=== PATIENT | male | born 1955 | race Caucasian/White ===

== ENCOUNTER 2017-04-03 16:30 | Inpatient (IN) ==
[2017-04-03] MEDS ORDERED: Naloxone 0.4 MG/ML INJ IVP PRN (18:53)
[2017-04-03] MEDS ORDERED: *HR* Dextrose 50 % in Water (Syg) 50 ML SYRINGE IVP PRN (19:00)
[2017-04-03] MEDS ORDERED: D5% in Water 1,000 ML IVC PRN (19:00)
[2017-04-03] MEDS ORDERED: Dextrose Gel 15 GM PO PRN ×2 (19:00)
[2017-04-03] MEDS ORDERED: Albuterol 2.5 MG/3 ML NEBULIZER IH PRN (19:45)
[2017-04-03] MEDS ORDERED: Aspirin 325 MG TABLET PO ONE (19:52)
[2017-04-03] MEDS: Nicotine 21 MG PATCH.TD24 TD SCH (19:57)
[2017-04-03] MEDS ORDERED: methylPREDNISolone 125 MG/2 ML VIAL IVP ONE (20:00)
--- NOTE | 2017-04-03 20:09 | Internal Med History&Physical ---
<Becky Azul R - Last Filed: 04/03/17 23:26> Date of Encounter: 04/03/17 Assessment and Plan (1) Acute respiratory acidosis Current visit: Yes Status: Acute Acute hypercapneic respiratory failure / Respiratory acidosis: Treat with BiPAP therapy and bronchodilators. Monitor ABGs (2) Hyperkalemia Current visit: Yes Status: Acute Treat with kayexalate Internal Medicine - H&P: HPI History of present illness: Mr. Thompson is a 61 year old male Internal Medicine - H&P: Meds Aspirin 81 mg PO DAILY 03/15/16 [History] Cholecalciferol (Vitamin D3) [Vitamin D3] 1,000 unit PO BID 03/15/16 [History] Insulin NPH/REG 70/30 (HUMAN) [Humulin 70/30 Vial] 10 unit SQ QPM 03/15/16 [ History] Insulin NPH/REG 70/30 (HUMAN) [Humulin 70/30 Vial] 12 unit SQ QAM 03/15/16 [ History] Magnesium 400 mg PO BID 03/15/16 [History] Albuterol Sulfate [Ventolin Hfa] 18 gm IH Q4H PRN #2 hfa.aer.ad 03/17/16 [Rx] Budesonide/Formoterol 80/4.5 [Symbicort 80/4.5] 2 puff IH BIDR #2 inhaler 03/17 [Rx] Baclofen 20 mg PO QID 04/03/17 [History] Cyanocobalamin (Vitamin B-12) [Vitamin B12] 1,000 mcg PO BID 04/03/17 [History] Lisinopril [Zestril] 20 mg PO BID 04/03/17 [History] Loratadine [Allergy Relief] 10 mg PO DAILY 04/03/17 [History] Omeprazole 20 mg PO DAILY 04/03/17 [History] Tiotropium [Spiriva] 18 mcg IH DAILY 04/03/17 [History] Tramadol HCl [Ultram] 50 mg PO QID PRN 04/03/17 [History] levETIRAcetam [Keppra] 250 mg PO BID 04/03/17 [History] Allergies No Known Allergies Allergy (Verified 03/15/16 17:09) All Systems PM: A 10-system review of systems was performed and is negative for pertinent findings except as documented above in the HPI. - Constitutional Vitals: Temp Pulse Resp BP Pulse Ox 99.0 F 95 31 132/67 95 04/03/17 19:01 04/03/17 20:00 04/03/17 19:01 04/03/17 19:01 04/03/17 19:01 Internal Med - H&P Results - Labs Labs: Cardiac Enzymes 04/03/17 Range/Units 21:43 Troponin I 0.04 H* (0-0.03) ng/mL Urine 04/03/17 Range/Units 21:04 Urine Color Dark Yellow (Yellow) Urine Clarity Clear (Clear) Urine pH 5.5 (5.0-8.0) pH Units Ur Specific [place] 1.029 H (1.010-1.025) Urine Protein 100 H (Neg-Trace) mg/dL Urine Glucose (UA) 100 H (Normal) mg/dL - ABG Interpretation ABG results: 04/03/17 22:25 ABG pH 7.31 L ABG pCO2 88 H* ABG pO2 92 ABG HCO3 44.3 H ABG Total CO2 47.0 H ABG O2 Saturation 96 ABG Base Excess 13.2 H - Attending Attestation I performed history and physical examination of the patient and discussed management with the DATA STORAGE SPECIALIST / ANP. I reviewed the DATA STORAGE SPECIALIST / ANPs note and agree with documented findings and plan of care. 61 Y/M with h/o HTN, hyperlipidemia, type 2 diabetes, COPD, cirrhosis, seizure disorder - presented to [facility] ER with complaints of shortness of breath and slurred speech. ABG which revealed hypercapnea with PCO2 of 88, and pH of 7.24. Troponin was 0.05, BNP was elevated to 1246. He was started on BiPAP therapy and admitted to the hospitalist service. O/E: Not in acute. Bilateral basal crackles heard. Cardiac: Regular rate and rhythm. Trace bilateral leg edema. EKG personally reviewed by me shows sinus rhythm, T-wave inversions in leads 2, 3, aVF, V1 to V6. Chest x-ray personally reviewed by me - suspect vascular congestion. Labs reviewed. A/P: Acute hypercapneic respiratory failure / Respiratory acidosis: Treat with BiPAP therapy and bronchodilators Acute exacerbation of COPD: Treat with bronchodilators , Solu-Medrol, Azithromycin Possible CHF exacerbation / Elevated BNP: Treat with dose of IV Lasix. Echocardiogram. Monitor renal functions and BNP. Acute kidney injury: Monitor renal function Hyperkalemia: Treat with kayexalate DM: sliding scale insulin Slurred speech: MRI, carotid doppler, echo. Consider Neurology consult <Kalyani Malone - Last Filed: 04/04/17 00:39> Date of Encounter: 04/03/17 Time of Encounter: 20:02 Assessment and Plan (1) Slurred speech Current visit: Yes Status: Acute Patient with slurred speech starting yesterday and continued to today. Head CT was negative for acute intracranial abnormality. Tongue is midline, smile symmetrical, strength equal bilaterally. Possibly due to CO2 narcosis, but will work up for CVA. 325mg of aspirin given. Speech consulted for swallow evaluation MRI head/brain echocardiogram carotid dopplers lipid panel with morning labs (2) Acute exacerbation of chronic obstructive airways disease Current visit: No Status: Acute Patient reporting cough, increasing shortness of breath. Also reporting fever, chills, sweats. ABG reveals respiratory acidosis with pH 7.24 and hypercapnea with PCO2 of 88. Patient started on bipap. Continue bipap and titrate to maintain O2 saturation > 90% Repeat ABG now that he's been on bipap for several hours duoneb treatments QID albuterol nebulizer Q2 PRN solu-medrol 40mg IVP BID mucinex BID azithromycin IVPB daily sputum cultures (3) 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, type II Current visit: No Status: Acute check A1c Check blood sugars Q6h while NPO and ACHS when eating Levemir 8u HS tonight as patient is NPO until he completes swallow study Sliding scale correction dose hypoglycemic protocol. 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 Bipap continuously. Recheck ABG. (5) Renal insufficiency Current visit: No Status: Acute BUN 27 and Cr 1.59. Patient reports poor appetite and poor oral intake over the last several days. Patient also reports decreased urine output and difficulty urinating. Will check UA and urine culture. Patient given 1L bolus at [place] ER. Hold lisinopril. Avoid NSAIDs Recheck chemistry in the morning. (6) Congestive heart failure Current visit: Yes Status: Suspected Suspected CHF with shortness of breath, elevated BNP, trace BLE edema. Patient with no known history of CHF. Will give 20mg of lasix IVP, measure I/Os and daily weights. echocardiogram ordered. Qualifiers: Congestive heart failure type: unspecified congestive heart failure type Congestive heart failure chronicity: acute Qualified Code(s): I50.9 - Heart failure, unspecified (7) Tobacco abuse Current visit: No Status: Acute Patient continues to smoke despite significant COPD. Discussed smoking cessation and offered encouragement. nicotine patch ordered. Smoking cessation education. (8) DVT prophylaxis Current visit: Yes Status: Acute anti-embolic stockings heparin 5000u SQ TID Internal Medicine - H&P: HPI Chief complaint: shortness of breath Admitted From: Emergency Dept Plans for Post Hospital Care: Home History of present illness: Mr. Thompson is a 61 year old male with HTN, hyperlipidemia, type 2 diabetes, COPD , cirrhosis, seizure disorder, who presented to [place] ER with complaints of shortness of breath and slurred speech. The patient reports that he has had worsening shortness of breath over the last several days, and he reports not feeling well with headache, lightheadedness, decreased appetite, palpitations, chills and sweats. Patient's reports his temperature was 102 last evening. He reports a cough, and feels he needs to cough something up, but is unable to get anything out. Yesteraday, he developed slurred speech and this has continued. He denies any numbness or tingling, focal weakness. Evaluation in the [place] ED included an ABG which revealed hypercapnea with PCO2 of 88 , and pH of 7.24. Troponin was mildly elevated at 0.05, BNP was elevated to 1246, but with no baseline for comparison. He had CELINA with BUN and Cr of 27 and 1.59, respectively, creatinine up from recent baseline of 0.8. CT of the head showed no acute abnormality. CXR showed no acute abnormality. On exam, patient was alert and oriented, but difficult to understand with slurred speech. Heart had regular rate and rhythm. Lungs had expiratory rhonchi, prolonged expiratory phase and diminished sounds in the based. Equal strength bilaterally, with symmetric smile and tongue protrusion. Prolonged capillary refill in bilateral toes, bilateral feet cold and pulses +1 bilaterally. Past Med Surg Social Fam HX - Past Medical History Medical history: COPD, coronary artery disease, diabetes, hepatitis, hyperlipidemia, hypertension, liver disease Psychiatric history: anxiety, depression - Past Surgical History Surgical History: cholecystectomy, orthopedic, other (ankle), other - Social History Smoking Status: Current every day smoker (1PPD) Smokeless Tobacco Status: No Alcohol use: none Drug use: none, other - Family History Mother Living Status: Still Living Hx Family Endocrine Disorder: Yes (DM) Father Living Status: Still Living Hx Family Cardiac Disorders: Yes (DE, CABG) Hx Family Endocrine Disorder: Yes (DM) All Systems PM: A 10-system review of systems was performed and is negative for pertinent findings except as documented above in the HPI. - Constitutional Constitutional: anorexia, chills, malaise, night sweats, no fever(s) - EENT Eyes: no change in vision, no discharge, no pain, no photophobia Ears: no ear discharge, no ear pain, no tinnitus Nose, mouth and throat: sore throat, no dysphagia, no nasal discharge, no neck pain - Cardiovascular Cardiovascular ROS IM: dyspnea, lightheadedness, palpitations, no chest pain, no diaphoresis, no syncope - Respiratory Respiratory: cough, dyspnea, wheezing, chest congestion, no excessive phlegm production - Gastrointestinal Gastrointestinal: no abdominal pain, no diarrhea, no hematemesis, no hematochezia, no melena, no nausea, no vomiting - Musculoskeletal Musculoskeletal ROS IM: no numbness, no tingling - Integumentary Integumentary IM: no rash, no unusual bruising - Neurological Neurological ROS: abnormal speech, no confusion, no convulsions, no focal weakness, no numbness, no tingling, no tremor(s) - Hematologic/Lymphatic Hematologic/Lymphatic: no easy bruising - Constitutional Vitals: Temp Pulse Resp BP Pulse Ox 99.0 F 93 31 132/67 95 04/03/17 19:01 04/03/17 19:01 04/03/17 19:01 04/03/17 19:01 04/03/17 19:01 General appearance: Present: A&O X 3, pleasant, obese - Head Head exam: Present: atraumatic, normocephalic - Eye Eye exam: Present: PERRL, conjuntiva pink, sclera anicteric Pupils: Present: PERRL - Neck Neck exam general surgery: Present: supple, trachea midline. Absent: lymphadenopathy - Respiratory Respiratory exam: Present: decreased breath sounds, prolonged expiratory phase, rhonchi. Absent: accessory muscle use, rales, wheezes Additional comments: expiratory rhonchi, diminished bases. - Cardiovascular Cardiovascular exam: Present: RRR, +S1, +S2. Absent: diastolic murmur, gallop, rubs, systolic murmur - GI/Abdominal GI/Abdominal exam: Present: normal bowel sounds, soft, no peritoneal signs. Absent: distended, tenderness - Extremities Exam Extremities exam: Present: pedal edema (trace), radial pulses palpable and symetrical. Absent: calf tenderness, cyanotic, normal capillary refill ( prolonged) - Neurological Exam Neurological exam: Present: oriented X3. Absent: pronater drift, facial droop, speech deficit - Expanded Neurological Exam Speech: Present: slurred Cranial Nerves: EOM's intact PM: Normal, tongue deviation PM: Normal Neuro motor strength exam: LUE: 4, RUE: 4, LLE: 4, RLE: 4 - Skin Skin exam: Present: dry, intact Internal Med - H&P Results - Labs Labs: Labs from [place] ED: WBC 8.8 Hgb 14.4 Hct 46.1 Plt 222 Na 134 K 5.1 CL 90 CO2 35 BUN 27 Cr 1.59 Glu 292 Trop 0.05 BNP 1246 ABG pH .24 PCO2 88 PO2 79 HCO3 37.4 CO2 40.1 O2 sat 92%
[2017-04-03] MEDS: Azithromycin 500 MG in D5% in Water 250 ML IVPB SCH (20:48)
[2017-04-03] MEDS: Insulin LISPRO 300 UNITS/3 ML VIAL SQ SCH (20:49)
[2017-04-03] MEDS: Insulin DETEMIR 100 UNIT/ML X5UNITS SQ SCH (20:49)
[2017-04-03] MEDS: Magnesium Oxide 400 MG TABLET PO SCH (20:49)
[2017-04-03] MEDS: levETIRAcetam 250 MG TABLET PO SCH (20:49)
[2017-04-03] MEDS ORDERED: Insulin DETEMIR 100 UNIT/ML X5UNITS SQ SCH (21:00)
[2017-04-03 21:13] LABS: Bilirubin,Urine Small (Negative); Blood,Urine Negative (Negative); Color,Urine Dark Yellow (Yellow); Glucose,Urine (UA) 100 mg/dL (Normal); Ketones,Urine Negative (Negative); Leukocyte Esterase,Urine Negative (Negative); Nitrite,Urine Negative (Negative); PH,Urine 5.5 pH Units (5.0-8.0); Protein,Urine 100 mg/dL (Neg-Trace); Specific Gravity,Urine 1.029 (1.010-1.025); Urobilinogen,Urine Normal (Normal)
[2017-04-03 21:16] LABS: Clarity,Urine Clear (Clear); Squamous Epithelial Cell,Urine Many per lpf (None-Few)
[2017-04-03 21:28] LABS: Bacteria,Urine Few per hpf (None-Few); Hyaline Casts,Urine Few per lpf (None-Few)
[2017-04-03 22:33] LABS: ABG Base Excess 13.2 mEq/L (-2.0 to 3.0); ABG HCO3 44.3 mEQ/L (21-27); ABG Oxygen Saturation 96 % (95-98); ABG PH 7.31 pH Units (7.32-7.45); ABG PO2 92 mmHg (85-104)
[2017-04-03 22:34] LABS: Blood Gas FiO2 50 %
[2017-04-03 22:35] LABS: ABG PCO2 88 mmHg (35-45)
[2017-04-03] MEDS ORDERED: Furosemide 20 MG/2 ML VIAL IVP ONE (22:47)
[2017-04-03] MEDS: Budesonide/Formoterol 160/4.5 MDI IH SCH (23:06)
[2017-04-03] MEDS: Ipratropium/Albuterol Neb 3 ML IH SCH (23:06)
[2017-04-03 23:32] LABS: Hemoglobin A1C 9.5 %
[2017-04-03] MEDS: *HR* Heparin 5,000 UNIT/ML VIAL SQ SCH (23:48)
[2017-04-04 01:18] LABS: ABG HCO3 47.5 mEQ/L (21-27); ABG Oxygen Saturation 90 % (95-98); ABG PH 7.33 pH Units (7.32-7.45); ABG PO2 64 mmHg (85-104); ABG TCO2 50.3 mEq/L (20-26)
[2017-04-04 01:20] LABS: ABG PCO2 90 mmHg (35-45); Blood Gas FiO2 50 %
[2017-04-04] MEDS: Ipratropium/Albuterol Neb 3 ML IH SCH ×4 (04:00→23:42)
[2017-04-04 05:29] LABS: BUN/Creatinine Ratio 21 (6-26); Blood Urea Nitrogen 29 mg/dL (8-26); Calcium 8.4 mg/dL (8.6-10.8); Carbon Dioxide 39 mEq/L (19-29); Chloride 91 mEq/L (98-109); Chol/HDL Ratio 3.4 (0-4.9); Cholesterol 98 mg/dL (< 200); Glucose 244 mg/dL (70-99); HDL Cholesterol 29 mg/dL (40-59); LDL Cholesterol,Calculated 53 mg/dL (0-99); Osmolality,Calculated 298 (280-300); Potassium 4.9 mEq/L (3.5-4.5); Sodium 137 mEq/L (136-145); Triglycerides 80 mg/dL (< 150); eGFR For African Americans > 60 (> 60); eGFR For Non-African Americans 52 (> 60)
[2017-04-04 05:30] LABS: Basophils % 0.1 %; Hematocrit 42.6 % (37.5-50.1); Immature Granulocytes % 0.4 % (0-4); Lymphocytes # 0.9 K/mcL (0.6-4.6); Lymphocytes % 11.6 %; Mean Corpuscular HGB Conc 30.5 g/dL (31.6-35.5); Mean Corpuscular Hemoglobin 28.3 pg (28.0-33.3); Mean Corpuscular Volume 92.6 fL (83.0-100.0); Mean Platelet Volume 10.8 fL (9.4-12.4); Monocytes # 0.2 K/mcL (0.0-1.3); Monocytes % 2.4 %; Neutrophils # 6.3 K/mcL (1.6-8.9); Platelet Count 183 K/mcL (140-400); Segmented Neutrophils % 85.5 %
[2017-04-04] MEDS: MethylPREDNISolone 40 MG/ML VIAL IVP SCH ×2 (05:32→18:58)
[2017-04-04] MEDS ORDERED: methylPREDNISolone 125 MG/2 ML VIAL IVP SCH (06:00)
[2017-04-04 06:21] LABS: ABG Base Excess 17.9 mEq/L (-2.0 to 3.0); ABG Oxygen Saturation 91 % (95-98); ABG PH 7.37 pH Units (7.32-7.45); ABG PO2 62 mmHg (85-104); ABG TCO2 50.5 mEq/L (20-26)
[2017-04-04 06:22] LABS: Blood Gas FiO2 40 %
[2017-04-04 06:23] LABS: ABG PCO2 83 mmHg (35-45)
[2017-04-04] MEDS: Magnesium Oxide 400 MG TABLET PO SCH ×2 (08:27→20:50)
[2017-04-04] MEDS: Nicotine 21 MG PATCH.TD24 TD SCH (08:27)
[2017-04-04] MEDS: levETIRAcetam 250 MG TABLET PO SCH ×2 (08:27→20:50)
[2017-04-04] MEDS: Aspirin 81 MG TAB.CHEW PO SCH (08:27)
[2017-04-04] MEDS: *HR* Heparin 5,000 UNIT/ML VIAL SQ SCH ×2 (08:27→15:58)
[2017-04-04] MEDS: traMADol 50 MG TABLET PO PRN ×2 (08:37→14:34)
[2017-04-04] MEDS ORDERED: Tiotropium 18 MCG inhalation IH SCH (09:00)
[2017-04-04] MEDS: Budesonide/Formoterol 160/4.5 MDI IH SCH (10:45)
[2017-04-04] MEDS: Insulin LISPRO 300 UNITS/3 ML VIAL SQ SCH ×4 (11:20→21:19)
--- NOTE | 2017-04-04 12:59 | ECHO - Doppler Report ---
Echo with Saline Contrast Name: Bhavesh Thompson Date of Study: 04/04/2017 Date: 1955 Ht: 71.0 in Medical Record#: [id number] Age: 61 Wt: 241.0 lb Gender: Male BSA: 2.28 Order #: [id number] Location: [facility] Room #: 2N08 Reading Physician: Celeste Wu DO Manager Control: Cricket Rdz Ordering Physician: Kalyani Malone CNP Primary Physician: [facility] Indications: Slurred speech Impressions: Technically challenging with off-axis images. LVEF 60%. Normal left ventricular size and systolic function. There is evidence of mild diastolic dysfunction of the left ventricle. Normal right ventricular size and function. No significant valvular dysfunction. No pulmonary hypertension. Left Ventricular Wall Motion: Rest Echo Findings All wall segments showed normal motion. Findings: Study Quality * Technically challenging exam with suboptimal windows. Images taken off-axis. ECG Findings * Normal sinus rhythm. Left Ventricle * LVEF 60%. * Normal LV chamber size, wall thickness and function. * Mild left ventricular diastolic dysfunction. Aortic Valve * No aortic regurgitation. * No aortic stenosis. * Trileaflet aortic valve. * Normal aortic valve structure. Mitral Valve * No mitral regurgitation. * No mitral stenosis. * Normal appearing structure. Tricuspid Valve * Trace tricuspid regurgitation. * Normal tricuspid valve structure. Pulmonic Valve * Pulmonic valve is not well visualized. * No pulmonic stenosis. * No pulmonic regurgitation. Pulmonary Artery * Pulmonary artery not well visualized. Interatrial Septum * No evidence of PFO by color Doppler. * No evidence of PFO with agitated saline contrast. Pericardium * There is no pericardial effusion present. Left Atrium * Normal left atrial size. Right Atrium * Right atrium is not well visualized. Right Ventricle * Normal right ventricular structure and function. Aorta * Not well visualized. IVC * The IVC is not well evaluated. History Hypertension Congestive Heart Failure Congential Heart Disease Contrast: Definity 1.3 ml in 8.7 ml of saline 20 ml. Measurements: BP: 106/ 89 2D Normal Values RVIDd: 3.60 cm <2.7 cm IVSd: .90 cm 0.6 - 1.0 cm LVIDd: 4.10 cm 3.7 - 5.6 cm LVPWd: .90 cm 0.6 - 1.1 cm LVIDs: 2.85 cm 1.5 - 3.6 cm AO: 2.00 cm < 4.0 cm LA: 3.90 cm 2.0 - 4.0cm %FS: 31.70 cm >25 % LA volume: 18 Mitral Valve Peak E:.74 m/sec Peak A:.64 m/sec E/A Ratio:1.2 Peak E' Lat Derek:7.02 cm/s Peak E' Med Derek:7.6 cm/s E/E' Lat Ratio:10.5 E/E' Med Ratio:9.7 Tricuspid Valve TV Regurg Peak Grad: 29.00mmHg TV Regurg Peak Derek: 2.70m/sec Updated by Celeste Wu on 04/04/2017 12:51:25 PM electronically signed on 04/04/2017 12:53:07 PM with status of Final Wall Motion Jerez: 1=Normal, 2=Hypokinesis, 3=Akinesis, 4=Dyskinesis, 5=Aneurysmal, 6=Hyperkinetic, X=Not Visualized (Blank)=Missing
[2017-04-04] MEDS: Pantoprazole 40 MG VIAL IVP SCH (15:59)
--- NOTE | 2017-04-04 19:03 | Internal Med Progress Note ---
Date of Encounter: 04/04/17 Time of Encounter: 11:15 - Assessment and plan (1) Acute respiratory failure with hypercapnia Current Visit: No Status: Acute Assessment and plan: Secondary to acute COPD exacerbation. Chest x-ray reviewed by me shows no acute abnormality. echocardiogram showed LVEF 60%, midl diastolic dysfunction. slowly improving. BIPAP at bedtime and prn. nebs. oxygen, IV solumedrol, azithromycin. (2) Acute exacerbation of chronic obstructive airways disease Current Visit: No Status: Acute (3) Renal insufficiency Current Visit: No Status: Acute Assessment and plan: unclear baseline. continue to monitor. (4) 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, type II Current Visit: No Status: Acute Assessment and plan: levemir. ISS. ADA. 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 ct head negative for acute intra-cranial process. improved per patient and . MRI brain ordered. - Subjective Interval history: patient reports his breathing is better compared to admission. - Constitutional Vitals: Temp Pulse Resp BP Pulse Ox 98.2 F 94 18 131/81 100 04/04/17 15:50 04/04/17 15:50 04/04/17 15:54 04/04/17 15:50 04/04/17 15:54 General appearance: Present: cooperative, A&O X 3, pleasant, obese, answers questions appropriately - Neck Neck exam general surgery: Present: supple, trachea midline. Absent: lymphadenopathy - Respiratory Respiratory exam: Present: decreased breath sounds, wheezes - Cardiovascular Cardiovascular exam: Present: RRR - GI/Abdominal GI/Abdominal exam: Present: normal bowel sounds, soft. Absent: distended, tenderness - Extremities Exam Extremities exam: Present: pedal edema - Neurological Exam Neurological exam: Present: alert, oriented X3, no focal deficits, strengths equal and symetr throughout. Absent: facial droop, speech deficit - Skin Skin exam: Absent: rash Internal Medicine: Result - Labs CBC & Chem 7: 04/04/17 05:06 05/22/17 05:06 Labs: Short CBC 04/04/17 Range/Units 05:06 WBC 7.4 (4.3-11.1) K/mcL Hgb 13.0 (12.9-16.9) g/dL Hct 42.6 (37.5-50.1) % Plt Count 183 (140-400) K/mcL Neutrophils # 6.3 (1.6-8.9) K/mcL BMP 04/04/17 05:06 Sodium 137 Potassium 4.9 H Chloride 91 L Carbon Dioxide 39 H BUN 29 H Creatinine 1.38 H Glucose 244 H Calcium 8.4 L Cardiac Enzymes 04/03/17 Range/Units 21:43 Troponin I 0.04 H* (0-0.03) ng/mL Urine 04/03/17 Range/Units 21:04 Urine Color Dark Yellow (Yellow) Urine Clarity Clear (Clear) Urine pH 5.5 (5.0-8.0) pH Units Ur Specific [place] 1.029 H (1.010-1.025) Urine Protein 100 H (Neg-Trace) mg/dL Urine Glucose (UA) 100 H (Normal) mg/dL - ABG Interpretation ABG results: ABG ABG pH 7.37 pH Units (7.32-7.45) 04/04/17 06:07 ABG pCO2 83 mmHg (35-45) H* 04/04/17 06:07 ABG pO2 62 mmHg (85-104) L 04/04/17 06:07 ABG O2 Saturation 91 % (95-98) L 04/04/17 06:07 - Impressions Impressions Brain MRI 04/03/17 19:56 IMPRESSION: 1. No acute intracranial abnormality. 2. 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 D/ / Romaine Larsen MD / Romaine Larsen MD Interpreting Provider: Romaine Larsen MD - VTE Documentation of Mechanical Device: Graduated compression elastic hosiery Consult Discharge Plan - Plan [facility]errals: [facility] [Primary Care Provider] -
[2017-04-04] MEDS: Azithromycin 500 MG in D5% in Water 250 ML IVPB SCH (20:51)
[2017-04-04] MEDS: Insulin DETEMIR 100 UNIT/ML X5UNITS SQ SCH (20:51)
[2017-04-05] MEDS: *HR* Heparin 5,000 UNIT/ML VIAL SQ SCH ×3 (01:25→16:42)
[2017-04-05] MEDS: Ipratropium/Albuterol Neb 3 ML IH SCH ×4 (04:25→22:26)
[2017-04-05] MEDS: MethylPREDNISolone 40 MG/ML VIAL IVP SCH (06:20)
[2017-04-05 07:01] LABS: BUN/Creatinine Ratio 27 (6-26); Blood Urea Nitrogen 33 mg/dL (8-26); Calcium 8.2 mg/dL (8.6-10.8); Carbon Dioxide 39 mEq/L (19-29); Chloride 90 mEq/L (98-109); Glucose 242 mg/dL (70-99); Magnesium 1.8 mg/dL (1.6-2.6); Osmolality,Calculated 293 (280-300); Phosphorous 2.6 mg/dL (2.3-4.7); Potassium 4.2 mEq/L (3.5-4.5); Sodium 134 mEq/L (136-145); eGFR For African Americans > 60 (> 60); eGFR For Non-African Americans > 60 (> 60)
[2017-04-05 07:06] LABS: Basophils % 0.2 %; Hematocrit 40.7 % (37.5-50.1); Hemoglobin 12.2 g/dL (12.9-16.9); Immature Granulocytes % 0.4 % (0-4); Lymphocytes # 1.3 K/mcL (0.6-4.6); Lymphocytes % 15.7 %; Mean Corpuscular Hemoglobin 27.4 pg (28.0-33.3); Mean Corpuscular Volume 91.5 fL (83.0-100.0); Mean Platelet Volume 10.5 fL (9.4-12.4); Monocytes # 0.6 K/mcL (0.0-1.3); Monocytes % 7.3 %; Neutrophils # 6.2 K/mcL (1.6-8.9); Platelet Count 182 K/mcL (140-400); Red Blood Count 4.45 M/mcL (4.19-5.50); Red Cell Distribution Width 13.7 % (11.5-14.5); Segmented Neutrophils % 76.4 %
[2017-04-05 08:06] LABS: ABG Base Excess 16.2 mEq/L (-2.0 to 3.0); ABG HCO3 44.4 mEQ/L (21-27); ABG Oxygen Saturation 95 % (95-98); ABG PH 7.41 pH Units (7.32-7.45); ABG PO2 77 mmHg (85-104); ABG TCO2 46.5 mEq/L (20-26)
[2017-04-05 08:08] LABS: Blood Gas FiO2 40 %
[2017-04-05 08:10] LABS: ABG PCO2 70 mmHg (35-45)
[2017-04-05] MEDS: Magnesium Oxide 400 MG TABLET PO SCH ×2 (08:47→21:01)
[2017-04-05] MEDS: traMADol 50 MG TABLET PO PRN ×2 (08:47→16:42)
[2017-04-05] MEDS: Insulin LISPRO 300 UNITS/3 ML VIAL SQ SCH ×3 (08:47→16:42)
[2017-04-05] MEDS: levETIRAcetam 250 MG TABLET PO SCH ×2 (08:47→21:01)
[2017-04-05] MEDS: Pantoprazole 40 MG VIAL IVP SCH (08:47)
[2017-04-05] MEDS: Aspirin 81 MG TAB.CHEW PO SCH (08:47)
[2017-04-05] MEDS: Nicotine 21 MG PATCH.TD24 TD SCH (08:48)
--- NOTE | 2017-04-05 13:21 | Carotid Imaging Report ---
Carotid Duplex Patient Name:Bhavesh Thompson Order Number:[id number] Procedure Date:04/04/2017 Date:1955ge:61 yrs Gender:Male Rt.BP:106 / 89 mmHgHeart Rate: Location:[facility] Room #: 2N08 Avionics Manager:Cricket Li Referring MD:Kalyani Malone CNP windows application packager:[facility] Josefina MD:Sumit Tripathi MD Primary Indications:Slurred speech Risk Factors Yes/No Smoking Current Yes Diabetes Yes Impressions: Findings: Left distal ICA has a severe, 60-79% stenosis. Recommendations: Risk Factor Modification, Medical Therapy, and Follow up exam 12 months. Findings Carotid Duplex: Right: The right proximal common carotid artery has a PSV of 77 cm/s and a EDV of 12 cm/s. The right mid common carotid artery has a PSV of 63 cm/s and a EDV of 13 cm/s. The right distal common carotid artery has a PSV of 51 cm/s and a EDV of 13 cm/s. There is nonstenotic plaque in the right bifurcation with a PSV of 38 cm/s and a EDV of 7 cm/s. There is smooth heterogeneous plaque. The right proximal internal carotid artery has a PSV of 59 cm/s and a EDV of 19 cm/s. The right mid internal carotid artery has a PSV of 84 cm/s and a EDV of 26 cm/s. The right distal internal carotid artery has a PSV of 101 cm/s and a EDV of 39 cm/s. The right eca has a PSV of 55 cm/s and a EDV of 8 cm/s. Left: The left proximal common carotid artery has a PSV of 78 cm/s and a EDV of 13 cm/s. The left mid common carotid artery has a PSV of 64 cm/s and a EDV of 10 cm/s. The left distal common carotid artery has a PSV of 60 cm/s and a EDV of 14 cm/s. There is nonstenotic plaque in the left bifurcation with a PSV of 52 cm/s and a EDV of 18 cm/s. There is smooth heterogeneous plaque. There is nonstenotic plaque in the left proximal internal carotid artery with a PSV of 60 cm/s and a EDV of 17 cm/s. There is irregular homogeneous plaque. The left mid internal carotid artery has a PSV of 104 cm/s and a EDV of 41 cm/s. There is 60-79% stenosis in the left distal internal carotid artery with a PSV of 157 cm/s and a EDV of 65 cm/s. There is nonstenotic plaque in the left eca with a PSV of 100 cm/s and a EDV of 10 cm/s. There is smooth homogeneous plaque. The left vertebral artery has a PSV of 71 cm/s and a EDV of 23 cm/s. Prior Study: No prior study available for comparison. Carotid Results Right PSV EDV Assessment Proximal CCA 77 12 Mid CCA 63 13 Distal CCA 51 13 Bifurcation 38 7 Non Stenotic Plaque Proximal ICA 59 19 Mid ICA 84 26 Distal ICA 101 39 ECA 55 8 Left PSV EDV Assessment Proximal CCA 78 13 Mid CCA 64 10 Distal CCA 60 14 Bifurcation 52 18 Non Stenotic Plaque Proximal ICA 60 17 Non Stenotic Plaque Mid ICA 104 41 Distal ICA 157 65 60-79% stenosis ECA 100 10 Non Stenotic Plaque Vertebral Artery 71 23 Ratio's Right ICA/CCA Ratio: 1.60 ICA/CCA Values: 101/63 Left ICA/CCA Ratio: 2.45 ICA/CCA Values: 157/64 Updated by Sumit Tripathi MD on 04/05/2017 1:14:35 PM electronically signed on 04/05/2017 1:15:04 PM with status of Final
--- NOTE | 2017-04-05 15:34 | Internal Med Progress Note ---
Date of Encounter: 04/05/17 Time of Encounter: 10:15 - Assessment and plan (1) Acute respiratory failure with hypercapnia Current Visit: Yes Status: Acute Assessment and plan: Slightly improved. ABG shows compensated respiratory acidosis with PCO2 of 70. We will evaluate for home BiPAP use tonight. Continue bronchodilator therapy. (2) Acute exacerbation of chronic obstructive airways disease Current Visit: Yes Status: Acute Assessment and plan: Continue bronchodilators and O2 supplementation. We will change steroids to oral. (3) 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, type II Current Visit: Yes Status: Acute Assessment and plan: Blood sugars are uncontrolled. We will increase insulin regimen. Continue to monitor blood sugars closely. Qualifiers: 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 complication status: with circulatory complication 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 complication detail: with other circulatory complications 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 manager terminal insulin use: with manager terminal use Qualified Code(s) : E11.59 - Type 2 diabetes mellitus with other circulatory complications; Z79.4 - shelter (current) use of insulin (4) Renal insufficiency Current Visit: Yes Status: Acute Assessment and plan: Improving renal function. Creatinine is 1.22 today. (5) Slurred speech Current Visit: Yes Status: Resolved Assessment and plan: Improved at this time. MRI of the brain does not show any acute infarcts. (6) Tobacco abuse Current Visit: Yes Status: Chronic Assessment and plan: Offered nicotine patch and patient is using that with good results. Wishes to continue to use it after discharge. Will prescribe at the time of discharge. - Subjective Interval history: Patient is somnolent but awakes and answers questions. Denies any new complaints at this time. Feels that his breathing is improving. Has been off BiPAP since this morning. Denies any chest pain. No palpitations. No fever overnight. - Constitutional Vitals: Temp Pulse Resp BP Pulse Ox 97.7 F 82 20 121/72 95 04/05/17 11:31 04/05/17 12:43 04/05/17 11:31 04/05/17 11:31 04/05/17 12:43 General appearance: Present: cooperative, A&O X 3, pleasant, obese, answers questions appropriately - Neck Neck exam general surgery: Present: supple, trachea midline. Absent: lymphadenopathy - Respiratory Respiratory exam: Present: prolonged expiratory phase, wheezes. Absent: accessory muscle use, rales, rhonchi Additional comments: Decreased air entry bilaterally - Cardiovascular Cardiovascular exam: Present: RRR, +S1, +S2. Absent: diastolic murmur, gallop, rubs, systolic murmur - GI/Abdominal GI/Abdominal exam: Present: normal bowel sounds, soft, no peritoneal signs. Absent: distended, tenderness - Extremities Exam Extremities exam: Present: warm, radial pulses palpable and symetrical. Absent : calf tenderness, cyanotic, pedal edema - Neurological Exam Neurological exam: Present: no focal deficits. Absent: facial droop, speech deficit Additional comments: Somnolent but easily awakes - Skin Skin exam: Present: dry, intact Internal Medicine: Result - Labs CBC & Chem 7: 04/05/17 06:19 04/05/17 06:19 Labs: Short CBC 04/05/17 Range/Units 06:19 WBC 8.1 (4.3-11.1) K/mcL Hgb 12.2 L (12.9-16.9) g/dL Hct 40.7 (37.5-50.1) % Plt Count 182 (140-400) K/mcL Neutrophils # 6.2 (1.6-8.9) K/mcL BMP 04/05/17 06:19 Sodium 134 L Potassium 4.2 Chloride 90 L Carbon Dioxide 39 H BUN 33 H Creatinine 1.22 Glucose 242 H Calcium 8.2 L - ABG Interpretation ABG results: ABG ABG pH 7.41 pH Units (7.32-7.45) 04/05/17 07:58 ABG pCO2 70 mmHg (35-45) H* 04/05/17 07:58 ABG pO2 77 mmHg (85-104) L 04/05/17 07:58 ABG O2 Saturation 95 % (95-98) 04/05/17 07:58 - Impressions Impressions Brain MRI 04/03/17 19:56 IMPRESSION: 1. No acute intracranial abnormality. 2. 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 D/ / Romaine Larsen MD / Romaine Larsen MD Interpreting Provider: Romaine Larsen MD - VTE Documentation of Mechanical Device: Graduated compression elastic hosiery Consult Discharge Plan - Plan Referrals: PR,PCP [Primary Care Provider] - 04/14/17 9:15 am - Attending Attestation This document has been at least partially created by [employer] recognition technology by Dr. Oconnor. Errors in grammar, wording or other phrases may exist. If errors are found after the documentation is signed, they will be addressed individually in the addendum section of this document when appropriate.
[2017-04-05] MEDS ORDERED: Insulin LISPRO 300 UNITS/3 ML VIAL SQ SCH (21:00)
[2017-04-05] MEDS: Insulin DETEMIR 100 UNIT/ML X5UNITS SQ SCH (21:01)
[2017-04-05] MEDS: Azithromycin 500 MG in D5% in Water 250 ML IVPB SCH (21:02)
[2017-04-06] MEDS: *HR* Heparin 5,000 UNIT/ML VIAL SQ SCH ×2 (00:28→09:58)
[2017-04-06] MEDS: traMADol 50 MG TABLET PO PRN ×3 (00:33→18:47)
[2017-04-06] MEDS: Ipratropium/Albuterol Neb 3 ML IH SCH ×3 (04:24→16:12)
[2017-04-06] MEDS ORDERED: predniSONE 20 MG TABLET PO SCH (09:00)
[2017-04-06] MEDS: Insulin LISPRO 300 UNITS/3 ML VIAL SQ SCH ×2 (09:34→13:02)
[2017-04-06] MEDS: Pantoprazole 40 MG VIAL IVP SCH (09:58)
[2017-04-06] MEDS: Nicotine 21 MG PATCH.TD24 TD SCH (09:59)
[2017-04-06] MEDS: levETIRAcetam 250 MG TABLET PO SCH (09:59)
[2017-04-06] MEDS: Aspirin 81 MG TAB.CHEW PO SCH (09:59)
[2017-04-06] MEDS: Insulin DETEMIR 100 UNIT/ML X5UNITS SQ SCH (10:00)
[2017-04-06] MEDS: Magnesium Oxide 400 MG TABLET PO SCH (11:34)
--- NOTE | 2017-04-06 14:52 | Discharge Summary ---
Date of Encounter: 04/06/17 Time of Encounter: 14:47 - Discharge Diagnosis (1) Acute respiratory failure with hypercapnia Priority: Primary Status: Acute (2) Acute exacerbation of chronic obstructive airways disease Priority: Secondary Status: Acute (3) 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, type II Priority: Secondary Status: Acute Qualifiers: 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 complication status: with circulatory complication 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 complication detail: with other circulatory complications 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 technician terminal and repeater insulin use: with technician terminal and repeater use Qualified Code(s) : E11.59 - Type 2 diabetes mellitus with other circulatory complications; Z79.4 - care home (current) use of insulin (4) Renal insufficiency Priority: Secondary Status: Acute (5) Slurred speech Priority: Secondary Status: Resolved (6) Tobacco abuse Priority: Secondary Status: Chronic - Discharge Medications Prescriptions: Azithromycin [Zithromax] 500 mg PO DAILY #4 tablet Lisinopril [Zestril] 40 mg PO DAILY #30 tablet predniSONE [PredniSONE] 10 mg PO DAILY 9 Days Home Medications: Aspirin 81 mg PO DAILY 03/15/16 [History] Cholecalciferol (Vitamin D3) [Vitamin D3] 1,000 unit PO BID 03/15/16 [History] Insulin NPH/REG 70/30 (HUMAN) [Humulin 70/30 Vial] 10 unit SQ QPM 03/15/16 [ History] Insulin NPH/REG 70/30 (HUMAN) [Humulin 70/30 Vial] 12 unit SQ QAM 03/15/16 [ History] Magnesium 400 mg PO BID 03/15/16 [History] Budesonide/Formoterol 80/4.5 [Symbicort 80/4.5] 2 puff IH BIDR #2 inhaler 03/17 [Rx] Cyanocobalamin (Vitamin B-12) [Vitamin B12] 1,000 mcg PO BID 04/03/17 [History] Loratadine [Allergy Relief] 10 mg PO DAILY 04/03/17 [History] Omeprazole 20 mg PO DAILY 04/03/17 [History] Tiotropium [Spiriva] 18 mcg IH DAILY 04/03/17 [History] Tramadol HCl [Ultram] 50 mg PO Q6H PRN 04/03/17 [History] levETIRAcetam [Keppra] 250 mg PO BID 04/03/17 [History] Albuterol Sulfate [Ventolin Hfa] 1 puff IH Q4H PRN 04/04/17 [History] Aripiprazole [Abilify] 7.5 mg PO QAM 04/04/17 [History] Bisacodyl [Dulcolax] 5 mg PO DAILY PRN 04/04/17 [History] Lactulose 10 gm PO DAILY PRN 04/04/17 [History] Multivitamin-Min/Iron/FA/Vit K [Multi-Day Plus Minerals Tablet] 1 each PO DAILY 04/04/17 [History] Nicotine Polacrilex [Nicotine Lozenge] 2 mg BC AD 04/04/17 [History] Sennosides/Docusate Sodium [Senna Plus] 1 each PO BID 04/04/17 [History] Simvastatin [Zocor] 20 mg PO HS 04/04/17 [History] Azithromycin [Zithromax] 500 mg PO DAILY #4 tablet 04/06/17 [Rx] Lisinopril [Zestril] 40 mg PO DAILY #30 tablet 04/06/17 [Rx] predniSONE [PredniSONE] 10 mg PO DAILY 9 Days 04/06/17 [Rx] Allergies/Adverse Reactions: Allergies No Known Allergies Allergy (Verified 03/15/16 17:09) Procedures/tests Complete & Pending: Procedures Performed prior 72 hours Category Date Time Status MR head/brain wo con [MR] Routine MRI 04/03/17 19:56 Completed EV carotid duplex imaging BI Routine Y 04/04/17 20:40 Completed EV echocardiogram Routine Y 04/04/17 20:40 Completed Date of admission: 04/03/17 17:33 [facility] care physician[facility] Consults: 04/03/17 18:20 Consult to Director Of Capital Giving [CONS] Routine Reason for SW Consult: [facility] oxygen [facility] 04/03/17 19:43 Consult to Speech Therapy [CONS] Routine Comment: Evaluate, develop and implement POC Reason for Consult: slurred speech, assess swallow Call Completed: No 04/06/17 12:50 Consult to Occupational Therapy [CONS] Routine Comment: Evaluate, develop and implement POC Reason for Consult: Evaluate for home needs; Gen weakness Consult to Physical Therapy [CONS] Routine Comment: Evaluate, develop and implement POC Reason for Consult: Evaluate for home needs; Gen weakness Discharging clinician: Kate Oconnor Anticipated date of discharge: 04/06/17 - Patient Status Disposition: Home Health Service Condition: Good Functional capacity at discharge: uses cane/walker Overall status at discharge: patient is progressing back to baseline - Discharge Instructions Instructions: Chronic Obstructive Pulmonary Disease (DC), Acute Respiratory Distress Syndrome (DC) Follow Up With: DINORAH,PCP [Primary Care Provider] - 04/14/17 9:15 am - Diet and Activity Activity: as per physical therapy Diet: diabetic diet, low fat, low cholesterol, low salt diet Hospital course: Mr. Thompson is a 61 year old male sent with history of COPD, chronic respiratory failure with hypoxia and hypercapnia was admitted here with acute COPD exacerbation and acute on chronic respiratory failure. He was treated for this with bronchodilators, O2 supplementation and IV steroids along with IV antibiotics. He did require supplemental oxygen via noninvasive positive pressure ventilation with BiPAP to ameliorate his symptoms. He has slowly been transitioned off BiPAP but has still been requiring it intermittently. He was evaluated overnight for BiPAP use and has qualified for home BiPAP use. This is currently being arranged. Patient was also evaluated by physical therapy and recommended home health. Currently the patient feels much better and is able to ambulate with the help of therapist and walker. He is stable to be discharged home on antibiotic and steroid taper. On presentation he also had acute kidney injury. He does take this lisinopril and hydrochlorothiazide combination pill. I am stopping the hydrochlorothiazide and continuing lisinopril. For his diabetes, the patient received subcutaneous Levemir and sliding scale insulin. He can resume his usual insulin regimen after discharge. - Time Spent with Patient Total time spent providing and/or coordinating discharge services: Greater than 30 minutes (40 min) - Constitutional Vitals: Temp Pulse Resp BP Pulse Ox 97.7 F 82 20 130/73 95 04/06/17 13:57 04/06/17 13:57 04/06/17 13:57 04/06/17 13:57 04/06/17 13:57 General appearance: Present: cooperative, A&O X 3, pleasant, obese, answers questions appropriately - Respiratory Respiratory exam: Present: prolonged expiratory phase, wheezes. Absent: accessory muscle use, rales, rhonchi - Cardiovascular Cardiovascular exam: Present: RRR, +S1, +S2. Absent: diastolic murmur, gallop, rubs, systolic murmur - GI/Abdominal GI/Abdominal exam: Present: normal bowel sounds, soft, no peritoneal signs. Absent: distended, tenderness - Neurological Exam Neurological exam: Present: alert, CN II-XII intact, oriented X3, no focal deficits. Absent: facial droop, speech deficit - Skin Skin exam: Present: dry, intact - VTE Documentation of Mechanical Device: Graduated compression elastic hosiery - Attending Attestation This document has been at least partially created by [employer] recognition technology by Dr. Oconnor. Errors in grammar, wording or other phrases may exist. If errors are found after the documentation is signed, they will be addressed individually in the addendum section of this document when appropriate.
--- NOTE | 2017-04-06 14:57 | Physician Discharge Referral ---
Home Health/Hosp Referral Info Transfer to: Home Health Provider in Charge Post Discharge: PCP - Diagnosis (1) Acute respiratory failure with hypercapnia Priority: Primary Status: Acute (2) Acute exacerbation of chronic obstructive airways disease Priority: Secondary Status: Acute (3) 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, type II Priority: Secondary Status: Acute (4) Renal insufficiency Priority: Secondary Status: Acute (5) Slurred speech Priority: Secondary Status: Resolved (6) Tobacco abuse Priority: Secondary Status: Chronic - Respiratory Orders Oxygen / L per min (3-4l/min) Smoking Cessation: Smoking cessation has been advised. For more information, call the [place] Tobacco Quit Line at 1-754-OLSI-NOW. - Diet/Nutrition Diet/Nutrition Orders: Cardiac, No Concentrated Sweets (and diabetic) - Activity Activity Orders: Walker - Services Needed Following services are medically necessary services: Physical Therapy, Occupational Therapy - Transfer Medications Prescriptions: Azithromycin [Zithromax] 500 mg PO DAILY #4 tablet Lisinopril [Zestril] 40 mg PO DAILY #30 tablet predniSONE [PredniSONE] 10 mg PO DAILY 9 Days Home Medications: Aspirin 81 mg PO DAILY 03/15/16 [History] Cholecalciferol (Vitamin D3) [Vitamin D3] 1,000 unit PO BID 03/15/16 [History] Insulin NPH/REG 70/30 (HUMAN) [Humulin 70/30 Vial] 10 unit SQ QPM 03/15/16 [ History] Insulin NPH/REG 70/30 (HUMAN) [Humulin 70/30 Vial] 12 unit SQ QAM 03/15/16 [ History] Magnesium 400 mg PO BID 03/15/16 [History] Budesonide/Formoterol 80/4.5 [Symbicort 80/4.5] 2 puff IH BIDR #2 inhaler 03/17 [Rx] Cyanocobalamin (Vitamin B-12) [Vitamin B12] 1,000 mcg PO BID 04/03/17 [History] Loratadine [Allergy Relief] 10 mg PO DAILY 04/03/17 [History] Omeprazole 20 mg PO DAILY 04/03/17 [History] Tiotropium [Spiriva] 18 mcg IH DAILY 04/03/17 [History] Tramadol HCl [Ultram] 50 mg PO Q6H PRN 04/03/17 [History] levETIRAcetam [Keppra] 250 mg PO BID 04/03/17 [History] Albuterol Sulfate [Ventolin Hfa] 1 puff IH Q4H PRN 04/04/17 [History] Aripiprazole [Abilify] 7.5 mg PO QAM 04/04/17 [History] Bisacodyl [Dulcolax] 5 mg PO DAILY PRN 04/04/17 [History] Lactulose 10 gm PO DAILY PRN 04/04/17 [History] Multivitamin-Min/Iron/FA/Vit K [Multi-Day Plus Minerals Tablet] 1 each PO DAILY 04/04/17 [History] Nicotine Polacrilex [Nicotine Lozenge] 2 mg BC AD 04/04/17 [History] Sennosides/Docusate Sodium [Senna Plus] 1 each PO BID 04/04/17 [History] Simvastatin [Zocor] 20 mg PO HS 04/04/17 [History] Azithromycin [Zithromax] 500 mg PO DAILY #4 tablet 04/06/17 [Rx] Lisinopril [Zestril] 40 mg PO DAILY #30 tablet 04/06/17 [Rx] predniSONE [PredniSONE] 10 mg PO DAILY 9 Days 04/06/17 [Rx] Allergies/Adverse Reactions: Allergies No Known Allergies Allergy (Verified 03/15/16 17:09) Certification: Further, I certify that my clinical findings support that this patient is homebound (i.e. absences from home require considerable and taxing effort and are for medical reasons or advent services or infrequently or short duration when for other reasons) because: Homebound Reason: Patient requires assistance of a person or device to safely leave home Attestation: My signature below is to certify that this patient is under my care and that I, or nurse practitioner, or a physician's perinatal breastfeeding assistant working with me, has a face-to -face encounter with this patient.
[2017-04-06 15:55] VITALS: BP 123/52
== END 2017-04-06 18:49 | disposition home health service (06) | DRG 189 ==
LOC: 2NNU 17:33 → SUATTDRO 17:33
PROVIDERS: ADMIT Nurse Practitioner Family; ATTEND Internal Medicine

== ENCOUNTER 2017-08-21 20:17 | Inpatient (IN) ==
[2017-08-21] MEDS ORDERED: Insulin DETEMIR 100 UNIT/ML X5UNITS SQ SCH (21:00)
[2017-08-21] MEDS ORDERED: Ondansetron 4 MG/2 ML VIAL IVP PRN (21:46)
[2017-08-21] MEDS ORDERED: Acetaminophen 650 MG RECTAL SUPP RC PRN (21:46)
[2017-08-21] MEDS ORDERED: Naloxone 0.4 MG/ML INJ IVP PRN (21:46)
--- NOTE | 2017-08-21 21:46 | Internal Med History&Physical ---
Addendum entered and electronically signed by Alex Cabrera DO 08/22/17 00:18: Correct Date of Encounter: 08/21/17 Original Note: <Alex Cabrera - Last Filed: 08/22/17 00:14> Date of Encounter: 08/22/17 Time of Encounter: 21:46 Assessment and Plan (1) Septic shock Current visit: Yes Status: Acute 3 SIRS criteria WBC 16.4, HR 100, RR 24 Lactic acid 2.5, repeat lactic acid 1.5 Pt had decreased level of consciousness and was intubated and sedated prior to transfer. Upon arrival, he was hypotensive 66/40 despite 2L sepsis bolus, and right femoral CVC was placed under ultrasound guidance. Continue antibiotics, IVF, Levophed, and Versed. (2) NSTEMI (non-ST elevated myocardial infarction) Current visit: Yes Status: Acute Repeat EKG revealed worsening ST depressions in leads V3, V4, and V5 with T wave inversion Troponin decreased from 4.69 to 3.93. Trend serial troponin Call was placed to cardiology and patient was started on Heparin drip. (3) Acute renal failure Current visit: No Status: Acute Cr 13.13 --> 11.82 Baseline Cr 0.84 Continue IVF Nephrology consulted Qualifiers: Acute renal failure type: unspecified Qualified Code(s): N17.9 - Acute kidney failure, unspecified (4) Acute respiratory acidosis Current visit: No Status: Acute Repeat ABG slightly improved. Rate increased to 16, repeat ABG in AM (5) Acute exacerbation of chronic obstructive airways disease Current visit: No Status: Acute Patient given Rocephin in ED Start Hydrocortisone, Duonebs, continue Rocephin, Azithromycin, and Zyvox ( avoid nephrotoxins) CXR reveals increased dependent right basilar opacification and effusion. Satisfactory position of endotracheal tube. Pulmonology consulted for vent management (6) Hyperkalemia Current visit: No Status: Acute K 6.1 --> 5.9 Insulin and albuterol given Continue IVF (7) 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, type II Current visit: Yes Status: Acute HGB a1c pending Continue insulin Qualifiers: 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 complication status: with circulatory complication 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 complication detail: with other circulatory complications 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 penitentiary insulin use: with penitentiary use Qualified Code(s) : E11.59 - Type 2 diabetes mellitus with other circulatory complications; Z79.4 - joint terminal attack controller (current) use of insulin; Z79.4 - detention (current) use of insulin ; Z79.4 - joint terminal attack controller (current) use of insulin; Z79.4 - detention (current) use of insulin (8) Congestive heart failure Current visit: No Status: Chronic Echo 04/04/17 revealed EF 60% Will decrease IVF once BP improved. Watch for signs of fluid overload Continue to monitor Qualifiers: Congestive heart failure type: diastolic Congestive heart failure chronicity: chronic Qualified Code(s): I50.32 - Chronic diastolic (congestive ) heart failure (9) Seizure disorder Current visit: Yes Status: Acute Continue home Keppra (10) Hepatitis C Current visit: Yes Status: Acute Elevated LFTs Previous Hep C treatment Continue to monitor Qualifiers: Viral hepatitis chronicity: chronic Hepatic coma status: with hepatic coma Qualified Code(s): B18.2 - Chronic viral hepatitis C (11) Obesity (BMI 30-39.9) Current visit: Yes Status: Acute Discuss diet modification and exercise (12) Tobacco abuse Current visit: No Status: Chronic Discuss tobacco cessation (13) DVT prophylaxis Current visit: No Status: Acute Heparin drip Internal Medicine - H&P: HPI Chief complaint: AMS Admitted From: Emergency Dept ([place] [facility]) History of present illness: Mr. Thompson is a 61 year old male with a PMH of COPD, CHF, and tobacco dependence that presented to the ICU intubated from the [place] [facility] due to AMS and SOB. HPI was obtained from the medical record. reported similar episodes in the past due to CO2 retention. Patient has been non-compliant with CPAP or nebulizers at home for several weeks. Patient was initially put on BiPap , ABG revealed respiratory alkalosis with pCO2 108, Lactic acid 2.5, Troponin 4.69, potassium was 6.1, and creatinine 13.13. Pt had decreased level of consciousness and was intubated and sedated prior to transfer. Upon arrival, EMS reported patient was given Versed in route for agitation, he was hypotensive 66/40 despite 2L sepsis bolus, and right femoral CVC was placed underultrasound guidance. Repeat EKG revealed worsening ST depressions in leads V3, V4, and V5 with T wave inversion. Call was placed to cardiology and patient was started on Heparin drip. Past Med Surg Social Fam HX - Past Medical History Medical history: cirrhosis, CHF, COPD, coronary artery disease, diabetes, hepatitis (C), hyperlipidemia, hypertension, liver disease Psychiatric history: anxiety, depression - Past Surgical History Surgical History: cholecystectomy, orthopedic, other (ankle), other - Social History Smoking Status: Current every day smoker (1PPD) Smokeless Tobacco Status: No Alcohol use: none Drug use: none, other - Family History Mother Living Status: Still Living Hx Family Endocrine Disorder: Yes (DM) Father Living Status: Still Living Hx Family Cardiac Disorders: Yes (DE, CABG) Hx Family Endocrine Disorder: Yes (DM) Internal Medicine - H&P: Meds Aspirin 81 mg PO DAILY 03/15/16 [History] Cholecalciferol (Vitamin D3) [Vitamin D3] 1,000 unit PO BID 03/15/16 [History] Insulin NPH/REG 70/30 (HUMAN) [Humulin 70/30 Vial] 10 unit SQ QPM 03/15/16 [ History] Insulin NPH/REG 70/30 (HUMAN) [Humulin 70/30 Vial] 12 unit SQ QAM 03/15/16 [ History] Magnesium 400 mg PO BID 03/15/16 [History] Budesonide/Formoterol 80/4.5 [Symbicort 80/4.5] 2 puff IH BIDR #2 inhaler 03/17 [Rx] Cyanocobalamin (Vitamin B-12) [Vitamin B12] 1,000 mcg PO BID 04/03/17 [History] Loratadine [Allergy Relief] 10 mg PO DAILY 04/03/17 [History] Omeprazole 20 mg PO DAILY 04/03/17 [History] Tiotropium [Spiriva] 18 mcg IH DAILY 04/03/17 [History] levETIRAcetam [Keppra] 250 mg PO BID 04/03/17 [History] Albuterol Sulfate [Ventolin Hfa] 1 puff IH Q4H PRN 04/04/17 [History] Aripiprazole [Abilify] 7.5 mg PO QAM 04/04/17 [History] Bisacodyl [Dulcolax] 5 mg PO DAILY PRN 04/04/17 [History] Lactulose 10 gm PO DAILY PRN 04/04/17 [History] Multivitamin-Min/Iron/FA/Vit K [Multi-Day Plus Minerals Tablet] 1 each PO DAILY 04/04/17 [History] Sennosides/Docusate Sodium [Senna Plus] 1 each PO BID 04/04/17 [History] Simvastatin [Zocor] 20 mg PO HS 04/04/17 [History] Lisinopril [Zestril] 40 mg PO DAILY #30 tablet 04/06/17 [Rx] 3 Allergy/AdvReac Type Severity Reaction Status Date / Time No Known Allergies Allergy Verified 03/15/16 17:09 ROS unobtainable: due to endotracheal tube All Systems PM: A 10-system review of systems was performed and is negative for pertinent findings except as documented above in the HPI. - Constitutional General appearance: Present: mild distress, obese Exam: Intubated, sedated, responds to noxious stimuli - Head Head exam: Present: atraumatic, normal inspection, normocephalic - Eye Eye exam: Present: PERRL, conjuntiva pink - ENT ENT exam: Present: mucous membranes dry, normal oropharynx (intubated) - Neck Neck exam general surgery: Present: normal inspection, supple. Absent: tenderness - Respiratory Respiratory exam: Present: decreased breath sounds (bibasilar). Absent: wheezes Additional comments: intubated - Cardiovascular Cardiovascular exam: Present: RRR, +S1, +S2 - GI/Abdominal GI/Abdominal exam: Present: normal bowel sounds, soft. Absent: guarding - Additional comments: kc - Extremities Exam Extremities exam: Present: normal capillary refill, warm. Absent: pedal edema Additional comments: restrained, Left femoral CVC in place - Neurological Exam Additional comments: sedated, pupils PERRL, responds to noxious stimuli - Skin Skin exam: Present: dry, normal color Internal Med - H&P Results - Labs CBC & Chem 7: 08/21/17 23:15 08/21/17 22:15 Labs: Laboratory Last Values WBC 10.4 K/mcL (4.3-11.1) 08/21/17 23:15 RBC 3.33 M/mcL (4.19-5.50) L 08/21/17 23:15 Hgb 9.9 g/dL (12.9-16.9) L D 08/21/17 23:15 Hct 34.0 % (37.5-50.1) L 08/21/17 23:15 MCV 102.1 fL (83.0-100.0) H 08/21/17 23:15 MCH 29.7 pg (28.0-33.3) 08/21/17 23:15 MCHC 29.1 g/dL (31.6-35.5) L 08/21/17 23:15 RDW 16.0 % (11.5-14.5) H 08/21/17 23:15 Plt Count 121 K/mcL (140-400) L D 08/21/17 23:15 MPV 11.7 fL (9.4-12.4) 08/21/17 23:15 Nucleated RBCs/100 WBC 1.0 /100 WBC (0) H 08/21/17 23:15 ABG pH 7.20 pH Units (7.32-7.45) L* 08/21/17 23:40 ABG pCO2 71 mmHg (35-45) H* D 08/21/17 23:40 ABG pO2 95 mmHg (85-104) 08/21/17 23:40 ABG HCO3 27 mEq/L (21-27) 08/21/17 23:40 ABG Total CO2 30 mEq/L (20-26) H 08/21/17 23:40 ABG O2 Saturation 95 % (95-98) 08/21/17 23:40 ABG Base Excess -2 mEq/L (-2 to 3) 08/21/17 23:40 Blood Gas Modality VC 08/21/17 23:40 Inspired O2 70.0 (1-15=lpm [id number]=%) 08/21/17 23:40 PEEP 5 cm H2O 08/21/17 23:40 Sodium 141 mEq/L (136-145) 08/21/17 22:15 Potassium 5.9 mEq/L (3.5-4.5) H 08/21/17 22:15 Chloride 97 mEq/L (98-109) L 08/21/17 22:15 Carbon Dioxide 26 mEq/L (19-29) 08/21/17 22:15 BUN 119 mg/dL (8-26) H 08/21/17 22:15 Creatinine 11.82 mg/dL (0.72-1.25) H 08/21/17 22:15 Est GFR ( Amer) 5 (> 60) L 08/21/17 22:15 Est GFR (Non-Af Amer) 4 (> 60) L 08/21/17 22:15 BUN/Creatinine Ratio 10 (6-26) 08/21/17 22:15 Glucose 236 mg/dL (70-99) H 08/21/17 22:15 POC Glucose 211 (58-89) H 08/21/17 21:36 Calculated Osmolality 338 (280-300) H 08/21/17 22:15 Lactic Acid 1.5 mmol/L (0.5-2.2) 08/21/17 22:15 Calcium 6.8 mg/dL (8.6-10.8) L 08/21/17 22:15 Phosphorus 10.7 mg/dL (2.3-4.7) H 08/21/17 22:15 Magnesium 2.8 mg/dL (1.6-2.6) H 08/21/17 22:15 Total Bilirubin 0.8 mg/dL (0.2-1.2) 08/21/17 22:15 AST 346 Units/L (5-34) H 08/21/17 22:15 ALT 402 Units/L (0-55) H 08/21/17 22:15 Alkaline Phosphatase 60 Units/L (38-126) 08/21/17 22:15 Troponin I 3.93 ng/mL (0-0.03) H* 08/21/17 22:15 Serum Total Protein 5.9 g/dL (6.0-8.3) L D 08/21/17 22:15 Albumin 2.7 g/dL (3.5-5.0) L D 08/21/17 22:15 Globulin 3.2 g/dL (2.4-3.5) 08/21/17 22:15 Albumin/Globulin Ratio 0.8 (1.1-2.2) L 08/21/17 22:15 Person Notif of Alonso Gilmore RT 08/21/17 23:40 - ABG Interpretation Interpretation: ABG interpreted by me Interpretation: respiratory acidosis Additional comments: 08/21/17 23:40 ABG pH 7.20 L* ABG pCO2 71 H* D ABG pO2 95 ABG HCO3 27 ABG Total CO2 30 H ABG O2 Saturation 95 ABG Base Excess -2 - EKG Data -: EKG Interpreted by Myself EKG shows normal: sinus rhythm (Rate 71, new ST depression V3, V4, V5 consisitent with anterior lateral ischemia, Right axis deviation) - EKG Data Prior EKG available for review: yes When compared to previous EKG: there are significant changes - Impressions Impressions Chest X-Ray 08/21/17 23:35 IMPRESSION: Increased dependent right basilar opacification and effusion. Satisfactory position of endotracheal tube. Nasogastric tube proximal port at or above the level of the GE junction. The tube should be advanced several cm. D/ / Alex Grimm MD / Alex Grimm MD Interpreting Provider: Alex Grimm MD <Luis Kline - Last Filed: 08/22/17 01:11> Date of Encounter: 08/21/17 Time of Encounter: 22:30 ROS unobtainable: due to endotracheal tube - Constitutional Vitals: Temp Pulse Resp BP Pulse Ox 97.8 F 72 14 75/42 95 08/21/17 22:00 08/21/17 22:07 08/21/17 23:26 08/21/17 22:07 08/21/17 23:26 Exam: Patient is intubated and sedated; responds to painful and loud verbal stimuli - Head Head exam: Present: atraumatic, normal inspection - Expanded Head Exam Head exam expanded: Absent: abrasion, contusion, general tenderness - Eye Eye exam: Present: PERRL. Absent: scleral icterus - ENT ENT exam: Present: mucous membranes dry Additional comments: ETT/OG in place - Neck Neck exam general surgery: Present: full ROM, normal inspection, supple, trachea midline. Absent: tenderness - Respiratory Respiratory exam: Present: decreased breath sounds (right base), rhonchi. Absent: chest wall tenderness, prolonged expiratory phase, rales, wheezes - Cardiovascular Cardiovascular exam: Present: distant heart sounds, RRR, +S1, +S2. Absent: diastolic murmur, JVD, systolic murmur - GI/Abdominal GI/Abdominal exam: Present: normal bowel sounds, soft. Absent: hepatomegaly, splenomegaly, tenderness - Additional comments: Kc in place - Extremities Exam Extremities exam: Present: warm. Absent: calf tenderness, joint swelling, pedal edema - Neurological Exam Additional comments: sedated; responds appropriately to painful stimuli - Psychiatric Additional comments: sedated; unable to assess - Skin Skin exam: Present: dry, normal color, warm Internal Med - H&P Results - Labs CBC & Chem 7: 08/21/17 23:15 08/21/17 22:15 Labs: Short CBC 08/21/17 Range/Units 23:15 WBC 10.4 (4.3-11.1) K/mcL Hgb 9.9 L D (12.9-16.9) g/dL Hct 34.0 L (37.5-50.1) % Plt Count 121 L D (140-400) K/mcL Neutrophils # 9.7 H (1.6-8.9) K/mcL BMP 08/21/17 22:15 Sodium 141 Potassium 5.9 H Chloride 97 L Carbon Dioxide 26 BUN 119 H Creatinine 11.82 H Glucose 236 H Calcium 6.8 L Cardiac Enzymes 08/21/17 Range/Units 22:15 Troponin I 3.93 H* (0-0.03) ng/mL Liver Function 08/21/17 Range/Units 22:15 Total Bilirubin 0.8 (0.2-1.2) mg/dL AST 346 H (5-34) Units/L ALT 402 H (0-55) Units/L Alkaline Phosphatase 60 (38-126) Units/L Albumin 2.7 L D (3.5-5.0) g/dL - ABG Interpretation Interpretation: ABG interpreted by me ABG results: 08/21/17 23:40 ABG pH 7.20 L* ABG pCO2 71 H* D ABG pO2 95 ABG HCO3 27 ABG Total CO2 30 H ABG O2 Saturation 95 ABG Base Excess -2 Interpretation: respiratory acidosis - EKG Data -: EKG Interpreted by Myself - EKG Data Prior EKG available for review: yes When compared to previous EKG: there are significant changes EKG comments: 08/22/17 00:42 Anterolateral ischemia - Impressions ITS Impressions Chest X-Ray 08/21/17 23:35 IMPRESSION: Increased dependent right basilar opacification and effusion. Satisfactory position of endotracheal tube. Nasogastric tube proximal port at or above the level of the GE junction. The tube should be advanced several cm. D/ / Alex Grimm MD / Alex Grimm MD Interpreting Provider: Alex Grimm MD - Diagnostic Studies Chest x-ray Status: image reviewed by me (right basilar process/infiltrate; ETT in position) - Attending Attestation I discussed the patient [place], PMH, ER records, and exam findings with Dr. Cabrera. I then saw and assessed patient independently as well. I also personally spoke with [place] [facility] physician (Dr. Bell) about his care and gave some recommendations prior to transfer to our ICU. Patient is intubated and sedated and unable to provide history. I reviewed all his labs, imaging studies, EKG's, and old records, as well as ER records from [place]. Patient appears to be in septic shock, acute hypercapneic respiratory failure, and has evidence of multi-organ system failure. We are treating him as such and, currently, his vitals have stabilized. Given his acute renal failure, we will avoid Vancomycin and prescribe Zyvox in addition to his other antibiotics. I suspect his source of sepsis is RLL/RML pneumonia. His EKG shows evidence of anterolateral ischemia. I contacted Dr. Jed Landry and reviewed the EKG with him as well. I reviewed his most recent ABG here in our ICU and made some vent changes to address his respiratory acidosis. I did not see a urine drug screen at [place], so I ordered one as I'm concerned he might have overdosed on some prescription or street drugs. Regarding his ARF, I suspect he is intravascularly dry and in need of IVF. His creatinine and potassium have started to improve with IVF hydration. We will consult pulmonology, nephrology, and cardiology to assist in his ICU management. Pt. remains critical and has evidence of multi-organ dysfunction ( as noted above). As such, he carries a high morbidity and mortality risk. A total of 75 minutes critical care time (not including procedure time) spent caring for patient, including my personal review of his records, labs, images, discussions with [place] [facility], Dr. Cabrera, and my own personal exam and decision making process.
[2017-08-21] MEDS ORDERED: Lacri-Lube 3.5 GM TUBE BOTH EYES PRN (21:53)
[2017-08-21] MEDS ORDERED: 0.9 % Sodium Chloride 1,000 ML IVC SCH (22:00)
[2017-08-21] MEDS ORDERED: 0.9 % Sodium Chloride 500 ML IVC ONE (22:49)
[2017-08-21] MEDS: Norepinephrine 4 MG in D5% in Water 250 ML IVC SCH (22:50)
[2017-08-21] MEDS ORDERED: Aspirin 325 MG TABLET PO ONE (22:59)
[2017-08-21 23:06] LABS: Albumin 2.7 g/dL (3.5-5.0); Albumin/Globulin Ratio 0.8 (1.1-2.2); Bilirubin,Total 0.8 mg/dL (0.2-1.2); Calcium 6.8 mg/dL (8.6-10.8); Globulin 3.2 g/dL (2.4-3.5); Magnesium 2.8 mg/dL (1.6-2.6); Phosphorous 10.7 mg/dL (2.3-4.7); Potassium 5.9 mEq/L (3.5-4.5); Total Protein 5.9 g/dL (6.0-8.3)
[2017-08-21] MEDS ORDERED: *HR* Heparin 5,000 UNIT/ML VIAL IVP PRN (23:16)
[2017-08-21] MEDS ORDERED: *HR* Heparin 5,000 UNIT/ML VIAL IVP ONE (23:16)
[2017-08-21] MEDS ORDERED: Dextrose Gel 15 GM PO PRN ×2 (23:31)
[2017-08-21] MEDS ORDERED: D5% in Water 1,000 ML IVC PRN (23:31)
[2017-08-21] MEDS ORDERED: Hydrocortisone Sodium Succ 100 MG/2 ML VIAL IVP ONE (23:36)
[2017-08-21 23:45] LABS: ABG Base Excess -2 mEq/L (-2 to 3); ABG HCO3 27 mEq/L (21-27); ABG Oxygen Saturation 95 % (95-98); ABG PCO2 71 mmHg (35-45); ABG PO2 95 mmHg (85-104); ABG TCO2 30 mEq/L (20-26); Blood Gas Modality VC; Blood Gas PEEP 5 cm H2O
[2017-08-21 23:51] LABS: Basophils % 0.1 %
[2017-08-21 23:53] LABS: Hemoglobin 9.9 g/dL (12.9-16.9); Immature Granulocytes % 0.2 % (0-4); Lymphocytes # 0.4 K/mcL (0.6-4.6); Lymphocytes % 3.9 %; Mean Corpuscular HGB Conc 29.1 g/dL (31.6-35.5); Mean Corpuscular Hemoglobin 29.7 pg (28.0-33.3); Mean Corpuscular Volume 102.1 fL (83.0-100.0); Mean Platelet Volume 11.7 fL (9.4-12.4); Monocytes # 0.3 K/mcL (0.0-1.3); Monocytes % 2.6 %; Neutrophils # 9.7 K/mcL (1.6-8.9); Platelet Count 121 K/mcL (140-400); Red Blood Count 3.33 M/mcL (4.19-5.50); Segmented Neutrophils % 93.2 %
[2017-08-21] MEDS: 0.9 % Sodium Chloride 1,000 ML IVC SCH (23:54)
[2017-08-21] MEDS: levETIRAcetam 250 MG TABLET PO SCH (23:59)
[2017-08-22] MEDS: Lacri-Lube 3.5 GM TUBE BOTH EYES SCH ×6 (00:11→20:01)
[2017-08-22] MEDS: Azithromycin 500 MG in D5% in Water 250 ML IVPB SCH (00:13)
[2017-08-22 00:17] LABS: Anisocytosis 1+ (Not Present); Hypochromasia Present (Not Present); Macrocytosis Present (Not Present); Platelet Estimate Decreased (Normal)
[2017-08-22 00:18] LABS: Polychromasia 1+ (Not Present)
[2017-08-22] MEDS: Ipratropium/Albuterol Neb 3 ML IH SCH ×7 (00:31→23:49)
[2017-08-22] MEDS: Insulin LISPRO 300 UNITS/3 ML VIAL SQ SCH ×3 (00:34→11:03)
[2017-08-22] MEDS: Heparin 25,000 UNIT/500 ML D5W 25,000 UNIT/500 ML MLS IVC SCH ×2 (01:15→21:58)
--- NOTE | 2017-08-22 01:17 | Procedure Note ---
<Alex Cabrera - Last Filed: 08/22/17 01:19> Date of procedure: 08/21/17 Pre-op diagnosis: Septic shock Post-op diagnosis: same Procedure: A time-out was completed verifying correct patient, procedure, site, positioning , and special equipment if applicable. The patient was placed in a dependent position appropriate for central line placement based on the vein to be cannulated. The patients left groin was prepped and draped in sterile fashion. 1 % Lidocaine was used to anesthetize the surrounding skin area. A triple lumen 7- [place] Cordis catheter was introduced into the the common femoral vein using the Seldinger technique and under ultrasound guidance. The catheter was threaded smoothly over the guide wire and appropriate blood return was obtained. Each lumen of the catheter was evacuated of air and flushed with sterile saline. The catheter was then sutured in place to the skin and a sterile dressing applied. Perfusion to the extremity distal to the point of catheter insertion was checked and found to be adequate. Attending/ Dr. Kline was present for the entire procedure. Estimated Blood Loss: 2cc The patient tolerated the procedure well and there were no complications. Anesthesia: local Surgeon: Alex Cabrera Winding Machine Operator: Luis Kline Estimated blood loss (cc): 2 IV fluids (cc): 500 Pathology: none sent Condition: critical Disposition: ICU <Luis Kline - Last Filed: 08/22/17 01:50> Procedure: I was present, witnessed, and supervised procedure in detail as performed by Dr. Cabrera. CVC was necessary for aggressive IVF hydration and pressors in the setting of septic shock.
[2017-08-22 02:54] LABS: Amphetamine Screen,Urine Negative ng/mL (Cutoff=1000); Barbiturate Screen,Urine Negative ng/mL (Cutoff=200); Benzodiazepines Screen,Urine Positive ng/mL (Cutoff=200); Cannabinoid Screen,Urine Negative ng/mL (Cutoff = 50); Cocaine Screen,Urine Negative ng/mL (Cutoff= 300); Opiate Screen,Urine Positive ng/mL (Cutoff=300); Phencyclidine Screen,Urine Negative ng/mL (Cutoff=25)
[2017-08-22 03:09] LABS: 2009 H1N1 PCR NOT DETECTED (Not Detect); Influenza A PCR Negative (Negative); Influenza B PCR Negative (Negative)
[2017-08-22 03:27] LABS: ABG Base Excess -2 mEq/L (-2 to 3); ABG HCO3 27 mEq/L (21-27); ABG Oxygen Saturation 93 % (95-98); ABG PCO2 69 mmHg (35-45); ABG PO2 82 mmHg (85-104); ABG TCO2 29 mEq/L (20-26); Blood Gas Modality VC
[2017-08-22 05:08] LABS: Basophils % 0.1 %; Hematocrit 38.2 % (37.5-50.1); Hemoglobin 11.2 g/dL (12.9-16.9); Immature Granulocytes % 0.4 % (0-4); Lymphocytes # 0.6 K/mcL (0.6-4.6); Lymphocytes % 3.6 %; Mean Corpuscular HGB Conc 29.3 g/dL (31.6-35.5); Mean Corpuscular Hemoglobin 28.9 pg (28.0-33.3); Mean Corpuscular Volume 98.7 fL (83.0-100.0); Mean Platelet Volume 11.5 fL (9.4-12.4); Monocytes # 0.4 K/mcL (0.0-1.3); Monocytes % 2.6 %; Neutrophils # 15.3 K/mcL (1.6-8.9); Nucleated Red Blood Cells 0.9 /100 WBC (0); Platelet Count 213 K/mcL (140-400); Red Blood Count 3.87 M/mcL (4.19-5.50); Red Cell Distribution Width 16.5 % (11.5-14.5); Segmented Neutrophils % 93.3 %
[2017-08-22 05:20] LABS: Hemoglobin A1C 6.5 %
[2017-08-22 05:23] LABS: Albumin 2.7 g/dL (3.5-5.0); Albumin/Globulin Ratio 0.8 (1.1-2.2); Bilirubin,Total 0.9 mg/dL (0.2-1.2); Calcium 6.8 mg/dL (8.6-10.8); Globulin 3.5 g/dL (2.4-3.5); Potassium 5.5 mEq/L (3.5-4.5); Total Protein 6.2 g/dL (6.0-8.3)
[2017-08-22] MEDS ORDERED: Famotidine 20 MG/2 ML VIAL IVP SCH (06:00)
[2017-08-22] MEDS: Norepinephrine 4 MG in D5% in Water 250 ML IVC SCH ×3 (06:13→20:00)
[2017-08-22] MEDS: 0.9 % Sodium Chloride 1,000 ML IVC SCH ×3 (06:15→16:36)
[2017-08-22 07:26] LABS: ABG Base Excess 0 mEq/L (-2 to 3); ABG HCO3 27 mEq/L (21-27); ABG Oxygen Saturation 92 % (95-98); ABG PCO2 51 mmHg (35-45); ABG PH 7.33 pH Units (7.32-7.45); ABG PO2 71 mmHg (85-104); ABG TCO2 28 mEq/L (20-26); Blood Gas Modality ASSIST CONTROL; Blood Gas PEEP 55 cm H2O; Blood Gas Respiration Rate 16; Blood Gas VT 600 cc
[2017-08-22] MEDS: Chlorhexidine Rinse 15 ML MOUTHWASH MM SCH ×2 (07:44→20:19)
[2017-08-22] MEDS: MethylPREDNISolone 40 MG/ML VIAL IVP SCH ×2 (07:44→15:32)
[2017-08-22] MEDS ORDERED: 0.9 % Sodium Chloride 1,000 ML IVC ONE ×2 (07:48→11:31)
[2017-08-22] MEDS: levETIRAcetam 250 MG TABLET PO SCH ×2 (08:32→20:19)
[2017-08-22] MEDS: Aspirin 81 MG TAB.CHEW PO SCH (08:32)
[2017-08-22] MEDS: FentaNYL (PF) 1,000 MCG in 0.9 % Sodium Chloride 80 ML IVC SCH ×3 (08:33→21:49)
[2017-08-22 08:44] LABS: Bilirubin,Urine Negative (Negative); Blood,Urine Moderate (Negative); Clarity,Urine Cloudy (Clear); Color,Urine Yellow (Yellow); Glucose,Urine (UA) Normal (Normal); Ketones,Urine Negative (Negative); Leukocyte Esterase,Urine Negative (Negative); Nitrite,Urine Negative (Negative); PH,Urine 5.5 pH Units (5.0-8.0); Protein,Urine 30 mg/dL (Neg-Trace); Urobilinogen,Urine Normal (Normal)
[2017-08-22 08:46] LABS: Squamous Epithelial Cell,Urine Many per lpf (None-Few)
--- NOTE | 2017-08-22 08:54 | Nephrology Consult Note ---
Date of Encounter: 08/22/17 Time of Encounter: 08:52 Assessment and Plan (1) Acute kidney failure, unspecified Current Visit: Yes Status: Acute Patient presents with a clinical picture of acute kidney injury in the setting of acute hypercapnic respiratory failure, hypotension, sepsis. His serum creatinine is slightly improved compared to admission. Urine output appears to be increasing. He also has clinical picture of a end STEMI. At this point since the patient is exhibiting some mild improvement I would not proceed with any type of dialytic intervention. He should continue to receive support for his blood pressure in the form of IV fluids and vasopressors as needed. Nephrotoxins should be avoided. If his renal function fails to continue to improve he will require dialytic intervention. We will observe him over the next 24 hours. Qualifiers: Acute renal failure type: unspecified Qualified Code(s): N17.9 - Acute kidney failure, unspecified (2) Acute hypercapnic respiratory failure Current Visit: Yes Status: Acute (3) NSTEMI (non-ST elevated myocardial infarction) Current Visit: Yes Status: Acute History of Present Illness - History of Present Illness This is a 61-year-old male who presented to [facility] with complaints of shortness of breath and mental status changes. Patient was found to have hypercapnic respiratory failure. He was [facility]ubated at [facility] Currently he is in the intensive care unit, he sedated on the ventilator. History is obtained from the medical record. Patient presented with acute kidney injury with a creatinine of 11.8. He presented with hypotension with a blood pressure in the 60s systolic. He has been diagnosed with sepsis. Apparently the patient has a history of hypercapnic respiratory failure. Medical record indicates he has a history of COPD seizure disorder type 2 diabetes hepatitis C and congestive heart failure. Medical record indicates he supposed to be on BiPAP but he is not compliant with that at home. Currently she is on levo fed at 10 mics per minute. His creatinine is improved down to 10.10. Urine output is starting to improve. His received several liters of IV fluids for stabilization of his blood pressure. He remains on maintenance IV fluids as well. He has been placed on empiric antibiotics. Baseline creatinine in March ranged from 1.22-1.59. Previous to that serum creatinine was less than 1. Past Med Surg Social Fam HX - Past Medical History Medical history: cirrhosis, CHF, COPD, coronary artery disease, diabetes, hepatitis (C), hyperlipidemia, hypertension, liver disease Psychiatric history: anxiety, depression - Past Surgical History Surgical History: cholecystectomy, orthopedic, other (ankle), other - Social History Smoking Status: Current every day smoker (1PPD) Smokeless Tobacco Status: No Alcohol use: none Drug use: none, other - Family History Mother History Unknown: Yes Living Status: Still Living Hx Family Endocrine Disorder: Yes (DM) Father Living Status: Still Living Hx Family Cardiac Disorders: Yes ([place], CABG) Hx Family Endocrine Disorder: Yes (DM) Medications and Allergies Aspirin 81 mg PO DAILY 03/15/16 [History] Cholecalciferol (Vitamin D3) [Vitamin D3] 1,000 unit PO BID 03/15/16 [History] Insulin NPH/REG 70/30 (HUMAN) [Humulin 70/30 Vial] 10 unit SQ QPM 03/15/16 [ History] Insulin NPH/REG 70/30 (HUMAN) [Humulin 70/30 Vial] 12 unit SQ QAM 03/15/16 [ History] Magnesium 400 mg PO BID 03/15/16 [History] Budesonide/Formoterol 80/4.5 [Symbicort 80/4.5] 2 puff IH BIDR #2 inhaler 03/17 [Rx] Cyanocobalamin (Vitamin B-12) [Vitamin B12] 1,000 mcg PO BID 04/03/17 [History] Loratadine [Allergy Relief] 10 mg PO DAILY 04/03/17 [History] Omeprazole 20 mg PO DAILY 04/03/17 [History] Tiotropium [Spiriva] 18 mcg IH DAILY 04/03/17 [History] levETIRAcetam [Keppra] 250 mg PO BID 04/03/17 [History] Albuterol Sulfate [Ventolin Hfa] 1 puff IH Q4H PRN 04/04/17 [History] Aripiprazole [Abilify] 7.5 mg PO QAM 04/04/17 [History] Bisacodyl [Dulcolax] 5 mg PO DAILY PRN 04/04/17 [History] Lactulose 10 gm PO DAILY PRN 04/04/17 [History] Multivitamin-Min/Iron/FA/Vit K [Multi-Day Plus Minerals Tablet] 1 each PO DAILY 04/04/17 [History] Sennosides/Docusate Sodium [Senna Plus] 1 each PO BID 04/04/17 [History] Simvastatin [Zocor] 20 mg PO HS 04/04/17 [History] Lisinopril [Zestril] 40 mg PO DAILY #30 tablet 04/06/17 [Rx] 3 Allergy/AdvReac Type Severity Reaction Status Date / Time No Known Allergies Allergy Verified 03/15/16 17:09 Review of Systems ROS unobtainable: due to endotracheal tube Exam - Vital Signs Vital signs: Initial Vital Signs Temp Pulse Resp BP Pulse Ox 97.3 F L 62 14 84/45 100 08/21/17 21:30 08/21/17 21:30 08/21/17 21:30 08/21/17 21:30 08/21/17 21:30 Vital Signs - Last 8 Hours Temp Pulse Resp BP Pulse Ox 08/22/17 08:00 81 16 110/60 92 08/22/17 07:31 16 110/57 94 08/22/17 07:23 97.6 F 08/22/17 06:00 77 16 105/57 94 08/22/17 05:19 16 92 08/22/17 05:00 75 16 95/48 92 08/22/17 04:05 16 93 08/22/17 04:00 97.6 F 77 16 88/51 93 08/22/17 03:20 16 94 08/22/17 03:16 16 94 08/22/17 03:00 79 16 98/56 94 08/22/17 02:00 89 16 101/58 95 08/22/17 01:00 78 16 85/51 91 08/22/17 00:56 14 91 Intake and Output 08/21/17 08/22/17 08/22/17 23:59 07:59 15:59 Intake Total 1003 / 1003 1601 / 1601 1480 / 1480 Output Total 300 / 300 750 / 750 Balance 703 / 703 851 / 851 1480 / 1480 Intake: IV Fluids 1003 / 1003 1601 / 1601 1480 / 1480 0.9 % Sodium Chloride 1,000 ML 1000 / 1000 1000 / 1000 @ 3750 mls/hr IVC .Q16M ONE Rx# :[id number] 0.9 % Sodium Chloride 500 ML @ 1000 / 1000 1875 mls/hr IVC .Q16M ONE Rx#: [id number] Heparin 25,000 UNIT/500 ML D5W 180 / 180 25,000 unit In 500 ml @ 9.25 UNIT/KG/HR 20.017 mls/hr IVC . Q24H MESSI Rx#:[id number] Versed 50 MG In 0.9 % Sodium 100 / 100 Chloride 90 ML @ 2 MG/HR 4 mls/ hr IVC CONT MESSI Rx#:[id number] Levophed 4 MG In Dextrose 5% 3 / 3 251 / 251 250 ML @ 8 MCG/MIN 30.48 mls/hr IVC CONT MESSI Rx#:[id number] Zithromax 500 mg In Dextrose 5% 250 / 250 250 ML @ 252 mls/hr IVPB Q24H MESSI Rx#:[id number] Zyvox Premix 600mg/300mL 600 mg 300 / 300 In 300 ml @ 150 mls/hr IVPB Q12HR MESSI Rx#:[id number] Output: Catheter 300 / 300 750 / 750 Other: Weight 108.2 kg Blood Glucose* 211 275 - General Appearance Exam: Patient is sedated on the ventilator. Blood pressure is around 100 systolic while receiving levo fed at 10 mics per minute. Lungs coarse breath sounds. Heart regular rate and rhythm. Abdomen is protuberant. Bowel sounds are present. No masses or organomegaly guarding nor rigidity. There is some mild lower extremity swelling. Queen catheter is in place. Results - Lab Results 08/22/17 05:00 08/22/17 05:00 Most recent lab results ABG pH 7.33 pH Units (7.32-7.45) D 08/22/17 07:22 ABG pCO2 51 mmHg (35-45) H 08/22/17 07:22 ABG pO2 71 mmHg (85-104) L 08/22/17 07:22 ABG HCO3 27 mEq/L (21-27) 08/22/17 07:22 ABG O2 Saturation 92 % (95-98) L 08/22/17 07:22 Calcium 6.8 mg/dL (8.6-10.8) L 08/22/17 05:00 Phosphorus 10.7 mg/dL (2.3-4.7) H 08/21/17 22:15 Magnesium 2.8 mg/dL (1.6-2.6) H 08/21/17 22:15 Consult Discharge Plan - Plan [facility]Primary Care Provider[facility] -
[2017-08-22 08:57] LABS: Bacteria,Urine Few per hpf (None-Few); Hyaline Casts,Urine Few per lpf (None-Few)
[2017-08-22] MEDS: *HR* Heparin 5,000 UNIT/ML VIAL IVP PRN ×2 (08:58→21:56)
[2017-08-22] MEDS ORDERED: Calcium Gluconate 1,000 MG in D5% in Water 100 ML IVPB ONE (09:38)
--- NOTE | 2017-08-22 09:56 | Cardiology Consult Note ---
<Randy Chirinos - Last Filed: 08/22/17 10:55> Date of Encounter: 08/22/17 Time of Encounter: 09:00 Assessment and Plan (1) NSTEMI (non-ST elevated myocardial infarction) Current Visit: Yes Status: Acute Patient is a 61 yo male with PMHx of non-compliant COPD, type 2 diabetes, tobacco use, CHF, hepatitis C who presents altered, dypsneic, and in septic shock. He is currently intubated and continues to be altered. EKG was independently read and demonstrates ST depressions on Leads V3, V4, V5 when compared to Mar, 2017. Troponins are elevated and downtrending 2.46<3.93. Unaware of Stress test in the past. Last echocardiogram on March 2017 demonstrated EF = 60% with normal wall motion. Nephrology is following and recommends for nephrotoxins to be avoided due to CELINA. Patient continues to require pressor support due to septic shock. Cardiac rehab not appropriate at this time. We recommend limited echo to assess heart function and physiology. DEEDEE score 3 + (male, uncontrolled type 2 diabetes, history of smoking). [facility] when patient is more hemodynamically stable and will continue to follow-up on nephrology recommendations. (2) Septic shock Current Visit: Yes Status: Acute The patient presented with clinical picture of septic shock with leukocytosis, tachycardia, tachypnea, and hypotensive. He was intubated and right femoral CVC placed for vasopressor support. The patient continues to be altered. Vital signs today are stable on mechanical ventilation and levophed. White blood cell count continues to be elevated. Continue antibiotics, IVF. Wean off vasopressor and sedation as appropriate. (3) Acute kidney failure, unspecified Current Visit: Yes Status: Acute Patient has clinical picture of acute kidney injury in the setting of septic shock, respiratory failure, and NSTEMI. Serum creatinine and urine output are improving. Nephrology is on board and recommends avoidance of nephrotoxins, and continuation of IVF and vasopressors as needed. Continue to monitor kidney function and HD if needed. Qualifiers: Acute renal failure type: unspecified Qualified Code(s): N17.9 - Acute kidney failure, unspecified (4) Acute hypercapnic respiratory failure Current Visit: Yes Status: Acute The patient was intubated and on mechanical ventilation; pulmonology team is on board and managing vent settings. Respiratory acidosis is improving. Continue steroids, Duonebs, Rocephin, Azithromycin, and Zyvox. Avoid nephrotoxins due to CELINA. CXR reveals increased dependent right basilar opacification and effusion. Satisfactory position of endotracheal tube. Manage per pulmonology team. (5) 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, type II Current Visit: No Status: Acute HbA1c = 6.5. Hyperglycemia in the setting of history of uncontrolled diabetes mellitus type II and currently treated with steroids. SSI for hyperglycemic control during inpatient admission. Continue to monitor with POC glucose and a.m. labs. 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 Continue to monitor with a.m. labs. (7) Hepatitis C Current Visit: No Status: Acute Patient has history of hepatitis C. LFTs are elevated. Avoid hepatotoxins if possible. Continue to monitor with a.m. labs. Qualifiers: Viral hepatitis chronicity: chronic Hepatic coma status: with hepatic coma Qualified Code(s): B18.2 - Chronic viral hepatitis C (8) DVT prophylaxis Current Visit: Yes Status: Acute Continue Heparin for DVT prophylaxis. Discussion w patient/family: The assessment and plan as outlined above was discussed with the patient and/or family members who expressed understanding and agreement. All questions were answered. Thank you for involving us in the care of your patient. Please call with any questions. History of Present Illness Consult date: 08/22/17 Consult reason: Elevated Troponins with ST depressions Chief complaint: altered mental status and shortness of breath History of present illness: Mr. Thompson is a 61 year old male with PMHx of COPD non-compliant CPAP use, CHF, tobacco use, Diabetes, Hepatitis C presented to ICU intubated from [place] ED secondary to AMS and shortness of breath. Patient continues to be altered and HPI is obtained through medical records. Per H&P, stated that patient has had similar episodes due to non-compliance with CPAP at home. He was initially on BiPap at [place] but ABG revealed worsening respiratory acidosis with pCO2 108, lactic acid 2.5, Troponin 4.69, potassium was 6.1, and creatinine 13.13, and patient was intubated. Upon arrival to EMS at [place], the patient received Versed for agitation, he was hypotensive despite 2L bolus. A right femoral CVC was placed and levophed was administered. Repeat EKG demonstrated worsening ST depressions in leads V3, V4, and V5 with T wave inversions when compared to EKG from Mar, 2017, when he presented for shortness of breath. An echo was performed at that visit with EF 60% and normal wall function. Pulmonology and Nephrology are also consulted. Past Med Surg Social Fam HX - Past Medical History Medical history: cirrhosis, CHF, COPD, coronary artery disease, diabetes, hepatitis (C), hyperlipidemia, hypertension, liver disease Psychiatric history: anxiety, depression - Past Surgical History Surgical History: cholecystectomy, orthopedic, other (ankle), other - Social History Smoking Status: Current every day smoker (1PPD) Smokeless Tobacco Status: No Alcohol use: none Drug use: none, other - Family History Mother History Unknown: Yes Living Status: Still Living Hx Family Endocrine Disorder: Yes (DM) Father Living Status: Still Living Hx Family Cardiac Disorders: Yes ([place], CABG) Hx Family Endocrine Disorder: Yes (DM) Medications and Allergies Aspirin 81 mg PO DAILY 03/15/16 [History] Cholecalciferol (Vitamin D3) [Vitamin D3] 1,000 unit PO BID 03/15/16 [History] Insulin NPH/REG 70/30 (HUMAN) [Humulin 70/30 Vial] 10 unit SQ QPM 03/15/16 [ History] Insulin NPH/REG 70/30 (HUMAN) [Humulin 70/30 Vial] 12 unit SQ QAM 03/15/16 [ History] Magnesium 400 mg PO BID 03/15/16 [History] Budesonide/Formoterol 80/4.5 [Symbicort 80/4.5] 2 puff IH BIDR #2 inhaler 03/17 [Rx] Cyanocobalamin (Vitamin B-12) [Vitamin B12] 1,000 mcg PO BID 04/03/17 [History] Loratadine [Allergy Relief] 10 mg PO DAILY 04/03/17 [History] Omeprazole 20 mg PO DAILY 04/03/17 [History] Tiotropium [Spiriva] 18 mcg IH DAILY 04/03/17 [History] levETIRAcetam [Keppra] 250 mg PO BID 04/03/17 [History] Albuterol Sulfate [Ventolin Hfa] 1 puff IH Q4H PRN 04/04/17 [History] Aripiprazole [Abilify] 7.5 mg PO QAM 04/04/17 [History] Bisacodyl [Dulcolax] 5 mg PO DAILY PRN 04/04/17 [History] Lactulose 10 gm PO DAILY PRN 04/04/17 [History] Multivitamin-Min/Iron/FA/Vit K [Multi-Day Plus Minerals Tablet] 1 each PO DAILY 04/04/17 [History] Sennosides/Docusate Sodium [Senna Plus] 1 each PO BID 04/04/17 [History] Simvastatin [Zocor] 20 mg PO HS 04/04/17 [History] Lisinopril [Zestril] 40 mg PO DAILY #30 tablet 04/06/17 [Rx] 3 Allergy/AdvReac Type Severity Reaction Status Date / Time No Known Allergies Allergy Verified 03/15/16 17:09 ROS unobtainable: due to endotracheal tube All Systems Review: A 10-system review of systems was performed and is negative for pertinent findings except as documented above in the HPI. Physical Examination Vital Signs, Last 4 Hours Temp Pulse Resp BP Pulse Ox 08/22/17 09:34 16 108/61 92 08/22/17 08:00 81 16 110/60 92 08/22/17 07:31 16 110/57 94 08/22/17 07:23 97.6 F 08/22/17 06:00 77 16 105/57 94 General: Other (On mechanical ventilation ) HEENT: Atraumatic, Normocephaly, Other (endotracheal intubation noted) Neck: No JVD, Normal carotid pulses Cardiac: Reg Rate and Rhythm, Normal S1 and S2, No Murmur Lungs: No Wheeze, Rales, Rhonchi, Other (oh mechanical ventilation ) Abdomen: Soft, Other (Obese. bowel sounds present) Skin: No rashes noted on visualized skin Musculoskeletal: No Chest Wall Tenderness Extremities: No Clubbing, No Cyanosis, No Edema, Normal Pulses, Other (Right femoral CVC noted. Site is clean and without discharge or erythema. ) Other: Urine kc present and draining clear yellow urine. Results 08/22/17 05:00 08/22/17 05:00 Lab Results 08/21/17 08/21/17 08/21/17 22:15 22:15 23:15 WBC 10.4 Hgb 9.9 L D Hct 34.0 L Plt Count 121 L D APTT Sodium 141 Potassium 5.9 H Chloride 97 L Carbon Dioxide 26 BUN 119 H Creatinine 11.82 H Glucose 236 H Calcium 6.8 L Magnesium 2.8 H Total Bilirubin 0.8 AST 346 H ALT 402 H Alkaline Phosphatase 60 Troponin I 3.93 H* 08/21/17 08/22/17 08/22/17 23:45 05:00 05:00 WBC 16.4 H D Hgb 11.2 L Hct 38.2 Plt Count 213 D APTT 26.8 Sodium Potassium Chloride Carbon Dioxide BUN Creatinine Glucose Calcium Magnesium Total Bilirubin AST ALT Alkaline Phosphatase Troponin I 2.46 H* 08/22/17 08/22/17 05:00 07:35 WBC Hgb Hct Plt Count APTT 46.9 H D Sodium 136 Potassium 5.5 H Chloride 95 L Carbon Dioxide 24 BUN 121 H Creatinine 10.10 H Glucose 342 H Calcium 6.8 L Magnesium Total Bilirubin 0.9 AST 295 H ALT 393 H Alkaline Phosphatase 64 Troponin I Consult Discharge Plan - Plan [facility]errals: [facility] [Primary Care Provider[facility] - <Celeste Wu - Last Filed: 08/22/17 12:59> Date of Encounter: 08/22/17 - Attending Attestation I examined this patient and my medical decision-making was reviewed with the Resident Physician. I agree with the documented findings, disposition and treatment plan as described. PE: Intubated, sedated on mechanical ventilation ETT in place, atraumatic JVP not well appreciated Regular rate and rhythm, normal S1/S2, no murmur rub or gallop No apparent wheeze rhonchi or rales Abdomen is soft, soft bowel sounds are present Pedal edema is present IMPRESSION: 1. NSTEMI: Patient presented with elevated troponin, peak 4.69 in setting of profound acute renal failure and hypercapnic respiratory distress now intubated. He has also demonstrated ECG changes suggesting ischemia. Reviewed Nephrology notes - recommend avoiding nephrotoxins in hope that renal function improves. Patient with CV risk factors: DM, smoking, HTN, HPL, male gender. Recommend considering cardiac catheterization prior to discharge pending Nephrology input and renal function. Check echo for evaluation of structure and function. Agree with heparin gtt, asa. Holding statin due to elevated LFTs. 2. Hypercapnic respiratory failure: Patient is non compliant with CPAP and appears to be a CO2 retainer - was hospitalized in the Spring for similar issues. Recommend checking echo for evaluation of right sided heart function. Findings and recommendations were discussed in detail with the patient's who was at the bedside. Assessment and Plan Discussion w patient/family: The assessment and plan as outlined above was discussed with the patient and/or family members who expressed understanding and agreement. All questions were answered. Thank you for involving us in the care of your patient. Please call with any questions. History of Present Illness History of present illness: Mr. Thompson is a 61 year old male All Systems Review: A 10-system review of systems was performed and is negative for pertinent findings except as documented above in the HPI. Physical Examination Vital Signs, Last 4 Hours Temp Pulse Resp BP Pulse Ox 08/22/17 11:44 20 114/53 95 08/22/17 11:15 98.0 F 08/22/17 10:00 81 16 108/61 92 08/22/17 09:34 16 108/61 92 08/22/17 09:00 81 16 106/59 92 Results 08/22/17 05:00 08/22/17 05:00 Lab Results 08/21/17 08/21/17 08/21/17 22:15 22:15 23:15 WBC 10.4 Hgb 9.9 L D Hct 34.0 L Plt Count 121 L D APTT Sodium 141 Potassium 5.9 H Chloride 97 L Carbon Dioxide 26 BUN 119 H Creatinine 11.82 H Glucose 236 H Calcium 6.8 L Magnesium 2.8 H Total Bilirubin 0.8 AST 346 H ALT 402 H Alkaline Phosphatase 60 Troponin I 3.93 H* 08/21/17 08/22/17 08/22/17 23:45 05:00 05:00 WBC 16.4 H D Hgb 11.2 L Hct 38.2 Plt Count 213 D APTT 26.8 Sodium Potassium Chloride Carbon Dioxide BUN Creatinine Glucose Calcium Magnesium Total Bilirubin AST ALT Alkaline Phosphatase Troponin I 2.46 H* 08/22/17 08/22/17 05:00 07:35 WBC Hgb Hct Plt Count APTT 46.9 H D Sodium 136 Potassium 5.5 H Chloride 95 L Carbon Dioxide 24 BUN 121 H Creatinine 10.10 H Glucose 342 H Calcium 6.8 L Magnesium Total Bilirubin 0.9 AST 295 H ALT 393 H Alkaline Phosphatase 64 Troponin I
--- NOTE | 2017-08-22 10:51 | Pulmonology Consult Note ---
<Edilberto Higuera - Last Filed: 08/22/17 17:28> Date of Encounter: 08/22/17 Time of Encounter: 10:46 Assessment and Plan (1) Septic shock Current Visit: Yes Status: Acute At [place] 3 SIRS criteria WBC 16.4, HR 100, RR 24. Lactic acid 2.5. Source most likely from PNA. - DUMONT Cultures were taken at [facility] - pending - UA w/ Cx ordered - D/C linezolid - Ct Abx: Day 1 azithromycin and Day 1 Ceftriaxone - SOFA 95% mortality, currently full code - MAP goal >65, continue levophed - sedation: Versed and fentanyl for sedation, [place] score 3, patient became agitated and restarted on propofol - continue maintenance IVF (2) Sepsis with multi-organ dysfunction Current Visit: Yes Status: Acute Involvement includes Heart, lung, kidney and hypotension. Septic shock source most likely PNA. (3) NSTEMI (non-ST elevated myocardial infarction) Current Visit: Yes Status: Acute Trop 5.9, 6.2. EKG St depression V2-V5. Risks include age, diabetes, sex, smoker, HLD, HTN, smoking, HLD. - trop this AM - cardiology following - continue ASA 81, heparin drip (4) Acute renal failure Current Visit: No Status: Acute Cr currently 10.10. 2 L of IVF given at [place] - continue IVF - closely follow I/O - nephrology consulted Qualifiers: Acute renal failure type: unspecified Qualified Code(s): N17.9 - Acute kidney failure, unspecified (5) Acute hypercapnic respiratory failure Current Visit: Yes Status: Acute Most likely due to Opiates and acute exacerbation of COPD with obesity contributing. On admission pH 7.20 pcO2 71 pO2 95 HCO3 27 BE -2 - AC 16 Fi02 PEEP 5 TV 600. ABG came back pH7.33 pCO2 51 - Continue duoneb + methylprednisolone (6) Acute exacerbation of chronic obstructive airways disease Current Visit: No Status: Acute Patient in the last few weeks that his COPD treatments at home were no longer working for him. And last week, he stopped using his home oxygen. home O2 4L. - continue PPX abx - continue methylprednisolone - O2 goal 88-92% (7) Hyperkalemia Current Visit: Yes Status: Acute on admission K 5.9. - with IVF K 5.5 today. Will continue IVF, and closely follow (8) Seizure disorder Current Visit: Yes Status: Acute currently stable. - continue Keppra (9) Acute respiratory failure Current Visit: No Status: Acute ARF type 2 hypoxemia hypercarbic. complicated with infiltrates and effusion on R lung base seen on CXR - ABG pH 7.33 pCO2 51 pO2 71 HCO3 27 satO2 92. - currently mechanically ventilated Qualifiers: Respiratory failure complication: hypercapnia Qualified Code(s): J96.02 - Acute respiratory failure with hypercapnia (10) 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, type II Current Visit: No Status: Acute BG 342 today. 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 denies patient is a current IVDU Qualifiers: Viral hepatitis chronicity: chronic Hepatic coma status: with hepatic coma Qualified Code(s): B18.2 - Chronic viral hepatitis C (12) Obesity (BMI 30-39.9) Current Visit: Yes Status: Acute BMI 32.4. (13) DVT prophylaxis Current Visit: Yes Status: Acute drip hep (14) Goals of care, counseling/discussion Current Visit: Yes Status: Acute Discussed with , patient's goals for therapy. She states he never had anything written down, but he wished to have everything done to keep him alive. She defaults as health proxy. Sheri Thompson [phone] - History of Present Illness Consult date: 08/22/17 Requesting physician: Luis Kline Reason for consult: other (Multiorgan dysfunction syndrome/septic shock) Chief complaint: SOB History of present illness: Mr Thompson is a 60 year old Male on day 1 of admissions 2/2 Multiorgan dysfunction syndrome/Septic shcok most likely source PNA w/ organs involvement of Heart, Lung, kidneys and hypotension. PMHx includes COPD, CHF, Cirrhosis, CAD, T2DM, hep C- treated, HLD, HTN. Patient was seen sedated, on chart review patient was transferred from [facility] ED where he was intubated 2/2 AMS and SOB. Patient has not been compliant with CPAP or nebs for the last few weeks. During transfer patient was agitated and given Versed. Patient is currently full code, and patient was apparently accompanied with . Past Med Surg Social Fam HX - Past Medical History Medical history: cirrhosis, CHF, COPD, coronary artery disease, diabetes, hepatitis (C), hyperlipidemia, hypertension, liver disease Psychiatric history: anxiety, depression - Past Surgical History Surgical History: cholecystectomy, orthopedic, other (ankle), other - Social History Smoking Status: Current every day smoker (1PPD) Smokeless Tobacco Status: No Alcohol use: none Drug use: none, other - Family History Mother History Unknown: Yes Living Status: Still Living Hx Family Endocrine Disorder: Yes (DM) Father Living Status: Still Living Hx Family Cardiac Disorders: Yes (NE, CABG) Hx Family Endocrine Disorder: Yes (DM) Medications and Allergies Aspirin 81 mg PO DAILY 03/15/16 [History] Cholecalciferol (Vitamin D3) [Vitamin D3] 1,000 unit PO BID 03/15/16 [History] Insulin NPH/REG 70/30 (HUMAN) [Humulin 70/30 Vial] 10 unit SQ QPM 03/15/16 [ History] Insulin NPH/REG 70/30 (HUMAN) [Humulin 70/30 Vial] 12 unit SQ QAM 03/15/16 [ History] Magnesium 400 mg PO BID 03/15/16 [History] Budesonide/Formoterol 80/4.5 [Symbicort 80/4.5] 2 puff IH BIDR #2 inhaler 03/17 [Rx] Cyanocobalamin (Vitamin B-12) [Vitamin B12] 1,000 mcg PO BID 04/03/17 [History] Loratadine [Allergy Relief] 10 mg PO DAILY 04/03/17 [History] Omeprazole 20 mg PO DAILY 04/03/17 [History] Tiotropium [Spiriva] 18 mcg IH DAILY 04/03/17 [History] levETIRAcetam [Keppra] 250 mg PO BID 04/03/17 [History] Albuterol Sulfate [Ventolin Hfa] 1 puff IH Q4H PRN 04/04/17 [History] Aripiprazole [Abilify] 7.5 mg PO QAM 04/04/17 [History] Bisacodyl [Dulcolax] 5 mg PO DAILY PRN 04/04/17 [History] Lactulose 10 gm PO DAILY PRN 04/04/17 [History] Multivitamin-Min/Iron/FA/Vit K [Multi-Day Plus Minerals Tablet] 1 each PO DAILY 04/04/17 [History] Simvastatin [Zocor] 20 mg PO HS 04/04/17 [History] Oxycodone HCl/Acetaminophen [Percocet 5-325 mg Tablet] 1 tab PO Q8H PRN [History] 3 Allergy/AdvReac Type Severity Reaction Status Date / Time No Known Allergies Allergy Verified 03/15/16 17:09 ROS unobtainable: due to endotracheal tube All Systems: A 10-system review of systems was performed and is negative for pertinent findings except as documented above in the HPI. Physical Examination Vital Signs: Vital Signs, Last 4 Hours Temp Pulse Resp BP Pulse Ox 08/22/17 09:34 16 108/61 92 08/22/17 09:00 81 16 112/63 92 08/22/17 08:00 81 16 110/60 92 08/22/17 07:31 16 110/57 94 08/22/17 07:23 97.6 F General appearance: asleep Effort: other (on mechanical ventilation) Auscultation: bilateral: wheezes (light expiratory wheezes) Percussion: bilateral: dull Cardiovascular: regular rate and rhythm (no extra heart sounds heard) Gastrointestinal: hypoactive bowel sounds (distended) Extremities: edema (bilateraly LE +2/4) pupils equal and round, unable to assess due to mental status Ventilator Settings Ventilator Settings: Ventilator Settings, Last 8 Hours Ventilator Mode VC+ Ventilator Mode VC+ Ventilator Mode VC+ Ventilator Mode VC+ Ventilator Mode VC+ Ventilator Mode VC+ Ventilator Mode VC+ Ventilator Mode VC+ Ventilator Mode VC+ Ventilator Mode VC+ Ventilator Mode VC+ Ventilator Mode VC+ Ventilator Mode VC+ Ventilator Tidal Volume 600 Setting Ventilator Tidal Volume 600 Setting Ventilator Tidal Volume 600 Setting Ventilator Tidal Volume 600 Setting Ventilator Tidal Volume 600 Setting Ventilator Tidal Volume 600 Setting Ventilator Tidal Volume 500 Setting Ventilator Tidal Volume 600 Setting Ventilator Tidal Volume 500 Setting Ventilator Tidal Volume 600 Setting Ventilator Tidal Volume 500 Setting Ventilator Tidal Volume 500 Setting Ventilator Tidal Volume 500 Setting Ventilator Respiratory Rate 16 Setting Ventilator Respiratory Rate 16 Setting Ventilator Respiratory Rate 16 Setting Ventilator Respiratory Rate 16 Setting Ventilator Respiratory Rate 16 Setting Ventilator Respiratory Rate 16 Setting Ventilator Respiratory Rate 16 Setting Ventilator Respiratory Rate 16 Setting Ventilator Respiratory Rate 16 Setting Ventilator Respiratory Rate 16 Setting Ventilator Respiratory Rate 16 Setting Ventilator Respiratory Rate 16 Setting Ventilator Respiratory Rate 16 Setting Actual Respiratory Rate 16 Actual Respiratory Rate 16 Actual Respiratory Rate 16 Actual Respiratory Rate 16 Actual Respiratory Rate 16 Actual Respiratory Rate 16 Actual Respiratory Rate 16 Actual Respiratory Rate 16 Actual Respiratory Rate 16 Actual Respiratory Rate 16 Actual Respiratory Rate 16 Positive End Expiratory 5 Pressure Positive End Expiratory 5 Pressure Positive End Expiratory 5 Pressure Positive End Expiratory 5 Pressure Positive End Expiratory 5 Pressure Positive End Expiratory 5 Pressure Positive End Expiratory 5 Pressure Positive End Expiratory 5 Pressure Positive End Expiratory 5 Pressure Positive End Expiratory 5 Pressure Positive End Expiratory 5 Pressure Positive End Expiratory 5 Pressure Positive End Expiratory 5 Pressure Peak Inspiratory Airway 31 Pressure Peak Inspiratory Airway 31 Pressure Peak Inspiratory Airway 32 Pressure Peak Inspiratory Airway 31 Pressure Peak Inspiratory Airway 31 Pressure Peak Inspiratory Airway 30 Pressure Peak Inspiratory Airway 30 Pressure Peak Inspiratory Airway 31 Pressure Peak Inspiratory Airway 30 Pressure Peak Inspiratory Airway 25 Pressure Peak Inspiratory Airway 21 Pressure Results - Laboratory Findings CBC and BMP: 08/22/17 05:00 08/22/17 05:00 ABG ABG pH 7.33 pH Units (7.32-7.45) D 08/22/17 07:22 ABG pCO2 51 mmHg (35-45) H 08/22/17 07:22 ABG pO2 71 mmHg (85-104) L 08/22/17 07:22 ABG O2 Saturation 92 % (95-98) L 08/22/17 07:22 Abnormal lab findings: Abnormal lab results WBC 16.4 K/mcL (4.3-11.1) H D 08/22/17 05:00 RBC 3.87 M/mcL (4.19-5.50) L 08/22/17 05:00 Hgb 11.2 g/dL (12.9-16.9) L 08/22/17 05:00 MCHC 29.3 g/dL (31.6-35.5) L 08/22/17 05:00 RDW 16.5 % (11.5-14.5) H 08/22/17 05:00 Neutrophils # 15.3 K/mcL (1.6-8.9) H 08/22/17 05:00 Nucleated RBCs/100 WBC 0.9 /100 WBC (0) H 08/22/17 05:00 Platelet Estimate Decreased (Normal) L 08/21/17 23:15 Polychromasia 1+ (Not Present) A 08/21/17 23:15 Hypochromasia Present (Not Present) A 08/21/17 23:15 Anisocytosis 1+ (Not Present) A 08/21/17 23:15 Macrocytosis Present (Not Present) A 08/21/17 23:15 APTT 46.9 Seconds (26.0-36.0) H D 08/22/17 07:35 ABG pCO2 51 mmHg (35-45) H 08/22/17 07:22 ABG pO2 71 mmHg (85-104) L 08/22/17 07:22 ABG Total CO2 28 mEq/L (20-26) H 08/22/17 07:22 ABG O2 Saturation 92 % (95-98) L 08/22/17 07:22 Potassium 5.5 mEq/L (3.5-4.5) H 08/22/17 05:00 Chloride 95 mEq/L (98-109) L 08/22/17 05:00 BUN 121 mg/dL (8-26) H 08/22/17 05:00 Creatinine 10.10 mg/dL (0.72-1.25) H 08/22/17 05:00 Est GFR ( Amer) 6 (> 60) L 08/22/17 05:00 Est GFR (Non-Af Amer) 5 (> 60) L 08/22/17 05:00 Glucose 342 mg/dL (70-99) H 08/22/17 05:00 POC Glucose 275 (58-89) H 08/22/17 05:28 Hemoglobin A1c 6.5 % (-5.6) H 08/22/17 05:00 Calculated Osmolality 334 (280-300) H 08/22/17 05:00 Calcium 6.8 mg/dL (8.6-10.8) L 08/22/17 05:00 Phosphorus 10.7 mg/dL (2.3-4.7) H 08/21/17 22:15 Magnesium 2.8 mg/dL (1.6-2.6) H 08/21/17 22:15 AST 295 Units/L (5-34) H 08/22/17 05:00 ALT 393 Units/L (0-55) H 08/22/17 05:00 Troponin I 2.46 ng/mL (0-0.03) H* 08/22/17 05:00 Albumin 2.7 g/dL (3.5-5.0) L 08/22/17 05:00 Albumin/Globulin Ratio 0.8 (1.1-2.2) L 08/22/17 05:00 Urine Clarity Cloudy (Clear) A 08/22/17 08:30 Urine Protein 30 mg/dL (Neg-Trace) H 08/22/17 08:30 Urine Blood Moderate (Negative) H 08/22/17 08:30 Urine Microscopic WBC 5-15 per hpf (0-3) H 08/22/17 08:30 Ur Squamous Epith Cells Many per lpf (None-Few) H 08/22/17 08:30 Urine Opiates Screen Positive ng/mL (Llikey=722) H 08/22/17 02:15 U Benzodiazepines Scrn Positive ng/mL (Byqqlr=728) H 08/22/17 02:15 - Clinical Findings Intake & Output: Intake & Output 08/21/17 08/22/17 08/22/17 23:59 07:59 15:59 Intake Total 1003 / 1003 1601 / 1601 1480 / 1480 Output Total 300 / 300 750 / 750 Balance 703 / 703 851 / 851 1480 / 1480 Weight 108.2 kg Consult Discharge Plan - Plan [facility]: [facility] Care Provider[facility] - <Vibha Fulton - Last Filed: 08/22/17 22:16> Date of Encounter: 08/22/17 All Systems: A 10-system review of systems was performed and is negative for pertinent findings except as documented above in the HPI. Physical Examination Vital Signs: Vital Signs, Last 4 Hours Temp Pulse Resp BP Pulse Ox 08/22/17 16:32 16 99/47 95 08/22/17 16:00 95 16 90/44 93 08/22/17 15:55 98.1 F 08/22/17 15:07 16 94 08/22/17 15:00 89 16 96/49 94 08/22/17 14:00 92 16 105/54 94 08/22/17 13:02 16 96/49 94 Ventilator Settings Ventilator Settings: Ventilator Settings, Last 8 Hours Ventilator Mode VC+ Ventilator Mode VC+ Ventilator Mode VC+ Ventilator Mode VC+ Ventilator Mode VC+ Ventilator Mode VC+ Ventilator Mode VC+ Ventilator Mode VC+ Ventilator Mode VC+ Ventilator Mode VC+ Ventilator Tidal Volume 600 Setting Ventilator Tidal Volume 600 Setting Ventilator Tidal Volume 600 Setting Ventilator Tidal Volume 600 Setting Ventilator Tidal Volume 600 Setting Ventilator Tidal Volume 600 Setting Ventilator Tidal Volume 600 Setting Ventilator Tidal Volume 600 Setting Ventilator Tidal Volume 600 Setting Ventilator Tidal Volume 600 Setting Ventilator Respiratory Rate 16 Setting Ventilator Respiratory Rate 16 Setting Ventilator Respiratory Rate 16 Setting Ventilator Respiratory Rate 16 Setting Ventilator Respiratory Rate 16 Setting Ventilator Respiratory Rate 16 Setting Ventilator Respiratory Rate 16 Setting Ventilator Respiratory Rate 16 Setting Ventilator Respiratory Rate 16 Setting Ventilator Respiratory Rate 16 Setting Actual Respiratory Rate 16 Actual Respiratory Rate 16 Actual Respiratory Rate 16 Actual Respiratory Rate 16 Actual Respiratory Rate 16 Actual Respiratory Rate 16 Actual Respiratory Rate 19 Actual Respiratory Rate 19 Actual Respiratory Rate 19 Actual Respiratory Rate 16 Positive End Expiratory 5 Pressure Positive End Expiratory 5 Pressure Positive End Expiratory 5 Pressure Positive End Expiratory 5 Pressure Positive End Expiratory 5 Pressure Positive End Expiratory 5 Pressure Positive End Expiratory 5 Pressure Positive End Expiratory 5 Pressure Positive End Expiratory 5 Pressure Positive End Expiratory 5 Pressure Peak Inspiratory Airway 27 Pressure Peak Inspiratory Airway 27 Pressure Peak Inspiratory Airway 31 Pressure Peak Inspiratory Airway 29 Pressure Peak Inspiratory Airway 27 Pressure Peak Inspiratory Airway 29 Pressure Peak Inspiratory Airway 25 Pressure Peak Inspiratory Airway 25 Pressure Peak Inspiratory Airway 27 Pressure Peak Inspiratory Airway 31 Pressure Results - Laboratory Findings CBC and BMP: 08/22/17 05:00 08/22/17 05:00 ABG ABG pH 7.33 pH Units (7.32-7.45) D 08/22/17 07:22 ABG pCO2 51 mmHg (35-45) H 08/22/17 07:22 ABG pO2 71 mmHg (85-104) L 08/22/17 07:22 ABG O2 Saturation 92 % (95-98) L 08/22/17 07:22 Abnormal lab findings: Abnormal lab results WBC 16.4 K/mcL (4.3-11.1) H D 08/22/17 05:00 RBC 3.87 M/mcL (4.19-5.50) L 08/22/17 05:00 Hgb 11.2 g/dL (12.9-16.9) L 08/22/17 05:00 MCHC 29.3 g/dL (31.6-35.5) L 08/22/17 05:00 RDW 16.5 % (11.5-14.5) H 08/22/17 05:00 Neutrophils # 15.3 K/mcL (1.6-8.9) H 08/22/17 05:00 Nucleated RBCs/100 WBC 0.9 /100 WBC (0) H 08/22/17 05:00 Platelet Estimate Decreased (Normal) L 08/21/17 23:15 Polychromasia 1+ (Not Present) A 08/21/17 23:15 Hypochromasia Present (Not Present) A 08/21/17 23:15 Anisocytosis 1+ (Not Present) A 08/21/17 23:15 Macrocytosis Present (Not Present) A 08/21/17 23:15 APTT 62.8 Seconds (26.0-36.0) H 08/22/17 15:10 ABG pCO2 51 mmHg (35-45) H 08/22/17 07:22 ABG pO2 71 mmHg (85-104) L 08/22/17 07:22 ABG Total CO2 28 mEq/L (20-26) H 08/22/17 07:22 ABG O2 Saturation 92 % (95-98) L 08/22/17 07:22 Potassium 5.5 mEq/L (3.5-4.5) H 08/22/17 05:00 Chloride 95 mEq/L (98-109) L 08/22/17 05:00 BUN 121 mg/dL (8-26) H 08/22/17 05:00 Creatinine 10.10 mg/dL (0.72-1.25) H 08/22/17 05:00 Est GFR ( Amer) 6 (> 60) L 08/22/17 05:00 Est GFR (Non-Af Amer) 5 (> 60) L 08/22/17 05:00 Glucose 342 mg/dL (70-99) H 08/22/17 05:00 POC Glucose 240 (58-89) H 08/22/17 16:02 Hemoglobin A1c 6.5 % (-5.6) H 08/22/17 05:00 Calculated Osmolality 334 (280-300) H 08/22/17 05:00 Calcium 6.8 mg/dL (8.6-10.8) L 08/22/17 05:00 Phosphorus 10.7 mg/dL (2.3-4.7) H 08/21/17 22:15 Magnesium 2.8 mg/dL (1.6-2.6) H 08/21/17 22:15 AST 295 Units/L (5-34) H 08/22/17 05:00 ALT 393 Units/L (0-55) H 08/22/17 05:00 Troponin I 2.46 ng/mL (0-0.03) H* 08/22/17 05:00 Albumin 2.7 g/dL (3.5-5.0) L 08/22/17 05:00 Albumin/Globulin Ratio 0.8 (1.1-2.2) L 08/22/17 05:00 Urine Clarity Cloudy (Clear) A 08/22/17 08:30 Urine Protein 30 mg/dL (Neg-Trace) H 08/22/17 08:30 Urine Blood Moderate (Negative) H 08/22/17 08:30 Urine Microscopic WBC 5-15 per hpf (0-3) H 08/22/17 08:30 Ur Squamous Epith Cells Many per lpf (None-Few) H 08/22/17 08:30 Urine Opiates Screen Positive ng/mL (Njmpys=093) H 08/22/17 02:15 U Benzodiazepines Scrn Positive ng/mL (Dnawcb=964) H 08/22/17 02:15 - Microbiology Findings Microbiology Findings: Microbiology, Last 48 Hours 08/22/17 03:23 Sputum Culture - Preliminary Sputum - Clinical Findings Intake & Output: Intake & Output 08/22/17 08/22/17 08/22/17 07:59 15:59 23:59 Intake Total 1601 / 1601 3083 / 3083 132.6 / 132.6 Output Total 750 / 750 1300 / 1300 Balance 851 / 851 1783 / 1783 132.6 / 132.6 - Attending Attestation I examined this patient and my medical decision-making was reviewed with the Resident Physician. I agree with the documented findings, disposition and treatment plan as described except to the extent set forth below. Patient seen and examined. Labs, radiology, chart personally reviewed. 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 Pulmonary: Acceptable oxygenation and ventilation. Patient is not stable for spontaneous breathing trial. Then changes in the ventilator setting. Bronchodilators. Cardiovascular: patient was resuscitated more aggressively and hoping his vasopressors requirement will be less. Cardiology has been consulted for possible non-ST elevation NE. GI: Nutrition per dietary and GI prophylaxis per routine Heme: DVT prophylaxis per routine ID: Continue antibiotics and plan to de-escalation Renal; urine out put and renal funtion reviewed. Nephrology also has been consulted. Endorcine: blood glucose is monitored. Patient will need insulin drip. Lines: all lines checked and no evidence of infections Skin: skin care to prevent pressure ulcers per nursing routine care I spent 40 min of Critical Care time with this patient. It involved decision making of high complexity to assess, manipulate, and support vital organ system failure and/or to prevent further life threatening deterioration of the patient' s condition. The time involved in the performance of separately reportable procedures was not counted toward critical care time.
--- NOTE | 2017-08-22 13:19 | Electrocardiograph Report ---
[place] [id number] Test Date: 2017-08-21 Pat Name: Bhavesh Thompson Department: 109 Room: 04 Gender: M Resort Manager: SAQIB : [id number] Requested By: Alex Cabrera Order Number: [id number] Reading MD: Zoraida Cox Measurements Intervals [place] Rate: 71 P: 68 AL: 154 QRS: 96 QRSD: 100 T: 40 QT: 404 QTc: 427 Interpretive Statements SINUS RHYTHM BORDERLINE RIGHT AXIS DEVIATIO ST DEVIATION AND MODERATE T-WAVE ABNORMALITY, CONSIDER ANTEROLATERAL ISCHEMIA Electronically Signed On 08-22-2017 13:18:19 EDT by Zoraida Cox
[2017-08-22] MEDS: Insulin Human Regular 100 UNIT in 0.9 % Sodium Chloride 100 ML IVC SCH ×2 (13:34→22:00)
[2017-08-22] MEDS ORDERED: Insulin LISPRO 300 UNITS/3 ML VIAL SQ SCH (21:00)
[2017-08-23] MEDS: MethylPREDNISolone 40 MG/ML VIAL IVP SCH ×3 (00:21→15:22)
[2017-08-23] MEDS: Azithromycin 500 MG in D5% in Water 250 ML IVPB SCH (00:23)
[2017-08-23] MEDS: Lacri-Lube 3.5 GM TUBE BOTH EYES SCH ×6 (00:26→21:22)
[2017-08-23] MEDS: Norepinephrine 4 MG in D5% in Water 250 ML IVC SCH (02:40)
[2017-08-23] MEDS: Ipratropium/Albuterol Neb 3 ML IH SCH ×6 (03:44→23:31)
[2017-08-23 03:47] LABS: ABG Base Excess 5 mEq/L (-2 to 3); ABG HCO3 31 mEq/L (21-27); ABG Oxygen Saturation 93 % (95-98); ABG PCO2 56 mmHg (35-45); ABG PH 7.36 pH Units (7.32-7.45); ABG PO2 72 mmHg (85-104); ABG TCO2 33 mEq/L (20-26); Blood Gas Modality ASSIST CONTROL; Blood Gas PEEP 5 cm H2O; Blood Gas Respiration Rate 16; Blood Gas VT 600 cc
[2017-08-23 04:12] LABS: Hematocrit 35.3 % (37.5-50.1); Hemoglobin 10.7 g/dL (12.9-16.9); Mean Corpuscular HGB Conc 30.3 g/dL (31.6-35.5); Mean Corpuscular Hemoglobin 29.6 pg (28.0-33.3); Mean Corpuscular Volume 97.8 fL (83.0-100.0); Mean Platelet Volume 10.8 fL (9.4-12.4); Platelet Count 128 K/mcL (140-400); Red Blood Count 3.61 M/mcL (4.19-5.50); Red Cell Distribution Width 16.7 % (11.5-14.5)
[2017-08-23 04:23] LABS: Calcium 7.2 mg/dL (8.6-10.8); Potassium 3.7 mEq/L (3.5-4.5)
[2017-08-23] MEDS: *HR* Heparin 5,000 UNIT/ML VIAL IVP PRN (04:41)
[2017-08-23] MEDS: FentaNYL (PF) 1,000 MCG in 0.9 % Sodium Chloride 80 ML IVC SCH (04:53)
[2017-08-23] MEDS ORDERED: Famotidine 20 MG/2 ML VIAL IVP SCH (06:00)
[2017-08-23] MEDS: Aspirin 81 MG TAB.CHEW PO SCH (07:37)
[2017-08-23] MEDS: Chlorhexidine Rinse 15 ML MOUTHWASH MM SCH ×2 (07:38→21:22)
[2017-08-23] MEDS: levETIRAcetam 250 MG TABLET PO SCH ×2 (07:39→21:22)
--- NOTE | 2017-08-23 07:44 | Nephrology Progress Note ---
Date of Encounter: 08/23/17 Time of Encounter: 07:43 - Assessment and Plan (1) Acute kidney failure, unspecified Current Visit: Yes Status: Acute Patient has acute kidney injury in the setting of hypercapnic respiratory failure, sepsis and hypotension, and an STEMI. His blood pressure is improved. He is now on only low-dose levo fed. He has been placed on empiric antibiotics. Renal function is improving. Urine output is satisfactory. There is no indication for acute dialytic intervention. We will continue to follow. Qualifiers: Acute renal failure type: unspecified Qualified Code(s): N17.9 - Acute kidney failure, unspecified (2) Acute hypercapnic respiratory failure Current Visit: Yes Status: Acute (3) NSTEMI (non-ST elevated myocardial infarction) Current Visit: Yes Status: Acute Subjective Interval history: The patient remains intubated but appears to be more alert. From a renal perspective his creatinine is improved significantly. Urine output is excellent. He remains on low dose levo fed for some blood pressure support. Objective - Vital Signs Vital signs: Vital Signs Temp Pulse Resp BP Pulse Ox 08/23/17 07:10 92 16 114/58 94 08/23/17 06:00 87 16 90/48 95 08/23/17 05:47 16 105/56 94 08/23/17 05:00 90 16 103/51 94 08/23/17 04:00 98.0 F 92 16 95/52 94 08/23/17 03:45 16 114/59 94 08/23/17 03:00 91 16 109/56 94 08/23/17 02:28 16 121/55 94 08/23/17 02:00 92 16 121/55 96 08/23/17 01:00 93 16 125/61 94 08/23/17 00:26 98.1 F 08/23/17 00:00 89 16 139/62 94 08/22/17 23:50 16 117/56 95 08/22/17 23:00 96 16 109/47 94 08/22/17 22:02 16 124/60 93 08/22/17 22:00 103 16 106/86 94 08/22/17 21:00 90 16 123/62 93 08/22/17 20:21 98 F 08/22/17 20:00 98.0 F 89 16 100/51 91 08/22/17 19:39 16 103/54 94 08/22/17 19:00 93 16 115/61 91 08/22/17 18:00 90 16 112/58 94 08/22/17 17:00 93 16 88/42 93 08/22/17 16:32 16 99/47 95 08/22/17 16:00 95 16 90/44 93 08/22/17 15:55 98.1 F 08/22/17 15:07 16 94 08/22/17 15:00 89 16 96/49 94 08/22/17 14:00 92 16 105/54 94 08/22/17 13:02 16 96/49 94 08/22/17 13:00 92 16 105/54 94 08/22/17 12:00 90 16 90/46 93 08/22/17 11:44 20 114/53 95 08/22/17 11:15 98.0 F 08/22/17 10:00 81 16 108/61 92 08/22/17 09:34 16 108/61 92 08/22/17 09:00 81 16 106/59 92 08/22/17 08:00 81 16 110/60 92 Intake and Output 08/22/17 08/22/17 08/23/17 15:59 23:59 07:59 Intake Total 3083 / 3083 949.0 / 949.0 1057 / 1057 Output Total 1300 / 1300 550 / 550 1350 / 1350 Balance 1783 / 1783 399.0 / 399.0 -293 / -293 Intake: IV Fluids 3083 / 3083 896.0 / 896.0 925 / 925 0.9 % Sodium Chloride 1,000 ML 1999 / 1999 @ 150 mls/hr IVC .Q6H40M [facility] Rx #:[id number] FentaNYL (PF) 1,000 MCG In 0.9 100 / 100 100 / 100 100 / 100 % Sodium Chloride 80 ML @ 50 MCG/HR 5 mls/hr IVC CONT [facility] Rx #:[id number] Heparin 25,000 UNIT/500 ML D5W 180 / 180 320 / 320 128 / 128 25,000 unit In 500 ml @ 9.25 UNIT/KG/HR 20.017 mls/hr IVC . Q24H [facility] Rx#:[id number] HumuLIN R 100 UNIT In 0.9 % 9 / 9 92.0 / 92.0 63 / 63 Sodium Chloride 100 ML @ 10 UNIT/HR 10.1 mls/hr IVC CONT [facility] Rx#:[id number] Versed 50 MG In 0.9 % Sodium 40 / 40 30 / 30 30 / 30 Chloride 90 ML @ 2 MG/HR 4 mls/ hr IVC CONT [facility] Rx#:[id number] Levophed 4 MG In Dextrose 5% 254 / 254 254 / 254 254 / 254 250 ML @ 8 MCG/MIN 30.48 mls/hr IVC CONT [facility] Rx#:[id number] Diprivan 1,000 mg In 100 ml @ 5 100 / 100 100 / 100 100 / 100 MCG/KG/MIN 3.246 mls/hr IVC . Q24H [facility] Rx#:[id number] Zithromax 500 mg In Dextrose 5% 250 / 250 250 ML @ 252 mls/hr IVPB Q24H [facility] Rx#:[id number] Zyvox Premix 600mg/300mL 600 mg 300 / 300 In 300 ml @ 150 mls/hr IVPB Q12HR [facility] Rx#:[id number] Rocephin 1,000 MG In Dextrose 5 100 / 100 % (Minibag+) 100 ML 100 ML @ 200 mls/hr IVPB DAILY [facility] Rx#: [id number] Oral 0 / 0 Tube Feeding 53 / 53 132 / 132 Output: Catheter 1300 / 1300 550 / 550 1350 / 1350 Other: Weight 114.7 kg Blood Glucose* 329 142 150 Patient Weight 08/23/17 23:59 Weight 114.7 kg - General Appearance Exam: Patient remains intubated but appears to be more alert. Lungs essentially clear to auscultation. Heart regular rhythm. Abdomen is benign. There is no lower extremity swelling. Queen catheter is in place. - Lab 08/23/17 04:00 08/23/17 04:00 Most recent lab results ABG pH 7.36 pH Units (7.32-7.45) 08/23/17 03:44 ABG pCO2 56 mmHg (35-45) H 08/23/17 03:44 ABG pO2 72 mmHg (85-104) L 08/23/17 03:44 ABG HCO3 31 mEq/L (21-27) H 08/23/17 03:44 ABG O2 Saturation 93 % (95-98) L 08/23/17 03:44 Calcium 7.2 mg/dL (8.6-10.8) L 08/23/17 04:00 Phosphorus 10.7 mg/dL (2.3-4.7) H 08/21/17 22:15 Magnesium 2.8 mg/dL (1.6-2.6) H 08/21/17 22:15 - VTE Reasons for not Prescribing Prophylaxis: Not indicated-Anticoagulated or INR therapeutic Consult Discharge Plan - Plan [facility]errals: [facility] [Primary Care Provider[facility] -
[2017-08-23] MEDS ORDERED: 0.9 % Sodium Chloride 1,000 ML IVC ONE (08:18)
--- NOTE | 2017-08-23 09:02 | Cardiology Progress Note ---
<Randy Chirinos - Last Filed: 08/23/17 15:17> Date of Encounter: 08/23/17 Time of Encounter: 08:30 Assessment and Plan (1) NSTEMI (non-ST elevated myocardial infarction) Current Visit: Yes Status: Acute Patient is a 61 yo male with PMHx of non-compliant COPD, type 2 diabetes, tobacco use, CHF, hepatitis C who presents altered, dypsneic, and in septic shock. EKG was independently read and demonstrates ST depressions on Leads V3, V4, V5 when compared to Mar, 2017. Troponins are elevated and downtrending 1.38<2.46<3.93<4.69. Limited Echo demonstrates EF 60-65% with dilated and hypokinetic right ventricle, atypical septal wall motion. Patient has multiple risk factors for CAD(male, uncontrolled type 2 diabetes, history of smoking, HTN, hyperlipedemia). Patient's kidney function is improved and we recommend LHC when patient can tolerate contrast dye. We will follow nephrology recommendations closely. (2) Septic shock Current Visit: Yes Status: Acute The patient presented with clinical picture of septic shock with leukocytosis, tachycardia, tachypnea, and hypotensive. His blood pressure is more stable on minimal pressor support; critical care team currently trying to wean him off. Sedation was discontinued. Patient is responsive this a.m., did well on CPAP trial and was extubated. White blood cell count is improved. Continue antibiotics, IVF. Pressor support as needed. (3) Acute kidney failure, unspecified Current Visit: Yes Status: Acute Patient has clinical picture of acute kidney injury in the setting of septic shock, respiratory failure, and NSTEMI. Kidney function has markedly improved. Nephrology is on board and recommends avoidance of nephrotoxins. Continue to monitor kidney function and HD if needed. We will follow nephrology recommendations closely with plan for C. Qualifiers: Acute renal failure type: unspecified Qualified Code(s): N17.9 - Acute kidney failure, unspecified (4) Acute hypercapnic respiratory failure Current Visit: Yes Status: Acute The patient tolerated CPAP trial and was extubated this morning. Vital signs are stable. Continue steroids, Duonebs, Rocephin, Azithromycin, and Zyvox. CXR reveals increased dependent right basilar opacification and effusion. Satisfactory position of endotracheal tube. Manage per ICU. (5) 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, type II Current Visit: No Status: Acute HbA1c = 6.5. Hyperglycemia in the setting of history of uncontrolled diabetes mellitus type II. SSI for hyperglycemic control during inpatient admission. Continue to monitor with POC glucose and a.m. labs. 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 Continue to monitor with a.m. labs. (7) Hepatitis C Current Visit: No Status: Acute Patient has history of hepatitis C. LFTs are elevated. Avoid hepatotoxins if possible. Continue to monitor with a.m. labs. Qualifiers: Viral hepatitis chronicity: chronic Hepatic coma status: with hepatic coma Qualified Code(s): B18.2 - Chronic viral hepatitis C (8) DVT prophylaxis Current Visit: Yes Status: Acute Continue Heparin for DVT prophylaxis. Discussion w patient/family: The assessment and plan as outlined above was discussed with the patient and/or family members who expressed understanding and agreement. All questions were answered. Thank you for involving us in the care of your patient. Please call with any questions. Subjective Principal diagnosis: NSTEMI Interval history: Per nurse, the patient was able to follow verbal commands this a.m. and is more responsive. The patient has been agitated throughout the night and trying to pull out his lines. He tolerated CPAP trial well and is currently being extubated. Unable to obtain subjective due to patient not responsive to my questions or commands. No other acute events. Objective Vital Signs, Last 4 Hours Temp Pulse Resp BP Pulse Ox 08/23/17 07:51 97.7 F 08/23/17 07:30 16 96/72 94 08/23/17 07:10 92 16 114/58 94 08/23/17 06:00 87 16 90/48 95 08/23/17 05:47 16 105/56 94 General: Other (Patient is being extubated ) HEENT: Atraumatic, Normocephaly Neck: No JVD, Normal carotid pulses Cardiac: Reg Rate and Rhythm, Normal S1 and S2, No Murmur Lungs: Normal Breath Sounds, No Wheeze, Rales, Rhonchi Neuro: Other (Patient is unable to follow verbal commands. Responsive to sternal rub. ) Abdomen: Soft, Non-Tender Skin: No rashes noted on visualized skin Musculoskeletal: No Chest Wall Tenderness Extremities: No Clubbing, No Cyanosis, No Edema, Normal Pulses Results 08/23/17 04:00 08/23/17 04:00 Lab Results 08/22/17 08/22/17 08/22/17 15:10 17:00 21:25 WBC Hgb Hct Plt Count APTT 62.8 H 42.3 H Sodium Potassium Chloride Carbon Dioxide BUN Creatinine Glucose Calcium Troponin I 1.38 H* 08/23/17 08/23/17 08/23/17 04:00 04:00 04:00 WBC 11.2 H Hgb 10.7 L Hct 35.3 L Plt Count 128 L APTT 57.3 H Sodium 142 Potassium 3.7 D Chloride 104 Carbon Dioxide 27 BUN 94 H Creatinine 3.34 H D Glucose 148 H Calcium 7.2 L Troponin I - VTE Reasons for not Prescribing Prophylaxis: Not indicated-Anticoagulated or INR therapeutic Consult Discharge Plan - Plan [facility]errals: [facility] [Primary Care Provider] - <Celeste Wu - Last Filed: 08/23/17 16:20> Date of Encounter: 08/23/17 Assessment and Plan Discussion w patient/family: I examined this patient and my medical decision-making was reviewed with the Resident Physician. I agree with the documented findings, disposition and treatment plan. Mr. Thompson was extubated overnight and is very agitated today with altered mental status. Per report, this is how he also presented. Etiology is uncertain - will defer to primary team. At this time, we would recommend holding off on LHC until patient would be able to cooperate and consent for the procedure. For now, recommend continuing medical management. Statin on hold secondary to elevated LFTs. Also noted on echo is a dilated and hypokinetic RV. Will need to discuss compliance with CPAP as outpatient. Objective Vital Signs, Last 4 Hours Temp Pulse Resp BP Pulse Ox 08/23/17 15:42 98.9 F 08/23/17 14:00 82 20 101/55 91 10/10/17 13:00 87 16 111/56 93 Results 08/23/17 04:00 08/23/17 04:00 Lab Results 08/22/17 08/22/17 08/23/17 17:00 21:25 04:00 WBC 11.2 H Hgb 10.7 L Hct 35.3 L Plt Count 128 L APTT 42.3 H Sodium Potassium Chloride Carbon Dioxide BUN Creatinine Glucose Calcium Troponin I 1.38 H* 08/23/17 08/23/17 08/23/17 04:00 04:00 10:55 WBC Hgb Hct Plt Count APTT 57.3 H 85.8 H Sodium 142 Potassium 3.7 D Chloride 104 Carbon Dioxide 27 BUN 94 H Creatinine 3.34 H D Glucose 148 H Calcium 7.2 L Troponin I
--- NOTE | 2017-08-23 09:06 | Pulmonology Progress Note ---
<Edilberto Higuera - Last Filed: 08/23/17 11:09> Date of Encounter: 08/23/17 Time of Encounter: 09:04 Assessment and Plan (1) Septic shock Current Visit: Yes Status: Acute Source most likely from PNA. CXR showed RLL infiltartes/effusion. HR has been well controlled, and MAP >65. - MAP 80 today, goal >65. will stop levophed today - abx: day 2 of azithromycin + ceftriaxone - tolerated 1.5 hours on CPAP with rapid shallow index of 7.6, and PS 8, then extubated and started on NC O2 (2) Sepsis with multi-organ dysfunction Current Visit: Yes Status: Acute Involvement includes Heart, lung, kidney and hypotension. Septic shock source most likely PNA. - ct. abx (3) NSTEMI (non-ST elevated myocardial infarction) Current Visit: Yes Status: Acute EKG depression V2-V5 anterolateral NSTEMI. Trops 3.93, 2.46, and 1.38. - echo: HFpEF 60-65% - continue ASA81, heparin drip - cardiology following. waiting for nephro clearance prior to cath'ing (4) Acute renal failure Current Visit: No Status: Inactive Cr currently 3.34, on admission >13. baseline Cr 082-1.22. Patient is cumulative +3L here and +2 L from [place]. - continue IVF - nephro following. Cardiology will cath once, receives renal clearance from nephro. Qualifiers: Acute renal failure type: unspecified Qualified Code(s): N17.9 - Acute kidney failure, unspecified (5) Acute hypercapnic respiratory failure Current Visit: Yes Status: Acute ABG 7.36 pCO2 56 pO2 72 HCO3 31. - extubated today. remains on NC O2 (6) Acute exacerbation of chronic obstructive airways disease Current Visit: No Status: Acute Patient in the last few weeks stopped his COPD treatments at home as they were no longer working for him. And last week, he stopped using his home oxygen. home O2 4L. - continue PPX abx - consider d/c methylprednisolone, and switching to 5 day prednisone if patient is able to tolerate - O2 goal 88-92% (7) Hyperkalemia Current Visit: Yes Status: Acute Cr 3.7 - hyperK resolved (8) Seizure disorder Current Visit: Yes Status: Acute currently stable on Keppra (9) Acute respiratory failure Current Visit: No Status: Inactive Patient currently stable and now extubated - continue breathing treatments, abx Qualifiers: Respiratory failure complication: hypercapnia Qualified Code(s): J96.02 - Acute respiratory failure with hypercapnia (10) 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, type II Current Visit: No Status: Acute elevated blood sugars yesterday was started on insulin drip. - if able to tolerate swallowing and diet is advanced. will change to SSI Qualifiers: 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 complication status: with circulatory complication 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 complication detail: with other circulatory complications 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 correction insulin use: with predatory animal exterminator use Qualified Code(s) : E11.59 - Type 2 diabetes mellitus with other circulatory complications; Z79.4 - exterminator termite (current) use of insulin; Z79.4 - exterminator termite (current) use of insulin ; Z79.4 - exterminator termite (current) use of insulin; Z79.4 - group home (current) use of insulin (11) Hepatitis C Current Visit: No Status: Acute according to , treated over 2 years ago without complication. denies patient is a current IVDU Qualifiers: Viral hepatitis chronicity: chronic Hepatic coma status: with hepatic coma Qualified Code(s): B18.2 - Chronic viral hepatitis C (12) Obesity (BMI 30-39.9) Current Visit: Yes Status: Acute BMI 32.4. (13) DVT prophylaxis Current Visit: Yes Status: Acute drip hep (14) Goals of care, counseling/discussion Current Visit: Yes Status: Acute Discussed with , patient's goals for therapy. She states he never had anything written down, but he wished to have everything done to keep him alive. She defaults as health proxy. Sheri Thompson [phone] (15) Elevated liver enzymes Current Visit: Yes Status: Acute AST and ALT in 300-400 range. Patient has a history of liver cirrhosis and hep C which was treated a couple years back according to patient. Patient's denies IVDU. - Ammona levels ordered - Lactulatose starting dose ordered. Subjective Principal diagnosis: septic shock Interval history: Mr Thompson is a 61 yo male day 2 of admission due to septic shock,NSTEMI, and CELINA. No events overnight. patient has been agitated and pulling at his ET. post- extubation patient was cooperative and following verbal commands. Objective PUL Vital signs: Last Vital Signs Temp 97.7 F 08/23/17 07:51 Pulse 92 08/23/17 07:10 Resp 16 08/23/17 07:30 BP 96/72 08/23/17 07:30 Pulse Ox 94 08/23/17 07:30 General appearance: no acute distress (post-extubation patient has been cooperative and responding appropriately to verbal commands) Eyes: nonicteric Neck: no JVD Effort: other Auscultation: right: wheezes (remains to have right sided wheezes that has decreased significantly since yesterday) Cardiovascular: regular rate and rhythm Gastrointestinal: hypoactive bowel sounds, soft Integumentary: normal, other (patient is non-jaundice appearing) Extremities: pulses normal (pulses equal and regular bilaterally radial, posterior tibial, and dorsalis pedis), edema (bilateral pitting edema Lower extremities 2/4), other (capillary refills bilateral index finger 1-2 seconds) pupils equal and round (unable to further evaluate neurological functions due to recent extubations.) mood appropriate Ventilator Settings Ventilator Settings: Ventilator Settings, Last 8 Hours Ventilator Mode CPAP Ventilator Mode VC+ Ventilator Mode VC+ Ventilator Mode VC+ Ventilator Mode VC+ Ventilator Mode VC+ Ventilator Mode VC+ Ventilator Mode VC+ Ventilator Mode VC+ Ventilator Mode VC+ Ventilator Tidal Volume 600 Setting Ventilator Tidal Volume 600 Setting Ventilator Tidal Volume 600 Setting Ventilator Tidal Volume 600 Setting Ventilator Tidal Volume 600 Setting Ventilator Tidal Volume 600 Setting Ventilator Tidal Volume 600 Setting Ventilator Tidal Volume 600 Setting Ventilator Tidal Volume 600 Setting Ventilator Respiratory Rate 16 Setting Ventilator Respiratory Rate 16 Setting Ventilator Respiratory Rate 16 Setting Ventilator Respiratory Rate 16 Setting Ventilator Respiratory Rate 16 Setting Ventilator Respiratory Rate 16 Setting Ventilator Respiratory Rate 16 Setting Ventilator Respiratory Rate 16 Setting Ventilator Respiratory Rate 16 Setting Actual Respiratory Rate 11 Actual Respiratory Rate 16 Actual Respiratory Rate 16 Actual Respiratory Rate 16 Actual Respiratory Rate 16 Actual Respiratory Rate 16 Actual Respiratory Rate 16 Actual Respiratory Rate 16 Actual Respiratory Rate 16 Positive End Expiratory 5 Pressure Positive End Expiratory 5 Pressure Positive End Expiratory 5 Pressure Positive End Expiratory 5 Pressure Positive End Expiratory 5 Pressure Positive End Expiratory 5 Pressure Positive End Expiratory 5 Pressure Positive End Expiratory 5 Pressure Positive End Expiratory 5 Pressure Positive End Expiratory 5 Pressure Peak Inspiratory Airway 15 Pressure Peak Inspiratory Airway 25 Pressure Peak Inspiratory Airway 27 Pressure Peak Inspiratory Airway 25 Pressure Peak Inspiratory Airway 26 Pressure Peak Inspiratory Airway 29 Pressure Peak Inspiratory Airway 28 Pressure Peak Inspiratory Airway 28 Pressure Peak Inspiratory Airway 28 Pressure Results - Laboratory Findings CBC and BMP: 08/23/17 04:00 08/23/17 04:00 ABG ABG pH 7.36 pH Units (7.32-7.45) 08/23/17 03:44 ABG pCO2 56 mmHg (35-45) H 08/23/17 03:44 ABG pO2 72 mmHg (85-104) L 08/23/17 03:44 ABG O2 Saturation 93 % (95-98) L 08/23/17 03:44 Abnormal lab findings: Abnormal lab results WBC 11.2 K/mcL (4.3-11.1) H 08/23/17 04:00 RBC 3.61 M/mcL (4.19-5.50) L 08/23/17 04:00 Hgb 10.7 g/dL (12.9-16.9) L 08/23/17 04:00 Hct 35.3 % (37.5-50.1) L 08/23/17 04:00 MCHC 30.3 g/dL (31.6-35.5) L 08/23/17 04:00 RDW 16.7 % (11.5-14.5) H 08/23/17 04:00 Plt Count 128 K/mcL (140-400) L 08/23/17 04:00 Neutrophils # 15.3 K/mcL (1.6-8.9) H 08/22/17 05:00 Nucleated RBCs/100 WBC 0.9 /100 WBC (0) H 08/22/17 05:00 Platelet Estimate Decreased (Normal) L 08/21/17 23:15 Polychromasia 1+ (Not Present) A 08/21/17 23:15 Hypochromasia Present (Not Present) A 08/21/17 23:15 Anisocytosis 1+ (Not Present) A 08/21/17 23:15 Macrocytosis Present (Not Present) A 08/21/17 23:15 APTT 57.3 Seconds (26.0-36.0) H 08/23/17 04:00 ABG pCO2 56 mmHg (35-45) H 08/23/17 03:44 ABG pO2 72 mmHg (85-104) L 08/23/17 03:44 ABG HCO3 31 mEq/L (21-27) H 08/23/17 03:44 ABG Total CO2 33 mEq/L (20-26) H 08/23/17 03:44 ABG O2 Saturation 93 % (95-98) L 08/23/17 03:44 ABG Base Excess 5 mEq/L (-2 to 3) H 08/23/17 03:44 BUN 94 mg/dL (8-26) H 08/23/17 04:00 Creatinine 3.34 mg/dL (0.72-1.25) H D 08/23/17 04:00 Est GFR ( Amer) 23 (> 60) L 08/23/17 04:00 Est GFR (Non-Af Amer) 19 (> 60) L 08/23/17 04:00 BUN/Creatinine Ratio 28 (6-26) H 08/23/17 04:00 Glucose 148 mg/dL (70-99) H 08/23/17 04:00 POC Glucose 163 (58-89) H 08/23/17 08:05 Hemoglobin A1c 6.5 % (-5.6) H 08/22/17 05:00 Calculated Osmolality 326 (280-300) H 08/23/17 04:00 Calcium 7.2 mg/dL (8.6-10.8) L 08/23/17 04:00 Phosphorus 10.7 mg/dL (2.3-4.7) H 08/21/17 22:15 Magnesium 2.8 mg/dL (1.6-2.6) H 08/21/17 22:15 AST 295 Units/L (5-34) H 08/22/17 05:00 ALT 393 Units/L (0-55) H 08/22/17 05:00 Troponin I 1.38 ng/mL (0-0.03) H* 08/22/17 17:00 Albumin 2.7 g/dL (3.5-5.0) L 08/22/17 05:00 Albumin/Globulin Ratio 0.8 (1.1-2.2) L 08/22/17 05:00 Urine Clarity Cloudy (Clear) A 08/22/17 08:30 Urine Protein 30 mg/dL (Neg-Trace) H 08/22/17 08:30 Urine Blood Moderate (Negative) H 08/22/17 08:30 Urine Microscopic WBC 5-15 per hpf (0-3) H 08/22/17 08:30 Ur Squamous Epith Cells Many per lpf (None-Few) H 08/22/17 08:30 Urine Opiates Screen Positive ng/mL (Baqvzw=920) H 08/22/17 02:15 U Benzodiazepines Scrn Positive ng/mL (Ltsduj=612) H 08/22/17 02:15 - Microbiology Findings Microbiology Findings: Microbiology, Last 48 Hours 08/22/17 03:23 Sputum Culture - Preliminary Sputum - Clinical Findings Intake & Output: Intake & Output 08/22/17 08/23/17 08/23/17 23:59 07:59 15:59 Intake Total 949.0 / 949.0 1057 / 1057 Output Total 550 / 550 1925 / 1925 Balance 399.0 / 399.0 -868 / -868 Weight 114.7 kg - VTE Reasons for not Prescribing Prophylaxis: Not indicated-Anticoagulated or INR therapeutic Consult Discharge Plan - Plan [facility]errals: [facility] [Primary Care Provider[facility] - <Vibha Fulton - Last Filed: 08/23/17 14:05> Date of Encounter: 08/23/17 Objective PUL Vital signs: Last Vital Signs Temp 99.2 F 08/23/17 11:37 Pulse 87 08/23/17 13:00 Resp 16 08/23/17 13:00 BP 111/56 08/23/17 13:00 Pulse Ox 93 08/23/17 13:00 Ventilator Settings Ventilator Settings: Ventilator Settings, Last 8 Hours Ventilator Mode CPAP Ventilator Mode CPAP Actual Respiratory Rate 11 Actual Respiratory Rate 11 Positive End Expiratory 5 Pressure Positive End Expiratory 5 Pressure Peak Inspiratory Airway 15 Pressure Peak Inspiratory Airway 15 Pressure Results - Laboratory Findings CBC and BMP: 08/23/17 04:00 08/23/17 04:00 ABG ABG pH 7.36 pH Units (7.32-7.45) 08/23/17 03:44 ABG pCO2 56 mmHg (35-45) H 08/23/17 03:44 ABG pO2 72 mmHg (85-104) L 08/23/17 03:44 ABG O2 Saturation 93 % (95-98) L 08/23/17 03:44 Abnormal lab findings: Abnormal lab results WBC 11.2 K/mcL (4.3-11.1) H 08/23/17 04:00 RBC 3.61 M/mcL (4.19-5.50) L 08/23/17 04:00 Hgb 10.7 g/dL (12.9-16.9) L 08/23/17 04:00 Hct 35.3 % (37.5-50.1) L 08/23/17 04:00 MCHC 30.3 g/dL (31.6-35.5) L 08/23/17 04:00 RDW 16.7 % (11.5-14.5) H 08/23/17 04:00 Plt Count 128 K/mcL (140-400) L 08/23/17 04:00 Neutrophils # 15.3 K/mcL (1.6-8.9) H 08/22/17 05:00 Nucleated RBCs/100 WBC 0.9 /100 WBC (0) H 08/22/17 05:00 Platelet Estimate Decreased (Normal) L 08/21/17 23:15 Polychromasia 1+ (Not Present) A 08/21/17 23:15 Hypochromasia Present (Not Present) A 08/21/17 23:15 Anisocytosis 1+ (Not Present) A 08/21/17 23:15 Macrocytosis Present (Not Present) A 08/21/17 23:15 APTT 85.8 Seconds (26.0-36.0) H 08/23/17 10:55 ABG pCO2 56 mmHg (35-45) H 08/23/17 03:44 ABG pO2 72 mmHg (85-104) L 08/23/17 03:44 ABG HCO3 31 mEq/L (21-27) H 08/23/17 03:44 ABG Total CO2 33 mEq/L (20-26) H 08/23/17 03:44 ABG O2 Saturation 93 % (95-98) L 08/23/17 03:44 ABG Base Excess 5 mEq/L (-2 to 3) H 08/23/17 03:44 BUN 94 mg/dL (8-26) H 08/23/17 04:00 Creatinine 3.34 mg/dL (0.72-1.25) H D 08/23/17 04:00 Est GFR ( Amer) 23 (> 60) L 08/23/17 04:00 Est GFR (Non-Af Amer) 19 (> 60) L 08/23/17 04:00 BUN/Creatinine Ratio 28 (6-26) H 08/23/17 04:00 Glucose 148 mg/dL (70-99) H 08/23/17 04:00 POC Glucose 133 (58-89) H 08/23/17 11:29 Hemoglobin A1c 6.5 % (-5.6) H 08/22/17 05:00 Calculated Osmolality 326 (280-300) H 08/23/17 04:00 Calcium 7.2 mg/dL (8.6-10.8) L 08/23/17 04:00 Phosphorus 10.7 mg/dL (2.3-4.7) H 08/21/17 22:15 Magnesium 2.8 mg/dL (1.6-2.6) H 08/21/17 22:15 AST 295 Units/L (5-34) H 08/22/17 05:00 ALT 393 Units/L (0-55) H 08/22/17 05:00 Troponin I 1.38 ng/mL (0-0.03) H* 08/22/17 17:00 Albumin 2.7 g/dL (3.5-5.0) L 08/22/17 05:00 Albumin/Globulin Ratio 0.8 (1.1-2.2) L 08/22/17 05:00 Urine Clarity Cloudy (Clear) A 08/22/17 08:30 Urine Protein 30 mg/dL (Neg-Trace) H 08/22/17 08:30 Urine Blood Moderate (Negative) H 08/22/17 08:30 Urine Microscopic WBC 5-15 per hpf (0-3) H 08/22/17 08:30 Ur Squamous Epith Cells Many per lpf (None-Few) H 08/22/17 08:30 Urine Opiates Screen Positive ng/mL (Kntehc=802) H 08/22/17 02:15 U Benzodiazepines Scrn Positive ng/mL (Bzlipw=901) H 08/22/17 02:15 - Microbiology Findings Microbiology Findings: Microbiology, Last 48 Hours 08/22/17 03:23 Sputum Culture - Preliminary Sputum Gram Negative Gurmeet - Clinical Findings Intake & Output: Intake & Output 08/22/17 08/23/17 08/23/17 23:59 07:59 15:59 Intake Total 1949.0 / 1949.0 1063 / 1063 111 / 111 Output Total 550 / 550 1925 / 192 400 / 400 Balance 1399.0 / 1399.0 -862 / -862 -289 / -289 Weight 114.7 kg - Attending Attestation I examined this patient and my medical decision-making was reviewed with the Resident Physician. I agree with the documented findings, disposition and treatment plan as described except to the extent set forth below. Patient seen and examined. Labs, radiology, chart personally reviewed. Agree with resident's history and physical, assessment, plan with following comments: NURSE CARE MANAGER: Patient follows commands, however still have agitation but more relaxed on Precedex. Pulmonary: Acceptable oxygenation and ventilation. Patient had spontaneous breathing trial and subsequently was extubated. Continue bronchodilators Cardiovascular: Patient on vasopressors which subsequently weaned off successfully after weaning cough sedation and then extubated. Due to the agitation and sepsis he is at risk his airway could be compromised and for that reason he needs to stay in ICU for close monitoring. GI: Nutrition per dietary and GI prophylaxis per routine Heme: DVT prophylaxis per routine ID: Continue antibiotics and plan to de-escalation Renal; urine out put and renal funtion reviewed Endorcine: blood glucose is monitored. Insulin drip. Lines: all lines checked and no evidence of infections Skin: skin care to prevent pressure ulcers per nursing routine care I spent 32 min of Critical Care time with this patient. It involved decision making of high complexity to assess, manipulate, and support vital organ system failure and/or to prevent further life threatening deterioration of the patient' s condition. The time involved in the performance of separately reportable procedures was not counted toward critical care time.
[2017-08-23] MEDS ORDERED: ARIPiprazole 5 MG TABLET PO SCH (10:45)
[2017-08-23] MEDS ORDERED: Haloperidol Lactate 5 MG/ML VIAL IVP ONE ×2 (11:20→15:54)
[2017-08-23] MEDS ORDERED: Dexmedetomidine HCl 400 MCG/100 ML MLS IVC ONE (11:39)
[2017-08-23] MEDS: Dexmedetomidine HCl 400 MCG/100 ML MLS IVC SCH ×2 (11:50→14:31)
[2017-08-23] MEDS: Insulin LISPRO 300 UNITS/3 ML VIAL SQ SCH ×2 (11:52→16:02)
[2017-08-23] MEDS: Insulin DETEMIR 100 UNIT/ML X5UNITS SQ SCH ×2 (11:52→21:25)
[2017-08-23] MEDS ORDERED: Haloperidol Lactate 5 MG/ML VIAL ONE (15:51)
[2017-08-23] MEDS: Heparin 25,000 UNIT/500 ML D5W 25,000 UNIT/500 ML MLS IVC SCH (16:45)
--- NOTE | 2017-08-23 16:59 | Procedure Note ---
<Sherman Walton - Last Filed: 08/23/17 16:56> Date of procedure: 08/23/17 Pre-op diagnosis: respiratory failure Post-op diagnosis: same Procedure: A time-out was completed verifying correct patient, procedure, site, positioning , and special equipment if applicable. The patient was placed in a flat position. Sedation was obtained using 10cc Propofol. Ventilation was difficult with the ambu bag. The CMAC was used and inserted into the oropharynx at which time there was a Grade 1 view of the vocal cords. A 7.5-[place] endotracheal tube was inserted and visualized going through the vocal cords. The stylette was removed. Colorimetric change was visualized on the CO2 meter. Breath sounds were heard in both lung villasenor equally. The endotracheal tube was placed at 23 cm, measured at the teeth. Attending, Dr. Fulton, was present for the entire procedure. A chest x-ray was ordered to assess for pneumothorax and verify endotracheal tube placement. Surgeon: Vibha Fulton Estimated blood loss (cc): 0 IV fluids (cc): 0 Urine output (cc): 0 Pathology: none sent Condition: critical Disposition: ICU <Vibha Fulton - Last Filed: 08/23/17 17:16> Procedure: His condition was deteriorating with hypoxia and agitation and decision was made to reintubate the patient. Please see above
[2017-08-23] MEDS ORDERED: Lactulose Oral Soln 20 GM/30 ML UDC PO SCH (21:00)
[2017-08-23] MEDS ORDERED: Insulin LISPRO 300 UNITS/3 ML VIAL SQ SCH (21:00)
[2017-08-24] MEDS: FentaNYL (PF) 3,000 MCG in 0.9 % Sodium Chloride 240 ML IVC SCH ×2 (01:06→18:12)
[2017-08-24] MEDS: Lacri-Lube 3.5 GM TUBE BOTH EYES SCH ×5 (01:26→20:40)
[2017-08-24] MEDS: Norepinephrine 4 MG in D5% in Water 250 ML IVC SCH (01:28)
[2017-08-24] MEDS: Azithromycin 500 MG in D5% in Water 250 ML IVPB SCH (01:31)
[2017-08-24] MEDS: MethylPREDNISolone 40 MG/ML VIAL IVP SCH ×3 (01:31→18:11)
[2017-08-24 02:30] LABS: Mean Corpuscular Volume 99.4 fL (83.0-100.0)
[2017-08-24 02:32] LABS: Hematocrit 33.3 % (37.5-50.1); Immature Platelets 5.3 % (1.1-6.1); Mean Corpuscular Hemoglobin 29.9 pg (28.0-33.3); Mean Platelet Volume 10.9 fL (9.4-12.4); Red Blood Count 3.35 M/mcL (4.19-5.50); Red Cell Distribution Width 16.3 % (11.5-14.5)
[2017-08-24 02:42] LABS: Calcium 7.7 mg/dL (8.6-10.8); Potassium 4.5 mEq/L (3.5-4.5)
[2017-08-24] MEDS: Ipratropium/Albuterol Neb 3 ML IH SCH ×6 (03:28→23:13)
[2017-08-24] MEDS ORDERED: Lacri-Lube 3.5 GM TUBE BOTH EYES PRN (08:25)
[2017-08-24] MEDS: Pantoprazole 40 MG VIAL IVP SCH (08:37)
[2017-08-24] MEDS: levETIRAcetam 250 MG TABLET PO SCH ×2 (08:37→20:36)
[2017-08-24] MEDS: Aspirin 81 MG TAB.CHEW PO SCH (08:37)
[2017-08-24] MEDS: Chlorhexidine Rinse 15 ML MOUTHWASH MM SCH ×2 (08:37→20:34)
[2017-08-24] MEDS: Insulin DETEMIR 100 UNIT/ML X5UNITS SQ SCH ×2 (08:39→20:38)
--- NOTE | 2017-08-24 09:22 | Pulmonology Progress Note ---
<Edilberto Higuera - Last Filed: 08/24/17 09:33> Date of Encounter: 08/24/17 Time of Encounter: 09:21 Assessment and Plan (1) Septic shock Current Visit: Yes Status: Acute Source most likely from PNA. CXR showed RLL infiltartes/effusion. HR has been well controlled, and MAP >65. - reintubated last night - MAP 71 today, goal >65. on 3 levophed - abx: day 3 of azithromycin + ceftriaxone - patient given olanzepine and haldol PRN to reduce agitation (2) NSTEMI (non-ST elevated myocardial infarction) Current Visit: Yes Status: Acute EKG depression V2-V5 anterolateral NSTEMI. Trops 3.93, 2.46, and 1.38. - echo: HFpEF 60-65% - continue ASA81 - per recommendation of cardio, D/C heparin - cardiology following. waiting for nephro clearance prior to cath'ing and patient to stablize (3) Sepsis with multi-organ dysfunction Current Visit: Yes Status: Acute Involvement includes Heart, lung, kidney and hypotension. Septic shock source most likely PNA. - ct. abx - Cr 1.76 today - nephro following for cath clearance (4) Acute hypercapnic respiratory failure Current Visit: Yes Status: Acute ABG - pending - reintubated (5) Acute exacerbation of chronic obstructive airways disease Current Visit: No Status: Acute Patient in the last few weeks stopped his COPD treatments at home as they were no longer working for him. And last week, he stopped using his home oxygen. home O2 4L. - continue PPX abx - due to reintubatino patient restarted on methylprednisolone - O2 goal 88-92% (6) Hyperkalemia Current Visit: Yes Status: Acute hyperK resolved (7) Seizure disorder Current Visit: Yes Status: Acute currently stable on Keppra (8) 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, type II Current Visit: No Status: Acute elevated blood sugars yesterday was started on insulin drip. - restarted on medium SSI due to reintubation (9) Hepatitis C Current Visit: No Status: Acute according to , treated over 2 years ago without complication. denies patient is a current IVDU (10) Obesity (BMI 30-39.9) Current Visit: Yes Status: Acute BMI 32.4. (11) DVT prophylaxis Current Visit: Yes Status: Acute D/C'ed heparin - started on intermittent pneumatic compression (12) Goals of care, counseling/discussion Current Visit: Yes Status: Acute Discussed with , patient's goals for therapy. She states he never had anything written down, but he wished to have everything done to keep him alive. She defaults as health proxy. Sheri Thompson [phone] (13) Elevated liver enzymes Current Visit: Yes Status: Acute AST and ALT in 300-400 range. Patient has a history of liver cirrhosis and hep C which was treated a couple years back according to patient. Patient's denies IVDU. - Ammona levels ordered - Lactulatose starting dose ordered. Subjective Principal diagnosis: NSTEMI Interval history: Mr Thompson is a 61 yo male day 2 of admission due to septic shock, NSTEMI, and CELINA. Last night patient was agitated and given haldol but quickly became agitated again. Patient was reintubated. Objective PUL Vital signs: Last Vital Signs Temp 97.5 F L 08/24/17 08:00 Pulse 76 08/24/17 08:00 Resp 16 08/24/17 08:27 BP 127/62 08/24/17 08:27 Pulse Ox 94 08/24/17 08:27 General appearance: asleep Eyes: nonicteric Effort: other (mechanical ventilation) Auscultation: bilateral: clear Cardiovascular: regular rate and rhythm Gastrointestinal: hypoactive bowel sounds, other (distended but reduced from yesterday) Integumentary: normal Extremities: no cyanosis, pulses normal, other (patients has bruising on wrists around restraints) Musculoskeletal: no deformities unable to assess due to mental status Ventilator Settings Ventilator Settings: Ventilator Settings, Last 8 Hours Ventilator Mode VC+ Ventilator Mode VC+ Ventilator Mode VC+ Ventilator Mode VC+ Ventilator Mode VC+ Ventilator Mode VC+ Ventilator Mode VC+ Ventilator Mode VC+ Ventilator Mode VC+ Ventilator Tidal Volume 600 Setting Ventilator Tidal Volume 600 Setting Ventilator Tidal Volume 600 Setting Ventilator Tidal Volume 600 Setting Ventilator Tidal Volume 600 Setting Ventilator Tidal Volume 600 Setting Ventilator Tidal Volume 600 Setting Ventilator Tidal Volume 600 Setting Ventilator Tidal Volume 600 Setting Ventilator Respiratory Rate 16 Setting Ventilator Respiratory Rate 16 Setting Ventilator Respiratory Rate 16 Setting Ventilator Respiratory Rate 16 Setting Ventilator Respiratory Rate 16 Setting Ventilator Respiratory Rate 16 Setting Ventilator Respiratory Rate 16 Setting Ventilator Respiratory Rate 16 Setting Ventilator Respiratory Rate 16 Setting Actual Respiratory Rate 16 Actual Respiratory Rate 16 Actual Respiratory Rate 16 Actual Respiratory Rate 20 Actual Respiratory Rate 16 Actual Respiratory Rate 16 Actual Respiratory Rate 16 Actual Respiratory Rate 16 Actual Respiratory Rate 16 Positive End Expiratory 5 Pressure Positive End Expiratory 5 Pressure Positive End Expiratory 5 Pressure Positive End Expiratory 5 Pressure Positive End Expiratory 5 Pressure Positive End Expiratory 5 Pressure Positive End Expiratory 5 Pressure Positive End Expiratory 5 Pressure Positive End Expiratory 5 Pressure Peak Inspiratory Airway 31 Pressure Peak Inspiratory Airway 29 Pressure Peak Inspiratory Airway 27 Pressure Peak Inspiratory Airway 30 Pressure Peak Inspiratory Airway 30 Pressure Peak Inspiratory Airway 29 Pressure Peak Inspiratory Airway 29 Pressure Peak Inspiratory Airway 25 Pressure Peak Inspiratory Airway 28 Pressure Results - Laboratory Findings CBC and BMP: 08/24/17 02:21 08/24/17 02:21 ABG ABG pH 7.36 pH Units (7.32-7.45) 08/23/17 03:44 ABG pCO2 56 mmHg (35-45) H 08/23/17 03:44 ABG pO2 72 mmHg (85-104) L 08/23/17 03:44 ABG O2 Saturation 93 % (95-98) L 08/23/17 03:44 Abnormal lab findings: Abnormal lab results RBC 3.35 M/mcL (4.19-5.50) L 08/24/17 02:21 Hgb 10.0 g/dL (12.9-16.9) L 08/24/17 02:21 Hct 33.3 % (37.5-50.1) L 08/24/17 02:21 MCHC 30.0 g/dL (31.6-35.5) L 08/24/17 02:21 RDW 16.3 % (11.5-14.5) H 08/24/17 02:21 Plt Count 107 K/mcL (140-400) L 08/24/17 02:21 Neutrophils # 15.3 K/mcL (1.6-8.9) H 08/22/17 05:00 Nucleated RBCs/100 WBC 0.9 /100 WBC (0) H 08/22/17 05:00 Platelet Estimate Decreased (Normal) L 08/21/17 23:15 Polychromasia 1+ (Not Present) A 08/21/17 23:15 Hypochromasia Present (Not Present) A 08/21/17 23:15 Anisocytosis 1+ (Not Present) A 08/21/17 23:15 Macrocytosis Present (Not Present) A 08/21/17 23:15 APTT 105.1 Seconds (26.0-36.0) H 08/24/17 02:21 ABG pCO2 56 mmHg (35-45) H 08/23/17 03:44 ABG pO2 72 mmHg (85-104) L 08/23/17 03:44 ABG HCO3 31 mEq/L (21-27) H 08/23/17 03:44 ABG Total CO2 33 mEq/L (20-26) H 08/23/17 03:44 ABG O2 Saturation 93 % (95-98) L 08/23/17 03:44 ABG Base Excess 5 mEq/L (-2 to 3) H 08/23/17 03:44 Carbon Dioxide 30 mEq/L (19-29) H 08/24/17 02:21 BUN 85 mg/dL (8-26) H 08/24/17 02:21 Creatinine 1.76 mg/dL (0.72-1.25) H 08/24/17 02:21 Est GFR ( Amer) 48 (> 60) L 08/24/17 02:21 Est GFR (Non-Af Amer) 39 (> 60) L 08/24/17 02:21 BUN/Creatinine Ratio 48 (6-26) H 08/24/17 02:21 Glucose 288 mg/dL (70-99) H 08/24/17 02:21 POC Glucose 283 (58-89) H 08/24/17 07:24 Hemoglobin A1c 6.5 % (-5.6) H 08/22/17 05:00 Calculated Osmolality 332 (280-300) H 08/24/17 02:21 Calcium 7.7 mg/dL (8.6-10.8) L 08/24/17 02:21 Phosphorus 10.7 mg/dL (2.3-4.7) H 08/21/17 22:15 Magnesium 2.8 mg/dL (1.6-2.6) H 08/21/17 22:15 AST 295 Units/L (5-34) H 08/22/17 05:00 ALT 393 Units/L (0-55) H 08/22/17 05:00 Troponin I 1.38 ng/mL (0-0.03) H* 08/22/17 17:00 Albumin 2.7 g/dL (3.5-5.0) L 08/22/17 05:00 Albumin/Globulin Ratio 0.8 (1.1-2.2) L 08/22/17 05:00 Urine Clarity Cloudy (Clear) A 08/22/17 08:30 Urine Protein 30 mg/dL (Neg-Trace) H 08/22/17 08:30 Urine Blood Moderate (Negative) H 08/22/17 08:30 Urine Microscopic WBC 5-15 per hpf (0-3) H 08/22/17 08:30 Ur Squamous Epith Cells Many per lpf (None-Few) H 08/22/17 08:30 Urine Opiates Screen Positive ng/mL (Vuzvhx=185) H 08/22/17 02:15 U Benzodiazepines Scrn Positive ng/mL (Xowupf=022) H 08/22/17 02:15 - Microbiology Findings Microbiology Findings: Microbiology, Last 48 Hours 08/22/17 03:23 Sputum Culture - Final Sputum Stenotrophomonas maltophilia - Clinical Findings Intake & Output: Intake & Output 08/23/17 08/24/17 08/24/17 23:59 07:59 15:59 Intake Total 557 / 557 1031 / 1031 Output Total 500 / 500 1050 / 1050 Balance 57 / 57 -19 / -19 Weight 116 kg - VTE Reasons for not Prescribing Prophylaxis: Not indicated-Anticoagulated or INR therapeutic Consult Discharge Plan - Plan [facility]errals: [facility]Primary Care Provider[facility] - <Vibha Fulton - Last Filed: 08/24/17 13:33> Date of Encounter: 08/24/17 Objective PUL Vital signs: Last Vital Signs Temp 97.6 F 08/24/17 12:10 Pulse 114 08/24/17 11:45 Resp 17 08/24/17 11:14 BP 107/71 08/24/17 11:14 Pulse Ox 94 08/24/17 11:14 Ventilator Settings Ventilator Settings: Ventilator Settings, Last 8 Hours Ventilator Mode VC+ Ventilator Mode VC+ Ventilator Mode VC+ Ventilator Mode VC+ Ventilator Mode VC+ Ventilator Mode VC+ Ventilator Mode VC+ Ventilator Tidal Volume 600 Setting Ventilator Tidal Volume 600 Setting Ventilator Tidal Volume 600 Setting Ventilator Tidal Volume 600 Setting Ventilator Tidal Volume 600 Setting Ventilator Tidal Volume 600 Setting Ventilator Tidal Volume 600 Setting Ventilator Respiratory Rate 16 Setting Ventilator Respiratory Rate 16 Setting Ventilator Respiratory Rate 16 Setting Ventilator Respiratory Rate 16 Setting Ventilator Respiratory Rate 16 Setting Ventilator Respiratory Rate 16 Setting Ventilator Respiratory Rate 16 Setting Actual Respiratory Rate 17 Actual Respiratory Rate 16 Actual Respiratory Rate 16 Actual Respiratory Rate 16 Actual Respiratory Rate 16 Actual Respiratory Rate 20 Positive End Expiratory 5 Pressure Positive End Expiratory 5 Pressure Positive End Expiratory 5 Pressure Positive End Expiratory 5 Pressure Positive End Expiratory 5 Pressure Positive End Expiratory 5 Pressure Positive End Expiratory 5 Pressure Peak Inspiratory Airway 27 Pressure Peak Inspiratory Airway 28 Pressure Peak Inspiratory Airway 31 Pressure Peak Inspiratory Airway 29 Pressure Peak Inspiratory Airway 27 Pressure Peak Inspiratory Airway 30 Pressure Results - Laboratory Findings CBC and BMP: 08/24/17 02:21 08/24/17 02:21 ABG ABG pH 7.37 pH Units (7.32-7.45) 08/24/17 10:03 ABG pCO2 53 mmHg (35-45) H 08/24/17 10:03 ABG pO2 69 mmHg (85-104) L 08/24/17 10:03 ABG O2 Saturation 93 % (95-98) L 08/24/17 10:03 Abnormal lab findings: Abnormal lab results RBC 3.35 M/mcL (4.19-5.50) L 08/24/17 02:21 Hgb 10.0 g/dL (12.9-16.9) L 08/24/17 02:21 Hct 33.3 % (37.5-50.1) L 08/24/17 02:21 MCHC 30.0 g/dL (31.6-35.5) L 08/24/17 02:21 RDW 16.3 % (11.5-14.5) H 08/24/17 02:21 Plt Count 107 K/mcL (140-400) L 08/24/17 02:21 Neutrophils # 15.3 K/mcL (1.6-8.9) H 08/22/17 05:00 Nucleated RBCs/100 WBC 0.9 /100 WBC (0) H 08/22/17 05:00 Platelet Estimate Decreased (Normal) L 08/21/17 23:15 Polychromasia 1+ (Not Present) A 08/21/17 23:15 Hypochromasia Present (Not Present) A 08/21/17 23:15 Anisocytosis 1+ (Not Present) A 08/21/17 23:15 Macrocytosis Present (Not Present) A 08/21/17 23:15 APTT 105.1 Seconds (26.0-36.0) H 08/24/17 02:21 ABG pCO2 53 mmHg (35-45) H 08/24/17 10:03 ABG pO2 69 mmHg (85-104) L 08/24/17 10:03 ABG HCO3 31 mEq/L (21-27) H 08/24/17 10:03 ABG Total CO2 32 mEq/L (20-26) H 08/24/17 10:03 ABG O2 Saturation 93 % (95-98) L 08/24/17 10:03 ABG Base Excess 5 mEq/L (-2 to 3) H 08/24/17 10:03 Carbon Dioxide 30 mEq/L (19-29) H 08/24/17 02:21 BUN 85 mg/dL (8-26) H 08/24/17 02:21 Creatinine 1.76 mg/dL (0.72-1.25) H 08/24/17 02:21 Est GFR ( Amer) 48 (> 60) L 08/24/17 02:21 Est GFR (Non-Af Amer) 39 (> 60) L 08/24/17 02:21 BUN/Creatinine Ratio 48 (6-26) H 08/24/17 02:21 Glucose 288 mg/dL (70-99) H 08/24/17 02:21 POC Glucose 254 (58-89) H 08/24/17 11:10 Hemoglobin A1c 6.5 % (-5.6) H 08/22/17 05:00 Calculated Osmolality 332 (280-300) H 08/24/17 02:21 Calcium 7.7 mg/dL (8.6-10.8) L 08/24/17 02:21 Phosphorus 10.7 mg/dL (2.3-4.7) H 08/21/17 22:15 Magnesium 2.8 mg/dL (1.6-2.6) H 08/21/17 22:15 AST 295 Units/L (5-34) H 08/22/17 05:00 ALT 393 Units/L (0-55) H 08/22/17 05:00 Troponin I 1.38 ng/mL (0-0.03) H* 08/22/17 17:00 Albumin 2.7 g/dL (3.5-5.0) L 08/22/17 05:00 Albumin/Globulin Ratio 0.8 (1.1-2.2) L 08/22/17 05:00 Urine Clarity Cloudy (Clear) A 08/22/17 08:30 Urine Protein 30 mg/dL (Neg-Trace) H 08/22/17 08:30 Urine Blood Moderate (Negative) H 08/22/17 08:30 Urine Microscopic WBC 5-15 per hpf (0-3) H 08/22/17 08:30 Ur Squamous Epith Cells Many per lpf (None-Few) H 08/22/17 08:30 Urine Opiates Screen Positive ng/mL (Dawtma=072) H 08/22/17 02:15 U Benzodiazepines Scrn Positive ng/mL (Ggzaxh=340) H 08/22/17 02:15 - Microbiology Findings Microbiology Findings: Microbiology, Last 48 Hours 08/22/17 03:23 Sputum Culture - Final Sputum Stenotrophomonas maltophilia - Clinical Findings Intake & Output: Intake & Output 08/23/17 08/24/17 08/24/17 23:59 07:59 15:59 Intake Total 557 / 557 1281 / 1281 300 / 300 Output Total 500 / 500 1050 / 1050 450 / 450 Balance 57 / 57 231 / 231 -150 / -150 Weight 116 kg - Attending Attestation I examined this patient and my medical decision-making was reviewed with the Resident Physician. I agree with the documented findings, disposition and treatment plan as described except to the extent set forth below. Patient seen and examined. Labs, radiology, chart personally reviewed. 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 We will add antipsychotic medication via OG every which hopefully to help. Will consider also CT head if no improvement. Pulmonary: Acceptable oxygenation and ventilation. There is no plan for extubation. I will wean off FiO2 on the ventilator to keep SPO2 around 90%. Cardiovascular: Overall no significant changes and discussed with manager language and we both agreed when he is more stable then to consider cardiac catheterization. GI: Nutrition per dietary and GI prophylaxis per routine Heme: DVT prophylaxis per routine ID: Continue antibiotics and plan to de-escalation Renal; urine out put and renal funtion reviewed Endorcine: blood glucose is monitored Lines: all lines checked and no evidence of infections Skin: skin care to prevent pressure ulcers per nursing routine care Overall has been very difficult to manage mainly due to his agitation and that can complicate with prolonged mechanical invasive ventilation. I spent 32 min of Critical Care time with this patient. It involved decision making of high complexity to assess, manipulate, and support vital organ system failure and/or to prevent further life threatening deterioration of the patient' s condition. The time involved in the performance of separately reportable procedures was not counted toward critical care time.
--- NOTE | 2017-08-24 09:39 | Cardiology Progress Note ---
<Randy Chirinos - Last Filed: 08/24/17 11:33> Date of Encounter: 08/24/17 Time of Encounter: 08:50 Assessment and Plan (1) NSTEMI (non-ST elevated myocardial infarction) Current Visit: Yes Status: Acute Patient is a 61 yo male with PMHx of non-compliant COPD, type 2 diabetes, tobacco use, CHF, hepatitis C who presents altered, dypsneic, and in septic shock. EKG was independently read and demonstrates ST depressions on Leads V3, V4, V5 when compared to Mar, 2017. Troponins are downtrending 1.38< 2.46<3.93<4.69. Limited Echo demonstrates EF 60-65% with dilated and hypokinetic right ventricle, atypical septal wall motion. Patient has multiple risk factors for CAD(male, uncontrolled type 2 diabetes, history of smoking, HTN , hyperlipedemia). The patient was re-intubated last night due to agitation and is well sedated this morning. We recommend [facility] when patient is more alert and can provide consent. He has been non-compliant with home mediations and we would like to make sure that he will be compliant with anticoagulation at home. We will continue to follow-up on mental status improvement to obtain consent for catheterization. (2) Septic shock Current Visit: Yes Status: Acute The patient presented with clinical picture of septic shock with leukocytosis, tachycardia, tachypnea, and hypotensive. He was agitation post-extubation yesterday and had to be re-intubated. His vitals are stable on vasopressors and sedation. White blood cell count continues to improve. Wean vasopressors and sedation as appropriate. Continue antibiotics, IVF. Pressor support as needed. Manage per ICU. (3) Acute kidney failure, unspecified Current Visit: Yes Status: Acute Patient has clinical picture of acute kidney injury in the setting of septic shock, respiratory failure, and NSTEMI. Kidney function has markedly improved. Continue to monitor kidney function and HD as needed. We will follow nephrology recommendations closely with plan for [facility]. Qualifiers: Acute renal failure type: unspecified Qualified Code(s): N17.9 - Acute kidney failure, unspecified (4) Acute hypercapnic respiratory failure Current Visit: Yes Status: Acute The patient had to be re-intubated due to agitation. Vital signs are currently stable on vasopressors. Continue steroids, Duonebs, Rocephin, Azithromycin, and Zyvox. CXR reveals increased dependent right basilar opacification and effusion. Satisfactory position of endotracheal tube. Manage per ICU. (5) 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, type II Current Visit: No Status: Acute HbA1c = 6.5. Hyperglycemia in the setting of history of uncontrolled diabetes mellitus type II. SSI for hyperglycemic control during inpatient admission. Continue to monitor with POC glucose and a.m. labs. 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 Continue to monitor with a.m. labs. (7) Hepatitis C Current Visit: No Status: Acute Patient has history of hepatitis C. LFTs are elevated. Avoid hepatotoxins if possible. Continue to monitor with a.m. labs. Qualifiers: Viral hepatitis chronicity: chronic Hepatic coma status: with hepatic coma Qualified Code(s): B18.2 - Chronic viral hepatitis C (8) DVT prophylaxis Current Visit: Yes Status: Acute Heparin is discontinued and patient is started on intermittent pneumatic compression. Discussion w patient/family: The assessment and plan as outlined above was discussed with the patient and/or family members who expressed understanding and agreement. All questions were answered. Thank you for involving us in the care of your patient. Please call with any questions. Subjective Principal diagnosis: NSTEMI Interval history: The patient has been agitated since extubation. High dose of sedation was needed for his agitation and he was eventually reintubated. He is currently well sedated and I was unable to obtain subjective findings. Per nurse, no further acute events at night. Objective Vital Signs, Last 4 Hours Temp Pulse Resp BP Pulse Ox 08/24/17 08:27 16 127/62 94 08/24/17 08:00 97.5 F L 76 16 127/62 94 08/24/17 07:58 97.5 F L 08/24/17 07:40 89 08/24/17 07:00 89 16 109/52 94 08/24/17 06:44 16 112/57 95 08/24/17 06:00 97.6 F 100 20 121/76 95 General: Other (currently intubated ) HEENT: Atraumatic, Normocephaly, Mucus Membranes Moist Neck: No JVD, Normal carotid pulses Cardiac: Reg Rate and Rhythm, Normal S1 and S2, No Murmur Lungs: Normal Breath Sounds, No Wheeze, Rales, Rhonchi Neuro: Other (unable to obtain because patient is intubated and sedated) Abdomen: Soft Skin: No rashes noted on visualized skin Musculoskeletal: No Chest Wall Tenderness Extremities: No Clubbing, No Cyanosis, Normal Pulses, Other (bilateral lower extremity edema 2+ ) Results 08/24/17 02:21 08/24/17 02:21 Lab Results 08/23/17 08/23/17 08/24/17 10:55 17:15 02:21 WBC 7.5 Hgb 10.0 L Hct 33.3 L Plt Count 107 L APTT 85.8 H 79.1 H Sodium Potassium Chloride Carbon Dioxide BUN Creatinine Glucose Calcium 08/24/17 08/24/17 02:21 02:21 WBC Hgb Hct Plt Count APTT 105.1 H Sodium 143 Potassium 4.5 Chloride 105 Carbon Dioxide 30 H BUN 85 H Creatinine 1.76 H Glucose 288 H Calcium 7.7 L - VTE Reasons for not Prescribing Prophylaxis: Not indicated-Anticoagulated or INR therapeutic Consult Discharge Plan - Plan [facility]errals: [facility] [Primary Care Provider] - <Celeste Wu - Last Filed: 08/24/17 17:53> Date of Encounter: 08/24/17 Assessment and Plan Discussion w patient/family: I examined this patient and my medical decision-making was reviewed with the Resident Physician. I agree with the documented findings, disposition and treatment plan. Mr. Thompson was re-intubated overnight due to agitation. Despite sedation, he continues to be agitated. Vital signs reviewed. Agree with exam findings documented. Impression: 1. NSTEMI: Would recommend considering LHC before discharge. However, since there is concern about compliance, recommend waiting until the patient is stable and able to converse and consent for the procedure. He would need to comply with DAPT for a certain uninterrupted duration after PCI if done. Presently, he is agitated and would not be able to cooperate with cath. Heparin gtt has been stopped at this time. Continue aspirin. Unable to give statin due to elevated LFTs. We will sign off at this time. Please re-consult when patient is stabilized. Recommendations were discussed with ICU Apartment Rental Agent. Objective Vital Signs, Last 4 Hours Temp Pulse Resp BP Pulse Ox 08/24/17 16:40 16 102/50 96 08/24/17 16:01 67 08/24/17 16:00 112 21 133/68 98 08/24/17 15:43 67 08/24/17 15:17 17 103/54 100 08/24/17 15:00 97.7 F 67 19 103/54 100 08/24/17 14:09 106 16 108/92 98 08/24/17 14:00 93 16 108/92 98 Results 08/24/17 02:21 08/24/17 02:21 Lab Results 08/23/17 08/24/17 08/24/17 17:15 02:21 02:21 WBC 7.5 Hgb 10.0 L Hct 33.3 L Plt Count 107 L APTT 79.1 H Sodium 143 Potassium 4.5 Chloride 105 Carbon Dioxide 30 H BUN 85 H Creatinine 1.76 H Glucose 288 H Calcium 7.7 L 08/24/17 02:21 WBC Hgb Hct Plt Count APTT 105.1 H Sodium Potassium Chloride Carbon Dioxide BUN Creatinine Glucose Calcium
[2017-08-24 10:08] LABS: ABG Base Excess 5 mEq/L (-2 to 3); ABG HCO3 31 mEq/L (21-27); ABG Oxygen Saturation 93 % (95-98); ABG PCO2 53 mmHg (35-45); ABG PH 7.37 pH Units (7.32-7.45); ABG PO2 69 mmHg (85-104); ABG TCO2 32 mEq/L (20-26); Blood Gas Modality ASSIST CONTROL; Blood Gas PEEP 5 cm H2O; Blood Gas Respiration Rate 16; Blood Gas VT 600 cc
[2017-08-24] MEDS: OLANZapine 5 MG TAB.RAPDIS PO SCH (10:26)
[2017-08-24] MEDS: Insulin LISPRO 300 UNITS/3 ML VIAL SQ SCH ×3 (11:33→20:40)
[2017-08-24] MEDS: Sulfamethoxazole/Trimeth Oral Soln 400-80mg/10 ML UDC PO SCH ×2 (15:50→20:34)
[2017-08-24] MEDS: *HR* Heparin 5,000 UNIT/ML VIAL SQ SCH (18:11)
[2017-08-24] MEDS: Dexmedetomidine HCl 400 MCG/100 ML MLS IVC SCH (23:50)
[2017-08-25] MEDS: Insulin LISPRO 300 UNITS/3 ML VIAL SQ SCH ×7 (00:02→23:05)
[2017-08-25] MEDS: Lacri-Lube 3.5 GM TUBE BOTH EYES SCH ×7 (00:02→21:01)
[2017-08-25] MEDS: Ipratropium/Albuterol Neb 3 ML IH SCH ×6 (03:22→23:00)
[2017-08-25 04:03] LABS: Hematocrit 34.6 % (37.5-50.1); Hemoglobin 10.3 g/dL (12.9-16.9); Mean Corpuscular HGB Conc 29.8 g/dL (31.6-35.5); Mean Corpuscular Hemoglobin 29.3 pg (28.0-33.3); Mean Corpuscular Volume 98.3 fL (83.0-100.0); Mean Platelet Volume 10.7 fL (9.4-12.4); Platelet Count 101 K/mcL (140-400); Red Blood Count 3.52 M/mcL (4.19-5.50); Red Cell Distribution Width 16.1 % (11.5-14.5)
[2017-08-25 04:24] LABS: Blood Urea Nitrogen 69 mg/dL (8-26); Carbon Dioxide 31 mEq/L (19-29); Chloride 107 mEq/L (98-109); Potassium 4.8 mEq/L (3.5-4.5); Sodium 144 mEq/L (136-145)
[2017-08-25 04:25] LABS: BUN/Creatinine Ratio 53 (6-26); Calcium 8.8 mg/dL (8.6-10.8); Glucose 268 mg/dL (70-99); Osmolality,Calculated 328 (280-300); eGFR For African Americans > 60 (> 60); eGFR For Non-African Americans 56 (> 60)
[2017-08-25] MEDS: *HR* Heparin 5,000 UNIT/ML VIAL SQ SCH ×2 (04:42→18:17)
[2017-08-25] MEDS: MethylPREDNISolone 40 MG/ML VIAL IVP SCH ×2 (04:42→18:17)
[2017-08-25 05:29] LABS: ABG Base Excess 8 mEq/L (-2 to 3); ABG HCO3 36 mEq/L (21-27); ABG Oxygen Saturation 97 % (95-98); ABG PCO2 62 mmHg (35-45); ABG PH 7.37 pH Units (7.32-7.45); ABG PO2 93 mmHg (85-104); ABG TCO2 38 mEq/L (20-26); Blood Gas Modality VC
[2017-08-25] MEDS: Dexmedetomidine HCl 400 MCG/100 ML MLS IVC SCH ×5 (06:00→21:44)
--- NOTE | 2017-08-25 08:51 | Pulmonology Progress Note ---
<Edilberto Higuera - Last Filed: 08/25/17 16:48> Date of Encounter: 08/25/17 Time of Encounter: 08:49 Assessment and Plan (1) Septic shock Current Visit: Yes Status: Acute Source most likely from PNA. CXR showed RLL infiltartes/effusion. HR has been well controlled, and MAP >65. - extubated today, currently calm. - MAP 71 today, goal >65. on 3 levophed - abx: day 4 of azithromycin + ceftriaxone - patient given clonazepam, olanzepine and haldol PRN to reduce agitation (2) NSTEMI (non-ST elevated myocardial infarction) Current Visit: Yes Status: Acute EKG depression V2-V5 anterolateral NSTEMI. Trops 3.93, 2.46, and 1.38.echo: HFpEF 60-65% - continue ASA81 - cardiology following. waiting for nephro clearance prior to cath'ing and patient to stablize - patient's believes patient would be willing to be compliant with anti- coagulation for the rest of his life. Will further discuss once patient has returned to mental baseline (3) Sepsis with multi-organ dysfunction Current Visit: Yes Status: Acute Involvement includes Heart, lung, kidney and hypotension. Septic shock source most likely PNA. - ct. abx - nephro following for cath clearance (4) Acute hypercapnic respiratory failure Current Visit: Yes Status: Acute ABG - pending - extubated today, will further evaluate. previous attempt to extubate patient became very agitated (5) Acute exacerbation of chronic obstructive airways disease Current Visit: No Status: Acute Patient in the last few weeks stopped his COPD treatments at home as they were no longer working for him. And last week, he stopped using his home oxygen. home O2 4L. - continue PPX abx - O2 goal 88-92% (6) Hyperkalemia Current Visit: Yes Status: Acute hyperK resolved (7) Seizure disorder Current Visit: Yes Status: Acute currently stable on Keppra (8) 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, type II Current Visit: No Status: Acute - continue medium SSI, consider lowering based on BG Qualifiers: 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 complication status: with circulatory complication 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 complication detail: with other circulatory complications 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 chcf insulin use: with emt intermediate use Qualified Code(s) : E11.59 - Type 2 diabetes mellitus with other circulatory complications; Z79.4 - jail (current) use of insulin; Z79.4 - jail (current) use of insulin ; Z79.4 - emt intermediate (current) use of insulin; Z79.4 - jail (current) use of insulin (9) Hepatitis C Current Visit: No Status: Acute according to , treated over 2 years ago without complication. denies patient is a current IVDU Qualifiers: Viral hepatitis chronicity: chronic Hepatic coma status: with hepatic coma Qualified Code(s): B18.2 - Chronic viral hepatitis C (10) Obesity (BMI 30-39.9) Current Visit: Yes Status: Acute BMI 32.4. (11) DVT prophylaxis Current Visit: Yes Status: Acute D/C'ed heparin - started on intermittent pneumatic compression (12) Goals of care, counseling/discussion Current Visit: Yes Status: Acute Discussed with , patient's goals for therapy. She states he never had anything written down, but he wished to have everything done to keep him alive. She defaults as health proxy. Sheri Thompson [phone] (13) Elevated liver enzymes Current Visit: Yes Status: Acute AST and ALT in 300-400 range. Patient has a history of liver cirrhosis and hep C which was treated a couple years back according to patient. Patient's denies IVDU. - Ammona levels normal Subjective Principal diagnosis: NSTEMI Interval history: Mr Thompson is a 61 yo male day 4 of admission due to septic shock, NSTEMI, and CELINA. Patient was extubated this morning at 8:15 and is cooperative and verbally communicating. Objective PUL Vital signs: Last Vital Signs Temp 97.9 F 08/25/17 07:36 Pulse 113 08/25/17 08:00 Resp 16 08/25/17 08:00 BP 96/80 08/25/17 08:00 Pulse Ox 98 08/25/17 08:00 General appearance: no acute distress (slightly confused, but is appropriate to the situation) Eyes: nonicteric Effort: normal Auscultation: bilateral: wheezes (bilateral expiratory wheezes) Cardiovascular: regular rate and rhythm Gastrointestinal: hypoactive bowel sounds, non-tender, non-distended Extremities: pink and warm, pulses normal, edema (+2/4 LE bilaterally. improvement from yesterday) Musculoskeletal: no deformities normal mental status, pupils equal and round mood appropriate, affect normal Ventilator Settings Ventilator Settings: Ventilator Settings, Last 8 Hours Ventilator Mode CPAP Ventilator Mode VC+ Ventilator Mode VC+ Ventilator Mode CPAP Ventilator Mode VC+ Ventilator Mode VC+ Ventilator Mode VC+ Ventilator Mode VC+ Ventilator Mode VC+ Ventilator Mode VC+ Ventilator Mode VC+ Ventilator Tidal Volume 600 Setting Ventilator Tidal Volume 600 Setting Ventilator Tidal Volume 600 Setting Ventilator Tidal Volume 600 Setting Ventilator Tidal Volume 600 Setting Ventilator Tidal Volume 600 Setting Ventilator Tidal Volume 600 Setting Ventilator Tidal Volume 600 Setting Ventilator Tidal Volume 600 Setting Ventilator Tidal Volume 600 Setting Ventilator Tidal Volume 600 Setting Ventilator Respiratory Rate 16 Setting Ventilator Respiratory Rate 16 Setting Ventilator Respiratory Rate 16 Setting Ventilator Respiratory Rate 16 Setting Ventilator Respiratory Rate 16 Setting Ventilator Respiratory Rate 16 Setting Ventilator Respiratory Rate 16 Setting Ventilator Respiratory Rate 16 Setting Ventilator Respiratory Rate 16 Setting Ventilator Respiratory Rate 16 Setting Actual Respiratory Rate 13 Actual Respiratory Rate 21 Actual Respiratory Rate 16 Actual Respiratory Rate 12 Actual Respiratory Rate 18 Actual Respiratory Rate 18 Actual Respiratory Rate 16 Actual Respiratory Rate 16 Actual Respiratory Rate 16 Actual Respiratory Rate 16 Actual Respiratory Rate 16 Positive End Expiratory 5 Pressure Positive End Expiratory 5 Pressure Positive End Expiratory 5 Pressure Positive End Expiratory 5 Pressure Positive End Expiratory 5 Pressure Positive End Expiratory 5 Pressure Positive End Expiratory 5 Pressure Positive End Expiratory 5 Pressure Positive End Expiratory 5 Pressure Positive End Expiratory 5 Pressure Positive End Expiratory 5 Pressure Positive End Expiratory 5 Pressure Peak Inspiratory Airway 15 Pressure Peak Inspiratory Airway 43 Pressure Peak Inspiratory Airway 18 Pressure Peak Inspiratory Airway 18 Pressure Peak Inspiratory Airway 37 Pressure Peak Inspiratory Airway 35 Pressure Peak Inspiratory Airway 28 Pressure Peak Inspiratory Airway 30 Pressure Peak Inspiratory Airway 29 Pressure Peak Inspiratory Airway 28 Pressure Peak Inspiratory Airway 28 Pressure Results - Laboratory Findings CBC and BMP: 08/25/17 03:58 08/25/17 03:58 ABG ABG pH 7.37 pH Units (7.32-7.45) 08/25/17 05:24 ABG pCO2 62 mmHg (35-45) H 08/25/17 05:24 ABG pO2 93 mmHg (85-104) 08/25/17 05:24 ABG O2 Saturation 97 % (95-98) 08/25/17 05:24 Abnormal lab findings: Abnormal lab results RBC 3.52 M/mcL (4.19-5.50) L 08/25/17 03:58 Hgb 10.3 g/dL (12.9-16.9) L 08/25/17 03:58 Hct 34.6 % (37.5-50.1) L 08/25/17 03:58 MCHC 29.8 g/dL (31.6-35.5) L 08/25/17 03:58 RDW 16.1 % (11.5-14.5) H 08/25/17 03:58 Plt Count 101 K/mcL (140-400) L 08/25/17 03:58 Neutrophils # 15.3 K/mcL (1.6-8.9) H 08/22/17 05:00 Nucleated RBCs/100 WBC 0.9 /100 WBC (0) H 08/22/17 05:00 Platelet Estimate Decreased (Normal) L 08/21/17 23:15 Polychromasia 1+ (Not Present) A 08/21/17 23:15 Hypochromasia Present (Not Present) A 08/21/17 23:15 Anisocytosis 1+ (Not Present) A 08/21/17 23:15 Macrocytosis Present (Not Present) A 08/21/17 23:15 APTT 105.1 Seconds (26.0-36.0) H 08/24/17 02:21 ABG pCO2 62 mmHg (35-45) H 08/25/17 05:24 ABG HCO3 36 mEq/L (21-27) H 08/25/17 05:24 ABG Total CO2 38 mEq/L (20-26) H 08/25/17 05:24 ABG Base Excess 8 mEq/L (-2 to 3) H 08/25/17 05:24 Potassium 4.8 mEq/L (3.5-4.5) H 08/25/17 03:58 Carbon Dioxide 31 mEq/L (19-29) H 08/25/17 03:58 BUN 69 mg/dL (8-26) H 08/25/17 03:58 Creatinine 1.30 mg/dL (0.72-1.25) H 08/25/17 03:58 Est GFR (Non-Af Amer) 56 (> 60) L 08/25/17 03:58 BUN/Creatinine Ratio 53 (6-26) H 08/25/17 03:58 Glucose 268 mg/dL (70-99) H 08/25/17 03:58 POC Glucose 185 (58-89) H 08/25/17 07:18 Hemoglobin A1c 6.5 % (-5.6) H 08/22/17 05:00 Calculated Osmolality 328 (280-300) H 08/25/17 03:58 Phosphorus 10.7 mg/dL (2.3-4.7) H 08/21/17 22:15 Magnesium 2.8 mg/dL (1.6-2.6) H 08/21/17 22:15 AST 295 Units/L (5-34) H 08/22/17 05:00 ALT 393 Units/L (0-55) H 08/22/17 05:00 Troponin I 1.38 ng/mL (0-0.03) H* 08/22/17 17:00 Albumin 2.7 g/dL (3.5-5.0) L 08/22/17 05:00 Albumin/Globulin Ratio 0.8 (1.1-2.2) L 08/22/17 05:00 Urine Clarity Cloudy (Clear) A 08/22/17 08:30 Urine Protein 30 mg/dL (Neg-Trace) H 08/22/17 08:30 Urine Blood Moderate (Negative) H 08/22/17 08:30 Urine Microscopic WBC 5-15 per hpf (0-3) H 08/22/17 08:30 Ur Squamous Epith Cells Many per lpf (None-Few) H 08/22/17 08:30 Urine Opiates Screen Positive ng/mL (Zvmoga=136) H 08/22/17 02:15 U Benzodiazepines Scrn Positive ng/mL (Xgwrgw=774) H 08/22/17 02:15 - Microbiology Findings Microbiology Findings: Microbiology, Last 48 Hours 08/22/17 03:23 Sputum Culture - Final Sputum Stenotrophomonas maltophilia - Clinical Findings Intake & Output: Intake & Output 08/24/17 08/25/17 08/25/17 23:59 07:59 15:59 Intake Total 765 / 765 813 / 813 Output Total 300 / 300 1000 / 1000 Balance 465 / 465 -187 / -187 Weight 114.4 kg - VTE Reasons for not Prescribing Prophylaxis: Not indicated-Anticoagulated or INR therapeutic Consult Discharge Plan - Plan [facility]errals: [facility] [Primary Care Provider[facility] - <Vibha Fulton - Last Filed: 08/25/17 20:57> Date of Encounter: 08/25/17 Objective PUL Vital signs: Last Vital Signs Temp 98.7 F 08/25/17 19:00 Pulse 87 08/25/17 20:27 Resp 20 08/25/17 20:27 BP 130/62 08/25/17 20:27 Pulse Ox 97 08/25/17 20:27 Results - Laboratory Findings CBC and BMP: 08/25/17 03:58 08/25/17 03:58 ABG ABG pH 7.37 pH Units (7.32-7.45) 08/25/17 05:24 ABG pCO2 62 mmHg (35-45) H 08/25/17 05:24 ABG pO2 93 mmHg (85-104) 08/25/17 05:24 ABG O2 Saturation 97 % (95-98) 08/25/17 05:24 Abnormal lab findings: Abnormal lab results RBC 3.52 M/mcL (4.19-5.50) L 08/25/17 03:58 Hgb 10.3 g/dL (12.9-16.9) L 08/25/17 03:58 Hct 34.6 % (37.5-50.1) L 08/25/17 03:58 MCHC 29.8 g/dL (31.6-35.5) L 08/25/17 03:58 RDW 16.1 % (11.5-14.5) H 08/25/17 03:58 Plt Count 101 K/mcL (140-400) L 08/25/17 03:58 Neutrophils # 15.3 K/mcL (1.6-8.9) H 08/22/17 05:00 Nucleated RBCs/100 WBC 0.9 /100 WBC (0) H 08/22/17 05:00 Platelet Estimate Decreased (Normal) L 08/21/17 23:15 Polychromasia 1+ (Not Present) A 08/21/17 23:15 Hypochromasia Present (Not Present) A 08/21/17 23:15 Anisocytosis 1+ (Not Present) A 08/21/17 23:15 Macrocytosis Present (Not Present) A 08/21/17 23:15 APTT 105.1 Seconds (26.0-36.0) H 08/24/17 02:21 ABG pCO2 62 mmHg (35-45) H 08/25/17 05:24 ABG HCO3 36 mEq/L (21-27) H 08/25/17 05:24 ABG Total CO2 38 mEq/L (20-26) H 08/25/17 05:24 ABG Base Excess 8 mEq/L (-2 to 3) H 08/25/17 05:24 Potassium 4.8 mEq/L (3.5-4.5) H 08/25/17 03:58 Carbon Dioxide 31 mEq/L (19-29) H 08/25/17 03:58 BUN 69 mg/dL (8-26) H 08/25/17 03:58 Creatinine 1.30 mg/dL (0.72-1.25) H 08/25/17 03:58 Est GFR (Non-Af Amer) 56 (> 60) L 08/25/17 03:58 BUN/Creatinine Ratio 53 (6-26) H 08/25/17 03:58 Glucose 268 mg/dL (70-99) H 08/25/17 03:58 Hemoglobin A1c 6.5 % (-5.6) H 08/22/17 05:00 Calculated Osmolality 328 (280-300) H 08/25/17 03:58 Phosphorus 10.7 mg/dL (2.3-4.7) H 08/21/17 22:15 Magnesium 2.8 mg/dL (1.6-2.6) H 08/21/17 22:15 AST 295 Units/L (5-34) H 08/22/17 05:00 ALT 393 Units/L (0-55) H 08/22/17 05:00 Troponin I 1.38 ng/mL (0-0.03) H* 08/22/17 17:00 Albumin 2.7 g/dL (3.5-5.0) L 08/22/17 05:00 Albumin/Globulin Ratio 0.8 (1.1-2.2) L 08/22/17 05:00 Urine Clarity Cloudy (Clear) A 08/22/17 08:30 Urine Protein 30 mg/dL (Neg-Trace) H 08/22/17 08:30 Urine Blood Moderate (Negative) H 08/22/17 08:30 Urine Microscopic WBC 5-15 per hpf (0-3) H 08/22/17 08:30 Ur Squamous Epith Cells Many per lpf (None-Few) H 08/22/17 08:30 Urine Opiates Screen Positive ng/mL (Gbyqfw=711) H 08/22/17 02:15 U Benzodiazepines Scrn Positive ng/mL (Qcbzgv=050) H 08/22/17 02:15 - Microbiology Findings Microbiology Findings: Microbiology, Last 48 Hours 08/22/17 03:23 Sputum Culture - Final Sputum Stenotrophomonas maltophilia - Clinical Findings Intake & Output: Intake & Output 08/25/17 08/25/17 08/25/17 07:59 15:59 23:59 Intake Total 813 / 813 325 / 325 102.5 / 102.5 Output Total 1000 / 1000 850 / 850 350 / 350 Balance -187 / -187 -525 / -525 -247.5 / -247.5 Weight 114.4 kg - Attending Attestation I examined this patient and my medical decision-making was reviewed with the Resident Physician. I agree with the documented findings, disposition and treatment plan as described except to the extent set forth below. Patient seen and examined. Labs, radiology, chart personally reviewed. 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 After extubation patient was very agitated sometimes and continue sedation and remained very high risk for reintubation. We'll attempt noninvasive intubation as patient is cooperative. Cardiovascular: stable GI: Nutrition per dietary and GI prophylaxis per routine Heme: DVT prophylaxis per routine ID: Continue antibiotics and plan to de-escalation Renal; urine out put and renal funtion reviewed Endorcine: blood glucose is monitored Lines: all lines checked and no evidence of infections Skin: skin care to prevent pressure ulcers per nursing routine care patient needs to stay in the ICUbecause of his mental status and risk of acute respiratory failure and may need reintubation. I spent 35 min of Critical Care time with this patient. It involved decision making of high complexity to assess, manipulate, and support vital organ system failure and/or to prevent further life threatening deterioration of the patient' s condition. The time involved in the performance of separately reportable procedures was not counted toward critical care time.
[2017-08-25] MEDS: Pantoprazole 40 MG VIAL IVP SCH (08:54)
[2017-08-25] MEDS: Insulin DETEMIR 100 UNIT/ML X5UNITS SQ SCH (08:57)
--- NOTE | 2017-08-25 09:15 | Nephrology Progress Note ---
Date of Encounter: 08/25/17 Time of Encounter: 08:55 - Assessment and Plan (1) Acute kidney failure, unspecified Current Visit: Yes Status: Acute CELINA, hypercapneic respiratory failure. Renal fct continues to improve, creat 1.30. Documented urine output 2225 cc/24hrs. Will continue to monitor. Qualifiers: Acute renal failure type: unspecified Qualified Code(s): N17.9 - Acute kidney failure, unspecified Subjective Principal diagnosis: NSTEMI Interval history: Extubated within last hour, use of accessory muscles. Non-sensical verbal. Reaching at things mid air. Question if hallucinations. Objective - Vital Signs Vital signs: Vital Signs Temp Pulse Resp BP Pulse Ox 08/25/17 08:00 113 16 96/80 98 08/25/17 07:45 21 115/73 92 08/25/17 07:36 97.9 F 08/25/17 07:35 97.9 F 08/25/17 07:25 57 08/25/17 07:00 57 21 99/44 96 08/25/17 06:00 121 22 191/64 96 08/25/17 05:46 12 114/94 97 08/25/17 05:00 106 18 135/68 96 08/25/17 04:55 97.8 F 08/25/17 04:00 108 16 139/92 92 08/25/17 03:40 98 16 128/65 93 08/25/17 03:22 16 106/52 98 08/25/17 02:00 74 16 117/58 98 08/25/17 01:45 16 112/58 97 08/25/17 01:00 83 16 114/57 98 08/25/17 00:22 97.7 F 08/25/17 00:00 79 16 119/59 98 08/24/17 23:50 77 16 112/57 97 08/24/17 23:13 16 109/53 97 08/24/17 22:04 75 16 166/61 97 08/24/17 21:47 16 103/53 97 08/24/17 21:00 78 16 116/54 98 08/24/17 20:57 98.0 F 08/24/17 20:20 88 16 103/56 98 08/24/17 19:36 16 98/48 99 08/24/17 19:00 117 22 116/80 93 08/24/17 18:00 105 20 115/65 99 08/24/17 17:00 72 20 99/45 95 08/24/17 16:40 16 102/50 96 08/24/17 16:01 67 08/24/17 16:00 112 21 133/68 98 08/24/17 15:43 67 08/24/17 15:17 17 103/54 100 08/24/17 15:00 97.7 F 67 19 103/54 100 08/24/17 14:09 106 16 108/92 98 08/24/17 14:00 93 16 108/92 98 08/24/17 13:00 106 19 123/69 96 08/24/17 12:10 97.6 F 08/24/17 12:00 97.6 F 08/24/17 11:45 114 08/24/17 11:14 17 107/71 94 08/24/17 11:00 114 22 107/71 94 08/24/17 10:00 98 18 141/80 94 08/24/17 09:15 16 134/62 93 Intake and Output 08/24/17 08/25/17 08/25/17 23:59 07:59 15:59 Intake Total 765 / 765 813 / 813 Output Total 300 / 300 1000 / 1000 Balance 465 / 465 -187 / -187 Intake: IV Fluids 640 / 640 600 / 600 PRECEDEX Premix 400 mcg In 100 0 / 0 ml @ 0.2 MCG/KG/HR 5.735 mls/hr IVC .[id number] MESSI Rx#: [id number] FentaNYL (PF) 3,000 MCG In 0.9 240 / 240 200 / 200 % Sodium Chloride 240 ML @ 50 MCG/HR 5 mls/hr IVC CONT MESSI Rx #:[id number] Versed 50 MG In 0.9 % Sodium 200 / 200 200 / 200 Chloride 90 ML @ 2 MG/HR 4 mls/ hr IVC CONT MESSI Rx#:[id number] Diprivan 1,000 mg In 100 ml @ 5 200 / 200 200 / 200 MCG/KG/MIN 3.246 mls/hr IVC . Q24H MESSI Rx#:[id number] Tube Feeding 125 / 125 213 / 213 Free Water Intake Amount 0 / 0 0 / 0 Output: Catheter 300 / 300 1000 / 1000 Other: Weight 114.4 kg Blood Glucose* 216 185 Patient Weight 08/25/17 23:59 Weight 114.4 kg - General Appearance General appearance: Present: well-developed, well-nourished, appears started age EENT: Present: mucous membranes moist Neck: Present: no JVD Respiratory: Present: rhonchi Cardiology: Present: edema, regular rate, regular rhythm Additional Comments: mild pitting LE Gastrointestinal: Present: normoactive bowel sounds, no guarding Integumentary: Present: warm and dry - Lab 08/25/17 03:58 08/25/17 03:58 Most recent lab results ABG pH 7.37 pH Units (7.32-7.45) 08/25/17 05:24 ABG pCO2 62 mmHg (35-45) H 08/25/17 05:24 ABG pO2 93 mmHg (85-104) 08/25/17 05:24 ABG HCO3 36 mEq/L (21-27) H 08/25/17 05:24 ABG O2 Saturation 97 % (95-98) 08/25/17 05:24 Calcium 8.8 mg/dL (8.6-10.8) 08/25/17 03:58 Phosphorus 10.7 mg/dL (2.3-4.7) H 08/21/17 22:15 Magnesium 2.8 mg/dL (1.6-2.6) H 08/21/17 22:15 - VTE Reasons for not Prescribing Prophylaxis: Not indicated-Anticoagulated or INR therapeutic Consult Discharge Plan - Plan [facility]errals: [facility] [Primary Care Provider] -
[2017-08-25] MEDS: *HR* LORazepam 2 MG/ML VIAL IVP PRN (09:27)
[2017-08-25] MEDS: Haloperidol Lactate 5 MG/ML VIAL IVP PRN ×2 (09:59→21:06)
[2017-08-25] MEDS: Aspirin 81 MG TAB.CHEW PO SCH (10:49)
[2017-08-25] MEDS: Sulfamethoxazole/Trimeth Oral Soln 400-80mg/10 ML UDC PO SCH ×3 (10:49→19:15)
[2017-08-25] MEDS: levETIRAcetam 250 MG TABLET PO SCH (10:49)
[2017-08-25] MEDS: Chlorhexidine Rinse 15 ML MOUTHWASH MM SCH ×2 (10:49→19:15)
[2017-08-25] MEDS ORDERED: Haloperidol Lactate 5 MG/ML VIAL IVP ONE ×2 (11:11→12:51)
[2017-08-25] MEDS ORDERED: *HR* LORazepam 2 MG/ML VIAL IVP ONE ×2 (11:13→12:54)
[2017-08-25] MEDS: OLANZapine 5 MG TAB.RAPDIS PO SCH (11:16)
[2017-08-25] MEDS ORDERED: OLANZapine 10 MG VIAL IVP SCH ×2 (13:15→20:00)
[2017-08-25] MEDS: *HR* Dextrose 50 % in Water (Syg) 50 ML SYRINGE IVP PRN ×4 (15:00→20:27)
[2017-08-25] MEDS: FentaNYL (PF) 3,000 MCG in 0.9 % Sodium Chloride 240 ML IVC SCH (19:15)
[2017-08-25] MEDS ORDERED: Water for inj. (sterile) 10 ML IV ONE (19:37)
[2017-08-25] MEDS ORDERED: OLANZapine 10 MG VIAL IM SCH (20:00)
--- NOTE | 2017-08-25 20:01 | Electrocardiograph Report ---
[address] [place], [place] [address] Test Date: 2017-08-24 Pat Name: Bhavesh Thompson Department: 109 Room: 04 Gender: M Knuckler: : 1955 Requested By: Edilberto Higuera Order Number: [id number] Reading MD: Jed Landry MD Measurements Intervals [place] Rate: 78 P: 47 [place]: 150 QRS: 45 QRSD: 105 T: -13 QT: 392 QTc: 425 Interpretive Statements SINUS RHYTHM LOW QRS VOLTAGE IN EXTREMITY LEADS ANTERIOR ISCHEMIA Electronically Signed On 08-25-2017 20:00:09 EDT by Jde Landry MD
[2017-08-25] MEDS: levETIRAcetam 250 MG in 0.9 % Sodium Chloride 100 ML IVPB SCH (20:02)
[2017-08-26] MEDS: Lacri-Lube 3.5 GM TUBE BOTH EYES SCH (00:26)
[2017-08-26] MEDS: Dexmedetomidine HCl 400 MCG/100 ML MLS IVC SCH ×4 (00:51→17:03)
[2017-08-26 03:12] LABS: Hemoglobin 10.2 g/dL (12.9-16.9); Mean Corpuscular HGB Conc 29.1 g/dL (31.6-35.5); Mean Corpuscular Hemoglobin 29.5 pg (28.0-33.3); Mean Corpuscular Volume 101.2 fL (83.0-100.0); Mean Platelet Volume 10.5 fL (9.4-12.4); Red Blood Count 3.46 M/mcL (4.19-5.50); Red Cell Distribution Width 15.5 % (11.5-14.5)
[2017-08-26 03:13] LABS: Platelet Count 91 K/mcL (140-400)
[2017-08-26] MEDS: Insulin LISPRO 300 UNITS/3 ML VIAL SQ SCH ×6 (03:24→20:13)
[2017-08-26 03:26] LABS: BUN/Creatinine Ratio 46 (6-26); Blood Urea Nitrogen 55 mg/dL (8-26); Calcium 9.2 mg/dL (8.6-10.8); Carbon Dioxide 34 mEq/L (19-29); Chloride 111 mEq/L (98-109); Glucose 157 mg/dL (70-99); Osmolality,Calculated 326 (280-300); Potassium 5.7 mEq/L (3.5-4.5); Sodium 149 mEq/L (136-145); eGFR For African Americans > 60 (> 60); eGFR For Non-African Americans > 60 (> 60)
[2017-08-26] MEDS: Ipratropium/Albuterol Neb 3 ML IH SCH ×6 (03:31→23:04)
[2017-08-26] MEDS: *HR* Heparin 5,000 UNIT/ML VIAL SQ SCH ×2 (05:05→18:14)
[2017-08-26] MEDS: MethylPREDNISolone 40 MG/ML VIAL IVP SCH (05:05)
[2017-08-26] MEDS: Haloperidol Lactate 5 MG/ML VIAL IVP PRN ×3 (05:45→22:14)
--- NOTE | 2017-08-26 08:23 | Pulmonology Progress Note ---
<Edilberto Higuera - Last Filed: 08/26/17 08:41> Date of Encounter: 08/26/17 Time of Encounter: 08:21 Assessment and Plan (1) Septic shock Current Visit: Yes Status: Acute Source most likely from PNA. CXR showed RLL infiltartes/effusion. HR has been well controlled, and MAP >65. - extubated today. agitated all day yesterday, remains calm but restless - MAP goal >65. - abx: day 5 of ceftriaxone + day 3 of bactrim - patient given clonazepam, olanzepine and haldol PRN to reduce agitation (2) NSTEMI (non-ST elevated myocardial infarction) Current Visit: Yes Status: Acute EKG depression V2-V5 anterolateral NSTEMI. Trops 3.93, 2.46, and 1.38.echo: HFpEF 60-65% - continue ASA81 - cardiology following. waiting for nephro clearance prior to cath'ing and patient to stablize - patient's believes patient would be willing to be compliant with anti- coagulation post treatment and anti-platelet for the rest of his life. Will further discuss once patient has returned to mental baseline (3) Acute kidney failure, unspecified Current Visit: Yes Status: Acute On admission Cr 13.13. Today Cr 1.20 - Nephrology following - Cardio considering cath on renal clearance Qualifiers: Acute renal failure type: unspecified Qualified Code(s): N17.9 - Acute kidney failure, unspecified (4) Sepsis with multi-organ dysfunction Current Visit: Yes Status: Acute Involvement includes Heart, lung, kidney and hypotension. Septic shock source most likely PNA. - ct. abx - nephro following for cath clearance (5) Acute hypercapnic respiratory failure Current Visit: Yes Status: Acute ABG - last 7.37 62 93 36 38 97 8. currently resolved - will continue to assess for agitation (6) Acute exacerbation of chronic obstructive airways disease Current Visit: No Status: Acute Patient in the last few weeks stopped his COPD treatments at home as they were no longer working for him. And last week, he stopped using his home oxygen. home O2 4L. 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 denies patient is a current IVDU Qualifiers: Viral hepatitis chronicity: chronic Hepatic coma status: with hepatic coma Qualified Code(s): B18.2 - Chronic viral hepatitis C (10) Obesity (BMI 30-39.9) Current Visit: Yes Status: Acute BMI 32.4. (11) DVT prophylaxis Current Visit: Yes Status: Acute D/C'ed heparin - started on intermittent pneumatic compression (12) Goals of care, counseling/discussion Current Visit: Yes Status: Acute Discussed with , patient's goals for therapy. She states he never had anything written down, but he wished to have everything done to keep him alive. She defaults as health proxy. Sheri Thompson [phone] (13) Elevated liver enzymes Current Visit: Yes Status: Acute AST and ALT in 300-400 range. Patient has a history of liver cirrhosis and hep C which was treated a couple years back according to patient. Patient's denies IVDU. Ammonia levels normal (14) Hyperkalemia Current Visit: Yes Status: Acute hyperK resolved Subjective Principal diagnosis: NSTEMI Interval history: Mr Thompson is a 61 yo male day 5 of admission due to septic shock, NSTEMI, and CELINA. Patient was agitated all day yesterday, but overnight patient remained calm. No events overnight, but remains restless. Objective PUL Vital signs: Last Vital Signs Temp 98.4 F 08/26/17 07:28 Pulse 59 08/26/17 06:00 Resp 27 08/26/17 08:02 BP 140/73 08/26/17 08:02 Pulse Ox 94 08/26/17 08:02 General appearance: no acute distress (currently non-agitated, but remains confused and disoriented) Eyes: nonicteric Effort: mildly labored Auscultation: bilateral: wheezes (bilateral expiratory wheezes) Cardiovascular: regular rate and rhythm Gastrointestinal: hypoactive bowel sounds, soft, non-distended Integumentary: normal Extremities: no cyanosis, no edema (no edema today) other (restless) Results - Laboratory Findings CBC and BMP: 08/26/17 03:00 08/26/17 03:00 ABG ABG pH 7.37 pH Units (7.32-7.45) 08/25/17 05:24 ABG pCO2 62 mmHg (35-45) H 08/25/17 05:24 ABG pO2 93 mmHg (85-104) 08/25/17 05:24 ABG O2 Saturation 97 % (95-98) 08/25/17 05:24 Abnormal lab findings: Abnormal lab results RBC 3.46 M/mcL (4.19-5.50) L 08/26/17 03:00 Hgb 10.2 g/dL (12.9-16.9) L 08/26/17 03:00 Hct 35.0 % (37.5-50.1) L 08/26/17 03:00 MCV 101.2 fL (83.0-100.0) H 08/26/17 03:00 MCHC 29.1 g/dL (31.6-35.5) L 08/26/17 03:00 RDW 15.5 % (11.5-14.5) H 08/26/17 03:00 Plt Count 91 K/mcL (140-400) L 08/26/17 03:00 Neutrophils # 15.3 K/mcL (1.6-8.9) H 08/22/17 05:00 Nucleated RBCs/100 WBC 0.9 /100 WBC (0) H 08/22/17 05:00 Platelet Estimate Decreased (Normal) L 08/21/17 23:15 Polychromasia 1+ (Not Present) A 08/21/17 23:15 Hypochromasia Present (Not Present) A 08/21/17 23:15 Anisocytosis 1+ (Not Present) A 08/21/17 23:15 Macrocytosis Present (Not Present) A 08/21/17 23:15 APTT 105.1 Seconds (26.0-36.0) H 08/24/17 02:21 ABG pCO2 62 mmHg (35-45) H 08/25/17 05:24 ABG HCO3 36 mEq/L (21-27) H 08/25/17 05:24 ABG Total CO2 38 mEq/L (20-26) H 08/25/17 05:24 ABG Base Excess 8 mEq/L (-2 to 3) H 08/25/17 05:24 Sodium 149 mEq/L (136-145) H 08/26/17 03:00 Potassium 5.7 mEq/L (3.5-4.5) H 08/26/17 03:00 Chloride 111 mEq/L (98-109) H 08/26/17 03:00 Carbon Dioxide 34 mEq/L (19-29) H 08/26/17 03:00 BUN 55 mg/dL (8-26) H 08/26/17 03:00 BUN/Creatinine Ratio 46 (6-26) H 08/26/17 03:00 Glucose 157 mg/dL (70-99) H 08/26/17 03:00 POC Glucose 156 (58-89) H 08/26/17 07:32 Hemoglobin A1c 6.5 % (-5.6) H 08/22/17 05:00 Calculated Osmolality 326 (280-300) H 08/26/17 03:00 Phosphorus 10.7 mg/dL (2.3-4.7) H 08/21/17 22:15 Magnesium 2.8 mg/dL (1.6-2.6) H 08/21/17 22:15 AST 295 Units/L (5-34) H 08/22/17 05:00 ALT 393 Units/L (0-55) H 08/22/17 05:00 Troponin I 1.38 ng/mL (0-0.03) H* 08/22/17 17:00 Albumin 2.7 g/dL (3.5-5.0) L 08/22/17 05:00 Albumin/Globulin Ratio 0.8 (1.1-2.2) L 08/22/17 05:00 Urine Clarity Cloudy (Clear) A 08/22/17 08:30 Urine Protein 30 mg/dL (Neg-Trace) H 08/22/17 08:30 Urine Blood Moderate (Negative) H 08/22/17 08:30 Urine Microscopic WBC 5-15 per hpf (0-3) H 08/22/17 08:30 Ur Squamous Epith Cells Many per lpf (None-Few) H 08/22/17 08:30 Urine Opiates Screen Positive ng/mL (Yfzlbm=974) H 08/22/17 02:15 U Benzodiazepines Scrn Positive ng/mL (Muskfm=690) H 08/22/17 02:15 - Microbiology Findings Microbiology Findings: Microbiology, Last 48 Hours 08/22/17 03:23 Sputum Culture - Final Sputum Stenotrophomonas maltophilia - Clinical Findings Intake & Output: Intake & Output 08/25/17 08/26/17 08/26/17 23:59 07:59 15:59 Intake Total 267.5 / 267.5 185 / 185 Output Total 750 / 750 800 / 800 Balance -482.5 / -482.5 -615 / -615 - VTE Reasons for not Prescribing Prophylaxis: Not indicated-Anticoagulated or INR therapeutic Consult Discharge Plan - Plan [facility]errals: [facility]Primary Care Provider[facility] - <Vibha Fulton - Last Filed: 08/26/17 09:40> Date of Encounter: 08/26/17 Objective PUL Vital signs: Last Vital Signs Temp 98.4 F 08/26/17 07:28 Pulse 59 08/26/17 06:00 Resp 27 08/26/17 08:02 BP 140/73 08/26/17 08:02 Pulse Ox 94 08/26/17 08:02 Results - Laboratory Findings CBC and BMP: 08/26/17 03:00 08/26/17 03:00 ABG ABG pH 7.37 pH Units (7.32-7.45) 08/25/17 05:24 ABG pCO2 62 mmHg (35-45) H 08/25/17 05:24 ABG pO2 93 mmHg (85-104) 08/25/17 05:24 ABG O2 Saturation 97 % (95-98) 08/25/17 05:24 Abnormal lab findings: Abnormal lab results RBC 3.46 M/mcL (4.19-5.50) L 08/26/17 03:00 Hgb 10.2 g/dL (12.9-16.9) L 08/26/17 03:00 Hct 35.0 % (37.5-50.1) L 08/26/17 03:00 MCV 101.2 fL (83.0-100.0) H 08/26/17 03:00 MCHC 29.1 g/dL (31.6-35.5) L 08/26/17 03:00 RDW 15.5 % (11.5-14.5) H 08/26/17 03:00 Plt Count 91 K/mcL (140-400) L 08/26/17 03:00 Neutrophils # 15.3 K/mcL (1.6-8.9) H 08/22/17 05:00 Nucleated RBCs/100 WBC 0.9 /100 WBC (0) H 08/22/17 05:00 Platelet Estimate Decreased (Normal) L 08/21/17 23:15 Polychromasia 1+ (Not Present) A 08/21/17 23:15 Hypochromasia Present (Not Present) A 08/21/17 23:15 Anisocytosis 1+ (Not Present) A 08/21/17 23:15 Macrocytosis Present (Not Present) A 08/21/17 23:15 APTT 105.1 Seconds (26.0-36.0) H 08/24/17 02:21 ABG pCO2 62 mmHg (35-45) H 08/25/17 05:24 ABG HCO3 36 mEq/L (21-27) H 08/25/17 05:24 ABG Total CO2 38 mEq/L (20-26) H 08/25/17 05:24 ABG Base Excess 8 mEq/L (-2 to 3) H 08/25/17 05:24 Sodium 149 mEq/L (136-145) H 08/26/17 03:00 Potassium 5.7 mEq/L (3.5-4.5) H 08/26/17 03:00 Chloride 111 mEq/L (98-109) H 08/26/17 03:00 Carbon Dioxide 34 mEq/L (19-29) H 08/26/17 03:00 BUN 55 mg/dL (8-26) H 08/26/17 03:00 BUN/Creatinine Ratio 46 (6-26) H 08/26/17 03:00 Glucose 157 mg/dL (70-99) H 08/26/17 03:00 POC Glucose 156 (58-89) H 08/26/17 07:32 Hemoglobin A1c 6.5 % (-5.6) H 08/22/17 05:00 Calculated Osmolality 326 (280-300) H 08/26/17 03:00 Phosphorus 10.7 mg/dL (2.3-4.7) H 08/21/17 22:15 Magnesium 2.8 mg/dL (1.6-2.6) H 08/21/17 22:15 AST 295 Units/L (5-34) H 08/22/17 05:00 ALT 393 Units/L (0-55) H 08/22/17 05:00 Troponin I 1.38 ng/mL (0-0.03) H* 08/22/17 17:00 Albumin 2.7 g/dL (3.5-5.0) L 08/22/17 05:00 Albumin/Globulin Ratio 0.8 (1.1-2.2) L 08/22/17 05:00 Urine Clarity Cloudy (Clear) A 08/22/17 08:30 Urine Protein 30 mg/dL (Neg-Trace) H 08/22/17 08:30 Urine Blood Moderate (Negative) H 08/22/17 08:30 Urine Microscopic WBC 5-15 per hpf (0-3) H 08/22/17 08:30 Ur Squamous Epith Cells Many per lpf (None-Few) H 08/22/17 08:30 Urine Opiates Screen Positive ng/mL (Srbbuq=795) H 08/22/17 02:15 U Benzodiazepines Scrn Positive ng/mL (Aghbvt=502) H 08/22/17 02:15 - Microbiology Findings Microbiology Findings: Microbiology, Last 48 Hours 08/22/17 03:23 Sputum Culture - Final Sputum Stenotrophomonas maltophilia - Clinical Findings Intake & Output: Intake & Output 08/25/17 08/26/17 08/26/17 23:59 07:59 15:59 Intake Total 267.5 / 267.5 185 / 185 100 / 100 Output Total 750 / 750 800 / 800 Balance -482.5 / -482.5 -615 / -615 100 / 100 - Attending Attestation I examined this patient and my medical decision-making was reviewed with the Resident Physician. I agree with the documented findings, disposition and treatment plan as described except to the extent set forth below. Patient seen and examined. Labs, radiology, chart personally reviewed. 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 Pulmonary: Acceptable oxygenation and ventilation area patient is protecting his airway and noninvasive ventilation. Cardiovascular: stable GI: Nutrition per dietary and GI prophylaxis per routine. This would be a difficult issue because patient's agitation and also requiring noninvasive ventilation. Heme: DVT prophylaxis per routine ID: Continue antibiotics and plan to de-escalation Renal; urine out put and renal funtion reviewed Endorcine: blood glucose is monitored Lines: all lines checked and no evidence of infections Skin: skin care to prevent pressure ulcers per nursing routine care Patient still needs to remain in ICU mainly because of risk of deterioration of his respiratory status.
[2017-08-26] MEDS ORDERED: Insulin DETEMIR 100 UNIT/ML X5UNITS SQ SCH (09:00)
[2017-08-26] MEDS ORDERED: OLANZapine 10 MG VIAL IVP SCH ×2 (09:00→20:00)
[2017-08-26] MEDS: Aspirin 81 MG TAB.CHEW PO SCH (09:02)
[2017-08-26] MEDS: *HR* LORazepam 2 MG/ML VIAL IVP PRN (09:02)
[2017-08-26] MEDS: Pantoprazole 40 MG VIAL IVP SCH (09:02)
[2017-08-26] MEDS: Nicotine 14 MG PATCH.TD24 TD SCH (09:03)
[2017-08-26] MEDS: Insulin DETEMIR 100 UNIT/ML X5UNITS SQ SCH ×2 (09:17→20:13)
[2017-08-26] MEDS: levETIRAcetam 250 MG in 0.9 % Sodium Chloride 100 ML IVPB SCH ×2 (09:30→19:56)
[2017-08-26] MEDS: TRIMETH IVPB SCH ×2 (09:31→16:02)
[2017-08-26] MEDS: D5 IVPB SCH ×2 (09:31→16:02)
[2017-08-26] MEDS: WATER IVPB SCH ×2 (09:31→16:02)
[2017-08-26] MEDS: SULFAMETHOXAZOLE IVPB SCH ×2 (09:31→16:02)
--- NOTE | 2017-08-26 09:40 | Nephrology Progress Note ---
Date of Encounter: 08/26/17 Time of Encounter: 08:55 - Assessment and Plan (1) Acute kidney failure, unspecified Current Visit: Yes Status: Acute CELINA, hypercapneic respiratory failure. Renal fct continues to improve, creat 1.20, GFR > 60. Documented urine output 2600 cc/24hrs. Will sign off, call again if needed. Qualifiers: Acute renal failure type: unspecified Qualified Code(s): N17.9 - Acute kidney failure, unspecified Subjective Principal diagnosis: NSTEMI Interval history: Alert, on Bipap. Objective - Vital Signs Vital signs: Vital Signs Temp Pulse Resp BP Pulse Ox 08/26/17 08:02 27 140/73 94 08/26/17 07:28 98.4 F 08/26/17 06:00 59 22 129/70 93 08/26/17 05:06 71 18 129/70 93 08/26/17 04:47 9 08/26/17 04:01 61 22 122/60 96 08/26/17 03:32 22 93 08/26/17 03:02 98.6 F 56 19 122/66 93 08/26/17 02:05 57 17 134/59 95 08/26/17 01:00 59 18 129/52 96 08/26/17 00:00 98.6 F 71 16 140/90 96 08/25/17 23:01 19 98 08/25/17 23:00 56 18 141/63 98 08/25/17 22:00 81 21 147/70 98 08/25/17 21:00 87 20 130/62 97 08/25/17 20:01 60 16 149/72 97 08/25/17 19:48 15 94 08/25/17 19:00 98.7 F 97 28 113/82 94 08/25/17 18:00 79 17 156/53 95 08/25/17 17:14 20 125/69 99 08/25/17 17:00 87 15 117/77 96 08/25/17 16:00 79 18 125/69 94 08/25/17 15:55 87 08/25/17 15:04 98.5 F 08/25/17 14:00 89 20 143/93 94 08/25/17 13:00 73 18 134/71 95 08/25/17 12:00 101 20 154/103 94 08/25/17 11:02 123 08/25/17 10:00 123 22 147/91 94 Intake and Output 08/25/17 08/26/17 08/26/17 23:59 07:59 15:59 Intake Total 267.5 / 267.5 185 / 185 100 / 100 Output Total 750 / 750 800 / 800 Balance -482.5 / -482.5 -615 / -615 100 / 100 Intake: IV Fluids 267.5 / 267.5 185 / 185 100 / 100 PRECEDEX Premix 400 mcg In 100 165 / 165 185 / 185 100 / 100 ml @ 0.2 MCG/KG/HR 5.735 mls/hr IVC .[id number] MESSI Rx#: [id number] FentaNYL (PF) 3,000 MCG In 0.9 0 / 0 % Sodium Chloride 240 ML @ 50 MCG/HR 5 mls/hr IVC CONT MESSI Rx #:[id number] Versed 50 MG In 0.9 % Sodium 0 / 0 Chloride 90 ML @ 2 MG/HR 4 mls/ hr IVC CONT MESSI Rx#:[id number] Keppra 250 MG In 0.9 % Sodium 102.5 / 102.5 Chloride 100 ML @ 400 mls/hr IVPB BID MESSI Rx#:[id number] Output: Catheter 750 / 750 800 / 800 Other: Blood Glucose* 59 156 - General Appearance General appearance: Present: well-developed, well-nourished, appears started age EENT: Present: mucous membranes moist Neck: Present: no JVD Respiratory: Present: clear Cardiology: Present: no edema, regular rate, regular rhythm Gastrointestinal: Present: normoactive bowel sounds, no tenderness Integumentary: Present: warm and dry Psychiatric: Present: cooperative - Lab 08/26/17 03:00 08/26/17 03:00 Most recent lab results ABG pH 7.37 pH Units (7.32-7.45) 08/25/17 05:24 ABG pCO2 62 mmHg (35-45) H 08/25/17 05:24 ABG pO2 93 mmHg (85-104) 08/25/17 05:24 ABG HCO3 36 mEq/L (21-27) H 08/25/17 05:24 ABG O2 Saturation 97 % (95-98) 08/25/17 05:24 Calcium 9.2 mg/dL (8.6-10.8) 08/26/17 03:00 Phosphorus 10.7 mg/dL (2.3-4.7) H 08/21/17 22:15 Magnesium 2.8 mg/dL (1.6-2.6) H 08/21/17 22:15 - VTE Reasons for not Prescribing Prophylaxis: Not indicated-Anticoagulated or INR therapeutic Consult Discharge Plan - Plan [facility]errals: [facility] [Primary Care Provider] -
[2017-08-26] MEDS ORDERED: Furosemide 20 MG/2 ML VIAL IVP ONE (10:39)
--- NOTE | 2017-08-26 15:29 | Electrocardiograph Report ---
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
[2017-08-26 19:28] LABS: BUN/Creatinine Ratio 40 (6-26); Blood Urea Nitrogen 45 mg/dL (8-26); Calcium 9.3 mg/dL (8.6-10.8); Carbon Dioxide 31 mEq/L (19-29); Chloride 109 mEq/L (98-109); Glucose 136 mg/dL (70-99); Osmolality,Calculated 322 (280-300); Sodium 149 mEq/L (136-145); eGFR For African Americans > 60 (> 60); eGFR For Non-African Americans > 60 (> 60)
[2017-08-26] MEDS ORDERED: Insulin Human Regular 10 UNIT in 0.9 % Sodium Chloride 10 ML IV ONE (20:44)
[2017-08-26] MEDS ORDERED: *HR* Dextrose 50 % in Water (Syg) 50 ML SYRINGE IVP ONE (20:44)
[2017-08-26] MEDS ORDERED: Bisacodyl 10 MG RECTAL SUPPOSITORY RC SCH (21:00)
[2017-08-27] MEDS: Dexmedetomidine HCl 400 MCG/100 ML MLS IVC SCH ×2 (00:33→04:47)
[2017-08-27] MEDS: Insulin LISPRO 300 UNITS/3 ML VIAL SQ SCH ×6 (00:36→20:52)
[2017-08-27 00:51] LABS: BUN/Creatinine Ratio 36 (6-26); Blood Urea Nitrogen 41 mg/dL (8-26); Calcium 9.6 mg/dL (8.6-10.8); Carbon Dioxide 33 mEq/L (19-29); Chloride 109 mEq/L (98-109); Glucose 112 mg/dL (70-99); Osmolality,Calculated 323 (280-300); Sodium 151 mEq/L (136-145); eGFR For African Americans > 60 (> 60); eGFR For Non-African Americans > 60 (> 60)
[2017-08-27 00:52] LABS: Potassium 4.9 mEq/L (3.5-4.5)
[2017-08-27] MEDS: WATER IVPB SCH ×3 (01:43→18:06)
[2017-08-27] MEDS: SULFAMETHOXAZOLE IVPB SCH ×3 (01:43→18:06)
[2017-08-27] MEDS: D5 IVPB SCH ×3 (01:43→18:06)
[2017-08-27] MEDS: TRIMETH IVPB SCH ×3 (01:43→18:06)
[2017-08-27] MEDS: Ipratropium/Albuterol Neb 3 ML IH SCH ×5 (03:56→19:53)
[2017-08-27] MEDS: *HR* Heparin 5,000 UNIT/ML VIAL SQ SCH ×2 (05:04→18:06)
[2017-08-27 05:44] LABS: Red Cell Distribution Width 14.9 % (11.5-14.5)
[2017-08-27 05:46] LABS: Hematocrit 34.5 % (37.5-50.1); Immature Platelets 5.3 % (1.1-6.1); Mean Corpuscular Hemoglobin 28.6 pg (28.0-33.3); Mean Corpuscular Volume 98.6 fL (83.0-100.0); Mean Platelet Volume 11.3 fL (9.4-12.4); Red Blood Count 3.5 M/mcL (4.19-5.50)
[2017-08-27 06:25] LABS: BUN/Creatinine Ratio 30 (6-26); Blood Urea Nitrogen 36 mg/dL (8-26); Calcium 9.3 mg/dL (8.6-10.8); Carbon Dioxide 35 mEq/L (19-29); Chloride 110 mEq/L (98-109); Glucose 154 mg/dL (70-99); Osmolality,Calculated 323 (280-300); Potassium 4.7 mEq/L (3.5-4.5); Sodium 151 mEq/L (136-145); eGFR For African Americans > 60 (> 60); eGFR For Non-African Americans > 60 (> 60)
[2017-08-27] MEDS: Nicotine 14 MG PATCH.TD24 TD SCH (08:26)
[2017-08-27] MEDS: Aspirin 81 MG TAB.CHEW PO SCH (08:27)
[2017-08-27] MEDS: Pantoprazole 40 MG VIAL IVP SCH (08:27)
[2017-08-27] MEDS ORDERED: MethylPREDNISolone 40 MG/ML VIAL IVP SCH (09:00)
--- NOTE | 2017-08-27 09:32 | Pulmonology Progress Note ---
<Edilberto Higuera - Last Filed: 08/27/17 09:30> Date of Encounter: 08/27/17 Time of Encounter: 09:30 Assessment and Plan (1) Septic shock Current Visit: Yes Status: Acute Source most likely from PNA. CXR showed RLL infiltartes/effusion. HR has been well controlled, and MAP >65. - remains slightly confused and resltess - MAP goal >65. - abx: day 4 of bactrim - patient given clonazepam, olanzepine and haldol PRN to reduce agitation - patient to be transferred to med floor today (2) NSTEMI (non-ST elevated myocardial infarction) Current Visit: Yes Status: Acute EKG depression V2-V5 anterolateral NSTEMI. Trops 3.93, 2.46, and 1.38.echo: HFpEF 60-65% - continue ASA81 - cardiology reconsult once patient is stablize enough. waiting for nephro clearance prior to cath'ing - patient's believes patient would be willing to be compliant with anti- coagulation post treatment and anti-platelet for the rest of his life. Will further discuss once patient has returned to mental baseline (3) Acute kidney failure, unspecified Current Visit: Yes Status: Acute Resolved - Nephrology following - Cardio considering cath on renal clearance Qualifiers: Acute renal failure type: unspecified Qualified Code(s): N17.9 - Acute kidney failure, unspecified (4) Sepsis with multi-organ dysfunction Current Visit: Yes Status: Acute Involvement includes Heart, lung, kidney and hypotension. Septic shock source most likely PNA. - ct. abx course - currently resolved (5) Acute hypercapnic respiratory failure Current Visit: Yes Status: Acute ABG - last 7.37 62 93 36 38 97 8. currently resolved - will continue to assess for agitation (6) Acute exacerbation of chronic obstructive airways disease Current Visit: No Status: Acute Patient in the last few weeks stopped his COPD treatments at home as they were no longer working for him. And last week, he stopped using his home oxygen. home O2 4L. - continue PPX abx - O2 goal 88-92% (7) Seizure disorder Current Visit: Yes Status: Acute currently stable on Keppra (8) 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, type II Current Visit: No Status: Acute - continue medium SSI, consider lowering based on BG Qualifiers: 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 complication status: with circulatory complication 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 complication detail: with other circulatory complications 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 technician insulin use: with snf use Qualified Code(s) : E11.59 - Type 2 diabetes mellitus with other circulatory complications; Z79.4 - extermination supervisor (current) use of insulin; Z79.4 - extermination supervisor (current) use of insulin ; Z79.4 - extermination supervisor (current) use of insulin; Z79.4 - extermination supervisor (current) use of insulin (9) Hepatitis C Current Visit: No Status: Acute according to , treated over 2 years ago without complication. denies patient is a current IVDU Qualifiers: Viral hepatitis chronicity: chronic Hepatic coma status: with hepatic coma Qualified Code(s): B18.2 - Chronic viral hepatitis C (10) Obesity (BMI 30-39.9) Current Visit: Yes Status: Acute BMI 32.4. (11) DVT prophylaxis Current Visit: Yes Status: Acute D/C'ed heparin - started on intermittent pneumatic compression (12) Goals of care, counseling/discussion Current Visit: Yes Status: Acute Discussed with , patient's goals for therapy. She states he never had anything written down, but he wished to have everything done to keep him alive. She defaults as health proxy. Sheri Thompson [phone] (13) Elevated liver enzymes Current Visit: Yes Status: Acute AST and ALT in 300-400 range. Patient has a history of liver cirrhosis and hep C which was treated a couple years back according to patient. Patient's denies IVDU. Ammonia levels normal (14) Hyperkalemia Current Visit: Yes Status: Acute hyperK resolved Subjective Principal diagnosis: NSTEMI Interval history: Mr Thompson is a 61 yo male day 6 of admission due to septic shock, NSTEMI, and CELINA. No events overnight. Night nurse reports patient was slightly agitated all night. Today he's appropriately verbally communicating, although difficult to interpret what hes actually saying. Objective PUL Vital signs: Last Vital Signs Temp 98.6 F 08/27/17 08:00 Pulse 79 08/27/17 08:00 Resp 24 08/27/17 08:00 BP 153/67 08/27/17 08:00 Pulse Ox 95 08/27/17 08:00 General appearance: no acute distress, alert, other (remains confused, but is verbally responding more appropriate compared to yesterday.) Eyes: nonicteric Effort: normal Auscultation: bilateral: wheezes (diffuse expiratory wheezing, no change) Cardiovascular: regular rate and rhythm Gastrointestinal: hypoactive bowel sounds Extremities: no cyanosis, no edema, edema (Bilateral LE 0/4 edema) other (remains confused and slightly resltess. A+O x2) Results - Laboratory Findings CBC and BMP: 08/27/17 05:06 08/27/17 05:06 ABG ABG pH 7.37 pH Units (7.32-7.45) 08/25/17 05:24 ABG pCO2 62 mmHg (35-45) H 08/25/17 05:24 ABG pO2 93 mmHg (85-104) 08/25/17 05:24 ABG O2 Saturation 97 % (95-98) 08/25/17 05:24 Abnormal lab findings: Abnormal lab results RBC 3.50 M/mcL (4.19-5.50) L 08/27/17 05:06 Hgb 10.0 g/dL (12.9-16.9) L 08/27/17 05:06 Hct 34.5 % (37.5-50.1) L 08/27/17 05:06 MCHC 29.0 g/dL (31.6-35.5) L 08/27/17 05:06 RDW 14.9 % (11.5-14.5) H 08/27/17 05:06 Plt Count 86 K/mcL (140-400) L 08/27/17 05:06 Neutrophils # 15.3 K/mcL (1.6-8.9) H 08/22/17 05:00 Nucleated RBCs/100 WBC 0.9 /100 WBC (0) H 08/22/17 05:00 Platelet Estimate Decreased (Normal) L 08/21/17 23:15 Polychromasia 1+ (Not Present) A 08/21/17 23:15 Hypochromasia Present (Not Present) A 08/21/17 23:15 Anisocytosis 1+ (Not Present) A 08/21/17 23:15 Macrocytosis Present (Not Present) A 08/21/17 23:15 APTT 105.1 Seconds (26.0-36.0) H 08/24/17 02:21 ABG pCO2 62 mmHg (35-45) H 08/25/17 05:24 ABG HCO3 36 mEq/L (21-27) H 08/25/17 05:24 ABG Total CO2 38 mEq/L (20-26) H 08/25/17 05:24 ABG Base Excess 8 mEq/L (-2 to 3) H 08/25/17 05:24 Sodium 151 mEq/L (136-145) H 08/27/17 05:06 Potassium 4.7 mEq/L (3.5-4.5) H 08/27/17 05:06 Chloride 110 mEq/L (98-109) H 08/27/17 05:06 Carbon Dioxide 35 mEq/L (19-29) H 08/27/17 05:06 BUN 36 mg/dL (8-26) H 08/27/17 05:06 BUN/Creatinine Ratio 30 (6-26) H 08/27/17 05:06 Glucose 154 mg/dL (70-99) H 08/27/17 05:06 POC Glucose 130 (58-89) H 08/27/17 07:10 Hemoglobin A1c 6.5 % (-5.6) H 08/22/17 05:00 Calculated Osmolality 323 (280-300) H 08/27/17 05:06 Phosphorus 10.7 mg/dL (2.3-4.7) H 08/21/17 22:15 Magnesium 2.8 mg/dL (1.6-2.6) H 08/21/17 22:15 AST 295 Units/L (5-34) H 08/22/17 05:00 ALT 393 Units/L (0-55) H 08/22/17 05:00 Troponin I 1.38 ng/mL (0-0.03) H* 08/22/17 17:00 Albumin 2.7 g/dL (3.5-5.0) L 08/22/17 05:00 Albumin/Globulin Ratio 0.8 (1.1-2.2) L 08/22/17 05:00 Urine Clarity Cloudy (Clear) A 08/22/17 08:30 Urine Protein 30 mg/dL (Neg-Trace) H 08/22/17 08:30 Urine Blood Moderate (Negative) H 08/22/17 08:30 Urine Microscopic WBC 5-15 per hpf (0-3) H 08/22/17 08:30 Ur Squamous Epith Cells Many per lpf (None-Few) H 08/22/17 08:30 Urine Opiates Screen Positive ng/mL (Ewvqaj=862) H 08/22/17 02:15 U Benzodiazepines Scrn Positive ng/mL (Uojntk=530) H 08/22/17 02:15 - Clinical Findings Intake & Output: Intake & Output 08/26/17 08/27/17 08/27/17 23:59 07:59 15:59 Intake Total 381.6 / 381.6 330.9 / 330.9 Output Total 1750 / 1750 1050 / 1050 Balance -1368.4 / -1368.4 -719.1 / -719.1 Weight 109.61 kg - VTE Reasons for not Prescribing Prophylaxis: Not indicated-Anticoagulated or INR therapeutic Consult Discharge Plan - Plan [facility]errals: [facility] Care Provider[facility] - <Vibha Fulton - Last Filed: 08/27/17 09:59> Date of Encounter: 08/27/17 Objective PUL Vital signs: Last Vital Signs Temp 98.6 F 08/27/17 08:00 Pulse 79 08/27/17 08:00 Resp 24 08/27/17 08:00 BP 153/67 08/27/17 08:00 Pulse Ox 95 08/27/17 08:00 Results - Laboratory Findings CBC and BMP: 08/27/17 05:06 08/27/17 05:06 ABG ABG pH 7.37 pH Units (7.32-7.45) 08/25/17 05:24 ABG pCO2 62 mmHg (35-45) H 08/25/17 05:24 ABG pO2 93 mmHg (85-104) 08/25/17 05:24 ABG O2 Saturation 97 % (95-98) 08/25/17 05:24 Abnormal lab findings: Abnormal lab results RBC 3.50 M/mcL (4.19-5.50) L 08/27/17 05:06 Hgb 10.0 g/dL (12.9-16.9) L 08/27/17 05:06 Hct 34.5 % (37.5-50.1) L 08/27/17 05:06 MCHC 29.0 g/dL (31.6-35.5) L 08/27/17 05:06 RDW 14.9 % (11.5-14.5) H 08/27/17 05:06 Plt Count 86 K/mcL (140-400) L 08/27/17 05:06 Neutrophils # 15.3 K/mcL (1.6-8.9) H 08/22/17 05:00 Nucleated RBCs/100 WBC 0.9 /100 WBC (0) H 08/22/17 05:00 Platelet Estimate Decreased (Normal) L 08/21/17 23:15 Polychromasia 1+ (Not Present) A 08/21/17 23:15 Hypochromasia Present (Not Present) A 08/21/17 23:15 Anisocytosis 1+ (Not Present) A 08/21/17 23:15 Macrocytosis Present (Not Present) A 08/21/17 23:15 APTT 105.1 Seconds (26.0-36.0) H 08/24/17 02:21 ABG pCO2 62 mmHg (35-45) H 08/25/17 05:24 ABG HCO3 36 mEq/L (21-27) H 08/25/17 05:24 ABG Total CO2 38 mEq/L (20-26) H 08/25/17 05:24 ABG Base Excess 8 mEq/L (-2 to 3) H 08/25/17 05:24 Sodium 151 mEq/L (136-145) H 08/27/17 05:06 Potassium 4.7 mEq/L (3.5-4.5) H 08/27/17 05:06 Chloride 110 mEq/L (98-109) H 08/27/17 05:06 Carbon Dioxide 35 mEq/L (19-29) H 08/27/17 05:06 BUN 36 mg/dL (8-26) H 08/27/17 05:06 BUN/Creatinine Ratio 30 (6-26) H 08/27/17 05:06 Glucose 154 mg/dL (70-99) H 08/27/17 05:06 POC Glucose 130 (58-89) H 08/27/17 07:10 Hemoglobin A1c 6.5 % (-5.6) H 08/22/17 05:00 Calculated Osmolality 323 (280-300) H 08/27/17 05:06 Phosphorus 10.7 mg/dL (2.3-4.7) H 08/21/17 22:15 Magnesium 2.8 mg/dL (1.6-2.6) H 08/21/17 22:15 AST 295 Units/L (5-34) H 08/22/17 05:00 ALT 393 Units/L (0-55) H 08/22/17 05:00 Troponin I 1.38 ng/mL (0-0.03) H* 08/22/17 17:00 Albumin 2.7 g/dL (3.5-5.0) L 08/22/17 05:00 Albumin/Globulin Ratio 0.8 (1.1-2.2) L 08/22/17 05:00 Urine Clarity Cloudy (Clear) A 08/22/17 08:30 Urine Protein 30 mg/dL (Neg-Trace) H 08/22/17 08:30 Urine Blood Moderate (Negative) H 08/22/17 08:30 Urine Microscopic WBC 5-15 per hpf (0-3) H 08/22/17 08:30 Ur Squamous Epith Cells Many per lpf (None-Few) H 08/22/17 08:30 Urine Opiates Screen Positive ng/mL (Legctm=854) H 08/22/17 02:15 U Benzodiazepines Scrn Positive ng/mL (Ahlxkd=280) H 08/22/17 02:15 - Clinical Findings Intake & Output: Intake & Output 08/26/17 08/27/17 08/27/17 23:59 07:59 15:59 Intake Total 381.6 / 381.6 330.9 / 330.9 Output Total 1750 / 1750 1050 / 1050 Balance -1368.4 / -1368.4 -719.1 / -719.1 Weight 109.61 kg - Attending Attestation I examined this patient and my medical decision-making was reviewed with the Resident Physician. I agree with the documented findings, disposition and treatment plan as described except to the extent set forth below. Patient seen and examined. Labs, radiology, chart personally reviewed. Agree with resident's history and physical, assessment, plan with following comments: SENIOR CONTROLLER: Patient follows commands, however he remained agitated. CAT scan will not be reliable close of the movement. Continue psych medication. Patient clinically has improved except for mental status and he does not have evidence suggesting meningitis or encephalitis. I am hoping with time and medication can help his mental status. Another factor delirium and transferring him to the floor with physical therapy hopefully will help. Pulmonary: Acceptable oxygenation and ventilation Cardiovascular: stable GI: Nutrition per dietary and GI prophylaxis per routine Heme: DVT prophylaxis per routine ID: Continue antibiotics and plan to de-escalation Renal; urine out put and renal funtion reviewed Endorcine: blood glucose is monitored Lines: all lines checked and no evidence of infections Skin: skin care to prevent pressure ulcers per nursing routine care Patient can be transferred to [facility]
[2017-08-27] MEDS: Insulin DETEMIR 100 UNIT/ML X5UNITS SQ SCH ×2 (10:26→20:53)
[2017-08-27] MEDS: levETIRAcetam 250 MG in 0.9 % Sodium Chloride 100 ML IVPB SCH ×2 (10:26→20:53)
[2017-08-27] MEDS ORDERED: *HR* Dextrose 50 % in Water (Syg) 50 ML SYRINGE IVP PRN ×2 (14:09→15:13)
[2017-08-27] MEDS ORDERED: *HR* LORazepam 2 MG/ML VIAL IVP PRN ×2 (14:09→15:13)
[2017-08-27] MEDS ORDERED: Naloxone 0.4 MG/ML INJ IVP PRN ×2 (14:09→15:13)
[2017-08-27] MEDS ORDERED: Acetaminophen 650 MG RECTAL SUPP RC PRN ×2 (14:09→15:13)
[2017-08-27] MEDS ORDERED: Dextrose Gel 15 GM PO PRN ×4 (14:09→15:13)
[2017-08-27] MEDS ORDERED: Ondansetron 4 MG/2 ML VIAL IVP PRN ×2 (14:09→15:13)
[2017-08-27] MEDS ORDERED: D5% in Water 1,000 ML IVC PRN ×2 (14:09→15:13)
[2017-08-27] MEDS ORDERED: Haloperidol Lactate 5 MG/ML VIAL IVP PRN ×2 (14:09→15:13)
[2017-08-27] MEDS ORDERED: Acetaminophen 325 MG TABLET PO PRN (14:59)
[2017-08-27] MEDS: Acetaminophen 325 MG TABLET PO PRN (15:45)
[2017-08-27] MEDS ORDERED: Insulin LISPRO 300 UNITS/3 ML VIAL SQ SCH (16:00)
[2017-08-27] MEDS ORDERED: Ipratropium/Albuterol Neb 3 ML IH SCH (16:00)
[2017-08-27] MEDS ORDERED: D5 IVPB SCH (17:00)
[2017-08-27] MEDS ORDERED: WATER IVPB SCH (17:00)
[2017-08-27] MEDS ORDERED: SULFAMETHOXAZOLE IVPB SCH (17:00)
[2017-08-27] MEDS ORDERED: TRIMETH IVPB SCH (17:00)
[2017-08-27] MEDS ORDERED: *HR* Heparin 5,000 UNIT/ML VIAL SQ SCH (18:00)
[2017-08-27] MEDS: *HR* Metoprolol 5 MG/5 ML VIAL IVP PRN (18:49)
[2017-08-27] MEDS ORDERED: OLANZapine 10 MG VIAL IVP SCH (20:00)
[2017-08-27] MEDS: OLANZapine 10 MG VIAL IVP SCH (20:52)
[2017-08-27] MEDS ORDERED: Bisacodyl 10 MG RECTAL SUPPOSITORY RC SCH (21:00)
[2017-08-27] MEDS ORDERED: levETIRAcetam 250 MG in 0.9 % Sodium Chloride 100 ML IVPB SCH (21:00)
[2017-08-27] MEDS ORDERED: Insulin DETEMIR 100 UNIT/ML X5UNITS SQ SCH (21:00)
[2017-08-27] MEDS: Bisacodyl 10 MG RECTAL SUPPOSITORY RC SCH (21:03)
[2017-08-28] MEDS: Ipratropium/Albuterol Neb 3 ML IH SCH ×7 (00:02→23:20)
[2017-08-28] MEDS: WATER IVPB SCH ×3 (01:04→17:48)
[2017-08-28] MEDS: SULFAMETHOXAZOLE IVPB SCH ×3 (01:04→17:48)
[2017-08-28] MEDS: TRIMETH IVPB SCH ×3 (01:04→17:48)
[2017-08-28] MEDS: D5 IVPB SCH ×3 (01:04→17:48)
[2017-08-28] MEDS: Insulin LISPRO 300 UNITS/3 ML VIAL SQ SCH ×6 (01:05→20:19)
[2017-08-28] MEDS: *HR* Metoprolol 5 MG/5 ML VIAL IVP PRN ×2 (01:22→22:18)
[2017-08-28 05:31] LABS: Red Cell Distribution Width 14.6 % (11.5-14.5)
[2017-08-28 05:32] LABS: Immature Platelets 5.1 % (1.1-6.1); Mean Corpuscular HGB Conc 29.7 g/dL (31.6-35.5); Mean Corpuscular Hemoglobin 29.2 pg (28.0-33.3); Mean Corpuscular Volume 98.1 fL (83.0-100.0); Mean Platelet Volume 11.7 fL (9.4-12.4); Red Blood Count 3.77 M/mcL (4.19-5.50)
[2017-08-28 05:42] LABS: BUN/Creatinine Ratio 22 (6-26); Blood Urea Nitrogen 26 mg/dL (8-26); Calcium 8.9 mg/dL (8.6-10.8); Carbon Dioxide 28 mEq/L (19-29); Chloride 108 mEq/L (98-109); Glucose 166 mg/dL (70-99); Osmolality,Calculated 307 (280-300); Potassium 4.5 mEq/L (3.5-4.5); Sodium 144 mEq/L (136-145); eGFR For African Americans > 60 (> 60); eGFR For Non-African Americans > 60 (> 60)
[2017-08-28] MEDS: *HR* Heparin 5,000 UNIT/ML VIAL SQ SCH ×2 (06:06→17:48)
[2017-08-28] MEDS: Aspirin 81 MG TAB.CHEW PO SCH (08:39)
[2017-08-28] MEDS: Insulin DETEMIR 100 UNIT/ML X5UNITS SQ SCH ×2 (08:40→20:17)
[2017-08-28] MEDS: levETIRAcetam 250 MG in 0.9 % Sodium Chloride 100 ML IVPB SCH ×2 (08:40→20:16)
[2017-08-28] MEDS: Nicotine 14 MG PATCH.TD24 TD SCH (08:41)
[2017-08-28] MEDS: MethylPREDNISolone 40 MG/ML VIAL IVP SCH (08:41)
[2017-08-28] MEDS: Pantoprazole 40 MG VIAL IVP SCH (08:41)
[2017-08-28] MEDS ORDERED: MethylPREDNISolone 40 MG/ML VIAL IVP SCH (09:00)
[2017-08-28] MEDS ORDERED: Aspirin 81 MG TAB.CHEW PO SCH (09:00)
[2017-08-28] MEDS ORDERED: Pantoprazole 40 MG VIAL IVP SCH (09:00)
[2017-08-28] MEDS ORDERED: Nicotine 14 MG PATCH.TD24 TD SCH (09:00)
--- NOTE | 2017-08-28 09:40 | Internal Med Progress Note ---
Date of Encounter: 08/28/17 Time of Encounter: 08:55 - Assessment and plan (1) Acute respiratory failure Current Visit: Yes Status: Acute Assessment and plan: secondary to RLL PNA s/p extubation on 08/26/17, currently saturating well on nasal cannula continue IV bactrim (sputum culture positive for Stenotrophomonas Maltophilia) Qualifiers: Respiratory failure complication: hypoxia and hypercapnia Qualified Code(s) : J96.01 - Acute respiratory failure with hypoxia; J96.02 - Acute respiratory failure with hypercapnia; J96.02 - Acute respiratory failure with hypercapnia; J96.02 - Acute respiratory failure with hypercapnia (2) Pneumonia Current Visit: Yes Status: Acute Assessment and plan: plan as listed above Qualifiers: Pneumonia type: due to unspecified organism Laterality: right Lung location: lower lobe of lung Qualified Code(s): J18.1 - Lobar pneumonia, unspecified organism (3) 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, type II Current Visit: No Status: Chronic Assessment and plan: continue sliding scale insulin algorithm monitor FS and BG ADA diet Qualifiers: 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 complication status: with circulatory complication 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 complication detail: with other circulatory complications 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 fdc insulin use: with buttermaker continuous churn use Qualified Code(s) : E11.59 - Type 2 diabetes mellitus with other circulatory complications; Z79.4 - senior care (current) use of insulin; Z79.4 - senior care (current) use of insulin ; Z79.4 - senior care (current) use of insulin; Z79.4 - senior care (current) use of insulin (4) NSTEMI (non-ST elevated myocardial infarction) Current Visit: Yes Status: Acute Assessment and plan: will request follow up from cardiology Initially [facility] was placed on hold due to impaired renal function and altered mental status pt's mentation improved as per records will continue ASA, BB, statin noted to be tachycardic, will increase BB dose as tolerated (5) Septic shock Current Visit: Yes Status: Resolved (6) Hepatitis C Current Visit: No Status: Chronic Qualifiers: Viral hepatitis chronicity: chronic Hepatic coma status: with hepatic coma Qualified Code(s): B18.2 - Chronic viral hepatitis C (7) Obesity (BMI 30-39.9) Current Visit: Yes Status: Chronic (8) DVT prophylaxis Current Visit: Yes Status: Acute Assessment and plan: Heparin SQ (9) Acute exacerbation of chronic obstructive airways disease Current Visit: No Status: Resolved Assessment and plan: Pt was initially found to have acute exacerbation of COPD and was reported to not being compliant with his home medications finished steroid therapy during this hospitalization will continue bronchodilator support O2 supplementation monitor O2 saturation, O2 sat goal: 89-92% (10) Anxiety Current Visit: Yes Status: Acute Assessment and plan: pt has been reported to be agitated requiring Haldol and Olanzapine support - Subjective Interval history: Patient is a 61y/o male admitted to the ICU for acute respiratory failure and septic shock secondary to RLL PNA,NSTEMI, and CELINA. Pt's septic shock has resolved and pt was extubated on 08/26/17. Currently saturating well on nasal cannula. Awaiting bed availability for transfer out of the ICU. Pt seen and examined at bedside. Resting in bed and oriented only to self, which appears to be patient's baseline since hospitalization. Unclear of patient 's baseline mental status prior to hospitalization. Pt was evaluated by cardiology and LHC is recommended however awaiting for any intervention until patient's mentation improves so he is able to be compliant with his home medications. - Constitutional Vitals: Temp Pulse Resp BP Pulse Ox 99.5 F 120 22 166/86 90 08/28/17 08:00 08/28/17 08:54 08/28/17 08:00 08/28/17 08:00 08/28/17 08:00 General appearance: Present: A&O X 1, no acute distress, obese - Head Head exam: Present: atraumatic, normocephalic - Respiratory Respiratory exam: Present: decreased breath sounds. Absent: respiratory distress, wheezes - Cardiovascular Cardiovascular exam: Present: +S1, +S2, tachycardia. Absent: diastolic murmur, systolic murmur - GI/Abdominal GI/Abdominal exam: Present: normal bowel sounds, soft, no peritoneal signs. Absent: distended, tenderness - Extremities Exam Extremities exam: Present: warm, radial pulses palpable and symmetrical. Absent : calf tenderness - Neurological Exam Neurological exam: Present: alert - Psychiatric Psychiatric exam: Present: normal affect, normal mood Internal Medicine: Result - Labs CBC & Chem 7: 08/28/17 04:47 08/28/17 04:47 Labs: Short CBC 08/28/17 Range/Units 04:47 WBC 7.9 D (4.3-11.1) K/mcL Hgb 11.0 L (12.9-16.9) g/dL Hct 37.0 L (37.5-50.1) % Plt Count 88 L (140-400) K/mcL BMP 08/28/17 04:47 Sodium 144 Potassium 4.5 Chloride 108 Carbon Dioxide 28 BUN 26 D Creatinine 1.20 Glucose 166 H Calcium 8.9 Cardiac Enzymes 08/27/17 Range/Units 19:23 Troponin I 0.48 H* (0-0.03) ng/mL - ABG Interpretation ABG results: ABG ABG pH 7.37 pH Units (7.32-7.45) 08/25/17 05:24 ABG pCO2 62 mmHg (35-45) H 08/25/17 05:24 ABG pO2 93 mmHg (85-104) 08/25/17 05:24 ABG O2 Saturation 97 % (95-98) 08/25/17 05:24 - VTE Reasons for not Prescribing Prophylaxis: Not indicated-Anticoagulated or INR therapeutic Consult Discharge Plan - Plan [facility]errals: [facility] [Primary Care Provider] -
--- NOTE | 2017-08-28 10:22 | Event Note ---
Date of Encounter: 08/28/17 Time of Encounter: 10:21 - Cardiology Event Note Cardiology reconsulted--per prior notes, needs LHC once respiratory status and mentation improve. Will re-evaluate tomorrow AM to see if ready for LHC. Will make NPO after midnight tonight.
--- NOTE | 2017-08-28 10:49 | Pulmonology Progress Note ---
<Vibha Fulton M - Last Filed: 08/28/17 11:30> Date of Encounter: 08/28/17 Objective PUL Vital signs: Last Vital Signs Temp 99.5 F 08/28/17 08:00 Pulse 97 08/28/17 10:00 Resp 18 08/28/17 10:00 BP 151/77 08/28/17 10:00 Pulse Ox 90 08/28/17 10:00 Results - Laboratory Findings CBC and BMP: 08/28/17 04:47 08/28/17 04:47 ABG ABG pH 7.37 pH Units (7.32-7.45) 08/25/17 05:24 ABG pCO2 62 mmHg (35-45) H 08/25/17 05:24 ABG pO2 93 mmHg (85-104) 08/25/17 05:24 ABG O2 Saturation 97 % (95-98) 08/25/17 05:24 Abnormal lab findings: Abnormal lab results RBC 3.77 M/mcL (4.19-5.50) L 08/28/17 04:47 Hgb 11.0 g/dL (12.9-16.9) L 08/28/17 04:47 Hct 37.0 % (37.5-50.1) L 08/28/17 04:47 MCHC 29.7 g/dL (31.6-35.5) L 08/28/17 04:47 RDW 14.6 % (11.5-14.5) H 08/28/17 04:47 Plt Count 88 K/mcL (140-400) L 08/28/17 04:47 Neutrophils # 15.3 K/mcL (1.6-8.9) H 08/22/17 05:00 Nucleated RBCs/100 WBC 0.9 /100 WBC (0) H 08/22/17 05:00 Platelet Estimate Decreased (Normal) L 08/21/17 23:15 Polychromasia 1+ (Not Present) A 08/21/17 23:15 Hypochromasia Present (Not Present) A 08/21/17 23:15 Anisocytosis 1+ (Not Present) A 08/21/17 23:15 Macrocytosis Present (Not Present) A 08/21/17 23:15 APTT 105.1 Seconds (26.0-36.0) H 08/24/17 02:21 ABG pCO2 62 mmHg (35-45) H 08/25/17 05:24 ABG HCO3 36 mEq/L (21-27) H 08/25/17 05:24 ABG Total CO2 38 mEq/L (20-26) H 08/25/17 05:24 ABG Base Excess 8 mEq/L (-2 to 3) H 08/25/17 05:24 Glucose 166 mg/dL (70-99) H 08/28/17 04:47 POC Glucose 119 (58-89) H 08/28/17 07:57 Hemoglobin A1c 6.5 % (-5.6) H 08/22/17 05:00 Calculated Osmolality 307 (280-300) H 08/28/17 04:47 Phosphorus 10.7 mg/dL (2.3-4.7) H 08/21/17 22:15 Magnesium 2.8 mg/dL (1.6-2.6) H 08/21/17 22:15 AST 295 Units/L (5-34) H 08/22/17 05:00 ALT 393 Units/L (0-55) H 08/22/17 05:00 Troponin I 0.48 ng/mL (0-0.03) H* 08/27/17 19:23 Albumin 2.7 g/dL (3.5-5.0) L 08/22/17 05:00 Albumin/Globulin Ratio 0.8 (1.1-2.2) L 08/22/17 05:00 Urine Clarity Cloudy (Clear) A 08/22/17 08:30 Urine Protein 30 mg/dL (Neg-Trace) H 08/22/17 08:30 Urine Blood Moderate (Negative) H 08/22/17 08:30 Urine Microscopic WBC 5-15 per hpf (0-3) H 08/22/17 08:30 Ur Squamous Epith Cells Many per lpf (None-Few) H 08/22/17 08:30 Urine Opiates Screen Positive ng/mL (Bmugge=456) H 08/22/17 02:15 U Benzodiazepines Scrn Positive ng/mL (Ntqfjx=817) H 08/22/17 02:15 - Clinical Findings Intake & Output: Intake & Output 08/27/17 08/28/17 08/28/17 23:59 07:59 15:59 Intake Total 1102.5 / 1102.5 160 / 160 240 / 240 Output Total 1050 / 1050 500 / 500 450 / 450 Balance 52.5 / 52.5 -340 / -340 -210 / -210 Weight 108.5 kg Consult Discharge Plan - Plan [facility]errals: [facility]Primary Care Provider[facility] - - Attending Attestation I examined this patient and my medical decision-making was reviewed with the Resident Physician. I agree with the documented findings, disposition and treatment plan as described except to the extent set forth below. Patient seen and examined. Labs, radiology, chart personally reviewed. Agree with resident's history and physical, assessment, plan with following comments: RADIO DIVISION OFFICER: Patient follows commands, his agitation seems to be better. Pulmonary: Acceptable oxygenation and ventilation. Keep head of bed elevated. BiPAP when necessary. Cardiovascular: stable . Cardiology follow-up. GI: Nutrition per dietary and GI prophylaxis per routine Heme: DVT prophylaxis per routine ID: Continue antibiotics and plan to de-escalation Renal; urine out put and renal funtion reviewed Endorcine: blood glucose is monitored Lines: all lines checked and no evidence of infections Skin: skin care to prevent pressure ulcers per nursing routine care Patient remained stable to be transferred to the floor and waiting for a bed. <Kervin Nolanus Manzano - Last Filed: 08/29/17 16:22> Date of Encounter: 08/29/17 Time of Encounter: 10:46 Assessment and Plan (1) Acute hypercapnic respiratory failure Current Visit: Yes Status: Acute Acute on chronic. He has compensated acid/base. We will place on BiPAP if needed. (2) Sepsis with multi-organ dysfunction Current Visit: Yes Status: Acute Source most likely from PNA. CXR showed RLL infiltartes/effusion. HR has been well controlled, and MAP >65. abx: day 6 of bactrim Patient has not required medication for agitation last night or today. Remains confused, oriented to self. patient to be transferred to med floor today (3) NSTEMI (non-ST elevated myocardial infarction) Current Visit: Yes Status: Acute EKG depression V2-V5 anterolateral NSTEMI. Trops 3.93, 2.46, and 1.38.echo: HFpEF 60-65% continue ASA81 Needs LHC once mentation improves. Medicine will re-evaluate tomorrow AM to see if ready for LHC. (4) Acute kidney failure, unspecified Current Visit: Yes Status: Acute Resolved. Cr 1.20, BUN 26, GFR >60 Qualifiers: Acute renal failure type: unspecified Qualified Code(s): N17.9 - Acute kidney failure, unspecified (5) 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, type II Current Visit: No Status: Chronic continue medium SSI, consider lowering based on BG Qualifiers: 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 complication status: with circulatory complication 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 complication detail: with other circulatory complications 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 ferry terminal agent insulin use: with half-way use Qualified Code(s) : E11.59 - Type 2 diabetes mellitus with other circulatory complications; Z79.4 - MCFP (current) use of insulin; Z79.4 - terminal gauger (current) use of insulin ; Z79.4 - terminal gauger (current) use of insulin; Z79.4 - terminal gauger (current) use of insulin (6) Elevated liver enzymes Current Visit: Yes Status: Acute AST and ALT in 300-400 range. Patient has a history of liver cirrhosis and hep C which was treated a couple years back according to patient. Patient's denies IVDU. Ammonia levels normal (7) DVT prophylaxis Current Visit: Yes Status: Acute started on intermittent pneumatic compression (8) Goals of care, counseling/discussion Current Visit: Yes Status: Acute Discussed with , patient's goals for therapy. She states he never had anything written down, but he wished to have everything done to keep him alive. She defaults as health proxy. Sheri Thompson [phone] Subjective Principal diagnosis: NSTEMI Interval history: Mr Thompson is a 61 yo male day 7 of admission due to septic shock, NSTEMI, and CELINA. No events overnight, patient hasnot required medication for agitation last night or today. Today he's appropriately verbally communicating and oriented to self. Objective PUL Vital signs: Last Vital Signs Temp 99.5 F 08/28/17 08:00 Pulse 97 08/28/17 10:00 Resp 18 08/28/17 10:00 BP 151/77 08/28/17 10:00 Pulse Ox 90 08/28/17 10:00 General appearance: no acute distress, alert Eyes: nonicteric ENT: oropharynx moist Neck: supple Effort: normal Auscultation: bilateral: clear Cardiovascular: regular rate and rhythm Gastrointestinal: normoactive bowel sounds, soft, non-tender, non-distended Integumentary: normal Extremities: no cyanosis, no edema, pink and warm, pulses normal, no ischemia or petechiae Musculoskeletal: no deformities non-focal exam, pupils equal and round, CN II-XII normal, motor strength normal and symmetric, other (Patient oriented to self. ) mood appropriate, affect normal Results - Laboratory Findings CBC and BMP: 08/29/17 03:02 08/29/17 03:02 ABG ABG pH 7.37 pH Units (7.32-7.45) 08/25/17 05:24 ABG pCO2 62 mmHg (35-45) H 08/25/17 05:24 ABG pO2 93 mmHg (85-104) 08/25/17 05:24 ABG O2 Saturation 97 % (95-98) 08/25/17 05:24 Abnormal lab findings: Abnormal lab results RBC 3.77 M/mcL (4.19-5.50) L 08/28/17 04:47 Hgb 11.0 g/dL (12.9-16.9) L 08/28/17 04:47 Hct 37.0 % (37.5-50.1) L 08/28/17 04:47 MCHC 29.7 g/dL (31.6-35.5) L 08/28/17 04:47 RDW 14.6 % (11.5-14.5) H 08/28/17 04:47 Plt Count 88 K/mcL (140-400) L 08/28/17 04:47 Neutrophils # 15.3 K/mcL (1.6-8.9) H 08/22/17 05:00 Nucleated RBCs/100 WBC 0.9 /100 WBC (0) H 08/22/17 05:00 Platelet Estimate Decreased (Normal) L 08/21/17 23:15 Polychromasia 1+ (Not Present) A 08/21/17 23:15 Hypochromasia Present (Not Present) A 08/21/17 23:15 Anisocytosis 1+ (Not Present) A 08/21/17 23:15 Macrocytosis Present (Not Present) A 08/21/17 23:15 APTT 105.1 Seconds (26.0-36.0) H 08/24/17 02:21 ABG pCO2 62 mmHg (35-45) H 08/25/17 05:24 ABG HCO3 36 mEq/L (21-27) H 08/25/17 05:24 ABG Total CO2 38 mEq/L (20-26) H 08/25/17 05:24 ABG Base Excess 8 mEq/L (-2 to 3) H 08/25/17 05:24 Glucose 166 mg/dL (70-99) H 08/28/17 04:47 POC Glucose 119 (58-89) H 08/28/17 07:57 Hemoglobin A1c 6.5 % (-5.6) H 08/22/17 05:00 Calculated Osmolality 307 (280-300) H 08/28/17 04:47 Phosphorus 10.7 mg/dL (2.3-4.7) H 08/21/17 22:15 Magnesium 2.8 mg/dL (1.6-2.6) H 08/21/17 22:15 AST 295 Units/L (5-34) H 08/22/17 05:00 ALT 393 Units/L (0-55) H 08/22/17 05:00 Troponin I 0.48 ng/mL (0-0.03) H* 08/27/17 19:23 Albumin 2.7 g/dL (3.5-5.0) L 08/22/17 05:00 Albumin/Globulin Ratio 0.8 (1.1-2.2) L 08/22/17 05:00 Urine Clarity Cloudy (Clear) A 08/22/17 08:30 Urine Protein 30 mg/dL (Neg-Trace) H 08/22/17 08:30 Urine Blood Moderate (Negative) H 08/22/17 08:30 Urine Microscopic WBC 5-15 per hpf (0-3) H 08/22/17 08:30 Ur Squamous Epith Cells Many per lpf (None-Few) H 08/22/17 08:30 Urine Opiates Screen Positive ng/mL (Mkcaws=535) H 08/22/17 02:15 U Benzodiazepines Scrn Positive ng/mL (Gvvrgn=930) H 08/22/17 02:15 - Clinical Findings Intake & Output: Intake & Output 08/27/17 08/28/17 08/28/17 23:59 07:59 15:59 Intake Total 1102.5 / 1102.5 160 / 160 240 / 240 Output Total 1050 / 1050 500 / 500 450 / 450 Balance 52.5 / 52.5 -340 / -340 -210 / -210 Weight 108.5 kg - VTE Reasons for not Prescribing Prophylaxis: Not indicated-Anticoagulated or INR therapeutic
--- NOTE | 2017-08-28 11:26 | Electrocardiograph Report ---
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
[2017-08-28] MEDS: Acetaminophen 325 MG TABLET PO PRN (12:12)
--- NOTE | 2017-08-28 12:19 | Electrocardiograph Report ---
[address] [place], [place] [address] Test Date: 2017-08-27 Pat Name: Bhavesh Thompson Department: 109 Room: [facility] Gender: M Java Sybase Developer: ALISON : 1955 Requested By: Luis Kline Order Number: [id number] Reading MD: Jed Landry MD Measurements Intervals [place] Rate: 117 P: 44 TN: 135 QRS: 49 QRSD: 96 T: -19 QT: 280 QTc: 349 Interpretive Statements SINUS TACHYCARDIA ANTERIOR ISCHEMIA Electronically Signed On 08-28-2017 12:16:52 EDT by Jed Landry MD
[2017-08-28] MEDS: Bisacodyl 10 MG RECTAL SUPPOSITORY RC SCH (20:17)
[2017-08-28] MEDS: OLANZapine 10 MG VIAL IVP SCH (20:18)
[2017-08-29] MEDS: Insulin LISPRO 300 UNITS/3 ML VIAL SQ SCH ×5 (00:07→17:44)
[2017-08-29] MEDS: WATER IVPB SCH ×2 (01:12→20:14)
[2017-08-29] MEDS: TRIMETH IVPB SCH ×2 (01:12→20:14)
[2017-08-29] MEDS: SULFAMETHOXAZOLE IVPB SCH ×2 (01:12→20:14)
[2017-08-29] MEDS: D5 IVPB SCH ×2 (01:12→20:14)
[2017-08-29 03:15] LABS: Immature Granulocytes % 0.4 % (0-4); Red Cell Distribution Width 14.2 % (11.5-14.5)
[2017-08-29 03:17] LABS: Eosinophils # 0.2 K/mcL (0.0-0.6); Eosinophils % 2.6 %; Hematocrit 33.8 % (37.5-50.1); Hemoglobin 10.2 g/dL (12.9-16.9); Immature Platelets 6.5 % (1.1-6.1); Lymphocytes # 1.2 K/mcL (0.6-4.6); Lymphocytes % 15.7 %; Mean Corpuscular HGB Conc 30.2 g/dL (31.6-35.5); Mean Corpuscular Hemoglobin 29.1 pg (28.0-33.3); Mean Corpuscular Volume 96.3 fL (83.0-100.0); Mean Platelet Volume 11.7 fL (9.4-12.4); Monocytes # 0.4 K/mcL (0.0-1.3); Monocytes % 5.5 %; Neutrophils # 5.9 K/mcL (1.6-8.9); Red Blood Count 3.51 M/mcL (4.19-5.50); Segmented Neutrophils % 75.8 %
[2017-08-29 03:20] LABS: Platelet Count 85 K/mcL (140-400)
[2017-08-29 03:27] LABS: BUN/Creatinine Ratio 21 (6-26); Blood Urea Nitrogen 24 mg/dL (8-26); Calcium 8.7 mg/dL (8.6-10.8); Carbon Dioxide 28 mEq/L (19-29); Chloride 106 mEq/L (98-109); Glucose 114 mg/dL (70-99); Magnesium 1.1 mg/dL (1.6-2.6); Osmolality,Calculated 297 (280-300); Phosphorous 3.4 mg/dL (2.3-4.7); Potassium 4.3 mEq/L (3.5-4.5); Sodium 141 mEq/L (136-145); eGFR For African Americans > 60 (> 60); eGFR For Non-African Americans > 60 (> 60)
[2017-08-29] MEDS: Ipratropium/Albuterol Neb 3 ML IH SCH ×7 (03:51→23:55)
[2017-08-29] MEDS: *HR* Heparin 5,000 UNIT/ML VIAL SQ SCH ×2 (05:45→17:43)
[2017-08-29] MEDS: *HR* Metoprolol 5 MG/5 ML VIAL IVP PRN (06:00)
[2017-08-29] MEDS: Aspirin 81 MG TAB.CHEW PO SCH (10:09)
[2017-08-29 10:10] LABS: ABG Base Excess 5 mEq/L (-2 to 3); ABG HCO3 31 mEq/L (21-27); ABG Oxygen Saturation 95 % (95-98); ABG PCO2 53 mmHg (35-45); ABG PH 7.38 pH Units (7.32-7.45); ABG PO2 80 mmHg (85-104); ABG TCO2 33 mEq/L (20-26)
[2017-08-29] MEDS: Insulin DETEMIR 100 UNIT/ML X5UNITS SQ SCH ×2 (10:10→21:26)
[2017-08-29] MEDS: levETIRAcetam 250 MG in 0.9 % Sodium Chloride 100 ML IVPB SCH ×2 (10:10→21:28)
[2017-08-29] MEDS: Pantoprazole 40 MG VIAL IVP SCH (10:12)
[2017-08-29] MEDS: MethylPREDNISolone 40 MG/ML VIAL IVP SCH (10:12)
[2017-08-29] MEDS: Nicotine 14 MG PATCH.TD24 TD SCH (10:14)
--- NOTE | 2017-08-29 11:14 | Cardiology Consult Note ---
Date of Encounter: 08/29/17 Time of Encounter: 09:30 Assessment and Plan (1) NSTEMI (non-ST elevated myocardial infarction) Current Visit: Yes Status: Acute Patient is a 61 yo male with PMHx of non-compliant COPD, type 2 diabetes, tobacco use, CHF, hepatitis C who presented altered, dypsneic, and in septic shock (currently resolved). EKG was independently read and demonstrates ST depressions on Leads V3, V4, V5 when compared to Mar, 2017. Troponins are downtrending 0.48<1.38<2.46<3.93<4.69. Limited Echo demonstrates EF 60-65% with dilated and hypokinetic right ventricle, atypical septal wall motion. Patient has multiple risk factors for CAD(male, uncontrolled type 2 diabetes, history of smoking, HTN, hyperlipedemia). The patient is easily agitated and confused, but unknown baseline mentation. Recommend Nephrology consult. We recommend [facility] when patient is more alert and can provide consent. He has been non-compliant with home mediations and we would like to make sure that he will be compliant with anticoagulation at home. We will continue to follow-up on mental status improvement to obtain consent for catheterization. (2) Septic shock Current Visit: Yes Status: Resolved Resolved. The patient presented with clinical picture of septic shock with leukocytosis, tachycardia, tachypnea, and hypotensive. He is currently off sedation and extubated. His vitals are stable. Continue antibiotics, IVF. Pressor support as needed. Manage per ICU. (3) Acute kidney failure, unspecified Current Visit: Yes Status: Acute Resolved. Patient has clinical picture of acute kidney injury in the setting of septic shock, respiratory failure, and NSTEMI. Kidney function has markedly improved and back to baseline. Continue to monitor kidney function. Manage per nephrology. Qualifiers: Acute renal failure type: unspecified Qualified Code(s): N17.9 - Acute kidney failure, unspecified (4) Acute hypercapnic respiratory failure Current Visit: Yes Status: Acute Improved. He was extubated last Tuesday and vital signs are currently stable. Continue steroids, Duonebs, Bactrim. Manage per ICU. (5) 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, type II Current Visit: No Status: Chronic HbA1c = 6.5. Hyperglycemia in the setting of history of uncontrolled diabetes mellitus type II. SSI for hyperglycemic control during inpatient admission. Continue to monitor with POC glucose and a.m. labs. Qualifiers: 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 complication status: with circulatory complication 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 complication detail: with other circulatory complications 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 emt intermediate insulin use: with emt intermediate use Qualified Code(s) : E11.59 - Type 2 diabetes mellitus with other circulatory complications; Z79.4 - extermination supervisor (current) use of insulin; Z79.4 - extermination supervisor (current) use of insulin ; Z79.4 - correction (current) use of insulin; Z79.4 - correction (current) use of insulin (6) Hyperkalemia Current Visit: Yes Status: Acute Resolved. Continue to monitor with a.m. labs. (7) Hepatitis C Current Visit: No Status: Chronic Patient has history of hepatitis C. LFTs are elevated. Avoid hepatotoxins if possible. Continue to monitor with a.m. labs. Qualifiers: Viral hepatitis chronicity: chronic Hepatic coma status: with hepatic coma Qualified Code(s): B18.2 - Chronic viral hepatitis C (8) DVT prophylaxis Current Visit: Yes Status: Acute Heparin is discontinued and patient is started on intermittent pneumatic compression. Discussion w patient/family: The assessment and plan as outlined above was discussed with the patient and/or family members who expressed understanding and agreement. All questions were answered. Thank you for involving us in the care of your patient. Please call with any questions. History of Present Illness Consult date: 08/28/17 Consult reason: NSTEMI Chief complaint: altered mental status and shortness of breath History of present illness: Mr. Thompson is a 61 year old male with PMHx of COPD non-compliant CPAP use, CHF, tobacco use, Diabetes, Hepatitis C presented to ICU intubated from [place] ED secondary to AMS and shortness of breath. Patient continues to be altered and HPI is obtained through medical records. Per H&P, stated that patient has had similar episodes due to non-compliance with CPAP at home. He was initially on BiPap at [place] but ABG revealed worsening respiratory acidosis with pCO2 108, lactic acid 2.5, Troponin 4.69, potassium was 6.1, and creatinine 13.13, and patient was intubated. Upon arrival to EMS at [place], the patient received Versed for agitation, he was hypotensive despite 2L bolus. A right femoral CVC was placed and levophed was administered. Repeat EKG demonstrated worsening ST depressions in leads V3, V4, and V5 with T wave inversions when compared to EKG from Mar, 2017, when he presented for shortness of breath. An echo was performed at that visit with EF 60% and normal wall function. Latest Echo on 08/22/17 demonstrates no significant changes except right ventricle appeared dilated and hypokinetic. Patient was extubated last Tuesday, creatinine has returned to baseline, and patient is stable in pulmonary and nephrology standpoints. He remains confused but baseline mentation unknown. visits him in the afternoons. Past Med Surg Social Fam HX - Past Medical History Medical history: cirrhosis, CHF, COPD, coronary artery disease, diabetes, hepatitis (C), hyperlipidemia, hypertension, liver disease Psychiatric history: anxiety, depression - Past Surgical History Surgical History: cholecystectomy, orthopedic, other (ankle), other - Social History Smoking Status: Current every day smoker (1PPD) Smokeless Tobacco Status: No Alcohol use: none Drug use: none, other - Family History Mother History Unknown: Yes Living Status: Still Living Hx Family Endocrine Disorder: Yes (DM) Father Living Status: Still Living Hx Family Cardiac Disorders: Yes ([place], CABG) Hx Family Endocrine Disorder: Yes (DM) Medications and Allergies Aspirin 81 mg PO DAILY 03/15/16 [History] Cholecalciferol (Vitamin D3) [Vitamin D3] 1,000 unit PO BID 03/15/16 [History] Insulin NPH/REG 70/30 (HUMAN) [Humulin 70/30 Vial] 10 unit SQ QPM 03/15/16 [ History] Insulin NPH/REG 70/30 (HUMAN) [Humulin 70/30 Vial] 12 unit SQ QAM 03/15/16 [ History] Magnesium 400 mg PO BID 03/15/16 [History] Budesonide/Formoterol 80/4.5 [Symbicort 80/4.5] 2 puff IH BIDR #2 inhaler 03/17 [Rx] Cyanocobalamin (Vitamin B-12) [Vitamin B12] 1,000 mcg PO BID 04/03/17 [History] Loratadine [Allergy Relief] 10 mg PO DAILY 04/03/17 [History] Omeprazole 20 mg PO DAILY 04/03/17 [History] Tiotropium [Spiriva] 18 mcg IH DAILY 04/03/17 [History] levETIRAcetam [Keppra] 250 mg PO BID 04/03/17 [History] Albuterol Sulfate [Ventolin Hfa] 1 puff IH Q4H PRN 04/04/17 [History] Aripiprazole [Abilify] 7.5 mg PO QAM 04/04/17 [History] Bisacodyl [Dulcolax] 5 mg PO DAILY PRN 04/04/17 [History] Lactulose 10 gm PO DAILY PRN 04/04/17 [History] Multivitamin-Min/Iron/FA/Vit K [Multi-Day Plus Minerals Tablet] 1 each PO DAILY 04/04/17 [History] Simvastatin [Zocor] 20 mg PO HS 04/04/17 [History] Oxycodone HCl/Acetaminophen [Percocet 5-325 mg Tablet] 1 tab PO Q8H PRN [History] 3 Allergy/AdvReac Type Severity Reaction Status Date / Time No Known Allergies Allergy Verified 03/15/16 17:09 ROS unobtainable: due to endotracheal tube, due to mental status All Systems Review: A 10-system review of systems was performed and is negative for pertinent findings except as documented above in the HPI. Physical Examination Vital Signs, Last 4 Hours Temp Pulse Resp BP Pulse Ox 08/29/17 08:30 105 25 176/82 93 08/29/17 08:00 105 24 180/90 94 08/29/17 07:51 98.5 F 08/29/17 07:37 18 93 08/29/17 07:30 104 General: Other (Easily agitated. Responds to verbal commands but does not provide verbal feedback.) HEENT: Atraumatic, Normocephaly, Mucus Membranes Moist Neck: No JVD, Normal carotid pulses Cardiac: Reg Rate and Rhythm, Normal S1 and S2, No Murmur Lungs: Normal Breath Sounds, No Wheeze, Rales, Rhonchi Neuro: No focal deficits noted, Other (Responds to verbal commands but is confused. ) Abdomen: Soft, Non-Tender Skin: No rashes noted on visualized skin Musculoskeletal: No Chest Wall Tenderness Extremities: No Clubbing, No Cyanosis, Normal Pulses, Other (2+ LE edema bilaterally. ) Results 08/29/17 03:02 08/29/17 03:02 Lab Results 08/29/17 08/29/17 03:02 03:02 WBC 7.8 Hgb 10.2 L Hct 33.8 L Plt Count 85 L Sodium 141 Potassium 4.3 Chloride 106 Carbon Dioxide 28 BUN 24 Creatinine 1.14 Glucose 114 H Calcium 8.7 Magnesium 1.1 L Consult Discharge Plan - Plan [facility]errals: [facility] [Primary Care Provider] -
[2017-08-29] MEDS: Sulfamethoxazole/Trimeth 30 ML in D5% in Water 500 ML IVPB SCH ×2 (11:36→18:27)
--- NOTE | 2017-08-29 13:43 | Pulmonology Progress Note ---
<Filemon Nolan - Last Filed: 08/29/17 14:45> Date of Encounter: 08/29/17 Time of Encounter: 13:19 Assessment and Plan (1) Altered mental status Current Visit: Yes Status: Acute Patient has not required medication for agitation, he did experience pain and restlessness this AM and was given Ativan. We have ordered PRN pain medication that patient takes as home medication. Remains confused but with improvement he orients to self and time. Converses with his . Answers questions appropriately Head CT due to changes in mental status overtime, this was negative. EEG in progress. hx of seizure disorder and was difficult to arouse this morning Steroids stopped. Ativan discontinued. Home PRN pain medications ordered (2) Sepsis with multi-organ dysfunction Current Visit: Yes Status: Acute Source most likely from PNA. CXR showed RLL infiltartes/effusion. HR has been well controlled, and MAP >65. abx: day 7 of bactrim. Bactrim dosing was changed to therapeutic dosing. Culture + for stenotrophomonas maltophilia Patient ready to be transferred off floor (3) NSTEMI (non-ST elevated myocardial infarction) Current Visit: Yes Status: Acute EKG depression V2-V5 anterolateral NSTEMI. Trops 3.93, 2.46, and 1.38.echo: HFpEF 60-65% continue [id number] Needs LHC once mentation improves. Cardiology will wait to perform LHC when patient is more alert and can provide consent. Also would like to insure patient is capable of being compliant with home medications since has hx of noncompliance. Cardiology discussed patient has RV dysfunction and could be due to PE. Ordered CTA chest. (4) 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, type II Current Visit: No Status: Chronic continue medium SSI, consider lowering based on BG Qualifiers: 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 complication status: with circulatory complication 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 complication detail: with other circulatory complications 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 tank terminal gauger insulin use: with retirement use Qualified Code(s) : E11.59 - Type 2 diabetes mellitus with other circulatory complications; Z79.4 - terminal carman (current) use of insulin; Z79.4 - terminal carman (current) use of insulin ; Z79.4 - assisted (current) use of insulin; Z79.4 - assisted (current) use of insulin (5) Elevated liver enzymes Current Visit: Yes Status: Acute AST and ALT in 300-400 range. Patient has a history of liver cirrhosis and hep C which was treated a couple years back according to patient. Patient's denies IVDU. Ammonia levels normal (6) DVT prophylaxis Current Visit: Yes Status: Acute started on intermittent pneumatic compression (7) Goals of care, counseling/discussion Current Visit: Yes Status: Acute Discussed with , patient's goals for therapy. She states he never had anything written down, but he wished to have everything done to keep him alive. She defaults as health proxy. Sheri Thompson [phone] Subjective Principal diagnosis: NSTEMI Interval history: Mr Thompson is a 61 yo male day 7 of admission due to septic shock, NSTEMI, and CELINA. No events overnight, patient has not required medication for agitation last night or today. Patient was having discomfort this morning which is his chronic low back pain and was given ativan. Patient states he normally takes Perc 5's TID at home for this pain. Will discontinue the ativan today and write for perc 5 TID. Today he's appropriately verbally communicating and oriented to self and time. Objective PUL Vital signs: Last Vital Signs Temp 98.4 F 08/29/17 12:14 Pulse 105 08/29/17 08:30 Resp 16 08/29/17 12:29 BP 176/82 08/29/17 08:30 Pulse Ox 93 08/29/17 12:29 General appearance: no acute distress, alert Eyes: nonicteric ENT: oropharynx moist Neck: supple Effort: normal Auscultation: bilateral: clear Cardiovascular: regular rate and rhythm Gastrointestinal: normoactive bowel sounds, soft, non-tender, non-distended Integumentary: normal Extremities: no cyanosis, no edema, no clubbing, pink and warm Musculoskeletal: no deformities pupils equal and round, other (Patient alert and oriented to person and place today. He is sitting in bed, tolerating PO and having conversation with . ) mood appropriate, affect normal Results - Laboratory Findings CBC and BMP: 08/29/17 03:02 08/29/17 03:02 ABG ABG pH 7.38 pH Units (7.32-7.45) 08/29/17 10:07 ABG pCO2 53 mmHg (35-45) H 08/29/17 10:07 ABG pO2 80 mmHg (85-104) L 08/29/17 10:07 ABG O2 Saturation 95 % (95-98) 08/29/17 10:07 Abnormal lab findings: Abnormal lab results RBC 3.51 M/mcL (4.19-5.50) L 08/29/17 03:02 Hgb 10.2 g/dL (12.9-16.9) L 08/29/17 03:02 Hct 33.8 % (37.5-50.1) L 08/29/17 03:02 MCHC 30.2 g/dL (31.6-35.5) L 08/29/17 03:02 Plt Count 85 K/mcL (140-400) L 08/29/17 03:02 Nucleated RBCs/100 WBC 0.9 /100 WBC (0) H 08/22/17 05:00 Platelet Estimate Decreased (Normal) L 08/21/17 23:15 Immature Plt Fraction 6.5 % (1.1-6.1) H 08/29/17 03:02 Polychromasia 1+ (Not Present) A 08/21/17 23:15 Hypochromasia Present (Not Present) A 08/21/17 23:15 Anisocytosis 1+ (Not Present) A 08/21/17 23:15 Macrocytosis Present (Not Present) A 08/21/17 23:15 APTT 105.1 Seconds (26.0-36.0) H 08/24/17 02:21 ABG pCO2 53 mmHg (35-45) H 08/29/17 10:07 ABG pO2 80 mmHg (85-104) L 08/29/17 10:07 ABG HCO3 31 mEq/L (21-27) H 08/29/17 10:07 ABG Total CO2 33 mEq/L (20-26) H 08/29/17 10:07 ABG Base Excess 5 mEq/L (-2 to 3) H 08/29/17 10:07 Glucose 114 mg/dL (70-99) H 08/29/17 03:02 POC Glucose 167 (58-89) H 08/29/17 12:11 Hemoglobin A1c 6.5 % (-5.6) H 08/22/17 05:00 Magnesium 1.1 mg/dL (1.6-2.6) L 08/29/17 03:02 AST 295 Units/L (5-34) H 08/22/17 05:00 ALT 393 Units/L (0-55) H 08/22/17 05:00 Troponin I 0.48 ng/mL (0-0.03) H* 08/27/17 19:23 Albumin 2.7 g/dL (3.5-5.0) L 08/22/17 05:00 Albumin/Globulin Ratio 0.8 (1.1-2.2) L 08/22/17 05:00 Urine Clarity Cloudy (Clear) A 08/22/17 08:30 Urine Protein 30 mg/dL (Neg-Trace) H 08/22/17 08:30 Urine Blood Moderate (Negative) H 08/22/17 08:30 Urine Microscopic WBC 5-15 per hpf (0-3) H 08/22/17 08:30 Ur Squamous Epith Cells Many per lpf (None-Few) H 08/22/17 08:30 Urine Opiates Screen Positive ng/mL (Algnzy=453) H 08/22/17 02:15 U Benzodiazepines Scrn Positive ng/mL (Ifriol=119) H 08/22/17 02:15 - Clinical Findings Intake & Output: Intake & Output 08/28/17 08/29/17 08/29/17 23:59 07:59 15:59 Intake Total 502.5 / 502.5 160 / 160 Output Total 850 / 850 1400 / 1400 550 / 550 Balance -347.5 / -347.5 -1240 / -1240 -550 / -550 Weight 104.8 kg - VTE Reasons for not Prescribing Prophylaxis: Not indicated-Anticoagulated or INR therapeutic Consult Discharge Plan - Plan [facility] Care Provider[facility] - <Willa Martin - Last Filed: 08/29/17 16:48> Date of Encounter: 08/29/17 Objective PUL Vital signs: Last Vital Signs Temp 98.4 F 08/29/17 12:14 Pulse 76 08/29/17 14:00 Resp 18 08/29/17 14:00 BP 141/67 08/29/17 14:00 Pulse Ox 90 08/29/17 14:00 Results - Laboratory Findings CBC and BMP: 08/29/17 03:02 08/29/17 03:02 ABG ABG pH 7.38 pH Units (7.32-7.45) 08/29/17 10:07 ABG pCO2 53 mmHg (35-45) H 08/29/17 10:07 ABG pO2 80 mmHg (85-104) L 08/29/17 10:07 ABG O2 Saturation 95 % (95-98) 08/29/17 10:07 Abnormal lab findings: Abnormal lab results RBC 3.51 M/mcL (4.19-5.50) L 08/29/17 03:02 Hgb 10.2 g/dL (12.9-16.9) L 08/29/17 03:02 Hct 33.8 % (37.5-50.1) L 08/29/17 03:02 MCHC 30.2 g/dL (31.6-35.5) L 08/29/17 03:02 Plt Count 85 K/mcL (140-400) L 08/29/17 03:02 Nucleated RBCs/100 WBC 0.9 /100 WBC (0) H 08/22/17 05:00 Platelet Estimate Decreased (Normal) L 08/21/17 23:15 Immature Plt Fraction 6.5 % (1.1-6.1) H 08/29/17 03:02 Polychromasia 1+ (Not Present) A 08/21/17 23:15 Hypochromasia Present (Not Present) A 08/21/17 23:15 Anisocytosis 1+ (Not Present) A 08/21/17 23:15 Macrocytosis Present (Not Present) A 08/21/17 23:15 APTT 105.1 Seconds (26.0-36.0) H 08/24/17 02:21 ABG pCO2 53 mmHg (35-45) H 08/29/17 10:07 ABG pO2 80 mmHg (85-104) L 08/29/17 10:07 ABG HCO3 31 mEq/L (21-27) H 08/29/17 10:07 ABG Total CO2 33 mEq/L (20-26) H 08/29/17 10:07 ABG Base Excess 5 mEq/L (-2 to 3) H 08/29/17 10:07 Glucose 114 mg/dL (70-99) H 08/29/17 03:02 POC Glucose 167 (58-89) H 08/29/17 12:11 Hemoglobin A1c 6.5 % (-5.6) H 08/22/17 05:00 Magnesium 1.1 mg/dL (1.6-2.6) L 08/29/17 03:02 AST 295 Units/L (5-34) H 08/22/17 05:00 ALT 393 Units/L (0-55) H 08/22/17 05:00 Troponin I 0.48 ng/mL (0-0.03) H* 08/27/17 19:23 Albumin 2.7 g/dL (3.5-5.0) L 08/22/17 05:00 Albumin/Globulin Ratio 0.8 (1.1-2.2) L 08/22/17 05:00 Urine Clarity Cloudy (Clear) A 08/22/17 08:30 Urine Protein 30 mg/dL (Neg-Trace) H 08/22/17 08:30 Urine Blood Moderate (Negative) H 08/22/17 08:30 Urine Microscopic WBC 5-15 per hpf (0-3) H 08/22/17 08:30 Ur Squamous Epith Cells Many per lpf (None-Few) H 08/22/17 08:30 Urine Opiates Screen Positive ng/mL (Tundbu=430) H 08/22/17 02:15 U Benzodiazepines Scrn Positive ng/mL (Tzatjq=810) H 08/22/17 02:15 - Clinical Findings Intake & Output: Intake & Output 08/28/17 08/29/17 08/29/17 23:59 07:59 15:59 Intake Total 502.5 / 502.5 160 / 160 Output Total 850 / 850 1400 / 1400 550 / 550 Balance -347.5 / -347.5 -1240 / -1240 -550 / -550 Weight 104.8 kg - Attending Attestation I saw the patient with the resident agree with History and Physical exam findings. Labs and Radiology were reviewed BILINGUAL MANAGER: Patient is conscious oriented x2 following commands on and off episodic drowsiness most likely due to metabolic encephalopathy Vs Medication induced there is no focal neurological deficit will get CT scan and EEG. NECK : No JVD appreciated Pulmonary : Patient gas exchange adequate he has chronic hypercapnic respiratory failure . Cardiac : Hemodynamically stable , NSTEMI , patient has new onset right ventricular systolic dysfunction which was not seen in previously with troponin leak it is reasonable to rule out PE will CTA Nutrition/GI: Patient is on cardiac diabetic diet . Renal : Stable , Patient is negative 3 litres will give 1 liter before contrast Heme onc : No acute issues ID : Sputum is growing stenotrophomonas maltophilia adjusted the dose of bactrim IV Musculo skeletal / skin issues : No issues Disposition : Trnasfer to 2N because of his waxing and waning clinical course Code status: Full Code Family/POA: Had a discussion with .
[2017-08-29] MEDS ORDERED: 0.9 % Sodium Chloride 1,000 ML IVC ONE (14:36)
[2017-08-29] MEDS: *HR* OxyCODONE/APAP 5/325 TABLET PO PRN ×2 (16:04→23:48)
--- NOTE | 2017-08-29 16:48 | Neurology - Consult Note ---
<Jason Casiano - Last Filed: 08/29/17 16:50> Date of Encounter: 08/29/17 Time of Encounter: 15:50 Assessment and Plan (1) Delirium Current Visit: Yes Status: Acute Acute encephalopathy that is likely multifactoral in nature. He has multiple reasons to be encephalopathic: he was septic at presentation, uremic, NSTEMI, and CO2 narcosis. He has been in the ICU for over a week now. Patient seen today and is oriented at this time, but there are reports of waxing and waning confusion that is more consistent with a delirium picture. Imaging did not show anything acute. Seizure activity is less likely, but will evaluate for. There are no focal findings on exam that would suggest a vascular incident. Will evaluate EEG If normal, recommend continuing current course of treatment as per his primary team and cardiology History of Present Illness Chief complaint: Septic Shock, NSTEMI HPI: Mr. Thompson is a 61 year old male with liver cirrhosis from hep C, CHF, COPD, diabetes, and prior seizure disorder who was admitted on 08/21 due to difficulty breathing. He was acutely encephalopathic and in septic shock, had a NSTEMI, and was in acute renal failure. He was intubated and under the care of the ICU. Cardiology and nephrology were both assisting in evaluation of him. Over the days he was here his troponin began trending downwards and he had normalization of his ARF. Unfortunately, he was continuing to have waxing and waning confusion. This encephalopathy was grossly improving, but he was continuing to have periods of confusion. At presentation to the hospital, there were several things contributing to his potentially altered mental stautus, including CO2 narcosis, sepsis, NSTEMI, acute renal failure with uremia, and now could possible have ICU delirium. When seen today, he was alert and oriented x3, but was unable to contribute to his history as he has no recollection of the previous few days. Past Med Surg Social Fam HX - Past Medical History Medical history: cirrhosis, CHF, COPD, coronary artery disease, diabetes, hepatitis (C), hyperlipidemia, hypertension, liver disease Psychiatric history: anxiety, depression - Past Surgical History Surgical History: cholecystectomy, orthopedic, other (ankle), other - Social History Smoking Status: Current every day smoker (1PPD) Smokeless Tobacco Status: No Alcohol use: none Drug use: none, other - Family History Mother History Unknown: Yes Living Status: Still Living Hx Family Endocrine Disorder: Yes (DM) Father Living Status: Still Living Hx Family Cardiac Disorders: Yes (MA, CABG) Hx Family Endocrine Disorder: Yes (DM) Medications and Allergies Aspirin 81 mg PO DAILY 03/15/16 [History] Cholecalciferol (Vitamin D3) [Vitamin D3] 1,000 unit PO BID 03/15/16 [History] Insulin NPH/REG 70/30 (HUMAN) [Humulin 70/30 Vial] 10 unit SQ QPM 03/15/16 [ History] Insulin NPH/REG 70/30 (HUMAN) [Humulin 70/30 Vial] 12 unit SQ QAM 03/15/16 [ History] Magnesium 400 mg PO BID 03/15/16 [History] Budesonide/Formoterol 80/4.5 [Symbicort 80/4.5] 2 puff IH BIDR #2 inhaler 03/17 [Rx] Cyanocobalamin (Vitamin B-12) [Vitamin B12] 1,000 mcg PO BID 04/03/17 [History] Loratadine [Allergy Relief] 10 mg PO DAILY 04/03/17 [History] Omeprazole 20 mg PO DAILY 04/03/17 [History] Tiotropium [Spiriva] 18 mcg IH DAILY 04/03/17 [History] levETIRAcetam [Keppra] 250 mg PO BID 04/03/17 [History] Albuterol Sulfate [Ventolin Hfa] 1 puff IH Q4H PRN 04/04/17 [History] Aripiprazole [Abilify] 7.5 mg PO QAM 04/04/17 [History] Bisacodyl [Dulcolax] 5 mg PO DAILY PRN 04/04/17 [History] Lactulose 10 gm PO DAILY PRN 04/04/17 [History] Multivitamin-Min/Iron/FA/Vit K [Multi-Day Plus Minerals Tablet] 1 each PO DAILY 04/04/17 [History] Simvastatin [Zocor] 20 mg PO HS 04/04/17 [History] Oxycodone HCl/Acetaminophen [Percocet 5-325 mg Tablet] 1 tab PO Q8H PRN [History] 3 Allergy/AdvReac Type Severity Reaction Status Date / Time No Known Allergies Allergy Verified 03/15/16 17:09 ROS unobtainable: due to mental status Physical Examination - Vital Signs Vital Signs: Initial Vital Signs Temp Pulse Resp BP Pulse Ox 97.3 F L 62 14 84/45 100 08/21/17 21:30 08/21/17 21:30 08/21/17 21:30 08/21/17 21:30 08/21/17 21:30 - Exam Exam: Neuro: intention tremor present - Constitutional General appearance: comfortable - Neurologic Sensorimotor examination: intact Detailed motor examination: grossly full strength in all extremities Detailed sensory examination: intact Reflex and gait examination: intact Mental Status Examination: awake, alert, oriented to person, oriented to place, oriented to time, follows commands appropriately, answers questions appropriately, no aphasia, no aproxia Cranial nerve examination: PERRL, EOMI, visual villasenor intact, sensory to face intact, no facial asymmetry is present, hearing is intact symmetrically, tongue protrudes midline Results - Laboratory Findings CBC and BMP: 08/29/17 03:02 08/29/17 03:02 Abnormal lab findings: Abnormal lab results RBC 3.51 M/mcL (4.19-5.50) L 08/29/17 03:02 Hgb 10.2 g/dL (12.9-16.9) L 08/29/17 03:02 Hct 33.8 % (37.5-50.1) L 08/29/17 03:02 MCHC 30.2 g/dL (31.6-35.5) L 08/29/17 03:02 Plt Count 85 K/mcL (140-400) L 08/29/17 03:02 Nucleated RBCs/100 WBC 0.9 /100 WBC (0) H 08/22/17 05:00 Platelet Estimate Decreased (Normal) L 08/21/17 23:15 Immature Plt Fraction 6.5 % (1.1-6.1) H 08/29/17 03:02 Polychromasia 1+ (Not Present) A 08/21/17 23:15 Hypochromasia Present (Not Present) A 08/21/17 23:15 Anisocytosis 1+ (Not Present) A 08/21/17 23:15 Macrocytosis Present (Not Present) A 08/21/17 23:15 APTT 105.1 Seconds (26.0-36.0) H 08/24/17 02:21 ABG pCO2 53 mmHg (35-45) H 08/29/17 10:07 ABG pO2 80 mmHg (85-104) L 08/29/17 10:07 ABG HCO3 31 mEq/L (21-27) H 08/29/17 10:07 ABG Total CO2 33 mEq/L (20-26) H 08/29/17 10:07 ABG Base Excess 5 mEq/L (-2 to 3) H 08/29/17 10:07 Glucose 114 mg/dL (70-99) H 08/29/17 03:02 POC Glucose 186 (58-89) H 08/29/17 15:54 Hemoglobin A1c 6.5 % (-5.6) H 08/22/17 05:00 Magnesium 1.1 mg/dL (1.6-2.6) L 08/29/17 03:02 AST 295 Units/L (5-34) H 08/22/17 05:00 ALT 393 Units/L (0-55) H 08/22/17 05:00 Troponin I 0.48 ng/mL (0-0.03) H* 08/27/17 19:23 Albumin 2.7 g/dL (3.5-5.0) L 08/22/17 05:00 Albumin/Globulin Ratio 0.8 (1.1-2.2) L 08/22/17 05:00 Urine Clarity Cloudy (Clear) A 08/22/17 08:30 Urine Protein 30 mg/dL (Neg-Trace) H 08/22/17 08:30 Urine Blood Moderate (Negative) H 08/22/17 08:30 Urine Microscopic WBC 5-15 per hpf (0-3) H 08/22/17 08:30 Ur Squamous Epith Cells Many per lpf (None-Few) H 08/22/17 08:30 Urine Opiates Screen Positive ng/mL (Psukkr=666) H 08/22/17 02:15 U Benzodiazepines Scrn Positive ng/mL (Ojablk=478) H 08/22/17 02:15 Consult Discharge Plan - Plan [facility]errals: [facility]Primary Care Provider[facility] - <Andre Dove - Last Filed: 08/29/17 17:04> Date of Encounter: 08/29/17 Assessment and Plan (1) Delirium Current Visit: Yes Status: Acute I agree with Dr. Casiano's assessment as dictated above. Patient has multiple different etiologies to be considered which are likely contributing to his waxing and waning mental status. However there is no evidence of a central nervous system infectious, inflammatory, vascular process. I will review the EEG and further comments and recommendations. I will reevaluate him at your request. History of Present Illness HPI: Chart was reviewed, the patient was seen and examined independently. I agree with Dr. Casiano's history as stated above. All Systems: A 10-system review of systems was performed and is negative for pertinent findings except as documented above in the HPI. Physical Examination - Vital Signs Vital Signs: Initial Vital Signs Temp Pulse Resp BP Pulse Ox 97.3 F L 62 14 84/45 100 08/21/17 21:30 08/21/17 21:30 08/21/17 21:30 08/21/17 21:30 08/21/17 21:30 - Exam Exam: Patient was seen and examined independently. I agree with Dr. Casiano's neurologic examination as documented. Results - Laboratory Findings CBC and BMP: 08/29/17 03:02 08/29/17 03:02 Abnormal lab findings: Abnormal lab results RBC 3.51 M/mcL (4.19-5.50) L 08/29/17 03:02 Hgb 10.2 g/dL (12.9-16.9) L 08/29/17 03:02 Hct 33.8 % (37.5-50.1) L 08/29/17 03:02 MCHC 30.2 g/dL (31.6-35.5) L 08/29/17 03:02 Plt Count 85 K/mcL (140-400) L 08/29/17 03:02 Nucleated RBCs/100 WBC 0.9 /100 WBC (0) H 08/22/17 05:00 Platelet Estimate Decreased (Normal) L 08/21/17 23:15 Immature Plt Fraction 6.5 % (1.1-6.1) H 08/29/17 03:02 Polychromasia 1+ (Not Present) A 08/21/17 23:15 Hypochromasia Present (Not Present) A 08/21/17 23:15 Anisocytosis 1+ (Not Present) A 08/21/17 23:15 Macrocytosis Present (Not Present) A 08/21/17 23:15 APTT 105.1 Seconds (26.0-36.0) H 08/24/17 02:21 ABG pCO2 53 mmHg (35-45) H 08/29/17 10:07 ABG pO2 80 mmHg (85-104) L 08/29/17 10:07 ABG HCO3 31 mEq/L (21-27) H 08/29/17 10:07 ABG Total CO2 33 mEq/L (20-26) H 08/29/17 10:07 ABG Base Excess 5 mEq/L (-2 to 3) H 08/29/17 10:07 Glucose 114 mg/dL (70-99) H 08/29/17 03:02 POC Glucose 186 (58-89) H 08/29/17 15:54 Hemoglobin A1c 6.5 % (-5.6) H 08/22/17 05:00 Magnesium 1.1 mg/dL (1.6-2.6) L 08/29/17 03:02 AST 295 Units/L (5-34) H 08/22/17 05:00 ALT 393 Units/L (0-55) H 08/22/17 05:00 Troponin I 0.48 ng/mL (0-0.03) H* 08/27/17 19:23 Albumin 2.7 g/dL (3.5-5.0) L 08/22/17 05:00 Albumin/Globulin Ratio 0.8 (1.1-2.2) L 08/22/17 05:00 Urine Clarity Cloudy (Clear) A 08/22/17 08:30 Urine Protein 30 mg/dL (Neg-Trace) H 08/22/17 08:30 Urine Blood Moderate (Negative) H 08/22/17 08:30 Urine Microscopic WBC 5-15 per hpf (0-3) H 08/22/17 08:30 Ur Squamous Epith Cells Many per lpf (None-Few) H 08/22/17 08:30 Urine Opiates Screen Positive ng/mL (Kybcns=132) H 08/22/17 02:15 U Benzodiazepines Scrn Positive ng/mL (Ufjjui=156) H 08/22/17 02:15
--- NOTE | 2017-08-29 18:30 | EEG/EMG/Oth Biometrics Report ---
EEG Procedure Report Date of procedure: 08/29/17 EEG Procedure: Routine EEG Procedure Note: This is a report of a 21 channel bipolar and referential montage EEG. The posterior dominant rhythm contains mixed beta as well as alpha frequencies. This rhythm is not reactive to eye opening. Hyperventilation is not performed during recording. Periods of drowsiness and stage II sleep were identified as reference by dropout of the posterior dominant rhythm, and the emergence of K complexes and sleep spindles. Photic stimulation performed and produces a symmetric driving response. The EKG rhythm strip reveals normal sinus rhythm at 78 bpm. Impressions: This EEG recording was within normal limits. There is no evidence of epileptiform activity identified during the study. Comment: A normal EEG does not preclude a diagnosis of seizure or epilepsy. If the clinical suspicion for seizure activitiy is high, serial EEGs or perhaps a prolonged recording may increase the yield. Please correlate clinically.
[2017-08-29] MEDS ORDERED: Water for inj. (sterile) 10 ML IV ONE (21:24)
[2017-08-29] MEDS: OLANZapine 10 MG VIAL IVP SCH (21:26)
[2017-08-29] MEDS: Bisacodyl 10 MG RECTAL SUPPOSITORY RC SCH (21:26)
[2017-08-29] MEDS: Lacri-Lube 3.5 GM TUBE BOTH EYES SCH (21:56)
[2017-08-30] MEDS: Ipratropium/Albuterol Neb 3 ML IH SCH ×6 (03:50→23:42)
[2017-08-30] MEDS: Sulfamethoxazole/Trimeth 30 ML in D5% in Water 500 ML IVPB SCH ×3 (04:26→20:44)
[2017-08-30] MEDS: *HR* Heparin 5,000 UNIT/ML VIAL SQ SCH ×2 (05:19→18:30)
[2017-08-30] MEDS ORDERED: Furosemide 40 MG/4 ML VIAL IVP ONE (07:25)
[2017-08-30] MEDS: Insulin LISPRO 300 UNITS/3 ML VIAL SQ SCH ×4 (07:49→20:45)
[2017-08-30] MEDS: *HR* OxyCODONE/APAP 5/325 TABLET PO PRN ×3 (08:01→23:55)
[2017-08-30] MEDS: Pantoprazole 40 MG VIAL IVP SCH (08:01)
[2017-08-30] MEDS: Nicotine 14 MG PATCH.TD24 TD SCH (08:02)
[2017-08-30] MEDS: Aspirin 81 MG TAB.CHEW PO SCH (08:02)
[2017-08-30] MEDS ORDERED: Calcium Gluconate 1,000 MG in D5% in Water 100 ML IVPB PRN (08:05)
[2017-08-30] MEDS ORDERED: Potassium Phosphate 44 MEQ in 0.9 % Sodium Chloride 250 ML IVPB PRN (08:05)
--- NOTE | 2017-08-30 08:24 | Pulmonology Progress Note ---
<Filemon Nolan - Last Filed: 08/30/17 16:20> Date of Encounter: 08/30/17 Time of Encounter: 08:22 Assessment and Plan (1) Altered mental status Current Visit: Yes Status: Acute Patient has not required medication for agitation, he did experience pain and restlessness this AM and was given Ativan. We have ordered PRN pain medication that patient takes as home medication. Remains confused but with improvement he orients to self and time. Converses with his . Answers questions appropriately Head CT due to changes in mental status overtime - showed acute process with diffuse atrophic changes suggesting microvascular ischemia Patient would benefit from outpatient EEG for waxing and waning mental status which is not new according to Steroids stopped. Ativan discontinued. Home PRN pain medications ordered PT/OT consulted. Qualifiers: Altered mental status type: disorientation Qualified Code(s): R41.0 - Disorientation, unspecified (2) Sepsis with multi-organ dysfunction Current Visit: Yes Status: Acute Source most likely from PNA. CXR showed RLL infiltartes/effusion. HR has been well controlled, and MAP >65. abx: day 5 of bactrim will continue for total of 7 days. Patient has not required medication for agitation last night or today. Remains confused, oriented to self. patient to be transferred to med floor when available (3) NSTEMI (non-ST elevated myocardial infarction) Current Visit: Yes Status: Acute EKG depression V2-V5 anterolateral NSTEMI. Trops 3.93, 2.46, and 1.38.echo: HFpEF 60-65% continue [id number] Needs LHC once mentation improves. Cardiology will wait to perform LHC when patient is more alert and can provide consent. Also would like to insure patient is capable of being compliant with home medications since has hx of noncompliance. Cardiology discussed patient has RV dysfunction thought possibly due to PE. Ordered CTA chest: negative for PE. (4) Elevated liver enzymes Current Visit: Yes Status: Acute AST and ALT in 300-400 range. Patient has a history of liver cirrhosis and hep C which was treated a couple years back according to patient. Patient's denies IVDU. Ammonia levels normal Patient -2.3 L yesterday. Patient started on Lasix today. Will monitor urine output. Will eventulaly start spironolactone. Hold for now due to patient good UOP. Patient on electrolyte protocol. Statin Held due to elevated LFTs, will recheck today. (5) Acute hypercapnic respiratory failure Current Visit: Yes Status: Acute Acute on chronic. He has compensated acid/base. We will place on BiPAP if needed. (6) 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, type II Current Visit: No Status: Chronic continue medium SSI, will add night coverage. Qualifiers: 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 complication status: with circulatory complication 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 complication detail: with other circulatory complications 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 intermodal dispatcher insulin use: with intermodal dispatcher use Qualified Code(s) : E11.59 - Type 2 diabetes mellitus with other circulatory complications; Z79.4 - long-term (current) use of insulin; Z79.4 - long-term (current) use of insulin ; Z79.4 - long-term (current) use of insulin; Z79.4 - long-term (current) use of insulin (7) Acute kidney failure, unspecified Current Visit: Yes Status: Acute Resolved. Qualifiers: Acute renal failure type: unspecified Qualified Code(s): N17.9 - Acute kidney failure, unspecified (8) DVT prophylaxis Current Visit: Yes Status: Acute Patient is on heparin. (9) Goals of care, counseling/discussion Current Visit: Yes Status: Acute Discussed with , patient's goals for therapy. She states he never had anything written down, but he wished to have everything done to keep him alive. She defaults as health proxy. Sheri Thompson [phone] Subjective Principal diagnosis: NSTEMI Interval history: Mr Thompson is a 61 yo male day 7 of admission due to septic shock, NSTEMI, and CELINA. No events overnight, patient has not required medication for agitation last night or today. Today he's appropriately verbally communicating AOx3. patient is on Day 5 of Bactrim. Objective PUL Vital signs: Last Vital Signs Temp 97.8 F 08/30/17 07:20 Pulse 67 08/30/17 06:02 Resp 21 08/30/17 06:02 BP 153/71 08/30/17 06:02 Pulse Ox 93 08/30/17 06:02 General appearance: no acute distress, alert Eyes: nonicteric Neck: supple Effort: normal Percussion: bilateral: not dull Cardiovascular: irregular rhythm Gastrointestinal: normoactive bowel sounds Integumentary: normal Extremities: no cyanosis Musculoskeletal: no deformities normal mental status, non-focal exam, pupils equal and round, motor strength normal and symmetric Results - Laboratory Findings CBC and BMP: 08/30/17 09:22 08/30/17 09:22 ABG ABG pH 7.38 pH Units (7.32-7.45) 08/29/17 10:07 ABG pCO2 53 mmHg (35-45) H 08/29/17 10:07 ABG pO2 80 mmHg (85-104) L 08/29/17 10:07 ABG O2 Saturation 95 % (95-98) 08/29/17 10:07 Abnormal lab findings: Abnormal lab results RBC 3.51 M/mcL (4.19-5.50) L 08/29/17 03:02 Hgb 10.2 g/dL (12.9-16.9) L 08/29/17 03:02 Hct 33.8 % (37.5-50.1) L 08/29/17 03:02 MCHC 30.2 g/dL (31.6-35.5) L 08/29/17 03:02 Plt Count 85 K/mcL (140-400) L 08/29/17 03:02 Nucleated RBCs/100 WBC 0.9 /100 WBC (0) H 08/22/17 05:00 Platelet Estimate Decreased (Normal) L 08/21/17 23:15 Immature Plt Fraction 6.5 % (1.1-6.1) H 08/29/17 03:02 Polychromasia 1+ (Not Present) A 08/21/17 23:15 Hypochromasia Present (Not Present) A 08/21/17 23:15 Anisocytosis 1+ (Not Present) A 08/21/17 23:15 Macrocytosis Present (Not Present) A 08/21/17 23:15 APTT 105.1 Seconds (26.0-36.0) H 08/24/17 02:21 ABG pCO2 53 mmHg (35-45) H 08/29/17 10:07 ABG pO2 80 mmHg (85-104) L 08/29/17 10:07 ABG HCO3 31 mEq/L (21-27) H 08/29/17 10:07 ABG Total CO2 33 mEq/L (20-26) H 08/29/17 10:07 ABG Base Excess 5 mEq/L (-2 to 3) H 08/29/17 10:07 Glucose 114 mg/dL (70-99) H 08/29/17 03:02 POC Glucose 126 (58-89) H 08/30/17 07:05 Hemoglobin A1c 6.5 % (-5.6) H 08/22/17 05:00 Magnesium 1.1 mg/dL (1.6-2.6) L 08/29/17 03:02 AST 295 Units/L (5-34) H 08/22/17 05:00 ALT 393 Units/L (0-55) H 08/22/17 05:00 Troponin I 0.48 ng/mL (0-0.03) H* 08/27/17 19:23 Albumin 2.7 g/dL (3.5-5.0) L 08/22/17 05:00 Albumin/Globulin Ratio 0.8 (1.1-2.2) L 08/22/17 05:00 Urine Clarity Cloudy (Clear) A 08/22/17 08:30 Urine Protein 30 mg/dL (Neg-Trace) H 08/22/17 08:30 Urine Blood Moderate (Negative) H 08/22/17 08:30 Urine Microscopic WBC 5-15 per hpf (0-3) H 08/22/17 08:30 Ur Squamous Epith Cells Many per lpf (None-Few) H 08/22/17 08:30 Urine Opiates Screen Positive ng/mL (Dsqshp=954) H 08/22/17 02:15 U Benzodiazepines Scrn Positive ng/mL (Zappfr=207) H 08/22/17 02:15 - Microbiology Findings Microbiology Findings: Microbiology, Last 48 Hours 08/29/17 03:02 Blood Culture - Preliminary Peripheral Venipuncture No growth. - Clinical Findings Intake & Output: Intake & Output 08/29/17 08/30/17 08/30/17 23:59 07:59 15:59 Intake Total 632.5 / 632.5 Output Total 1750 / 1750 1000 / 1000 Balance -1117.5 / -1117.5 -1000 / -1000 - VTE Reasons for not Prescribing Prophylaxis: Not indicated-Anticoagulated or INR therapeutic Consult Discharge Plan - Plan [facility]errals: [facility]Primary Care Provider[facility] - <Willa Martin S - Last Filed: 08/30/17 18:07> Date of Encounter: 08/30/17 Objective PUL Vital signs: Last Vital Signs Temp 98.7 F 08/30/17 16:12 Pulse 71 08/30/17 16:00 Resp 18 08/30/17 16:00 BP 154/76 08/30/17 16:00 Pulse Ox 99 08/30/17 16:00 Results - Laboratory Findings CBC and BMP: 08/30/17 09:22 08/30/17 09:22 ABG ABG pH 7.38 pH Units (7.32-7.45) 08/29/17 10:07 ABG pCO2 53 mmHg (35-45) H 08/29/17 10:07 ABG pO2 80 mmHg (85-104) L 08/29/17 10:07 ABG O2 Saturation 95 % (95-98) 08/29/17 10:07 Abnormal lab findings: Abnormal lab results RBC 3.92 M/mcL (4.19-5.50) L 08/30/17 09:22 Hgb 11.3 g/dL (12.9-16.9) L 08/30/17 09:22 MCHC 30.1 g/dL (31.6-35.5) L 08/30/17 09:22 Plt Count 96 K/mcL (140-400) L 08/30/17 09:22 Nucleated RBCs/100 WBC 0.9 /100 WBC (0) H 08/22/17 05:00 Platelet Estimate Decreased (Normal) L 08/21/17 23:15 Immature Plt Fraction 7.6 % (1.1-6.1) H 08/30/17 09:22 Polychromasia 1+ (Not Present) A 08/21/17 23:15 Hypochromasia Present (Not Present) A 08/21/17 23:15 Anisocytosis 1+ (Not Present) A 08/21/17 23:15 Macrocytosis Present (Not Present) A 08/21/17 23:15 APTT 105.1 Seconds (26.0-36.0) H 08/24/17 02:21 ABG pCO2 53 mmHg (35-45) H 08/29/17 10:07 ABG pO2 80 mmHg (85-104) L 08/29/17 10:07 ABG HCO3 31 mEq/L (21-27) H 08/29/17 10:07 ABG Total CO2 33 mEq/L (20-26) H 08/29/17 10:07 ABG Base Excess 5 mEq/L (-2 to 3) H 08/29/17 10:07 Carbon Dioxide 32 mEq/L (19-29) H 08/30/17 09:22 Creatinine 1.34 mg/dL (0.72-1.25) H 08/30/17 09:22 Est GFR (Non-Af Amer) 54 (> 60) L 08/30/17 09:22 Glucose 127 mg/dL (70-99) H 08/30/17 09:22 POC Glucose 159 (58-89) H 08/30/17 15:11 Hemoglobin A1c 6.5 % (-5.6) H 08/22/17 05:00 Magnesium 1.3 mg/dL (1.6-2.6) L 08/30/17 09:22 AST 44 Units/L (5-34) H 08/30/17 09:22 ALT 70 Units/L (0-55) H 08/30/17 09:22 Troponin I 0.48 ng/mL (0-0.03) H* 08/27/17 19:23 Albumin 3.3 g/dL (3.5-5.0) L 08/30/17 09:22 Albumin/Globulin Ratio 1.0 (1.1-2.2) L 08/30/17 09:22 Urine Clarity Cloudy (Clear) A 08/22/17 08:30 Urine Protein 30 mg/dL (Neg-Trace) H 08/22/17 08:30 Urine Blood Moderate (Negative) H 08/22/17 08:30 Urine Microscopic WBC 5-15 per hpf (0-3) H 08/22/17 08:30 Ur Squamous Epith Cells Many per lpf (None-Few) H 08/22/17 08:30 Urine Opiates Screen Positive ng/mL (Lrfonp=498) H 08/22/17 02:15 U Benzodiazepines Scrn Positive ng/mL (Rcbyzb=163) H 08/22/17 02:15 - Microbiology Findings Microbiology Findings: Microbiology, Last 48 Hours 08/29/17 03:02 Blood Culture - Preliminary Peripheral Venipuncture No growth. - Clinical Findings Intake & Output: Intake & Output 08/30/17 08/30/17 08/30/17 07:59 15:59 23:59 Intake Total 1284 / 1284 120 / 120 Output Total 1000 / 1000 750 / 750 400 / 400 Balance -1000 / -1000 534 / 534 -280 / -280 - Attending Attestation I saw the patient with the resident agree with History and Physical exam findings. 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 Neurology following. NECK : No JVD appreciated Pulmonary : Patient gas exchange adequate he has chronic hypercapnic respiratory failure . To continue O2 supplementation hypoxia secondary RLL atelectasis with pleural effusion with nella hepatic ascites , patient is diuresing well Cardiac : Hemodynamically stable , NSTEMI , patient has new onset right ventricular systolic dysfunction concern for PE CTA didnt show any evidence of pulmonary embolism . Patient will be going for Cath during this hospital stay Nutrition/GI: Patient is on cardiac diabetic diet . Renal : Stable , Patient is negative 3 litres , creatinine stable , goal of 24 hrs is to keep 1.5 to 2.0 liter negative Heme onc : No acute issues , thrombocytopenia stable sepsis , patient has some cirrhosis with some portal hypertension. Hematology evaluation for thrombocytopenia as requested by cardiology. ID : Sputum is growing stenotrophomonas maltophilia adjusted the dose of bactrim IV will finish with 2 more days of antibiotics Musculo skeletal / skin issues : No issues Disposition : Transfer to because of his waxing and waning clinical course. Report was called to the hospitalist they are going to see the patient tomorrow. Code status: Full Code Family/POA: Had a discussion with .
[2017-08-30] MEDS: levETIRAcetam 250 MG in 0.9 % Sodium Chloride 100 ML IVPB SCH (09:00)
[2017-08-30] MEDS ORDERED: Spironolactone 25 MG TABLET PO SCH (09:00)
[2017-08-30] MEDS: Insulin DETEMIR 100 UNIT/ML X5UNITS SQ SCH ×2 (09:01→20:45)
[2017-08-30 09:45] LABS: Ionized Calcium 1.2 mmol/L (1.15-1.35)
[2017-08-30 09:47] LABS: Immature Granulocytes % 0.4 % (0-4); Red Cell Distribution Width 14.2 % (11.5-14.5)
[2017-08-30 09:49] LABS: Eosinophils # 0.2 K/mcL (0.0-0.6); Eosinophils % 2.5 %; Hematocrit 37.6 % (37.5-50.1); Hemoglobin 11.3 g/dL (12.9-16.9); Immature Platelets 7.6 % (1.1-6.1); Lymphocytes # 1.1 K/mcL (0.6-4.6); Lymphocytes % 15.9 %; Mean Corpuscular HGB Conc 30.1 g/dL (31.6-35.5); Mean Corpuscular Hemoglobin 28.8 pg (28.0-33.3); Mean Corpuscular Volume 95.9 fL (83.0-100.0); Mean Platelet Volume 11.5 fL (9.4-12.4); Monocytes # 0.4 K/mcL (0.0-1.3); Monocytes % 5.3 %; Neutrophils # 5.5 K/mcL (1.6-8.9); Red Blood Count 3.92 M/mcL (4.19-5.50); Segmented Neutrophils % 75.9 %
[2017-08-30 09:51] LABS: Platelet Count 96 K/mcL (140-400)
[2017-08-30 10:28] LABS: BUN/Creatinine Ratio 14 (6-26); Blood Urea Nitrogen 19 mg/dL (8-26); Calcium 9.3 mg/dL (8.6-10.8); Carbon Dioxide 32 mEq/L (19-29); Chloride 101 mEq/L (98-109); Glucose 127 mg/dL (70-99); Osmolality,Calculated 292 (280-300); Sodium 139 mEq/L (136-145); eGFR For African Americans > 60 (> 60); eGFR For Non-African Americans 54 (> 60)
[2017-08-30 10:29] LABS: Magnesium 1.3 mg/dL (1.6-2.6); Phosphorous 3.8 mg/dL (2.3-4.7)
--- NOTE | 2017-08-30 11:14 | Cardiology Progress Note ---
Date of Encounter: 08/30/17 Time of Encounter: 08:45 Assessment and Plan (1) NSTEMI (non-ST elevated myocardial infarction) Current Visit: Yes Status: Acute Patient is a 61 yo male with PMHx of non-compliant COPD, type 2 diabetes, tobacco use, CHF, hepatitis C who presented altered, dypsneic, and in septic shock (currently resolved). EKG was independently read and demonstrates ST depressions on Leads V3, V4, V5 when compared to Mar, 2017. Troponins are downtrending 0.48<1.38<2.46<3.93<4.69. Limited Echo demonstrates EF 60-65% with dilated and hypokinetic right ventricle, atypical septal wall motion. Patient has multiple risk factors for CAD(male, uncontrolled type 2 diabetes, history of smoking, HTN, hyperlipedemia). His mentation is improved today. EEG negative. Neurology believes his mentation is consistent with delirium. Patient informed of risk and benefits of LHC and that he would need to be on half-way anticoagulation. Patient reports he would like to speak with before deciding with the catheterization. (2) Thrombocytopenia Current Visit: Yes Status: Acute The patient has downtrending platelet count. Hemonc consult appreciated before decision to perform catheterization. (3) Septic shock Current Visit: Yes Status: Resolved Resolved. The patient presented with clinical picture of septic shock with leukocytosis, tachycardia, tachypnea, and hypotensive. He is currently off sedation and extubated. His vitals are stable. Continue antibiotics, IVF. (4) Acute kidney failure, unspecified Current Visit: Yes Status: Acute Resolved. Patient has clinical picture of acute kidney injury in the setting of septic shock, respiratory failure, and NSTEMI. Kidney function has markedly improved and back to baseline. Continue to monitor kidney function. Manage per nephrology. Qualifiers: Acute renal failure type: unspecified Qualified Code(s): N17.9 - Acute kidney failure, unspecified (5) Acute hypercapnic respiratory failure Current Visit: Yes Status: Acute Improved. He was extubated last Tuesday and vital signs are currently stable. Continue steroids, Duonebs, Bactrim. (6) 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, type II Current Visit: No Status: Chronic HbA1c = 6.5. Hyperglycemia in the setting of history of uncontrolled diabetes mellitus type II. SSI for hyperglycemic control during inpatient admission. Continue to monitor with POC glucose and a.m. labs. Qualifiers: 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 complication status: with circulatory complication 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 complication detail: with other circulatory complications 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 terminal system operator insulin use: with half-way use Qualified Code(s) : E11.59 - Type 2 diabetes mellitus with other circulatory complications; Z79.4 - local company intermodal truck driver (current) use of insulin; Z79.4 - group home (current) use of insulin ; Z79.4 - local company intermodal truck driver (current) use of insulin; Z79.4 - local company intermodal truck driver (current) use of insulin (7) Hyperkalemia Current Visit: Yes Status: Acute Resolved. Continue to monitor with a.m. labs. (8) Hepatitis C Current Visit: No Status: Chronic Patient has history of hepatitis C. LFTs are elevated. Avoid hepatotoxins if possible. Continue to monitor with a.m. labs. Qualifiers: Viral hepatitis chronicity: chronic Hepatic coma status: with hepatic coma Qualified Code(s): B18.2 - Chronic viral hepatitis C (9) DVT prophylaxis Current Visit: Yes Status: Acute Heparin is discontinued. Continue with intermittent pneumatic compression. Discussion w patient/family: The assessment and plan as outlined above was discussed with the patient and/or family members who expressed understanding and agreement. All questions were answered. Thank you for involving us in the care of your patient. Please call with any questions. Subjective Principal diagnosis: NSTEMI Interval history: Patient has improved mentation and kidney function. He has been alert and oriented to name and place. No acute overnight events. Denies fever, chills, lightheadedness, chest pain, diaphoresis, palpitations, nausea, vomiting. No difficulty voiding via kc. Admits to bowel movement yesterday night. Patient is cleared by ICU and pulm and pending transfer to floor. Objective Vital Signs, Last 4 Hours Temp Pulse Resp BP Pulse Ox 08/30/17 08:24 16 90 08/30/17 08:00 92 18 178/91 90 08/30/17 07:20 97.8 F General: Conversant, No Apparent Distress HEENT: Atraumatic, Normocephaly, Mucus Membranes Moist Neck: No JVD, Normal carotid pulses Cardiac: Reg Rate and Rhythm, Normal S1 and S2, No Murmur Lungs: Normal Breath Sounds, No Wheeze, Rales, Rhonchi Neuro: Alert and responsive, No focal deficits noted Abdomen: Soft, Non-Tender Skin: No rashes noted on visualized skin Musculoskeletal: No Chest Wall Tenderness Extremities: No Clubbing, No Cyanosis, Normal Pulses, Other (BL lower extremity edema 3+ ) Results 08/30/17 09:22 08/30/17 09:22 Lab Results 08/30/17 08/30/17 08/30/17 09:22 09:22 09:22 WBC 7.2 Hgb 11.3 L Hct 37.6 Plt Count 96 L Sodium 139 Potassium 4.0 Chloride 101 Carbon Dioxide 32 H BUN 19 Creatinine 1.34 H Glucose 127 H Calcium 9.3 Magnesium 1.3 L - VTE Reasons for not Prescribing Prophylaxis: Not indicated-Anticoagulated or INR therapeutic Consult Discharge Plan - Plan [facility]errals: [facility] [Primary Care Provider] -
[2017-08-30] MEDS: Magnesium Sulfate 2 GM in D5% in Water 100 ML IVPB PRN ×2 (11:15→20:44)
[2017-08-30 11:38] LABS: Alanine Aminotransferase 70 Units/L (0-55); Albumin 3.3 g/dL (3.5-5.0); Alkaline Phosphatase 63 Units/L (38-126); Aspartate Amino Transferase 44 Units/L (5-34); Bilirubin,Direct 0.3 mg/dL (0.0-0.5); Bilirubin,Indirect 0.2 mg/dL (0.0-1.2); Bilirubin,Total 0.5 mg/dL (0.2-1.2); Globulin 3.2 g/dL (2.4-3.5); Total Protein 6.5 g/dL (6.0-8.3)
--- NOTE | 2017-08-30 14:15 | Oncology Inp Consult Note ---
<Ansley Cristina E - Last Filed: 08/30/17 14:45> Date of Encounter: 08/30/17 Time of Encounter: 13:30 Assessment and Plan (1) Thrombocytopenia Status: Acute Assessment and plan: Thrombocytopenia likely secondary to sepsis could also be associated with Bactrim. Would recommend ensuring infection under control and platelets stable or trending up prior to catheterization. Discussed with Dr. Figueredo. He will see patient later today. - Data of Consult Requesting Physician: Luis Kline MD [facility] Provider[facility] - Consult Narrative Reason for consult: thrombocytopenia History of present illness: Mr. Thompson is a 61 year old male with a past medical history of COPD, CHF, diabetes, hypertension, cirrhosis and tobacco dependence presented to the ICU intubated from a [facility] ED. The patient has been noncompliant with CPAP or nebulizers at home for quite some time. He states that the mask on the CPAP makes him feel like he smothering. Arterial blood gases revealed respiratory alkalosis with a PCO2 of 108, lactic acid 2.5 troponin 4.69, potassium 6.1 and a creatinine of 13.3. At that time he had a decreased level of consciousness and was intubated and sedated. On and has decreased to level of 0.4, creatinine 1.34. He is currently treated for septic shock, NSTEMI acute renal failure, acute respiratory acidosis, acute exacerbation of COPD, hyperkalemia and diabetes. Rest toward culture was positive for. Stenotrophomonas maltophilia. He is receiving Bactrim IV antibiotics. We were asked to see the patient secondary to thrombocytopenia. At the time of admission platelets within normal range 273,000. On 08/26 they decreased to a level of 91,000 on 08/29 85,000 and today they have increased to a level of 96, 000. Cardiology plans to do left heart catheterization but wants to make sure that platelets are stable prior to him having a procedure. Pancytopenia could be associated with sepsis or could ALSO be associated with Bactrim. I did speak with Dr. Figueredo he stated that he felt that at this level would be safe for the patient to have a catheterization however he feels that it is important that the infection is under control and the platelets are stable or trending upward. The patient was seen and examined at the bedside. Patient will be seen by Dr. Figueredo later this afternoon. Past Med Surg Social Fam HX - Past Medical History Medical history: cirrhosis, CHF, COPD, coronary artery disease, diabetes, hepatitis (C), hyperlipidemia, hypertension, liver disease, myocardial infarction (in mid ), other (chronic smoker) Psychiatric history: anxiety, depression - Past Surgical History Surgical History: cholecystectomy, orthopedic, other (ankle), other - Social History Smoking Status: Current every day smoker (1PPD) Smokeless Tobacco Status: No Alcohol use: none Drug use: none, other - Family History Mother History Unknown: Yes Living Status: Still Living Hx Family Endocrine Disorder: Yes (DM) Father Living Status: Still Living Hx Family Cardiac Disorders: Yes (DE, CABG) Hx Family Endocrine Disorder: Yes (DM) Medications and Allergies Aspirin 81 mg PO DAILY 03/15/16 [History] Cholecalciferol (Vitamin D3) [Vitamin D3] 1,000 unit PO BID 03/15/16 [History] Insulin NPH/REG 70/30 (HUMAN) [Humulin 70/30 Vial] 10 unit SQ QPM 03/15/16 [ History] Insulin NPH/REG 70/30 (HUMAN) [Humulin 70/30 Vial] 12 unit SQ QAM 03/15/16 [ History] Magnesium 400 mg PO BID 03/15/16 [History] Budesonide/Formoterol 80/4.5 [Symbicort 80/4.5] 2 puff IH BIDR #2 inhaler 03/17 [Rx] Cyanocobalamin (Vitamin B-12) [Vitamin B12] 1,000 mcg PO BID 04/03/17 [History] Loratadine [Allergy Relief] 10 mg PO DAILY 04/03/17 [History] Omeprazole 20 mg PO DAILY 04/03/17 [History] Tiotropium [Spiriva] 18 mcg IH DAILY 04/03/17 [History] levETIRAcetam [Keppra] 250 mg PO BID 04/03/17 [History] Albuterol Sulfate [Ventolin Hfa] 1 puff IH Q4H PRN 04/04/17 [History] Aripiprazole [Abilify] 7.5 mg PO QAM 04/04/17 [History] Bisacodyl [Dulcolax] 5 mg PO DAILY PRN 04/04/17 [History] Lactulose 10 gm PO DAILY PRN 04/04/17 [History] Multivitamin-Min/Iron/FA/Vit K [Multi-Day Plus Minerals Tablet] 1 each PO DAILY 04/04/17 [History] Simvastatin [Zocor] 20 mg PO HS 04/04/17 [History] Oxycodone HCl/Acetaminophen [Percocet 5-325 mg Tablet] 1 tab PO Q8H PRN [History] 3 Allergy/AdvReac Type Severity Reaction Status Date / Time No Known Allergies Allergy Verified 03/15/16 17:09 All systems: reviewed and no additional remarkable complaints except as stated Eyes: Absent: blurry vision, change in vision Cardiovascular: Present: edema (lower extremities). Absent: chest pain, chest pain at rest, chest pain with activity, diaphoresis, dyspnea Respiratory: Absent: cough, dyspnea, pain on inspiration Gastrointestinal: Present: bloating (states because of cirrhosis). Absent: abdominal pain, change in stool character, melena Musculoskeletal: Present: muscle weakness. Absent: back pain Neurological: Absent: dizziness, focal weakness, numbness Psychiatric: Absent: confusion Hematologic/Lymphatic: Absent: easy bleeding, easy bruising Oncology - Exam - Constitutional Vitals: Temp Pulse Resp BP Pulse Ox 98.8 F 70 16 150/87 96 08/30/17 11:33 08/30/17 12:00 08/30/17 12:00 08/30/17 12:00 08/30/17 12:00 General appearance: cooperative, no acute distress - Head Head exam: Present: normocephalic - ENT ENT exam: Present: mucous membranes moist - Neck Neck exam: Present: normal inspection - Respiratory Respiratory exam: Present: decreased breath sounds, CTAB - Cardiovascular Cardiovascular exam: Present: RRR - GI/Abdominal GI/Abdominal exam: Present: distended, normal bowel sounds - Additional comments: kc cath in place with light yellow urine - Extremities Exam Extremities exam: Present: pedal edema (minimal lwer extremity edema, bruising at previous IV sites in upper extremities) - Back Exam Back exam: Present: normal inspection ( non tender) - Neurological Exam Neurological exam: Present: alert, oriented X3. Absent: facial droop - Psychiatric Psychiatric exam: Present: normal affect Oncology - Results Labs: Short CBC 08/30/17 Range/Units 09:22 WBC 7.2 (4.3-11.1) K/mcL Hgb 11.3 L (12.9-16.9) g/dL Hct 37.6 (37.5-50.1) % Plt Count 96 L (140-400) K/mcL Neutrophils # 5.5 (1.6-8.9) K/mcL BMP 08/30/17 09:22 Sodium 139 Potassium 4.0 Chloride 101 Carbon Dioxide 32 H BUN 19 Creatinine 1.34 H Glucose 127 H Calcium 9.3 Liver Function 08/30/17 Range/Units 09:22 Total Bilirubin 0.5 (0.2-1.2) mg/dL Direct Bilirubin 0.3 (0.0-0.5) mg/dL AST 44 H (5-34) Units/L ALT 70 H (0-55) Units/L Alkaline Phosphatase 63 (38-126) Units/L Albumin 3.3 L (3.5-5.0) g/dL Consult Discharge Plan - Plan [facility]errals: [facility]Primary Care Provider[facility] - <Boris Figueredo S - Last Filed: 08/30/17 18:06> Date of Encounter: 08/30/17 - Data of Consult Requesting Physician: Luis Kline MD Primary Care Provider: PCP [facility] - Consult Narrative History of present illness: Mr. Thompson is a 61 year old male Oncology - Exam - Constitutional Vitals: Temp Pulse Resp BP Pulse Ox 98.7 F 71 18 154/76 99 08/30/17 16:12 08/30/17 16:00 08/30/17 16:00 08/30/17 16:00 08/30/17 16:00 - Head Head exam: Present: atraumatic, normal inspection, normocephalic - Eye Eye exam: Present: normal appearance, conjuntiva pink, sclera anicteric - ENT ENT exam: Present: mucous membranes moist - Neck Neck exam: Present: full ROM, normal inspection - Respiratory Respiratory exam: Present: rales - Cardiovascular Cardiovascular exam: Present: RRR - Extremities Exam Extremities exam: Present: pedal edema Oncology - Results Labs: Short CBC 08/30/17 Range/Units 09:22 WBC 7.2 (4.3-11.1) K/mcL Hgb 11.3 L (12.9-16.9) g/dL Hct 37.6 (37.5-50.1) % Plt Count 96 L (140-400) K/mcL Neutrophils # 5.5 (1.6-8.9) K/mcL BMP 08/30/17 09:22 Sodium 139 Potassium 4.0 Chloride 101 Carbon Dioxide 32 H BUN 19 Creatinine 1.34 H Glucose 127 H Calcium 9.3 Liver Function 08/30/17 Range/Units 09:22 Total Bilirubin 0.5 (0.2-1.2) mg/dL Direct Bilirubin 0.3 (0.0-0.5) mg/dL AST 44 H (5-34) Units/L ALT 70 H (0-55) Units/L Alkaline Phosphatase 63 (38-126) Units/L Albumin 3.3 L (3.5-5.0) g/dL - Attending Attestation I examined this patient and my medical decision-making was reviewed with the Advanced Practice Nurse. I agree with the documented findings, disposition and treatment plan as described except to the extent set forth below. This gentleman appears to have subacute onset thrombocytopenia in the setting of critical illness relating to GNR pneumonia with Stenotrophomonas. He has received excellent care and is making an uneventful recovery. Clinical course not c/w HIT and his count has stabilized. I feel it is reasonable to proceed with catheter and intervention as deemed necessary by cardiology. No special precautions are necessary and anticoagulant/antiplatelet drugs may be utilized as standard.
[2017-08-30] MEDS: levETIRAcetam 250 MG TABLET PO SCH (18:30)
[2017-08-30] MEDS: Bisacodyl 10 MG RECTAL SUPPOSITORY RC SCH (20:45)
[2017-08-31] MEDS ORDERED: OLANZapine 10 MG TAB.RAPDIS PO ONE (01:29)
[2017-08-31] MEDS: Ipratropium/Albuterol Neb 3 ML IH SCH ×6 (03:41→23:30)
[2017-08-31 04:40] LABS: Basophils % 0.2 %; Eosinophils # 0.2 K/mcL (0.0-0.6); Eosinophils % 2.8 %; Hematocrit 35.3 % (37.5-50.1); Hemoglobin 10.7 g/dL (12.9-16.9); Immature Granulocytes % 0.3 % (0-4); Immature Platelets 8.4 % (1.1-6.1); Lymphocytes # 1.2 K/mcL (0.6-4.6); Lymphocytes % 19.1 %; Mean Corpuscular HGB Conc 30.3 g/dL (31.6-35.5); Mean Corpuscular Volume 95.7 fL (83.0-100.0); Monocytes # 0.4 K/mcL (0.0-1.3); Monocytes % 5.5 %; Red Blood Count 3.69 M/mcL (4.19-5.50); Segmented Neutrophils % 72.1 %
[2017-08-31 04:46] LABS: Neutrophils # 4.5 K/mcL (1.6-8.9); Platelet Count 91 K/mcL (140-400)
[2017-08-31 04:54] LABS: Magnesium 1.9 mg/dL (1.6-2.6); Phosphorous 3.6 mg/dL (2.3-4.7)
[2017-08-31] MEDS: Sulfamethoxazole/Trimeth 30 ML in D5% in Water 500 ML IVPB SCH ×3 (05:09→20:34)
[2017-08-31] MEDS: *HR* Heparin 5,000 UNIT/ML VIAL SQ SCH ×2 (05:09→18:14)
[2017-08-31] MEDS: levETIRAcetam 250 MG TABLET PO SCH ×2 (05:09→18:14)
[2017-08-31 05:14] LABS: Anisocytosis 1+ (Not Present); Platelet Estimate Decreased (Normal)
[2017-08-31 05:15] LABS: Large Platelets Present (Not Present)
[2017-08-31 06:44] LABS: BUN/Creatinine Ratio 15 (6-26); Blood Urea Nitrogen 18 mg/dL (8-26); Carbon Dioxide 29 mEq/L (19-29); Chloride 100 mEq/L (98-109); Glucose 86 mg/dL (70-99); Osmolality,Calculated 289 (280-300); Potassium 4.2 mEq/L (3.5-4.5); Sodium 139 mEq/L (136-145); eGFR For African Americans > 60 (> 60); eGFR For Non-African Americans 60 (> 60)
[2017-08-31] MEDS: Insulin LISPRO 300 UNITS/3 ML VIAL SQ SCH ×4 (07:39→20:33)
[2017-08-31] MEDS: Aspirin 81 MG TAB.CHEW PO SCH (08:13)
[2017-08-31] MEDS: Nicotine 14 MG PATCH.TD24 TD SCH (08:16)
[2017-08-31] MEDS: *HR* OxyCODONE/APAP 5/325 TABLET PO PRN ×2 (08:17→20:35)
[2017-08-31] MEDS: Insulin DETEMIR 100 UNIT/ML X5UNITS SQ SCH ×2 (08:26→22:45)
[2017-08-31] MEDS: Magnesium Sulfate 2 GM in D5% in Water 100 ML IVPB PRN (10:01)
--- NOTE | 2017-08-31 13:06 | Pre-Sedation Evaluation ---
Pre-sedation evaluation - Pre-sedation checklist Date of procedure: 08/29/17 Procedure: [facility] Recent Vitals: Last Vital Signs Temp 98.7 F 08/31/17 12:42 Pulse 65 08/31/17 11:00 Resp 19 08/31/17 11:00 BP 143/72 08/31/17 11:00 Pulse Ox 94 08/31/17 11:00 H&P (including ROS) documented in medical record: Yes Previous reaction to sedatives/anesthetics: No Dietary Status: NPO after Midnight Airway Assessment: Patient can open mouth completely, TMJ function normal Dentition: No loose teeth or bridges ASA Classification *see protocol: CLASS II-Mild systemic disease Plan of Care: Pt appropriate candidate for procedure/moderate/conscious sedation , Risks/benefits of procedure/sedation discussed w/ patient/family
[2017-08-31] MEDS ORDERED: *HR* FentaNYL (PF) 100 MCG/2 ML VIAL IVP ONE (13:32)
--- NOTE | 2017-08-31 14:16 | Pulmonology Progress Note ---
<Filemon Nolan - Last Filed: 08/31/17 15:08> Date of Encounter: 08/31/17 Time of Encounter: 13:28 Assessment and Plan (1) Altered mental status Current Visit: Yes Status: Acute Transfer to 2NE16 today. Venkatesh Pembertonmaribelmiguel accepts the patient. Converses with his . Answers questions appropriately. Patient still have times of disorientation to time, however states this is normal for him and he appears at baseline Head CT showed acute process with diffuse atrophic changes suggesting microvascular ischemia Patient would benefit from outpatient EEG for waxing and waning mental status which is not new according to Steroids stopped. Ativan discontinued. Home PRN pain medications ordered PT/OT on board. Qualifiers: Altered mental status type: disorientation Qualified Code(s): R41.0 - Disorientation, unspecified (2) Sepsis with multi-organ dysfunction Current Visit: Yes Status: Acute Source most likely from PNA. CXR showed RLL infiltartes/effusion. Vitals stable. abx: day 6 of bactrim will continue for total of 7 days. Patient has not required medication for agitation last night or today. Remains confused, oriented to self. patient to be transferred to med floor when available (3) NSTEMI (non-ST elevated myocardial infarction) Current Visit: Yes Status: Acute EKG depression V2-V5 anterolateral NSTEMI. Trops 3.93, 2.46, and 1.38.echo: HFpEF 60-65% continue [id number] Needs LHC per cardio, patient is on the surgery board to go today. Cardiology discussed patient has RV dysfunction thought possibly due to PE. Ordered CTA chest: negative for PE. (4) Elevated liver enzymes Current Visit: Yes Status: Acute repeat LFTs improved. AST 44 and ALT 70. has a history of liver cirrhosis and hep C which was treated a couple years back according to patient. Patient's denies IVDU. Ammonia levels normal - 2L yesterday on lasix and -3.5 today. No lasix today and holding spironolactone at this time. Patient on electrolyte protocol. Statin Held due to elevated LFTs, will recheck today. (5) Acute hypercapnic respiratory failure Current Visit: Yes Status: Acute Acute on chronic. He has compensated acid/base. We will place on BiPAP if needed. (6) 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, type II Current Visit: No Status: Chronic continue medium SSI subQ protocoli. 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 Qualifiers: Acute renal failure type: unspecified Qualified Code(s): N17.9 - Acute kidney failure, unspecified (8) DVT prophylaxis Current Visit: Yes Status: Acute Patient is on heparin. (9) Goals of care, counseling/discussion Current Visit: Yes Status: Acute Discussed with , patient's goals for therapy. She states he never had anything written down, but he wished to have everything done to keep him alive. She defaults as health proxy. Sheri Thompson [phone] Subjective Principal diagnosis: NSTEMI Interval history: Mr. Thompson is a 60M MHx of COPD, seizure, CHF, CIrrhosis, CAD, T2DM, hep C- treated, HLD, and HTN originally admitted for septic shock, pneumonia, and CELINA. At this time patient septic shock and CELINA have resolved. He is on Day 6 out of 7 of bactrim for pneumonia. Since being extubated on 08/25 patient has had waxing and waning disorientation that has been improving and now the patient is at his baseline. Head CT was negative. Latest labs include CBC which had platelet count of 91 that has been stable since arrival and BMP was unremarkable. Consulted with hematology for his thrombocytopenia and will undergo LHC today. Objective PUL Vital signs: Last Vital Signs Temp 98.7 F 08/31/17 12:42 Pulse 65 08/31/17 11:00 Resp 19 08/31/17 11:00 BP 143/72 08/31/17 11:00 Pulse Ox 94 08/31/17 11:00 General appearance: no acute distress, alert Eyes: nonicteric ENT: oropharynx moist Neck: supple Effort: normal Auscultation: bilateral: clear Cardiovascular: regular rate and rhythm Gastrointestinal: normoactive bowel sounds, soft, non-tender, non-distended Integumentary: normal Extremities: no cyanosis, no edema, pink and warm, pulses normal, no ischemia or petechiae Musculoskeletal: no deformities normal mental status, non-focal exam, other (Patient is AOx3. ) mood appropriate, affect normal Results - Laboratory Findings CBC and BMP: 08/31/17 04:07 08/31/17 04:07 ABG ABG pH 7.38 pH Units (7.32-7.45) 08/29/17 10:07 ABG pCO2 53 mmHg (35-45) H 08/29/17 10:07 ABG pO2 80 mmHg (85-104) L 08/29/17 10:07 ABG O2 Saturation 95 % (95-98) 08/29/17 10:07 Abnormal lab findings: Abnormal lab results RBC 3.69 M/mcL (4.19-5.50) L 08/31/17 04:07 Hgb 10.7 g/dL (12.9-16.9) L 08/31/17 04:07 Hct 35.3 % (37.5-50.1) L 08/31/17 04:07 MCHC 30.3 g/dL (31.6-35.5) L 08/31/17 04:07 Plt Count 91 K/mcL (140-400) L 08/31/17 04:07 Nucleated RBCs/100 WBC 0.9 /100 WBC (0) H 08/22/17 05:00 Platelet Estimate Decreased (Normal) L 08/31/17 04:07 Large Platelets Present (Not Present) A 08/31/17 04:07 Immature Plt Fraction 8.4 % (1.1-6.1) H 08/31/17 04:07 Polychromasia 1+ (Not Present) A 08/21/17 23:15 Hypochromasia Present (Not Present) A 08/21/17 23:15 Anisocytosis 1+ (Not Present) A 08/31/17 04:07 Macrocytosis Present (Not Present) A 08/21/17 23:15 APTT 105.1 Seconds (26.0-36.0) H 08/24/17 02:21 ABG pCO2 53 mmHg (35-45) H 08/29/17 10:07 ABG pO2 80 mmHg (85-104) L 08/29/17 10:07 ABG HCO3 31 mEq/L (21-27) H 08/29/17 10:07 ABG Total CO2 33 mEq/L (20-26) H 08/29/17 10:07 ABG Base Excess 5 mEq/L (-2 to 3) H 08/29/17 10:07 POC Glucose 160 (58-89) H 08/31/17 12:13 Hemoglobin A1c 6.5 % (-5.6) H 08/22/17 05:00 AST 44 Units/L (5-34) H 08/30/17 09:22 ALT 70 Units/L (0-55) H 08/30/17 09:22 Troponin I 0.48 ng/mL (0-0.03) H* 08/27/17 19:23 Albumin 3.3 g/dL (3.5-5.0) L 08/30/17 09:22 Albumin/Globulin Ratio 1.0 (1.1-2.2) L 08/30/17 09:22 Urine Clarity Cloudy (Clear) A 08/22/17 08:30 Urine Protein 30 mg/dL (Neg-Trace) H 08/22/17 08:30 Urine Blood Moderate (Negative) H 08/22/17 08:30 Urine Microscopic WBC 5-15 per hpf (0-3) H 08/22/17 08:30 Ur Squamous Epith Cells Many per lpf (None-Few) H 08/22/17 08:30 Urine Opiates Screen Positive ng/mL (Mmafqb=919) H 08/22/17 02:15 U Benzodiazepines Scrn Positive ng/mL (Dkmcwn=151) H 08/22/17 02:15 - Microbiology Findings Microbiology Findings: Microbiology, Last 48 Hours 08/29/17 03:02 Blood Culture - Preliminary Peripheral Venipuncture No growth. - Clinical Findings Intake & Output: Intake & Output 08/30/17 08/31/17 08/31/17 23:59 07:59 15:59 Intake Total 754 / 754 530 / 530 Output Total 2300 / 2300 2450 / 2450 1100 / 1100 Balance -1546 / -1546 -1920 / -1920 -1100 / -1100 Weight 101.51 kg - VTE Reasons for not Prescribing Prophylaxis: Not indicated-Anticoagulated or INR therapeutic Consult Discharge Plan - Plan [facility]errals: [facility] [Primary Care Provider] - <Willa Martin - Last Filed: 08/31/17 18:50> Date of Encounter: 08/31/17 Objective PUL Vital signs: Last Vital Signs Temp 98.5 F 08/31/17 17:54 Pulse 81 08/31/17 17:54 Resp 22 08/31/17 17:54 BP 143/60 08/31/17 17:54 Pulse Ox 93 08/31/17 17:54 Results - Laboratory Findings CBC and BMP: 08/31/17 04:07 08/31/17 04:07 ABG ABG pH 7.38 pH Units (7.32-7.45) 08/29/17 10:07 ABG pCO2 53 mmHg (35-45) H 08/29/17 10:07 ABG pO2 80 mmHg (85-104) L 08/29/17 10:07 ABG O2 Saturation 95 % (95-98) 08/29/17 10:07 Abnormal lab findings: Abnormal lab results RBC 3.69 M/mcL (4.19-5.50) L 08/31/17 04:07 Hgb 10.7 g/dL (12.9-16.9) L 08/31/17 04:07 Hct 35.3 % (37.5-50.1) L 08/31/17 04:07 MCHC 30.3 g/dL (31.6-35.5) L 08/31/17 04:07 Plt Count 91 K/mcL (140-400) L 08/31/17 04:07 Nucleated RBCs/100 WBC 0.9 /100 WBC (0) H 08/22/17 05:00 Platelet Estimate Decreased (Normal) L 08/31/17 04:07 Large Platelets Present (Not Present) A 08/31/17 04:07 Immature Plt Fraction 8.4 % (1.1-6.1) H 08/31/17 04:07 Polychromasia 1+ (Not Present) A 08/21/17 23:15 Hypochromasia Present (Not Present) A 08/21/17 23:15 Anisocytosis 1+ (Not Present) A 08/31/17 04:07 Macrocytosis Present (Not Present) A 08/21/17 23:15 APTT 105.1 Seconds (26.0-36.0) H 08/24/17 02:21 ABG pCO2 53 mmHg (35-45) H 08/29/17 10:07 ABG pO2 80 mmHg (85-104) L 08/29/17 10:07 ABG HCO3 31 mEq/L (21-27) H 08/29/17 10:07 ABG Total CO2 33 mEq/L (20-26) H 08/29/17 10:07 ABG Base Excess 5 mEq/L (-2 to 3) H 08/29/17 10:07 POC Glucose 98 (58-89) H 08/31/17 15:03 Hemoglobin A1c 6.5 % (-5.6) H 08/22/17 05:00 AST 44 Units/L (5-34) H 08/30/17 09:22 ALT 70 Units/L (0-55) H 08/30/17 09:22 Troponin I 0.48 ng/mL (0-0.03) H* 08/27/17 19:23 Albumin 3.3 g/dL (3.5-5.0) L 08/30/17 09:22 Albumin/Globulin Ratio 1.0 (1.1-2.2) L 08/30/17 09:22 Urine Clarity Cloudy (Clear) A 08/22/17 08:30 Urine Protein 30 mg/dL (Neg-Trace) H 08/22/17 08:30 Urine Blood Moderate (Negative) H 08/22/17 08:30 Urine Microscopic WBC 5-15 per hpf (0-3) H 08/22/17 08:30 Ur Squamous Epith Cells Many per lpf (None-Few) H 08/22/17 08:30 Urine Opiates Screen Positive ng/mL (Wesmji=512) H 08/22/17 02:15 U Benzodiazepines Scrn Positive ng/mL (Sjufjm=393) H 08/22/17 02:15 - Microbiology Findings Microbiology Findings: Microbiology, Last 48 Hours 08/29/17 03:02 Blood Culture - Preliminary Peripheral Venipuncture No growth. - Clinical Findings Intake & Output: Intake & Output 08/31/17 08/31/17 08/31/17 07:59 15:59 23:59 Intake Total 530 / 530 Output Total 2450 / 2450 1600 / 1600 240 / 240 Balance -1920 / -1920 -1600 / -1600 -240 / -240 Weight 101.51 kg - Attending Attestation I saw the patient with the resident agree with History and Physical exam findings. Labs and Radiology were reviewed INSPECTOR HOT FORGINGS: Patient is conscious oriented x 3 sitting in his chair talking with his had a episodic confusion drowsiness yesterday evening , CT scan negative for acute intracranial process , EEG didnt show any seizure activity the episodic fluctuation on consciousness more point towards delirium . to avoid any benzodiazepine NECK : No JVD appreciated Pulmonary : Patient gas exchange adequate he has chronic hypercapnic respiratory failure . To continue O2 supplementation hypoxia secondary RLL atelectasis with pleural effusion with nella hepatic ascites , patient is diuresing well Cardiac : Hemodynamically stable , NSTEMI , patient has new onset right ventricular systolic dysfunction concern for PE CTA didnt show any evidence of pulmonary embolism . Patient will be going for Cath during this hospital stay Nutrition/GI: Patient is on cardiac diabetic diet . Renal : Stable , Patient is diuresing weel Heme onc : No acute issues , thrombocytopenia stable sepsis , patient has some cirrhosis with some portal hypertension. Hematology evaluation for thrombocytopenia as requested by cardiology. ID : Sputum is growing stenotrophomonas maltophilia adjusted the dose of bactrim IV will finish with 1 more day of antibiotics Musculo skeletal / skin issues : No issues Disposition : Transfer to because of his waxing and waning clinical course. Report was called to the hospitalist they are going to see the patient tomorrow. Code status: Full Code Family/POA: Had a discussion with .
[2017-08-31] MEDS ORDERED: Heparin 1,000 UNITS/500 mL NS 500 ML ONE (16:34)
[2017-08-31] MEDS ORDERED: *HR* Heparin 10,000 UNIT/10 ML VIAL ONE (16:34)
[2017-08-31] MEDS ORDERED: 0.9 % Sodium Chloride 1,000 ML ONE ×2 (16:34→17:10)
[2017-08-31] MEDS ORDERED: Verapamil 5 MG/2 ML VIAL ONE (17:07)
[2017-08-31] MEDS ORDERED: Nitroglycerin 1,000 MCG/10 ML VIAL IV ONE (17:07)
[2017-08-31] MEDS ORDERED: *HR* Midazolam HCl 2 MG/2 ML VIAL ONE (17:10)
[2017-08-31] MEDS ORDERED: *HR* FentaNYL (PF) 100 MCG/2 ML VIAL ONE (17:10)
--- NOTE | 2017-08-31 17:46 | Invasive Diagnostic Lab Proc ---
Name: Bhavesh Thompson Date of Study: 08/31/2017 Date: 1955 Ht: 72.0in Medical Record#: [id number] Age: 61 Wt: 224.87lb Gender: Male BSA: 2.24 Order #: [id number] BMI: 30.46 Physicians Procedure Physician: Jed Landry MD, [facility] Referring MD: Referring MD: Staff Name Position Time In Annemarie Arriola RT (R) Monitor 05:17 PM DeLuis Alberto RT (R) Scrub 05:17 PM Kasey Agudelo RN Radiophone Operator 05:17 PM Indications Indication Non-Stemi Procedures Performed Procedure L HRT ARTERY/VENTRICLE ANGIO Pre-Procedure Checklist Informed consent is complete signed and on chart. H&P is on chart. ID band is on and ID verified with patient. Patient NPO for procedure The procedure was described for the patient and questions were answered. Blood Pressure: 149/75 ECG is on chart. Rhythm: NSR Plan of Care Patient will tolerate the procedure without complications. Adequate level of comfort will be maintained. Hemodynamics will remain stable Patient will recover from procedure without complications. Respiratory function will be maintained. Cardiac rhythm will remain stable. Patient temperature will be maintained. Patient and/or family have verbalized understanding of the procedure. Patient Education Chief Complaint/Reason for Test: Cardiac Cath Developmental Category: Geriatric (65+ years) Developmentally Appropriate for Age: Yes Learning Barriers: None Education Needs: Procedure Education Method: Verbal Information Taught: Cardiac Cath Educational Evaluation: Able to repeat information Intravenous Access Time IV Size Location DC'd Fluid/Drip Rate Units RN 05:16 PM 20g 1 1/" Patent On Arrival Rt Antecubital 0.9NaCl 25 ml/hr PICC Line Rt Arm Allergies NKDA No Known Allergies Vital Signs Time BP (mmHg) HR (bpm) O2 Sat. RR (bpm) LOC 05:18 PM 149 / 75 75 92 % 20 4 = Oriented but drowsy 05:18 PM / % 4 = Oriented but drowsy 05:26 PM 138 / 64 76 89 % 20 05:31 PM 151 / 73 79 92 % 22 05:11 PM 150 / 78 70 88 % 30 05:16 PM 149 / 75 71 90 % 18 05:21 PM 160 / 78 73 92 % 18 Procedural Medications Time Medication Dose Units Method Given By 05:18 PM Oxygen 6 L/min Oxy Mask Kasey Agudelo RN 05:18 PM Versed 1 mg Intravenous Kasey Agudelo RN 05:18 PM Fentanyl 25 mcg Intravenous Kasey Agudelo RN 05:21 PM Versed 1 mg Intravenous Kasey Agudelo RN 05:21 PM Lidocaine 2% 1 ml Subcutaneous Jed Landry MD, [facility] 05:22 PM Heparin 4000 units Nitroglycerin 200 mcg Verapamil 2.5 mg Intraarterial eJd Landry MD, [facility] ASA Classification: CLASS II- Mild systemic disease (i.e. well-controlled diabetes, hypertension, asthma, cigarette smoking) Jaz Score Preprocedure Postprocedure Activity 1- Moves 2 extremities sustained head lift Activity 1- Moves 2 extremities sustained head lift Circulation 2- SBP +/= 20 points of pre-anesthetic level Circulation 2- SBP +/= 20 points of pre-anesthetic level Consciousness 2- Awake and alert oriented x 3 Consciousness 2- Awake and alert oriented x 3 O2 Saturation 2- Able to maintain O2 satruation of 92% on room air O2 Saturation 2- Able to maintain O2 satruation of 92% on room air Respiratory 2- Able to deep breathe and cough well Respiratory 2- Able to deep breathe and cough well Total Score 9 Total Score 9 Contrast Agent: Isovue Diagnostic Contrast: 52 ml Total Contrast: 52 ml Fluoro Dose: 154 mGy Procedure Log Time Note Enter By 05:10 PM Vitals capture started with the following parameters, Patient=Adult, Interval=5 min, Initial Ahuenyos=916 mmHg, Deflation Rate=5 mmHg, Cuff placed on Left Arm 05:11 PM HR=70 bpm, IARI=703/78 mmhg, SpO2=88.0 %, Resp=30 B/min 05:15 PM CathStat 05:16 PM Recorded ECG: HR=73 Condition=Condition 1 05:16 PM HR=71 bpm, TMPP=049/75 mmhg, SpO2=90.0 %, Resp=18 B/min 05:16 PM Pt arrived to rags laborer 2 at 17:16 [email or web address] 05:17 PM Annemarie Arriola RT (R) Position: Monitor Time in: 17:17 [email or web address] 05:17 PM Luis Alberto Kc RT (R) Position: Scrub Time in: 17:17 [email or web address] 05:17 PM Kasey Agudelo RN Position: Radiophone Operator Time in: 17:17 [email or web address] 05:17 PM Patient charges- Angio tray pack, Navilyst 3mm J, Pulse Oximetry and ACIST tubing and transducer [email or web address] 05:17 PM Case Delayed Previous case ran long [email or web address] 05:17 PM Physician arrived 17:17 [email or web address] 05:17 PM ASA Class CLASS II- Mild systemic disease (i.e. well-controlled diabetes, hypertension, asthma, cigarette smoking) [email or web address] 05:17 PM Meet and sandy completed [email or web address] 05:17 PM Sign in performed according to hospital policy. [email or web address] 05:17 PM Procedure start 17:17 [email or web address] 05:17 PM Hair removed from procedure site in holding area using clippers. Right wrist prepped with Chloraprep by Annemarie Arriola (R), safety strap applied then patient was draped. Skin intact. [email or web address] 05:17 PM Hair removed from procedure site in holding area using clippers. Right groin prepped with Chloraprep by Annemarie Arriola (R), safety strap applied then patient was draped. Skin intact. [email or web address] 05:18 PM Pressure channel 3 zeroed. 05:18 PM Time: 17:18 Oxygen on at 6 L/min per Oxy Mask by Kasey Agudelo RN [email or web address] 05:18 PM Time: 17:18 Versed 1 mg Intravenous Given by Kasey Agudelo RN [email or web address] 05:18 PM Time: 17:18 Fentanyl 25 mcg Intravenous Given by Kasey Agudelo RN [email or web address] 05:18 PM Time: 17:18 Patient comfortable and pain free: No [email or web address] 05:18 PM Time: 17:18LOC: 4 = Oriented but drowsy [email or web address] 05:21 PM HR=73 bpm, NINS=283/78 mmhg, SpO2=92.0 %, Resp=18 B/min 05:21 PM Time: 17:21 Versed 1 mg Intravenous Given by Kasey Agudelo RN [email or web address] 05:21 PM Time out performed according to hospital policy [email or web address] 05:21 PM Time: 17:21 1 ml Lidocaine 2% to right radial Subcutaneous Given by Jed Landry MD, [facility] [email or web address] 05:22 PM Access obtained by percutaneous puncture. 6Fr 10cm Terumo [place] sheath placed in right Radial artery. [id number] [email or web address] 05:22 PM 0.035 260cm Navilyst 3mmJ wire [id number] [email or web address] 05:22 PM Time: 17:22 Patient given 4,000 units Heparin, 200 mcg Nitroglycerin, and 2.5 mg Verapamil Intraarterial by Jed Landry MD, [facility] [email or web address] 05:22 PM 5Fr TIG catheter inserted over the wire DN [email or web address] 05:23 PM RCA angiography performed in multiple views. [email or web address] 05:23 PM Recorded Pressure: Ao, HR=75, Condition=Condition 1 (Aorta) Ao 93/49/68 05:24 PM Coronary Dominance: right [email or web address] 05:24 PM Lesion found in Mid RCA. Pre Stenosis: 30 Pre DEEDEE Flow: [email or web address] 05:24 PM LCA angiography performed in multiple views. [email or web address] 05:24 PM Recorded Pressure: Ao, HR=75, Condition=Condition 1 (Aorta) Ao 98/56/73 05:25 PM Lesion found in Mid Circumflex. Pre Stenosis: 20 Pre DEEDEE Flow: [email or web address] 05:25 PM Lesion found in Proximal LAD. Pre Stenosis: 30 Pre DEEDEE Flow: [email or web address] 05:25 PM Lesion found in Mid LAD. Pre Stenosis: 30 Pre DEEDEE Flow: [email or web address] 05:25 PM Recorded Pressure: Ao, HR=75, Condition=Condition 1 (Aorta) Ao 92/51/67 05:25 PM Catheter removed [email or web address] 05:25 PM 5Fr Pigtail catheter inserted over the wire [facility] [email or web address] 05:25 PM Catheter selectively placed in left ventricle [email or web address] 05:26 PM HR=76 bpm, KKML=294/64 mmhg, SpO2=89.0 %, Resp=20 B/min 05:27 PM Pressure channel 3 zero failed. 05:27 PM Pressure channel 3 zeroed. 05:27 PM Recorded Pressure: LV, HR=78, Condition=Condition 1 (Left Ventricle) LV 134/2/19 05:28 PM Bolus angiogram of left Ventricle complete: 10 ml/sec for a total of 25 mls [email or web address] 05:28 PM Recorded Pressure: LV, Ao, HR=78, Condition=Condition 1 (Left Ventricle) LV 129/11/19, (Aorta) Ao 119/43/78 05:28 PM Catheter removed [email or web address] 05:29 PM Procedure completed at 17:29 [email or web address] 05:29 PM Sign out completed: Radiation Dose 154.22 mGy Fluoro Time: 1.5 Isovue 370 - 200ml contrast 52 ml given by Jed Landry MD, [facility]. Complications: NoneCardiac Rehab Consult needed: NoConfirmed administered medications: Yes [email or web address] 05:30 PM Isovue 370 - 200ml,1 Bottle(s) used. [email or web address] 05:30 PM Arterial sheath pulled, Vasc Band closure device used and was Successful S/N. [email or web address] 05:30 PM Post ECG NSR [email or web address] 05:31 PM HR=79 bpm, XQDI=194/73 mmhg, SpO2=92.0 %, Resp=22 B/min 05:31 PM Post Blood Pressure 151/73 [email or web address] 05:31 PM 17:31 Post Pulses Bilateral DP & PT 1+ [email or web address] 05:31 PM Information taught Cardiac Cath [email or web address] 05:31 PM Education needs Procedure, Plan of Care, and Disease Process [email or web address] 05:31 PM Learning barriers :None [email or web address] 05:31 PM Education Methods Verbal [email or web address] 05:31 PM Education evaluation Able to repeat information [email or web address] 05:32 PM Site status No bleeding/hematoma - Rt Wrist as reported by Luis Alberto Kc RT (R) at 17:32 [email or web address] 05:32 PM 12 ml air in Vasc Band. [email or web address] 05:32 PM Family placed in NOT AVAILABLE. [email or web address] 05:32 PM Complications: None [email or web address] 05:32 PM Fluoro Time: 1.5 [email or web address] 05:32 PM Radiation Dose 154.22 mGy [email or web address] 05:33 PM Time: 17:18LOC: 4 = Oriented but drowsy [email or web address] 05:34 PM Time: 17:18 Patient comfortable and pain free: Yes [email or web address] 05:39 PM Report given to John TRACY Pt taken to 2NE Room #16. 17:39 [email or web address] 05:41 PM Patient out of room: 17:41 [email or web address] Complications Complication None None Hemodynamics Pressures Site Systolic/A Wave Diastolic/V Wave Mean AO 93 49 68 AO 98 56 73 AO 92 51 67 LV 134 2 19 LV 129 11 19 AO 119 43 78 Post Procedure Information Blood Pressure: 151/73 mmHg Rhythm: NSR Post procedural instructions were given Closure Device Time Device Success/Fail 08/31/2017 5:33:00 PM Manual Compression YES Site Checks Time Location Status Staff Sheath In? Note 05:32 PM Rt Wrist No bleeding/hematoma Luis Alberto Kc RT (R) Pulses Time Site Pre-Procedure Post-Procedure Note 08/31/2017 5:19:00 PM Bilateral DP & PT 1+ 5:31:00 PM Bilateral DP & PT 1+ Updated by Annemarie Arriola, RT(R) on 08/31/2017 5:42:02 PM electronically signed on 08/31/2017 5:42:29 PM with status of Final
--- NOTE | 2017-08-31 18:27 | Event Note ---
Date of Encounter: 08/31/17 Time of Encounter: 17:00 The patient is in ICU stepdown to 2 NE16. He was originally admitted on 08/21 with septic shock, sepsis multiorgan dysfunction, NSTEMI and acute renal failure. Septic source most likely from pneumonia. The patient is on day course of Bactrim. Now hemodynamically stable. Patient undergoing LHC per cardio today for an NSTEMI diagnosis. He is to stepdown today to 2NE 16 status post heart cath. Dayshift rounding team to see tomorrow
[2017-08-31] MEDS: Bisacodyl 10 MG RECTAL SUPPOSITORY RC SCH (20:33)
[2017-08-31] MEDS: OLANZapine 10 MG TAB.RAPDIS PO SCH (21:17)
--- NOTE | 2017-08-31 22:07 | Oncology Inp Progress Note ---
Date of Encounter: 08/31/17 Time of Encounter: 16:45 (1) Thrombocytopenia Current Visit: Yes Status: Acute Assessment and plan: Thrombocytopenia secondary to infection. Platelet count has stabilized. Will continue to follow. Oncology: Subj Interval history: Mr. Melendez is heading to cardiac catheterization. Feeling okay. No bleeding. Will transfer to floor later this evening. - Constitutional Vitals: Vital Signs Temp Pulse Resp BP Pulse Ox 08/31/17 20:00 98.5 F 85 19 136/68 94 08/31/17 19:56 15 90 08/31/17 19:15 89 144/53 08/31/17 19:00 85 142/68 08/31/17 17:54 98.5 F 81 22 143/60 93 08/31/17 15:51 98.5 F 08/31/17 15:45 64 20 133/64 96 08/31/17 15:32 20 95 08/31/17 12:42 98.7 F 08/31/17 11:06 16 96 08/31/17 11:00 65 19 143/72 94 08/31/17 09:00 72 18 136/62 96 08/31/17 07:49 15 91 08/31/17 07:22 98.4 F 08/31/17 07:00 81 20 147/58 97 08/31/17 06:00 85 19 141/70 94 08/31/17 04:00 72 15 122/94 93 08/31/17 03:58 73 08/31/17 03:41 13 137/76 95 08/31/17 03:40 98.4 F 08/31/17 02:00 72 16 146/57 93 08/31/17 00:00 98.8 F 72 14 135/62 96 08/30/17 23:42 18 135/62 96 08/30/17 23:20 98.8 F Intake and Output 08/31/17 08/31/17 09/01/17 08:59 16:59 00:59 Intake Total 530 / 530 530 / 530 120 / 120 Output Total 2450 / 2450 1600 / 1600 865 / 865 Balance -1920 / -1920 -1070 / -1070 -745 / -745 Intake: IV Fluids 530 / 530 530 / 530 Bactrim 2400MG/480MG/30 ML 30 530 / 530 530 / 530 ML In Dextrose 5% 500 ML @ 265 mls/hr IVPB Q8H COUNTS INCLUDE 234 BEDS AT THE [facility] Rx#: [id number] Oral 120 / 120 Output: Urine 500 / 500 865 / 865 Catheter 2450 / 2450 1100 / 1100 Other: Blood Glucose* 130 98 246 - Head Head exam: Present: atraumatic, normal inspection, normocephalic - Eye Eye exam: Present: EOMI, normal appearance, conjuntiva pink, sclera anicteric - ENT ENT exam: Present: mucous membranes moist, normal exam - Neck Neck exam: Present: full ROM, normal inspection - Respiratory Respiratory exam: Present: decreased breath sounds, rales - Cardiovascular Cardiovascular exam: Present: RRR - GI/Abdominal GI/Abdominal exam: Present: normal bowel sounds - Extremities Exam Extremities exam: Present: pedal edema Additional comments: Bruises about arms - Neurological Exam Neurological exam: Present: alert, CN II-XII intact, oriented X3 Oncology: Obj Data - Labs CBC & Chem 7: 08/31/17 04:07 08/31/17 04:07 Labs: Laboratory Results - last 24 hr 08/30/17 08/31/17 08/31/17 18:30 04:07 04:07 WBC 6.3 RBC 3.69 L Hgb 10.7 L Hct 35.3 L MCV 95.7 MCH 29.0 MCHC 30.3 L RDW 14.0 Plt Count 91 L MPV 12.0 Immature Gran % 0.3 Seg Neutrophils % 72.1 Lymphocytes % 19.1 Monocytes % 5.5 Eosinophils % 2.8 Basophils % 0.2 Neutrophils # 4.5 Lymphocytes # 1.2 Monocytes # 0.4 Eosinophils # 0.2 Basophils # 0.0 Platelet Estimate Decreased L Large Platelets Present A Immature Plt Fraction 8.4 H Anisocytosis 1+ A Sodium 139 Potassium 4.2 Chloride 100 Carbon Dioxide 29 BUN 18 Creatinine 1.23 Est GFR ( Amer) > 60 Est GFR (Non-Af Amer) 60 BUN/Creatinine Ratio 15 Glucose 86 POC Glucose Calculated Osmolality 289 Calcium 9.0 Ionized Calcium 1.20 Phosphorus 3.6 Magnesium 1.9 Urine Osmolality 476 08/31/17 08/31/17 08/31/17 07:07 12:13 15:03 WBC RBC Hgb Hct MCV MCH MCHC RDW Plt Count MPV Immature Gran % Seg Neutrophils % Lymphocytes % Monocytes % Eosinophils % Basophils % Neutrophils # Lymphocytes # Monocytes # Eosinophils # Basophils # Platelet Estimate Large Platelets Immature Plt Fraction Anisocytosis Sodium Potassium Chloride Carbon Dioxide BUN Creatinine Est GFR ( Amer) Est GFR (Non-Af Amer) BUN/Creatinine Ratio Glucose POC Glucose 130 H 160 H 98 H Calculated Osmolality Calcium Ionized Calcium Phosphorus Magnesium Urine Osmolality - ABG Interpretation ABG results: ABG ABG pH 7.38 pH Units (7.32-7.45) 08/29/17 10:07 ABG pCO2 53 mmHg (35-45) H 08/29/17 10:07 ABG pO2 80 mmHg (85-104) L 08/29/17 10:07 ABG O2 Saturation 95 % (95-98) 08/29/17 10:07 Consult Discharge Plan - Plan [facility]errals: [facility] [Primary Care Provider] -
[2017-09-01] MEDS: Sulfamethoxazole/Trimeth 30 ML in D5% in Water 500 ML IVPB SCH ×3 (03:59→20:56)
[2017-09-01] MEDS: Ipratropium/Albuterol Neb 3 ML IH SCH ×6 (04:09→23:20)
[2017-09-01] MEDS: *HR* OxyCODONE/APAP 5/325 TABLET PO PRN ×3 (04:20→20:04)
[2017-09-01] MEDS: levETIRAcetam 250 MG TABLET PO SCH ×2 (05:54→20:04)
[2017-09-01] MEDS: *HR* Heparin 5,000 UNIT/ML VIAL SQ SCH ×2 (05:54→20:03)
[2017-09-01] MEDS: Insulin LISPRO 300 UNITS/3 ML VIAL SQ SCH ×4 (07:51→22:41)
[2017-09-01] MEDS: Aspirin 81 MG TAB.CHEW PO SCH (08:02)
[2017-09-01] MEDS: Nicotine 14 MG PATCH.TD24 TD SCH (08:02)
[2017-09-01 09:20] LABS: BUN/Creatinine Ratio 11 (6-26); Blood Urea Nitrogen 11 mg/dL (8-26); Calcium 9.1 mg/dL (8.6-10.8); Carbon Dioxide 31 mEq/L (19-29); Chloride 99 mEq/L (98-109); Glucose 84 mg/dL (70-99); Osmolality,Calculated 281 (280-300); Potassium 4.7 mEq/L (3.5-4.5); Sodium 136 mEq/L (136-145); eGFR For African Americans > 60 (> 60); eGFR For Non-African Americans > 60 (> 60)
--- NOTE | 2017-09-01 09:46 | Internal Med Progress Note ---
<Andre Trinh - Last Filed: 09/01/17 15:23> Date of Encounter: 09/01/17 Time of Encounter: 08:35 - Assessment and plan (1) Altered mental status Current Visit: Yes Status: Resolved Assessment and plan: Seemingly resolved, although patient's family states that he alternates between altered and unaltered mentation At this time, patient A&Ox3 Qualifiers: Altered mental status type: disorientation Qualified Code(s): R41.0 - Disorientation, unspecified (2) Sepsis with multi-organ dysfunction Current Visit: Yes Status: Resolved (3) Acute hypercapnic respiratory failure Current Visit: Yes Status: Resolved (4) 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, type II Current Visit: No Status: Chronic Assessment and plan: continue sliding scale insulin algorithm monitor FS and BG ADA diet Qualifiers: 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 complication status: with circulatory complication 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 complication detail: with other circulatory complications 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 vermin exterminator insulin use: with vermin exterminator use Qualified Code(s) : E11.59 - Type 2 diabetes mellitus with other circulatory complications; Z79.4 - exterminator helper termite (current) use of insulin; Z79.4 - penitentiary (current) use of insulin ; Z79.4 - penitentiary (current) use of insulin; Z79.4 - penitentiary (current) use of insulin (5) Acute kidney failure, unspecified Current Visit: Yes Status: Resolved Qualifiers: Acute renal failure type: unspecified Qualified Code(s): N17.9 - Acute kidney failure, unspecified (6) Thrombocytopenia Current Visit: Yes Status: Acute Assessment and plan: Improving (7) Obesity (BMI 30-39.9) Current Visit: Yes Status: Chronic (8) DVT prophylaxis Current Visit: Yes Status: Acute Assessment and plan: SQ Heparin - Subjective Interval history: Patient is resting comfortably in a chair at the time of examination, he is eating his breakfast. He has no acute complaints at this time. Patient was accepted as transfer from ICU. He was admitted to the ICU with septic shock, acute renal failure, hypoxic respiratory failure with respiratory acidosis, and required intubation for airway management. Since that time, patient has been successfully extubated, kidneys have returned to baseline function, and the patient is no longer altered. Chart reviewed, agreed with course of current treatment plan. Cardiology, pulmonology, oncology, neurology consulted. PT/OT Recommend swing bed. - Constitutional Vitals: Temp Pulse Resp BP Pulse Ox 98.2 F 72 16 160/69 99 09/01/17 07:35 09/01/17 07:35 09/01/17 07:35 09/01/17 07:35 09/01/17 07:35 General appearance: Present: A&O X 3, no acute distress, obese, answers questions appropriately - Head Head exam: Present: atraumatic, normocephalic - Eye Eye exam: Present: PERRL, conjuntiva pink, sclera anicteric Pupils: Present: PERRL - Neck Neck exam general surgery: Present: supple, trachea midline. Absent: lymphadenopathy - Respiratory Respiratory exam: Present: CTAB. Absent: accessory muscle use, rales, rhonchi, wheezes - Cardiovascular Cardiovascular exam: Present: RRR, +S1, +S2. Absent: diastolic murmur, gallop, rubs, systolic murmur - GI/Abdominal GI/Abdominal exam: Present: normal bowel sounds, soft, no peritoneal signs. Absent: distended, tenderness - Extremities Exam Extremities exam: Present: warm, radial pulses palpable and symmetrical. Absent : calf tenderness, cyanotic, pedal edema - Neurological Exam Neurological exam: Present: CN II-XII intact, oriented X3, no focal deficits, speech deficit (Speech is mildly choppy but generally fluent and appropriate). Absent: pronater drift, facial droop Additional comments: There is tremor in the hands and arms bilaterally - Skin Skin exam: Present: dry, intact Internal Medicine: Result - Labs CBC & Chem 7: 08/31/17 04:07 09/01/17 08:39 Labs: BMP 09/01/17 08:39 Sodium 136 Potassium 4.7 H Chloride 99 Carbon Dioxide 31 H BUN 11 Creatinine 0.98 Glucose 84 Calcium 9.1 - ABG Interpretation ABG results: ABG ABG pH 7.38 pH Units (7.32-7.45) 08/29/17 10:07 ABG pCO2 53 mmHg (35-45) H 08/29/17 10:07 ABG pO2 80 mmHg (85-104) L 08/29/17 10:07 ABG O2 Saturation 95 % (95-98) 08/29/17 10:07 - VTE Reasons for not Prescribing Prophylaxis: Not indicated-Anticoagulated or INR therapeutic Consult Discharge Plan - Plan [facility]errals: [facility] [Primary Care Provider] - <Chalino Moreno - Last Filed: 09/01/17 17:03> Date of Encounter: 09/01/17 - Assessment and plan (1) Acute hypercapnic respiratory failure Current Visit: Yes Status: Resolved (2) NSTEMI (non-ST elevated myocardial infarction) Current Visit: Yes Status: Acute (3) Pneumonia Current Visit: Yes Status: Acute Qualifiers: Pneumonia type: due to other aerobic Gram-negative bacteria Laterality: right Lung location: lower lobe of lung Qualified Code(s): J15.6 - Pneumonia due to other Gram-negative bacteria (4) Hypertension Current Visit: Yes Status: Chronic Qualifiers: Hypertension type: essential hypertension Qualified Code(s): I10 - Essential (primary) hypertension (5) Acute exacerbation of chronic obstructive airways disease Current Visit: No Status: Resolved (6) Congestive heart failure Current Visit: No Status: Chronic Qualifiers: Congestive heart failure type: diastolic Congestive heart failure chronicity: chronic Qualified Code(s): I50.32 - Chronic diastolic (congestive ) heart failure (7) 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, type II Current Visit: No Status: Chronic Qualifiers: 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 complication status: with circulatory complication 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 complication detail: with other circulatory complications 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 vermin exterminator insulin use: with vermin exterminator use Qualified Code(s) : E11.59 - Type 2 diabetes mellitus with other circulatory complications; Z79.4 - penitentiary (current) use of insulin; Z79.4 - exterminator helper termite (current) use of insulin ; Z79.4 - exterminator helper termite (current) use of insulin; Z79.4 - penitentiary (current) use of insulin (8) Tobacco abuse Current Visit: No Status: Chronic - Constitutional Vitals: Temp Pulse Resp BP Pulse Ox 97.9 F 71 16 130/97 99 09/01/17 15:46 09/01/17 15:46 09/01/17 15:50 09/01/17 15:46 09/01/17 15:50 Internal Medicine: Result - Labs CBC & Chem 7: 08/31/17 04:07 09/01/17 08:39 Labs: BMP 09/01/17 08:39 Sodium 136 Potassium 4.7 H Chloride 99 Carbon Dioxide 31 H BUN 11 Creatinine 0.98 Glucose 84 Calcium 9.1 - ABG Interpretation ABG results: ABG ABG pH 7.38 pH Units (7.32-7.45) 08/29/17 10:07 ABG pCO2 53 mmHg (35-45) H 08/29/17 10:07 ABG pO2 80 mmHg (85-104) L 08/29/17 10:07 ABG O2 Saturation 95 % (95-98) 08/29/17 10:07 - Attending Attestation I examined this patient and my medical decision-making was reviewed with the Resident Physician on 09/01/17. I agree with the documented findings, disposition and treatment plan as described except to the extent set forth below. Mr Thompson is currently admitted with septic shock and multi system organ failure. He has been transferred from ICU. He remains moderate to high risk due to potential for worsening clinical status. Mr Thompson is up in the chair. He tolerated lunch No fever or chills. No CP or SOB. Still feels shaky and weak. No GI issues. Exam Alert. Comfortable Heart reg Lungs clear Abd soft Mucus membranes dry I/P - 1. Septic shock - resolved 2. PNA Further diagnoses and plan as above.
[2017-09-01] MEDS: Insulin DETEMIR 100 UNIT/ML X5UNITS SQ SCH ×2 (11:51→22:48)
--- NOTE | 2017-09-01 11:56 | Cardiology Progress Note ---
Date of Encounter: 09/01/17 Time of Encounter: 09:00 Assessment and Plan (1) NSTEMI (non-ST elevated myocardial infarction) Current Visit: Yes Status: Acute Patient is a 61 yo male with PMHx of non-compliant COPD, type 2 diabetes, tobacco use, CHF, HTN, hyperlipidemiawho presented altered, dypsneic, and in septic shock (currently resolved). EKG was independently read and demonstrates ST depressions on Leads V3, V4, V5 when compared to Mar, 2017. Troponins 0.48<1.38<2.46<3.93<4.69. Limited Echo demonstrates EF 60-65% with dilated and hypokinetic right ventricle, atypical septal wall motion. Status post-operative [facility] day #1. Right forearm incision clean and dry without signs of bleeding or hematoma. Mild 3V disease was noted with EF = 60%, 40% stenosis of proximal LAD, 30% mid LAD, 30% mid RCA. We recommend medical management and risk factor modification. Continue with ASA and statin. Follow- up with outpatient cardiology. No surgical intervention required at this time. Cardiology is signing off. Thank you for your consult. (2) Thrombocytopenia Current Visit: Yes Status: Acute Platelet count <100 but stable. Hemonc reports thrombocytopenia likely secondary to sepsis and bactrum. Will continue to follow with a.m. labs. (3) Carotid stenosis, asymptomatic Current Visit: No Status: Acute Patient has left distal carotid stenosis of 60-79%, confirmed with carotid duplex on March 2017. Follow-up with outpatient cardiology and repeat carotid duplex in 1 year. Qualifiers: Qualified Code(s): I65.22 - Occlusion and stenosis of left carotid artery (4) Hypertension Current Visit: Yes Status: Acute Continue with metoprolol 75 mg PO BID. Qualifiers: Qualified Code(s): I10 - Essential (primary) hypertension (5) Elevated liver enzymes Current Visit: Yes Status: Acute Elevated AST/ALT likely secondary to sepsis and acute presentations. Atorvastatin 40mg PO HS started. Discussion w patient/family: The assessment and plan as outlined above was discussed with the patient and/or family members who expressed understanding and agreement. All questions were answered. Thank you for involving us in the care of your patient. Please call with any questions. Subjective Principal diagnosis: NSTEMI Interval history: Patient has improved mentation and kidney function. He has been alert and oriented to name, place, and time. No acute overnight events. Denies fever, chills, lightheadedness, chest pain, diaphoresis, palpitations, nausea, vomiting. No difficulty voiding via kc. Admits to bowel movement yesterday night. He has no acute complaints. Objective Vital Signs, Last 4 Hours Resp BP Pulse Ox 09/01/17 11:40 16 160/69 99 General: Conversant, No Apparent Distress HEENT: Atraumatic, Normocephaly, Mucus Membranes Moist Neck: No JVD, Normal carotid pulses Cardiac: Reg Rate and Rhythm, Normal S1 and S2, No Murmur Lungs: Normal Breath Sounds, No Wheeze, Rales, Rhonchi Neuro: Alert and responsive, No focal deficits noted Abdomen: Soft, Non-Tender Skin: No rashes noted on visualized skin Musculoskeletal: No Chest Wall Tenderness Extremities: No Clubbing, No Cyanosis, Normal Pulses, Other (Bilateral LE edema 3+ ) Results 08/31/17 04:07 09/01/17 08:39 Lab Results 09/01/17 08:39 Sodium 136 Potassium 4.7 H Chloride 99 Carbon Dioxide 31 H BUN 11 Creatinine 0.98 Glucose 84 Calcium 9.1 - VTE Reasons for not Prescribing Prophylaxis: Not indicated-Anticoagulated or INR therapeutic Consult Discharge Plan - Plan [facility]errals: [facility] [Primary Care Provider] -
[2017-09-01] MEDS: OLANZapine 10 MG TAB.RAPDIS PO SCH (20:04)
[2017-09-02] MEDS: Ipratropium/Albuterol Neb 3 ML IH SCH ×5 (04:02→20:36)
[2017-09-02 04:12] LABS: Basophils % 0.4 %; Immature Granulocytes % 0.4 % (0-4); Red Blood Count 3.72 M/mcL (4.19-5.50); Red Cell Distribution Width 13.8 % (11.5-14.5)
[2017-09-02 04:14] LABS: Eosinophils # 0.1 K/mcL (0.0-0.6); Eosinophils % 2.3 %; Hematocrit 35.1 % (37.5-50.1); Hemoglobin 10.8 g/dL (12.9-16.9); Immature Platelets 7.4 % (1.1-6.1); Lymphocytes # 1.3 K/mcL (0.6-4.6); Mean Corpuscular HGB Conc 30.8 g/dL (31.6-35.5); Mean Corpuscular Volume 94.4 fL (83.0-100.0); Monocytes # 0.5 K/mcL (0.0-1.3); Neutrophils # 3.3 K/mcL (1.6-8.9); Segmented Neutrophils % 62.9 %
[2017-09-02 04:20] LABS: Platelet Count 92 K/mcL (140-400)
[2017-09-02 04:25] LABS: BUN/Creatinine Ratio 12 (6-26); Blood Urea Nitrogen 13 mg/dL (8-26); Calcium 9.2 mg/dL (8.6-10.8); Carbon Dioxide 30 mEq/L (19-29); Chloride 99 mEq/L (98-109); Glucose 90 mg/dL (70-99); Osmolality,Calculated 280 (280-300); Sodium 135 mEq/L (136-145); eGFR For African Americans > 60 (> 60); eGFR For Non-African Americans > 60 (> 60)
[2017-09-02 04:41] LABS: Potassium 4.7 mEq/L (3.5-4.5)
[2017-09-02] MEDS: levETIRAcetam 250 MG TABLET PO SCH ×2 (06:04→17:34)
[2017-09-02] MEDS: *HR* Heparin 5,000 UNIT/ML VIAL SQ SCH ×2 (06:04→17:42)
[2017-09-02] MEDS: *HR* OxyCODONE/APAP 5/325 TABLET PO PRN ×3 (06:11→22:11)
[2017-09-02] MEDS: Insulin LISPRO 300 UNITS/3 ML VIAL SQ SCH ×4 (08:41→23:17)
[2017-09-02] MEDS: Aspirin 81 MG TAB.CHEW PO SCH (08:57)
[2017-09-02] MEDS: Nicotine 14 MG PATCH.TD24 TD SCH (08:57)
[2017-09-02] MEDS: Insulin DETEMIR 100 UNIT/ML X5UNITS SQ SCH ×2 (09:03→23:18)
[2017-09-02] MEDS ORDERED: *HR* LORazepam 2 MG/ML VIAL IVP ONE (11:21)
[2017-09-02 11:24] LABS: ABG Base Excess 5 mEq/L (-2 to 3); ABG HCO3 32 mEq/L (21-27); ABG Oxygen Saturation 95 % (95-98); ABG PCO2 57 mmHg (35-45); ABG PH 7.36 pH Units (7.32-7.45); ABG PO2 83 mmHg (85-104); ABG TCO2 34 mEq/L (20-26)
--- NOTE | 2017-09-02 13:06 | Internal Med Progress Note ---
<Andre Trinh - Last Filed: 09/02/17 15:49> Date of Encounter: 09/02/17 Time of Encounter: 09:00 - Assessment and plan (1) Altered mental status Current Visit: Yes Status: Resolved Assessment and plan: The patient experienced brief episode of unconsciousness Repeat head CT was negative, ABG wnl, Blood glucose wnl Neurology will reevaulate the patient Qualifiers: Altered mental status type: disorientation Qualified Code(s): R41.0 - Disorientation, unspecified (2) Sepsis with multi-organ dysfunction Current Visit: Yes Status: Resolved (3) Acute hypercapnic respiratory failure Current Visit: Yes Status: Resolved (4) 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, type II Current Visit: No Status: Chronic Assessment and plan: continue sliding scale insulin algorithm monitor FS and BG ADA diet Qualifiers: 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 complication status: with circulatory complication 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 complication detail: with other circulatory complications 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 group home insulin use: with group home use Qualified Code(s) : E11.59 - Type 2 diabetes mellitus with other circulatory complications; Z79.4 - FDC (current) use of insulin; Z79.4 - terminal supervisor (current) use of insulin ; Z79.4 - terminal supervisor (current) use of insulin; Z79.4 - terminal supervisor (current) use of insulin (5) Acute kidney failure, unspecified Current Visit: Yes Status: Resolved Qualifiers: Acute renal failure type: unspecified Qualified Code(s): N17.9 - Acute kidney failure, unspecified (6) Thrombocytopenia Current Visit: Yes Status: Acute Assessment and plan: Improving (7) Obesity (BMI 30-39.9) Current Visit: Yes Status: Chronic (8) DVT prophylaxis Current Visit: Yes Status: Acute Assessment and plan: SQ Heparin - Subjective Interval history: The patient was seen and examined at bedside, had no acute concerns overnight. At approximately 11:00am, I was alerted by nurse that the patient had become unresponsive. I saw the patient and he was unarousable by voice or sternal rub. He appeared to be experiencing muscle fasciculation. A stat ABG and Head CT were ordered, which were both WNL. The patient regained consciousness and alertness at approximately 11:30am without any evidence of overt post-ictal state. The patient recieved 0.5mg ativan, and has been resting comfortably since. We will speak with neuro to reevaluate the patient, and to make recommendations. Patient was accepted as transfer from ICU. He was admitted to the ICU with septic shock, acute renal failure, hypoxic respiratory failure with respiratory acidosis, and required intubation for airway management. Since that time, patient has been successfully extubated, kidneys have returned to baseline function, and the patient is no longer altered. Chart reviewed, agreed with course of current treatment plan. Cardiology, pulmonology, oncology, neurology consulted. PT/OT Recommend swing bed. - Constitutional Vitals: Temp Pulse Resp BP Pulse Ox 98.2 F 66 16 126/63 94 09/02/17 11:20 09/02/17 11:20 09/02/17 11:20 09/02/17 11:20 09/02/17 11:20 General appearance: Present: A&O X 3, no acute distress, obese, answers questions appropriately Exam: - Head Head exam: Present: atraumatic, normocephalic - Eye Eye exam: Present: PERRL, conjuntiva pink, sclera anicteric Pupils: Present: PERRL - Neck Neck exam general surgery: Present: supple, trachea midline. Absent: lymphadenopathy - Respiratory Respiratory exam: Present: CTAB. Absent: accessory muscle use, rales, rhonchi, wheezes - Cardiovascular Cardiovascular exam: Present: RRR, +S1, +S2. Absent: diastolic murmur, gallop, rubs, systolic murmur - GI/Abdominal GI/Abdominal exam: Present: normal bowel sounds, soft, no peritoneal signs. Absent: distended, tenderness - Extremities Exam Extremities exam: Present: warm, radial pulses palpable and symmetrical. Absent : calf tenderness, cyanotic, pedal edema - Neurological Exam Neurological exam: Present: CN II-XII intact, oriented X3, no focal deficits, speech deficit (Speech is mildly choppy but generally fluent and appropriate). Absent: pronater drift, facial droop Additional comments: There is tremor in the hands and arms bilaterally - Skin Skin exam: Present: dry, intact Internal Medicine: Result - Labs CBC & Chem 7: 09/02/17 03:55 09/02/17 03:55 Labs: Short CBC 09/02/17 Range/Units 03:55 WBC 5.3 (4.3-11.1) K/mcL Hgb 10.8 L (12.9-16.9) g/dL Hct 35.1 L (37.5-50.1) % Plt Count 92 L (140-400) K/mcL Neutrophils # 3.3 (1.6-8.9) K/mcL BMP 09/02/17 03:55 Sodium 135 L Potassium 4.7 H Chloride 99 Carbon Dioxide 30 H BUN 13 Creatinine 1.05 Glucose 90 Calcium 9.2 - ABG Interpretation ABG results: ABG ABG pH 7.36 pH Units (7.32-7.45) 09/02/17 11:20 ABG pCO2 57 mmHg (35-45) H 09/02/17 11:20 ABG pO2 83 mmHg (85-104) L 09/02/17 11:20 ABG O2 Saturation 95 % (95-98) 09/02/17 11:20 - Impressions Impressions Head CT 09/02/17 11:20 IMPRESSION: 1. No acute intracranial abnormality. 2. Global parenchymal volume loss with chronic microvascular ischemic change. 3. Encephalomalacia involving the inferior frontal lobes bilaterally, which may represent sequelae of a prior insult. 4. Minimal atherosclerosis. D/ / Luis Alberto Ivey MD / Luis Alberto Ivey MD Interpreting Provider: Luis Alberto Ivey MD - VTE Reasons for not Prescribing Prophylaxis: Not indicated-Anticoagulated or INR therapeutic Consult Discharge Plan - Plan [facility]errals: [facility] [Primary Care Provider] - <Chalino Moreno - Last Filed: 09/02/17 18:38> Date of Encounter: 09/02/17 - Assessment and plan (1) Acute hypercapnic respiratory failure Current Visit: Yes Status: Resolved (2) Seizure disorder Current Visit: Yes Status: Acute (3) NSTEMI (non-ST elevated myocardial infarction) Current Visit: Yes Status: Acute (4) Pneumonia Current Visit: Yes Status: Acute Qualifiers: Pneumonia type: due to other aerobic Gram-negative bacteria Laterality: right Lung location: lower lobe of lung Qualified Code(s): J15.6 - Pneumonia due to other Gram-negative bacteria (5) Hypertension Current Visit: Yes Status: Chronic Qualifiers: Hypertension type: essential hypertension Qualified Code(s): I10 - Essential (primary) hypertension (6) Acute exacerbation of chronic obstructive airways disease Current Visit: No Status: Resolved (7) Congestive heart failure Current Visit: No Status: Chronic Qualifiers: Congestive heart failure type: diastolic Congestive heart failure chronicity: chronic Qualified Code(s): I50.32 - Chronic diastolic (congestive ) heart failure (8) 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, type II Current Visit: No Status: Chronic Qualifiers: 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 complication status: with circulatory complication 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 complication detail: with other circulatory complications 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 group home insulin use: with long term care administrator use Qualified Code(s) : E11.59 - Type 2 diabetes mellitus with other circulatory complications; Z79.4 - terminal supervisor (current) use of insulin; Z79.4 - FDC (current) use of insulin ; Z79.4 - terminal supervisor (current) use of insulin; Z79.4 - terminal supervisor (current) use of insulin (9) Tobacco abuse Current Visit: No Status: Chronic - Constitutional Vitals: Temp Pulse Resp BP Pulse Ox 98.6 F 74 16 147/85 94 09/02/17 15:17 09/02/17 15:17 09/02/17 15:29 09/02/17 15:29 09/02/17 15:29 Internal Medicine: Result - Labs CBC & Chem 7: 09/02/17 03:55 09/02/17 03:55 Labs: Short CBC 09/02/17 Range/Units 03:55 WBC 5.3 (4.3-11.1) K/mcL Hgb 10.8 L (12.9-16.9) g/dL Hct 35.1 L (37.5-50.1) % Plt Count 92 L (140-400) K/mcL Neutrophils # 3.3 (1.6-8.9) K/mcL BMP 09/02/17 03:55 Sodium 135 L Potassium 4.7 H Chloride 99 Carbon Dioxide 30 H BUN 13 Creatinine 1.05 Glucose 90 Calcium 9.2 Urine 09/02/17 Range/Units 14:10 Urine Color Yellow (Yellow) Urine Clarity Clear (Clear) Urine pH 6.5 (5.0-8.0) pH Units Ur Specific [place] 1.016 (1.010-1.025) Urine Protein Negative (Neg-Trace) mg/dL Urine Glucose (UA) Normal (Normal) mg/dL - ABG Interpretation ABG results: ABG ABG pH 7.36 pH Units (7.32-7.45) 09/02/17 11:20 ABG pCO2 57 mmHg (35-45) H 09/02/17 11:20 ABG pO2 83 mmHg (85-104) L 09/02/17 11:20 ABG O2 Saturation 95 % (95-98) 09/02/17 11:20 - Impressions Impressions Head CT 09/02/17 11:20 IMPRESSION: 1. No acute intracranial abnormality. 2. Global parenchymal volume loss with chronic microvascular ischemic change. 3. Encephalomalacia involving the inferior frontal lobes bilaterally, which may represent sequelae of a prior insult. 4. Minimal atherosclerosis. D/ / Luis Alberto Ivey MD / Luis Alberto Ivey MD Interpreting Provider: Luis Alberto Ivey MD - Attending Attestation I examined this patient and my medical decision-making was reviewed with the Resident Physician on 09/02/17. I agree with the documented findings, disposition and treatment plan as described except to the extent set forth below. Mr. Thompson is currently admitted for sepsis resulting in multisystem organ failure. He was to go to rehab today but had episode of unresponsiveness possibly seizure. He remains moderate to high risk due to potential for worsening neuro status. Mr Thompson felt OK this AM. He then had episode of unresponsiveness this morning. He was "twitchy" and unable to follow commands. No fever or chills. No GI issues. No CP or SOB. Exam Alert now. Comfortable Mucus membranes dry Heart reg No wheeze Abd soft I/P 1. Unresponsive - ? seizure 2. Sepsis resolved Further diagnoses and plan as above.
[2017-09-02 14:24] LABS: Bilirubin,Urine Negative (Negative); Blood,Urine Large (Negative); Clarity,Urine Clear (Clear); Color,Urine Yellow (Yellow); Glucose,Urine (UA) Normal (Normal); Ketones,Urine Negative (Negative); Leukocyte Esterase,Urine Negative (Negative); Nitrite,Urine Negative (Negative); PH,Urine 6.5 pH Units (5.0-8.0); Protein,Urine Negative (Neg-Trace); Specific Gravity,Urine 1.016 (1.010-1.025); Urobilinogen,Urine Normal (Normal)
[2017-09-02 14:27] LABS: Bacteria,Urine None Seen per hpf (None-Few); Hyaline Casts,Urine None Seen per lpf (None-Few); RBC,Urine TNTC per hpf (0-3); Squamous Epithelial Cell,Urine Few per lpf (None-Few); WBC,Urine 0-3 per hpf (0-3)
--- NOTE | 2017-09-02 16:15 | Neurology - Consult Note ---
Date of Encounter: 09/02/17 Time of Encounter: 16:11 Assessment and Plan (1) Seizure disorder Current Visit: Yes Status: Acute Has history of grand mal type of seizure in the past however, he has not had typical GTC for many years while on Keppra 250mg bid. The recent occurrence of spell with altered mental status is of unclear etiology and could be non- epileptic or related to excessive daytime sleepiness? but complex partial seizure can not be excluded and therefore will treat more aggressively with keppra 1000mg bid. Will see him in [place] with me in 2-3 weeks. Anticipate an outpatient sleep study. Please continue medical and supportive care History of Present Illness Chief complaint: seizure like activity HPI: Mr. Thompson is a 61 year old male with PMH significant for seizure disorder, history of alcohol abuse, hepatitis C, who underwent prolonged hospital stay due to sepsis, acute renal failure respiratory failure who was transferred out of ICU onto the medical floor. He was ready to be discharged to rehab facility at [place] due to improvement of his medical conditions and suddenly he developed recurrent episode of altered mental status concerning for seizure. Reportedly patient become unresponsive, without motor activity, tongue biting and urinary incontinence. He had an EEG earlier during the hospitalization which was reported normal study. In terms of his seizure disorder, he had his first seizure during 1993. He quit drinking 1989, after found to have hepatitis C. He had grand mal type of seizures. He was taking Dilantin. His last grand mal seizure at least 3-4 years more. Recently, however, he was told by his that he has these episodes where he became unresponsive without motor activity. He does have essential tremors therefore some of the episodes can be associated with tremors. With his usual grand mal seizure he used to have prolonged postictal symptoms but with these recent events he would become alert more quickly. At times during the episodes he could hear but can not respond. Past Med Surg Social Fam HX - Past Medical History Medical history: cirrhosis, CHF, COPD, coronary artery disease, diabetes, hepatitis (C), hyperlipidemia, hypertension, liver disease, myocardial infarction (in mid ), other (chronic smoker) Psychiatric history: anxiety, depression - Past Surgical History Surgical History: cholecystectomy, orthopedic, other (ankle), other - Social History Smoking Status: Current every day smoker (1PPD) Smokeless Tobacco Status: No Alcohol use: none Drug use: none, other - Family History Mother History Unknown: Yes Living Status: Still Living Hx Family Endocrine Disorder: Yes (DM) Father Living Status: Still Living Hx Family Cardiac Disorders: Yes (PA, CABG) Hx Family Endocrine Disorder: Yes (DM) Medications and Allergies Aspirin 81 mg PO DAILY 03/15/16 [History] Cholecalciferol (Vitamin D3) [Vitamin D3] 1,000 unit PO BID 03/15/16 [History] Insulin NPH/REG 70/30 (HUMAN) [Humulin 70/30 Vial] 10 unit SQ QPM 03/15/16 [ History] Insulin NPH/REG 70/30 (HUMAN) [Humulin 70/30 Vial] 12 unit SQ QAM 03/15/16 [ History] Magnesium 400 mg PO BID 03/15/16 [History] Budesonide/Formoterol 80/4.5 [Symbicort 80/4.5] 2 puff IH BIDR #2 inhaler 03/17 [Rx] Cyanocobalamin (Vitamin B-12) [Vitamin B12] 1,000 mcg PO BID 04/03/17 [History] Loratadine [Allergy Relief] 10 mg PO DAILY 04/03/17 [History] Omeprazole 20 mg PO DAILY 04/03/17 [History] Tiotropium [Spiriva] 18 mcg IH DAILY 04/03/17 [History] levETIRAcetam [Keppra] 250 mg PO BID 04/03/17 [History] Albuterol Sulfate [Ventolin Hfa] 1 puff IH Q4H PRN 04/04/17 [History] Aripiprazole [Abilify] 7.5 mg PO QAM 04/04/17 [History] Bisacodyl [Dulcolax] 5 mg PO DAILY PRN 04/04/17 [History] Lactulose 10 gm PO DAILY PRN 04/04/17 [History] Multivitamin-Min/Iron/FA/Vit K [Multi-Day Plus Minerals Tablet] 1 each PO DAILY 04/04/17 [History] Simvastatin [Zocor] 20 mg PO HS 04/04/17 [History] Oxycodone HCl/Acetaminophen [Percocet 5-325 mg Tablet] 1 tab PO Q8H PRN [History] 3 Allergy/AdvReac Type Severity Reaction Status Date / Time No Known Allergies Allergy Verified 03/15/16 17:09 All Systems: A 10-system review of systems was performed and is negative for pertinent findings except as documented above in the HPI. Physical Examination - Vital Signs Vital Signs: Initial Vital Signs Temp Pulse Resp BP Pulse Ox 97.3 F L 62 14 84/45 100 08/21/17 21:30 08/21/17 21:30 08/21/17 21:30 08/21/17 21:30 08/21/17 21:30 - Constitutional General appearance: chronically ill - Neurologic Sensorimotor examination: intact Detailed motor examination: grossly full strength in all extremities Motor examination - right side: 5/5: deltoids, biceps, triceps, wrist flexion, wrist extension, student education specialist, hip flexors, tibialis Anterior, quadriceps, toe extension (EHL), plantarflexion Motor examination - left side: 5/5: deltoids, biceps, triceps, wrist flexion, wrist extension, hip flexors, student education specialist, quadriceps, tibialis Anterior, toe extension (EHL), plantarflexion Detailed sensory examination: intact Posture: other (none) Reflex and gait examination: intact Reflexes: Biceps: 1+, Triceps: 1+, Brachioradialis: 1+, Patella: 1+, Achilles: 1 + Mental Status Examination: awake, alert, oriented to person, oriented to place, oriented to time, follows commands appropriately, answers questions appropriately, no agnosia, no aphasia, no aproxia Cranial nerve examination: PERRL, EOMI, visual villasenor intact, corneal reflexes brisk symmetrically, sensory to face intact, mastication intact, no facial asymmetry is present, no dysarthria, hearing is intact symmetrically, soft palate elevates bilaterally upon phonation, gag reflex intact, flexes SCM and trapezius muscles symmetrically with full power, tongue protrudes midline, no atrophy or facial fasiculations present Results - Laboratory Findings CBC and BMP: 09/02/17 03:55 09/02/17 03:55 Abnormal lab findings: Abnormal lab results RBC 3.72 M/mcL (4.19-5.50) L 09/02/17 03:55 Hgb 10.8 g/dL (12.9-16.9) L 09/02/17 03:55 Hct 35.1 % (37.5-50.1) L 09/02/17 03:55 MCHC 30.8 g/dL (31.6-35.5) L 09/02/17 03:55 Plt Count 92 K/mcL (140-400) L 09/02/17 03:55 Nucleated RBCs/100 WBC 0.9 /100 WBC (0) H 08/22/17 05:00 Platelet Estimate Decreased (Normal) L 08/31/17 04:07 Large Platelets Present (Not Present) A 08/31/17 04:07 Immature Plt Fraction 7.4 % (1.1-6.1) H 09/02/17 03:55 Polychromasia 1+ (Not Present) A 08/21/17 23:15 Hypochromasia Present (Not Present) A 08/21/17 23:15 Anisocytosis 1+ (Not Present) A 08/31/17 04:07 Macrocytosis Present (Not Present) A 08/21/17 23:15 APTT 105.1 Seconds (26.0-36.0) H 08/24/17 02:21 ABG pCO2 57 mmHg (35-45) H 09/02/17 11:20 ABG pO2 83 mmHg (85-104) L 09/02/17 11:20 ABG HCO3 32 mEq/L (21-27) H 09/02/17 11:20 ABG Total CO2 34 mEq/L (20-26) H 09/02/17 11:20 ABG Base Excess 5 mEq/L (-2 to 3) H 09/02/17 11:20 Sodium 135 mEq/L (136-145) L 09/02/17 03:55 Potassium 4.7 mEq/L (3.5-4.5) H 09/02/17 03:55 Carbon Dioxide 30 mEq/L (19-29) H 09/02/17 03:55 POC Glucose 108 (58-89) H 09/02/17 07:10 Hemoglobin A1c 6.5 % (-5.6) H 08/22/17 05:00 AST 44 Units/L (5-34) H 08/30/17 09:22 ALT 70 Units/L (0-55) H 08/30/17 09:22 Troponin I 0.48 ng/mL (0-0.03) H* 08/27/17 19:23 Albumin 3.3 g/dL (3.5-5.0) L 08/30/17 09:22 Albumin/Globulin Ratio 1.0 (1.1-2.2) L 08/30/17 09:22 Urine Blood Large (Negative) H 09/02/17 14:10 Urine Microscopic RBC TNTC per hpf (0-3) H 09/02/17 14:10 Urine Opiates Screen Positive ng/mL (Qwecqc=885) H 08/22/17 02:15 U Benzodiazepines Scrn Positive ng/mL (Thnqgz=545) H 08/22/17 02:15 Consult Discharge Plan - Plan [facility]errals: [facility] [Primary Care Provider] -
[2017-09-02] MEDS: OLANZapine 10 MG TAB.RAPDIS PO SCH (22:06)
[2017-09-03 00:33] LABS: Basophils % 0.3 %; Eosinophils # 0.2 K/mcL (0.0-0.6); Eosinophils % 2.5 %; Hemoglobin 10.6 g/dL (12.9-16.9); Immature Granulocytes % 0.2 % (0-4); Lymphocytes # 1.6 K/mcL (0.6-4.6); Lymphocytes % 25.2 %; Mean Corpuscular HGB Conc 31.2 g/dL (31.6-35.5); Mean Corpuscular Hemoglobin 29.2 pg (28.0-33.3); Mean Corpuscular Volume 93.7 fL (83.0-100.0); Mean Platelet Volume 11.4 fL (9.4-12.4); Monocytes # 0.5 K/mcL (0.0-1.3); Monocytes % 7.6 %; Neutrophils # 4.1 K/mcL (1.6-8.9); Platelet Count 108 K/mcL (140-400); Red Blood Count 3.63 M/mcL (4.19-5.50); Red Cell Distribution Width 13.8 % (11.5-14.5); Segmented Neutrophils % 64.2 %
[2017-09-03 00:43] LABS: BUN/Creatinine Ratio 15 (6-26); Blood Urea Nitrogen 17 mg/dL (8-26); Calcium 9.4 mg/dL (8.6-10.8); Carbon Dioxide 30 mEq/L (19-29); Chloride 100 mEq/L (98-109); Glucose 103 mg/dL (70-99); Osmolality,Calculated 286 (280-300); Potassium 4.6 mEq/L (3.5-4.5); Sodium 137 mEq/L (136-145); eGFR For African Americans > 60 (> 60); eGFR For Non-African Americans > 60 (> 60)
[2017-09-03] MEDS: Ipratropium/Albuterol Neb 3 ML IH SCH ×7 (02:30→23:13)
[2017-09-03] MEDS: *HR* Heparin 5,000 UNIT/ML VIAL SQ SCH ×2 (05:59→17:58)
[2017-09-03] MEDS: levETIRAcetam 250 MG TABLET PO SCH ×2 (06:00→16:25)
[2017-09-03] MEDS: *HR* OxyCODONE/APAP 5/325 TABLET PO PRN ×3 (06:03→17:59)
[2017-09-03] MEDS: Nicotine 14 MG PATCH.TD24 TD SCH (08:54)
[2017-09-03] MEDS: Aspirin 81 MG TAB.CHEW PO SCH (08:54)
[2017-09-03] MEDS: Insulin DETEMIR 100 UNIT/ML X5UNITS SQ SCH ×2 (09:02→20:38)
[2017-09-03] MEDS: Insulin LISPRO 300 UNITS/3 ML VIAL SQ SCH ×4 (09:02→20:39)
--- NOTE | 2017-09-03 15:53 | Internal Med Progress Note ---
Date of Encounter: 09/03/17 Time of Encounter: 11:00 - Assessment and plan (1) Acute hypercapnic respiratory failure Current Visit: Yes Status: Resolved Assessment and plan: No respiratory issues today. (2) Seizure disorder Current Visit: Yes Status: Acute Assessment and plan: Currently on higher dose of Keppra till follows with neurology. (3) NSTEMI (non-ST elevated myocardial infarction) Current Visit: Yes Status: Acute Assessment and plan: Asymptomatic at this time. (4) Pneumonia Current Visit: Yes Status: Acute Assessment and plan: Has completed antibiotics. Continue to follow. Qualifiers: Pneumonia type: due to other aerobic Gram-negative bacteria Laterality: right Lung location: lower lobe of lung Qualified Code(s): J15.6 - Pneumonia due to other Gram-negative bacteria (5) Hypertension Current Visit: Yes Status: Chronic Assessment and plan: Controlled at this time. Qualifiers: Hypertension type: essential hypertension Qualified Code(s): I10 - Essential (primary) hypertension (6) Acute exacerbation of chronic obstructive airways disease Current Visit: No Status: Resolved Assessment and plan: Resolved currently. (7) Congestive heart failure Current Visit: No Status: Chronic Assessment and plan: No issues currently. Qualifiers: Congestive heart failure type: diastolic Congestive heart failure chronicity: chronic Qualified Code(s): I50.32 - Chronic diastolic (congestive ) heart failure (8) 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, type II Current Visit: No Status: Chronic Assessment and plan: continue sliding scale insulin algorithm monitor FS and BG ADA diet Qualifiers: 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 complication status: with circulatory complication 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 complication detail: with other circulatory complications 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 ferry terminal agent insulin use: with shelter use Qualified Code(s) : E11.59 - Type 2 diabetes mellitus with other circulatory complications; Z79.4 - [facility] (current) use of insulin; Z79.4 - [facility] (current) use of insulin ; Z79.4 - extermination inspector (current) use of insulin; Z79.4 - [facility] (current) use of insulin (9) Tobacco abuse Current Visit: No Status: Chronic Assessment and plan: Cessation counselling. (10) Hyperkalemia Current Visit: Yes Status: Acute Assessment and plan: Following. Not on meds. (11) Thrombocytopenia Current Visit: Yes Status: Chronic Assessment and plan: Related to cirrhosis and illness. (12) Hepatitis C Current Visit: No Status: Chronic Assessment and plan: Supportive care. Qualifiers: Viral hepatitis chronicity: chronic Hepatic coma status: with hepatic coma Qualified Code(s): B18.2 - Chronic viral hepatitis C - Subjective Interval history: Mr. Thompson is currently admitted for sepsis with multisystem organ failure related to PNA. He had probable seizure yesterday. He remains moderate to high risk due to potential for worsening resp and neuro status. Mr. Thompson is up in chair. Son is visiting. No CP or SOB. No further neuro issues. No fever or chills. No cough. Off abx at this time. No GI issues. Pt to be discharged to rehab at the [facility] on Tuesday. - Constitutional Vitals: Temp Pulse Resp BP Pulse Ox 98.5 F 74 12 131/71 93 09/03/17 14:54 09/03/17 14:54 09/03/17 14:54 09/03/17 14:54 09/03/17 14:54 General appearance: Present: A&O X 3, obese, answers questions appropriately - Head Head exam: Present: normocephalic - Eye Eye exam: Present: EOMI, conjuntiva pink - ENT ENT exam: Present: mucous membranes moist - Respiratory Respiratory exam: Present: CTAB. Absent: rales, rhonchi, wheezes - Cardiovascular Cardiovascular exam: Present: RRR. Absent: tachycardia - GI/Abdominal GI/Abdominal exam: Present: normal bowel sounds, soft. Absent: tenderness - Extremities Exam Extremities exam: Present: warm. Absent: tenderness - Neurological Exam Neurological exam: Present: alert, oriented X3 - Skin Skin exam: Present: warm. Absent: rash Internal Medicine: Result - Labs CBC & Chem 7: 09/03/17 00:24 09/03/17 00:24 Labs: Short CBC 09/03/17 Range/Units 00:24 WBC 6.3 (4.3-11.1) K/mcL Hgb 10.6 L (12.9-16.9) g/dL Hct 34.0 L (37.5-50.1) % Plt Count 108 L (140-400) K/mcL Neutrophils # 4.1 (1.6-8.9) K/mcL BMP 09/03/17 00:24 Sodium 137 Potassium 4.6 H Chloride 100 Carbon Dioxide 30 H BUN 17 Creatinine 1.11 Glucose 103 H Calcium 9.4 - ABG Interpretation ABG results: ABG ABG pH 7.36 pH Units (7.32-7.45) 09/02/17 11:20 ABG pCO2 57 mmHg (35-45) H 09/02/17 11:20 ABG pO2 83 mmHg (85-104) L 09/02/17 11:20 ABG O2 Saturation 95 % (95-98) 09/02/17 11:20 - VTE Reasons for not Prescribing Prophylaxis: Not indicated-Anticoagulated or INR therapeutic Consult Discharge Plan - Plan [facility]errals: [facility] [Primary Care Provider] -
[2017-09-03] MEDS: OLANZapine 10 MG TAB.RAPDIS PO SCH (20:38)
[2017-09-04] MEDS: *HR* OxyCODONE/APAP 5/325 TABLET PO PRN ×4 (00:36→18:11)
[2017-09-04 03:14] LABS: BUN/Creatinine Ratio 12 (6-26); Blood Urea Nitrogen 17 mg/dL (8-26); Calcium 9.4 mg/dL (8.6-10.8); Carbon Dioxide 33 mEq/L (19-29); Chloride 100 mEq/L (98-109); Glucose 71 mg/dL (70-99); Magnesium 1.3 mg/dL (1.6-2.6); Osmolality,Calculated 288 (280-300); Potassium 4.4 mEq/L (3.5-4.5); Sodium 139 mEq/L (136-145); eGFR For African Americans > 60 (> 60); eGFR For Non-African Americans 52 (> 60)
[2017-09-04] MEDS: Ipratropium/Albuterol Neb 3 ML IH SCH ×6 (03:42→23:07)
[2017-09-04] MEDS: levETIRAcetam 250 MG TABLET PO SCH ×2 (04:02→18:11)
[2017-09-04] MEDS: *HR* Heparin 5,000 UNIT/ML VIAL SQ SCH ×2 (06:32→18:11)
[2017-09-04] MEDS: Aspirin 81 MG TAB.CHEW PO SCH (10:23)
[2017-09-04] MEDS: Nicotine 14 MG PATCH.TD24 TD SCH (10:24)
[2017-09-04] MEDS: Insulin LISPRO 300 UNITS/3 ML VIAL SQ SCH ×4 (10:28→23:51)
[2017-09-04] MEDS: Insulin DETEMIR 100 UNIT/ML X5UNITS SQ SCH ×2 (10:31→23:51)
--- NOTE | 2017-09-04 13:29 | Internal Med Progress Note ---
Date of Encounter: 09/04/17 Time of Encounter: 10:00 - Assessment and plan (1) Acute hypercapnic respiratory failure Current Visit: Yes Status: Resolved Assessment and plan: Resolved. No further respiratory issues at this time. (2) Seizure disorder Current Visit: Yes Status: Acute Assessment and plan: On Keppra 1000mg BID. No further seizure like episodes over weekend. To see Dr. Rdz as outpatient and have further sleep work up. (3) NSTEMI (non-ST elevated myocardial infarction) Current Visit: Yes Status: Acute Assessment and plan: No acute or new issues. (4) Pneumonia Current Visit: Yes Status: Acute Assessment and plan: Completed abx. No new issues. Qualifiers: Pneumonia type: due to other aerobic Gram-negative bacteria Laterality: right Lung location: lower lobe of lung Qualified Code(s): J15.6 - Pneumonia due to other Gram-negative bacteria (5) Hypertension Current Visit: Yes Status: Chronic Assessment and plan: Controlled at this time. Qualifiers: Hypertension type: essential hypertension Qualified Code(s): I10 - Essential (primary) hypertension (6) Congestive heart failure Current Visit: No Status: Chronic Assessment and plan: No issues currently. Qualifiers: Congestive heart failure type: diastolic Congestive heart failure chronicity: chronic Qualified Code(s): I50.32 - Chronic diastolic (congestive ) heart failure (7) 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, type II Current Visit: No Status: Chronic Assessment and plan: continue sliding scale insulin algorithm monitor FS and BG ADA diet Qualifiers: 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 complication status: with circulatory complication 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 complication detail: with other circulatory complications 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 shelter insulin use: with shelter use Qualified Code(s) : E11.59 - Type 2 diabetes mellitus with other circulatory complications; Z79.4 - penitentiary (current) use of insulin; Z79.4 - penitentiary (current) use of insulin ; Z79.4 - penitentiary (current) use of insulin; Z79.4 - surgical appliances salesperson (current) use of insulin (8) Tobacco abuse Current Visit: No Status: Chronic Assessment and plan: Cessation counselling. (9) Hyperkalemia Current Visit: Yes Status: Resolved Assessment and plan: Following. (10) Thrombocytopenia Current Visit: Yes Status: Chronic Assessment and plan: Continues to slowly improve. (11) Hepatitis C Current Visit: No Status: Chronic Assessment and plan: Supportive care. Qualifiers: Viral hepatitis chronicity: chronic Hepatic coma status: with hepatic coma Qualified Code(s): B18.2 - Chronic viral hepatitis C - Subjective Interval history: Mr. Thompson is currently admitted for sepsis with multisystem organ failure related to PNA. He had probable seizure as well and med adjusted. He remains moderate to high risk due to potential for worsening resp and neuro status. Mr. Thompson is resting comfortably. No fever or chills. No further seizure type activity. No events overnight. Appetite OK. Planning for discharge to [facility] rehab in the morning. - Constitutional Vitals: Temp Pulse Resp BP Pulse Ox 98.8 F 84 12 160/82 95 09/04/17 10:24 09/04/17 10:24 09/04/17 10:24 09/04/17 10:24 09/04/17 10:24 General appearance: Present: A&O X 3, obese, answers questions appropriately - Head Head exam: Present: normocephalic - Eye Eye exam: Present: conjuntiva pink - ENT ENT exam: Present: mucous membranes moist - Respiratory Respiratory exam: Present: CTAB. Absent: rales, rhonchi, wheezes - Cardiovascular Cardiovascular exam: Present: RRR. Absent: tachycardia - GI/Abdominal GI/Abdominal exam: Present: soft. Absent: tenderness - Extremities Exam Extremities exam: Present: warm. Absent: tenderness - Neurological Exam Neurological exam: Present: alert, oriented X3 - Skin Skin exam: Present: warm. Absent: rash Internal Medicine: Result - Labs CBC & Chem 7: 09/03/17 00:24 09/04/17 02:12 Labs: BMP 09/04/17 02:12 Sodium 139 Potassium 4.4 Chloride 100 Carbon Dioxide 33 H BUN 17 Creatinine 1.38 H Glucose 71 Calcium 9.4 - ABG Interpretation ABG results: ABG ABG pH 7.36 pH Units (7.32-7.45) 09/02/17 11:20 ABG pCO2 57 mmHg (35-45) H 09/02/17 11:20 ABG pO2 83 mmHg (85-104) L 09/02/17 11:20 ABG O2 Saturation 95 % (95-98) 09/02/17 11:20 - VTE Reasons for not Prescribing Prophylaxis: Not indicated-Anticoagulated or INR therapeutic Consult Discharge Plan - Plan [facility]errals: [facility] [Primary Care Provider] -
[2017-09-04] MEDS: OLANZapine 10 MG TAB.RAPDIS PO SCH (21:03)
[2017-09-05] MEDS: *HR* OxyCODONE/APAP 5/325 TABLET PO PRN ×2 (01:27→08:18)
[2017-09-05] MEDS: Ipratropium/Albuterol Neb 3 ML IH SCH ×3 (03:00→11:14)
[2017-09-05 04:02] LABS: Hematocrit 35.3 % (37.5-50.1); Hemoglobin 10.8 g/dL (12.9-16.9); Mean Corpuscular HGB Conc 30.6 g/dL (31.6-35.5); Mean Corpuscular Hemoglobin 29.6 pg (28.0-33.3); Mean Corpuscular Volume 96.7 fL (83.0-100.0); Mean Platelet Volume 11.8 fL (9.4-12.4); Platelet Count 100 K/mcL (140-400); Red Blood Count 3.65 M/mcL (4.19-5.50); Red Cell Distribution Width 13.7 % (11.5-14.5)
[2017-09-05 04:09] LABS: Alanine Aminotransferase 41 Units/L (0-55); Albumin 3.2 g/dL (3.5-5.0); Albumin/Globulin Ratio 0.9 (1.1-2.2); Alkaline Phosphatase 67 Units/L (38-126); Aspartate Amino Transferase 32 Units/L (5-34); BUN/Creatinine Ratio 17 (6-26); Bilirubin,Total 0.5 mg/dL (0.2-1.2); Blood Urea Nitrogen 18 mg/dL (8-26); Calcium 9.1 mg/dL (8.6-10.8); Carbon Dioxide 32 mEq/L (19-29); Chloride 101 mEq/L (98-109); Globulin 3.5 g/dL (2.4-3.5); Glucose 149 mg/dL (70-99); Magnesium 1.2 mg/dL (1.6-2.6); Osmolality,Calculated 295 (280-300); Potassium 4.2 mEq/L (3.5-4.5); Sodium 140 mEq/L (136-145); Total Protein 6.7 g/dL (6.0-8.3); eGFR For African Americans > 60 (> 60); eGFR For Non-African Americans > 60 (> 60)
[2017-09-05] MEDS: levETIRAcetam 250 MG TABLET PO SCH (04:18)
[2017-09-05] MEDS: *HR* Heparin 5,000 UNIT/ML VIAL SQ SCH (05:58)
[2017-09-05] MEDS ORDERED: Magnesium Sulfate 2 GM in D5% in Water 100 ML IVPB STA (08:15)
[2017-09-05] MEDS: Nicotine 14 MG PATCH.TD24 TD SCH (08:19)
[2017-09-05] MEDS: Aspirin 81 MG TAB.CHEW PO SCH (08:19)
[2017-09-05] MEDS: Insulin LISPRO 300 UNITS/3 ML VIAL SQ SCH ×2 (08:21→12:53)
--- NOTE | 2017-09-05 11:10 | Discharge Summary ---
Date of Encounter: 09/05/17 Time of Encounter: 09:30 - Discharge Diagnosis (1) Acute hypercapnic respiratory failure Priority: Primary Status: Resolved (2) Seizure disorder Priority: Secondary Status: Acute (3) NSTEMI (non-ST elevated myocardial infarction) Priority: Primary Status: Acute (4) Pneumonia Priority: Primary Status: Acute Qualifiers: Pneumonia type: due to other aerobic Gram-negative bacteria Laterality: right Lung location: lower lobe of lung Qualified Code(s): J15.6 - Pneumonia due to other Gram-negative bacteria (5) Hypertension Priority: Secondary Status: Chronic Qualifiers: Hypertension type: essential hypertension Qualified Code(s): I10 - Essential (primary) hypertension (6) Congestive heart failure Priority: Secondary Status: Chronic Qualifiers: Congestive heart failure type: diastolic Congestive heart failure chronicity: chronic Qualified Code(s): I50.32 - Chronic diastolic (congestive ) heart failure (7) 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, type II Priority: Secondary Status: Chronic Qualifiers: 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 complication status: with circulatory complication 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 complication detail: with other circulatory complications 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 local intermodal truck driver insulin use: with residential use Qualified Code(s) : E11.59 - Type 2 diabetes mellitus with other circulatory complications; Z79.4 - [facility] (current) use of insulin; Z79.4 - local company intermodal truck driver (current) use of insulin ; Z79.4 - local company intermodal truck driver (current) use of insulin; Z79.4 - local company intermodal truck driver (current) use of insulin (8) Tobacco abuse Priority: Secondary Status: Chronic (9) Hyperkalemia Priority: Secondary Status: Resolved (10) Thrombocytopenia Priority: Secondary Status: Chronic (11) Hepatitis C Priority: Secondary Status: Chronic Qualifiers: Viral hepatitis chronicity: chronic Hepatic coma status: without hepatic coma Qualified Code(s): B18.2 - Chronic viral hepatitis C - Discharge Medications Prescriptions: OxyCODONE/APAP 5/325 [Percocet 5/325 MG] 1 each PO Q6H PRN #10 tablet PRN Reason: Pain Home Medications: Aspirin 81 mg PO DAILY 03/15/16 [History] Cholecalciferol (Vitamin D3) [Vitamin D3] 1,000 unit PO BID 03/15/16 [History] Magnesium 400 mg PO BID 03/15/16 [History] Budesonide/Formoterol 80/4.5 [Symbicort 80/4.5] 2 puff IH BIDR #2 inhaler 03/17 [Rx] Cyanocobalamin (Vitamin B-12) [Vitamin B12] 1,000 mcg PO BID 04/03/17 [History] Loratadine [Allergy Relief] 10 mg PO DAILY 04/03/17 [History] Omeprazole 20 mg PO DAILY 04/03/17 [History] Tiotropium [Spiriva] 18 mcg IH DAILY 04/03/17 [History] Albuterol Sulfate [Ventolin Hfa] 1 puff IH Q4H PRN 04/04/17 [History] Aripiprazole [Abilify] 7.5 mg PO QAM 04/04/17 [History] Lactulose 10 gm PO DAILY PRN 04/04/17 [History] Multivitamin-Min/Iron/FA/Vit K [Multi-Day Plus Minerals Tablet] 1 each PO DAILY 04/04/17 [History] Aspirin 81 mg PO DAILY tab.chew 09/05/17 [Rx] Atorvastatin [Lipitor] 40 mg PO HS tablet 09/05/17 [Rx] Bisacodyl [Dulcolax] 10 mg PO DAILY PRN tablet 09/05/17 [Rx] Insulin DETEMIR [Levemir] 5 unit SQ BID [id number] 09/05/17 [Rx] Ipratropium/Albuterol Neb [Duoneb] 3 ml IH [id number] inhsol 09/05/17 [Rx] Metoprolol [Lopressor] 75 mg PO BID tablet 09/05/17 [Rx] Nicotine Patch [Nicoderm] 14 mg TD DAILY patch.td24 09/05/17 [Rx] OLANZapine [Zyprexa Zydis] 10 mg PO HS tab.rapdis 09/05/17 [Rx] OxyCODONE/APAP 5/325 [Percocet 5/325 MG] 1 each PO Q6H PRN #10 tablet 09/05/17 [ Rx] levETIRAcetam [Keppra] 1,000 mg PO Q12H tablet 09/05/17 [Rx] Allergies/Adverse Reactions: 3 Allergy/AdvReac Type Severity Reaction Status Date / Time No Known Allergies Allergy Verified 03/15/16 17:09 Procedures/tests Complete & Pending: Procedures Performed prior 72 hours Category Date Time Status CT head/brain wo con [CT] Stat Cat Scan 09/02/17 11:20 Completed Date of admission: 08/21/17 21:41 [facility] Consults: 08/21/17 22:59 Consult to Cardiology [CONS] Routine Comment: Consulting Provider: Cardiology Yany Reason for Consult: Elevated troponin, ST depression Call Completed: Yes 08/21/17 23:05 Consult to Pulmonology [CONS] Routine Consulting Provider: [facility] [place] Reason for Consult: Vent management, AECOPD Call Completed: No 08/21/17 23:06 Consult to Nephrology [CONS] Routine Consulting Provider: [facility] Reason for Consult: CELINA, Cr 13.13, K 6.1 Call Completed: No 08/22/17 10:45 Consult to Nutrition [CONS] Routine Comment: Consulting Provider: NUTRITION Reason for Dietary Consult: TF Start and Manage 08/27/17 08:21 Consult to Physical Therapy [CONS] Routine Comment: Evaluate, develop and implement POC Reason for Consult: increase physical activity/ambulation 08/28/17 09:43 Consult to Cardiology [CONS] Routine Comment: Consulting Provider: Cardiology Yany Reason for Consult: anteriolateral NSTEMI, with possible new inferior NSTEMI Call Completed: Yes 08/29/17 14:20 Consult to Neurology [CONS] Routine Consulting Provider: [facility] Reason for Consult: altered mental status Call Completed: No 08/29/17 15:02 Consult to Interpret Exam [CONS] Routine Consulting Provider: Andre Dove Consult to Interpret Exam: Interpret EEG 08/30/17 11:02 Consult to Oncology Hematology [CONS] Routine Consulting Provider: Randy Chirinos Reason for Consult: 61M non-compliant CPAP, CHF, tobacco use, diabetes type II, hepatitis C, presented altered and in septic shock. NSTEMI with high troponin 3.93 requiring possible LHC but undetermined new onset thrombocytopenia. Requesting Hemonc to determine etiology of downtrending platelets before catheterization Call Completed: No 08/30/17 11:11 Consult to Occupational Therapy [CONS] Stat Comment: Evaluate, develop and implement POC Reason for Consult: Patient mental status improving. AOx3. 08/30/17 17:09 Consult to Pulmonology [CONS] Routine Consulting Provider: [facility] Reason for Consult: resp failure, PNA Call Completed: Yes 09/01/17 08:26 Consult to Paediatric Surgeon [CONS] Routine Reason for SW Consult: PT/OT recommending inpatient swing bed; patient has been here 11 days, step-down from ICU Discharging clinician: Chalino Moreno Anticipated date of discharge: 09/05/17 - Patient Status Disposition: Transfer SNF Condition: Fair Functional capacity at discharge: uses cane/walker Overall status at discharge: patient is progressing back to baseline - Discharge Instructions [facility] With: [facility] Care Provider[facility] - 09/12/17 1:15 pm - Diet and Activity Activity: as per physical therapy, increase activity as tolerated Diet: advance to your usual diet, diabetic diet Hospital course: Mr. Thompson is a 61 year old male brought to ED due to mental status change. He had been intubated prior to arrival in ED. In the ED he was found to be hypotensive and in septic shock. He also was noted to have an NSTEMI. He was placed on heparin drip and admitted to ICU. He apparently had not been compliant with his CPAP at home. Mr Thompson was admitted to ICU in acute hypercapnic resp failure and septic show with acute renal failure. He was placed on pressors and IV abx and seen by nephrology service for CELINA. He was also on steroids for COPD. On 08/23 pressors were stopped and he was extubated. Unfortunately he needed to be reintubated that day. His electrolytes were treated and he was maintained on his home meds for seizure disorder and Hep C. He ultimately was able to be successfully extubated and renal function improved. He was confused requiring multiple medications. He was seen by neurology and EEG was negative. His platelets decreased and he was evaluated by hematology and gradually they improved. He underwent cardiac catheterization on 08/31 and subsequently was transferred to step down. His mentation was returning to normal. On 09/02 arrangements were being made to transfer to [facility] re[facility] when he had a seizure like episode. His Keppra was increased. He was monitored over the weekend and had no further episodes. His Keppra dose has been increased. Today he is alert and oriented. He is afebrile with stable vitals. He is ready for discharge to rehab. - Time Spent with Patient Total time spent providing and/or coordinating discharge services: 42min - Constitutional Vitals: Temp Pulse Resp BP Pulse Ox 98.1 F 70 16 157/69 98 09/05/17 07:08 09/05/17 07:08 09/05/17 07:08 09/05/17 07:08 09/05/17 07:08 General appearance: Present: A&O X 3, obese, answers questions appropriately - Head Head exam: Present: normocephalic - Eye Eye exam: Present: conjuntiva pink - ENT ENT exam: Present: mucous membranes moist - Respiratory Respiratory exam: Present: decreased breath sounds, CTAB. Absent: rhonchi, wheezes - Cardiovascular Cardiovascular exam: Present: RRR. Absent: tachycardia - GI/Abdominal GI/Abdominal exam: Present: soft. Absent: tenderness - Extremities Exam Extremities exam: Present: warm. Absent: tenderness - Neurological Exam Neurological exam: Present: alert, oriented X3 - Skin Skin exam: Present: warm. Absent: rash - VTE Reasons for not Prescribing Prophylaxis: Not indicated-Anticoagulated or INR therapeutic
--- NOTE | 2017-09-05 11:14 | Physician Discharge Referral ---
Extended[facility] Referral Info Transfer To: [facility] Provider in Charge after Transfer: PCP Institutional Level of Care: Skilled - Diagnosis (1) Acute hypercapnic respiratory failure Priority: Primary Status: Resolved (2) Seizure disorder Priority: Secondary Status: Acute (3) NSTEMI (non-ST elevated myocardial infarction) Priority: Primary Status: Acute (4) Pneumonia Priority: Primary Status: Acute (5) Hypertension Priority: Secondary Status: Chronic (6) Congestive heart failure Priority: Secondary Status: Chronic (7) 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, type II Priority: Secondary Status: Chronic (8) Tobacco abuse Priority: Secondary Status: Chronic (9) Hyperkalemia Priority: Secondary Status: Resolved (10) Thrombocytopenia Priority: Secondary Status: Chronic (11) Hepatitis C Priority: Secondary Status: Chronic Expected Duration of Placement: Less than 30 days Prognosis: Fair Aware of Diagnosis: Patient, Family Aware of Prognosis: Patient, Family - Transfer Medications Prescriptions: OxyCODONE/APAP 5/325 [Percocet 5/325 MG] 1 each PO Q6H PRN #10 tablet PRN Reason: Pain Home Medications: Aspirin 81 mg PO DAILY 03/15/16 [History] Cholecalciferol (Vitamin D3) [Vitamin D3] 1,000 unit PO BID 03/15/16 [History] Magnesium 400 mg PO BID 03/15/16 [History] Budesonide/Formoterol 80/4.5 [Symbicort 80/4.5] 2 puff IH BIDR #2 inhaler 03/17 [Rx] Cyanocobalamin (Vitamin B-12) [Vitamin B12] 1,000 mcg PO BID 04/03/17 [History] Loratadine [Allergy Relief] 10 mg PO DAILY 04/03/17 [History] Omeprazole 20 mg PO DAILY 04/03/17 [History] Tiotropium [Spiriva] 18 mcg IH DAILY 04/03/17 [History] Albuterol Sulfate [Ventolin Hfa] 1 puff IH Q4H PRN 04/04/17 [History] Aripiprazole [Abilify] 7.5 mg PO QAM 04/04/17 [History] Lactulose 10 gm PO DAILY PRN 04/04/17 [History] Multivitamin-Min/Iron/FA/Vit K [Multi-Day Plus Minerals Tablet] 1 each PO DAILY 04/04/17 [History] Aspirin 81 mg PO DAILY tab.chew 09/05/17 [Rx] Atorvastatin [Lipitor] 40 mg PO HS tablet 09/05/17 [Rx] Bisacodyl [Dulcolax] 10 mg PO DAILY PRN tablet 09/05/17 [Rx] Insulin DETEMIR [Levemir] 5 unit SQ BID [id number] 09/05/17 [Rx] Ipratropium/Albuterol Neb [Duoneb] 3 ml IH [id number] inhsol 09/05/17 [Rx] Metoprolol [Lopressor] 75 mg PO BID tablet 09/05/17 [Rx] Nicotine Patch [Nicoderm] 14 mg TD DAILY patch.td24 09/05/17 [Rx] OLANZapine [Zyprexa Zydis] 10 mg PO HS tab.rapdis 09/05/17 [Rx] OxyCODONE/APAP 5/325 [Percocet 5/325 MG] 1 each PO Q6H PRN #10 tablet 09/05/17 [ Rx] levETIRAcetam [Keppra] 1,000 mg PO Q12H tablet 09/05/17 [Rx] Allergies/Adverse Reactions: 3 Allergy/AdvReac Type Severity Reaction Status Date / Time No Known Allergies Allergy Verified 03/15/16 17:09 - Respiratory Orders Oxygen / L per min (Keep saturation greater than 88%) Smoking Cessation: Smoking cessation has been advised. For more information, call the [place] Tobacco Quit Line at 9-172-FCMN-NOW. - Lab Orders Lab Orders: 2 Step Mantoux Test per State regulation, CBC, [place] 17 - Ancillary Orders May use pressure relief devices daily prn, May go on CHRISTINE w/family/respon libertarian w /meds at nurse discretion PRN, May consult with Dentist, Counter Tacker, Automotive Brake Specialist PRN - Advance Directives Code Status: Full Code - History and Physical History/Physical reviewed & approved w/add comments: Pt more alert and at baseline - Mobility Orders Ambulate - Rehabiliation Orders Rehab Potential: Good Rehab Orders: Evaluation for Physical Therapy, Evaluation for Occupational Therapy - Treatments Skin tear care topically daily PRN per policy, May check for fecal impaction rectally daily PRN, Fleet enema rectally every other day PRN cleansing purposes - Diet Orders No Concentrated Sweets CERTIFICATION: I certify that the transfer of the above named patient to an Extended Care Facility is necessary for the continuing treatment of the diagnosis listed. The above information is true and accurate reflection of patient's current condition. Confidential - Redisclosure prohibited without a patient's written consent.
[2017-09-05 11:22] VITALS: BP 122/72
[2017-09-05] MEDS ORDERED: FLUARIX QUAD 2017-18 36MOS UP/PF 0.5 ML SYRINGE IM ONE (12:30)
== END 2017-09-05 14:14 | DRG 871 ==
LOC: ICNU 21:41 → SUATTDRO 21:41 → 2NENU 08-31 17:34
PROVIDERS: ADMIT Pediatrics; ATTEND Internal Medicine

== ENCOUNTER 2017-12-13 11:08 | Inpatient (IN) ==
--- NOTE | 2017-12-13 11:50 | Emergency Department Note ---
Disposition Clinical Impression: Respiratory acidosis, Confusion Right lower lobe pneumonia Qualifiers: Pneumonia type: due to unspecified organism Qualified Code(s): J18.1 - Lobar pneumonia, unspecified organism Disposition: Admitted As Inpatient Condition: Fair [facility] Care Provider[facility] - Forms: ED Satisfaction Letter Time of Disposition: 13:41 SOB HPI - General Chief Complaint: ED Shortness of Breath/Dyspnea Stated Complaint: LIDYA Time Seen by Provider: 12/13/17 11:18 Source: patient, EMS Mode of arrival: EMS Limitations: altered mental status Nursing Notes Reviewed: Yes Vital Signs Reviewed: Yes - History of Present Illness 62-year-old who was seen at the [facility] and was diagnosed with pneumonia was being seen in follow-up at the [facility] as he was discharged from [facility] several days ago. Patient had some increasing confusion and some increasing shortness of breath. On arrival he does answer some questions appropriately. His vitals are stable he had lab work done at the outside facility which showed a white count of 6.7 and H&H of 10 4 and 36.5 with a platelet count of 143,000, AST of 22, a LT of 26 total bilirubin is 0.3-potassium is 3.8 chloride of 86 glucose of 374 BUN of 7 creatinine 0.82 ammonia was 55 Pt Subjective Complaint: shortness of breath, cough Onset (ago): day(s) Context: recent illness Severity: moderate Consistency/Duration: constant Improves with: nothing Worsens with: exertion Known history of: COPD Associated symptoms: Reports: cough, other (Confusion) Treatment prior to arrival: oxygen Cough Frequency: Intermittent - Related Data Home Medications Medication Instructions Recorded Confirmed Cholecalciferol (Vitamin D3) 1,000 unit PO BID 03/15/16 12/13/17 [Vitamin D3] Magnesium 400 mg PO BID 03/15/16 12/13/17 Cyanocobalamin (Vitamin B-12) 1,000 mcg PO BID 04/03/17 12/13/17 [Vitamin B12] Loratadine [Allergy Relief] 10 mg PO DAILY 04/03/17 12/13/17 Omeprazole 20 mg PO DAILY 04/03/17 12/13/17 Tiotropium [Spiriva] 18 mcg IH DAILY 04/03/17 12/13/17 Albuterol Sulfate [Ventolin Hfa] 1 puff IH Q4H PRN 04/04/17 12/13/17 Lactulose 10 gm PO DAILY PRN 04/04/17 12/13/17 Multivitamin-Min/Iron/FA/Vit K 1 each PO DAILY 04/04/17 12/13/17 [Multi-Day Plus Minerals Tablet] levETIRAcetam [Keppra] 250 mg PO Q12H 10/26/17 12/13/17 Lisinopril [Zestril] 10 mg PO DAILY 12/13/17 12/13/17 Previous Rx's Medication Instructions Recorded Budesonide/Formoterol 80/4.5 2 puff IH BIDR #2 inhaler 03/17/16 [Symbicort 80/4.5] Aspirin 81 mg PO DAILY tab.chew 09/05/17 Atorvastatin [Lipitor] 40 mg PO HS tablet 09/05/17 Bisacodyl [Dulcolax] 10 mg PO DAILY PRN tablet 09/05/17 Insulin DETEMIR [Levemir] 5 unit SQ BID [id number] 09/05/17 Ipratropium/Albuterol Neb [Duoneb] 3 ml IH [id number] inhsol 09/05/17 Metoprolol [Lopressor] 75 mg PO BID tablet 09/05/17 OxyCODONE/APAP 5/325 [Percocet 1 each PO Q6H PRN #10 tablet 09/05/17 5/325 MG] Allergies Allergy/AdvReac Type Severity Reaction Status Date / Time No Known Allergies Allergy Verified 03/15/16 17:09 All systems ED: reviewed and negative except as stated. Constitutional: Denies: fever, chills, weakness, weight change Eyes: Denies: eye pain, eye discharge, vision change ENT ED: Denies: ear pain, throat pain, dental pain, hearing loss, epistaxis, congestion, dysphagia Cardiovascular: Denies: chest pain, palpitations, dyspnea on exertion, edema, syncope Respiratory: Reports: dyspnea. Denies: cough, wheezes, hemoptysis, stridor Gastrointestinal: Denies: abdominal pain, nausea, vomiting, diarrhea, constipation, hematemesis, melena, hematochezia Genitourinary: Denies: urgency, dysuria, frequency, hematuria Musculoskeletal: Denies: back pain, neck pain, arthralgia, myalgia Integumentary: Denies: rash, abrasion, lesions Neurological: Denies: headache, weakness, numbness, paresthesias, confusion, abnormal gait, vertigo Psychiatric: Denies: anxiety, depression, suicidal thoughts, homicidal thoughts , auditory hallucinations, visual hallucinations Endocrine: Denies: fatigue Hematological/Lymphatic: Denies: easy bleeding, easy bruising Allergic/Immunologic: Denies: facial swelling, urticaria Past Medical History - Past Medical History Medical history: Reports: cirrhosis, CHF, COPD, coronary artery disease, diabetes, hepatitis, hyperlipidemia, hypertension, liver disease, myocardial infarction, other Surgical history: Reports: cholecystectomy, orthopedic, other (ankle), other Psychiatric history: Reports: anxiety, depression - Social History Smoking Status: Former smoker Smokeless Tobacco Status: No Alcohol use: Reports: none Drug use: Reports: none Physical Exam - General Limitations: altered mental status General appearance: alert - Head Head exam: atraumatic, normocephalic, normal inspection - Eye Eye exam: Present: normal appearance, PERRL, EOMI - ENT ENT exam: normal exam, normal oropharynx, mucous membranes moist - Neck Neck exam: Present: normal inspection, full ROM, trachea midline - Chest Chest inspection: Present: normal inspection - Respiratory Respiratory exam: Present: other (Diminished breath sounds on the right) - Cardiovascular Cardiovascular exam: Present: regular rate, normal rhythm, normal heart sounds - Abdominal Exam Abdominal exam: Present: soft Course - Reevaluation(s) Reevaluation #1: 62-year-old with a history of cirrhosis who comes in with confused and some dyspnea. Patient is stable on arrival. Chest x-ray shows a possible right lower lobe pneumonia. Blood gas does show respiratory acidosis with CO2 retention. Patient was placed on BiPAP. Patient will be admitted was given antibiotics. Time: 14:29 - Consultations Consultation #1: Discussed with Venkatesh Sanchez, admit. Time: 14:30 Consultation #2: Discussed with Dr. Reis Time: 14:54 Vital Signs Temperature 98.4 F 12/13/17 11:09 Pulse Rate 73 12/13/17 11:09 Respiratory Rate 26 12/13/17 11:09 Blood Pressure 155/76 12/13/17 11:09 O2 Sat by Pulse Oximetry 75 12/13/17 11:09 Temperature 98.4 F 12/13/17 11:09 Pulse Rate 64 12/13/17 14:13 Respiratory Rate 16 12/13/17 14:13 Blood Pressure 131/71 12/13/17 14:13 O2 Sat by Pulse Oximetry 98 12/13/17 14:13 Oxygen Delivery Oxygen Delivery Bipap Shortness of Breath/Dyspnea - Lab Data Lab results reviewed: Yes I reviewed the patient's lab results. Lab Results 12/13/17 12/13/17 Range/Units 12:25 12:46 Sample Site R Brach ABG pH 7.27 L (7.32-7.45) pH Units ABG pCO2 122 H* (35-45) mmHg ABG pO2 123 H (85-104) mmHg ABG HCO3 56 H (21-27) mEq/L ABG Total CO2 60 H (20-26) mEq/L ABG O2 Saturation 98 (95-98) % ABG Base Excess 23 H (-2 to 3) mEq/L Jerad Test Positive O2 Delivery Device Cannula Inspired O2 6.0 (1-15=lpm [id number]=%) Lactic Acid 0.8 (0.5-2.2) mmol/L - Radiology Data Radiology results reviewed: Yes I reviewed the patient's radiology results. Chest X-Ray 12/13/17 11:46 IMPRESSION: 1. Hypoinflated lungs with left basilar atelectasis. 2. Moderate size right pleural effusion. Superimposed atelectasis/infiltrate is again seen. D/ / Jose Piña MD / Jose Piña MD Interpreting Provider: Jose Piña MD - EKG Data EKG attestation: Yes I reviewed and interpreted this EKG. EKG shows normal: Reports: sinus rhythm Rate: Reports: normal Rhythm: Reports: NSR Interpretation: Reports: no acute changes
[2017-12-13] MEDS ORDERED: Piperacillin/Tazobactam 3.375 GM in Water for inj. (sterile) 20 ML IVP ONE (12:01)
[2017-12-13] MEDS ORDERED: Vancomycin 1,000 MG in D5% in Water 250 ML IVPB ONE (12:01)
[2017-12-13 12:50] LABS: ABG Base Excess 23 mEq/L (-2 to 3); ABG HCO3 56 mEq/L (21-27); ABG Oxygen Saturation 98 % (95-98); ABG PCO2 122 mmHg (35-45); ABG PH 7.27 pH Units (7.32-7.45); ABG PO2 123 mmHg (85-104); ABG TCO2 60 mEq/L (20-26)
--- NOTE | 2017-12-13 15:33 | Pulmonology History & Physical ---
<Leonides Guillen - Last Filed: 12/13/17 16:45> Date of Encounter: 12/13/17 Time of Encounter: 15:18 Assessment and Plan (1) Acute and chronic respiratory failure with hypercapnia Current visit: Yes Status: Acute Patient has acute on chronic respiratory failure with hypercapnia secondary to pneumonia and acute diastolic congestive heart failure Chest x-ray demonstrates moderate right-sided pleural effusion with superimposed infiltrate Initial ABG demostrates pH 7.27, PCO2 122, PO2 123 and HCO3 46 with nasal cannula at 6 L Repeat ABG with BiPAP at 20/6 with 30% shows pH 7.39, PCO2 90, PO2 53 and HCO3 35 Patient was recently discharged from [facility] a few days ago for similar complaints states that he has a poor compliance with BiPAP at home He additionally uses home oxygen 4 L at all times We will continue with BiPAP support, IV antibiotics and bronchodilators Patient remains high risk and will monitor closely in ICU overnight (2) Pneumonia involving right lung Current visit: Yes Status: Acute Chest x-ray shows moderate right-sided pleural effusion superimposed infiltrate Decreased breath sounds on the right with crackles No leukocytosis Afebrile Blood and sputum cultures sent Legionella and strep antigen ordered Viral panel ordered Starting IV vancomycin and cefepime; de-escalate pending cultures Bronchodilators and BiPAP; titrate down to high flow nasal cannula Qualifiers: Pneumonia type: due to unspecified organism Lung location: middle lobe of lung Qualified Code(s): J18.1 - Lobar pneumonia, unspecified organism (3) Acute metabolic encephalopathy Current visit: Yes Status: Acute Likely due to acidemia versus elevated ammonia levels Patient was able to open eyes and was arousable to stimulus See above (4) Acute diastolic (congestive) heart failure Current visit: Yes Status: Acute Chest x-ray shows moderate right-sided pleural effusion superimposed infiltrate Decreased breath sounds on the right with crackles 1+ pitting edema Unable to answer if he is experiencing any PND or orthopnea Echocardiogram on 04/04/17 the ventricular EF 60%, mild SI dysfunction of LV, no valvular dysfunction or wall motion abdomen allergies LHC on 08/31/17 and was otherwise unremarkable Plan: BiPAP to increase stroke volume 1 mg Bumex daily Strict I&Os 1500 fluid restriction Aspirin Statin Restart beta donny tomorrow pending toleration of Bumex and heart rate (5) Pleural effusion, right Current visit: Yes Status: Acute Chest x-ray arrival demonstrates moderately right-sided pleural effusion with likely superimposed infiltrate See above (6) COPD (chronic obstructive pulmonary disease) Current visit: No Status: Acute No wheezing heard on examination today Continue Bronchodilators and BiPAP for now See above Qualifiers: COPD type: unspecified COPD Qualified Code(s): J44.9 - Chronic obstructive pulmonary disease, unspecified (7) 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, type II Current visit: No Status: Chronic Diabetic diet Accu-Cheks 3 times a day with meals Low-dose sliding scale for coverage for now will adjust accordingly Qualifiers: 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 complication status: with circulatory complication 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 complication detail: with other circulatory complications 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 half-way insulin use: with half-way use Qualified Code(s) : E11.59 - Type 2 diabetes mellitus with other circulatory complications; Z79.4 - detention (current) use of insulin; Z79.4 - manager global (current) use of insulin ; Z79.4 - manager global (current) use of insulin; Z79.4 - detention (current) use of insulin (8) Tobacco abuse Current visit: No Status: Chronic (9) Hepatitis C Current visit: No Status: Chronic History of cirrhosis and elevated ammonia on admission Started lactulose 20 mg twice a day Qualifiers: Viral hepatitis chronicity: chronic Hepatic coma status: without hepatic coma Qualified Code(s): B18.2 - Chronic viral hepatitis C (10) Seizure disorder Current visit: No Status: Acute Continue home dose of Keppra (11) Obesity (BMI 30-39.9) Current visit: No Status: Chronic (12) DVT prophylaxis Current visit: No Status: Acute Heparin 5000 units every 12hrs History of Present Illness HPI: Mr. Thompson is a very pleasant 62 year old male with a past history of hepatitis C, seizure disorder, obesity, tobacco abuse, type 2 diabetes, oxygen dependent COPD and diastolic congestive heart failure who presents to the [facility] emergency department with chief complaint of shortness of breath. Patient was seen at the [facility] today and was sent over here for further evaluation. Initial workup at the [facility] demonstrates white count of 6.7, H&H of 10.4/36.5, platelet count of 143K, AST 22, ALT 26, total bilirubin is 0.3, potassium is 3.8, chloride 86, glucose 374, BUN 7, creatinine 0.2 and ammonia was 55. Initial workup on arrival shows chest x-ray with moderate right-sided pleural effusion with superimposed infiltrates. Initial ABG demonstrates pH 7.27, PCO2 122, PO2 123 and HCO3 46 with nasal cannula at 6 L. Patient was placed on BiPAP support. Patient was noted to be excessively somnolent. at bedside states that he has poor compliance with his BiPAP at home. He is oxygen dependent with 4 L at all times with BiPAP at night and as needed. Patient was recently discharged from [facility] a few days ago for similar complaints. goes on to state that he has been hospitalized 3 times in the last year for COPD. Of note, patient has been intubated once for hypoxia back in August 2017. does not know what he was diagnosed with for his recent admission at [place]. Blood cultures were drawn and patient received 1 dose of vancomycin and Zosyn in the emergency room. Due to his worsening hypercapnia and hypoxia, ovarian/pelvic was consulted for admission to the intensive care unit. On evaluation in the emergency room, patient is arousable to stimulus and opens his eyes. Repeat ABG after BiPAP was adjusted to 20/6 with 30% shows pH 7.39, PCO2 90, PO2 53 and HCO3 35. Vital signs are stable and examination shows decreased breath sounds on the right with some crackles. Given his decreased mental status, hypercapnia, need for BiPAP and history of recent intubation we will admit him to the intensive care unit for close monitoring for possible transfer out of the unit after 24 hours pending improvement. Past Med Surg Social Fam HX - Past Medical History Medical history: cirrhosis, CHF, COPD, coronary artery disease, diabetes, hepatitis, hyperlipidemia, hypertension, liver disease, myocardial infarction, other Psychiatric history: anxiety, depression - Past Surgical History Surgical History: cholecystectomy, orthopedic, other (ankle), other - Social History Smoking Status: Former smoker Smokeless Tobacco Status: No Alcohol use: none Drug use: none - Family History Mother Living Status: Still Living Hx Family Endocrine Disorder: Yes (DM) Father Living Status: Still Living Hx Family Cardiac Disorders: Yes ([place], CABG) Hx Family Endocrine Disorder: Yes (DM) Medications and Allergies Cholecalciferol (Vitamin D3) [Vitamin D3] 1,000 unit PO BID 03/15/16 [History] Magnesium 400 mg PO BID 03/15/16 [History] Budesonide/Formoterol 80/4.5 [Symbicort 80/4.5] 2 puff IH BIDR #2 inhaler 03/17 [Rx] Cyanocobalamin (Vitamin B-12) [Vitamin B12] 1,000 mcg PO BID 04/03/17 [History] Loratadine [Allergy Relief] 10 mg PO DAILY 04/03/17 [History] Omeprazole 20 mg PO DAILY 04/03/17 [History] Tiotropium [Spiriva] 18 mcg IH DAILY 04/03/17 [History] Albuterol Sulfate [Ventolin Hfa] 1 puff IH Q4H PRN 04/04/17 [History] Lactulose 10 gm PO DAILY PRN 04/04/17 [History] Multivitamin-Min/Iron/FA/Vit K [Multi-Day Plus Minerals Tablet] 1 each PO DAILY 04/04/17 [History] Aspirin 81 mg PO DAILY tab.chew 09/05/17 [Rx] Atorvastatin [Lipitor] 40 mg PO HS tablet 09/05/17 [Rx] Bisacodyl [Dulcolax] 10 mg PO DAILY PRN tablet 09/05/17 [Rx] Insulin DETEMIR [Levemir] 5 unit SQ BID [id number] 09/05/17 [Rx] Ipratropium/Albuterol Neb [Duoneb] 3 ml IH [id number] inhsol 09/05/17 [Rx] Metoprolol [Lopressor] 75 mg PO BID tablet 09/05/17 [Rx] OxyCODONE/APAP 5/325 [Percocet 5/325 MG] 1 each PO Q6H PRN #10 tablet 09/05/17 [ Rx] levETIRAcetam [Keppra] 250 mg PO Q12H 10/26/17 [History] Lisinopril [Zestril] 10 mg PO DAILY 12/13/17 [History] 3 Allergy/AdvReac Type Severity Reaction Status Date / Time No Known Allergies Allergy Verified 03/15/16 17:09 ROS unobtainable: due to mental status All Systems: A 10-system review of systems was performed and is negative for pertinent findings except as documented above in the HPI. Physical Examination General appearance: lethargic (Responds and opens eyes to stimulus, nonverbal) Eyes: nonicteric ENT: oropharynx moist Neck: supple Auscultation: bilateral: diminished breath sounds (Right greater than left, crackles on right) Cardiovascular: regular rate and rhythm Gastrointestinal: normoactive bowel sounds, non-distended Integumentary: normal Extremities: no cyanosis, no clubbing, edema Musculoskeletal: no deformities unable to assess due to mental status Results - Laboratory Findings CBC and BMP: 12/13/17 12:20 ABG ABG pH 7.27 pH Units (7.32-7.45) L 12/13/17 12:46 ABG pCO2 122 mmHg (35-45) H* 12/13/17 12:46 ABG pO2 123 mmHg (85-104) H 12/13/17 12:46 ABG O2 Saturation 98 % (95-98) 12/13/17 12:46 Abnormal lab findings: Abnormal lab results ABG pH 7.27 pH Units (7.32-7.45) L 12/13/17 12:46 ABG pCO2 122 mmHg (35-45) H* 12/13/17 12:46 ABG pO2 123 mmHg (85-104) H 12/13/17 12:46 ABG HCO3 56 mEq/L (21-27) H 12/13/17 12:46 ABG Total CO2 60 mEq/L (20-26) H 12/13/17 12:46 ABG Base Excess 23 mEq/L (-2 to 3) H 12/13/17 12:46 <Willa Martin S - Last Filed: 12/13/17 22:56> Date of Encounter: 12/13/17 History of Present Illness HPI: Mr. Thompson is a 62 year old male All Systems: A 10-system review of systems was performed and is negative for pertinent findings except as documented above in the HPI. Physical Examination Vital Signs: Vital Signs, Last 4 Hours Temp Pulse Resp BP Pulse Ox 12/13/17 21:20 17 98 12/13/17 20:00 80 18 144/81 93 12/13/17 19:35 98.1 F 77 22 155/94 93 12/13/17 18:51 70 15 151/83 93 12/13/17 18:12 66 19 155/76 93 Results - Laboratory Findings CBC and BMP: 12/13/17 12:20 12/13/17 12:20 ABG ABG pH 7.39 pH Units (7.32-7.45) D 12/13/17 15:48 ABG pCO2 90 mmHg (35-45) H* D 12/13/17 15:48 ABG pO2 53 mmHg (85-104) L D 12/13/17 15:48 ABG O2 Saturation 83 % (95-98) L 12/13/17 15:48 Abnormal lab findings: Abnormal lab results RBC 3.76 M/mcL (4.19-5.50) L 12/13/17 12:20 Hgb 10.6 g/dL (12.9-16.9) L 12/13/17 12:20 Hct 36.3 % (37.5-50.1) L 12/13/17 12:20 MCHC 29.2 g/dL (31.6-35.5) L 12/13/17 12:20 RDW 14.6 % (11.5-14.5) H 12/13/17 12:20 ABG pCO2 90 mmHg (35-45) H* D 12/13/17 15:48 ABG pO2 53 mmHg (85-104) L D 12/13/17 15:48 ABG HCO3 55 mEq/L (21-27) H 12/13/17 15:48 ABG Total CO2 57 mEq/L (20-26) H 12/13/17 15:48 ABG O2 Saturation 83 % (95-98) L 12/13/17 15:48 ABG Base Excess 25 mEq/L (-2 to 3) H 12/13/17 15:48 Chloride 87 mEq/L (98-107) L 12/13/17 12:20 Carbon Dioxide > 45 mEq/L (23-29) H* 12/13/17 12:20 Glucose 288 mg/dL (70-105) H 12/13/17 12:20 POC Glucose 263 (58-89) H 12/13/17 19:42 Phosphorus 2.2 mg/dL (2.7-4.5) L 12/13/17 12:20 B-Natriuretic Peptide 279 pg/mL (Less than 100) H 12/13/17 12:20 Serum Total Protein 6.2 g/dL (6.4-8.9) L 12/13/17 12:20 - Attending Attestation I saw and evaluated this patient and my medical decision-making was reviewed with the Resident Physician. I agree with the documented findings, disposition and treatment plan as described except to the extent set forth below. We independently had [id number] contact with the patient I spent of 35 minutes of Critical Care time with this patient. It involved decision making of high complexity to assess, manipulate, and support vital organ system failure and/or to prevent further life threatening deterioration of the patient's condition. The time involved in the performance of separately reportable procedures was not counted toward critical care time. Patient seen and examined at bedside Labs, radiology, chart personally reviewed. REGISTRATION SPECIALIST:Patient is arousable to deep sternal rub and some verbal stimuli sometimes wakes up and sees you but doesnt follow commands mostly likely due to toxic/ metabolic encephalopathy secondary to hypercarbia and pneumonia Pulm:Patient is presenting with Acute on chronic hypoxic and hypercarbic respiratory failure secondary due to fluid overlaod acute on chronic diastolic failure with ? Liver failure the right sided pleural effusion can be due to hepatic hydrothorax will do ultrasound surveillance of the abdomen and chest Cards:Hemodynamically stable acute on chronic diastolic heart failure will start on diuresis patient is hemodynamically stable FEN-GI:NPO since he is on BIPAP Renal:Labs and UOP reviewed ID:Patent might have superimposed pneumonia will cover with broad spectrum antibiotics will do blood culture and urine cultures Heme/Onc:Labs reviewed no leukocytosis Endo: Glucose Monitored Integ/MSK: Skin Care per routine ICU Nursing Protocol to prevent ulcers. Lines: All lines examined without evidence of infection : Dispo: Critically because of Acute on chronic respiratory failure with high chance of worsening respiratory failure needing mechanical ventilation CODE:Full Code
[2017-12-13] MEDS ORDERED: Naloxone 0.4 MG/ML INJ IVP PRN (15:41)
[2017-12-13] MEDS ORDERED: Albuterol 2.5 MG/3 ML NEBULIZER IH PRN (15:43)
[2017-12-13] MEDS ORDERED: *HR* OxyCODONE/APAP 5/325 TABLET PO PRN (15:44)
[2017-12-13 15:57] LABS: ABG Base Excess 25 mEq/L (-2 to 3); ABG HCO3 55 mEq/L (21-27); ABG Oxygen Saturation 83 % (95-98); ABG PCO2 90 mmHg (35-45); ABG PH 7.39 pH Units (7.32-7.45); ABG PO2 53 mmHg (85-104); ABG TCO2 57 mEq/L (20-26)
[2017-12-13] MEDS ORDERED: Vancomycin 1,500 MG in D5% in Water 250 ML IVPB SCH (16:00)
[2017-12-13] MEDS: Ipratropium/Albuterol Neb 3 ML IH SCH ×2 (16:00→21:16)
[2017-12-13] MEDS ORDERED: *HR* Dextrose 50 % in Water (Syg) 50 ML SYRINGE IVP PRN (16:05)
[2017-12-13] MEDS ORDERED: Dextrose Gel 15 GM/37.5 ML TUBE PO PRN ×2 (16:05)
[2017-12-13] MEDS ORDERED: D5% in Water 1,000 ML IVC PRN (16:05)
[2017-12-13 16:27] LABS: Basophils % 0.5 %; Eosinophils # 0.2 K/mcL (0.0-0.6); Hematocrit 36.3 % (37.5-50.1); Hemoglobin 10.6 g/dL (12.9-16.9); Immature Granulocytes % 0.3 % (0-4); Lymphocytes # 1.3 K/mcL (0.6-4.6); Lymphocytes % 21.4 %; Mean Corpuscular HGB Conc 29.2 g/dL (31.6-35.5); Mean Corpuscular Hemoglobin 28.2 pg (28.0-33.3); Mean Corpuscular Volume 96.5 fL (83.0-100.0); Mean Platelet Volume 11.1 fL (9.4-12.4); Monocytes # 0.6 K/mcL (0.0-1.3); Monocytes % 9.4 %; Platelet Count 148 K/mcL (140-400); Red Blood Count 3.76 M/mcL (4.19-5.50); Red Cell Distribution Width 14.6 % (11.5-14.5); Segmented Neutrophils % 65.4 %
[2017-12-13] MEDS ORDERED: Insulin LISPRO 300 UNITS/3 ML VIAL SQ SCH ×3 (16:30→21:00)
[2017-12-13 18:43] LABS: Alanine Aminotransferase 19 Units/L (7-52); Albumin 3.5 g/dL (3.5-5.7); Albumin/Globulin Ratio 1.3 (1.1-2.2); Alkaline Phosphatase 73 Units/L (34-104); Aspartate Amino Transferase 24 Units/L (13-39); BUN/Creatinine Ratio 11 (6-26); Bilirubin,Total 0.4 mg/dL (0.3-1.0); Blood Urea Nitrogen 8 mg/dL (8-23); Calcium 8.8 mg/dL (8.6-10.3); Chloride 87 mEq/L (98-107); Globulin 2.7 g/dL (2.4-3.5); Glucose 288 mg/dL (70-105); Magnesium 1.7 mg/dL (1.6-2.6); Osmolality,Calculated 297 (280-300); Phosphorous 2.2 mg/dL (2.7-4.5); Potassium 4.1 mEq/L (3.5-5.1); Sodium 139 mEq/L (136-145); Total Protein 6.2 g/dL (6.4-8.9); eGFR For African Americans > 60 (> 60); eGFR For Non-African Americans > 60 (> 60)
[2017-12-13 18:47] LABS: Carbon Dioxide > 45 mEq/L (23-29)
[2017-12-13] MEDS: Bumetanide 1 MG/4 ML VIAL IVP SCH (18:50)
--- NOTE | 2017-12-13 19:50 | Electrocardiograph Report ---
[address] [place], [place] [address] Test Date: 2017-12-13 Pat Name: Bhavesh Thompson Department: 103 Room: [facility] Gender: M [employer] Accounts Manager: : 1955 Requested By: Joce Maurice Order Number: [id number] Reading MD: Hien Bean Measurements Intervals [place] Rate: 72 P: 58 MI: 159 QRS: 39 QRSD: 96 T: 1 QT: 365 QTc: 388 Interpretive Statements SINUS RHYTHM Electronically Signed On 12-13-2017 19:49:00 EST by Hien Bean
[2017-12-13] MEDS: Cefepime HCl 2,000 MG in Water for inj. (sterile) 20 ML IVP SCH (21:46)
[2017-12-13] MEDS: levETIRAcetam 250 MG TABLET PO SCH (21:47)
[2017-12-13] MEDS: Lactulose Oral Soln 20 GM/30 ML UDC PO SCH (21:49)
[2017-12-13] MEDS: *HR* Heparin 5,000 UNIT/ML VIAL SQ SCH (21:49)
[2017-12-13] MEDS ORDERED: Budesonide/Formoterol 80/4.5 MDI IH SCH (22:00)
[2017-12-13 23:19] LABS: Bilirubin,Urine Negative (Negative); Blood,Urine Negative (Negative); Clarity,Urine Clear (Clear); Color,Urine Yellow (Yellow); Glucose,Urine (UA) Normal (Normal); Ketones,Urine Negative (Negative); Leukocyte Esterase,Urine Negative (Negative); Nitrite,Urine Negative (Negative); Protein,Urine Negative (Neg-Trace); Specific Gravity,Urine 1.008 (1.010-1.025); Urobilinogen,Urine Normal (Normal)
[2017-12-14] MEDS ORDERED: Vancomycin 1,500 MG in D5% in Water 250 ML IVPB SCH
[2017-12-14] MEDS: Ipratropium/Albuterol Neb 3 ML IH SCH ×4 (03:43→22:01)
[2017-12-14 04:40] LABS: ABG Base Excess 23 mEq/L (-2 to 3); ABG HCO3 51 mEq/L (21-27); ABG Oxygen Saturation 90 % (95-98); ABG PCO2 75 mmHg (35-45); ABG PH 7.44 pH Units (7.32-7.45); ABG PO2 62 mmHg (85-104); ABG TCO2 53 mEq/L (20-26)
[2017-12-14] MEDS: *HR* Heparin 5,000 UNIT/ML VIAL SQ SCH ×2 (06:15→17:10)
[2017-12-14] MEDS: levETIRAcetam 250 MG TABLET PO SCH ×2 (06:15→17:10)
[2017-12-14] MEDS: Cefepime HCl 2,000 MG in Water for inj. (sterile) 20 ML IVP SCH ×2 (06:15→17:10)
--- NOTE | 2017-12-14 06:41 | Pulmonology Progress Note ---
<Leonides Guillen - Last Filed: 12/14/17 11:29> Date of Encounter: 12/14/17 Time of Encounter: 06:41 Assessment and Plan (1) Acute and chronic respiratory failure with hypercapnia Current Visit: Yes Status: Acute Patient has acute on chronic respiratory failure with hypercapnia secondary to pneumonia and acute diastolic congestive heart failure Chest x-ray demonstrates moderate right-sided pleural effusion with superimposed infiltrate Patient was recently discharged from [facility] a few days ago for similar complaints states that he has a poor compliance with BiPAP at home He additionally uses home oxygen 4 L at all times ABG this morning has significant improved with pH of 7.44, PCO2 35, PO2 62 and HCO3 51 We will continue with oxygen supplementation, BiPAP support as needed, IV antibiotics and bronchodilators Pending availability, patient will be transferred out of ICU to (2) Pneumonia involving right lung Current Visit: Yes Status: Acute Chest x-ray shows moderate right-sided pleural effusion superimposed infiltrate Decreased breath sounds on the right with crackles No leukocytosis Afebrile Blood and sputum cultures sent Legionella and strep antigen negative Respiratory infection panel negative Starting IV vancomycin and cefepime; de-escalate pending cultures Bronchodilators and BiPAP as needed; satting well on nasal cannula this morning Qualifiers: Pneumonia type: due to unspecified organism Lung location: middle lobe of lung Qualified Code(s): J18.1 - Lobar pneumonia, unspecified organism (3) Acute metabolic encephalopathy Current Visit: Yes Status: Acute Likely due to acidemia versus elevated ammonia levels Patient was able to open eyes and was arousable to stimulus on admission Has significantly improved with use of BiPAP overnight and is currently alert oriented 3 (4) Acute diastolic (congestive) heart failure Current Visit: Yes Status: Acute Chest x-ray shows moderate right-sided pleural effusion superimposed infiltrate Decreased breath sounds on the right with crackles 1+ pitting edema Echocardiogram on 04/04/17 the ventricular EF 60%, mild SI dysfunction of LV, no valvular dysfunction or wall motion abdomen allergies LHC on 08/31/17 and was otherwise unremarkable Plan: BiPAP at night and as needed 1 mg Bumex daily Strict I&Os 1500 fluid restriction Aspirin Statin Restart his beta donny today (5) Pleural effusion, right Current Visit: Yes Status: Acute Chest x-ray arrival demonstrates moderately right-sided pleural effusion with likely superimposed infiltrate See above (6) COPD (chronic obstructive pulmonary disease) Current Visit: No Status: Acute No wheezing heard on examination today Continue Bronchodilators and BiPAP for now. Titrate with nasal cannula as tolerated See above Qualifiers: COPD type: unspecified COPD Qualified Code(s): J44.9 - Chronic obstructive pulmonary disease, unspecified (7) 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, type II Current Visit: No Status: Chronic Diabetic diet Accu-Cheks 3 times a day and at night Increasing to medium dose sliding scale with Levemir home dose 5mg BID Qualifiers: 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 complication status: with circulatory complication 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 complication detail: with other circulatory complications 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 medical terminologist insulin use: with medical terminologist use Qualified Code(s) : E11.59 - Type 2 diabetes mellitus with other circulatory complications; Z79.4 - USP (current) use of insulin; Z79.4 - rat exterminator (current) use of insulin ; Z79.4 - rat exterminator (current) use of insulin; Z79.4 - rat exterminator (current) use of insulin (8) Tobacco abuse Current Visit: No Status: Chronic (9) Hepatitis C Current Visit: No Status: Chronic History of cirrhosis and elevated ammonia on admission Started lactulose 20 mg twice a day Ammonia at 54 this morning Bedside ultrasound very minimal ascites Qualifiers: Viral hepatitis chronicity: chronic Hepatic coma status: without hepatic coma Qualified Code(s): B18.2 - Chronic viral hepatitis C (10) Seizure disorder Current Visit: No Status: Acute Continue home dose of Keppra (11) Obesity (BMI 30-39.9) Current Visit: No Status: Chronic (12) DVT prophylaxis Current Visit: No Status: Acute Heparin 5000 units every 12hrs Subjective Interval history: Patient was admitted for acute on chronic respiratory failure with hypercapnia secondary to pneumonia and acute diastolic congestive heart failure Patient resting comfortably in bed this morning on nasal cannula 4 L No concerns overnight per nursing Patient is alert and oriented 3 Denies any new chest pain, palpitations, worsening shortness of breath, cough, abdominal pain or GI issues Objective PUL Vital signs: Last Vital Signs Temp 98.0 F 12/14/17 03:44 Pulse 90 12/14/17 06:00 Resp 18 12/14/17 06:00 BP 166/106 12/14/17 06:00 Pulse Ox 94 12/14/17 06:00 General appearance: no acute distress Eyes: nonicteric ENT: oropharynx moist Neck: supple Effort: normal Auscultation: right: diminished breath sounds (With crackles) Cardiovascular: regular rate and rhythm Gastrointestinal: normoactive bowel sounds, non-distended Integumentary: normal Extremities: edema (1+ pitting bilateral) Musculoskeletal: no deformities normal mental status, non-focal exam mood appropriate, affect normal Results - Laboratory Findings CBC and BMP: 12/14/17 07:42 12/14/17 07:42 ABG ABG pH 7.44 pH Units (7.32-7.45) 12/14/17 04:37 ABG pCO2 75 mmHg (35-45) H* 12/14/17 04:37 ABG pO2 62 mmHg (85-104) L 12/14/17 04:37 ABG O2 Saturation 90 % (95-98) L 12/14/17 04:37 Abnormal lab findings: Abnormal lab results RBC 3.76 M/mcL (4.19-5.50) L 12/13/17 12:20 Hgb 10.6 g/dL (12.9-16.9) L 12/13/17 12:20 Hct 36.3 % (37.5-50.1) L 12/13/17 12:20 MCHC 29.2 g/dL (31.6-35.5) L 12/13/17 12:20 RDW 14.6 % (11.5-14.5) H 12/13/17 12:20 ABG pCO2 75 mmHg (35-45) H* 12/14/17 04:37 ABG pO2 62 mmHg (85-104) L 12/14/17 04:37 ABG HCO3 51 mEq/L (21-27) H 12/14/17 04:37 ABG Total CO2 53 mEq/L (20-26) H 12/14/17 04:37 ABG O2 Saturation 90 % (95-98) L 12/14/17 04:37 ABG Base Excess 23 mEq/L (-2 to 3) H 12/14/17 04:37 Chloride 87 mEq/L (98-107) L 12/13/17 12:20 Carbon Dioxide > 45 mEq/L (23-29) H* 12/13/17 12:20 Glucose 288 mg/dL (70-105) H 12/13/17 12:20 POC Glucose 263 (58-89) H 12/13/17 19:42 Phosphorus 2.2 mg/dL (2.7-4.5) L 12/13/17 12:20 B-Natriuretic Peptide 279 pg/mL (Less than 100) H 12/13/17 12:20 Serum Total Protein 6.2 g/dL (6.4-8.9) L 12/13/17 12:20 Ur Specific [place] 1.008 (1.010-1.025) L 12/13/17 22:41 - Microbiology Findings Microbiology Findings: Microbiology, Last 48 Hours 12/13/17 22:41 Legionella Antigen - Final Urine,Clean Catch Streptococcus pneumoniae Antigen (M - Final - Clinical Findings Intake & Output: Intake & Output 12/13/17 12/13/17 12/14/17 15:59 23:59 07:59 Intake Total 320 / 320 250 / 250 Output Total 500 / 500 0 / 0 Balance -180 / -180 250 / 250 Weight 102.7 kg Consult Discharge Plan - Plan [facility]: [facility] Care Provider[facility] - <Willa Martin S - Last Filed: 12/14/17 19:43> Date of Encounter: 12/14/17 Objective PUL Vital signs: Last Vital Signs Temp 98.5 F 12/14/17 14:34 Pulse 94 12/14/17 14:34 Resp 18 12/14/17 16:29 BP 161/83 12/14/17 14:34 Pulse Ox 96 12/14/17 16:29 Results - Laboratory Findings CBC and BMP: 12/14/17 07:42 12/14/17 07:42 ABG ABG pH 7.44 pH Units (7.32-7.45) 12/14/17 04:37 ABG pCO2 75 mmHg (35-45) H* 12/14/17 04:37 ABG pO2 62 mmHg (85-104) L 12/14/17 04:37 ABG O2 Saturation 90 % (95-98) L 12/14/17 04:37 Abnormal lab findings: Abnormal lab results WBC 4.0 K/mcL (4.3-11.1) L 12/14/17 07:42 RBC 3.80 M/mcL (4.19-5.50) L 12/14/17 07:42 Hgb 10.7 g/dL (12.9-16.9) L 12/14/17 07:42 Hct 35.5 % (37.5-50.1) L 12/14/17 07:42 MCHC 30.1 g/dL (31.6-35.5) L 12/14/17 07:42 RDW 14.6 % (11.5-14.5) H 12/14/17 07:42 Plt Count 128 K/mcL (140-400) L 12/14/17 07:42 ABG pCO2 75 mmHg (35-45) H* 12/14/17 04:37 ABG pO2 62 mmHg (85-104) L 12/14/17 04:37 ABG HCO3 51 mEq/L (21-27) H 12/14/17 04:37 ABG Total CO2 53 mEq/L (20-26) H 12/14/17 04:37 ABG O2 Saturation 90 % (95-98) L 12/14/17 04:37 ABG Base Excess 23 mEq/L (-2 to 3) H 12/14/17 04:37 Chloride 89 mEq/L (98-107) L 12/14/17 07:42 Carbon Dioxide > 45 mEq/L (23-29) H* 12/14/17 07:42 BUN 6 mg/dL (8-23) L 12/14/17 07:42 Creatinine 0.68 mg/dL (0.70-1.30) L 12/14/17 07:42 Glucose 243 mg/dL (70-105) H 12/14/17 07:42 POC Glucose 263 (58-89) H 12/13/17 19:42 Phosphorus 2.2 mg/dL (2.7-4.5) L 12/13/17 12:20 Magnesium 1.5 mg/dL (1.6-2.6) L 12/14/17 07:42 Ammonia 54 mcmol/L (16-53) H 12/14/17 07:42 B-Natriuretic Peptide 279 pg/mL (Less than 100) H 12/13/17 12:20 Serum Total Protein 6.1 g/dL (6.4-8.9) L 12/14/17 07:42 Albumin 3.4 g/dL (3.5-5.7) L 12/14/17 07:42 Ur Specific [place] 1.008 (1.010-1.025) L 12/13/17 22:41 - Clinical Findings Intake & Output: Intake & Output 12/14/17 12/14/17 12/14/17 07:59 15:59 23:59 Intake Total 840 / 1080 362 / 362 Output Total 350 / 800 Balance 490 / 280 362 / 362 - Attending Attestation I saw and evaluated this patient and my medical decision-making was reviewed with the Resident Physician. I agree with the documented findings, disposition and treatment plan as described except to the extent set forth below. We independently had [id number] contact with the patient Patient seen and examined at bedside Labs, radiology, chart personally reviewed. 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 Cards:Hemodynamically stable acute on chronic diastolic heart failure To continue diuresis as tolerated FEN-GI Clear liquid diet advance diet as tolerated . Renal:Labs and UOP reviewed ID:Patent might have superimposed pneumonia will cover with broad spectrum antibiotics will follow blood cultures and sputum cultures Heme/Onc:Labs reviewed Endo: Glucose Monitored Integ/MSK: Skin Care per routine ICU Nursing Protocol to prevent ulcers. Lines: All lines examined without evidence of infection : Dispo: Critically because of Acute on chronic respiratory failure with high chance of worsening respiratory failure needing mechanical ventilation CODE:Full Code
[2017-12-14] MEDS ORDERED: Insulin LISPRO 300 UNITS/3 ML VIAL SQ SCH ×2 (07:34)
[2017-12-14] MEDS: Bumetanide 1 MG/4 ML VIAL IVP SCH (08:00)
[2017-12-14] MEDS: Lactulose Oral Soln 20 GM/30 ML UDC PO SCH ×2 (08:00→20:43)
[2017-12-14 08:10] LABS: Basophils % 0.2 %; Eosinophils # 0.1 K/mcL (0.0-0.6); Eosinophils % 3.2 %; Hematocrit 35.5 % (37.5-50.1); Hemoglobin 10.7 g/dL (12.9-16.9); Immature Granulocytes % 0.2 % (0-4); Lymphocytes # 0.8 K/mcL (0.6-4.6); Lymphocytes % 20.4 %; Mean Corpuscular HGB Conc 30.1 g/dL (31.6-35.5); Mean Corpuscular Hemoglobin 28.2 pg (28.0-33.3); Mean Corpuscular Volume 93.4 fL (83.0-100.0); Mean Platelet Volume 10.9 fL (9.4-12.4); Monocytes # 0.4 K/mcL (0.0-1.3); Monocytes % 9.7 %; Neutrophils # 2.7 K/mcL (1.6-8.9); Platelet Count 128 K/mcL (140-400); Red Cell Distribution Width 14.6 % (11.5-14.5); Segmented Neutrophils % 66.3 %
[2017-12-14 08:22] LABS: Alanine Aminotransferase 16 Units/L (7-52); Albumin 3.4 g/dL (3.5-5.7); Albumin/Globulin Ratio 1.3 (1.1-2.2); Alkaline Phosphatase 74 Units/L (34-104); Aspartate Amino Transferase 19 Units/L (13-39); BUN/Creatinine Ratio 9 (6-26); Bilirubin,Total 0.8 mg/dL (0.3-1.0); Blood Urea Nitrogen 6 mg/dL (8-23); Calcium 9.1 mg/dL (8.6-10.3); Carbon Dioxide > 45 mEq/L (23-29); Chloride 89 mEq/L (98-107); Globulin 2.7 g/dL (2.4-3.5); Glucose 243 mg/dL (70-105); Magnesium 1.5 mg/dL (1.6-2.6); Osmolality,Calculated 294 (280-300); Potassium 3.5 mEq/L (3.5-5.1); Sodium 139 mEq/L (136-145); Total Protein 6.1 g/dL (6.4-8.9); eGFR For African Americans > 60 (> 60); eGFR For Non-African Americans > 60 (> 60)
[2017-12-14 08:54] LABS: Adenovirus Not Detected (Not Detect); Bordetella Pertussis Not Detected (Not Detect); Chlamydophila pneumoniae Not Detected (Not Detect); Coronavirus 229E Not Detected (Not Detect); Coronavirus HKU1 Not Detected (Not Detect); Coronavirus NL63 Not Detected (Not Detect); Coronavirus OC43 Not Detected (Not Detect); Human Metapneumovirus Not Detected (Not Detect); Human Rhinovirus/Enterovirus Not Detected (Not Detect); Influenza A Subtype 2009 H1 Not Detected (Not Detect); Influenza A Untypeable Not Detected (Not Detect); Influenza B Not Detected (Not Detect); Mycoplasma pneumoniae Not Detected (Not Detect); Parainfluenza Virus 1 Not Detected (Not Detect); Parainfluenza Virus 2 Not Detected (Not Detect); Parainfluenza Virus 3 Not Detected (Not Detect); Parainfluenza Virus 4 Not Detected (Not Detect); Respiratory Syncytial Virus Not Detected (Not Detect)
[2017-12-14] MEDS ORDERED: Aspirin 81 MG TAB.CHEW PO SCH (09:00)
[2017-12-14] MEDS ORDERED: *HR* Dextrose 50 % in Water (Syg) 50 ML SYRINGE IVP PRN (09:21)
[2017-12-14] MEDS ORDERED: D5% in Water 1,000 ML IVC PRN (09:21)
[2017-12-14] MEDS ORDERED: Albuterol 2.5 MG/3 ML NEBULIZER IH PRN (09:21)
[2017-12-14] MEDS ORDERED: Naloxone 0.4 MG/ML INJ IVP PRN (09:21)
[2017-12-14] MEDS ORDERED: Dextrose Gel 15 GM/37.5 ML TUBE PO PRN ×2 (09:21)
[2017-12-14] MEDS: Budesonide/Formoterol 80/4.5 MDI IH SCH ×2 (09:53→22:01)
[2017-12-14] MEDS: Insulin LISPRO 300 UNITS/3 ML VIAL SQ SCH ×3 (11:55→20:42)
[2017-12-14] MEDS ORDERED: Vancomycin 1,500 MG in D5% in Water 250 ML IVPB ONE (13:00)
[2017-12-14] MEDS: *HR* OxyCODONE/APAP 5/325 TABLET PO PRN ×2 (13:31→23:33)
[2017-12-14] MEDS ORDERED: Vancomycin 1,250 MG in D5% in Water 250 ML IVPB SCH (19:00)
[2017-12-14] MEDS: Insulin DETEMIR 100 UNIT/ML X5UNITS SQ SCH (20:43)
[2017-12-15] MEDS ORDERED: Vancomycin 1,250 MG in D5% in Water 250 ML IVPB SCH
[2017-12-15] MEDS: Vancomycin 1,250 MG in D5% in Water 250 ML IVPB SCH ×2 (01:59→11:53)
[2017-12-15] MEDS: Ipratropium/Albuterol Neb 3 ML IH SCH ×4 (03:38→22:45)
[2017-12-15] MEDS: Cefepime HCl 2,000 MG in Water for inj. (sterile) 20 ML IVP SCH ×2 (06:14→17:19)
[2017-12-15] MEDS: levETIRAcetam 250 MG TABLET PO SCH ×2 (06:14→17:19)
[2017-12-15] MEDS: *HR* Heparin 5,000 UNIT/ML VIAL SQ SCH ×2 (06:14→17:19)
[2017-12-15] MEDS: Lactulose Oral Soln 20 GM/30 ML UDC PO SCH ×2 (08:17→21:25)
[2017-12-15] MEDS: Bumetanide 1 MG/4 ML VIAL IVP SCH (08:17)
[2017-12-15] MEDS: Insulin LISPRO 300 UNITS/3 ML VIAL SQ SCH ×4 (08:18→21:26)
[2017-12-15] MEDS: Aspirin 81 MG TAB.CHEW PO SCH (08:18)
[2017-12-15] MEDS: Insulin DETEMIR 100 UNIT/ML X5UNITS SQ SCH ×2 (08:20→21:25)
[2017-12-15] MEDS: *HR* OxyCODONE/APAP 5/325 TABLET PO PRN ×3 (08:21→23:21)
[2017-12-15] MEDS: Budesonide/Formoterol 80/4.5 MDI IH SCH ×2 (10:37→22:45)
[2017-12-15] MEDS ORDERED: Aminoglycoside Consult 1 EACH MC ONE (11:47)
--- NOTE | 2017-12-15 12:14 | Internal Med Progress Note ---
Date of Encounter: 12/15/17 Time of Encounter: 12:11 - Assessment and plan (1) Acute and chronic respiratory failure with hypercapnia Current Visit: Yes Status: Acute (2) Acute diastolic (congestive) heart failure Current Visit: Yes Status: Acute Assessment and plan: We will repeat a chest x-ray. Repeat ABG. Continue with diuresis but watch for alkalosis. Continue fluid restrictions. Continue with beta donny. Patient is also on lisinopril. Echocardiogram on 04/04/17 the ventricular EF 60%, mild SI dysfunction of LV, no valvular dysfunction or wall motion abdomen allergies LHC on 08/31/17 and was otherwise unremarkable (3) Acute metabolic encephalopathy Current Visit: Yes Status: Acute Assessment and plan: Improving. Likely secondary to CO2 retention. He did have elevated ammonia level at 54 from which he has been on Paxil dose. We will repeat ammonia levels. (4) Pleural effusion, right Current Visit: Yes Status: Acute Assessment and plan: Patient has been diuresed however we are running into alkalosis currently.. Could be secondary to CHF exacerbation versus pneumonia causing effusion. We will repeat a chest x-ray and if it significant pleural effusion will ask IR to drain. I am hesitant to continue with diuresis given his rising bicarbonates (5) Pneumonia involving right lung Current Visit: Yes Status: Acute Assessment and plan: Continue with broad-spectrum antibiotics with vancomycin and cefepime. O2 support as tolerated. Continue nebulizers. Follow up on cultures. Qualifiers: Pneumonia type: due to unspecified organism Lung location: middle lobe of lung Qualified Code(s): J18.1 - Lobar pneumonia, unspecified organism (6) COPD (chronic obstructive pulmonary disease) Current Visit: No Status: Acute Assessment and plan: No wheezes on exam. Continue nebs. Qualifiers: COPD type: unspecified COPD Qualified Code(s): J44.9 - Chronic obstructive pulmonary disease, unspecified (7) Seizure disorder Current Visit: No Status: Acute Assessment and plan: continue Keppra (8) 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, type II Current Visit: No Status: Chronic Assessment and plan: Glucose uncontrolled. Currently on 5 units of Levemir twice a day and a sliding scale insulin. We will increase to 15 units of Levemir twice a day. Continue with insulin sliding scale. Continue with Accu-Cheks Qualifiers: 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 complication status: with circulatory complication 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 complication detail: with other circulatory complications 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 control servicer insulin use: with termite control servicer use Qualified Code(s) : E11.59 - Type 2 diabetes mellitus with other circulatory complications; Z79.4 - FPC (current) use of insulin; Z79.4 - computer terminal operator (current) use of insulin ; Z79.4 - FPC (current) use of insulin; Z79.4 - FPC (current) use of insulin (9) Hepatitis C Current Visit: No Status: Chronic Qualifiers: Viral hepatitis chronicity: chronic Hepatic coma status: without hepatic coma Qualified Code(s): B18.2 - Chronic viral hepatitis C (10) Hypertension Current Visit: No Status: Chronic Assessment and plan: Continue lisinopril and metoprolol. Blood pressure is somewhat elevated. We will add hydralazine to be used when necessary. If needed we can increase lisinopril as well. Continue to monitor Qualifiers: Hypertension type: essential hypertension Qualified Code(s): I10 - Essential (primary) hypertension (11) DVT prophylaxis Current Visit: No Status: Acute Assessment and plan: Heparin subcutaneous - Subjective Interval history: Patient was seen and examined. He was admitted on 12/13 with acute hypoxic hypercarbic respiratory failure. Was admitted to the ICU. Found to have pneumonia and right pleural effusions. He has been started on broad-spectrum IV antibiotics and has been getting diuresis. Has been maintained on BiPAP. His ABGs were consistent with significant hypercarbia. PCO2 was on the BMPs have been elevated however it seems that he does have some chronic CO2 retention. This is above his baseline however. He does have chronic oxygen use at home with 4 L. He has been afebrile here. Currently on 4 L of nasal cannula oxygen. He did use BiPAP at night. - Constitutional Vitals: Temp Pulse Resp BP Pulse Ox 98.6 F 72 15 171/78 95 12/15/17 11:49 12/15/17 11:49 12/15/17 11:49 12/15/17 11:49 12/15/17 11:49 Exam: GEN: NAD CVS: RRR. S1, S2, No m/r/g RESP: Diminished with bibasilar crackles. Also coarse at the bases. ABD: Soft, NT, ND, +BS EXT: 1+ edema. 2+ DP. No rashes NEURO: Nonfocal Internal Medicine: Result - Labs CBC & Chem 7: 12/14/17 07:42 12/14/17 07:42 - ABG Interpretation ABG results: ABG ABG pH 7.44 pH Units (7.32-7.45) 12/14/17 04:37 ABG pCO2 75 mmHg (35-45) H* 12/14/17 04:37 ABG pO2 62 mmHg (85-104) L 12/14/17 04:37 ABG O2 Saturation 90 % (95-98) L 12/14/17 04:37 Consult Discharge Plan - Plan [facility]errals: [facility]Primary Care Provider[facility] - 12/22/17 9:15 am ([facility] team. Please fax records to [phone])
[2017-12-15] MEDS ORDERED: Insulin DETEMIR 100 UNIT/ML X5UNITS SQ ONE (12:16)
[2017-12-15 12:42] LABS: Basophils % 0.4 %; Eosinophils # 0.1 K/mcL (0.0-0.6); Eosinophils % 2.7 %; Hemoglobin 11.7 g/dL (12.9-16.9); Immature Granulocytes % 0.2 % (0-4); Lymphocytes % 19.5 %; Mean Corpuscular Hemoglobin 27.7 pg (28.0-33.3); Mean Corpuscular Volume 92.2 fL (83.0-100.0); Mean Platelet Volume 10.3 fL (9.4-12.4); Monocytes # 0.5 K/mcL (0.0-1.3); Neutrophils # 3.6 K/mcL (1.6-8.9); Platelet Count 159 K/mcL (140-400); Red Blood Count 4.23 M/mcL (4.19-5.50); Red Cell Distribution Width 14.6 % (11.5-14.5); Segmented Neutrophils % 68.2 %
[2017-12-15 13:03] LABS: BUN/Creatinine Ratio 8 (6-26); Blood Urea Nitrogen 7 mg/dL (8-23); Calcium 9.4 mg/dL (8.6-10.3); Carbon Dioxide > 45 mEq/L (23-29); Chloride 89 mEq/L (98-107); Glucose 278 mg/dL (70-105); Osmolality,Calculated 298 (280-300); Potassium 3.6 mEq/L (3.5-5.1); Sodium 140 mEq/L (136-145); eGFR For African Americans > 60 (> 60); eGFR For Non-African Americans > 60 (> 60)
[2017-12-15 16:27] LABS: ABG Base Excess 20 mEq/L (-2 to 3); ABG HCO3 49 mEq/L (21-27); ABG Oxygen Saturation 95 % (95-98); ABG PCO2 77 mmHg (35-45); ABG PH 7.41 pH Units (7.32-7.45); ABG PO2 79 mmHg (85-104); ABG TCO2 51 mEq/L (20-26)
[2017-12-16] MEDS: Vancomycin 1,250 MG in D5% in Water 250 ML IVPB SCH (00:37)
[2017-12-16] MEDS: Ipratropium/Albuterol Neb 3 ML IH SCH ×4 (04:39→22:29)
[2017-12-16] MEDS: levETIRAcetam 250 MG TABLET PO SCH ×2 (05:44→16:58)
[2017-12-16] MEDS: Cefepime HCl 2,000 MG in Water for inj. (sterile) 20 ML IVP SCH (05:44)
[2017-12-16] MEDS: *HR* OxyCODONE/APAP 5/325 TABLET PO PRN ×3 (05:44→21:29)
[2017-12-16] MEDS: *HR* Heparin 5,000 UNIT/ML VIAL SQ SCH ×2 (05:45→16:58)
[2017-12-16 06:44] LABS: Basophils % 0.7 %; Eosinophils # 0.2 K/mcL (0.0-0.6); Eosinophils % 4.5 %; Hematocrit 35.3 % (37.5-50.1); Hemoglobin 10.6 g/dL (12.9-16.9); Immature Granulocytes % 0.2 % (0-4); Lymphocytes # 1.3 K/mcL (0.6-4.6); Lymphocytes % 32.2 %; Mean Corpuscular Hemoglobin 27.6 pg (28.0-33.3); Mean Corpuscular Volume 91.9 fL (83.0-100.0); Mean Platelet Volume 10.4 fL (9.4-12.4); Monocytes # 0.4 K/mcL (0.0-1.3); Monocytes % 9.7 %; Neutrophils # 2.1 K/mcL (1.6-8.9); Platelet Count 127 K/mcL (140-400); Red Blood Count 3.84 M/mcL (4.19-5.50); Red Cell Distribution Width 14.6 % (11.5-14.5); Segmented Neutrophils % 52.7 %
[2017-12-16 07:23] LABS: BUN/Creatinine Ratio 14 (6-26); Blood Urea Nitrogen 12 mg/dL (8-23); Calcium 8.6 mg/dL (8.6-10.3); Carbon Dioxide 43 mEq/L (23-29); Chloride 93 mEq/L (98-107); Glucose 215 mg/dL (70-105); Osmolality,Calculated 296 (280-300); Potassium 3.4 mEq/L (3.5-5.1); Sodium 140 mEq/L (136-145); eGFR For African Americans > 60 (> 60); eGFR For Non-African Americans > 60 (> 60)
[2017-12-16] MEDS: Lactulose Oral Soln 20 GM/30 ML UDC PO SCH ×2 (07:54→21:30)
[2017-12-16] MEDS: Aspirin 81 MG TAB.CHEW PO SCH (07:54)
[2017-12-16] MEDS: Bumetanide 1 MG/4 ML VIAL IVP SCH (07:54)
[2017-12-16] MEDS: Insulin LISPRO 300 UNITS/3 ML VIAL SQ SCH ×4 (07:54→21:30)
[2017-12-16] MEDS: Insulin DETEMIR 100 UNIT/ML X5UNITS SQ SCH ×2 (07:55→21:29)
[2017-12-16] MEDS: Budesonide/Formoterol 80/4.5 MDI IH SCH ×2 (11:17→22:29)
[2017-12-16] MEDS ORDERED: Insulin DETEMIR 100 UNIT/ML X5UNITS SQ ONE (11:21)
--- NOTE | 2017-12-16 11:32 | Internal Med Progress Note ---
Date of Encounter: 12/16/17 Time of Encounter: 11:30 - Assessment and plan (1) Acute and chronic respiratory failure with hypercapnia Current Visit: Yes Status: Acute Assessment and plan: Improving. Currently on his chronic or 28th of about 4 L. continue with nebulizers. (2) Acute diastolic (congestive) heart failure Current Visit: Yes Status: Acute Assessment and plan: Chest x-ray improved. Hold diuresis today given contraction alkalosis. Eventually he will need to be discharged on some diuretic which I will discuss with the patient at discharge. Continue fluid restrictions. Continue with beta donny. Patient is also on lisinopril. Echocardiogram on 04/04/17 the ventricular EF 60%, mild SI dysfunction of LV, no valvular dysfunction or wall motion abdomen allergies LHC on 08/31/17 and was otherwise unremarkable (3) Acute metabolic encephalopathy Current Visit: Yes Status: Acute Assessment and plan: Improving. Likely secondary to CO2 retention. He did have elevated ammonia level at 54 from which he has been on lactulose. Ammonia level 26 this morning.. (4) Pleural effusion, right Current Visit: Yes Status: Acute Assessment and plan: Patient has been diuresed however we are running into alkalosis currently. Could be secondary to CHF exacerbation versus pneumonia causing effusion. (5) Pneumonia involving right lung Current Visit: Yes Status: Acute Assessment and plan: stop vancomycin and cefepime and put the patient on levaquin. cultures have been negative. O2 support as tolerated. Continue nebulizers. Qualifiers: Pneumonia type: due to unspecified organism Lung location: middle lobe of lung Qualified Code(s): J18.1 - Lobar pneumonia, unspecified organism (6) COPD (chronic obstructive pulmonary disease) Current Visit: No Status: Acute Assessment and plan: No wheezes on exam. Continue nebs. Qualifiers: COPD type: unspecified COPD Qualified Code(s): J44.9 - Chronic obstructive pulmonary disease, unspecified (7) Seizure disorder Current Visit: No Status: Acute Assessment and plan: continue Keppra (8) 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, type II Current Visit: No Status: Chronic Assessment and plan: Glucose uncontrolled. Increase levemir to 25 unite BID. Continue with insulin sliding scale. Continue with Accu-Cheks Qualifiers: 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 complication status: with circulatory complication 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 complication detail: with other circulatory complications 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 care home insulin use: with care home use Qualified Code(s) : E11.59 - Type 2 diabetes mellitus with other circulatory complications; Z79.4 - senior living (current) use of insulin; Z79.4 - senior living (current) use of insulin ; Z79.4 - senior living (current) use of insulin; Z79.4 - oil heaterman (current) use of insulin (9) Hepatitis C Current Visit: No Status: Chronic Assessment and plan: treated in the past Qualifiers: Viral hepatitis chronicity: chronic Hepatic coma status: without hepatic coma Qualified Code(s): B18.2 - Chronic viral hepatitis C (10) Hypertension Current Visit: No Status: Chronic Assessment and plan: Continue lisinopril and metoprolol. Blood pressure is controlled. c/w hydralazine to be used when necessary. If needed we can increase lisinopril as well. Continue to monitor Qualifiers: Hypertension type: essential hypertension Qualified Code(s): I10 - Essential (primary) hypertension (11) DVT prophylaxis Current Visit: No Status: Acute Assessment and plan: Heparin subcutaneous - Subjective Interval history: Patient was seen and examined. Feels much better. He was admitted on 12/13 with acute hypoxic hypercarbic respiratory failure. Was admitted to the ICU. Found to have pneumonia and right pleural effusions. He has been started on broad-spectrum IV antibiotics and has been getting diuresis. Has been maintained on BiPAP. His ABGs were consistent with significant hypercarbia. PCO2 has been elevated however it seems that he does have some chronic CO2 retention. This is above his baseline however. He does have chronic oxygen use at home with 4 L. He has been afebrile here. Currently on 4 L of nasal cannula oxygen. He did use BiPAP at night. - Constitutional Vitals: Temp Pulse Resp BP Pulse Ox 97.9 F 68 17 138/75 96 12/16/17 07:35 12/16/17 08:01 12/16/17 11:18 12/16/17 07:35 12/16/17 11:18 Exam: GEN: NAD CVS: RRR. S1, S2, No m/r/g RESP: Diminished. coarse at the bases. ABD: Soft, NT, ND, +BS EXT: 1+ edema. 2+ DP. No rashes NEURO: Nonfocal Internal Medicine: Result - Labs CBC & Chem 7: 12/16/17 06:29 02/02/18 06:29 Labs: Short CBC 12/15/17 12/16/17 Range/Units 12:34 06:29 WBC 5.2 4.0 L (4.3-11.1) K/mcL Hgb 11.7 L 10.6 L (12.9-16.9) g/dL Hct 39.0 35.3 L (37.5-50.1) % Plt Count 159 127 L (140-400) K/mcL Neutrophils # 3.6 2.1 (1.6-8.9) K/mcL BMP 12/15/17 12/16/17 12:28 06:29 Sodium 140 140 Potassium 3.6 3.4 L Chloride 89 L 93 L Carbon Dioxide > 45 H* 43 H* BUN 7 L 12 Creatinine 0.88 0.83 Glucose 278 H 215 H Calcium 9.4 8.6 - ABG Interpretation ABG results: ABG ABG pH 7.41 pH Units (7.32-7.45) 12/15/17 16:22 ABG pCO2 77 mmHg (35-45) H* 12/15/17 16:22 ABG pO2 79 mmHg (85-104) L 12/15/17 16:22 ABG O2 Saturation 95 % (95-98) 12/15/17 16:22 - Impressions Impressions Chest X-Ray 12/15/17 12:08 IMPRESSION: Improving small right pleural effusion and atelectasis. Improving left basilar atelectasis with no new focal consolidation. D/ / Artis Zhu MD / Artis Zhu MD Interpreting Provider: Artis Zhu MD Consult Discharge Plan - Plan Referrals: DINORAH,PCP [Primary Care Provider] - 12/22/17 9:15 am ([facility] team. Please fax records to [phone])
[2017-12-16] MEDS: levoFLOXacin 750 MG TABLET PO SCH (12:11)
[2017-12-17] MEDS: *HR* OxyCODONE/APAP 5/325 TABLET PO PRN ×4 (03:53→23:19)
[2017-12-17] MEDS: Ipratropium/Albuterol Neb 3 ML IH SCH ×4 (04:13→22:54)
[2017-12-17 04:44] LABS: Basophils % 0.5 %; Eosinophils # 0.3 K/mcL (0.0-0.6); Eosinophils % 4.7 %; Hematocrit 36.8 % (37.5-50.1); Immature Granulocytes % 0.3 % (0-4); Lymphocytes # 1.7 K/mcL (0.6-4.6); Lymphocytes % 29.3 %; Mean Corpuscular HGB Conc 29.9 g/dL (31.6-35.5); Mean Corpuscular Hemoglobin 27.4 pg (28.0-33.3); Mean Corpuscular Volume 91.8 fL (83.0-100.0); Mean Platelet Volume 10.6 fL (9.4-12.4); Monocytes # 0.4 K/mcL (0.0-1.3); Monocytes % 7.1 %; Neutrophils # 3.4 K/mcL (1.6-8.9); Platelet Count 166 K/mcL (140-400); Red Blood Count 4.01 M/mcL (4.19-5.50); Red Cell Distribution Width 14.6 % (11.5-14.5); Segmented Neutrophils % 58.1 %
[2017-12-17 05:05] LABS: BUN/Creatinine Ratio 13 (6-26); Blood Urea Nitrogen 12 mg/dL (8-23); Carbon Dioxide 43 mEq/L (23-29); Chloride 94 mEq/L (98-107); Glucose 96 mg/dL (70-105); Osmolality,Calculated 290 (280-300); Potassium 3.7 mEq/L (3.5-5.1); Sodium 140 mEq/L (136-145); eGFR For African Americans > 60 (> 60); eGFR For Non-African Americans > 60 (> 60)
[2017-12-17] MEDS: *HR* Heparin 5,000 UNIT/ML VIAL SQ SCH ×2 (05:31→16:40)
[2017-12-17] MEDS: levETIRAcetam 250 MG TABLET PO SCH ×2 (05:31→16:40)
[2017-12-17] MEDS: Insulin LISPRO 300 UNITS/3 ML VIAL SQ SCH ×4 (07:38→20:12)
[2017-12-17] MEDS: Aspirin 81 MG TAB.CHEW PO SCH (07:42)
[2017-12-17] MEDS: Lactulose Oral Soln 20 GM/30 ML UDC PO SCH ×2 (07:42→20:13)
[2017-12-17] MEDS: levoFLOXacin 750 MG TABLET PO SCH (07:42)
[2017-12-17] MEDS: Insulin DETEMIR 100 UNIT/ML X5UNITS SQ SCH ×2 (09:27→20:13)
[2017-12-17] MEDS: Budesonide/Formoterol 80/4.5 MDI IH SCH ×2 (10:15→22:54)
--- NOTE | 2017-12-17 12:29 | Internal Med Progress Note ---
Date of Encounter: 12/17/17 Time of Encounter: 10:00 - Assessment and plan (1) Acute and chronic respiratory failure with hypercapnia Current Visit: Yes Status: Acute Assessment and plan: Improving. Currently on his chronic O2 needs of about 3-4 L. continue with nebulizers. (2) Acute diastolic (congestive) heart failure Current Visit: Yes Status: Acute Assessment and plan: Chest x-ray improved. Hold diuresis again given contraction alkalosis. Eventually he will need to be discharged on some diuretic which I will discuss with the patient at discharge. Continue fluid restrictions. Continue with beta donny. Patient is also on lisinopril. Echocardiogram on 04/04/17 the ventricular EF 60%, mild SI dysfunction of LV, no valvular dysfunction or wall motion abdomen allergies LHC on 08/31/17 and was otherwise unremarkable (3) Acute metabolic encephalopathy Current Visit: Yes Status: Acute Assessment and plan: Improving. Likely secondary to CO2 retention. He did have elevated ammonia level at 54 from which he has been on lactulose. Ammonia level 26 this morning.. (4) Pleural effusion, right Current Visit: Yes Status: Acute Assessment and plan: Patient has been diuresed however we are running into alkalosis currently. Could be secondary to CHF exacerbation versus pneumonia causing effusion. (5) Pneumonia involving right lung Current Visit: Yes Status: Acute Assessment and plan: stop vancomycin and cefepime and put the patient on levaquin. cultures have been negative. O2 support as tolerated. Continue nebulizers. Qualifiers: Pneumonia type: due to unspecified organism Lung location: middle lobe of lung Qualified Code(s): J18.1 - Lobar pneumonia, unspecified organism (6) COPD (chronic obstructive pulmonary disease) Current Visit: No Status: Acute Assessment and plan: No wheezes on exam. Continue nebs. Qualifiers: COPD type: unspecified COPD Qualified Code(s): J44.9 - Chronic obstructive pulmonary disease, unspecified (7) Seizure disorder Current Visit: No Status: Acute Assessment and plan: continue Keppra (8) 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, type II Current Visit: No Status: Chronic Assessment and plan: Glucose uncontrolled. Increase levemir to 25 unite BID. Continue with insulin sliding scale. 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 Blood pressure is controlled. c/w hydralazine to be used when necessary. If needed we can increase lisinopril as well. Continue to monitor Qualifiers: Hypertension type: essential hypertension Qualified Code(s): I10 - Essential (primary) hypertension (11) DVT prophylaxis Current Visit: No Status: Acute Assessment and plan: Heparin subcutaneous - Subjective Interval history: Patient was seen and examined. Feels much better. [facility] He was admitted on 12/13 with acute hypoxic hypercarbic respiratory failure. Was admitted to the ICU. Found to have pneumonia and right pleural effusions. He has been started on broad-spectrum IV antibiotics and has been getting diuresis. Has been maintained on BiPAP. His ABGs were consistent with significant hypercarbia. PCO2 has been elevated however it seems that he does have some chronic CO2 retention. This is above his baseline however. He does have chronic oxygen use at home with 4 L. He has been afebrile here. Currently on 4 L of nasal cannula oxygen. He did use BiPAP at night. - Constitutional Vitals: Temp Pulse Resp BP Pulse Ox 98.0 F 74 18 124/74 90 12/17/17 10:58 12/17/17 10:58 12/17/17 10:58 12/17/17 10:58 12/17/17 10:58 Exam: GEN: NAD CVS: RRR. S1, S2, No m/r/g RESP: Diminished. coarse at the bases. ABD: Soft, NT, ND, +BS EXT: 1+ edema. 2+ DP. No rashes NEURO: Nonfocal Internal Medicine: Result - Labs CBC & Chem 7: 12/17/17 04:18 12/17/17 04:18 Labs: Short CBC 12/17/17 Range/Units 04:18 WBC 5.8 (4.3-11.1) K/mcL Hgb 11.0 L (12.9-16.9) g/dL Hct 36.8 L (37.5-50.1) % Plt Count 166 (140-400) K/mcL Neutrophils # 3.4 (1.6-8.9) K/mcL BMP 12/17/17 04:18 Sodium 140 Potassium 3.7 Chloride 94 L Carbon Dioxide 43 H* BUN 12 Creatinine 0.91 Glucose 96 Calcium 9.0 - ABG Interpretation ABG results: ABG ABG pH 7.41 pH Units (7.32-7.45) 12/15/17 16:22 ABG pCO2 77 mmHg (35-45) H* 12/15/17 16:22 ABG pO2 79 mmHg (85-104) L 12/15/17 16:22 ABG O2 Saturation 95 % (95-98) 12/15/17 16:22 Consult Discharge Plan - Plan [facility]errals: [facility] [Primary Care Provider[facility] - 12/22/17 9:15 am ([facility] team. Please fax records to [phone])
[2017-12-18 01:34] LABS: Basophils % 0.6 %; Eosinophils # 0.2 K/mcL (0.0-0.6); Eosinophils % 4.1 %; Hematocrit 34.8 % (37.5-50.1); Hemoglobin 10.5 g/dL (12.9-16.9); Immature Granulocytes % 0.4 % (0-4); Lymphocytes # 1.4 K/mcL (0.6-4.6); Mean Corpuscular HGB Conc 30.2 g/dL (31.6-35.5); Mean Corpuscular Hemoglobin 27.4 pg (28.0-33.3); Mean Corpuscular Volume 90.9 fL (83.0-100.0); Mean Platelet Volume 11.3 fL (9.4-12.4); Monocytes # 0.4 K/mcL (0.0-1.3); Monocytes % 7.2 %; Neutrophils # 3.3 K/mcL (1.6-8.9); Platelet Count 159 K/mcL (140-400); Red Blood Count 3.83 M/mcL (4.19-5.50); Red Cell Distribution Width 14.6 % (11.5-14.5); Segmented Neutrophils % 61.7 %
[2017-12-18 01:52] LABS: BUN/Creatinine Ratio 14 (6-26); Blood Urea Nitrogen 15 mg/dL (8-23); Carbon Dioxide 39 mEq/L (23-29); Chloride 96 mEq/L (98-107); Glucose 179 mg/dL (70-105); Osmolality,Calculated 293 (280-300); Potassium 3.9 mEq/L (3.5-5.1); Sodium 139 mEq/L (136-145); eGFR For African Americans > 60 (> 60); eGFR For Non-African Americans > 60 (> 60)
[2017-12-18] MEDS: Ipratropium/Albuterol Neb 3 ML IH SCH ×4 (04:46→22:10)
[2017-12-18] MEDS: *HR* Heparin 5,000 UNIT/ML VIAL SQ SCH ×2 (05:47→16:50)
[2017-12-18] MEDS: *HR* OxyCODONE/APAP 5/325 TABLET PO PRN ×4 (05:47→23:26)
[2017-12-18] MEDS: levETIRAcetam 250 MG TABLET PO SCH ×2 (05:47→16:51)
[2017-12-18] MEDS: Aspirin 81 MG TAB.CHEW PO SCH (07:57)
[2017-12-18] MEDS: Lactulose Oral Soln 20 GM/30 ML UDC PO SCH ×2 (07:57→20:13)
[2017-12-18] MEDS: levoFLOXacin 750 MG TABLET PO SCH (07:57)
[2017-12-18] MEDS: Insulin LISPRO 300 UNITS/3 ML VIAL SQ SCH ×4 (07:59→20:13)
[2017-12-18] MEDS: Insulin DETEMIR 100 UNIT/ML X5UNITS SQ SCH ×2 (08:49→20:13)
[2017-12-18] MEDS: Budesonide/Formoterol 80/4.5 MDI IH SCH ×2 (09:10→22:10)
--- NOTE | 2017-12-18 11:07 | Internal Med Progress Note ---
Date of Encounter: 12/18/17 Time of Encounter: 08:40 - Assessment and plan (1) Acute and chronic respiratory failure with hypercapnia Current Visit: Yes Status: Acute Assessment and plan: Improving. He is on 2 L currently. He has chronic O2 needs of about 3-4 L. continue with nebulizers. (2) Acute diastolic (congestive) heart failure Current Visit: Yes Status: Acute Assessment and plan: Chest x-ray improved. Hold diuresis again given contraction alkalosis which is improving. Eventually he will need to be discharged on some diuretic which I will discuss with the patient at discharge. Continue fluid restrictions. Continue with beta donny. Patient is also on lisinopril. Echocardiogram on 04/04/17 the ventricular EF 60%, mild SI dysfunction of LV, no valvular dysfunction or wall motion abdomen allergies LHC on 08/31/17 and was otherwise unremarkable (3) Acute metabolic encephalopathy Current Visit: Yes Status: Acute Assessment and plan: Improving. Likely secondary to CO2 retention. He did have elevated ammonia level at 54 from which he has been on lactulose. Ammonia level 26 this morning.. (4) Pleural effusion, right Current Visit: Yes Status: Acute Assessment and plan: Patient has been diuresed however we are running into alkalosis currently. Could be secondary to CHF exacerbation versus pneumonia causing effusion. (5) Pneumonia involving right lung Current Visit: Yes Status: Acute Assessment and plan: stopped vancomycin and cefepime and put the patient on levaquin. cultures have been negative. O2 support as tolerated. Continue nebulizers. Qualifiers: Pneumonia type: due to unspecified organism Lung location: middle lobe of lung Qualified Code(s): J18.1 - Lobar pneumonia, unspecified organism (6) COPD (chronic obstructive pulmonary disease) Current Visit: No Status: Acute Assessment and plan: No wheezes on exam. Continue nebs. Qualifiers: COPD type: unspecified COPD Qualified Code(s): J44.9 - Chronic obstructive pulmonary disease, unspecified (7) Seizure disorder Current Visit: No Status: Acute Assessment and plan: continue Keppra (8) 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, type II Current Visit: No Status: Chronic Assessment and plan: Glucose uncontrolled. Increase levemir to 25 unite BID. Continue with insulin sliding scale. 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 Blood pressure is controlled. c/w hydralazine to be used when necessary. If needed we can increase lisinopril as well. Continue to monitor Qualifiers: Hypertension type: essential hypertension Qualified Code(s): I10 - Essential (primary) hypertension (11) DVT prophylaxis Current Visit: No Status: Acute Assessment and plan: Heparin subcutaneous - Subjective Interval history: Patient was seen and examined. Remains stable. Slept well.. [facility] . He was admitted on 12/13 with acute hypoxic hypercarbic respiratory failure. Was admitted to the ICU. Found to have pneumonia and right pleural effusions. He has been started on broad-spectrum IV antibiotics and has been getting diuresis. Has been maintained on BiPAP. His ABGs were consistent with significant hypercarbia. PCO2 has been elevated however it seems that he does have some chronic CO2 retention. This is above his baseline however. He does have chronic oxygen use at home with 4 L. He has been afebrile here. Currently on 4 L of nasal cannula oxygen. He did use BiPAP at night. - Constitutional Vitals: Temp Pulse Resp BP Pulse Ox 97.6 F 66 18 114/68 95 12/18/17 07:53 12/18/17 08:02 12/18/17 09:11 12/18/17 07:53 12/18/17 09:11 Exam: GEN: NAD CVS: RRR. S1, S2, No m/r/g RESP: Diminished. coarse at the bases. ABD: Soft, NT, ND, +BS EXT: 1+ edema. 2+ DP. No rashes NEURO: Nonfocal Internal Medicine: Result - Labs CBC & Chem 7: 12/18/17 01:21 12/18/17 01:21 Labs: Short CBC 12/18/17 Range/Units 01:21 WBC 5.3 (4.3-11.1) K/mcL Hgb 10.5 L (12.9-16.9) g/dL Hct 34.8 L (37.5-50.1) % Plt Count 159 (140-400) K/mcL Neutrophils # 3.3 (1.6-8.9) K/mcL BMP 12/18/17 01:21 Sodium 139 Potassium 3.9 Chloride 96 L Carbon Dioxide 39 H BUN 15 Creatinine 1.08 Glucose 179 H Calcium 9.0 - ABG Interpretation ABG results: ABG ABG pH 7.41 pH Units (7.32-7.45) 12/15/17 16:22 ABG pCO2 77 mmHg (35-45) H* 12/15/17 16:22 ABG pO2 79 mmHg (85-104) L 12/15/17 16:22 ABG O2 Saturation 95 % (95-98) 12/15/17 16:22 Consult Discharge Plan - Plan [facility]errals: [facility] [Primary Care Provider[facility] - 12/22/17 9:15 am ([facility] team. Please fax records to [phone])
[2017-12-19] MEDS: Ipratropium/Albuterol Neb 3 ML IH SCH ×2 (04:31→10:58)
[2017-12-19] MEDS: *HR* Heparin 5,000 UNIT/ML VIAL SQ SCH (04:46)
[2017-12-19] MEDS: levETIRAcetam 250 MG TABLET PO SCH (04:46)
[2017-12-19 05:03] LABS: Basophils % 0.5 %; Eosinophils # 0.4 K/mcL (0.0-0.6); Eosinophils % 6.7 %; Hematocrit 33.8 % (37.5-50.1); Hemoglobin 10.6 g/dL (12.9-16.9); Immature Granulocytes % 0.7 % (0-4); Lymphocytes # 1.6 K/mcL (0.6-4.6); Lymphocytes % 29.6 %; Mean Corpuscular HGB Conc 31.4 g/dL (31.6-35.5); Mean Corpuscular Volume 89.4 fL (83.0-100.0); Mean Platelet Volume 10.9 fL (9.4-12.4); Monocytes # 0.4 K/mcL (0.0-1.3); Monocytes % 6.4 %; Neutrophils # 3.1 K/mcL (1.6-8.9); Platelet Count 130 K/mcL (140-400); Red Blood Count 3.78 M/mcL (4.19-5.50); Red Cell Distribution Width 14.7 % (11.5-14.5); Segmented Neutrophils % 56.1 %
[2017-12-19 05:14] LABS: BUN/Creatinine Ratio 15 (6-26); Blood Urea Nitrogen 13 mg/dL (8-23); Calcium 8.8 mg/dL (8.6-10.3); Carbon Dioxide 37 mEq/L (23-29); Chloride 97 mEq/L (98-107); Glucose 180 mg/dL (70-105); Osmolality,Calculated 289 (280-300); Potassium 4.1 mEq/L (3.5-5.1); Sodium 137 mEq/L (136-145); eGFR For African Americans > 60 (> 60); eGFR For Non-African Americans > 60 (> 60)
[2017-12-19] MEDS: *HR* OxyCODONE/APAP 5/325 TABLET PO PRN ×2 (05:36→11:43)
[2017-12-19 07:55] VITALS: BP 139/73
[2017-12-19] MEDS: levoFLOXacin 750 MG TABLET PO SCH (08:16)
[2017-12-19] MEDS: Insulin DETEMIR 100 UNIT/ML X5UNITS SQ SCH (08:17)
[2017-12-19] MEDS: Aspirin 81 MG TAB.CHEW PO SCH (08:17)
[2017-12-19] MEDS: Lactulose Oral Soln 20 GM/30 ML UDC PO SCH (08:18)
[2017-12-19] MEDS: Insulin LISPRO 300 UNITS/3 ML VIAL SQ SCH (08:18)
--- NOTE | 2017-12-19 09:26 | Discharge Summary ---
Date of Encounter: 12/19/17 Time of Encounter: 09:24 - Discharge Diagnosis (1) Acute and chronic respiratory failure with hypercapnia Priority: Primary Status: Acute (2) Acute diastolic (congestive) heart failure Priority: Primary Status: Acute (3) Acute metabolic encephalopathy Priority: Primary Status: Acute (4) Pleural effusion, right Priority: Primary Status: Acute (5) Pneumonia involving right lung Priority: Primary Status: Acute Qualifiers: Pneumonia type: due to unspecified organism Lung location: middle lobe of lung Qualified Code(s): J18.1 - Lobar pneumonia, unspecified organism (6) COPD (chronic obstructive pulmonary disease) Priority: Secondary Status: Acute Qualifiers: COPD type: unspecified COPD Qualified Code(s): J44.9 - Chronic obstructive pulmonary disease, unspecified (7) Seizure disorder Priority: Secondary Status: Acute (8) 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, type II Priority: Secondary Status: Chronic Qualifiers: 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 complication status: with circulatory complication 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 complication detail: with other circulatory complications 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 correction insulin use: with correction use Qualified Code(s) : E11.59 - Type 2 diabetes mellitus with other circulatory complications; Z79.4 - longterm (current) use of insulin; 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 ; 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; 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 (9) Hepatitis C Priority: Secondary Status: Chronic Qualifiers: Viral hepatitis chronicity: chronic Hepatic coma status: without hepatic coma Qualified Code(s): B18.2 - Chronic viral hepatitis C (10) Hypertension Priority: Secondary Status: Chronic Qualifiers: Hypertension type: essential hypertension Qualified Code(s): I10 - Essential (primary) hypertension - Discharge Medications Prescriptions: Furosemide [Lasix] 20 mg PO DAILY PRN #30 tablet PRN Reason: Edema OxyCODONE/APAP 5/325 [Percocet 5/325 MG] 1 each PO Q6H PRN 2 Days #8 tablet PRN Reason: Pain Home Medications: Cholecalciferol (Vitamin D3) [Vitamin D3] 1,000 unit PO BID 03/15/16 [History] Magnesium 400 mg PO BID 03/15/16 [History] Budesonide/Formoterol 80/4.5 [Symbicort 80/4.5] 2 puff IH BIDR #2 inhaler 03/17 [Rx] Cyanocobalamin (Vitamin B-12) [Vitamin B12] 1,000 mcg PO BID 04/03/17 [History] Loratadine [Allergy Relief] 10 mg PO DAILY 04/03/17 [History] Omeprazole 20 mg PO DAILY 04/03/17 [History] Tiotropium [Spiriva] 18 mcg IH DAILY 04/03/17 [History] Albuterol Sulfate [Ventolin Hfa] 1 puff IH Q4H PRN 04/04/17 [History] Lactulose 10 gm PO DAILY PRN 04/04/17 [History] Multivitamin-Min/Iron/FA/Vit K [Multi-Day Plus Minerals Tablet] 1 each PO DAILY 04/04/17 [History] Aspirin 81 mg PO DAILY tab.chew 09/05/17 [Rx] Atorvastatin [Lipitor] 40 mg PO HS tablet 09/05/17 [Rx] Bisacodyl [Dulcolax] 10 mg PO DAILY PRN tablet 09/05/17 [Rx] Ipratropium/Albuterol Neb [Duoneb] 3 ml IH [id number] inhsol 09/05/17 [Rx] Metoprolol [Lopressor] 75 mg PO BID tablet 09/05/17 [Rx] levETIRAcetam [Keppra] 250 mg PO Q12H 10/26/17 [History] Lisinopril [Zestril] 10 mg PO DAILY 12/13/17 [History] Furosemide [Lasix] 20 mg PO DAILY PRN #30 tablet 12/19/17 [Rx] Insulin DETEMIR [Levemir] 25 unit SQ BID [id number] 12/19/17 [Rx] OxyCODONE/APAP 5/325 [Percocet 5/325 MG] 1 each PO Q6H PRN 2 Days #8 tablet 03/31 [Rx] Allergies/Adverse Reactions: 3 Allergy/AdvReac Type Severity Reaction Status Date / Time No Known Allergies Allergy Verified 03/15/16 17:09 Date of admission: 12/14/17 11:16 [facility] Consults: 12/15/17 12:39 Consult to Occupational Therapy [CONS] Routine Comment: Evaluate, develop and implement POC Reason for Consult: therapy/placement needs Consult to Physical Therapy [CONS] Routine Comment: Evaluate, develop and implement POC Reason for Consult: PT eval 12/16/17 10:16 Consult to Flow Specialist [CONS] Routine Reason for SW Consult: rehab placement at the [facility] - Patient Status Disposition: Transfer [facility] Overall status at discharge: patient is progressing back to baseline - Discharge Instructions Instructions: Chronic Obstructive Pulmonary Disease (GEN) Follow Up With: [facility] [Primary Care Provider[facility] - (PATIENT IS GOING TO [facility] REH[facility]) - Diet and Activity Activity: increase activity as tolerated Diet: low salt diet Hospital course: Mr. Thompson is a 62 year old male with a past history of hepatitis C, seizure disorder, obesity, tobacco abuse, type 2 diabetes, oxygen dependent COPD and diastolic congestive heart failure who presented to the [facility] emergency department with chief complaint of shortness of breath. Patient was seen at the [facility] medical facility and was sent over here for further evaluation. Initial workup at the [facility] demonstrateed white count of 6.7, H&H of 10.4/36.5, platelet count of 143K, AST 22, ALT 26, total bilirubin is 0.3, potassium is 3.8, chloride 86, glucose 374, BUN 7, creatinine 0.2 and ammonia was 55. Initial workup on arrival showed chest x-ray with moderate right-sided pleural effusion with superimposed infiltrates. Initial ABG demonstrates pH 7.27, PCO2 122, PO2 123 and HCO3 46 with nasal cannula at 6 L. Patient was placed on BiPAP support. Patient was noted to be excessively somnolent. He is oxygen dependent with 4 L at all times with BiPAP at night and as needed. Blood cultures were drawn and patient received 1 dose of vancomycin and Zosyn in the emergency room. Due to his worsening hypercapnia and hypoxia, the patient was admitted to the personnel training officer service in the ICU. He was diuresed and was put on broad-spectrum antibiotics. He was able to get weaned off continuous BiPAP. Eventually transferred out of ICU to the hospitalist service. We continued him on antibiotics and he received a total of 7 days. He was not discharged on antibiotics. I ended up adding Prn Lasix to be used at the [facility]. He was stable for discharge to the [facility] on 12/19/2017. - Time Spent with Patient Total time spent providing and/or coordinating discharge services: Greater than 30 minutes - Constitutional Vitals: Temp Pulse Resp BP Pulse Ox 98.4 F 66 18 139/73 97 12/19/17 07:51 12/19/17 07:51 12/19/17 07:51 12/19/17 07:51 12/19/17 07:51
--- NOTE | 2017-12-19 09:49 | Physician Discharge Referral ---
ExtendedCare Referral Info Institutional Level of Care: Skilled - Diagnosis (1) Acute and chronic respiratory failure with hypercapnia Priority: Primary Status: Acute (2) Acute diastolic (congestive) heart failure Priority: Primary Status: Acute (3) Acute metabolic encephalopathy Priority: Primary Status: Acute (4) Pleural effusion, right Priority: Primary Status: Acute (5) Pneumonia involving right lung Priority: Primary Status: Acute (6) COPD (chronic obstructive pulmonary disease) Priority: Secondary Status: Acute (7) Seizure disorder Priority: Secondary Status: Acute (8) 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, type II Priority: Secondary Status: Chronic (9) Hepatitis C Priority: Secondary Status: Chronic (10) Hypertension Priority: Secondary Status: Chronic - Transfer Medications Prescriptions: Furosemide [Lasix] 20 mg PO DAILY PRN #30 tablet PRN Reason: Edema OxyCODONE/APAP 5/325 [Percocet 5/325 MG] 1 each PO Q6H PRN 2 Days #8 tablet PRN Reason: Pain Home Medications: Cholecalciferol (Vitamin D3) [Vitamin D3] 1,000 unit PO BID 03/15/16 [History] Magnesium 400 mg PO BID 03/15/16 [History] Budesonide/Formoterol 80/4.5 [Symbicort 80/4.5] 2 puff IH BIDR #2 inhaler 03/17 [Rx] Cyanocobalamin (Vitamin B-12) [Vitamin B12] 1,000 mcg PO BID 04/03/17 [History] Loratadine [Allergy Relief] 10 mg PO DAILY 04/03/17 [History] Omeprazole 20 mg PO DAILY 04/03/17 [History] Tiotropium [Spiriva] 18 mcg IH DAILY 04/03/17 [History] Albuterol Sulfate [Ventolin Hfa] 1 puff IH Q4H PRN 04/04/17 [History] Lactulose 10 gm PO DAILY PRN 04/04/17 [History] Multivitamin-Min/Iron/FA/Vit K [Multi-Day Plus Minerals Tablet] 1 each PO DAILY 04/04/17 [History] Aspirin 81 mg PO DAILY tab.chew 09/05/17 [Rx] Atorvastatin [Lipitor] 40 mg PO HS tablet 09/05/17 [Rx] Bisacodyl [Dulcolax] 10 mg PO DAILY PRN tablet 09/05/17 [Rx] Ipratropium/Albuterol Neb [Duoneb] 3 ml IH [id number] inhsol 09/05/17 [Rx] Metoprolol [Lopressor] 75 mg PO BID tablet 09/05/17 [Rx] levETIRAcetam [Keppra] 250 mg PO Q12H 10/26/17 [History] Lisinopril [Zestril] 10 mg PO DAILY 12/13/17 [History] Furosemide [Lasix] 20 mg PO DAILY PRN #30 tablet 12/19/17 [Rx] Insulin DETEMIR [Levemir] 25 unit SQ BID [id number] 12/19/17 [Rx] OxyCODONE/APAP 5/325 [Percocet 5/325 MG] 1 each PO Q6H PRN 2 Days #8 tablet 03/31 [Rx] Allergies/Adverse Reactions: 3 Allergy/AdvReac Type Severity Reaction Status Date / Time No Known Allergies Allergy Verified 03/15/16 17:09 - Respiratory Orders Smoking Cessation: Smoking cessation has been advised. For more information, call the [place] Tobacco Quit Line at 3-818-RHEB-NOW. - Rehabiliation Orders Rehab Orders: Evaluation for Physical Therapy - Diet Orders Cardiac (diabetic) CERTIFICATION: I certify that the transfer of the above named patient to an Extended Care Facility is necessary for the continuing treatment of the diagnosis listed. The above information is true and accurate reflection of patient's current condition. Confidential - Redisclosure prohibited without a patient's written consent.
[2017-12-19] MEDS: Budesonide/Formoterol 80/4.5 MDI IH SCH (10:58)
== END 2017-12-19 11:48 | DRG 291 ==
LOC: 2ANU 11:08 → EMEROO 11:08 → ICNU 16:49 → 2NNU 12-14 13:13
PROVIDERS: ADMIT Family Medicine; ATTEND Family Medicine

== ENCOUNTER 2018-02-24 15:32 | Inpatient (IN) ==
[2018-02-24] MEDS ORDERED: Isovue-370 500 ML INFUS..BTL IV ONE (16:02)
--- NOTE | 2018-02-24 16:38 | Emergency Department Note ---
Disposition Clinical Impression: Hypercarbia, Elevated d-dimer Altered mental status Qualifiers: Altered mental status type: unspecified Qualified Code(s): R41.82 - Altered mental status, unspecified Acute and chronic respiratory failure Qualifiers: Respiratory failure complication: hypoxia and hypercapnia Qualified Code(s): J96.21 - Acute and chronic respiratory failure with hypoxia Pneumonia Qualifiers: Pneumonia type: due to unspecified organism Laterality: right Lung location: lower lobe of lung Qualified Code(s): J18.1 - Lobar pneumonia, unspecified organism Disposition: Admitted As Inpatient Condition: Serious [facility] Provider[facility] - Forms: ED Satisfaction Letter Time of Disposition: 21:18 General Adult HPI - General Chief complaint: ED Altered Mental Status Stated complaint: AMS Time Seen by Provider: 02/24/18 15:45 Source: EMS Mode of arrival: EMS Limitations: altered mental status Nursing Notes Reviewed: Yes Vital Signs Reviewed: Yes - History of Present Illness HPI Narrative: Patient is a 62-year-old male that presents to the emergency department via EMS from the [place] due to altered mental status and being on BiPAP. Reports state that he has had increased altered mental status and confusion. Reports state that the states that he is supposed to be on BiPAP at home however he wears it intermittently and has not been wearing it appropriately lately. The patient states that he has not been wearing it himself however he does not provide a thorough history due to being somewhat altered. Pain Scale: 0 - Related Data Home Medications Medication Instructions Recorded Confirmed RX: Cholecalciferol (Vitamin D3) 1,000 unit PO BID 03/15/16 02/24/18 [Vitamin D3] RX: Magnesium 400 mg PO BID 03/15/16 02/24/18 RX: Cyanocobalamin (Vitamin B-12) 1,000 mcg PO BID 04/03/17 02/24/18 [Vitamin B12] RX: Loratadine [Allergy Relief] 10 mg PO DAILY 04/03/17 02/24/18 RX: Omeprazole 20 mg PO DAILY 04/03/17 02/24/18 RX: Tiotropium [Spiriva] 18 mcg IH DAILY 04/03/17 02/24/18 RX: Albuterol Sulfate [Ventolin 1 puff IH Q4H PRN 04/04/17 02/24/18 Hfa] RX: Lactulose 10 gm PO DAILY PRN 04/04/17 02/24/18 RX: Multivitamin-Min/Iron/FA/Vit K 1 each PO DAILY 04/04/17 02/24/18 [Multi-Day Plus Minerals Tablet] RX: levETIRAcetam [Keppra] 250 mg PO Q12H 10/26/17 02/24/18 RX: Lisinopril [Zestril] 10 mg PO DAILY 12/13/17 02/24/18 Oxycodone HCl [Oxaydo] 5 mg PO Q6H 02/24/18 02/24/18 Potassium Gluconate [Potassium] 99 mg PO DAILY 02/24/18 02/24/18 RX: Memantine HCl 10 mg PO BID 02/24/18 02/24/18 Zinc Sulfate [Zinc-15] 66 mg PO BID 02/24/18 02/24/18 Previous Rx's Medication Instructions Recorded RX: Budesonide/Formoterol 80/4.5 2 puff IH BIDR #2 inhaler 03/17/16 [Symbicort 80/4.5] RX: Aspirin 81 mg PO DAILY tab.chew 09/05/17 RX: Atorvastatin [Lipitor] 40 mg PO HS tablet 09/05/17 RX: Bisacodyl [Dulcolax] 10 mg PO DAILY PRN tablet 09/05/17 RX: Metoprolol [Lopressor] 75 mg PO BID tablet 09/05/17 Furosemide [Lasix] 20 mg PO DAILY PRN #30 tablet 12/19/17 RX: Insulin DETEMIR [Levemir] 25 unit SQ BID [id number] 12/19/17 Allergies Allergy/AdvReac Type Severity Reaction Status Date / Time No Known Allergies Allergy Verified 03/15/16 17:09 All systems ED: reviewed and negative except as stated. Limitations: ROS unobtainable due to patients medical condition Cardiovascular: Denies: chest pain Respiratory: Reports: dyspnea Past Medical History - Past Medical History Medical history: Reports: cirrhosis, CHF, COPD, coronary artery disease, diabetes, hepatitis, hyperlipidemia, hypertension, liver disease, myocardial infarction, other Surgical history: Reports: cholecystectomy, orthopedic, other (ankle), other Psychiatric history: Reports: anxiety, depression - Social History Smoking Status: Former smoker Smokeless Tobacco Status: No Alcohol use: Reports: none Drug use: Reports: none Physical Exam - General Limitations: no limitations General appearance: alert, in distress - Head Head exam: atraumatic, normocephalic - Eye Eye exam: Present: normal appearance, EOMI - Neck Neck exam: Present: normal inspection, full ROM, trachea midline - Respiratory Respiratory exam: Present: normal lung sounds bilaterally. Absent: respiratory distress, wheezes - Cardiovascular Cardiovascular exam: Present: regular rate, normal rhythm, normal heart sounds, +S1, +S2 - Abdominal Exam Abdominal exam: Present: soft, Non-Tender, normal bowel sounds - Neurological Exam Neurological exam: Present: alert, CN II-XII intact. Absent: oriented X3 ( Patient is oriented to place and person but not to time.) - Expanded Neurological Exam Patient oriented to: Present: person, place. Absent: time Speech: Present: fluid speech Cranial nerves: EOM function (II, III, IV, ): Normal, facial sensation (V): Normal, facial palsy (VII): Normal, gag reflex (IX): Normal, spinal accessory function (XI): Normal, tongue deviation (XII): Normal Motor strength - LUE: 5/5 Motor strength - RUE: 5/5 Motor strength - LLE: 5/5 Motor strength - RLE: 5/5 Sensory exam upper extremity: light touch: Normal Sensory exam lower extremity: light touch: Normal Coma Scale Eye Opening: Spontaneous Coma Scale Motor Response: Obeys Commands Coma Scale Verbal Response: Confused Coma Scale Total: 14 - Psychiatric Psychiatric exam: Present: other (Patient has altered mental status.) - Skin Skin exam: Present: warm, dry, intact Course Vital Signs Temperature 98.2 F 02/24/18 15:37 Pulse Rate 67 02/24/18 15:37 Respiratory Rate 16 02/24/18 15:37 Blood Pressure 131/84 02/24/18 15:37 O2 Sat by Pulse Oximetry 60 02/24/18 15:37 Temperature 98.2 F 02/24/18 15:37 Pulse Rate 66 02/24/18 20:35 Respiratory Rate 20 02/24/18 20:35 Blood Pressure 140/70 02/24/18 20:35 O2 Sat by Pulse Oximetry 91 02/24/18 20:35 Oxygen Delivery Oxygen Delivery Bipap Medical Decision Making - MDM Narrative Medical decision making narrative: Due [facility] and being on [facility] and having muscle laboratory tests are be completed prior to arrival we will obtain a venous blood gas, CTA of the chest to rule out possible pulmonary emboli and an EKG. The patient had 2 VBG's that were obtained the most recent showed a pH of 7.41 with a PCO2 of 70. This has improved from the outside facilities ABG. The patient is still requiring BiPAP. The patient had a negative CT scan for pulmonary embolus however there was possible evidence of pleural effusion and pneumonia. Based on the patient being hypercarbic, hypoxemic and requiring increased oxygen demand I feel this patient has acute on chronic respiratory failure likely secondary to pneumonia. We will give this patient a breathing treatment, steroids as well as start the patient on antibiotics here in the emergency department. The patient will need to be admitted to the hospital for further evaluation and management. I called and spoke the hospitalist and they have accepted the patient to their service. The patient be admitted to the hospital at this time for further evaluation and management. - Medical Records Medical records reviewed: Yes I reviewed the patient's medical records. - Lab Data Lab results reviewed: Yes I reviewed the patient's lab results. Lab Results 02/24/18 02/24/18 Range/Units 16:58 18:40 VBG pH 7.52 H 7.41 (7.32-7.42) pH Units VBG pCO2 53 H 70 H* (41-51) mmHg VBG pO2 151 H 195 H (25-50) mmHg VBG HCO3 44 H 44 H (21-27) mEq/L Person Notif of Alonso POSADA - Radiology Data Radiology results reviewed: Yes I reviewed the patient's radiology results. Chest CTA 02/24/18 16:02 IMPRESSION: 1. Small right pleural effusion, probably partially loculated. 2. Collapsing consolidation within the right lower lung, at least partially secondary to the pleural fluid, but also secondary to the elevation of the right hemidiaphragm. In addition to atelectasis, pneumonia and edema are considered. 3. Mildly enlarged mediastinal lymph nodes, probably reactive. These appear mildly increased in size when compared to the previous examination. Continued surveillance of those is recommended. 4. Cirrhotic morphology of the liver. 5. Overall, suboptimal contrast bolus within the pulmonary arteries. No central or segmental pulmonary embolism is detected. D/ / Jameson Gonzalez MD / Jameson Gonzalez MD Interpreting Provider: Jameson Gonzalez MD - EKG Data EKG #1 EKG attestation: Yes I reviewed and interpreted this EKG. EKG results narrative: Patient's EKG shows a sinus rhythm at a rate of 62 bpm, SD interval 135, QRS duration of 95, QTC of 400 with a normal axis. There are some T-wave inversions and depressions in V1, V2, V3 and V4. This is unchanged from EKG performed at outside facility earlier today at 1227. However when looking back at an EKG from 12/13/17 these inversions in V2, V3 and V4 do seem to be new.
[2018-02-24] MEDS ORDERED: Ipratropium/Albuterol Neb 3 ML IH ONE (16:53)
[2018-02-24 17:00] LABS: VBG HCO3 44 mEq/L (21-27); VBG PCO2 53 mmHg (41-51); VBG PH 7.52 pH Units (7.32-7.42); VBG PO2 151 mmHg (25-50)
[2018-02-24 18:53] LABS: VBG HCO3 44 mEq/L (21-27); VBG PCO2 70 mmHg (41-51); VBG PH 7.41 pH Units (7.32-7.42); VBG PO2 195 mmHg (25-50)
[2018-02-24] MEDS ORDERED: methylPREDNISolone 125 MG/2 ML VIAL IVP ONE (19:54)
[2018-02-24] MEDS ORDERED: Levofloxacin 750 MG/150 ML 750 MG/150 ML BAG IVPB ONE (19:54)
--- NOTE | 2018-02-24 22:27 | Emergency Department Note ---
Disposition Clinical Impression: Hypercarbia, Elevated d-dimer Altered mental status Qualifiers: Altered mental status type: unspecified Qualified Code(s): R41.82 - Altered mental status, unspecified Acute and chronic respiratory failure Qualifiers: Respiratory failure complication: hypoxia and hypercapnia Qualified Code(s): J96.21 - Acute and chronic respiratory failure with hypoxia Pneumonia Qualifiers: Pneumonia type: due to unspecified organism Laterality: right Lung location: lower lobe of lung Qualified Code(s): J18.1 - Lobar pneumonia, unspecified organism Disposition: Admitted As Inpatient Condition: Serious General Adult HPI - General Chief complaint: ED Altered Mental Status Stated complaint: AMS Time Seen by Provider: 02/24/18 15:45 Source: EMS Mode of arrival: EMS Limitations: no limitations - History of Present Illness Pain Scale: 0 - Related Data Home Medications Medication Instructions Recorded Confirmed Cholecalciferol (Vitamin D3) 1,000 unit PO BID 03/15/16 02/24/18 [Vitamin D3] Magnesium 400 mg PO BID 03/15/16 02/24/18 Cyanocobalamin (Vitamin B-12) 1,000 mcg PO BID 04/03/17 02/24/18 [Vitamin B12] Loratadine [Allergy Relief] 10 mg PO DAILY 04/03/17 02/24/18 Omeprazole 20 mg PO DAILY 04/03/17 02/24/18 Tiotropium [Spiriva] 18 mcg IH DAILY 04/03/17 02/24/18 Albuterol Sulfate [Ventolin Hfa] 1 puff IH Q4H PRN 04/04/17 02/24/18 Lactulose 10 gm PO DAILY PRN 04/04/17 02/24/18 Multivitamin-Min/Iron/FA/Vit K 1 each PO DAILY 04/04/17 02/24/18 [Multi-Day Plus Minerals Tablet] levETIRAcetam [Keppra] 250 mg PO Q12H 10/26/17 02/24/18 Lisinopril [Zestril] 10 mg PO DAILY 12/13/17 02/24/18 Memantine HCl 10 mg PO BID 02/24/18 02/24/18 Oxycodone HCl [Oxaydo] 5 mg PO Q6H 02/24/18 02/24/18 Potassium Gluconate [Potassium] 99 mg PO DAILY 02/24/18 02/24/18 Zinc Sulfate [Zinc-15] 66 mg PO BID 02/24/18 02/24/18 Previous Rx's Medication Instructions Recorded Budesonide/Formoterol 80/4.5 2 puff IH BIDR #2 inhaler 03/17/16 [Symbicort 80/4.5] Aspirin 81 mg PO DAILY tab.chew 09/05/17 Atorvastatin [Lipitor] 40 mg PO HS tablet 09/05/17 Bisacodyl [Dulcolax] 10 mg PO DAILY PRN tablet 09/05/17 Metoprolol [Lopressor] 75 mg PO BID tablet 09/05/17 Furosemide [Lasix] 20 mg PO DAILY PRN #30 tablet 12/19/17 Insulin DETEMIR [Levemir] 25 unit SQ BID [id number] 12/19/17 Allergies Allergy/AdvReac Type Severity Reaction Status Date / Time No Known Allergies Allergy Verified 03/15/16 17:09 Cardiovascular: Denies: chest pain Respiratory: Reports: dyspnea Past Medical History - Past Medical History Medical history: Reports: cirrhosis, CHF, COPD, coronary artery disease, diabetes, hepatitis, hyperlipidemia, hypertension, liver disease, myocardial infarction, other Surgical history: Reports: cholecystectomy, orthopedic, other (ankle), other Psychiatric history: Reports: anxiety, depression - Social History Smoking Status: Former smoker Smokeless Tobacco Status: No Alcohol use: Reports: none Drug use: Reports: none Physical Exam - General Limitations: no limitations General appearance: alert, in distress Course Vital Signs Temperature 98.2 F 02/24/18 15:37 Pulse Rate 67 02/24/18 15:37 Respiratory Rate 16 02/24/18 15:37 Blood Pressure 131/84 02/24/18 15:37 O2 Sat by Pulse Oximetry 60 02/24/18 15:37 Temperature 98.2 F 02/24/18 15:37 Pulse Rate 66 02/24/18 20:35 Respiratory Rate 20 02/24/18 20:35 Blood Pressure 140/70 02/24/18 20:35 O2 Sat by Pulse Oximetry 91 02/24/18 20:35 Oxygen Delivery Oxygen Delivery Bipap Medical Decision Making - Lab Data Lab Results 02/24/18 02/24/18 Range/Units 16:58 18:40 VBG pH 7.52 H 7.41 (7.32-7.42) pH Units VBG pCO2 53 H 70 H* (41-51) mmHg VBG pO2 151 H 195 H (25-50) mmHg VBG HCO3 44 H 44 H (21-27) mEq/L Person Notif of Alonso POSADA Attestation Statement - Attestation Attestation: I examined this patient and my medical decision-making was reviewed with the Resident Physician. I agree with the documented findings, disposition and treatment plan as described except to the extent set forth below. Acute on chronic hypoxemic hypercarbic respiratory failure. Significantly improved with BiPAP. Most likely etiology is COPD exacerbation, PE workup negative. There is a possibility for pneumonia based on the CT scan. Hemodynamically stable while in the emergency department. CO2 remains elevated , pH is normalized, indicating a return to baseline. Admitted for further evaluation and treatment.
[2018-02-25] MEDS ORDERED: Dextrose Gel 15 GM/37.5 ML TUBE PO PRN ×2 (00:36)
[2018-02-25] MEDS ORDERED: Naloxone 0.4 MG/ML INJ IVP PRN (00:36)
[2018-02-25] MEDS ORDERED: *HR* Dextrose 50 % in Water (Syg) 50 ML SYRINGE IVP PRN (00:36)
[2018-02-25] MEDS ORDERED: D5% in Water 1,000 ML IVC PRN (00:36)
[2018-02-25] MEDS ORDERED: Albuterol 2.5 MG/3 ML NEBULIZER IH PRN (00:40)
[2018-02-25 01:20] LABS: Hematocrit 34.5 % (37.5-50.1); Hemoglobin 10.4 g/dL (12.9-16.9); Immature Granulocytes % 0.4 % (0-4); Lymphocytes # 0.4 K/mcL (0.6-4.6); Lymphocytes % 8.3 %; Mean Corpuscular HGB Conc 30.1 g/dL (31.6-35.5); Mean Corpuscular Hemoglobin 28.8 pg (28.0-33.3); Mean Corpuscular Volume 95.6 fL (83.0-100.0); Mean Platelet Volume 10.2 fL (9.4-12.4); Monocytes % 0.2 %; Neutrophils # 4.9 K/mcL (1.6-8.9); Platelet Count 153 K/mcL (140-400); Red Blood Count 3.61 M/mcL (4.19-5.50); Red Cell Distribution Width 14.6 % (11.5-14.5); Segmented Neutrophils % 91.1 %
[2018-02-25 01:25] LABS: INR 1.3; Prothrombin Time 13.7 Seconds (9.4-12.1)
--- NOTE | 2018-02-25 01:38 | Internal Med History&Physical ---
Date of Encounter: 02/25/18 Time of Encounter: 00:20 Internal Medicine - H&P: HPI Chief complaint: altered mental status; respiratory failure Admitted From: Emergency Dept Plans for Post Hospital Care: Home History of present illness: Mr. Thompson is a 62 year old male who was sent to our ER today from the [place] urgent care. He presented there earlier with altered mental status and confusion and difficulty breathing. He was found to have evidence of hypercapnia on ABG. He was sent to our ER for evaluation and admission. Patient apparently had extensive laboratory testing done at the [place], but those records are not available and were in lost the ER somewhere. There were no repeat labs here except for a VBG. Patient was placed on BiPAP and had a CT angiogram performed to rule out PE. There is no PE, but there is concern for pneumonia. Patient was therefore admitted to hospitalist service for acute hypercapnic respiratory failure and pneumonia. Upon my assessment of the patient, patient is on BiPAP and now alert and talking somewhat. He is oriented to self only. He is unable to provide any history. He thinks he is at the [facility]. He does not know how he got here. He does not recall the events of earlier today. He does confirm that he wears BiPAP at home and wears oxygen at home. No further history can be obtained from patient. [facility] searched [facility] on [facility] floor and neither I nor the nurse could find such records. We called the ER looking for records and they are not available and presumably lost. I cannot find any EKG whatsoever. As such, I will order some stat labs and continue treatment as indicated. Of note, the only labs performed in our ER were VBG 2. His pH went from 7.52- 7.41. In my opinion, the rest of VBG values are unreliable and not helpful. He also had a CTA as noted above. Past Med Surg Social Fam HX - Past Medical History Source: old records reviewed, nursing notes reviewed Medical history: cirrhosis, CHF, COPD, coronary artery disease, diabetes, hepatitis, hyperlipidemia, hypertension, liver disease, myocardial infarction, other Psychiatric history: anxiety, depression - Past Surgical History Surgical History: cholecystectomy, orthopedic, other - Social History Smoking Status: Former smoker Smokeless Tobacco Status: No Alcohol use: none Drug use: none - Family History Mother Living Status: Still Living Hx Family Endocrine Disorder: Yes (DM) Father Living Status: Still Living Hx Family Cardiac Disorders: Yes ([place], CABG) Hx Family Endocrine Disorder: Yes (DM) Internal Medicine - H&P: Meds Cholecalciferol (Vitamin D3) [Vitamin D3] 1,000 unit PO BID 03/15/16 [History] Magnesium 400 mg PO BID 03/15/16 [History] Budesonide/Formoterol 80/4.5 [Symbicort 80/4.5] 2 puff IH BIDR #2 inhaler 03/17 [Rx] Cyanocobalamin (Vitamin B-12) [Vitamin B12] 1,000 mcg PO BID 04/03/17 [History] Loratadine [Allergy Relief] 10 mg PO DAILY 04/03/17 [History] Omeprazole 20 mg PO DAILY 04/03/17 [History] Tiotropium [Spiriva] 18 mcg IH DAILY 04/03/17 [History] Albuterol Sulfate [Ventolin Hfa] 1 puff IH Q4H PRN 04/04/17 [History] Lactulose 10 gm PO DAILY PRN 04/04/17 [History] Multivitamin-Min/Iron/FA/Vit K [Multi-Day Plus Minerals Tablet] 1 each PO DAILY 04/04/17 [History] Aspirin 81 mg PO DAILY tab.chew 09/05/17 [Rx] Atorvastatin [Lipitor] 40 mg PO HS tablet 09/05/17 [Rx] Bisacodyl [Dulcolax] 10 mg PO DAILY PRN tablet 09/05/17 [Rx] Metoprolol [Lopressor] 75 mg PO BID tablet 09/05/17 [Rx] levETIRAcetam [Keppra] 250 mg PO Q12H 10/26/17 [History] Lisinopril [Zestril] 10 mg PO DAILY 12/13/17 [History] Furosemide [Lasix] 20 mg PO DAILY PRN #30 tablet 12/19/17 [Rx] Insulin DETEMIR [Levemir] 25 unit SQ BID [id number] 12/19/17 [Rx] Memantine HCl 10 mg PO BID 02/24/18 [History] Oxycodone HCl [Oxaydo] 5 mg PO Q6H 02/24/18 [History] Potassium Gluconate [Potassium] 99 mg PO DAILY 02/24/18 [History] Zinc Sulfate [Zinc-15] 66 mg PO BID 02/24/18 [History] 3 Allergy/AdvReac Type Severity Reaction Status Date / Time No Known Allergies Allergy Verified 03/15/16 17:09 ROS unobtainable: due to mental status - Constitutional Vitals: Temp Pulse Resp BP Pulse Ox 98.7 F 71 22 138/62 96 02/24/18 22:56 02/24/18 22:56 02/24/18 22:56 02/24/18 22:56 02/24/18 22:56 General appearance: Present: cooperative, A&O X 1, disheveled, mild distress ( respiratory ) - Head Head exam: Present: atraumatic, normal inspection - Eye Eye exam: Present: EOMI, normal appearance, PERRL. Absent: scleral icterus Pupils: Present: normal accommodation - ENT ENT exam: Present: mucous membranes dry, normal exam Additional comments: BiPap mask in place - Neck Neck exam general surgery: Present: full ROM, supple. Absent: lymphadenopathy, tenderness, nuchal rigidity, thyromegaly - Respiratory Respiratory exam: Present: accessory muscle use, prolonged expiratory phase, rales, respiratory distress, wheezes. Absent: chest wall tenderness - Cardiovascular Cardiovascular exam: Present: distant heart sounds, +S1, +S2, tachycardia. Absent: diastolic murmur, JVD, systolic murmur - GI/Abdominal GI/Abdominal exam: Present: soft, no peritoneal signs. Absent: guarding, hepatomegaly, mass, rebound, splenomegaly, tenderness - Extremities Exam Extremities exam: Present: full ROM, normal capillary refill, warm, radial pulses palpable and symmetrical. Absent: calf tenderness, joint swelling, tenderness - Back Exam Back exam: Absent: CVA tenderness (L), CVA tenderness (R) - Neurological Exam Neurological exam: Present: alert, oriented X3, no focal deficits, strengths equal and symetr throughout - Psychiatric Psychiatric exam: Present: normal affect, normal mood - Skin Skin exam: Present: dry, warm. Absent: rash Internal Med - H&P Results - Labs CBC & Chem 7: 02/25/18 00:54 Labs: Short CBC 02/25/18 Range/Units 00:54 WBC 5.3 (4.3-11.1) K/mcL Hgb 10.4 L (12.9-16.9) g/dL Hct 34.5 L (37.5-50.1) % Plt Count 153 (140-400) K/mcL Neutrophils # 4.9 (1.6-8.9) K/mcL - Diagnostic Studies CT scan - chest Status: image reviewed by me (RLL infiltrate supected) - Assessment and plan (1) Acute and chronic respiratory failure with hypercapnia Current Visit: Yes Status: Acute Assessment and plan: 1. Will continue BiPap, aerosols, Solu-medrol, oxygen, and supportive measures. 2. Will order ABG later this morning. 3. Monitor clinically and on telemetry. 4. Will order STAT labs including CBC, chem-7, coags, blood cultures -- as I have no access to any labs from [place] and no labs (except VBG) were done in our ER. (2) Pneumonia Current Visit: Yes Status: Acute Assessment and plan: 1. Will obtain blood cultures, sputum if able to collect, and continue antibiotics. 2. Bipap and supportive measures as above. Qualifiers: Pneumonia type: due to unspecified organism Laterality: right Lung location: lower lobe of lung Qualified Code(s): J18.1 - Lobar pneumonia, unspecified organism (3) IDDM (insulin dependent diabetes mellitus) Current Visit: Yes Status: Chronic Assessment and plan: 1. Will place on lower dose (npo currently) Levemir and SSI. 2. Monitor glucose and adjust dose accordingly. (4) Acute metabolic encephalopathy Current Visit: No Status: Acute Assessment and plan: 1. Likely due to hypercapnia. 2. Monitor clinically and hold sedating meds at this time. 3. Await family input to assess baseline mental state. (5) DVT prophylaxis Current Visit: Yes Status: Acute Assessment and plan: 1. Heparin SQ.
[2018-02-25 01:41] LABS: Activated Partial Thrombo Time 29.3 Seconds (26.0-36.0)
[2018-02-25] MEDS: 0.9 % Sodium Chloride 1,000 ML IVC SCH ×2 (01:45→11:45)
[2018-02-25] MEDS: levETIRAcetam 250 MG TABLET PO SCH ×2 (01:45→15:38)
[2018-02-25 01:52] LABS: Alanine Aminotransferase 11 Units/L (7-52); Albumin 3.3 g/dL (3.5-5.7); Albumin/Globulin Ratio 1.1 (1.1-2.2); Alkaline Phosphatase 62 Units/L (34-104); Aspartate Amino Transferase 17 Units/L (13-39); BUN/Creatinine Ratio 19 (6-26); Bilirubin,Total 0.6 mg/dL (0.3-1.0); Blood Urea Nitrogen 15 mg/dL (8-23); Calcium 8.7 mg/dL (8.6-10.3); Carbon Dioxide 42 mEq/L (23-29); Chloride 92 mEq/L (98-107); Globulin 3.1 g/dL (2.4-3.5); Glucose 243 mg/dL (70-105); Magnesium 1.5 mg/dL (1.6-2.6); Osmolality,Calculated 299 (280-300); Potassium 4.1 mEq/L (3.5-5.1); Sodium 140 mEq/L (136-145); Total Protein 6.4 g/dL (6.4-8.9); eGFR For African Americans > 60 (> 60); eGFR For Non-African Americans > 60 (> 60)
[2018-02-25] MEDS: Acetaminophen 325 MG TABLET PO PRN ×2 (02:28→14:03)
[2018-02-25] MEDS: Ipratropium/Albuterol Neb 3 ML IH SCH ×6 (04:18→23:49)
[2018-02-25] MEDS: *HR* Heparin 5,000 UNIT/ML VIAL SQ SCH ×2 (06:12→18:30)
[2018-02-25] MEDS: Insulin LISPRO 300 UNITS/3 ML VIAL SQ SCH ×3 (06:12→18:28)
[2018-02-25] MEDS: Budesonide/Formoterol 80/4.5 MDI IH SCH ×2 (08:22→20:05)
[2018-02-25] MEDS: Levofloxacin 750 MG/150 ML 750 MG/150 ML BAG IVPB SCH (09:56)
[2018-02-25] MEDS: methylPREDNISolone 125 MG/2 ML VIAL IVP SCH ×2 (09:56→15:40)
[2018-02-25] MEDS: Insulin DETEMIR 100 UNIT/ML X5UNITS SQ SCH ×2 (09:56→19:31)
[2018-02-25] MEDS: Aspirin 81 MG TAB.CHEW PO SCH (09:57)
[2018-02-25] MEDS: Loratadine 10 MG TABLET PO SCH (09:57)
[2018-02-25] MEDS: Magnesium Oxide 400 MG TABLET PO SCH ×2 (09:57→19:30)
[2018-02-25] MEDS: Multivit/Ca/Min/Fe/FA 1 TAB TABLET PO SCH (09:57)
[2018-02-25 10:10] LABS: ABG Base Excess 18 mEq/L (-2 to 3); ABG HCO3 45 mEq/L (21-27); ABG Oxygen Saturation 91 % (95-98); ABG PCO2 64 mmHg (35-45); ABG PH 7.46 pH Units (7.32-7.45); ABG PO2 61 mmHg (85-104); ABG TCO2 47 mEq/L (20-26)
--- NOTE | 2018-02-25 20:05 | Event Note ---
Date of Encounter: 02/25/18 Time of Encounter: 11:00 Patient seen and evaluate by nocturnalist earlier this morning and also by myself 1. Acute hypoxic/hypercapnic respiratory failure Continue BiPAP; suspect secondary to pneumonia 2. Pneumonia Continue IV Levaquin
[2018-02-26] MEDS ORDERED: Haloperidol Lactate 5 MG/ML VIAL ONE (00:23)
[2018-02-26] MEDS ORDERED: Haloperidol Lactate 5 MG/ML VIAL IVP STA ×2 (00:25→00:30)
[2018-02-26] MEDS ORDERED: *HR* LORazepam 2 MG/ML VIAL IM STA (01:20)
[2018-02-26] MEDS: methylPREDNISolone 125 MG/2 ML VIAL IVP SCH ×4 (01:29→23:45)
[2018-02-26] MEDS: levETIRAcetam 250 MG TABLET PO SCH ×3 (01:33→23:44)
[2018-02-26] MEDS ORDERED: *HR* LORazepam 2 MG/ML VIAL IVP ONE ×3 (01:35→14:49)
[2018-02-26] MEDS: Ipratropium/Albuterol Neb 3 ML IH SCH ×6 (04:34→23:34)
[2018-02-26] MEDS: Insulin LISPRO 300 UNITS/3 ML VIAL SQ SCH ×4 (04:45→16:56)
[2018-02-26] MEDS: *HR* Heparin 5,000 UNIT/ML VIAL SQ SCH ×2 (04:49→16:48)
[2018-02-26] MEDS: Magnesium Oxide 400 MG TABLET PO SCH ×2 (08:21→20:06)
[2018-02-26] MEDS: Loratadine 10 MG TABLET PO SCH (08:21)
[2018-02-26] MEDS: Aspirin 81 MG TAB.CHEW PO SCH (08:21)
[2018-02-26] MEDS: Multivit/Ca/Min/Fe/FA 1 TAB TABLET PO SCH (08:22)
[2018-02-26] MEDS: Insulin DETEMIR 100 UNIT/ML X5UNITS SQ SCH ×2 (08:49→20:06)
[2018-02-26] MEDS: Levofloxacin 750 MG/150 ML 750 MG/150 ML BAG IVPB SCH (08:49)
[2018-02-26 10:29] LABS: Hematocrit 34.8 % (37.5-50.1); Hemoglobin 10.5 g/dL (12.9-16.9); Immature Granulocytes % 0.2 % (0-4); Lymphocytes # 0.5 K/mcL (0.6-4.6); Lymphocytes % 9.7 %; Mean Corpuscular HGB Conc 30.2 g/dL (31.6-35.5); Mean Corpuscular Hemoglobin 28.3 pg (28.0-33.3); Mean Corpuscular Volume 93.8 fL (83.0-100.0); Mean Platelet Volume 10.3 fL (9.4-12.4); Monocytes # 0.2 K/mcL (0.0-1.3); Monocytes % 3.7 %; Neutrophils # 4.7 K/mcL (1.6-8.9); Platelet Count 154 K/mcL (140-400); Red Blood Count 3.71 M/mcL (4.19-5.50); Segmented Neutrophils % 86.4 %
--- NOTE | 2018-02-26 10:45 | Pulmonology Consult Note ---
Date of Encounter: 02/26/18 Time of Encounter: 09:50 Assessment and Plan (1) Acute and chronic respiratory failure with hypercapnia Current Visit: Yes Status: Acute Patient with acute on chronic respiratory failure which is multifactorial from his underlying COPD as well as he has elevated hemidiaphragm with problem with ventilation and atelectasis and also history of obstructive sleep apnea as well as obesity. I feel patient's baseline PCO2 must be higher from his last ABG which shows evidence of rebound metabolic alkalosis. Not to use noninvasive ventilation at this time is recommended for his PCO2 to be elevated. He can use his BiPAP at night with history of COPD and obstructive sleep apnea. He can be monitored clinically rather than continue checking ABGs. Thank you for consultation we will continue follow-up. (2) Acute exacerbation of chronic obstructive airways disease Current Visit: No Status: Acute Continue bronchodilators as well as systemic steroid which can be tapered due to mental status change once clinically improve. Empiric antibiotics is reasonable. (3) Seizure disorder Current Visit: No Status: Chronic It is important to keep pH in the acid side since alkalosis would be more dangerous (4) Elevated hemidiaphragm Current Visit: Yes Status: Chronic Patient has history of trauma which may be related to that then as outpatient can be checked for diaphragm paralysis and treatment best would be noninvasive ventilation. (5) Tobacco abuse Current Visit: No Status: Chronic Patient stated he will quit smoking. History of Present Illness Consult date: 02/26/18 Requesting physician: Ulysses Gill Reason for consult: dyspnea, COPD Chief complaint: Shortness of breath and altered mental status History of present illness: This is a 62-year-old male who was transferred from [place] urgent care due to mental status change and confusion. Patient is poor historian but he is alert and oriented at this time. Patient stated he has long history of smoking tobacco and he is trying to quit. The patient is on home oxygen and he does not remember his inhalers. Patient also has history of obstructive sleep apnea and he said he use his machine sometimes. Patient also has history of head trauma according to him long time ago. Pulmonary was consulted due to his abnormal ABG. Patient was being placed on BiPAP he denies any significant productive cough but he has some wheezing and white sputum and he denies any hemoptysis. Past Med Surg Social Fam HX - Past Medical History Medical history: cirrhosis, CHF, COPD, coronary artery disease, diabetes, hepatitis, hyperlipidemia, hypertension, liver disease, myocardial infarction, other Psychiatric history: anxiety, depression - Past Surgical History Surgical History: cholecystectomy, orthopedic, other - Social History Smoking Status: Former smoker Smokeless Tobacco Status: No Alcohol use: none Drug use: none - Family History Mother Living Status: Still Living Hx Family Endocrine Disorder: Yes (DM) Father Living Status: Still Living Hx Family Cardiac Disorders: Yes (CO, CABG) Hx Family Endocrine Disorder: Yes (DM) Medications and Allergies Cholecalciferol (Vitamin D3) [Vitamin D3] 1,000 unit PO BID 03/15/16 [History] Magnesium 400 mg PO BID 03/15/16 [History] Budesonide/Formoterol 80/4.5 [Symbicort 80/4.5] 2 puff IH BIDR #2 inhaler 03/17 [Rx] Cyanocobalamin (Vitamin B-12) [Vitamin B12] 1,000 mcg PO BID 04/03/17 [History] Loratadine [Allergy Relief] 10 mg PO DAILY 04/03/17 [History] Omeprazole 20 mg PO DAILY 04/03/17 [History] Tiotropium [Spiriva] 18 mcg IH DAILY 04/03/17 [History] Albuterol Sulfate [Ventolin Hfa] 1 puff IH Q4H PRN 04/04/17 [History] Lactulose 10 gm PO DAILY PRN 04/04/17 [History] Multivitamin-Min/Iron/FA/Vit K [Multi-Day Plus Minerals Tablet] 1 each PO DAILY 04/04/17 [History] Aspirin 81 mg PO DAILY tab.chew 09/05/17 [Rx] Atorvastatin [Lipitor] 40 mg PO HS tablet 09/05/17 [Rx] Bisacodyl [Dulcolax] 10 mg PO DAILY PRN tablet 09/05/17 [Rx] Metoprolol [Lopressor] 75 mg PO BID tablet 09/05/17 [Rx] levETIRAcetam [Keppra] 250 mg PO Q12H 10/26/17 [History] Lisinopril [Zestril] 10 mg PO DAILY 12/13/17 [History] Furosemide [Lasix] 20 mg PO DAILY PRN #30 tablet 12/19/17 [Rx] Insulin DETEMIR [Levemir] 25 unit SQ BID [id number] 12/19/17 [Rx] Memantine HCl 10 mg PO BID 02/24/18 [History] Oxycodone HCl [Oxaydo] 5 mg PO Q6H 02/24/18 [History] Potassium Gluconate [Potassium] 99 mg PO DAILY 02/24/18 [History] Zinc Sulfate [Zinc-15] 66 mg PO BID 02/24/18 [History] 3 Allergy/AdvReac Type Severity Reaction Status Date / Time No Known Allergies Allergy Verified 03/15/16 17:09 All Systems: The remainder of the systems were reviewed and are negative Physical Examination Vital Signs: Vital Signs, Last 4 Hours Temp Pulse Resp BP Pulse Ox 02/26/18 08:30 98.2 F 75 18 151/84 97 General appearance: no acute distress Eyes: nonicteric ENT: oropharynx moist Mallampati (class): 4 Effort: normal Auscultation: bilateral: diminished breath sounds Percussion: bilateral: not dull Cardiovascular: regular rate and rhythm Gastrointestinal: normoactive bowel sounds, non-distended Extremities: no cyanosis non-focal exam mood appropriate Results - Laboratory Findings CBC and BMP: 02/26/18 09:46 02/25/18 00:54 ABG ABG pH 7.46 pH Units (7.32-7.45) H 02/25/18 10:08 ABG pCO2 64 mmHg (35-45) H 02/25/18 10:08 ABG pO2 61 mmHg (85-104) L 02/25/18 10:08 ABG O2 Saturation 91 % (95-98) L 02/25/18 10:08 PT/INR, D-dimer PT 13.7 Seconds (9.4-12.1) H 02/25/18 00:54 Abnormal lab findings: Abnormal lab results RBC 3.71 M/mcL (4.19-5.50) L 02/26/18 09:46 Hgb 10.5 g/dL (12.9-16.9) L 02/26/18 09:46 Hct 34.8 % (37.5-50.1) L 02/26/18 09:46 MCHC 30.2 g/dL (31.6-35.5) L 02/26/18 09:46 RDW 15.0 % (11.5-14.5) H 02/26/18 09:46 Lymphocytes # 0.5 K/mcL (0.6-4.6) L 02/26/18 09:46 PT 13.7 Seconds (9.4-12.1) H 02/25/18 00:54 ABG pH 7.46 pH Units (7.32-7.45) H 02/25/18 10:08 ABG pCO2 64 mmHg (35-45) H 02/25/18 10:08 ABG pO2 61 mmHg (85-104) L 02/25/18 10:08 ABG HCO3 45 mEq/L (21-27) H 02/25/18 10:08 ABG Total CO2 47 mEq/L (20-26) H 02/25/18 10:08 ABG O2 Saturation 91 % (95-98) L 02/25/18 10:08 ABG Base Excess 18 mEq/L (-2 to 3) H 02/25/18 10:08 VBG pCO2 70 mmHg (41-51) H* 02/24/18 18:40 VBG pO2 195 mmHg (25-50) H 02/24/18 18:40 VBG HCO3 44 mEq/L (21-27) H 02/24/18 18:40 Chloride 92 mEq/L (98-107) L 02/25/18 00:54 Carbon Dioxide 42 mEq/L (23-29) H* 02/25/18 00:54 Glucose 243 mg/dL (70-105) H 02/25/18 00:54 POC Glucose 195 mg/dL (70-99) H 02/26/18 04:30 Magnesium 1.5 mg/dL (1.6-2.6) L 02/25/18 00:54 Albumin 3.3 g/dL (3.5-5.7) L 02/25/18 00:54 - Diagnostic Findings CT scan - chest: report reviewed, image reviewed - Clinical Findings Intake & Output: Intake & Output 02/25/18 02/26/18 02/26/18 23:59 07:59 15:59 Intake Total 0 / 0 Output Total 1225 / 1225 460 / 460 Balance -1225 / -1225 -460 / -460 Consult Discharge Plan - Plan [facility]errals: [facility] [Primary Care Provider] -
[2018-02-26 10:50] LABS: BUN/Creatinine Ratio 21 (6-26); Blood Urea Nitrogen 18 mg/dL (8-23); Calcium 9.1 mg/dL (8.6-10.3); Carbon Dioxide 39 mEq/L (23-29); Chloride 97 mEq/L (98-107); Glucose 250 mg/dL (70-105); Osmolality,Calculated 302 (280-300); Potassium 4.3 mEq/L (3.5-5.1); Sodium 141 mEq/L (136-145); eGFR For African Americans > 60 (> 60); eGFR For Non-African Americans > 60 (> 60)
[2018-02-26] MEDS: Budesonide/Formoterol 80/4.5 MDI IH SCH ×2 (11:25→19:22)
[2018-02-26 11:27] LABS: ABG Base Excess 14 mEq/L (-2 to 3); ABG HCO3 42 mEq/L (21-27); ABG Oxygen Saturation 93 % (95-98); ABG PCO2 68 mmHg (35-45); ABG PO2 72 mmHg (85-104); ABG TCO2 44 mEq/L (20-26)
[2018-02-26] MEDS: 0.9 % Sodium Chloride 1,000 ML IVC SCH ×2 (12:33→12:37)
[2018-02-26] MEDS: Acetaminophen 325 MG TABLET PO PRN (16:49)
--- NOTE | 2018-02-26 18:55 | Internal Med Progress Note ---
Date of Encounter: 02/26/18 Time of Encounter: 11:00 - Assessment and plan (1) Acute metabolic encephalopathy Current Visit: No Status: Acute Assessment and plan: Patient continues to be confused this morning CT of the head showed no acute findings and ammonia levels within normal limits patient's hypercapnia also improved on BiPAP Will continue to monitor (2) Pneumonia Current Visit: Yes Status: Acute Assessment and plan: CT of the chest with findings concerning for infiltrate Continue Levaquin Qualifiers: Pneumonia type: due to unspecified organism Laterality: right Lung location: lower lobe of lung Qualified Code(s): J18.1 - Lobar pneumonia, unspecified organism (3) Acute and chronic respiratory failure with hypercapnia Current Visit: Yes Status: Acute Assessment and plan: Resolved; continue to monitor (4) IDDM (insulin dependent diabetes mellitus) Current Visit: Yes Status: Chronic Assessment and plan: Continue Levemir and SSI. (5) DVT prophylaxis Current Visit: Yes Status: Acute Assessment and plan: Heparin SQ. - Time Spent With Patient Total time spent is greater than 50% in coordination of care (as documented) at patient's floor/unit and/or counseling patient: - Subjective Interval history: Patient continues to be confused this morning CT of the head showed no acute findings and ammonia levels within normal limits ; patient's hypercapnia also improved on BiPAP - Constitutional Vitals: Temp Pulse Resp BP Pulse Ox 98.2 F 102 18 161/77 91 02/26/18 15:45 02/26/18 15:45 02/26/18 16:25 02/26/18 15:45 02/26/18 16:25 General appearance: Present: cooperative, A&O X 1, disheveled, mild distress ( respiratory ) - Respiratory Respiratory exam: Present: CTAB. Absent: accessory muscle use, rales, rhonchi, wheezes - Cardiovascular Cardiovascular exam: Present: RRR, +S1, +S2. Absent: diastolic murmur, gallop, rubs, systolic murmur Internal Medicine: Result - Labs CBC & Chem 7: 02/26/18 09:46 02/26/18 09:46 Labs: Short CBC 02/26/18 Range/Units 09:46 WBC 5.4 (4.3-11.1) K/mcL Hgb 10.5 L (12.9-16.9) g/dL Hct 34.8 L (37.5-50.1) % Plt Count 154 (140-400) K/mcL Neutrophils # 4.7 (1.6-8.9) K/mcL BMP 02/26/18 09:46 Sodium 141 Potassium 4.3 Chloride 97 L Carbon Dioxide 39 H BUN 18 Creatinine 0.85 Glucose 250 H Calcium 9.1 - ABG Interpretation ABG results: ABG ABG pH 7.40 pH Units (7.32-7.45) 02/26/18 11:22 ABG pCO2 68 mmHg (35-45) H 02/26/18 11:22 ABG pO2 72 mmHg (85-104) L 02/26/18 11:22 ABG O2 Saturation 93 % (95-98) L 02/26/18 11:22 PT/INR, D-dimer PT 13.7 Seconds (9.4-12.1) H 02/25/18 00:54 - Impressions Impressions Head CT 02/26/18 14:14 IMPRESSION: No evidence of acute intracranial abnormality. D/ / 02/26/2018 15:58:07 Joselito Apple MD / essence Interpreting Provider: Joselito Apple MD Consult Discharge Plan - Plan [facility]errals: [facility] [Primary Care Provider] -
[2018-02-26] MEDS: Ketorolac 30 MG/ML VIAL IVP PRN (20:09)
[2018-02-26] MEDS ORDERED: Insulin LISPRO 300 UNITS/3 ML VIAL SQ SCH (21:00)
[2018-02-27] MEDS: Ipratropium/Albuterol Neb 3 ML IH SCH ×6 (03:28→23:32)
[2018-02-27] MEDS: *HR* Heparin 5,000 UNIT/ML VIAL SQ SCH ×2 (03:54→16:08)
[2018-02-27] MEDS: *HR* OxyCODONE Immed Rel 5 MG TABLET PO PRN ×3 (03:54→16:09)
--- NOTE | 2018-02-27 06:42 | Pulmonology Progress Note ---
Date of Encounter: 02/27/18 Time of Encounter: 06:42 Assessment and Plan (1) Acute and chronic respiratory failure with hypercapnia Current Visit: Yes Status: Acute This is 62-year-old gentleman presented with acute on chronic respiratory failure likely COPD exacerbation possible triggered underlying infectious processes i.e. pneumonia although this is unclear at this time. He has several comorbid conditions that are contributing to this process including the fact that he continues to smoke he has possible diaphragmatic paralysis underlying obstructive sleep apnea and obesity hypoventilation syndrome. Respiratory status appears much more compensated today from what was described to me by my partner at yesterday's examination -I would recommend continuation of noninvasive ventilation at night and nasal cannula during the day to keep saturation greater than 88% around 92% -Continue schedule bronchodilators every 4 hours with every hour albuterol as needed -IV steroids over the next 24 hours with de-escalation to oral prednisone with plan to continue a two-week taper -Early PTOT evaluation ambulation out of bed to chair and incentive spirometry to help mitigate the effects of VQ mismatching from atelectasis -Continue antimicrobial plan for de-escalation over next 24 hours based upon cultures probably for 5-7 days based upon clinical course -Tobacco cessation encouraged -Outpatient pulmonary follow-up for ongoing respiratory issues including repeat polysomnogram with BiPAP Please call with questions (2) Acute exacerbation of chronic obstructive airways disease Current Visit: No Status: Acute (3) Tobacco abuse Current Visit: No Status: Chronic (4) Congestive heart failure Current Visit: No Status: Chronic Qualifiers: Qualified Code(s): I50.32 - Chronic diastolic (congestive) heart failure (5) Pneumonia Current Visit: Yes Status: Acute Qualifiers: Pneumonia type: due to unspecified organism Laterality: right Lung location: lower lobe of lung Qualified Code(s): J18.1 - Lobar pneumonia, unspecified organism (6) Delirium Current Visit: No Status: Acute (7) Elevated hemidiaphragm Current Visit: Yes Status: Chronic Subjective Principal diagnosis: Respiratory Failure Interval history: Patient is much more awake and alert he is now out of restraints and following commands. Objective PUL Vital signs: Last Vital Signs Temp 97.7 F 02/27/18 03:58 Pulse 74 02/27/18 03:58 Resp 20 02/27/18 03:58 BP 157/85 02/27/18 03:58 Pulse Ox 96 02/27/18 03:58 General appearance: no acute distress Eyes: nonicteric Effort: normal Auscultation: bilateral: rhonchi Cardiovascular: regular rate and rhythm Extremities: no edema Musculoskeletal: no deformities normal mental status, non-focal exam mood appropriate Results - Laboratory Findings CBC and BMP: 02/26/18 09:46 02/26/18 09:46 ABG ABG pH 7.40 pH Units (7.32-7.45) 02/26/18 11:22 ABG pCO2 68 mmHg (35-45) H 02/26/18 11:22 ABG pO2 72 mmHg (85-104) L 02/26/18 11:22 ABG O2 Saturation 93 % (95-98) L 02/26/18 11:22 PT/INR, D-dimer PT 13.7 Seconds (9.4-12.1) H 02/25/18 00:54 Abnormal lab findings: Abnormal lab results RBC 3.71 M/mcL (4.19-5.50) L 02/26/18 09:46 Hgb 10.5 g/dL (12.9-16.9) L 02/26/18 09:46 Hct 34.8 % (37.5-50.1) L 02/26/18 09:46 MCHC 30.2 g/dL (31.6-35.5) L 02/26/18 09:46 RDW 15.0 % (11.5-14.5) H 02/26/18 09:46 Lymphocytes # 0.5 K/mcL (0.6-4.6) L 02/26/18 09:46 PT 13.7 Seconds (9.4-12.1) H 02/25/18 00:54 ABG pCO2 68 mmHg (35-45) H 02/26/18 11:22 ABG pO2 72 mmHg (85-104) L 02/26/18 11:22 ABG HCO3 42 mEq/L (21-27) H 02/26/18 11:22 ABG Total CO2 44 mEq/L (20-26) H 02/26/18 11:22 ABG O2 Saturation 93 % (95-98) L 02/26/18 11:22 ABG Base Excess 14 mEq/L (-2 to 3) H 02/26/18 11:22 VBG pCO2 70 mmHg (41-51) H* 02/24/18 18:40 VBG pO2 195 mmHg (25-50) H 02/24/18 18:40 VBG HCO3 44 mEq/L (21-27) H 02/24/18 18:40 Chloride 97 mEq/L (98-107) L 02/26/18 09:46 Carbon Dioxide 39 mEq/L (23-29) H 02/26/18 09:46 Glucose 250 mg/dL (70-105) H 02/26/18 09:46 POC Glucose 319 mg/dL (70-99) H 02/26/18 23:53 Calculated Osmolality 302 (280-300) H 02/26/18 09:46 Magnesium 1.5 mg/dL (1.6-2.6) L 02/25/18 00:54 Albumin 3.3 g/dL (3.5-5.7) L 02/25/18 00:54 - Clinical Findings Intake & Output: Intake & Output 02/26/18 02/26/18 02/27/18 15:59 23:59 07:59 Intake Total 240 / 240 360 / 360 Output Total 1510 / 1510 810 / 810 Balance -1270 / -1270 -450 / -450 Weight 112.4 kg Consult Discharge Plan - Plan [facility]errals: [facility] [Primary Care Provider] - 03/07/18 1:45 pm (BLUE TEAM)
[2018-02-27] MEDS: methylPREDNISolone 125 MG/2 ML VIAL IVP SCH ×2 (07:46→16:08)
[2018-02-27] MEDS: Insulin LISPRO 300 UNITS/3 ML VIAL SQ SCH ×5 (07:47→21:41)
[2018-02-27] MEDS: Budesonide/Formoterol 80/4.5 MDI IH SCH ×2 (07:58→19:40)
[2018-02-27] MEDS: Aspirin 81 MG TAB.CHEW PO SCH (09:01)
[2018-02-27] MEDS: Multivit/Ca/Min/Fe/FA 1 TAB TABLET PO SCH (09:01)
[2018-02-27] MEDS: 0.9 % Sodium Chloride 1,000 ML IVC SCH (09:02)
[2018-02-27] MEDS: Loratadine 10 MG TABLET PO SCH (09:02)
[2018-02-27] MEDS: Magnesium Oxide 400 MG TABLET PO SCH ×2 (09:02→21:40)
[2018-02-27] MEDS: Insulin DETEMIR 100 UNIT/ML X5UNITS SQ SCH ×2 (09:02→21:41)
[2018-02-27] MEDS: Levofloxacin 750 MG/150 ML 750 MG/150 ML BAG IVPB SCH (09:12)
[2018-02-27] MEDS: levETIRAcetam 250 MG TABLET PO SCH (11:55)
[2018-02-27 14:27] LABS: ABG Base Excess 17 mEq/L (-2 to 3); ABG HCO3 44 mEq/L (21-27); ABG Oxygen Saturation 87 % (95-98); ABG PCO2 65 mmHg (35-45); ABG PH 7.44 pH Units (7.32-7.45); ABG PO2 53 mmHg (85-104); ABG TCO2 46 mEq/L (20-26)
--- NOTE | 2018-02-27 14:42 | Internal Med Progress Note ---
Date of Encounter: 02/27/18 Time of Encounter: 11:20 - Assessment and plan (1) Pneumonia Current Visit: Yes Status: Acute Assessment and plan: Blood cultures are negative. WBC count is normal. Complete antibiotic course with levofloxacin. Moderate risk for complications. Qualifiers: Pneumonia type: due to unspecified organism Laterality: right Lung location: lower lobe of lung Qualified Code(s): J18.1 - Lobar pneumonia, unspecified organism (2) Acute exacerbation of chronic obstructive airways disease Current Visit: Yes Status: Acute Assessment and plan: Patient does have some wheezing. Continue IV Steroids and transition to oral steroids tomorrow. Pulmonology following. (3) Acute and chronic respiratory failure with hypercapnia Current Visit: Yes Status: Acute Assessment and plan: Currently on 3 L nasal cannula. Wean FiO2 as tolerated. Use BiPAP as needed. Pulmonology input appreciated. (4) Acute metabolic encephalopathy Current Visit: Yes Status: Acute Assessment and plan: Likely due to underlying hypoxia and pneumonia. MRI of the brain shows mild encephalomalacia involving bilateral inferior frontal lobes as well as right temporal lobe and mild global parenchymal volume loss. No acute infarct. Given these findings, patient may also have underlying dementia related to traumatic or ischemic brain injury which makes him prone to delirium and encephalopathy. Patient is more awake and alert today. Remains somewhat disoriented. (5) IDDM (insulin dependent diabetes mellitus) Current Visit: Yes Status: Chronic Assessment and plan: Uncontrolled. Will increase insulin regimen further. Nutritional coverage. Also increased long-acting insulin to [address] patient on diabetic diet. Uncontrolled blood sugars likely due to intravenous steroid use. (6) DVT prophylaxis Current Visit: Yes Status: Acute Assessment and plan: With subcutaneous heparin - Time Spent With Patient Total time spent is greater than 50% in coordination of care (as documented) at patient's floor/unit and/or counseling patient: - Subjective Interval history: Patient lying in bed. Comfortable. Denies any chest pain. Shortness of breath well-controlled at this time but earlier patient began to have increased shortness of breath with minimal exertion. Does have cough. No fever or chills reported overnight. - Constitutional Vitals: Temp Pulse Resp BP Pulse Ox 98.3 F 65 20 168/79 96 02/27/18 11:47 02/27/18 11:47 02/27/18 11:47 02/27/18 11:47 02/27/18 11:30 General appearance: Present: cooperative, A&O X 1, disheveled, mild distress, answers questions appropriately - Neck Neck exam general surgery: Present: supple, trachea midline. Absent: lymphadenopathy - Respiratory Respiratory exam: Present: decreased breath sounds (Diminished bilaterally), prolonged expiratory phase, wheezes. Absent: accessory muscle use, rales, rhonchi - Cardiovascular Cardiovascular exam: Present: RRR, +S1, +S2. Absent: diastolic murmur, gallop, rubs, systolic murmur - GI/Abdominal GI/Abdominal exam: Present: normal bowel sounds, soft, no peritoneal signs. Absent: distended, tenderness - Extremities Exam Extremities exam: Present: warm, radial pulses palpable and symmetrical. Absent : calf tenderness, cyanotic, pedal edema - Neurological Exam Neurological exam: Present: alert, CN II-XII intact, oriented X3, no focal deficits. Absent: facial droop, speech deficit - Skin Skin exam: Present: dry, intact Internal Medicine: Result - Labs CBC & Chem 7: 02/26/18 09:46 02/26/18 09:46 - ABG Interpretation ABG results: ABG ABG pH 7.40 pH Units (7.32-7.45) 02/26/18 11:22 ABG pCO2 68 mmHg (35-45) H 02/26/18 11:22 ABG pO2 72 mmHg (85-104) L 02/26/18 11:22 ABG O2 Saturation 93 % (95-98) L 02/26/18 11:22 PT/INR, D-dimer PT 13.7 Seconds (9.4-12.1) H 02/25/18 00:54 - Impressions Impressions Brain MRI 02/26/18 10:54 IMPRESSION: 1. No acute intracranial abnormality. No acute infarct. 2. Mild encephalomalacia involving the bilateral inferior frontal lobes as well as the right temporal lobe, which may represent sequelae of prior ischemic or traumatic insult. 3. Mild global parenchymal volume loss. D/ / Luis Alberto Ivey MD / Luis Alberto Ivey MD Interpreting Provider: Luis Alberto Ivey MD Head CT 02/26/18 14:14 IMPRESSION: No evidence of acute intracranial abnormality. D/ / 02/26/2018 15:58:07 Joselito Apple MD / essence Interpreting Provider: Joselito Apple MD Consult Discharge Plan - Plan Referrals: [facility] [Primary Care Provider] - 03/07/18 1:45 pm (BLUE TEAM)
[2018-02-27] MEDS: Ketorolac 30 MG/ML VIAL IVP PRN (22:42)
[2018-02-28] MEDS: methylPREDNISolone 125 MG/2 ML VIAL IVP SCH ×3 (00:58→17:47)
[2018-02-28] MEDS: levETIRAcetam 250 MG TABLET PO SCH ×2 (00:58→12:11)
[2018-02-28] MEDS: Ipratropium/Albuterol Neb 3 ML IH SCH ×5 (03:54→19:44)
[2018-02-28] MEDS: *HR* Heparin 5,000 UNIT/ML VIAL SQ SCH ×2 (05:37→18:06)
[2018-02-28] MEDS: *HR* OxyCODONE Immed Rel 5 MG TABLET PO PRN ×3 (06:02→17:53)
[2018-02-28 06:25] LABS: Hematocrit 35.2 % (37.5-50.1); Hemoglobin 10.5 g/dL (12.9-16.9); Immature Granulocytes % 0.5 % (0-4); Lymphocytes # 0.4 K/mcL (0.6-4.6); Lymphocytes % 6.2 %; Mean Corpuscular HGB Conc 29.8 g/dL (31.6-35.5); Mean Corpuscular Hemoglobin 28.4 pg (28.0-33.3); Mean Corpuscular Volume 95.1 fL (83.0-100.0); Mean Platelet Volume 10.3 fL (9.4-12.4); Monocytes # 0.1 K/mcL (0.0-1.3); Monocytes % 2.1 %; Neutrophils # 5.8 K/mcL (1.6-8.9); Platelet Count 138 K/mcL (140-400); Red Cell Distribution Width 14.8 % (11.5-14.5); Segmented Neutrophils % 91.2 %
[2018-02-28 06:49] LABS: BUN/Creatinine Ratio 38 (6-26); Blood Urea Nitrogen 33 mg/dL (8-23); Calcium 8.9 mg/dL (8.6-10.3); Carbon Dioxide 39 mEq/L (23-29); Chloride 98 mEq/L (98-107); Glucose 346 mg/dL (70-105); Osmolality,Calculated 309 (280-300); Potassium 4.8 mEq/L (3.5-5.1); Sodium 139 mEq/L (136-145); eGFR For African Americans > 60 (> 60); eGFR For Non-African Americans > 60 (> 60)
[2018-02-28] MEDS: Budesonide/Formoterol 80/4.5 MDI IH SCH ×2 (07:51→19:43)
[2018-02-28] MEDS: Loratadine 10 MG TABLET PO SCH (08:37)
[2018-02-28] MEDS: Insulin DETEMIR 100 UNIT/ML X5UNITS SQ SCH ×2 (08:37→21:30)
[2018-02-28] MEDS: Multivit/Ca/Min/Fe/FA 1 TAB TABLET PO SCH (08:37)
[2018-02-28] MEDS: Magnesium Oxide 400 MG TABLET PO SCH ×2 (08:37→19:53)
[2018-02-28] MEDS: Aspirin 81 MG TAB.CHEW PO SCH (08:37)
[2018-02-28] MEDS: Insulin LISPRO 300 UNITS/3 ML VIAL SQ SCH ×7 (08:38→21:30)
[2018-02-28] MEDS: Levofloxacin 750 MG/150 ML 750 MG/150 ML BAG IVPB SCH (08:39)
[2018-02-28] MEDS: 0.9 % Sodium Chloride 1,000 ML IVC SCH ×2 (10:28→12:17)
--- NOTE | 2018-02-28 16:34 | Internal Med Progress Note ---
Date of Encounter: 02/28/18 Time of Encounter: 11:50 - Assessment and plan (1) Pneumonia Current Visit: Yes Status: Acute Assessment and plan: Continue Levaquin. Will switch to oral dosing. Qualifiers: Pneumonia type: due to unspecified organism Laterality: right Lung location: lower lobe of lung Qualified Code(s): J18.1 - Lobar pneumonia, unspecified organism (2) Acute exacerbation of chronic obstructive airways disease Current Visit: Yes Status: Acute Assessment and plan: Continue bronchodilators. Taper steroids. Switch to oral prednisone (3) Acute and chronic respiratory failure with hypercapnia Current Visit: Yes Status: Acute Assessment and plan: Continue O2 supplementation. (4) Acute metabolic encephalopathy Current Visit: Yes Status: Acute Assessment and plan: Improving. Patient is more oriented today. Answered no questions appropriately. MRI of the brain shows mild encephalomalacia involving bilateral inferior frontal lobes. Could be contributing to patient's issues with memory. (5) IDDM (insulin dependent diabetes mellitus) Current Visit: Yes Status: Chronic Assessment and plan: Blood sugars remain elevated. Will increase Levemir dosage to 25 units twice daily. (6) DVT prophylaxis Current Visit: Yes Status: Acute Assessment and plan: Continue subcutaneous heparin - Time Spent With Patient Total time spent is greater than 50% in coordination of care (as documented) at patient's floor/unit and/or counseling patient: - Subjective Interval history: Patient sitting up in chair. Concerned about his home situation. Does not wish to go to a care home. Otherwise doing well overall. Respiratory status is improving. No fever or chills reported overnight. - Constitutional Vitals: Temp Pulse Resp BP Pulse Ox 97.4 F L 78 18 126/76 96 02/28/18 16:14 02/28/18 16:14 02/28/18 16:14 02/28/18 16:14 02/28/18 16:14 General appearance: Present: cooperative, disheveled, A&O X 2, mild distress, answers questions appropriately - Eye Eye exam: Present: EOMI, PERRL, conjuntiva pink, sclera anicteric - Neck Neck exam general surgery: Present: supple, trachea midline. Absent: lymphadenopathy - Respiratory Respiratory exam: Present: prolonged expiratory phase, wheezes (Mild). Absent: accessory muscle use, rales, rhonchi - Cardiovascular Cardiovascular exam: Present: RRR, +S1, +S2. Absent: diastolic murmur, gallop, rubs, systolic murmur - GI/Abdominal GI/Abdominal exam: Present: normal bowel sounds, soft, no peritoneal signs. Absent: distended, tenderness - Extremities Exam Extremities exam: Present: warm, radial pulses palpable and symmetrical. Absent : calf tenderness, cyanotic, pedal edema - Neurological Exam Neurological exam: Present: CN II-XII intact, oriented X3, no focal deficits. Absent: facial droop, speech deficit - Skin Skin exam: Present: dry, intact Internal Medicine: Result - Labs CBC & Chem 7: 02/28/18 05:48 02/28/18 05:48 Labs: Short CBC 02/28/18 Range/Units 05:48 WBC 6.3 (4.3-11.1) K/mcL Hgb 10.5 L (12.9-16.9) g/dL Hct 35.2 L (37.5-50.1) % Plt Count 138 L (140-400) K/mcL Neutrophils # 5.8 (1.6-8.9) K/mcL BMP 02/28/18 05:48 Sodium 139 Potassium 4.8 Chloride 98 Carbon Dioxide 39 H BUN 33 H Creatinine 0.87 Glucose 346 H Calcium 8.9 - ABG Interpretation ABG results: ABG ABG pH 7.40 pH Units (7.32-7.45) 02/26/18 11:22 ABG pCO2 68 mmHg (35-45) H 02/26/18 11:22 ABG pO2 72 mmHg (85-104) L 02/26/18 11:22 ABG O2 Saturation 93 % (95-98) L 02/26/18 11:22 PT/INR, D-dimer PT 13.7 Seconds (9.4-12.1) H 02/25/18 00:54 - Impressions Impressions Head CT 02/26/18 14:14 IMPRESSION: No evidence of acute intracranial abnormality. D/ / 02/26/2018 15:58:07 Joselito Apple MD / essence Interpreting Provider: Joselito Apple MD Consult Discharge Plan - Plan [facility]errals: [facility] [Primary Care Provider] - 03/07/18 1:45 pm (BLUE TEAM)
[2018-02-28] MEDS: predniSONE 20 MG TABLET PO SCH (17:51)
[2018-03-01] MEDS: Ipratropium/Albuterol Neb 3 ML IH SCH ×4 (00:15→11:06)
[2018-03-01] MEDS: *HR* OxyCODONE Immed Rel 5 MG TABLET PO PRN ×2 (00:24→06:22)
[2018-03-01] MEDS: levETIRAcetam 250 MG TABLET PO SCH (00:24)
[2018-03-01] MEDS: *HR* Heparin 5,000 UNIT/ML VIAL SQ SCH (05:43)
[2018-03-01 06:24] LABS: Hemoglobin 10.6 g/dL (12.9-16.9); Immature Granulocytes % 0.2 % (0-4); Lymphocytes # 0.4 K/mcL (0.6-4.6); Lymphocytes % 8.7 %; Mean Corpuscular HGB Conc 30.3 g/dL (31.6-35.5); Mean Corpuscular Hemoglobin 28.4 pg (28.0-33.3); Mean Corpuscular Volume 93.8 fL (83.0-100.0); Mean Platelet Volume 10.1 fL (9.4-12.4); Monocytes # 0.2 K/mcL (0.0-1.3); Monocytes % 3.9 %; Platelet Count 124 K/mcL (140-400); Red Blood Count 3.73 M/mcL (4.19-5.50); Red Cell Distribution Width 14.6 % (11.5-14.5); Segmented Neutrophils % 87.2 %
[2018-03-01 06:26] LABS: BUN/Creatinine Ratio 36 (6-26); Blood Urea Nitrogen 31 mg/dL (8-23); Calcium 8.7 mg/dL (8.6-10.3); Carbon Dioxide 39 mEq/L (23-29); Chloride 97 mEq/L (98-107); Glucose 286 mg/dL (70-105); Osmolality,Calculated 305 (280-300); Potassium 4.9 mEq/L (3.5-5.1); Sodium 139 mEq/L (136-145); eGFR For African Americans > 60 (> 60); eGFR For Non-African Americans > 60 (> 60)
[2018-03-01] MEDS: Budesonide/Formoterol 80/4.5 MDI IH SCH (07:33)
[2018-03-01] MEDS: Insulin LISPRO 300 UNITS/3 ML VIAL SQ SCH ×4 (07:50→12:27)
[2018-03-01] MEDS: Levofloxacin 750 MG/150 ML 750 MG/150 ML BAG IVPB SCH (07:51)
[2018-03-01] MEDS: Insulin DETEMIR 100 UNIT/ML X5UNITS SQ SCH (07:52)
[2018-03-01] MEDS: predniSONE 20 MG TABLET PO SCH (07:52)
[2018-03-01] MEDS: Aspirin 81 MG TAB.CHEW PO SCH (07:52)
[2018-03-01] MEDS: Multivit/Ca/Min/Fe/FA 1 TAB TABLET PO SCH (07:52)
[2018-03-01] MEDS: Loratadine 10 MG TABLET PO SCH (07:52)
[2018-03-01] MEDS: Magnesium Oxide 400 MG TABLET PO SCH (07:52)
[2018-03-01] MEDS ORDERED: *HR* OxyCODONE Immed Rel 5 MG TABLET PO PRN (09:16)
[2018-03-01] MEDS ORDERED: levETIRAcetam 250 MG TABLET PO SCH (10:00)
[2018-03-01 11:00] VITALS: BP 163/80
--- NOTE | 2018-03-01 12:41 | Discharge Summary ---
- NOTES TO OUTPATIENT PROVIDER Notes to Outpatient Provider: Patient admitted with pneumonia and acute on chronic respiratory failure and COPD exacerbation. Treated with IV antibiotics and O2 supplementation with improvement in his symptoms. Orders not resulted at time of discharge: Pending orders 02/26/18 18:58 Urine tox screen [Drug Screen, Urine] [UCHEM] Routine Date of Encounter: 03/01/18 Time of Encounter: 12:31 - Discharge Diagnosis (1) Pneumonia Priority: Primary Status: Acute Qualifiers: Pneumonia type: due to unspecified organism Laterality: right Lung location: lower lobe of lung Qualified Code(s): J18.1 - Lobar pneumonia, unspecified organism (2) Acute exacerbation of chronic obstructive airways disease Priority: Secondary Status: Acute (3) Acute and chronic respiratory failure with hypercapnia Priority: Secondary Status: Acute (4) Acute metabolic encephalopathy Priority: Secondary Status: Resolved (5) IDDM (insulin dependent diabetes mellitus) Priority: Secondary Status: Chronic (6) DVT prophylaxis Priority: Secondary Status: Acute Hospital course: Mr. Thompson is a 62 year old male patient with history of CHF, COPD, traumatic brain injury, diabetes, hepatitis, hypertension, liver disease who was hospitalized here with acute on chronic respiratory failure, acute encephalopathy and pneumonia. He was started on treatment for this with IV antibiotics, O2 supplementation and bronchodilators. Patient also has underlying COPD and was also diagnosed with COPD exacerbation. He was placed on BiPAP initially and received IV steroids. His symptoms slowly improved. His mental status has also improved. We did do an MRI of his brain to evaluate for any acute stroke. Patient did not have any acute infarct but had encephalomalacia involving bilateral inferior frontal lobes related to prior traumatic insult. This could be causing episodes of delirium and dementia in the patient. He was evaluated by physical therapy and recommended home health. Patient will be discharged today with home health. He will follow up with his primary care provider for further management. He will also complete her course of antibiotics and steroid taper per pulmonology recommendations. Discharge discussed with: patient, family, nurse - Time Spent with Patient Total time spent providing and/or coordinating discharge services: Greater than 30 minutes (40 min) - Discharge Medications Prescriptions: levoFLOXacin [Levaquin] 750 mg PO DAILY #5 tablet predniSONE [PredniSONE] 10 mg PO DAILY 12 Days #30 tablet Home Medications: Cholecalciferol (Vitamin D3) [Vitamin D3] 1,000 unit PO BID 03/15/16 [History] Magnesium 400 mg PO BID 03/15/16 [History] Budesonide/Formoterol 80/4.5 [Symbicort 80/4.5] 2 puff IH BIDR #2 inhaler 03/17 [Rx] Cyanocobalamin (Vitamin B-12) [Vitamin B12] 1,000 mcg PO BID 04/03/17 [History] Loratadine [Allergy Relief] 10 mg PO DAILY 04/03/17 [History] Omeprazole 20 mg PO DAILY 04/03/17 [History] Tiotropium [Spiriva] 18 mcg IH DAILY 04/03/17 [History] Albuterol Sulfate [Ventolin Hfa] 1 puff IH Q4H PRN 04/04/17 [History] Lactulose 10 gm PO DAILY PRN 04/04/17 [History] Multivitamin-Min/Iron/FA/Vit K [Multi-Day Plus Minerals Tablet] 1 each PO DAILY 04/04/17 [History] Aspirin 81 mg PO DAILY tab.chew 09/05/17 [Rx] Atorvastatin [Lipitor] 40 mg PO HS tablet 09/05/17 [Rx] Bisacodyl [Dulcolax] 10 mg PO DAILY PRN tablet 09/05/17 [Rx] Metoprolol [Lopressor] 75 mg PO BID tablet 09/05/17 [Rx] levETIRAcetam [Keppra] 250 mg PO Q12H 10/26/17 [History] Lisinopril [Zestril] 10 mg PO DAILY 12/13/17 [History] Furosemide [Lasix] 20 mg PO DAILY PRN #30 tablet 12/19/17 [Rx] Insulin DETEMIR [Levemir] 25 unit SQ BID [id number] 12/19/17 [Rx] Memantine HCl 10 mg PO BID 02/24/18 [History] Oxycodone HCl [Oxaydo] 5 mg PO Q6H 02/24/18 [History] Potassium Gluconate [Potassium] 99 mg PO DAILY 02/24/18 [History] Zinc Sulfate [Zinc-15] 66 mg PO BID 02/24/18 [History] levoFLOXacin [Levaquin] 750 mg PO DAILY #5 tablet 03/01/18 [Rx] predniSONE [PredniSONE] 10 mg PO DAILY 12 Days #30 tablet 03/01/18 [Rx] Allergies/Adverse Reactions: 3 Allergy/AdvReac Type Severity Reaction Status Date / Time No Known Allergies Allergy Verified 03/15/16 17:09 Date of admission: 02/25/18 00:36 Primary care physician: PCP [place] Consults: 02/26/18 09:33 Consult to Pulmonology [CONS] Routine Consulting Provider: [facility] Reason for Consult: respiratory failure on Bipap Time Notified: 09:30 Call Completed: Yes 02/27/18 12:20 Consult to Occupational Therapy [CONS] Routine Comment: Evaluate, develop and implement POC Reason for Consult: Patient has coordination difficulties and [facility] Does patient have active BEDREST order?: No Is patient medically & hemodynamically stable?: Yes Patient assessed for mobility or mobilized this visit?: Yes Consult to Physical Therapy [CONS] Routine Comment: Evaluate, develop and implement POC Reason for Consult: Patient has coordination difficulties and may need to [facility] Does patient have active BEDREST order?: No Is patient medically & hemodynamically stable?: Yes Patient assessed for mobility or mobilized this visit?: Yes Consult to Director Of Strategic Sourcing [CONS] Routine Reason for SW Consult: The patient wants to meet [facility] for discharge planning. Discharging clinician: Kate Oconnor Anticipated date of discharge: 03/01/18 - Constitutional Vitals: Temp Pulse Resp BP Pulse Ox 98 F 52 18 163/80 95 03/01/18 10:59 03/01/18 10:59 03/01/18 11:06 03/01/18 10:59 03/01/18 11:06 General appearance: Present: cooperative, disheveled, A&O X 2, mild distress, answers questions appropriately - Neck Neck exam general surgery: Present: supple, trachea midline. Absent: lymphadenopathy - Respiratory Respiratory exam: Present: decreased breath sounds (Diminished breath sounds bilaterally), prolonged expiratory phase. Absent: accessory muscle use, rales, rhonchi, wheezes - Cardiovascular Cardiovascular exam: Present: RRR, +S1, +S2. Absent: diastolic murmur, gallop, rubs, systolic murmur - GI/Abdominal GI/Abdominal exam: Present: normal bowel sounds, soft, no peritoneal signs. Absent: distended, tenderness - Extremities Exam Extremities exam: Present: warm, radial pulses palpable and symmetrical. Absent : calf tenderness, cyanotic, pedal edema - Neurological Exam Neurological exam: Present: alert, oriented X3, no focal deficits. Absent: facial droop, speech deficit - Skin Skin exam: Present: dry, intact - Patient Status Disposition: Home Health Service Condition: Good Functional capacity at discharge: uses cane/walker Overall status at discharge: patient is progressing back to baseline - Discharge Instructions Instructions: Acute Respiratory Distress Syndrome (DC), Diabetes Mellitus Type 2 in Adults (DC), Chronic Obstructive Pulmonary Disease (DC) [facility] Provider[facility] - 03/07/18 1:45 pm (BLUE TEAM) - Diet and Activity Activity: increase activity as tolerated Diet: diabetic diet, low fat, low cholesterol, low salt diet
--- NOTE | 2018-03-01 12:57 | Physician Discharge Referral ---
Home Health/Hosp Referral Info Transfer to: Home Health Provider in Charge Post Discharge: PCP - Diagnosis (1) Pneumonia Priority: Primary Status: Acute (2) Acute exacerbation of chronic obstructive airways disease Priority: Secondary Status: Acute (3) Acute and chronic respiratory failure with hypercapnia Priority: Secondary Status: Acute (4) Acute metabolic encephalopathy Priority: Secondary Status: Resolved (5) IDDM (insulin dependent diabetes mellitus) Priority: Secondary Status: Chronic (6) DVT prophylaxis Priority: Secondary Status: Acute - Respiratory Orders Oxygen / L per min (3) Smoking Cessation: Smoking cessation has been advised. For more information, call the [place] Tobacco Quit Line at 2-426-PSFN-NOW. - Diet/Nutrition Diet/Nutrition Orders: Cardiac, No Concentrated Sweets (Diabetic diet) - Activity Activity Orders: Walker - Services Needed Following services are medically necessary services: Nursing, Physical Therapy, Occupational Therapy - Transfer Medications Prescriptions: levoFLOXacin [Levaquin] 750 mg PO DAILY #5 tablet Home Medications: Cholecalciferol (Vitamin D3) [Vitamin D3] 1,000 unit PO BID 03/15/16 [History] Magnesium 400 mg PO BID 03/15/16 [History] Budesonide/Formoterol 80/4.5 [Symbicort 80/4.5] 2 puff IH BIDR #2 inhaler 03/17 [Rx] Cyanocobalamin (Vitamin B-12) [Vitamin B12] 1,000 mcg PO BID 04/03/17 [History] Loratadine [Allergy Relief] 10 mg PO DAILY 04/03/17 [History] Omeprazole 20 mg PO DAILY 04/03/17 [History] Tiotropium [Spiriva] 18 mcg IH DAILY 04/03/17 [History] Albuterol Sulfate [Ventolin Hfa] 1 puff IH Q4H PRN 04/04/17 [History] Lactulose 10 gm PO DAILY PRN 04/04/17 [History] Multivitamin-Min/Iron/FA/Vit K [Multi-Day Plus Minerals Tablet] 1 each PO DAILY 04/04/17 [History] Aspirin 81 mg PO DAILY tab.chew 09/05/17 [Rx] Atorvastatin [Lipitor] 40 mg PO HS tablet 09/05/17 [Rx] Bisacodyl [Dulcolax] 10 mg PO DAILY PRN tablet 09/05/17 [Rx] Metoprolol [Lopressor] 75 mg PO BID tablet 09/05/17 [Rx] levETIRAcetam [Keppra] 250 mg PO Q12H 10/26/17 [History] Lisinopril [Zestril] 10 mg PO DAILY 12/13/17 [History] Furosemide [Lasix] 20 mg PO DAILY PRN #30 tablet 12/19/17 [Rx] Insulin DETEMIR [Levemir] 25 unit SQ BID [id number] 12/19/17 [Rx] Memantine HCl 10 mg PO BID 02/24/18 [History] Oxycodone HCl [Oxaydo] 5 mg PO Q6H 02/24/18 [History] Potassium Gluconate [Potassium] 99 mg PO DAILY 02/24/18 [History] Zinc Sulfate [Zinc-15] 66 mg PO BID 02/24/18 [History] levoFLOXacin [Levaquin] 750 mg PO DAILY #5 tablet 03/01/18 [Rx] Allergies/Adverse Reactions: 3 Allergy/AdvReac Type Severity Reaction Status Date / Time No Known Allergies Allergy Verified 03/15/16 17:09 Certification: Further, I certify that my clinical findings support that this patient is homebound (i.e. absences from home require considerable and taxing effort and are for medical reasons or hindu services or infrequently or short duration when for other reasons) because: Homebound Reason: Patient requires assistance of a person or device to safely leave home Attestation: My signature below is to certify that this patient is under my care and that I, or nurse practitioner, or a physician's cataloging assistant working with me, has a face-to -face encounter with this patient.
[2018-03-02] MEDS ORDERED: levoFLOXacin 750 MG TABLET PO SCH (09:00)
--- NOTE | 2018-03-03 08:51 | Electrocardiograph Report ---
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
== END 2018-03-01 15:04 | disposition home health service (06) | DRG 193 ==
LOC: 2NNU 15:32 → EMEROO 15:32 → 2NNU 22:43 → SUATTDRO 02-25 00:36 → 2ANU 02-27 17:21
PROVIDERS: ADMIT Internal Medicine; ATTEND Internal Medicine

== ENCOUNTER 2018-08-09 16:13 | Inpatient (IN) ==
[2018-08-09 18:36] LABS: ABG Base Excess 20 mEq/L (-2 to 3); ABG HCO3 50 mEq/L (21-27); ABG Oxygen Saturation 87 % (95-98); ABG PCO2 85 mmHg (35-45); ABG PH 7.38 pH Units (7.32-7.45); ABG PO2 59 mmHg (85-104); ABG TCO2 53 mEq/L (20-26); Blood Gas Modality BiLevel; Blood Gas PEEP 7 cm H2O; Blood Gas Pressure Support 14 cm H2O
[2018-08-09] MEDS ORDERED: Ondansetron ODT 4 MG TAB.RAPDIS SL PRN (19:58)
[2018-08-09] MEDS ORDERED: Naloxone 0.4 MG/ML INJ IVP PRN ×2 (19:58→20:49)
[2018-08-09] MEDS ORDERED: *HR* Dextrose 50 % in Water (Syg) 50 ML SYRINGE IVP PRN (20:07)
[2018-08-09] MEDS ORDERED: D5% in Water 1,000 ML IVC PRN (20:07)
[2018-08-09] MEDS ORDERED: Dextrose Gel 15 GM/37.5 ML TUBE PO PRN ×2 (20:07)
--- NOTE | 2018-08-09 20:22 | Internal Med History&Physical ---
<Andre Leslie - Last Filed: 08/09/18 20:35> Date of Encounter: 08/09/18 Time of Encounter: 20:18 Internal Medicine - H&P: HPI Chief complaint: Shortness of breath Admitted From: Emergency Dept Plans for Post Hospital Care: Home History of present illness: Mr. Thompson is a 62 year old male with history of COPD, MAITE, type 2 diabetes, cirrhosis, seizure disorder presents with shortness of breath. Patient states that early in the day he was taking his lactulose and it "went down the wrong pipe." This caused him severe coughing and shortness of breath. Because of this he presented to the emergency department. According to his his pulse oxygenation dropped at this time as well. He was transferred to emergency department and per records and felt better upon arrival to the emergency department. He states that before this episode he was feeling well in his normal state of health. At this time he denies fever, chills, chest pain, abdominal pain, nausea, vomiting, diarrhea, lower extremity swelling. Past Med Surg Social Fam HX - Past Medical History Medical history: cirrhosis, CHF, COPD, coronary artery disease, diabetes, hepatitis, hyperlipidemia, hypertension, liver disease, myocardial infarction, other Additional medical history: chronic back pain, hepatitis C Psychiatric history: anxiety, depression - Past Surgical History Surgical History: cholecystectomy, orthopedic, other Additional surgical history: stent in gallbladder/liver stent, hemerrhoid surgery - Social History Smoking Status: Former smoker Smokeless Tobacco Status: No Alcohol use: none Drug use: none - Family History Mother History Unknown: Yes Living Status: Still Living Hx Family Endocrine Disorder: Yes (DM) Father History Unknown: Yes Living Status: Still Living Hx Family Cardiac Disorders: Yes ([place], CABG) Hx Family Endocrine Disorder: Yes (DM) Internal Medicine - H&P: Meds Cholecalciferol (Vitamin D3) [Vitamin D3] 1,000 unit PO BID 03/15/16 [History] Magnesium 400 mg PO BID 03/15/16 [History] Budesonide/Formoterol 80/4.5 [Symbicort 80/4.5] 2 puff IH BIDR #2 inhaler 03/17 [Rx] Cyanocobalamin (Vitamin B-12) [Vitamin B12] 1,000 mcg PO BID 04/03/17 [History] Loratadine [Allergy Relief] 10 mg PO DAILY 04/03/17 [History] Omeprazole 20 mg PO DAILY 04/03/17 [History] Aspirin 81 mg PO DAILY tab.chew 09/05/17 [Rx] Atorvastatin [Lipitor] 40 mg PO HS tablet 09/05/17 [Rx] levETIRAcetam [Keppra] 250 mg PO Q12H 10/26/17 [History] Furosemide [Lasix] 20 mg PO DAILY PRN #30 tablet 12/19/17 [Rx] Memantine HCl 10 mg PO BID 02/24/18 [History] Oxycodone HCl [Oxaydo] 5 mg PO Q6H 02/24/18 [History] Docusate Sodium [Stool Softener] 50 mg PO HS 08/09/18 [History] Insulin ASPART [Novolog Flexpen] 5 unit SQ TIDWM 08/09/18 [History] Insulin DETEMIR [Levemir] 30 unit SQ BID 08/09/18 [History] Ipratropium/Albuterol Sulfate [Combivent Respimat Inhal [place]] 1 puff IH Q6H PRN 08/09/18 [History] Lactulose 10 gm PO Q8HR 08/09/18 [History] Losartan [Cozaar] 25 mg PO DAILY 08/09/18 [History] Metoprolol [Lopressor] 50 mg PO TID 08/09/18 [History] Potassium Chloride [K-Tab ER] 20 meq PO DAILY 08/09/18 [History] Sertraline [Zoloft] 50 mg PO DAILY 08/09/18 [History] hydrOXYzine HCl [Hydroxyzine HCl] 25 mg PO HS 08/09/18 [History] 3 Allergy/AdvReac Type Severity Reaction Status Date / Time No Known Allergies Allergy Verified 03/15/16 17:09 ROS unobtainable: other (Limited due to BiPAP) All Systems PM: A 10-system review of systems was performed and is negative for pertinent findings except as documented above in the HPI. - Constitutional Constitutional: no chills, no fever(s) - Cardiovascular Cardiovascular ROS IM: dyspnea, no chest pain, no lightheadedness, no syncope - Respiratory Respiratory: cough, dyspnea, no chest congestion, no excessive phlegm production , no change in phlegm color - Gastrointestinal Gastrointestinal: no abdominal pain, no nausea, no vomiting - Genitourinary Genitourinary ROS male: no dysuria - Musculoskeletal Musculoskeletal ROS IM: back pain, no numbness, no tingling - Integumentary Integumentary IM: no erythema, no new lesions - Neurological Neurological ROS: no confusion, no dizziness, no numbness, no tingling - Allergic/Immunologic Allergic/Immunologic: no throat swelling - Constitutional Vitals: Temp Pulse Resp BP Pulse Ox 100.2 F H 102 17 142/78 96 08/09/18 19:06 08/09/18 19:06 08/09/18 19:06 08/09/18 19:06 08/09/18 19:06 General appearance: Present: A&O X 3, no acute distress Exam: . - Head Head exam: Present: atraumatic, normal inspection, normocephalic - Eye Eye exam: Present: EOMI, PERRL - Respiratory Respiratory exam: Present: decreased breath sounds (Severely diminished), tachypnea (mild). Absent: rales, respiratory distress, rhonchi, wheezes - Cardiovascular Cardiovascular exam: Present: RRR. Absent: gallop, rubs, systolic murmur - GI/Abdominal GI/Abdominal exam: Present: normal bowel sounds, soft. Absent: distended, tenderness - Extremities Exam Extremities exam: Present: warm. Absent: pedal edema, tenderness - Neurological Exam Neurological exam: Present: alert, CN II-XII intact, oriented X3, no focal deficits - Psychiatric Psychiatric exam: Present: normal affect, normal mood - Skin Skin exam: Present: dry, intact, warm Internal Med - H&P Results - ABG Interpretation ABG results: 08/09/18 18:32 ABG pH 7.38 D ABG pCO2 85 H* D ABG pO2 59 L ABG HCO3 50 H ABG Total CO2 53 H ABG O2 Saturation 87 L ABG Base Excess 20 H - Assessment and plan (1) Acute and chronic respiratory failure Current Visit: Yes Status: Acute Assessment and plan: Secondary to aspiration and acute exacerbation of COPD. Upon arrival to the emergency room patient had a respiratory acidosis PCO2 of 108. He is placed on BiPAP and has responded well. PH has normalized and PCO2 is in the 80s which is likely his baseline. Continue BiPAP as needed with breaks allowed. Continue oxygen supplementation to maintain saturation greater than 89%. Patient should continue with BiPAP when sleeping. Qualifiers: Respiratory failure complication: hypoxia and hypercapnia Qualified Code(s) : J96.21 - Acute and chronic respiratory failure with hypoxia; J96.22 - Acute and chronic respiratory failure with hypercapnia (2) Acute exacerbation of chronic obstructive airways disease Current Visit: No Status: Acute Assessment and plan: Likely secondary to aspiration. On exam patient appears extremely diminished with minimal air movement. Oxygenation and ventilation acceptable on noninvasive ventilation. We will institute scheduled DuoNeb's, Solu-Medrol 60 mg every 6. Patient received one-time dose of Solu-Medrol 125 mg in route to the emergency department. We will cover for aspiration pneumonia with Unasyn. (3) Aspiration pneumonia Current Visit: Yes Status: Acute Assessment and plan: Patient had an aspiration event with lactulose that precipitated his acute exacerbation of COPD as discussed above. Upon arrival patient has a temperature of 100.2, concern for developing aspiration pneumonia. Patient received Unasyn 3 g in the emergency department, we will continue this with Unasyn 3 g every 6 hours. We will check blood cultures and lactic acid. Patient does not appear septic at this time. We will keep patient nothing by mouth overnight and speech evaluation in the morning. Qualifiers: Aspiration pneumonia type: due to vomit Laterality: unspecified laterality Lung location: unspecified part of lung Qualified Code(s): J69.0 - Pneumonitis due to inhalation of food and vomit (4) Cirrhosis Current Visit: Yes Status: Acute Assessment and plan: Per report patient had a significant drinking history when he was younger. Likely cause of his cirrhosis. Patient is alert and oriented and mentating appropriately. Ammonia mildly elevated at 58 but otherwise patient is stable. We will hold lactulose at this time given concern for aspiration until he can be evaluated by speech therapy and then we will continue. Qualifiers: Hepatic cirrhosis type: unspecified hepatic cirrhosis Ascites presence: without ascites Qualified Code(s): K74.60 - Unspecified cirrhosis of liver (5) Hypertension Current Visit: No Status: Chronic Assessment and plan: Blood pressure mildly elevated but stable this time. We will continue to monitor. Slowly add back home medications. Qualifiers: Hypertension type: essential hypertension Qualified Code(s): I10 - Essential (primary) hypertension (6) IDDM (insulin dependent diabetes mellitus) Current Visit: No Status: Chronic Assessment and plan: Blood sugar elevated at 219 on presentation. Patient has a history of diabetes and uses insulin at home. Patient is currently nothing by mouth so we will check blood sugars every 6 hours and cover with moderate dose sliding scale. Once the patient is able to eat can be restarted on home insulin regimen. (7) DVT prophylaxis Current Visit: No Status: Acute Assessment and plan: Lovenox 40 mg subcutaneous daily. (8) Seizure disorder Current Visit: Yes Status: Acute Assessment and plan: History of. No evidence of seizure activity. Continue Keppra. - Time Spent With Patient Total time spent is greater than 50% in coordination of care (as documented) at patient's floor/unit and/or counseling patient: <Melissa Mccray A - Last Filed: 08/09/18 20:56> Date of Encounter: 08/09/18 Internal Medicine - H&P: HPI History of present illness: Mr. Thompson is a 62 year old male All Systems PM: A 10-system review of systems was performed and is negative for pertinent findings except as documented above in the HPI. - Constitutional Vitals: Temp Pulse Resp BP Pulse Ox 100.2 F H 102 20 142/78 94 08/09/18 19:06 08/09/18 19:06 08/09/18 19:50 08/09/18 19:50 08/09/18 19:50 Internal Med - H&P Results - ABG Interpretation ABG results: 08/09/18 18:32 ABG pH 7.38 D ABG pCO2 85 H* D ABG pO2 59 L ABG HCO3 50 H ABG Total CO2 53 H ABG O2 Saturation 87 L ABG Base Excess 20 H - Assessment and plan (1) Acute exacerbation of chronic obstructive airways disease Current Visit: No Status: Acute (2) Hypertension Current Visit: No Status: Chronic Qualifiers: Hypertension type: essential hypertension Qualified Code(s): I10 - Essential (primary) hypertension (3) IDDM (insulin dependent diabetes mellitus) Current Visit: No Status: Chronic (4) DVT prophylaxis Current Visit: No Status: Acute (5) Acute and chronic respiratory failure Current Visit: Yes Status: Acute Qualifiers: Respiratory failure complication: hypoxia and hypercapnia Qualified Code(s) : J96.21 - Acute and chronic respiratory failure with hypoxia; J96.22 - Acute and chronic respiratory failure with hypercapnia (6) Aspiration pneumonia Current Visit: Yes Status: Acute Qualifiers: Aspiration pneumonia type: due to vomit Laterality: unspecified laterality Lung location: unspecified part of lung Qualified Code(s): J69.0 - Pneumonitis due to inhalation of food and vomit (7) Cirrhosis Current Visit: Yes Status: Acute Qualifiers: Hepatic cirrhosis type: unspecified hepatic cirrhosis Ascites presence: without ascites Qualified Code(s): K74.60 - Unspecified cirrhosis of liver (8) Seizure disorder Current Visit: Yes Status: Acute - Time Spent With Patient Total time spent is greater than 50% in coordination of care (as documented) at patient's floor/unit and/or counseling patient: - Attending Attestation Patient seen and examined. Case discussed with resident. Agree with assessment and plan. Patient appears to be improving on BiPAP as evidenced by most recent ABGs. Continue antibiotic coverage for possible aspiration pneumonia. We will continue on BiPAP overnight. NPO. Follow-up labs. Consider pulmonary consult if symptoms do not improve.
[2018-08-09] MEDS: levETIRAcetam 250 MG TABLET PO SCH (21:13)
[2018-08-09] MEDS: OXYCODONE Oral CONC 10 MG/0.5 ML ORAL.SYG SL PRN (21:14)
[2018-08-09] MEDS: Budesonide/Formoterol 80/4.5 MDI IH SCH (22:17)
[2018-08-09] MEDS: Ipratropium/Albuterol Neb 3 ML IH SCH (22:17)
[2018-08-10] MEDS ORDERED: hydrOXYzine pamoate 25 MG CAPSULE PO PRN (00:09)
[2018-08-10] MEDS: Ipratropium/Albuterol Neb 3 ML IH SCH ×7 (00:09→23:01)
[2018-08-10] MEDS: methylPREDNISolone 125 MG/2 ML VIAL IVP SCH ×3 (00:20→16:07)
[2018-08-10] MEDS: Insulin LISPRO 300 UNITS/3 ML VIAL SQ SCH ×4 (00:21→17:25)
[2018-08-10] MEDS: OXYCODONE Oral CONC 10 MG/0.5 ML ORAL.SYG SL PRN ×5 (03:38→21:17)
[2018-08-10 04:41] LABS: Basophils % 0.2 %; Hemoglobin 10.4 g/dL (12.9-16.9); Immature Granulocytes % 0.2 % (0-4); Lymphocytes # 0.5 K/mcL (0.6-4.6); Lymphocytes % 12.1 %; Mean Corpuscular HGB Conc 30.6 g/dL (31.6-35.5); Mean Corpuscular Hemoglobin 26.7 pg (28.0-33.3); Mean Corpuscular Volume 87.4 fL (83.0-100.0); Monocytes # 0.1 K/mcL (0.0-1.3); Monocytes % 1.5 %; Neutrophils # 3.6 K/mcL (1.6-8.9); Platelet Count 147 K/mcL (140-400); Red Blood Count 3.89 M/mcL (4.19-5.50)
[2018-08-10 05:07] LABS: BUN/Creatinine Ratio 20 (6-26); Blood Urea Nitrogen 15 mg/dL (8-23); Calcium 9.1 mg/dL (8.6-10.3); Carbon Dioxide 42 mEq/L (23-29); Chloride 89 mEq/L (98-107); Glucose 287 mg/dL (70-105); Magnesium 1.7 mg/dL (1.6-2.6); Osmolality,Calculated 295 (280-300); Potassium 3.9 mEq/L (3.5-5.1); Sodium 137 mEq/L (136-145); eGFR For Non-African Americans > 60 (> 60)
[2018-08-10] MEDS: *HR* Enoxaparin 40 MG/0.4 ML SYRINGE SQ SCH (05:57)
[2018-08-10] MEDS: Aspirin 81 MG TAB.CHEW PO SCH (07:54)
[2018-08-10] MEDS: levETIRAcetam 250 MG TABLET PO SCH ×2 (07:54→21:16)
[2018-08-10] MEDS: Budesonide/Formoterol 80/4.5 MDI IH SCH ×2 (07:59→19:43)
[2018-08-10] MEDS ORDERED: Ampicillin/Sulbactam 3,000 MG in 0.9 % Sodium Chloride Mini Bag 100 ML IVPB SCH (08:00)
--- NOTE | 2018-08-10 08:55 | Internal Med Progress Note ---
Hospitalist Progress Note - Encounter Date of Encounter: 08/10/18 Time of Encounter: 08:53 - Subjective Interval History: No complaints, no acute events. Denies fevers/chills, n/v, chest pain. SOB much better. - Exam Vitals: Temp Pulse Resp BP Pulse Ox 97.9 F 77 16 129/73 94 08/10/18 03:08 08/10/18 03:08 08/10/18 08:03 08/10/18 03:08 08/10/18 08:03 Exam: Gen: NAD CVS: RRR Lungs: decreased breath sounds, + faint wheezing bilaterally Ext: No edema . - Assessment and Plan (1) Acute and chronic respiratory failure Current Visit: Yes Status: Acute Assessment and Plan: Secondary to aspiration and acute exacerbation of COPD. Upon arrival to the emergency room patient had a respiratory acidosis PCO2 of 108. He is placed on BiPAP and has responded well. PH has normalized and PCO2 is in the 80s which is likely his baseline. Continue BiPAP as needed with breaks allowed. Continue oxygen supplementation to maintain saturation greater than 89%. Patient should continue with BiPAP when sleeping. (2) Acute exacerbation of chronic obstructive airways disease Current Visit: No Status: Acute Assessment and Plan: Likely secondary to aspiration. On exam patient appears extremely diminished with minimal air movement. Oxygenation and ventilation acceptable on noninvasive ventilation. Continue scheduled DuoNeb's, Patient received one-time dose of Solu-Medrol 125 mg in route to the emergency department. Taper Solu Medrol De escalate Unasyn to Augmentin today while covering for aspiration (3) Hypertension Current Visit: No Status: Chronic Assessment and Plan: Blood pressure mildly elevated but stable this time. We will continue to monitor. (4) IDDM (insulin dependent diabetes mellitus) Current Visit: No Status: Chronic Assessment and Plan: Blood sugar elevated at 219 on presentation. Currently in 300s Patient has a history of diabetes and uses insulin at home. Advance diet and continue ISS if cleared by ST (5) DVT prophylaxis Current Visit: No Status: Acute Assessment and Plan: Lovenox 40 mg subcutaneous daily. (6) Aspiration pneumonia Current Visit: Yes Status: Acute Assessment and Plan: Patient had an aspiration event with lactulose that precipitated his acute exacerbation of COPD as discussed above. Upon arrival patient has a temperature of 100.2, concern for developing aspiration pneumonia. Patient received Unasyn 3 g in the emergency department, [facility] pending Change abx to augmentin today (7) Cirrhosis Current Visit: Yes Status: Acute Assessment and Plan: Per report patient had a significant drinking history when he was younger. Likely cause of his cirrhosis. Patient is alert and oriented and mentating appropriately. Ammonia mildly elevated at 58 but otherwise patient is stable. We will hold lactulose at this time given concern for aspiration until he can be evaluated by speech therapy and then we will continue. (8) Seizure disorder Current Visit: Yes Status: Acute Assessment and Plan: History of. No evidence of seizure activity. Continue Keppra. - Time Spent with Patient Total time spent is greater than 50% in coordination of care (as documented) at patient's floor/unit and/or counseling patient: Internal Medicine: Result - Labs CBC & Chem 7: 08/10/18 04:06 08/10/18 04:06 Labs: Short CBC 08/10/18 Range/Units 04:06 WBC 4.1 L (4.3-11.1) K/mcL Hgb 10.4 L (12.9-16.9) g/dL Hct 34.0 L (37.5-50.1) % Plt Count 147 (140-400) K/mcL Neutrophils # 3.6 (1.6-8.9) K/mcL BMP 08/10/18 04:06 Sodium 137 Potassium 3.9 Chloride 89 L Carbon Dioxide 42 H* BUN 15 Creatinine 0.74 Glucose 287 H Calcium 9.1 - ABG Interpretation ABG results: ABG ABG pH 7.38 pH Units (7.32-7.45) D 08/09/18 18:32 ABG pCO2 85 mmHg (35-45) H* D 08/09/18 18:32 ABG pO2 59 mmHg (85-104) L 08/09/18 18:32 ABG O2 Saturation 87 % (95-98) L 08/09/18 18:32 (1) Acute and chronic respiratory failure Qualifiers: Respiratory failure complication: hypoxia and hypercapnia Qualified Code(s): J96.21 - Acute and chronic respiratory failure with hypoxia; J96.22 - Acute and chronic respiratory failure with hypercapnia (3) Hypertension Qualifiers: Hypertension type: essential hypertension Qualified Code(s): I10 - Essential (primary) hypertension (6) Aspiration pneumonia Qualifiers: Aspiration pneumonia type: due to vomit Laterality: unspecified laterality Lung location: unspecified part of lung Qualified Code(s): J69.0 - Pneumonitis due to inhalation of food and vomit (7) Cirrhosis Qualifiers: Hepatic cirrhosis type: unspecified hepatic cirrhosis Ascites presence: without ascites Qualified Code(s): K74.60 - Unspecified cirrhosis of liver
[2018-08-10] MEDS ORDERED: Insulin DETEMIR 100 UNIT/ML X5UNITS SQ ONE (08:57)
[2018-08-10] MEDS: Lactulose Oral Soln 20 GM/30 ML UDC PO SCH ×2 (16:07→21:16)
[2018-08-10] MEDS ORDERED: Insulin DETEMIR 100 UNIT/ML X5UNITS SQ SCH (21:00)
[2018-08-10] MEDS ORDERED: Insulin LISPRO 300 UNITS/3 ML VIAL SQ SCH (21:00)
[2018-08-11] MEDS: methylPREDNISolone 125 MG/2 ML VIAL IVP SCH (00:22)
[2018-08-11] MEDS: Ipratropium/Albuterol Neb 3 ML IH SCH ×3 (03:29→11:23)
[2018-08-11] MEDS: OXYCODONE Oral CONC 10 MG/0.5 ML ORAL.SYG SL PRN ×2 (03:32→08:31)
[2018-08-11] MEDS: *HR* Enoxaparin 40 MG/0.4 ML SYRINGE SQ SCH (05:41)
[2018-08-11] MEDS: Budesonide/Formoterol 80/4.5 MDI IH SCH (07:50)
[2018-08-11] MEDS: Lactulose Oral Soln 20 GM/30 ML UDC PO SCH (08:29)
[2018-08-11] MEDS: levETIRAcetam 250 MG TABLET PO SCH (08:31)
[2018-08-11] MEDS: Aspirin 81 MG TAB.CHEW PO SCH (08:31)
[2018-08-11] MEDS: Insulin LISPRO 300 UNITS/3 ML VIAL SQ SCH ×2 (08:40→11:30)
--- NOTE | 2018-08-11 09:28 | Discharge Summary ---
Orders not resulted at time of discharge: Pending orders 08/09/18 20:41 Culture,Blood [BC] Routine Date of Encounter: 08/11/18 Time of Encounter: 09:24 - Discharge Diagnosis (1) Acute and chronic respiratory failure Priority: Primary Status: Acute Qualifiers: Respiratory failure complication: hypoxia and hypercapnia Qualified Code(s) : J96.21 - Acute and chronic respiratory failure with hypoxia; J96.22 - Acute and chronic respiratory failure with hypercapnia (2) Acute exacerbation of chronic obstructive airways disease Priority: Secondary Status: Acute (3) Hypertension Priority: Secondary Status: Chronic Qualifiers: Hypertension type: essential hypertension Qualified Code(s): I10 - Essential (primary) hypertension (4) IDDM (insulin dependent diabetes mellitus) Priority: Secondary Status: Chronic (5) DVT prophylaxis Priority: Secondary Status: Acute (6) Aspiration pneumonia Priority: Secondary Status: Acute Qualifiers: Aspiration pneumonia type: due to vomit Laterality: unspecified laterality Lung location: unspecified part of lung Qualified Code(s): J69.0 - Pneumonitis due to inhalation of food and vomit (7) Cirrhosis Priority: Secondary Status: Acute Qualifiers: Hepatic cirrhosis type: unspecified hepatic cirrhosis Ascites presence: without ascites Qualified Code(s): K74.60 - Unspecified cirrhosis of liver (8) Seizure disorder Priority: Secondary Status: Acute Hospital course: Mr. Thompson is a 62 year old male with history of COPD, MAITE, type 2 diabetes, cirrhosis, seizure disorder presents with shortness of breath. Patient states that early in the day he was taking his lactulose and it "went down the wrong pipe." This caused him severe coughing and shortness of breath. Because of this he presented to the emergency department. According to his his pulse oxygenation dropped at this time as well. He was transferred to emergency department and per records and felt better upon arrival to the emergency department. He states that before this episode he was feeling well in his normal state of health. In the ED he did need increase of oxygen to 5 L nasal cannula which he is on 4L at home. Respiratory stress improved. He was started on Unasyn for aspiration pneumonia and Solu Medrol for COPD exacerbation. Speech therapy evaluated patient and he was okay to resume his normal diet. Patient respiratory status improved. He was discharged home to complete 5 day burst of Prednisone and Augmentin. - Time Spent with Patient Total time spent providing and/or coordinating discharge services: - Discharge Medications Prescriptions: Amoxicillin/Clavulanate [Augmentin] 875 mg PO BIDWM #12 tablet Home Medications: Cholecalciferol (Vitamin D3) [Vitamin D3] 1,000 unit PO BID 03/15/16 [History] Magnesium 400 mg PO BID 03/15/16 [History] Budesonide/Formoterol 80/4.5 [Symbicort 80/4.5] 2 puff IH BIDR #2 inhaler 03/17 [Rx] Cyanocobalamin (Vitamin B-12) [Vitamin B12] 1,000 mcg PO BID 04/03/17 [History] Loratadine [Allergy Relief] 10 mg PO DAILY 04/03/17 [History] Omeprazole 20 mg PO DAILY 04/03/17 [History] Aspirin 81 mg PO DAILY tab.chew 09/05/17 [Rx] Atorvastatin [Lipitor] 40 mg PO HS tablet 09/05/17 [Rx] levETIRAcetam [Keppra] 250 mg PO Q12H 10/26/17 [History] Furosemide [Lasix] 20 mg PO DAILY PRN #30 tablet 12/19/17 [Rx] Memantine HCl 10 mg PO BID 02/24/18 [History] Oxycodone HCl [Oxaydo] 5 mg PO Q6H 02/24/18 [History] Docusate Sodium [Stool Softener] 50 mg PO HS 08/09/18 [History] Insulin ASPART [Novolog Flexpen] 5 - 10 unit SQ TIDWM 08/09/18 [History] Insulin DETEMIR [Levemir] 30 unit SQ BID 08/09/18 [History] Ipratropium/Albuterol Sulfate [Combivent Respimat Inhal [place]] 1 puff IH Q6H PRN 08/09/18 [History] Lactulose 10 gm PO Q8HR 08/09/18 [History] Losartan [Cozaar] 25 mg PO DAILY 08/09/18 [History] Metoprolol [Lopressor] 50 mg PO TID 08/09/18 [History] Potassium Chloride [K-Tab ER] 20 meq PO DAILY 08/09/18 [History] Sertraline [Zoloft] 50 mg PO DAILY 08/09/18 [History] hydrOXYzine HCl [Hydroxyzine HCl] 25 mg PO HS 08/09/18 [History] Amoxicillin/Clavulanate [Augmentin] 875 mg PO BIDWM #12 tablet 08/11/18 [Rx] PredniSONE [Deltasone] 60 mg PO DAILY #9 tablet 08/11/18 [Rx] Allergies/Adverse Reactions: 3 Allergy/AdvReac Type Severity Reaction Status Date / Time No Known Allergies Allergy Verified 03/15/16 17:09 Date of admission: 08/09/18 17:55 Primary care physician: PCP NONE Consults: 08/09/18 18:49 Consult to Nutrition [CONS] Routine Comment: Consulting Provider: NUTRITION Reason for Dietary Consult: MST Score Discharging clinician: Noel Wooten - Constitutional Vitals: Temp Pulse Resp BP Pulse Ox 98 F 72 16 109/64 95 08/11/18 07:00 08/11/18 07:00 08/11/18 07:50 08/11/18 07:00 08/11/18 07:50 General appearance: Present: A&O X 3, no acute distress Exam: Gen: NAD CVS: RRR Lungs: decreased breath sounds, + faint wheezing bilaterally Ext: No edema . - Patient Status Disposition: Home, Self-Care Condition: Good Functional capacity at discharge: independent ambulation Overall status at discharge: patient is back to baseline - Discharge Instructions Follow Up With: NONE,PCP [Primary Care Provider] - - Diet and Activity Activity: increase activity as tolerated Diet: advance to your usual diet
[2018-08-11 11:16] VITALS: BP 133/60
== END 2018-08-11 12:21 | disposition home or self-care (01) | DRG 177 ==
LOC: 2NNU 17:55
PROVIDERS: ADMIT Internal Medicine; ATTEND Internal Medicine

== ENCOUNTER 2018-10-07 00:03 | Inpatient (IN) ==
[2018-10-07] MEDS ORDERED: Furosemide 40 MG/4 ML VIAL IVP ONE (03:16)
[2018-10-07] MEDS ORDERED: Dextrose Gel 15 GM/37.5 ML TUBE PO PRN ×2 (03:23)
[2018-10-07] MEDS: Ipratropium/Albuterol Neb 3 ML IH SCH ×4 (04:06→15:55)
[2018-10-07 04:10] LABS: Basophils % 0.3 %; Eosinophils # 0.1 K/mcL (0.0-0.6); Eosinophils % 0.9 %; Hematocrit 36.2 % (37.5-50.1); Hemoglobin 10.8 g/dL (12.9-16.9); Immature Granulocytes % 0.4 % (0-4); Lymphocytes # 0.9 K/mcL (0.6-4.6); Lymphocytes % 11.2 %; Mean Corpuscular HGB Conc 29.8 g/dL (31.6-35.5); Mean Corpuscular Hemoglobin 27.4 pg (28.0-33.3); Mean Corpuscular Volume 91.9 fL (83.0-100.0); Mean Platelet Volume 10.3 fL (9.4-12.4); Monocytes # 0.6 K/mcL (0.0-1.3); Monocytes % 8.3 %; Neutrophils # 6.1 K/mcL (1.6-8.9); Platelet Count 141 K/mcL (140-400); Red Blood Count 3.94 M/mcL (4.19-5.50); Red Cell Distribution Width 14.7 % (11.5-14.5); Segmented Neutrophils % 78.9 %
[2018-10-07] MEDS: MethylPREDNISolone 40 MG/ML VIAL IVP SCH ×3 (04:23→21:29)
[2018-10-07] MEDS: levETIRAcetam 250 MG TABLET PO SCH ×2 (04:25→14:53)
--- NOTE | 2018-10-07 04:27 | Internal Med History&Physical ---
<Hernando Pacheco Natacha - Last Filed: 10/07/18 05:44> Date of Encounter: 10/07/18 Time of Encounter: 03:50 Internal Medicine - H&P: HPI Chief complaint: shortness of breath Admitted From: Home History of present illness: Mr. Thompson is a 62 year old male with past medical hx of COPD, MAITE, DM2, cirrhosis, CHF, and seizure disorder. He presented originally to [facility] yesterday evening for shortness of breath and confusion. It was reported, via the pt's , that the pt has been having difficulty with breathing for approximately 3 days and has been increasingly confused. She also states he has been non-compliant with his BiPAP while sleeping. Pt's called EMS today when pt became unresponsive. Pt was placed on BiPAP at [facility] ED and mentation was reported to improve. During the encounter with this provider, the pt remains grossly obtunded. He is responsive to voice, but will not answer any questions or follow commands. Pt's is not present at this time. Per chart review from [facility] ED, the pt's also reported difficulty urinating, no complaints of pain, and no vomiting or diarrhea. UA from [facility] was only positive for small blood. Past Med Surg Social Fam HX - Past Medical History Medical history: cirrhosis, CHF, COPD, coronary artery disease, diabetes, hepatitis, hyperlipidemia, hypertension, liver disease, myocardial infarction, other Additional medical history: chronic back pain, hepatitis C Psychiatric history: anxiety, depression - Past Surgical History Surgical History: cholecystectomy, orthopedic, other Additional surgical history: stent in gallbladder/liver stent, hemerrhoid surgery - Social History Smoking Status: Former smoker Smokeless Tobacco Status: No Alcohol use: none Drug use: none - Family History Father Living Status: Still Living Hx Family Cardiac Disorders: Yes ([place], CABG) Hx Family Endocrine Disorder: Yes (DM) Mother Living Status: Still Living Hx Family Endocrine Disorder: Yes (DM) Internal Medicine - H&P: Meds RX: Cholecalciferol (Vitamin D3) [Vitamin D3] 1,000 unit PO BID 03/15/16 [History] RX: Magnesium 400 mg PO BID 03/15/16 [History] RX: Budesonide/Formoterol 80/4.5 [Symbicort 80/4.5] 2 puff IH BIDR #2 inhaler 03/17/16 [Rx] RX: Cyanocobalamin (Vitamin B-12) [Vitamin B12] 1,000 mcg PO BID 04/03/17 [History] RX: Loratadine [Allergy Relief] 10 mg PO DAILY 04/03/17 [History] RX: Omeprazole 20 mg PO DAILY 04/03/17 [History] RX: Aspirin 81 mg PO DAILY tab.chew 09/05/17 [Rx] RX: Atorvastatin [Lipitor] 40 mg PO HS tablet 09/05/17 [Rx] RX: levETIRAcetam [Keppra] 250 mg PO Q12H 10/26/17 [History] RX: Furosemide [Lasix] 20 mg PO DAILY PRN #30 tablet 12/19/17 [Rx] RX: Memantine HCl 10 mg PO BID 02/24/18 [History] RX: Oxycodone HCl [Oxaydo] 5 mg PO Q6H 02/24/18 [History] RX: Docusate Sodium [Stool Softener] 50 mg PO HS 08/09/18 [History] RX: Insulin ASPART [Novolog Flexpen] 5 - 10 unit SQ TIDWM 08/09/18 [History] RX: Insulin DETEMIR [Levemir] 30 unit SQ BID 08/09/18 [History] RX: Ipratropium/Albuterol Sulfate [Combivent Respimat Inhal [place]] 1 puff IH Q6H PRN 08/09/18 [History] RX: Lactulose 10 gm PO Q8HR 08/09/18 [History] RX: Losartan [Cozaar] 25 mg PO DAILY 08/09/18 [History] RX: Metoprolol [Lopressor] 50 mg PO TID 08/09/18 [History] RX: Potassium Chloride [K-Tab ER] 20 meq PO DAILY 08/09/18 [History] RX: Sertraline [Zoloft] 50 mg PO DAILY 08/09/18 [History] RX: hydrOXYzine HCl [Hydroxyzine HCl] 25 mg PO HS 08/09/18 [History] RX: PredniSONE [Deltasone] 60 mg PO DAILY #9 tablet 08/11/18 [Rx] Allergy/AdvReac Type Severity Reaction Status Date / Time No Known Allergies Allergy Verified 03/15/16 17:09 ROS unobtainable: due to mental status All Systems PM: A 10-system review of systems was performed and is negative for pertinent findings except as documented above in the HPI. - Constitutional Vitals: Temp Pulse Resp BP Pulse Ox 99.8 F H 81 16 133/53 95 10/07/18 02:52 10/07/18 02:52 10/07/18 04:07 10/07/18 02:52 10/07/18 04:07 General appearance: Present: A&O X 0, mild distress. Absent: cooperative, answers questions appropriately Exam: General: well developed and well nourished male. Mild distress. Head: normocephalic and atraumatic Eyes: PERRL, EOMI, sclera anicteric, conjunctiva pink Neck: supple, trachea midline Lungs: grossly diminished breath sounds. No wheezes, rales, or rhonchi appreciated. Mildly labored breathing on BiPAP Heart: RRR +s1 +S2. No murmurs, clicks, or rubs noted Abdomen: soft, pt does grimace when palpating abdomen with some diffuse guarding, mild distention. no masses. normoactive bowel sounds Extremities: warm, radial pulses palpable and symmetrical. No edema or cyanosis. Neuro: Lethargic, responds to voice. Does not answer questions. Skin: warm, dry, intact Internal Med - H&P Results - Labs CBC & Chem 7: 10/07/18 03:50 10/07/18 03:50 Labs: Short CBC 10/07/18 Range/Units 03:50 WBC 7.7 (4.3-11.1) K/mcL Hgb 10.8 L (12.9-16.9) g/dL Hct 36.2 L (37.5-50.1) % Plt Count 141 (140-400) K/mcL Neutrophils # 6.1 (1.6-8.9) K/mcL - Assessment and plan (1) Acute and chronic respiratory failure with hypercapnia Current Visit: Yes Status: Acute Assessment and plan: likely 2/2 non-compliance Mildly elevated temp at 99.8, but HR wnl, tachypnea related to respiratory failure, and WBC normal at 7.7 No reported complaints of increased cough or increased sputum production Continue BiPAP Scheduled duonebs Solumedrol 40mg q8hr (2) Altered mental status Current Visit: Yes Status: Acute Assessment and plan: likely 2/2 respiratory failure as above Qualifiers: Altered mental status type: unspecified Qualified Code(s): R41.82 - Altered mental status, unspecified (3) 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, type II Current Visit: Yes Status: Chronic Assessment and plan: ADA diet when mentation has improved ACHS accuchecks SSI Qualifiers: 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 mcfp insulin use: with mcfp use 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 complication status: with circulatory complication 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 complication detail: with other circulatory complications Qualified Code(s): E11.59 - Type 2 diabetes mellitus with other circulatory complications; Z79.4 - motorboat mechanic inboard/outboard (current) use of insulin; Z79.4 - motorboat mechanic inboard/outboard (current) use of insulin; Z79.4 - motorboat mechanic inboard/outboard (current) use of insulin; Z79.4 - motorboat mechanic inboard/outboard (current) use of insulin (4) Seizure disorder Current Visit: Yes Status: Chronic Assessment and plan: Continue home Keppra (5) DVT prophylaxis Current Visit: Yes Status: Acute Assessment and plan: SQ Heparin (6) Cirrhosis Current Visit: Yes Status: Chronic Assessment and plan: Continue home meds Qualifiers: Hepatic cirrhosis type: unspecified hepatic cirrhosis Ascites presence: without ascites Qualified Code(s): K74.60 - Unspecified cirrhosis of liver - Time Spent With Patient Total time spent is greater than 50% in coordination of care (as documented) at patient's floor/unit and/or counseling patient: <ConnorValdemar - Last Filed: 10/07/18 06:01> Date of Encounter: 10/07/18 Internal Medicine - H&P: HPI History of present illness: Mr. Thompson is a 62 year old male All Systems PM: A 10-system review of systems was performed and is negative for pertinent findings except as documented above in the HPI. - Constitutional Vitals: Temp Pulse Resp BP Pulse Ox 99.8 F H 81 16 133/53 95 10/07/18 02:52 10/07/18 02:52 10/07/18 04:07 10/07/18 02:52 10/07/18 04:07 Internal Med - H&P Results - Labs CBC & Chem 7: 10/07/18 03:50 10/07/18 03:50 Labs: Short CBC 10/07/18 Range/Units 03:50 WBC 7.7 (4.3-11.1) K/mcL Hgb 10.8 L (12.9-16.9) g/dL Hct 36.2 L (37.5-50.1) % Plt Count 141 (140-400) K/mcL Neutrophils # 6.1 (1.6-8.9) K/mcL BMP 10/07/18 03:50 Sodium 141 Potassium 3.6 Chloride 95 L Carbon Dioxide 41 H* BUN 16 Creatinine 0.76 Glucose 157 H Calcium 8.5 L - ABG Interpretation ABG results: 10/07/18 04:27 ABG pH 7.35 ABG pCO2 87 H* ABG pO2 70 L ABG HCO3 48 H ABG Total CO2 > 50 H ABG O2 Saturation 92 L ABG Base Excess 19 H - Assessment and plan (1) 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, type II Current Visit: Yes Status: Chronic Qualifiers: 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 glass edger insulin use: with glass edger use 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 complication status: with circulatory complication 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 complication detail: with other circulatory complications Qualified Code(s): E11.59 - Type 2 diabetes mellitus with other circulatory complications; Z79.4 - motorboat mechanic inboard/outboard (current) use of insulin; Z79.4 - motorboat mechanic inboard/outboard (current) use of insulin; Z79.4 - senior living (current) use of insulin; Z79.4 - senior living (current) use of insulin (2) DVT prophylaxis Current Visit: Yes Status: Acute (3) Seizure disorder Current Visit: Yes Status: Chronic (4) Acute and chronic respiratory failure with hypercapnia Current Visit: Yes Status: Acute (5) Altered mental status Current Visit: Yes Status: Acute Qualifiers: Altered mental status type: unspecified Qualified Code(s): R41.82 - Altered mental status, unspecified (6) Cirrhosis Current Visit: Yes Status: Chronic Qualifiers: Hepatic cirrhosis type: unspecified hepatic cirrhosis Ascites presence: without ascites Qualified Code(s): K74.60 - Unspecified cirrhosis of liver - Time Spent With Patient Total time spent is greater than 50% in coordination of care (as documented) at patient's floor/unit and/or counseling patient: - Attending Attestation I performed a history and physical exam of the patient and discussed management with the resident. I reviewed the resident's note and agree with the documented findings and plan of care. Bhavesh Thompson is a 62 year old man with severe COPD, oxygen dependent on 4L at home who has been non-compliant with Bipap at night as per his and now became more obtunded with elements of confusion associated with difficulty breathing. Today he became more unresponsive and she called [facility]. In the ER he was promptly placed on Bipap and his mental sta tus gradually improved. He was also given a dose of ceftriaxone there because of a febrile episode noted. Here he reports feeling much better and has no complaints. He denies productive cough, chest pain, chills. Physical exam remarkable for a well-developed white man in NAD, AAO x 3, affect appropriate, diminished breath sounds bilaterally but no wheezing, rales or rhonchi, abdomen soft and non-tender, 1+ pitting LE edema. Will admit for acute encephalopathy due to acute hypercarbic respiratory failure secondary to COPD exacerbation triggered by non-adherence to therapy. Place on IV steroids for now then switch to PO. Continue NIPPV and duonebs. Follow blood cultures drawn at [facility]. Monitor for febrile recurrence. UA not suggestive of infection and CXR shows chronic changes but no consolidation. DVT prophylaxis indicated. Resume home meds. TAYLOR HIGH.
[2018-10-07 04:30] LABS: ABG Base Excess 19 mEq/L (-2 to 3); ABG HCO3 48 mEq/L (21-27); ABG Oxygen Saturation 92 % (95-98); ABG PCO2 87 mmHg (35-45); ABG PH 7.35 pH Units (7.32-7.45); ABG PO2 70 mmHg (85-104); ABG TCO2 > 50 mEq/L (20-26); Blood Gas PEEP 9 cm H2O
[2018-10-07 04:32] LABS: BUN/Creatinine Ratio 21 (6-26); Blood Urea Nitrogen 16 mg/dL (8-23); Calcium 8.5 mg/dL (8.6-10.3); Carbon Dioxide 41 mEq/L (23-29); Chloride 95 mEq/L (98-107); Glucose 157 mg/dL (70-105); Osmolality,Calculated 296 (280-300); Potassium 3.6 mEq/L (3.5-5.1); Sodium 141 mEq/L (136-145); eGFR For Non-African Americans > 60 (> 60)
[2018-10-07] MEDS: Insulin LISPRO 300 UNITS/3 ML VIAL SQ SCH ×4 (06:23→21:27)
[2018-10-07] MEDS: Loratadine 10 MG TABLET PO SCH (07:29)
[2018-10-07] MEDS: Magnesium Oxide 400 MG TABLET PO SCH ×2 (07:29→21:30)
[2018-10-07] MEDS: Cholecalciferol (D-3) 1,000 UNIT TABLET PO SCH (07:29)
[2018-10-07] MEDS: Aspirin 81 MG TAB.CHEW PO SCH (07:30)
[2018-10-07] MEDS: *HR* Heparin 5,000 UNIT/ML VIAL SQ SCH ×2 (07:30→14:53)
[2018-10-07] MEDS: Budesonide/Formoterol 80/4.5 MDI IH SCH ×2 (07:50→22:51)
--- NOTE | 2018-10-07 08:33 | Event Note ---
Date of Encounter: 10/07/18 Time of Encounter: 09:15 H&P generated by resident and admitting physician today 10/07 419 Event note by day team: S: Patient seen and evaluated at bedside. He reports some pain in his low back, chronic. He denies fevers, shortness of breath, chest pain, or abdominal pain. He admits to limited bipap use at home. Admission history: Mr. Thompson is a 62 year old male with past medical hx of COPD, MAITE, DM2, cirrhosis, CHF, and seizure disorder. He presented originally to [facility] yesterday evening for shortness of breath and confusion. It was reported, via the pt's , that the pt has been having difficulty with breathing for approximately 3 days and has been increasingly confused. She also states he has been non-compliant with his BiPAP while sleeping. Pt's called EMS today when pt became unresponsive. Pt was placed on BiPAP at [facility] ED and mentation was reported to improve. O: General: well developed and well nourished male. No distress. Head: normocephalic and atraumatic Eyes: EOMI, sclera anicteric, conjunctiva pink Neck: supple, trachea midline Lungs: grossly diminished breath sounds. No wheezes, rales, or rhonchi appreciated. fair chest wall excursion, on hi-leoncio NC Heart: RRR +s1 +S2. No murmurs, clicks, or rubs noted Abdomen: soft, nontender, nondistended, central obesity Extremities: warm, radial pulses palpable and symmetrical. No edema or cyanosis. Neuro: Lethargic, responds to voice. Does not answer questions. Skin: warm, dry, intact A/P: 1. Acute and chronic respiratory failure with hypercapnia likely 2/2 non-compliance Continue BiPAP/hiflo NC Scheduled duonebs Solumedrol 40mg q8hr 2. Altered mental status More cooperative, more alert today, nursing reports periods where he rips off his pulse ox and walks around Had temporary sitter, currently agreeable to pulse ox, says he is a little nervous, he is saturating well during exam Monitor for now, avoiding meds that will depress respirations 3. 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, type II ADA diet today ACHS accuchecks SSI 4. Seizure disorder Continue home Keppra No seizures for years per patient 5. DVT prophylaxis SQ Heparin
[2018-10-07] MEDS ORDERED: predniSONE 20 MG TABLET PO SCH (09:00)
[2018-10-07] MEDS: *HR* OxyCODONE/APAP 5/325 TABLET PO PRN (14:53)
[2018-10-07] MEDS: hydrOXYzine pamoate 25 MG CAPSULE PO SCH (21:29)
[2018-10-07] MEDS: Docusate Oral Soln 100 MG/10 ML UDC PO SCH (21:29)
[2018-10-08] MEDS: *HR* Heparin 5,000 UNIT/ML VIAL SQ SCH ×4 (00:06→23:50)
[2018-10-08] MEDS: *HR* OxyCODONE/APAP 5/325 TABLET PO PRN ×3 (00:06→23:51)
[2018-10-08] MEDS: levETIRAcetam 250 MG TABLET PO SCH ×2 (04:22→15:12)
[2018-10-08 04:26] LABS: Hematocrit 35.8 % (37.5-50.1); Hemoglobin 11.3 g/dL (12.9-16.9); Immature Granulocytes % 0.3 % (0-4); Lymphocytes # 0.7 K/mcL (0.6-4.6); Mean Corpuscular HGB Conc 31.6 g/dL (31.6-35.5); Mean Corpuscular Hemoglobin 27.3 pg (28.0-33.3); Mean Corpuscular Volume 86.5 fL (83.0-100.0); Mean Platelet Volume 10.5 fL (9.4-12.4); Monocytes # 0.1 K/mcL (0.0-1.3); Monocytes % 2.2 %; Neutrophils # 5.2 K/mcL (1.6-8.9); Platelet Count 149 K/mcL (140-400); Red Blood Count 4.14 M/mcL (4.19-5.50); Red Cell Distribution Width 14.3 % (11.5-14.5); Segmented Neutrophils % 86.5 %
[2018-10-08 04:51] LABS: BUN/Creatinine Ratio 27 (6-26); Blood Urea Nitrogen 20 mg/dL (8-23); Calcium 8.9 mg/dL (8.6-10.3); Carbon Dioxide 41 mEq/L (23-29); Chloride 92 mEq/L (98-107); Glucose 293 mg/dL (70-105); Osmolality,Calculated 299 (280-300); Potassium 3.7 mEq/L (3.5-5.1); Sodium 138 mEq/L (136-145); eGFR For Non-African Americans > 60 (> 60)
[2018-10-08] MEDS: MethylPREDNISolone 40 MG/ML VIAL IVP SCH ×2 (06:43→17:09)
[2018-10-08] MEDS: Budesonide/Formoterol 80/4.5 MDI IH SCH ×2 (07:56→20:17)
--- NOTE | 2018-10-08 08:03 | Internal Med Progress Note ---
<Chad Medina - Last Filed: 10/08/18 11:28> Hospitalist Progress Note - Encounter Date of Encounter: 10/08/18 Time of Encounter: 08:45 - Subjective Interval History: 10/08 Patient had a fairly good night's sleep he is been slow to wean off high flow nasal cannula, bouts of confusion seemingly interrelated to oxygenation yesterd ay, cooperative when having [id number] encounter, encouraged transfer from bed to chair with more hours in chair and bed today with goal of continued weaning to his baseline of 4 L if possible. He denies shortness of breath chest pain abdominal pain fever nausea vomiting. 10/07 Patient seen and evaluated at bedside. He reports some pain in his low back, chronic. He denies fevers, shortness of breath, chest pain, or abdominal pain. He admits to limited bipap use at home. Admission history: Mr. Thompson is a 62 year old male with past medical hx of COPD, MAITE, DM2, cirrhosis, CHF, and seizure disorder. He presented originally to [place] yesterday evening for shortness of breath and confusion. Baseline home O2 needs: at least 4L NC and night bipap. Pt has been having difficulty with breathing for approximately 3 days and has been increasingly confused. She also states he has been non-compliant with his BiPAP while sleeping. Pt's called EMS today when pt became unresponsive. Pt was placed on BiPAP at [place] ED and mentation was reported to improve. Then transferred to [facility]. - Exam Vitals: Temp Pulse Resp BP Pulse Ox 97.8 F 65 18 111/55 100 10/08/18 06:51 10/08/18 06:51 10/08/18 06:51 10/08/18 06:51 10/08/18 06:51 Exam: General: well developed and well nourished male. No acute distress Head: normocephalic and atraumatic Eyes: EOMI, sclera anicteric, conjunctiva pink Neck: supple, trachea midline Lungs: grossly diminished breath sounds. No wheezes, rales, or rhonchi appre ciated. On high flow nasal cannula Heart: RRR +s1 +S2. No murmurs, clicks, or rubs noted Abdomen: soft, nontender no masses. normoactive bowel sounds Extremities: warm, radial pulses palpable and symmetrical. No edema or cyanosis. Neuro: Less lethargic responds to voice. Cooperative on exam follows commands Skin: warm, dry, intact - Assessment and Plan (1) Acute and chronic respiratory failure with hypercapnia Current Visit: Yes Status: Acute Assessment and Plan: Goal to transition from high flow to regular flow home O2 requirements are 4 L at baseline with BiPAP at night Encourage patient to ambulate to chair and sit in chair for more hours and he is sleeping in bed Continue scheduled pulmonary toilet will extend Solu-Medrol 40 mg every 8 to every 12 and transition to by mouth tomorrow in anticipation of discharge (2) Altered mental status Current Visit: No Status: Resolved Assessment and Plan: Likely secondary to respiratory failure as above, has moments of confusion during the day, but overall responds to provider interaction (3) 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, type II Current Visit: Yes Status: Chronic Assessment and Plan: Continue ADA diet and insulin sliding scale (4) DVT prophylaxis Current Visit: No Status: Acute Assessment and Plan: Subcutaneous heparin (5) Seizure disorder Current Visit: Yes Status: Chronic Assessment and Plan: Continuing Keppra denies seizure activity for over 2 years (6) Cirrhosis Current Visit: Yes Status: Chronic Assessment and Plan: Continuing lactulose as per home medication - Time Spent with Patient Total time spent is greater than 50% in coordination of care (as documented) at patient's floor/unit and/or counseling patient: Internal Medicine: Result - Labs CBC & Chem 7: 10/08/18 03:45 10/08/18 03:45 Labs: Short CBC 10/08/18 Range/Units 03:45 WBC 6.0 (4.3-11.1) K/mcL Hgb 11.3 L (12.9-16.9) g/dL Hct 35.8 L (37.5-50.1) % Plt Count 149 (140-400) K/mcL Neutrophils # 5.2 (1.6-8.9) K/mcL BMP 10/08/18 03:45 Sodium 138 Potassium 3.7 Chloride 92 L Carbon Dioxide 41 H* BUN 20 Creatinine 0.73 Glucose 293 H Calcium 8.9 - ABG Interpretation ABG results: ABG ABG pH 7.35 pH Units (7.32-7.45) 10/07/18 04:27 ABG pCO2 87 mmHg (35-45) H* 10/07/18 04:27 ABG pO2 70 mmHg (85-104) L 10/07/18 04:27 ABG O2 Saturation 92 % (95-98) L 10/07/18 04:27 Consult Discharge Plan - Plan [facility]errals: [facility]Primary Care Provider[facility] - <Chailno Moreno - Last Filed: 10/08/18 15:56> Hospitalist Progress Note - Encounter Date of Encounter: 10/08/18 - Exam Vitals: Temp Pulse Resp BP Pulse Ox 97.8 F 55 20 146/76 97 10/08/18 11:44 10/08/18 15:22 10/08/18 15:18 10/08/18 11:44 10/08/18 15:18 - Assessment and Plan (1) 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, type II Current Visit: Yes Status: Chronic (2) DVT prophylaxis Current Visit: Yes Status: Acute (3) Seizure disorder Current Visit: Yes Status: Chronic (4) Acute and chronic respiratory failure with hypercapnia Current Visit: Yes Status: Acute (5) Altered mental status Current Visit: Yes Status: Acute (6) Cirrhosis Current Visit: Yes Status: Chronic (7) COPD (chronic obstructive pulmonary disease) Current Visit: No Status: Acute (8) Hepatitis C Current Visit: No Status: Chronic (9) Hypertension Current Visit: No Status: Chronic (10) Acute and chronic respiratory failure Current Visit: No Status: Acute - Time Spent with Patient Total time spent is greater than 50% in coordination of care (as documented) at patient's floor/unit and/or counseling patient: Internal Medicine: Result - Labs CBC & Chem 7: 10/08/18 03:45 10/08/18 03:45 Labs: Short CBC 10/08/18 Range/Units 03:45 WBC 6.0 (4.3-11.1) K/mcL Hgb 11.3 L (12.9-16.9) g/dL Hct 35.8 L (37.5-50.1) % Plt Count 149 (140-400) K/mcL Neutrophils # 5.2 (1.6-8.9) K/mcL BMP 10/08/18 03:45 Sodium 138 Potassium 3.7 Chloride 92 L Carbon Dioxide 41 H* BUN 20 Creatinine 0.73 Glucose 293 H Calcium 8.9 - ABG Interpretation ABG results: ABG ABG pH 7.35 pH Units (7.32-7.45) 10/07/18 04:27 ABG pCO2 87 mmHg (35-45) H* 10/07/18 04:27 ABG pO2 70 mmHg (85-104) L 10/07/18 04:27 ABG O2 Saturation 92 % (95-98) L 10/07/18 04:27 - Attending Attestation I examined this patient and my medical decision-making was reviewed with the Resident Physician on 10/08/18. I agree with the documented findings, disposition and treatment plan as described except to the extent set forth below. Mr Thompson is currently admitted for acute exac COPD and resp failure. He is still on high flow oxygen. He remains moderate to high risk due to potential for worsening clinical status. Mr Thompson is still on 7 liters high flow. No fever or chills. Still with some intermittent confusion. No GI issues. Wants to get up and move around more. Exam alert Oriented at this time. Comfortable Mucus membranes dry Heart distant and regular Lungs diminished. No wheeze at this time Abd soft No edema I/P 1. Respiratory failure - continue to wean oxygen. Increase activity today. 2. COPD Further diagnoses and plan as above. <Chad Medina - Last Filed: 10/08/18 11:28> (2) Altered mental status Qualifiers: Altered mental status type: disorientation Qualified Code(s): R41.0 - Disorientation, unspecified (3) 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, type II Qualifiers: 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 penitentiary insulin use: with computer terminal operator use 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 complication status: with circulatory complication 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 complication detail: with other circulatory complications Qualified Code(s): E11.59 - Type 2 diabetes mellitus with other circulatory complications; Z79.4 - intermediate manager (current) use of insulin; Z79.4 - intermediate manager (current) use of insulin; Z79.4 - [facility] (current) use of insulin; Z79.4 - intermediate manager (current) use of insulin (6) Cirrhosis Qualifiers: Hepatic cirrhosis type: unspecified hepatic cirrhosis Ascites presence: without ascites Qualified Code(s): K74.60 - Unspecified cirrhosis of liver <Ba Morenojacky Manzano - Last Filed: 10/08/18 15:56> (1) 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, type II Qualifiers: 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 computer terminal operator insulin use: with penitentiary use 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 complication status: with circulatory complication 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 complication detail: with other circulatory complications Qualified Code(s): E11.59 - Type 2 diabetes mellitus with other circulatory complications; Z79.4 - [facility] (current) use of insulin; Z79.4 - [facility] (current) use of insulin; Z79.4 - intermediate manager (current) use of insulin; Z79.4 - [facility] (current) use of insulin (5) Altered mental status Qualifiers: Altered mental status type: unspecified Qualified Code(s): R41.82 - Altered mental status, unspecified (6) Cirrhosis Qualifiers: Hepatic cirrhosis type: other cirrhosis Qualified Code(s): K74.69 - Other ci rrhosis of liver (7) COPD (chronic obstructive pulmonary disease) Qualifiers: COPD type: COPD with acute exacerbation Qualified Code(s): J44.1 - Chronic obstructive pulmonary disease with (acute) exacerbation (8) Hepatitis C Qualifiers: Viral hepatitis chronicity: chronic Hepatic coma status: without hepatic coma Qualified Code(s): B18.2 - Chronic viral hepatitis C (9) Hypertension Qualifiers: Hypertension type: essential hypertension Qualified Code(s): I10 - Essential (primary) hypertension (10) Acute and chronic respiratory failure Qualifiers: Respiratory failure complication: hypoxia and hypercapnia Qualified Code(s): J96.21 - Acute and chronic respiratory failure with hypoxia; J96.22 - Acute and chronic respiratory failure with hypercapnia; J96.22 - Acute and chronic respiratory failure with hypercapnia; J96.22 - Acute and chronic respiratory failure with hypercapnia
[2018-10-08] MEDS: Magnesium Oxide 400 MG TABLET PO SCH ×2 (08:25→20:22)
[2018-10-08] MEDS: Cholecalciferol (D-3) 1,000 UNIT TABLET PO SCH (08:25)
[2018-10-08] MEDS: Loratadine 10 MG TABLET PO SCH (08:25)
[2018-10-08] MEDS: Aspirin 81 MG TAB.CHEW PO SCH (08:25)
[2018-10-08] MEDS: Insulin LISPRO 300 UNITS/3 ML VIAL SQ SCH ×4 (08:32→20:22)
[2018-10-08] MEDS: Lactulose Oral Soln 20 GM/30 ML UDC PO SCH ×2 (15:12→23:51)
[2018-10-08 18:23] LABS: BUN/Creatinine Ratio 25 (6-26); Blood Urea Nitrogen 24 mg/dL (8-23); Calcium 9.2 mg/dL (8.6-10.3); Carbon Dioxide 45 mEq/L (23-29); Chloride 95 mEq/L (98-107); Glucose 177 mg/dL (70-105); Osmolality,Calculated 306 (280-300); Phosphorous 2.2 mg/dL (2.7-4.5); Potassium 3.7 mEq/L (3.5-5.1); Sodium 144 mEq/L (136-145); eGFR For Non-African Americans > 60 (> 60)
[2018-10-08] MEDS: Docusate Oral Soln 100 MG/10 ML UDC PO SCH (20:22)
[2018-10-08] MEDS: hydrOXYzine pamoate 25 MG CAPSULE PO SCH (20:22)
[2018-10-09] MEDS: levETIRAcetam 250 MG TABLET PO SCH ×3 (04:02→16:51)
[2018-10-09 04:05] LABS: Hematocrit 35.2 % (37.5-50.1); Hemoglobin 10.9 g/dL (12.9-16.9); Immature Granulocytes % 0.2 % (0-4); Lymphocytes % 15.8 %; Mean Corpuscular Hemoglobin 27.3 pg (28.0-33.3); Mean Corpuscular Volume 88.2 fL (83.0-100.0); Mean Platelet Volume 10.4 fL (9.4-12.4); Monocytes # 0.3 K/mcL (0.0-1.3); Monocytes % 5.1 %; Neutrophils # 4.9 K/mcL (1.6-8.9); Platelet Count 162 K/mcL (140-400); Red Blood Count 3.99 M/mcL (4.19-5.50); Red Cell Distribution Width 14.6 % (11.5-14.5); Segmented Neutrophils % 78.9 %
[2018-10-09 04:32] LABS: BUN/Creatinine Ratio 29 (6-26); Blood Urea Nitrogen 23 mg/dL (8-23); Calcium 8.6 mg/dL (8.6-10.3); Carbon Dioxide 43 mEq/L (23-29); Chloride 95 mEq/L (98-107); Glucose 260 mg/dL (70-105); Osmolality,Calculated 305 (280-300); Potassium 4.1 mEq/L (3.5-5.1); Sodium 141 mEq/L (136-145); eGFR For Non-African Americans > 60 (> 60)
[2018-10-09] MEDS: MethylPREDNISolone 40 MG/ML VIAL IVP SCH ×2 (05:45→18:27)
[2018-10-09] MEDS: Budesonide/Formoterol 80/4.5 MDI IH SCH ×2 (07:51→20:33)
[2018-10-09] MEDS: *HR* Heparin 5,000 UNIT/ML VIAL SQ SCH ×3 (09:19→16:52)
[2018-10-09] MEDS: Insulin LISPRO 300 UNITS/3 ML VIAL SQ SCH ×4 (09:21→20:51)
--- NOTE | 2018-10-09 10:28 | Internal Med Progress Note ---
<Chad Medina - Last Filed: 10/09/18 14:09> Hospitalist Progress Note - Encounter Date of Encounter: 10/09/18 Time of Encounter: 09:00 - Subjective Interval History: 10/09 Patient is sleepier today, has not been altered, still agreeable/cooperative with encounter, chronic pain in control. Now at 6L high flow and seems to consis tently saturated above goal--continuing wean. 10/08 Patient had a fairly good night's sleep he is been slow to wean off high flow nasal cannula, bouts of confusion seemingly interrelated to oxygenation yesterday, cooperative when having [id number] encounter, encouraged transfer from bed to chair with more hours in chair and bed today with goal of continued weaning to his baseline of 4 L if possible. He denies shortness of breath chest pain abdominal pain fever nausea vomiting. 10/07 Patient seen and evaluated at bedside. He reports some pain in his low back, chronic. He denies fevers, shortness of breath, chest pain, or abdominal pain. He admits to limited bipap use at home. Admission history: Mr. Thompson is a 62 year old male with past medical hx of COPD, MAITE, DM2, cirrhosis, CHF, and seizure disorder. He presented originally to [place] yesterday evening for shortness of breath and confusion. Baseline home O2 needs: at least 4L NC and night bipap. Pt has been having difficulty with breathing for approximately 3 days and has been increasingly confused. She also states he has been non-compliant with his BiPAP while sleeping. Pt's called EMS today when pt became unresponsive. Pt was placed on BiPAP at [place] ED and mentation was reported to improve. Then transferred to [facility]. - Exam Vitals: Temp Pulse Resp BP Pulse Ox 97.7 F 52 17 148/64 100 10/09/18 07:41 10/09/18 07:41 10/09/18 07:41 10/09/18 07:41 10/09/18 07:41 Exam: General: well developed and well nourished male. No acute distress, somnolent today Head: normocephalic and atraumatic Eyes: EOMI, sclera anicteric, conjunctiva pink Neck: supple, trachea midline Lungs: grossly diminished breath sounds. No wheezes, rales, or rhonchi appreciated. On high flow nasal cannula Heart: RRR +S1 +S2. No murmurs, clicks, or rubs noted Abdomen: soft, nontender no masses. normoactive bowel sounds Extremities: warm, radial pulses palpable and symmetrical. No edema or cyanosis. Neuro: Less lethargic responds to voice. Cooperative on exam follows commands Skin: warm, dry, intact - Assessment and Plan (1) Acute and chronic respiratory failure with hypercapnia Current Visit: Yes Status: Acute Assessment and Plan: Goal to transition from high flow to regular flow home O2 requirements are 4 L at baseline with BiPAP at night, currently 6L high flow Encourage patient to ambulate to chair and sit in chair for more hours and he is sleeping in bed--[place] [facility] [place] Continue scheduled pulmonary toilet, now steroid q12 (2) Altered mental status Current Visit: No Status: Resolved Assessment and Plan: Resolved, likely 2/2 resp failue with hypoxemia and chronic co2 retention; not altered today (3) 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, type II Current Visit: Yes Status: Chronic Assessment and Plan: ADA and SSI; he is on high dose fair control though several 200s (4) DVT prophylaxis Current Visit: No Status: Acute Assessment and Plan: sq heparin q8 (5) Seizure disorder Current Visit: Yes Status: Chronic (6) Cirrhosis Current Visit: Yes Status: Chronic - Time Spent with Patient Total time spent is greater than 50% in coordination of care (as documented) at patient's floor/unit and/or counseling patient: Internal Medicine: Result - Labs CBC & Chem 7: 10/09/18 03:44 10/09/18 03:44 Labs: Short CBC 10/09/18 Range/Units 03:44 WBC 6.2 (4.3-11.1) K/mcL Hgb 10.9 L (12.9-16.9) g/dL Hct 35.2 L (37.5-50.1) % Plt Count 162 (140-400) K/mcL Neutrophils # 4.9 (1.6-8.9) K/mcL BMP 10/08/18 10/09/18 17:11 03:44 Sodium 144 141 Potassium 3.7 4.1 Chloride 95 L 95 L Carbon Dioxide 45 H* 43 H* BUN 24 H 23 Creatinine 0.95 0.80 Glucose 177 H 260 H Calcium 9.2 8.6 Cardiac Enzymes 10/08/18 Range/Units 17:11 Troponin I < 0.03 (< 0.04) ng/mL - ABG Interpretation ABG results: ABG ABG pH 7.35 pH Units (7.32-7.45) 10/07/18 04:27 ABG pCO2 87 mmHg (35-45) H* 10/07/18 04:27 ABG pO2 70 mmHg (85-104) L 10/07/18 04:27 ABG O2 Saturation 92 % (95-98) L 10/07/18 04:27 Consult Discharge Plan - Plan [facility]errals: [facility] [Primary Care Provider] - 10/18/18 10:45 am (blue team) <Chalino Moreno - Last Filed: 10/09/18 14:31> Hospitalist Progress Note - Encounter Date of Encounter: 10/09/18 - Exam Vitals: Temp Pulse Resp BP Pulse Ox 97.7 F 54 18 161/84 93 10/09/18 07:41 10/09/18 12:27 10/09/18 12:20 10/09/18 12:20 10/09/18 11:35 - Assessment and Plan (1) 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, type II Current Visit: Yes Status: Chronic (2) DVT prophylaxis Current Visit: Yes Status: Acute (3) Seizure disorder Current Visit: Yes Status: Chronic (4) Acute and chronic respiratory failure with hypercapnia Current Visit: Yes Status: Acute (5) Altered mental status Current Visit: Yes Status: Acute (6) Cirrhosis Current Visit: Yes Status: Chronic (7) COPD (chronic obstructive pulmonary disease) Current Visit: No Status: Acute (8) Hepatitis C Current Visit: No Status: Chronic (9) Hypertension Current Visit: No Status: Chronic (10) Acute and chronic respiratory failure Current Visit: No Status: Acute - Time Spent with Patient Total time spent is greater than 50% in coordination of care (as documented) at patient's floor/unit and/or counseling patient: Internal Medicine: Result - Labs CBC & Chem 7: 10/09/18 03:44 10/09/18 03:44 Labs: Short CBC 10/09/18 Range/Units 03:44 WBC 6.2 (4.3-11.1) K/mcL Hgb 10.9 L (12.9-16.9) g/dL Hct 35.2 L (37.5-50.1) % Plt Count 162 (140-400) K/mcL Neutrophils # 4.9 (1.6-8.9) K/mcL BMP 10/08/18 10/09/18 17:11 03:44 Sodium 144 141 Potassium 3.7 4.1 Chloride 95 L 95 L Carbon Dioxide 45 H* 43 H* BUN 24 H 23 Creatinine 0.95 0.80 Glucose 177 H 260 H Calcium 9.2 8.6 Cardiac Enzymes 10/08/18 Range/Units 17:11 Troponin I < 0.03 (< 0.04) ng/mL - ABG Interpretation ABG results: ABG ABG pH 7.35 pH Units (7.32-7.45) 10/07/18 04:27 ABG pCO2 87 mmHg (35-45) H* 10/07/18 04:27 ABG pO2 70 mmHg (85-104) L 10/07/18 04:27 ABG O2 Saturation 92 % (95-98) L 10/07/18 04:27 - Attending Attestation I examined this patient and my medical decision-making was reviewed with the Resident Physician on 10/09/18. I agree with the documented findings, disposition and treatment plan as described except to the extent set forth below. Mr Thompson is currently admitted for acute resp failure and COPD. He remains moderate to high risk due to potential for worsening clinical status. Mr Thompson has been uncooperative with care. His oxygen is down to 6 liters now. No fever or chills. No CP. No GI issues. Has not been up much. Exam Alert Resting at this time Mucus membranes dry Heart reg No wheeze at this time Abd soft I/P 1. Resp failure - slow improvement. Wean oxygen as able. 2. COPD Further diagnoses and plan as above. <Chad Medina - Last Filed: 10/09/18 14:09> (2) Altered mental status Qualifiers: Altered mental status type: disorientation Qualified Code(s): R41.0 - Disorientation, unspecified (3) 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, type II Qualifiers: 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 [facility] insulin use: with terminal operations manager use 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 complication status: with circulatory complication 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 complication detail: with other circulatory complications Qualified Code(s): E11.59 - Type 2 diabetes mellitus with other circulatory complications; Z79.4 - [facility] (current) use of insulin; Z79.4 - [facility] (current) use of insulin; Z79.4 - intermodal truck driver (current) use of insulin; Z79.4 - [facility] (current) use of insulin (6) Cirrhosis Qualifiers: Hepatic cirrhosis type: other cirrhosis Qualified Code(s): K74.69 - Other cirrhosis of liver <Chalino Moreno - Last Filed: 10/09/18 14:31> (1) 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, type II Qualifiers: 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 terminal operations manager insulin use: with terminal operations manager use 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 complication status: with circulatory complication 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 complication detail: with other circulatory complications Qualified Code(s): E11.59 - Type 2 diabetes mellitus with other circulatory complications; Z79.4 - intermodal truck driver (current) use of insulin; Z79.4 - intermodal truck driver (current) use of insulin; Z79.4 - [facility] (current) use of insulin; Z79.4 - [facility] (current) use of insulin (5) Altered mental status Qualifiers: Altered mental status type: unspecified Qualified Code(s): R41.82 - Altered mental status, unspecified (6) Cirrhosis Qualifiers: Hepatic cirrhosis type: other cirrhosis Qualified Code(s): K74.69 - Other cirrhosis of liver (7) COPD (chronic obstructive pulmonary disease) Qualifiers: COPD type: COPD with acute exacerbation Qualified Code(s): J44.1 - Chronic obstructive pulmonary disease with (acute) exacerbation (8) Hepatitis C Qualifiers: Viral hepatitis chronicity: chronic Hepatic coma status: without hepatic coma Qualified Code(s): B18.2 - Chronic viral hepatitis C (9) Hypertension Qualifiers: Hypertension type: essential hypertension Qualified Code(s): I10 - Essential (primary) hypertension (10) Acute and chronic respiratory failure Qualifiers: Respiratory failure complication: hypoxia and hypercapnia Qualified Code(s): J96.21 - Acute and chronic respiratory failure with hypoxia; J96.22 - Acute and chronic respiratory failure with hypercapnia; J96.22 - Acute and chronic respiratory failure with hypercapnia; J96.22 - Acute and chronic respiratory failure with hypercapnia
[2018-10-09] MEDS: Lactulose Oral Soln 20 GM/30 ML UDC PO SCH ×3 (11:00→16:51)
[2018-10-09] MEDS: Aspirin 81 MG TAB.CHEW PO SCH (11:25)
[2018-10-09] MEDS: Loratadine 10 MG TABLET PO SCH (11:25)
[2018-10-09] MEDS: Cholecalciferol (D-3) 1,000 UNIT TABLET PO SCH (11:26)
[2018-10-09] MEDS: Magnesium Oxide 400 MG TABLET PO SCH ×2 (11:26→20:44)
[2018-10-09] MEDS: *HR* OxyCODONE/APAP 5/325 TABLET PO PRN ×2 (11:32→18:33)
[2018-10-09] MEDS: Docusate Oral Soln 100 MG/10 ML UDC PO SCH ×2 (20:44→20:50)
[2018-10-09] MEDS: hydrOXYzine pamoate 25 MG CAPSULE PO SCH (20:44)
[2018-10-10] MEDS: *HR* Heparin 5,000 UNIT/ML VIAL SQ SCH ×3 (00:36→17:12)
[2018-10-10] MEDS: *HR* OxyCODONE/APAP 5/325 TABLET PO PRN ×4 (00:36→20:53)
[2018-10-10] MEDS: Lactulose Oral Soln 20 GM/30 ML UDC PO SCH ×3 (00:37→17:12)
[2018-10-10] MEDS: levETIRAcetam 250 MG TABLET PO SCH ×2 (03:55→15:08)
[2018-10-10 05:36] LABS: Basophils % 0.2 %; Hematocrit 37.1 % (37.5-50.1); Hemoglobin 11.2 g/dL (12.9-16.9); Immature Granulocytes % 0.3 % (0-4); Lymphocytes # 1.2 K/mcL (0.6-4.6); Lymphocytes % 19.4 %; Mean Corpuscular HGB Conc 30.2 g/dL (31.6-35.5); Mean Corpuscular Volume 89.4 fL (83.0-100.0); Mean Platelet Volume 10.4 fL (9.4-12.4); Monocytes # 0.4 K/mcL (0.0-1.3); Monocytes % 5.9 %; Neutrophils # 4.8 K/mcL (1.6-8.9); Platelet Count 163 K/mcL (140-400); Red Blood Count 4.15 M/mcL (4.19-5.50); Red Cell Distribution Width 14.2 % (11.5-14.5); Segmented Neutrophils % 74.2 %
[2018-10-10] MEDS: MethylPREDNISolone 40 MG/ML VIAL IVP SCH ×2 (05:38→17:12)
[2018-10-10 05:57] LABS: BUN/Creatinine Ratio 29 (6-26); Blood Urea Nitrogen 23 mg/dL (8-23); Calcium 8.9 mg/dL (8.6-10.3); Carbon Dioxide 42 mEq/L (23-29); Chloride 96 mEq/L (98-107); Glucose 237 mg/dL (70-105); Osmolality,Calculated 305 (280-300); Potassium 4.3 mEq/L (3.5-5.1); Sodium 142 mEq/L (136-145); eGFR For Non-African Americans > 60 (> 60)
[2018-10-10] MEDS: Insulin LISPRO 300 UNITS/3 ML VIAL SQ SCH ×4 (08:52→20:54)
[2018-10-10] MEDS: Aspirin 81 MG TAB.CHEW PO SCH (08:54)
[2018-10-10] MEDS: Magnesium Oxide 400 MG TABLET PO SCH ×2 (08:54→20:54)
[2018-10-10] MEDS: Loratadine 10 MG TABLET PO SCH (08:54)
[2018-10-10] MEDS: Cholecalciferol (D-3) 1,000 UNIT TABLET PO SCH (08:54)
[2018-10-10] MEDS: Budesonide/Formoterol 80/4.5 MDI IH SCH ×2 (09:48→22:03)
--- NOTE | 2018-10-10 13:51 | Internal Med Progress Note ---
<Paola Mccall - Last Filed: 10/10/18 15:14> Hospitalist Progress Note - Encounter Date of Encounter: 10/10/18 - Exam Vitals: Temp Pulse Resp BP Pulse Ox 97.9 F 60 16 172/75 95 10/10/18 11:53 10/10/18 11:53 10/10/18 11:53 10/10/18 11:53 10/10/18 11:53 - Assessment and Plan (1) COPD (chronic obstructive pulmonary disease) Current Visit: No Status: Acute (2) 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, type II Current Visit: Yes Status: Chronic (3) DVT prophylaxis Current Visit: Yes Status: Acute (4) Seizure disorder Current Visit: Yes Status: Chronic (5) Hepatitis C Current Visit: No Status: Chronic (6) Hypertension Current Visit: No Status: Chronic (7) Acute and chronic respiratory failure with hypercapnia Current Visit: Yes Status: Acute (8) Altered mental status Current Visit: Yes Status: Acute (9) Acute and chronic respiratory failure Current Visit: No Status: Acute (10) Cirrhosis Current Visit: Yes Status: Chronic - Time Spent with Patient Total time spent is greater than 50% in coordination of care (as documented) at patient's floor/unit and/or counseling patient: Internal Medicine: Result - Labs CBC & Chem 7: 10/10/18 04:56 10/10/18 04:56 Labs: Short CBC 10/10/18 Range/Units 04:56 WBC 6.4 (4.3-11.1) K/mcL Hgb 11.2 L (12.9-16.9) g/dL Hct 37.1 L (37.5-50.1) % Plt Count 163 (140-400) K/mcL Neutrophils # 4.8 (1.6-8.9) K/mcL BMP 10/10/18 04:56 Sodium 142 Potassium 4.3 Chloride 96 L Carbon Dioxide 42 H* BUN 23 Creatinine 0.78 Glucose 237 H Calcium 8.9 - ABG Interpretation ABG results: ABG ABG pH 7.35 pH Units (7.32-7.45) 10/07/18 04:27 ABG pCO2 87 mmHg (35-45) H* 10/07/18 04:27 ABG pO2 70 mmHg (85-104) L 10/07/18 04:27 ABG O2 Saturation 92 % (95-98) L 10/07/18 04:27 Consult Discharge Plan - Plan [facility]: [facility] Care Provider[facility] - 10/18/18 10:45 am (blue team) - Attending Attestation I examined this patient and my medical decision-making was reviewed with the Resident Physician Dr Medina. I agree with the documented findings, disposition and treatment plan as described except to the extent set forth below. Mr Thompson is currently admitted for acute resp failure and COPD. Mr Thompson awake and cooperative with care today. sob with ambulation to bathroom and remained sob for some time at rest after. On high flow and weaning as able. no cp, plapitations, pressure or wheezing. denies fevers or chills gen- alert, awake,appears stated age eyes- pupils equal round cv- reg rate and rhythm, normal s1,s2, no murmurs appreciated lungs- ctabl, diminished throughout, no wheezing, rhonchi or crackles, normal resp effort on high flow NC abd- soft, non tender, non distended, + bs neuro- AAOx3, CN intact acute on chronic hypercapnic Resp failure 2/2 non compliance with home treatment - slow improvement. Wean oxygen as able. COPD, not in acute exacerbation requiring abx- nebs, steroids and wean slowly HTN- cont meds, adjust as needed, outpt fu for further monitoring on dc chronic anemia at baseline Altered mental status resolved with resp failure treatment- likely 2/2 co2 retention, no evidence of seizure this admission (has hx of seizure d/o) DM- on SSI and will add back home levemir at half dose tonight given today is first day off bipap and regular eating, increase to home as appropriate. Further diagnoses and plan as above. <Chad Medina - Last Filed: 10/11/18 06:52> Hospitalist Progress Note - Encounter Date of Encounter: 10/11/18 Time of Encounter: 10:15 - Subjective Interval History: 10/10 Patient used bipap and slept through night with it. He remains agreeable to its use; today is first night he agreed to/demonstrated use of it in the standard way. He denies fever, discomfort with bipap, chest pain, abdominal pain, has regular UOP and BMs. 10/09 Patient is sleepier today, has not been altered, still agreeable/cooperative with encounter, chronic pain in control. Now at 6L high flow and seems to consistently saturated above goal--continuing wean. 10/08 Patient had a fairly good night's sleep he is been slow to wean off high flow nasal cannula, bouts of confusion seemingly interrelated to oxygenation yesterday, cooperative when having [id number] encounter, encouraged transfer from bed to chair with more hours in chair and bed today with goal of continued weaning to his baseline of 4 L if possible. He denies shortness of breath chest pain abdominal pain fever nausea vomiting. 10/07 Patient seen and evaluated at bedside. He reports some pain in his low back, chronic. He denies fevers, shortness of breath, chest pain, or abdominal pain. He admits to limited bipap use at home. Admission history: Mr. Thompson is a 62 year old male with past medical hx of COPD, MAITE, DM2, cirrhosis, CHF, and seizure disorder. He presented originally to [place] yesterday evening for shortness of breath and confusion. Baseline home O2 needs: at least 4L NC and night bipap. Pt has been having difficulty with breathing for approximately 3 days and has been increasingly confused. She also states he has been non-compliant with his BiPAP while sleeping. Pt's called EMS today when pt became unresponsive. Pt was placed on BiPAP at [place] ED and mentation was reported to improve. Then transferred to [facility]. - Exam Vitals: Temp Pulse Resp BP Pulse Ox 97.9 F 60 16 172/75 95 10/10/18 11:53 10/10/18 11:53 10/10/18 11:53 10/10/18 11:53 10/10/18 11:53 Exam: General: well developed and well nourished male. No acute distress, alert today Head: normocephalic and atraumatic Eyes: EOMI, sclera anicteric, conjunctiva pink Neck: supple, trachea midline Lungs: grossly diminished breath sounds. No wheezes, rales, or rhonchi appreciated. On high flow nasal cannula; good excursion of chest wall Heart: RRR +S1 +S2. No murmurs, clicks, or rubs noted Abdomen: soft, nontender no masses. normoactive bowel sounds Extremities: warm, radial pulses palpable and symmetrical. No edema or cyanosis. Neuro: Cooperative on exam follows commands, good UE movement/intact strength Skin: warm, dry, intact - Assessment and Plan (1) Acute and chronic respiratory failure with hypercapnia Current Visit: Yes Status: Acute Assessment and Plan: Goal to transition from high flow to regular flow home O2 requirements are 4 L at baseline with BiPAP at night, discussed our plan with RT goal of 90-92% Continue scheduled pulmonary toilet, now steroid q12 No antibiotics received as excacerbation was likely mechanical/bipap related Used bipap all night and endorses sleeping well (2) Altered mental status Current Visit: No Status: Resolved (3) 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, type II Current Visit: Yes Status: Chronic Assessment and Plan: ADA and SSI; he is on high dose fair control though several 200s (4) Seizure disorder Current Visit: Yes Status: Chronic Assessment and Plan: Continuing Keppra; no seizures in 2 years (5) Cirrhosis Current Visit: Yes Status: Chronic Assessment and Plan: continuing lactulose with goal BM 2-4; no evidence of encephalopathy at this time (6) DVT prophylaxis Current Visit: No Status: Acute Assessment and Plan: sq heparin - Time Spent with Patient Total time spent is greater than 50% in coordination of care (as documented) at patient's floor/unit and/or counseling patient: Internal Medicine: Result - Labs CBC & Chem 7: 10/10/18 04:56 10/10/18 04:56 Labs: Short CBC 10/10/18 Range/Units 04:56 WBC 6.4 (4.3-11.1) K/mcL Hgb 11.2 L (12.9-16.9) g/dL Hct 37.1 L (37.5-50.1) % Plt Count 163 (140-400) K/mcL Neutrophils # 4.8 (1.6-8.9) K/mcL BMP 10/10/18 04:56 Sodium 142 Potassium 4.3 Chloride 96 L Carbon Dioxide 42 H* BUN 23 Creatinine 0.78 Glucose 237 H Calcium 8.9 - ABG Interpretation ABG results: ABG ABG pH 7.35 pH Units (7.32-7.45) 10/07/18 04:27 ABG pCO2 87 mmHg (35-45) H* 10/07/18 04:27 ABG pO2 70 mmHg (85-104) L 10/07/18 04:27 ABG O2 Saturation 92 % (95-98) L 10/07/18 04:27 _ <Paola Mccall - Last Filed: 10/10/18 15:14> (1) COPD (chronic obstructive pulmonary disease) Qualifiers: COPD type: COPD with acute exacerbation Qualified Code(s): J44.1 - Chronic obstructive pulmonary disease with (acute) exacerbation (2) 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, type II Qualifiers: 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 laborer aquatic life insulin use: with laborer aquatic life use 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 complication status: with circulatory complication 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 complication detail: with other circulatory complications Qualified Code(s): E11.59 - Type 2 diabetes mellitus with other circulatory complications; Z79.4 - senior living (current) use of insulin; Z79.4 - senior living (current) use of insulin; Z79.4 - electrical technology instructor (current) use of insulin; Z79.4 - senior living (current) use of insulin (5) Hepatitis C Qualifiers: Viral hepatitis chronicity: chronic Hepatic coma status: without hepatic coma Qualified Code(s): B18.2 - Chronic viral hepatitis C (6) Hypertension Qualifiers: Hypertension type: essential hypertension Qualified Code(s): I10 - Essential (primary) hypertension (8) Altered mental status Qualifiers: Altered mental status type: unspecified Qualified Code(s): R41.82 - Altered mental status, unspecified (9) Acute and chronic respiratory failure Qualifiers: Respiratory failure complication: hypoxia and hypercapnia Qualified Code(s): J96.21 - Acute and chronic respiratory failure with hypoxia; J96.22 - Acute and chronic respiratory failure with hypercapnia; J96.22 - Acute and chronic respiratory failure with hypercapnia; J96.22 - Acute and chronic respiratory failure with hypercapnia (10) Cirrhosis Qualifiers: Hepatic cirrhosis type: other cirrhosis Qualified Code(s): K74.69 - Other cirrhosis of liver <AdamChad - Last Filed: 10/11/18 06:52> (2) Altered mental status Qualifiers: Altered mental status type: disorientation Qualified Code(s): R41.0 - Disorientation, unspecified (3) 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, type II Qualifiers: 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 laborer aquatic life insulin use: with laborer aquatic life use 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 complication status: with circulatory complication 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 complication detail: with other circulatory complications Qualified Code(s): E11.59 - Type 2 diabetes mellitus with other circulatory complications; Z79.4 - senior living (current) use of insulin; Z79.4 - senior living (current) use of insulin; Z79.4 - senior living (current) use of insulin; Z79.4 - electrical technology instructor (current) use of insulin (5) Cirrhosis Qualifiers: Hepatic cirrhosis type: other cirrhosis Qualified Code(s): K74.69 - Other cirrhosis of liver
[2018-10-10] MEDS: Docusate Oral Soln 100 MG/10 ML UDC PO SCH (20:53)
[2018-10-10] MEDS: hydrOXYzine pamoate 25 MG CAPSULE PO SCH (20:53)
[2018-10-11] MEDS: Insulin DETEMIR 100 UNIT/ML X5UNITS SQ SCH ×3 (02:55→20:43)
[2018-10-11] MEDS: levETIRAcetam 250 MG TABLET PO SCH ×2 (02:59→14:49)
[2018-10-11] MEDS: *HR* Heparin 5,000 UNIT/ML VIAL SQ SCH ×4 (02:59→23:42)
[2018-10-11] MEDS: MethylPREDNISolone 40 MG/ML VIAL IVP SCH ×2 (02:59→17:37)
[2018-10-11] MEDS: Lactulose Oral Soln 20 GM/30 ML UDC PO SCH ×4 (02:59→23:42)
[2018-10-11 07:14] LABS: BUN/Creatinine Ratio 35 (6-26); Blood Urea Nitrogen 28 mg/dL (8-23); Calcium 9.2 mg/dL (8.6-10.3); Carbon Dioxide 42 mEq/L (23-29); Chloride 95 mEq/L (98-107); Glucose 281 mg/dL (70-105); Osmolality,Calculated 304 (280-300); Potassium 4.1 mEq/L (3.5-5.1); Sodium 139 mEq/L (136-145); eGFR For Non-African Americans > 60 (> 60)
[2018-10-11] MEDS: Budesonide/Formoterol 80/4.5 MDI IH SCH ×2 (07:54→20:51)
[2018-10-11] MEDS: Aspirin 81 MG TAB.CHEW PO SCH (08:56)
[2018-10-11] MEDS: *HR* OxyCODONE/APAP 5/325 TABLET PO PRN ×3 (08:56→20:42)
[2018-10-11] MEDS: Magnesium Oxide 400 MG TABLET PO SCH ×2 (08:57→20:42)
[2018-10-11] MEDS: Loratadine 10 MG TABLET PO SCH (08:57)
[2018-10-11] MEDS: Cholecalciferol (D-3) 1,000 UNIT TABLET PO SCH (08:57)
[2018-10-11] MEDS: Insulin LISPRO 300 UNITS/3 ML VIAL SQ SCH ×4 (09:00→20:43)
--- NOTE | 2018-10-11 12:14 | Discharge Summary ---
Date of Encounter: 10/11/18 Time of Encounter: 13:31 - Discharge Diagnosis (1) Acute and chronic respiratory failure Priority: Primary Status: Acute Qualifiers: Respiratory failure complication: hypoxia and hypercapnia Qualified Code(s): J96.21 - Acute and chronic respiratory failure with hypoxia; J96.22 - Acute and chronic respiratory failure with hypercapnia (2) COPD (chronic obstructive pulmonary disease) Priority: Secondary Status: Acute Qualifiers: COPD type: COPD with acute exacerbation Qualified Code(s): J44.1 - Chronic obstructive pulmonary disease with (acute) exacerbation (3) 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, type II Priority: Secondary Status: Chronic Qualifiers: 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 technician insulin use: with intermediate use 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 complication status: with circulatory complication 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 complication detail: with other circulatory complications Qualified Code(s): E11.59 - Type 2 diabetes mellitus with other circulatory complications; Z79.4 - intermediate (current) use of insulin; Z79.4 - roasterman (current) use of insulin; Z79.4 - roasterman (current) use of insulin; Z79.4 - roasterman (current) use of insulin (4) Seizure disorder Priority: Secondary Status: Chronic (5) Hepatitis C Priority: Secondary Status: Chronic Qualifiers: Viral hepatitis chronicity: chronic Hepatic coma status: without hepatic coma Qualified Code(s): B18.2 - Chronic viral hepatitis C (6) Hypertension Priority: Secondary Status: Chronic Qualifiers: Hypertension type: essential hypertension Qualified Code(s): I10 - [place] l (primary) hypertension (7) Acute and chronic respiratory failure with hypercapnia Priority: Secondary Status: Acute (8) Altered mental status Priority: Secondary Status: Acute Qualifiers: Altered mental status type: unspecified Qualified Code(s): R41.82 - Altered mental status, unspecified (9) Cirrhosis Priority: Secondary Status: Chronic Qualifiers: Hepatic cirrhosis type: other cirrhosis Qualified Code(s): K74.69 - Other cirrhosis of liver (10) DVT prophylaxis Priority: Secondary Status: Acute Hospital course: Mr. Thompson is a 62 year old male - Time Spent with Patient Total time spent providing and/or coordinating discharge services: - Discharge Medications Home Medications: Cholecalciferol (Vitamin D3) [Vitamin D3] 2,000 unit PO BID 03/15/16 [History] Magnesium 400 mg PO BID 03/15/16 [History] Budesonide/Formoterol 80/4.5 [Symbicort 80/4.5] 2 puff IH BIDR #2 inhaler 03/17/16 [Rx] Cyanocobalamin (Vitamin B-12) [Vitamin B12] 1,000 mcg PO BID 04/03/17 [History] Loratadine [Allergy Relief] 10 mg PO DAILY 04/03/17 [History] Omeprazole 20 mg PO DAILY 04/03/17 [History] Aspirin 81 mg PO DAILY tab.chew 09/05/17 [Rx] Atorvastatin [Lipitor] 40 mg PO HS tablet 09/05/17 [Rx] Furosemide [Lasix] 20 mg PO DAILY PRN #30 tablet 12/19/17 [Rx] Oxycodone HCl [Oxaydo] 10 mg PO Q6H 02/24/18 [History] Insulin ASPART [Novolog Flexpen] 5 - 10 unit SQ TIDWM 08/09/18 [History] Insulin DETEMIR [Levemir] 30 unit SQ BID 08/09/18 [History] Ipratropium/Albuterol Sulfate [Combivent Respimat Inhal [place]] 1 puff IH Q6H PRN 08/09/18 [History] Lactulose 10 gm PO Q8HR 08/09/18 [History] Losartan [Cozaar] 25 mg PO DAILY 08/09/18 [History] Metoprolol [Lopressor] 50 mg PO TID 08/09/18 [History] Potassium Chloride [K-Tab ER] 20 meq PO DAILY 08/09/18 [History] Sertraline [Zoloft] 50 mg PO DAILY 08/09/18 [History] hydrOXYzine HCl [Hydroxyzine HCl] 25 mg PO HS PRN 08/09/18 [History] Sennosides/Docusate Sodium [Senna-Docusate Sodium Tablet] 1 tab PO HS 10/07/18 [History] Zinc [Zinc Chelated] 50 mg PO BID 10/07/18 [History] Allergies/Adverse Reactions: Allergy/AdvReac Type Severity Reaction Status Date / Time No Known Allergies Allergy Verified 10/07/18 16:41 Date of admission: 10/07/18 03:04 [facility] Consults: 10/11/18 11:19 Consult to Occupational Therapy [CONS] Routine Comment: Evaluate, develop and implement POC Reason for Consult: pt reports unsteady gate Does patient have active BEDREST order?: No Is patient medically & hemodynamically stable?: Yes Consult to Physical Therapy [CONS] Routine Comment: Evaluate, develop and implement POC Reason for Consult: pt reports unsteady gate Does patient have active BEDREST order?: No Is patient medically & hemodynamically stable?: Yes Discharging clinician: Paola Mccall Anticipated date of discharge: 10/11/18 - Constitutional Vitals: Temp Pulse Resp BP Pulse Ox 97.8 F 53 18 165/81 98 10/11/18 11:22 10/11/18 11:22 10/11/18 11:22 10/11/18 11:22 10/11/18 11:22 General appearance: Present: A&O X 0, mild distress. Absent: cooperative, answers questions appropriately - Patient Status Disposition: Home, Self-Care Condition: Fair Functional capacity at discharge: independent ambulation Overall status at discharge: patient is back to baseline - Discharge Instructions Follow Up With: [facility] [Primary Care Provider[facility] - 10/18/18 10:45 am (blue team) - Diet and Activity Activity: as per physical therapy Diet: diabetic diet
--- NOTE | 2018-10-11 13:23 | Electrocardiograph Report ---
[address] [place] [address] Test Date: 2018-10-08 Pat Name: Bhavesh Thompson Department: 110 Room: 2N10 Gender: M Photograph Retoucher: BILLIE : 1955 Requested By: Chalino Moreno Order Number: [id number] Reading MD: Wayne Rodriguez Measurements Intervals [place] Rate: 60 P: 43 AR: 165 QRS: 47 QRSD: 97 T: 25 QT: 425 QTc: 426 Interpretive Statements SINUS RHYTHM Electronically Signed On 10-11-2018 13:21:56 EST by Wayne Rodriguez
--- NOTE | 2018-10-11 14:33 | Internal Med Progress Note ---
<Lianne Bradshaw - Last Filed: 10/11/18 14:44> Hospitalist Progress Note - Encounter Date of Encounter: 10/11/18 Time of Encounter: 01:15 - Subjective Interval History: Patient seen and examined at bedside. He is alert and oriented times 3. He reports improvement and shortness of breath. He denies chest pain, cough, nausea, vomiting, fever, chills. Nurse reported that patient required 8 L of oxygen when ambulating. Was intending to discharge the patient today but due to the increased oxygen requirement when ambulation will defer discharge until tomorrow. - Exam Vitals: Temp Pulse Resp BP Pulse Ox 97.8 F 52 18 142/68 98 10/11/18 11:22 10/11/18 13:09 10/11/18 11:22 10/11/18 13:09 10/11/18 11:22 Exam: Gen.: Vitals noted. No acute distress. AAOx3 HEENT: oropharynx clear, Normocephalic, atraumatic Neck: Supple. No adenopathy. Cardiac: RRR, no murmur, +S1/S2 Pulmonary: decreased breath sounds bilaterally, no wheezes, rales or rhonchi, equal chest expansion Abdomen: soft, nontender, Bowel sounds noted, no guarding Extremities: no BLE edema, nontender calf, no cyanosis or clubbing Neuro: A&Ox3, moves all extremities, no focal deficits Psych: Appropriate mood and behavior - Assessment and Plan (1) Acute and chronic respiratory failure with hypercapnia Current Visit: Yes Status: Acute Assessment and Plan: Exacerbation of COPD likely secondary to mechanical/BiPAP related. Antibiotics were not needed or indicated at this time. Goal to transition patient from high flow to regular flow oxygen requirements w hich are 4 L at baseline with BiPAP at night. discussed our plan with RT goal of 90-92% -Continue IV Solu-Medrol -BiPAP night -patient 6 minute walk test demonstrated that he required 8 L of oxygen due to desaturation to 82% when ambulating. Was going to discharge today but will now defer until tomorrow. -PT/OT to evaluate the patient for further home health care needs -patient's learning support services director is Dr. Mcnamara will plan for him to follow up outpatient upon discharge (2) COPD (chronic obstructive pulmonary disease) Current Visit: No Status: Acute Assessment and Plan: History of known COPD. Continue home inhalers. (3) 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, type II Current Visit: Yes Status: Chronic Assessment and Plan: History of diabetes insulin-dependent. Glucose has been elevated likely secondary to steroids. Continuing high dose sliding scale insulin. Increased Levemir 20 units b.i.d. Diabetic diet (4) Seizure disorder Current Visit: Yes Status: Chronic Assessment and Plan: Continuing Keppra; no seizures in 2 years (5) Hepatitis C Current Visit: No Status: Chronic Assessment and Plan: Chronic (6) Hypertension Current Visit: No Status: Chronic Assessment and Plan: History of known hypertension however during his admission he had decreased heart rate so his medications were changed and he is now on coreg 6.25 b.i.d. stopped home Lopressor continue home losartan 25 mg daily BP stable (7) Altered mental status Current Visit: Yes Status: Acute Assessment and Plan: Resolved. (8) Acute and chronic respiratory failure Current Visit: No Status: Acute Assessment and Plan: As above. Resolved (9) DVT prophylaxis Current Visit: Yes Status: Acute Assessment and Plan: SQ Heparin (10) Cirrhosis Current Visit: Yes Status: Chronic Assessment and Plan: Continue home meds - Time Spent with Patient Total time spent is greater than 50% in coordination of care (as documented) at patient's floor/unit and/or counseling patient: Internal Medicine: Result - Labs CBC & Chem 7: 10/10/18 04:56 10/11/18 06:22 Labs: BMP 10/11/18 06:22 Sodium 139 Potassium 4.1 Chloride 95 L Carbon Dioxide 42 H* BUN 28 H Creatinine 0.79 Glucose 281 H Calcium 9.2 - ABG Interpretation ABG results: ABG ABG pH 7.35 pH Units (7.32-7.45) 10/07/18 04:27 ABG pCO2 87 mmHg (35-45) H* 10/07/18 04:27 ABG pO2 70 mmHg (85-104) L 10/07/18 04:27 ABG O2 Saturation 92 % (95-98) L 10/07/18 04:27 Consult Discharge Plan - Plan [facility] Care Provider[facility] - 10/18/18 10:45 am (blue team) <Paola Mccall - Last Filed: 10/11/18 15:54> Hospitalist Progress Note - Encounter Date of Encounter: 10/11/18 - Exam Vitals: Temp Pulse Resp BP Pulse Ox 97.8 F 52 18 142/68 98 10/11/18 11:22 10/11/18 13:09 10/11/18 11:22 10/11/18 13:09 10/11/18 11:22 - Assessment and Plan (1) COPD (chronic obstructive pulmonary disease) Current Visit: No Status: Acute (2) 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, type II Current Visit: Yes Status: Chronic (3) DVT prophylaxis Current Visit: Yes Status: Acute (4) Seizure disorder Current Visit: Yes Status: Chronic (5) Hepatitis C Current Visit: No Status: Chronic (6) Hypertension Current Visit: No Status: Chronic (7) Acute and chronic respiratory failure with hypercapnia Current Visit: Yes Status: Acute (8) Altered mental status Current Visit: Yes Status: Acute (9) Acute and chronic respiratory failure Current Visit: No Status: Acute (10) Cirrhosis Current Visit: Yes Status: Chronic - Time Spent with Patient Total time spent is greater than 50% in coordination of care (as documented) at patient's floor/unit and/or counseling patient: Internal Medicine: Result - Labs CBC & Chem 7: 10/10/18 04:56 10/11/18 06:22 Labs: BMP 10/11/18 06:22 Sodium 139 Potassium 4.1 Chloride 95 L Carbon Dioxide 42 H* BUN 28 H Creatinine 0.79 Glucose 281 H Calcium 9.2 - ABG Interpretation ABG results: ABG ABG pH 7.35 pH Units (7.32-7.45) 10/07/18 04:27 ABG pCO2 87 mmHg (35-45) H* 10/07/18 04:27 ABG pO2 70 mmHg (85-104) L 10/07/18 04:27 ABG O2 Saturation 92 % (95-98) L 10/07/18 04:27 - Attending Attestation I examined this patient and my medical decision-making was reviewed with the Resident Physician Dr Bradshaw. I agree with the documented findings, disposition and treatment plan as described except to the extent set forth below. Mr Thompson is currently admitted for acute resp failure and COPD. Mr Thompson awake and cooperative. States he wore bipap overnight but it is documented he wore intermittently. sob is improving but remains sob with exertion. weaning o2 to NC. denies fevers, chills, no sputum or cough, denies wheezing currently. encouraged to wear bipap all night gen- alert, awake,appears stated age eyes- pupils equal round cv- reg rate and rhythm, normal s1,s2, no murmurs appreciated lungs- ctabl, diminished throughout but improved aeration posteriorly with movem ent appreciated in bases today no wheezing, rhonchi or crackles, normal resp effort on o2 nc neuro- AAOx3, CN intact acute on chronic hypercapnic Resp failure 2/2 non compliance with home treatment - slow improvement. weaned to near home o2 but 6 minute walk revealed 8L requirement with ambulation, cont iv steroids, bpap hs, weaning o2 as able, repeat 6 min walk tomorrow COPD, not in acute exacerbation requiring abx and appears to be non compliance with home regimen as cause- nebs, steroids and wean slowly, flu neg HTN- cont meds, adjust as needed, outpt fu for further monitoring on dc chronic anemia at baseline Altered mental status resolved with resp failure treatment- likely 2/2 co2 retention, no evidence of seizure this admission (has hx of seizure d/o) DM- on SSI, levemir increase to home dosing as appropriate as he is now routinely eating (home dose 30 bid) Further diagnoses and plan as above. <Lianne Bradshaw - Last Filed: 10/11/18 14:44> (2) COPD (chronic obstructive pulmonary disease) Qualifiers: COPD type: COPD with acute exacerbation Qualified Code(s): J44.1 - Chronic obstructive pulmonary disease with (acute) exacerbation (3) 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, type II Qualifiers: 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 nursing home insulin use: with manager community use 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 complication status: with circulatory complication 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 complication detail: with other circulatory complications Qualified Code(s): E11.59 - Type 2 diabetes mellitus with other circulatory complications; Z79.4 - nursing home (current) use of insulin; Z79.4 - nursing home (current) use of insulin; Z79.4 - nursing home (current) use of insulin; Z79.4 - nursing home (current) use of insulin (5) Hepatitis C Qualifiers: Viral hepatitis chronicity: chronic Hepatic coma status: without hepatic coma Qualified Code(s): B18.2 - Chronic viral hepatitis C (6) Hypertension Qualifiers: Hypertension type: essential hypertension Qualified Code(s): I10 - Essential (primary) hypertension (7) Altered mental status Qualifiers: Altered mental status type: unspecified Qualified Code(s): R41.82 - Altered mental status, unspecified (8) Acute and chronic respiratory failure Qualifiers: Respiratory failure complication: hypoxia and hypercapnia Qualified Code(s): J96.21 - Acute and chronic respiratory failure with hypoxia; J96.22 - Acute and chronic respiratory failure with hypercapnia (10) Cirrhosis Qualifiers: Hepatic cirrhosis type: other cirrhosis Qualified Code(s): K74.69 - Other cirrhosis of liver <Paola Mccall - Last Filed: 10/11/18 15:54> (1) COPD (chronic obstructive pulmonary disease) Qualifiers: COPD type: COPD with acute exacerbation Qualified Code(s): J44.1 - Chronic obstructive pulmonary disease with (acute) exacerbation (2) 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, type II Qualifiers: 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 nursing home insulin use: with nursing home use 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 complication status: with circulatory complication 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 comp lication detail: with other circulatory complications Qualified Code(s): E11.59 - Type 2 diabetes mellitus with other circulatory complications; Z79.4 - nursing home (current) use of insulin; Z79.4 - nursing home (current) use of insulin; Z79.4 - nursing home (current) use of insulin; Z79.4 - nursing home (current) use of insulin (5) Hepatitis C Qualifiers: Viral hepatitis chronicity: chronic Hepatic coma status: without hepatic coma Qualified Code(s): B18.2 - Chronic viral hepatitis C (6) Hypertension Qualifiers: Hypertension type: essential hypertension Qualified Code(s): I10 - Essential (primary) hypertension (8) Altered mental status Qualifiers: Altered mental status type: unspecified Qualified Code(s): R41.82 - Altered mental status, unspecified (9) Acute and chronic respiratory failure Qualifiers: Respiratory failure complication: hypoxia and hypercapnia Qualified Code(s): J96.21 - Acute and chronic respiratory failure with hypoxia; J96.22 - Acute and chronic respiratory failure with hypercapnia (10) Cirrhosis Qualifiers: Hepatic cirrhosis type: other cirrhosis Qualified Code(s): K74.69 - Other cirrhosis of liver
[2018-10-11 16:17] LABS: BUN/Creatinine Ratio 31 (6-26); Blood Urea Nitrogen 27 mg/dL (8-23); Calcium 9.2 mg/dL (8.6-10.3); Carbon Dioxide 43 mEq/L (23-29); Chloride 97 mEq/L (98-107); Glucose 125 mg/dL (70-105); Osmolality,Calculated 303 (280-300); Potassium 3.5 mEq/L (3.5-5.1); Sodium 143 mEq/L (136-145); eGFR For Non-African Americans > 60 (> 60)
[2018-10-11] MEDS: hydrOXYzine pamoate 25 MG CAPSULE PO SCH (20:42)
[2018-10-11] MEDS: Docusate Oral Soln 100 MG/10 ML UDC PO SCH (20:42)
[2018-10-12] MEDS: levETIRAcetam 250 MG TABLET PO SCH ×2 (02:58→15:08)
[2018-10-12] MEDS: MethylPREDNISolone 40 MG/ML VIAL IVP SCH (06:12)
[2018-10-12] MEDS: Insulin LISPRO 300 UNITS/3 ML VIAL SQ SCH ×2 (08:26→12:00)
[2018-10-12] MEDS: Insulin DETEMIR 100 UNIT/ML X5UNITS SQ SCH (08:27)
[2018-10-12] MEDS: *HR* Heparin 5,000 UNIT/ML VIAL SQ SCH (08:28)
[2018-10-12] MEDS: Magnesium Oxide 400 MG TABLET PO SCH (08:29)
[2018-10-12] MEDS: Aspirin 81 MG TAB.CHEW PO SCH (08:29)
[2018-10-12] MEDS: Lactulose Oral Soln 20 GM/30 ML UDC PO SCH (08:29)
[2018-10-12] MEDS: Cholecalciferol (D-3) 1,000 UNIT TABLET PO SCH (08:29)
[2018-10-12] MEDS: Loratadine 10 MG TABLET PO SCH (08:29)
[2018-10-12] MEDS ORDERED: Isovue-370 500 ML INFUS..BTL IV ONE (08:39)
[2018-10-12] MEDS: *HR* OxyCODONE/APAP 5/325 TABLET PO PRN ×2 (08:40→15:08)
[2018-10-12 09:17] LABS: BUN/Creatinine Ratio 31 (6-26); Blood Urea Nitrogen 24 mg/dL (8-23); Calcium 9.4 mg/dL (8.6-10.3); Carbon Dioxide 40 mEq/L (23-29); Chloride 94 mEq/L (98-107); Glucose 237 mg/dL (70-105); Osmolality,Calculated 298 (280-300); Potassium 4.1 mEq/L (3.5-5.1); Sodium 138 mEq/L (136-145); eGFR For Non-African Americans > 60 (> 60)
[2018-10-12] MEDS: Ipratropium/Albuterol Neb 3 ML IH SCH ×2 (10:29→11:22)
[2018-10-12] MEDS: Budesonide/Formoterol 80/4.5 MDI IH SCH (11:22)
--- NOTE | 2018-10-12 13:35 | Discharge Summary ---
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 complication status: with circulatory complication 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 complication detail: with other circulatory complications Qualified Code(s): E11.59 - Type 2 diabetes mellitus with other circulatory complications; Z79.4 - senior living (current) use of insulin; Z79.4 - senior living (current) use of insulin; Z79.4 - exterminator helper termite (current) use of insulin; Z79.4 - senior living (current) use of insulin (3) DVT prophylaxis Status: Acute (4) Seizure disorder Status: Chronic (5) Hepatitis C Status: Chronic Qualifiers: Viral hepatitis chronicity: chronic Hepatic coma status: without hepatic coma Qualified Code(s): B18.2 - Chronic viral hepatitis C (6) Hypertension Status: Chronic Qualifiers: Hypertension type: essential hypertension Qualified Code(s): I10 - Essential (primary) hypertension (7) Acute and chronic respiratory failure with hypercapnia Status: Acute (8) Altered mental status Status: Acute Qualifiers: Altered mental status type: unspecified Qualified Code(s): R41.82 - Altered mental status, unspecified (9) Acute and chronic respiratory failure Status: Acute Qualifiers: Respiratory failure complication: hypoxia and hypercapnia Qualified Code(s): J96.21 - Acute and chronic respiratory failure with hypoxia; J96.22 - Acute and chronic respiratory failure with hypercapnia (10) Cirrhosis Status: Chronic Qualifiers: Hepatic cirrhosis type: other cirrhosis Qualified Code(s): K74.69 - Other cirrhosis of liver Hospital course: Mr. Thompson is a 62 year old male Discharge discussed with: patient, social work - Time Spent with Patient Total time spent providing and/or coordinating discharge services: Greater than 30 minutes (45 min) - Discharge Medications Prescriptions: Ipratropium/Albuterol Neb [Duoneb] 3 ml IH Q6HR PRN #60 vial.neb PRN Reason: Shortness Of Breath Carvedilol [Coreg] 6.25 mg PO BIDWM #60 tablet Nebulizer Accessories [Sootheneb [id number] Adult Mask] 1 each MC Q6H PRN #1 each PRN Reason: Shortness Of Breath predniSONE [PredniSONE] 10 mg PO TAPER 14 Days #56 tablet Home Medications: Cholecalciferol (Vitamin D3) [Vitamin D3] 2,000 unit PO BID 03/15/16 [History] Magnesium 400 mg PO BID 03/15/16 [History] Budesonide/Formoterol 80/4.5 [Symbicort 80/4.5] 2 puff IH BIDR #2 inhaler 03/17/16 [Rx] Cyanocobalamin (Vitamin B-12) [Vitamin B12] 1,000 mcg PO BID 04/03/17 [History] Loratadine [Allergy Relief] 10 mg PO DAILY 04/03/17 [History] Omeprazole 20 mg PO DAILY 04/03/17 [History] Aspirin 81 mg PO DAILY tab.chew 09/05/17 [Rx] Atorvastatin [Lipitor] 40 mg PO HS tablet 09/05/17 [Rx] Furosemide [Lasix] 20 mg PO DAILY PRN #30 tablet 12/19/17 [Rx] Oxycodone HCl [Oxaydo] 10 mg PO Q6H 02/24/18 [History] Insulin ASPART [Novolog Flexpen] 5 - 10 unit SQ TIDWM 08/09/18 [History] Insulin DETEMIR [Levemir] 30 unit SQ BID 08/09/18 [History] Ipratropium/Albuterol Sulfate [Combivent Respimat Inhal Thayer] 1 puff IH Q6H PRN 08/09/18 [History] Lactulose 10 gm PO Q8HR 08/09/18 [History] Losartan [Cozaar] 25 mg PO DAILY 08/09/18 [History] Potassium Chloride [K-Tab ER] 20 meq PO DAILY 08/09/18 [History] Sertraline [Zoloft] 50 mg PO DAILY 08/09/18 [History] hydrOXYzine HCl [Hydroxyzine HCl] 25 mg PO HS PRN 08/09/18 [History] Sennosides/Docusate Sodium [Senna-Docusate Sodium Tablet] 1 tab PO HS 10/07/18 [History] Zinc [Zinc Chelated] 50 mg PO BID 10/07/18 [History] Carvedilol [Coreg] 6.25 mg PO BIDWM #60 tablet 10/12/18 [Rx] Ipratropium/Albuterol Neb [Duoneb] 3 ml IH Q6HR PRN #60 vial.neb 10/12/18 [Rx] Nebulizer Accessories [Sootheneb [id number] Adult Mask] 1 each MC Q6H PRN #1 each 10/12/18 [Rx] predniSONE [PredniSONE] 10 mg PO TAPER 14 Days #56 tablet 10/12/18 [Rx] Allergies/Adverse Reactions: Allergy/AdvReac Type Severity Reaction Status Date / Time No Known Allergies Allergy Verified 10/07/18 16:41 Date of admission: 10/07/18 03:04 Primary care physician: PCP DINORAH Consults: 10/11/18 11:19 Consult to Physical Therapy [CONS] Routine Comment: Evaluate, develop and implement POC Reason for Consult: pt reports unsteady gate Does patient have active BEDREST order?: No Is patient medically & hemodynamically stable?: Yes - Constitutional Vitals: Temp Pulse Resp BP Pulse Ox 98.7 F 65 15 147/76 97 10/12/18 11:09 10/12/18 11:35 10/12/18 11:22 10/12/18 11:09 10/12/18 11:22 - Patient Status Disposition: Home Health Service Condition: Fair Functional capacity at discharge: uses cane/walker - Discharge Instructions Instructions: Acute Respiratory Distress Syndrome (DC) [facility]: [facility] - 10/18/18 10:45 am (blue team) Additional Instructions: Patient instructed to follow-up with PCP as well as his Rcis - Diet and Activity Diet: diabetic diet, low fat, low cholesterol, low salt diet - Attending Attestation I examined this patient and my medical decision-making was reviewed with the Resident Physician Dr Medina. I agree with the documented findings, disposition and treatment plan as described except to the extent set forth below. Mr Thompson is currently admitted for acute resp failure with histry copd and non compliance with home treatment Mr Thompson awake, overall feeling improved. sob improved, no cough or wheezing, no new sputum production. denies cp, pressure, palpitations, presyncope. No fevers or chills. discussed treatment/discharge plan and answered all questions gen- alert, awake,appears stated age eyes- pupils equal round cv- reg rate and rhythm, normal s1,s2, no murmurs appreciated lungs- ctabl, diminished in basesno wheezing, rhonchi or crackles, normal resp effort on o2 nc 4L home rate neuro- AAOx3 acute on chronic hypercapnic Resp failure 2/2 non compliance with home treatment - improved, co2 down today with wearing bipap all night, weaned to home O2 nc at rest, repeat 6 min walk today improved from yesterday, educated re bpap hs at home, set up for neb machine and neb treatments prn at home, fu with established outpt pulm COPD, not in acute exacerbation requiring abx and appears to be non compliance with home regimen as cause- nebs, steroids and wean slowly outpt, flu neg this admit HTN- cont coreg outpt fu for further monitoring/adjusting on dc, this is a change form his toprol xl and change made on admit due to asx bradycardia chronic anemia at baseline- fu outpt Altered mental status resolved with resp failure treatment- likely 2/2 co2 retention, no evidence of seizure this admission (has hx of seizure d/o) DM- oresume home regimen on dc Further diagnoses and plan as documented by resident <Chad Medina - Last Filed: 10/13/18 08:23> - NOTES TO OUTPATIENT PROVIDER Notes to Outpatient Provider: -Rx for steroid taper for 14 days written at discharge. -Rx for 5L Cont; Rx for Nebulizer/duonebs. -Toprol switched to Coreg 6.25mg BID. -Patient to follow-up with PCP and Pulm (Dr. 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 complication status: with circulatory complication Diabetes mellitus complication detail: with other circulatory complications Qualified Code(s): E11.59 - Type 2 diabetes mellitus with other circulatory complications; Z79.4 - senior living (current) use of insulin; Z79.4 - senior living (current) use of insulin; Z79.4 - exterminator helper termite (current) use of insulin; Z79.4 - senior living (current) use of insulin (4) Seizure disorder Priority: Secondary Status: Chronic (5) Cirrhosis Priority: Secondary Status: Chronic Qualifiers: Hepatic cirrhosis type: other cirrhosis Qualified Code(s): K74.69 - Other cirrhosis of liver (6) DVT prophylaxis Priority: Secondary Status: Acute Hospital course: Mr. Thompson is a 62 year old male admitted for COPD exacerbation, secondary to bipap noncompliance, patient was agitated on admission, improved with use of NIV; patient did not at first use bipap, agreeing only to nasal cannula hi-leoncio; was on 8L; weaned down with O2 supplementation, early ambulation, steroid taper, and scheduled duonebs/aerosols. He was not started on antibiotics in setting of mechanical/noncompliance component to COPD exacerbation, he did not have infiltrate or PE on CTA obtained during admission. 6min walk demonstrated an increased need to baseline (4L to 5L), he is being discharged in stable condition with new nebulizer/meds, O2 rx, steroid taper for 14 days, and coreg. Discharge discussed with: patient, social work - Time Spent with Patient Total time spent providing and/or coordinating discharge services: Greater than 30 minutes Date of admission: 10/07/18 03:04 Primary care physician: PCP [place] Consults: 10/11/18 11:19 Consult to Physical Therapy [CONS] Routine Comment: Evaluate, develop and implement POC Reason for Consult: pt reports unsteady gate Does patient have active BEDREST order?: No Is patient medically & hemodynamically stable?: Yes - Constitutional Vitals: Temp Pulse Resp BP Pulse Ox 98.7 F 65 15 147/76 97 10/12/18 11:09 10/12/18 11:35 10/12/18 11:22 10/12/18 11:09 10/12/18 11:22 General appearance: Present: A&O X 3. Absent: cooperative, answers questions appropriately Exam: . - Head Head exam: Present: atraumatic, normocephalic - Eye Eye exam: Present: PERRL, conjuntiva pink, sclera anicteric Pupils: Present: PERRL - Neck Neck exam general surgery: Present: supple, trachea midline. Absent: lymphadenopathy - Respiratory Respiratory exam: Present: decreased breath sounds. Absent: accessory muscle use, rales, rhonchi, wheezes - Cardiovascular Cardiovascular exam: Present: RRR, +S1, +S2. Absent: diastolic murmur, gallop, rubs, systolic murmur - GI/Abdominal GI/Abdominal exam: Present: normal bowel sounds, soft, no peritoneal signs. Absent: distended, tenderness - Extremities Exam Extremities exam: Present: warm, radial pulses palpable and symmetrical. Absent: calf tenderness, cyanotic, pedal edema - Neurological Exam Neurological exam: Present: CN II-XII intact, oriented X3, no focal deficits. Absent: pronater drift, facial droop, speech deficit - Skin Skin exam: Present: dry, intact - Patient Status Functional capacity at discharge: independent ambulation Overall status at discharge: patient is progressing back to baseline - Diet and Activity Activity: as per physical therapy, increase activity as tolerated Diet: advance to your usual diet
--- NOTE | 2018-10-12 13:59 | Physician Discharge Referral ---
<Chad Medina - Last Filed: 10/12/18 13:59> Home Health/Hosp Referral Info Transfer to: Home Health Provider in Charge Post Discharge: PCP - Diagnosis (1) Acute and chronic respiratory failure with hypercapnia Priority: Primary Status: Acute (2) Altered mental status Priority: Secondary Status: Resolved (3) Diabetes mellitus, type II Priority: Secondary Status: Chronic (4) Seizure disorder Priority: Secondary Status: Chronic (5) Cirrhosis Priority: Secondary Status: Chronic (6) DVT prophylaxis Priority: Secondary Status: Acute - Respiratory Orders Smoking Cessation: Smoking cessation has been advised. For more information, call the [place] Tobacco Quit Line at 1-065-HKTK-NOW. - Services Needed Following services are medically necessary services: Physical Therapy, Occupational Therapy - Transfer Medications Prescriptions: Ipratropium/Albuterol Neb [Duoneb] 3 ml IH Q6HR PRN #60 vial.neb PRN Reason: Shortness Of Breath Carvedilol [Coreg] 6.25 mg PO BIDWM #60 tablet Nebulizer Accessories [Sootheneb [id number] Adult Mask] 1 each MC Q6H PRN #1 each PRN Reason: Shortness Of Breath predniSONE [PredniSONE] 10 mg PO TAPER 14 Days #56 tablet Home Medications: Cholecalciferol (Vitamin D3) [Vitamin D3] 2,000 unit PO BID 03/15/16 [History] Magnesium 400 mg PO BID 03/15/16 [History] Budesonide/Formoterol 80/4.5 [Symbicort 80/4.5] 2 puff IH BIDR #2 inhaler 03/17/16 [Rx] Cyanocobalamin (Vitamin B-12) [Vitamin B12] 1,000 mcg PO BID 04/03/17 [History] Loratadine [Allergy Relief] 10 mg PO DAILY 04/03/17 [History] Omeprazole 20 mg PO DAILY 04/03/17 [History] Aspirin 81 mg PO DAILY tab.chew 09/05/17 [Rx] Atorvastatin [Lipitor] 40 mg PO HS tablet 09/05/17 [Rx] Furosemide [Lasix] 20 mg PO DAILY PRN #30 tablet 12/19/17 [Rx] Oxycodone HCl [Oxaydo] 10 mg PO Q6H 02/24/18 [History] Insulin ASPART [Novolog Flexpen] 5 - 10 unit SQ TIDWM 08/09/18 [History] Insulin DETEMIR [Levemir] 30 unit SQ BID 08/09/18 [History] Ipratropium/Albuterol Sulfate [Combivent Respimat Inhal [place]] 1 puff IH Q6H PRN 08/09/18 [History] Lactulose 10 gm PO Q8HR 08/09/18 [History] Losartan [Cozaar] 25 mg PO DAILY 08/09/18 [History] Potassium Chloride [K-Tab ER] 20 meq PO DAILY 08/09/18 [History] Sertraline [Zoloft] 50 mg PO DAILY 08/09/18 [History] hydrOXYzine HCl [Hydroxyzine HCl] 25 mg PO HS PRN 08/09/18 [History] Sennosides/Docusate Sodium [Senna-Docusate Sodium Tablet] 1 tab PO HS 10/07/18 [History] Zinc [Zinc Chelated] 50 mg PO BID 10/07/18 [History] Carvedilol [Coreg] 6.25 mg PO BIDWM #60 tablet 10/12/18 [Rx] Ipratropium/Albuterol Neb [Duoneb] 3 ml IH Q6HR PRN #60 vial.neb 10/12/18 [Rx] Nebulizer Accessories [Sootheneb [id number] Adult Mask] 1 each MC Q6H PRN #1 each 10/12/18 [Rx] predniSONE [PredniSONE] 10 mg PO TAPER 14 Days #56 tablet 10/12/18 [Rx] Allergies/Adverse Reactions: Allergy/AdvReac Type Severity Reaction Status Date / Time No Known Allergies Allergy Verified 10/07/18 16:41 Certification: Further, I certify that my clinical findings support that this patient is homebound (i.e. absences from home require considerable and taxing effort and are for medical reasons or sikh services or infrequently or short duration when for other reasons) because: Homebound Reason: Severity of cardiac or pulmonary status limits activity tolerance Attestation: My signature below is to certify that this patient is under my care and that I, or nurse practitioner, or a physician's assistant infant toddler teacher working with me, has a [id number] encounter with this patient. <Paola Mccall - Last Filed: 10/12/18 14:39> - Diagnosis (1) COPD (chronic obstructive pulmonary disease) Status: Acute (2) Diabetes mellitus, type II Status: Chronic (3) DVT prophylaxis Status: Acute (4) Seizure disorder Status: Chronic (5) Hepatitis C Status: Chronic (6) Hypertension Status: Chronic (7) Acute and chronic respiratory failure with hypercapnia Status: Acute (8) Altered mental status Status: Acute (9) Acute and chronic respiratory failure Status: Acute (10) Cirrhosis Status: Chronic - Respiratory Orders Oxygen / L per min (5L), Other (nocturnal bipap) Smoking Cessation: Smoking cessation has been advised. For more information, call the [place] Tobacco Quit Line at 4-489-NCTGNOW. - Diet/Nutrition Diet/Nutrition Orders: Regular, No Added Salt (JAUN), No Concentrated Sweets - Activity Activity Orders: Up ad viki, Shiraz Certification: Further, I certify that my clinical findings support that this patient is homebound (i.e. absences from home require considerable and taxing effort and are for medical reasons or sikh services or infrequently or short duration when for other reasons) because: Attestation: My signature below is to certify that this patient is under my care and that I, or nurse practitioner, or a physician's assistant infant toddler teacher working with me, has a [id number]-[id number] encounter with this patient.
[2018-10-12 15:40] VITALS: BP 164/89
== END 2018-10-12 15:45 | disposition home health service (06) | DRG 189 ==
LOC: 2NNU → SUATTDRO 03:04
PROVIDERS: ADMIT Internal Medicine; ATTEND Internal Medicine

== ENCOUNTER 2018-10-31 17:01 | Inpatient (IN) ==
[2018-10-31] MEDS ORDERED: Acetaminophen 325 MG TABLET PO PRN (20:52)
[2018-10-31] MEDS ORDERED: Naloxone 0.4 MG/ML INJ IVP PRN (20:52)
[2018-10-31] MEDS ORDERED: *HR* Dextrose 50 % in Water (Syg) 50 ML SYRINGE IVP PRN (21:04)
[2018-10-31] MEDS ORDERED: Dextrose Gel 15 GM/37.5 ML TUBE PO PRN ×2 (21:04)
[2018-10-31] MEDS ORDERED: D5% in Water 1,000 ML IVC PRN (21:04)
[2018-10-31] MEDS ORDERED: Ipratropium/Albuterol Neb 3 ML IH PRN (21:10)
[2018-10-31] MEDS ORDERED: Furosemide 20 MG TABLET PO PRN (21:10)
[2018-10-31] MEDS ORDERED: NON-FORMULARY MEDICATION 1 EACH EACH (Ipratropium/Albuterol Sulfate [Combivent Respimat In IH PRN (21:10)
[2018-10-31] MEDS ORDERED: Perflutren Lipid Microsphere 1.3 ML in 0.9 % Sodium Chloride 8.7 ML IVP ONE (21:42)
--- NOTE | 2018-10-31 21:49 | Internal Med History&Physical ---
Date of Encounter: 10/31/18 Time of Encounter: 20:30 Internal Medicine - H&P: HPI Chief complaint: Fx of left femur neck sustained in fall Admitted From: Intrahospital Transfer Plans for Post Hospital Care: Home History of present illness: Mr. Thompson is a 62 year old male w/PMH of alcohol-related cirrhosis, CHF, COPD, CAD, diabetes, hepatitis C, HLD, HTN, liver disease, previous myocardial infarction greater than 1 year ago (pt. states he has stents but cannot recall how many and previous records show heart catheterization on 08/31/17), anxiety, and depression presents from [facility] ED w/CC of left hip pain r/t fall sustained when pt. fell getting out of the bathtub. Pt. states he fell 2-3 days ago and is unsure if he hit his head or lost consciousness. On exam, pt. is not the best historian and appears altered at times. Pt. stated he wanted to be DNRCCA DNI for Code Status, but d/t AMS pts. was called who stated his living will is FULL CODE. Pt. reports he uses 5L O@ @ home continuously and just started seeing Pulmonology earlier this year d/t his COPD. Pt. has hx of cirrhosis and hepatitis C, so ammonia level and hepatic panel ordered d/t AMS. Pt. reports SOB and pain in left hip but denies recent illness, fever, chills, nausea, vomiting, headache, changes in vision, unusual bleeding, chest pain, abdominal pain, diarrhea, constipation, dizziness, lightheadedness, numbness, or tingling. Past Med Surg Social Fam HX - Past Medical History Source: patient, old records reviewed Medical history: cirrhosis, CHF, COPD, coronary artery disease, diabetes, hepatitis, hyperlipidemia, hypertension, liver disease, myocardial infarction, other Additional medical history: chronic back pain, hepatitis C Psychiatric history: anxiety, depression - Past Surgical History Surgical History: cholecystectomy, orthopedic, other Additional surgical history: stent in gallbladder/liver stent, hemerrhoid surgery - Social History Smoking Status: Former smoker Packs per day: >2 PPD. Reports quitting >1 year ago Smokeless Tobacco Status: No Alcohol use: none Drug use: none Current living situation: Home, With Family Activity Level: Independent ambulation Recent Out of Country Travel Within the Last 8 Weeks: No Exposure or Possible Exposure to Illness During Travel: No - Family History Mother Race: Family Member Ethnicity: Non- Living Status: Still Living Hx Family Endocrine Disorder: Yes (DM) Father Race: Family Member Ethnicity: Non- Living Status: Still Living Hx Family Cardiac Disorders: Yes ([place], CABG) Hx Family Endocrine Disorder: Yes (DM) Internal Medicine - H&P: Meds Cholecalciferol (Vitamin D3) [Vitamin D3] 2,000 unit PO BID 03/15/16 [History] Magnesium 400 mg PO BID 03/15/16 [History] Budesonide/Formoterol 80/4.5 [Symbicort 80/4.5] 2 puff IH BIDR #2 inhaler 03/17/16 [Rx] Cyanocobalamin (Vitamin B-12) [Vitamin B12] 1,000 mcg PO BID 04/03/17 [History] Loratadine [Allergy Relief] 10 mg PO DAILY 04/03/17 [History] Omeprazole 20 mg PO DAILY 04/03/17 [History] Aspirin 81 mg PO DAILY tab.chew 09/05/17 [Rx] Furosemide [Lasix] 20 mg PO DAILY PRN #30 tablet 12/19/17 [Rx] Oxycodone HCl [Oxaydo] 10 mg PO Q6H 02/24/18 [History] Insulin ASPART [Novolog Flexpen] 5 - 10 unit SQ TIDWM 08/09/18 [History] Insulin DETEMIR [Levemir] 30 unit SQ BID 08/09/18 [History] Ipratropium/Albuterol Sulfate [Combivent Respimat Inhal [place]] 1 puff IH Q6H PRN 08/09/18 [History] Lactulose 10 gm PO Q8HR 08/09/18 [History] Losartan [Cozaar] 25 mg PO DAILY 08/09/18 [History] Potassium Chloride [K-Tab ER] 20 meq PO DAILY 08/09/18 [History] Sertraline [Zoloft] 50 mg PO DAILY 08/09/18 [History] hydrOXYzine HCl [Hydroxyzine HCl] 25 mg PO HS PRN 08/09/18 [History] Sennosides/Docusate Sodium [Senna-Docusate Sodium Tablet] 1 tab PO HS 10/07/18 [History] Zinc [Zinc Chelated] 50 mg PO BID 10/07/18 [History] Carvedilol [Coreg] 6.25 mg PO BIDWM #60 tablet 10/12/18 [Rx] Ipratropium/Albuterol Neb [Duoneb] 3 ml IH Q6HR PRN #60 vial.neb 10/12/18 [Rx] Nebulizer Accessories [Sootheneb [id number] Adult Mask] 1 each MC Q6H PRN #1 each 10/12/18 [Rx] Allergy/AdvReac Type Severity Reaction Status Date / Time No Known Allergies Allergy Verified 10/07/18 16:41 All Systems PM: A 10-system review of systems was performed and is negative for pertinent findings except as documented above in the HPI. - Constitutional Constitutional: as per HPI, falls, no chills, no fever(s), no night sweats - EENT Eyes: no change in vision, no discharge, no pain, no photophobia Ears: no ear discharge, no ear pain, no tinnitus Nose, mouth and throat: no dysphagia, no nasal discharge, no neck pain, no sore throat - Breasts Breasts: as per HPI - Cardiovascular Cardiovascular ROS IM: as per HPI, dyspnea, dyspnea on exertion, no chest pain, no diaphoresis, no lightheadedness, no palpitations, no syncope - Respiratory Respiratory: as per HPI, dyspnea, dyspnea on exertion, no cough, no wheezing, no excessive phlegm production - Gastrointestinal Gastrointestinal: no abdominal pain, no diarrhea, no hematemesis, no hematochezia, no melena, no nausea, no vomiting - Genitourinary Genitourinary ROS male: as per HPI - Musculoskeletal Musculoskeletal ROS IM: as per HPI, other (Left hip pain d/t fall), no numbness, no tingling - Integumentary Integumentary IM: as per HPI, unusual bruising (Abdomen), no rash - Neurological Neurological ROS: as per HPI, confusion, no convulsions, no focal weakness, no numbness, no tingling, no tremor(s) - Psychiatric Psychiatric: as per HPI, anxiety, depression - Endocrine Endocrine IM: as per HPI - Hematologic/Lymphatic Hematologic/Lymphatic: no easy bruising - Allergic/Immunologic Allergic/Immunologic: as per HPI - Constitutional Vitals: Temp Pulse Resp BP Pulse Ox 98.1 F 84 16 116/73 98 10/31/18 19:35 10/31/18 19:35 10/31/18 19:35 10/31/18 19:35 10/31/18 19:35 General appearance: Present: cooperative, A&O X 2, mild distress (Pain in left hip), obese Exam: Patient examined at bedside. Patient resting in bed but appearing slightly altered on exam. Patient unable to discern what day it is was aware of his name, date of , and where he was. Unable to provide substantial family history. CT of the head/brain ordered due to altered mental status which showed no acute intracranial abnormality but mild chronic encephalomalacia with inferior frontal lobes and right anterior temporal lobe. When questioned about CODE STATUS, pt. stated he wished to be DNRCCA DNI but appeared confused. Pts. contacted who stated the pts. living will states FULL CODE and she will bring in paperwork in a.m. SW consult ordered to provide POA information and paperwork to pts. . Besides pain in left hip and shortness of breath, patient denies any other complaints at this time. VS: 98.1 F temp, HR 84, RR 16, BP 116/73, SPO2 98% on nasal cannula @ 5L. - Head Head exam: Present: atraumatic, normocephalic - Eye Eye exam: Present: PERRL, conjuntiva pink, sclera anicteric Pupils: Present: PERRL - ENT ENT exam: Present: normal exam - Neck Neck exam general surgery: Present: supple, trachea midline. Absent: lymphadenopathy - Respiratory Respiratory exam: Present: accessory muscle use. Absent: rales, rhonchi, wheezes - Cardiovascular Cardiovascular exam: Present: +S1, +S2, tachycardia. Absent: diastolic murmur, gallop, rubs, systolic murmur - GI/Abdominal GI/Abdominal exam: Present: normal bowel sounds, soft, no peritoneal signs. Absent: distended, tenderness - Rectal Rectal exam: Present: deferred - Additional comments: exam deferred. - Extremities Exam Extremities exam: Present: warm, radial pulses palpable and symmetrical. Absent: calf tenderness, cyanotic, pedal edema - Back Exam Back exam: Present: normal inspection - Neurological Exam Neurological exam: Present: altered, CN II-XII intact, no focal deficits. Absent: pronater drift, facial droop, speech deficit - Psychiatric Psychiatric exam: Present: flat affect - Skin Skin exam: Present: dry, intact Internal Med - H&P Results - Labs CBC & Chem 7: 10/31/18 21:37 10/31/18 21:37 - Impressions ITS Impressions Head CT 10/31/18 20:05 IMPRESSION: No acute intracranial abnormality. Mild chronic encephalomalacia both inferior frontal lobes and right anterior temporal lobe. D/ / Abbe Fonseca / Abbe Fonseca Interpreting Provider: Abbe Fonseca - Diagnostic Studies Chest x-ray Additional comments: Impressions EXAMINATION: SINGLE XRAY VIEW OF THE CHEST 10/31/2018 3:41 pm COMPARISON: One view of the chest 08/23/2017 HISTORY: ORDERING SYSTEM PROVIDED HISTORY: PRE OP FINDINGS: Significant relative elevation of the right hemidiaphragm. Heart size not substantially changed. Left perihilar linear opacity consistent with subsegmental atelectasis. Left costophrenic angle excluded from field of view. Right costophrenic angle is preserved. No pneumothorax is visible. XR/XR chest 1V IMPRESSION: Chronic right hemidiaphragm elevation. No acute findings in the chest. D/ / Edilberto Garcia MD / Edilberto Garcia MD Interpreting Provider: Edilberto Garcia MD CT scan - head Additional comments: Impressions Head CT 10/31/18 20:05 IMPRESSION: No acute intracranial abnormality. Mild chronic encephalomalacia both inferior frontal lobes and right anterior temporal lobe. D/ / Abbe Fonseca / Abbe Fonseca Interpreting Provider: Abbe Fonseca Other Images Additional comments: Impressions EXAMINATION: FOUR XRAY VIEWS OF THE LEFT HIP 10/31/2018 3:41 pm COMPARISON: 10/26/2017. HISTORY: ORDERING SYSTEM PROVIDED HISTORY: fall yest, hip pain, leg short/rotated FINDINGS: Acute, comminuted, and displaced left proximal femur fracture. No evidence of left hip dislocation. The sacroiliac joints are symmetric. The pubic symphysis appears aligned. Degenerative changes of the right hip. Degenerative changes of the lower lumbar spine. XR/XR hip complete LT IMPRESSION: Acute, comminuted, displaced left proximal femur fracture. No evidence of dislocation. Severe osteopenia. Degenerative changes of the lower lumbar spine and bilateral hips. D/ : / 10/31/2018 15:54:36 Mayito Delgado MD / gillian Interpreting Provider: Mayito Delgado MD - Assessment and plan (1) Fracture of hip Current Visit: Yes Status: Acute Assessment and plan: Acute fx of neck of left femur sustained when pt. fell getting out of the bathtub. Pt. states he fell 2-3 days ago and is unsure if he hit his head or lost consciousness. On exam, pt. is not the best historian and appears altered at times. XR of the left hip shows acute, comminuted, and displaced left proximal femur fracture. No evidence of dislocation. Severe osteopenia with degenerative changes of the lower lumbar spine and bilateral hips. Surgical consult ordered while pt. was at [facility]. Formal consult ordered and I discussed pt. w/Dr. Newell informing him of Echocardiogram for surgical clearance and pts. current AMS. Plan is for surgery in a.m. I appreciate the consult and recommendations as always. NPO at midnight. Bilateral foot pumps on LEs for DVT prophylaxis. Tylenol and Ultram ordered for pain control d/t current AMS. SW/PT/OT consults ordered to assess for rehabilitation needs for post- discharge planning. Pt. is high risk for further morbidity and complications d/t current O2 dependence @ 5L, current AMS most likely d/t cirrhotic liver complicated by Hepatitis C, hx of cardiac disease w/impending surgical intervention; and risk factors of CHF, COPD, CAD, diabetes, HTN, and previous [place]. Inpatient. Qualifiers: Encounter type: initial encounter Fracture type: closed Laterality: left Qualified Code(s): S72.002A - Fracture of unspecified part of neck of left femur, initial encounter for closed fracture (2) Altered mental status Current Visit: Yes Status: Acute Assessment and plan: Acute AMS on exam. Patient has history of alcoholic related cirrhosis as well as hepatitis C. Ammonia level ordered which was WNL. CT of head/brain without contrast shows no acute intracranial abnormality and mild chronic encephalomalacia both inferior frontal lobes and right anterior temporal lobe. Will continue pts. PO lactulose and order RC if pt. unable to take PO. ABG ordered which showed elevated CO2. Pt. placed on BiPAP and RT consult ordered. Monitor pt. closely for signs of worsening AMS or neurologic changes d/t hx of seizures. Qualifiers: Altered mental status type: disorientation Qualified Code(s): R41.0 - Disorientation, unspecified (3) CHF (congestive heart failure) Current Visit: Yes Status: Chronic Assessment and plan: Hx of chronic CHF. Currently stable. Pt. does not have pedal edema present on exam in LEs. Echocardiogram dated 08/22/17 showed technically suboptimal study due to clinical status, LVEF of 60-65%, normal LV chamber size and wall thickness and function, atypical septal motion noted, and right ventricle appeared dilated and hypokinetic. Continuous cardiac telemetry. New Echocardiogram ordered for surgery clearance. Continuous cardiac telemetry. Monitor pt. for signs of fluid overload. Will add daily fluid restriction if pt. shows signs of CHF. Continue patient's by mouth Lasix daily. Monitor I&O and daily weight. Qualifiers: Heart failure type: unspecified Heart failure chronicity: chronic Qualified Code(s): I50.9 - Heart failure, unspecified (4) COPD (chronic obstructive pulmonary disease) Current Visit: Yes Status: Chronic Assessment and plan: Hx of chronic COPD. Stable. Pt. wears 5L home O2 continuously. SOB on exam which he states is his baseline. Supplemental O2 with titration and SPO2 monitoring. Continue patient's Symbicort, scheduled DuoNeb's, inhaler, and supplemental O2 with titration and SPO2 monitoring. Qualifiers: COPD type: COPD with acute exacerbation Qualified Code(s): J44.1 - Chronic obstructive pulmonary disease with (acute) exacerbation (5) HLD (hyperlipidemia) Current Visit: Yes Status: Chronic Assessment and plan: Hx of chronic HLD. Lipid panel in a.m. labs. Pt. does not currently take a statin. Consider adding statin to pts. medications at discharge if lipid panel warrants. Qualifiers: Hyperlipidemia type: pure hypercholesterolemia Qualified Code(s): E78.00 - Pure hypercholesterolemia, unspecified; E78.0 - Pure hypercholesterolemia (6) HTN (hypertension) Current Visit: Yes Status: Chronic Assessment and plan: Hx of chronic HTN. Monitor pt. and VS. Continue pts. Coreg. Qualifiers: Hypertension type: essential hypertension Qualified Code(s): I10 - Essential (primary) hypertension (7) Diabetes mellitus, type II Current Visit: Yes Status: Chronic Assessment and plan: Hx of chronic diabetes controlled with NovoLog flex pen. Will hold patient's NovoLog and administer pts. Levemir and low-dose correction sliding scale insulin with hypoglycemic protocol. BG checks before meals at bedtime. A1c in a.m. labs. 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 relates is d/t alcohol hx. Hepatic panel ordered. Pt. denies recent alcohol use. D/t current AMS and reported alcohol hx, ethanol level ordered which is <10. Continue pts. PO lactulose. Qualifiers: Hepatic cirrhosis type: other cirrhosis Qualified Code(s): K74.69 - Other cirrhosis of liver (9) Hepatitis C Current Visit: Yes Status: Chronic Assessment and plan: Hx of chronic hepatitis C. Hepatic panel and hepatitis C viral Quant ordered. Qualifiers: Viral hepatitis chronicity: chronic Hepatic coma status: without hepatic coma Qualified Code(s): B18.2 - Chronic viral hepatitis C (10) Seizure disorder Current Visit: Yes Status: Chronic Assessment and plan: Pt. reports hx of seizure disorder but is not currently on medications for seizures. Monitor closely for neurologic changes. Cardiac telemetry. CT of the head/brain ordered d/t AMS which shows no acute intracranial abnormality and mild chronic encephalomalacia both inferior frontal lobes and right anterior temporal lobe. (11) GERD (gastroesophageal reflux disease) Current Visit: Yes Status: Chronic Assessment and plan: Hx of chronic GERD. Continue patient's by mouth omeprazole. 4 mg IVP Zofran every 6 hours when necessary for nausea and vomiting. Qualifiers: Esophagitis presence: esophagitis presence not specified Qualified Code(s): K21.9 - Gastro-esophageal reflux disease without esophagitis (12) Anxiety and depression Current Visit: Yes Status: Chronic Assessment and plan: Hx of chronic anxiety and depression. Continue pts. Zoloft and hydroxyzine. (13) Previous myocardial infarction older than 8 weeks Current Visit: Yes Status: Resolved Assessment and plan: Pts. records show heart catheterization on 08/31/17. Echocardiogram dated 08/22/17 showed technically suboptimal study due to clinical status, LVEF of 60- 65%, normal LV chamber size and wall thickness and function, atypical septal motion noted, and right ventricle appeared dilated and hypokinetic. Continuous cardiac telemetry. (14) DVT prophylaxis Current Visit: Yes Status: Acute Assessment and plan: Bilateral foot pumps on LEs d/t planned surgical intervention for left femur fx. - Time Spent With Patient Total time spent is greater than 50% in coordination of care (as documented) at patient's floor/unit and/or counseling patient: Greater than 35 minutes
[2018-10-31 21:52] LABS: Hematocrit 29.9 % (37.5-50.1); Hemoglobin 9.3 g/dL (12.9-16.9); Immature Granulocytes % 0.3 % (0-4); Lymphocytes % 15.1 %; Mean Corpuscular HGB Conc 31.1 g/dL (31.6-35.5); Mean Corpuscular Hemoglobin 27.2 pg (28.0-33.3); Mean Corpuscular Volume 87.4 fL (83.0-100.0); Platelet Count 133 K/mcL (140-400); Red Blood Count 3.42 M/mcL (4.19-5.50); Red Cell Distribution Width 13.6 % (11.5-14.5); Segmented Neutrophils % 74.2 %
[2018-10-31 21:53] LABS: Basophils % 0.3 %; Eosinophils # 0.1 K/mcL (0.0-0.6); Eosinophils % 1.3 %; Monocytes # 0.6 K/mcL (0.0-1.3); Monocytes % 8.8 %
[2018-10-31 22:17] LABS: Alanine Aminotransferase 23 Units/L (7-52); Albumin 3.2 g/dL (3.5-5.7); Albumin/Globulin Ratio 1.2 (1.1-2.2); Alkaline Phosphatase 67 Units/L (34-104); Aspartate Amino Transferase 18 Units/L (13-39); BUN/Creatinine Ratio 19 (6-26); Bilirubin,Direct 0.1 mg/dL (0.0-0.2); Bilirubin,Indirect 0.4 mg/dL (0.0-1.2); Bilirubin,Total 0.5 mg/dL (0.3-1.0); Blood Urea Nitrogen 19 mg/dL (8-23); Calcium 8.7 mg/dL (8.6-10.3); Carbon Dioxide 44 mEq/L (23-29); Chloride 87 mEq/L (98-107); Ethanol < 10 mg/dL (Less than 10); Globulin 2.7 g/dL (2.4-3.5); Glucose 217 mg/dL (70-105); Osmolality,Calculated 287 (280-300); Potassium 4.6 mEq/L (3.5-5.1); Sodium 134 mEq/L (136-145); Total Protein 5.9 g/dL (6.4-8.9); eGFR For Non-African Americans > 60 (> 60)
[2018-10-31] MEDS: Budesonide/Formoterol 80/4.5 MDI IH SCH (22:46)
[2018-10-31] MEDS: Insulin LISPRO 300 UNITS/3 ML VIAL SQ SCH (23:30)
[2018-10-31 23:32] LABS: ABG Base Excess 16 mEq/L (-2 to 3); ABG HCO3 44 mEq/L (21-27); ABG Oxygen Saturation 96 % (95-98); ABG PCO2 77 mmHg (35-45); ABG PH 7.36 pH Units (7.32-7.45); ABG PO2 87 mmHg (85-104); ABG TCO2 46 mEq/L (20-26); Blood Gas Modality BiLevel
[2018-11-01] MEDS ORDERED: Ondansetron 4 MG/2 ML VIAL IVP PRN (00:19)
[2018-11-01] MEDS: Lactulose Oral Soln 20 GM/30 ML UDC PO SCH ×3 (00:25→15:40)
[2018-11-01] MEDS: traMADol 50 MG TABLET PO PRN ×2 (05:33→15:40)
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
[2018-11-01 07:14] LABS: Basophils % 0.3 %; Eosinophils # 0.2 K/mcL (0.0-0.6); Eosinophils % 2.9 %; Hematocrit 28.9 % (37.5-50.1); Hemoglobin 8.9 g/dL (12.9-16.9); Immature Granulocytes % 0.5 % (0-4); Lymphocytes # 1.1 K/mcL (0.6-4.6); Lymphocytes % 18.3 %; Mean Corpuscular HGB Conc 30.8 g/dL (31.6-35.5); Mean Corpuscular Volume 87.6 fL (83.0-100.0); Mean Platelet Volume 10.4 fL (9.4-12.4); Monocytes # 0.5 K/mcL (0.0-1.3); Monocytes % 7.4 %; Neutrophils # 4.3 K/mcL (1.6-8.9); Platelet Count 124 K/mcL (140-400); Red Cell Distribution Width 13.5 % (11.5-14.5); Segmented Neutrophils % 70.6 %
[2018-11-01 07:33] LABS: Alanine Aminotransferase 22 Units/L (7-52); Albumin 3.1 g/dL (3.5-5.7); Albumin/Globulin Ratio 1.2 (1.1-2.2); Alkaline Phosphatase 63 Units/L (34-104); Aspartate Amino Transferase 17 Units/L (13-39); BUN/Creatinine Ratio 21 (6-26); Bilirubin,Total 0.5 mg/dL (0.3-1.0); Blood Urea Nitrogen 19 mg/dL (8-23); Calcium 8.7 mg/dL (8.6-10.3); Carbon Dioxide 44 mEq/L (23-29); Chloride 89 mEq/L (98-107); Chol/HDL Ratio 4.2 (0-4.9); Cholesterol 113 mg/dL (< 200); Globulin 2.5 g/dL (2.4-3.5); Glucose 130 mg/dL (70-105); HDL Cholesterol 27 mg/dL (40-59); LDL Cholesterol,Calculated 59 mg/dL (0-99); Magnesium 1.9 mg/dL (1.6-2.6); Osmolality,Calculated 286 (280-300); Sodium 136 mEq/L (136-145); Total Protein 5.6 g/dL (6.4-8.9); Triglycerides 134 mg/dL (< 150); eGFR For Non-African Americans > 60 (> 60)
[2018-11-01 09:00] LABS: ABG Base Excess 18 mEq/L (-2 to 3); ABG HCO3 46 mEq/L (21-27); ABG Oxygen Saturation 91 % (95-98); ABG PCO2 76 mmHg (35-45); ABG PH 7.39 pH Units (7.32-7.45); ABG PO2 67 mmHg (85-104); ABG TCO2 48 mEq/L (20-26); Blood Gas Modality BiLevel; Blood Gas PEEP 8 cm H2O; Blood Gas VT 550 cc
[2018-11-01] MEDS ORDERED: ZINC 50 MG PO SCH (09:00)
[2018-11-01] MEDS: Loratadine 10 MG TABLET PO SCH (09:46)
[2018-11-01] MEDS: Aspirin 81 MG TAB.CHEW PO SCH (09:46)
[2018-11-01] MEDS: Insulin LISPRO 300 UNITS/3 ML VIAL SQ SCH ×4 (09:46→20:33)
[2018-11-01] MEDS: Magnesium Oxide 400 MG TABLET PO SCH ×3 (09:46→20:31)
[2018-11-01] MEDS: Cholecalciferol (D-3) 1,000 UNIT TABLET PO SCH (09:46)
[2018-11-01] MEDS: Cyanocobalamin (B-12) 1,000 MCG TABLET PO SCH ×2 (09:46→20:31)
[2018-11-01] MEDS: Insulin DETEMIR 100 UNIT/ML X5UNITS SQ SCH ×2 (09:57→20:30)
[2018-11-01] MEDS ORDERED: *HR* OxyCODONE Immed Rel 5 MG TABLET PO ONE (10:18)
[2018-11-01 10:33] LABS: Estimated Average Glucose 189 mg/dl; Hemoglobin A1C 8.2 %
[2018-11-01] MEDS: Budesonide/Formoterol 80/4.5 MDI IH SCH ×2 (10:42→22:33)
--- NOTE | 2018-11-01 11:33 | Palliative - Consult Note ---
<Hali Sandoval - Last Filed: 11/01/18 11:28> Date of Encounter: 11/01/18 Time of Encounter: 10:30 - Assessment and Plan (1) Acute exacerbation of chronic obstructive airways disease Current Visit: No Status: Acute Assessment and plan: SOB worsened. Baseline on BIPAP at night and oxygen [place] 4L at home. He is curren tly needing BIPAP constantly except for medications. Primary team managing. (2) Fracture of hip Current Visit: Yes Status: Acute Assessment and plan: Left hip fracture currently being managed by Ortho. Plan for surgery today. Plan: - surgery today - restart home regiment for pain: Oxycodone 10mg Q6Hs Qualifiers: Encounter type: initial encounter Fracture type: closed Laterality: left Qualified Code(s): S72.002A - Fracture of unspecified part of neck of left femur, initial encounter for closed fracture (3) Counseling regarding goals of care Current Visit: Yes Status: Acute Assessment and plan: Discussed with patient and with that he has a living will that states that he wants to be full code. Patient's will bring in form today. Palliative-CN HPI - Data of Consult Patient: new to practice Consult date: 11/01/18 Requesting Physician: Noel Wooten MD [facility] Provider[facility] - Consult Narrative Palliative Care/Comfort Measures: Palliative care Reason for consult: code status History of present illness: Mr. Thompson is a 62 year old male PMH of alcohol-related cirrhosis, CHF, COPD, CAD, diabetes, hepatitis C, HLD, HTN, liver disease, AR with stents, anxiety, and depression presents from [facility] ED w/CC of left hip pain after fall. Per H&P, patient stated that his code status was DNR-CCA DNI but there were concerns as patient was AMS at the time. Patient's was called and she stated that he has a living will that says he is full code. Today discussed with patient, and he states that what he desires is all written down. I called the this morning who states that his living will says full code and that she will bring in the papers today. Admits to SOB, left hip pain, and sweating. Denies chest pain or palpitations. CC: Noel Wooten MD - Time Spent with Patient Time: Total time spent is greater than 50% in coordination of care (as documented) at patient's floor/unit and/or counseling patient: Past Med Surg Social Fam HX - Past Medical History Medical history: cirrhosis, CHF, COPD, coronary artery disease, diabetes, hepatitis, hyperlipidemia, hypertension, liver disease, myocardial infarction, other Additional medical history: chronic back pain, hepatitis C Psychiatric history: anxiety, depression - Past Surgical History Surgical History: cholecystectomy, orthopedic, other Additional surgical history: stent in gallbladder/liver stent, hemerrhoid surgery - Social History Smoking Status: Former smoker Packs per day: >2 PPD. Reports quitting >1 year ago Smokeless Tobacco Status: No Alcohol use: none Drug use: none - Family History Mother Race: Family Member Ethnicity: Non- Living Status: Still Living Hx Family Endocrine Disorder: Yes (DM) Father Race: Family Member Ethnicity: Non- Living Status: Still Living Hx Family Cardiac Disorders: Yes (AR, CABG) Hx Family Endocrine Disorder: Yes (DM) Medications and Allergies Cholecalciferol (Vitamin D3) [Vitamin D3] 2,000 unit PO BID 03/15/16 [History] Magnesium 400 mg PO BID 03/15/16 [History] Budesonide/Formoterol 80/4.5 [Symbicort 80/4.5] 2 puff IH BIDR #2 inhaler 03/17/16 [Rx] Cyanocobalamin (Vitamin B-12) [Vitamin B12] 1,000 mcg PO BID 04/03/17 [History] Loratadine [Allergy Relief] 10 mg PO DAILY 04/03/17 [History] Omeprazole 20 mg PO DAILY 04/03/17 [History] Aspirin 81 mg PO DAILY tab.chew 09/05/17 [Rx] Furosemide [Lasix] 20 mg PO DAILY PRN #30 tablet 12/19/17 [Rx] Oxycodone HCl [Oxaydo] 10 mg PO Q6H 02/24/18 [History] Insulin ASPART [Novolog Flexpen] 5 - 10 unit SQ TIDWM 08/09/18 [History] Insulin DETEMIR [Levemir] 30 unit SQ BID 08/09/18 [History] Ipratropium/Albuterol Sulfate [Combivent Respimat Inhal [place]] 1 puff IH Q6H PRN 08/09/18 [History] Lactulose 10 gm PO Q8HR 08/09/18 [History] Losartan [Cozaar] 25 mg PO DAILY 08/09/18 [History] Potassium Chloride [K-Tab ER] 20 meq PO DAILY 08/09/18 [History] Sertraline [Zoloft] 50 mg PO DAILY 08/09/18 [History] hydrOXYzine HCl [Hydroxyzine HCl] 25 mg PO HS PRN 08/09/18 [History] Sennosides/Docusate Sodium [Senna-Docusate Sodium Tablet] 1 tab PO HS 10/07/18 [History] Zinc [Zinc Chelated] 50 mg PO BID 10/07/18 [History] Carvedilol [Coreg] 6.25 mg PO BIDWM #60 tablet 10/12/18 [Rx] Ipratropium/Albuterol Neb [Duoneb] 3 ml IH Q6HR PRN #60 vial.neb 10/12/18 [Rx] Nebulizer Accessories [Sootheneb [id number] Adult Mask] 1 each MC Q6H PRN #1 each 10/12/18 [Rx] Sulfamethoxazole/Trimeth DS [Bactrim DS] 1 each PO BID 11/01/18 [History] Allergy/AdvReac Type Severity Reaction Status Date / Time No Known Allergies Allergy Verified 10/07/18 16:41 All systems: reviewed and no additional remarkable complaints except as stated Palliative Care-Exam - Constitutional Vitals: Temp Pulse Resp BP Pulse Ox 98.1 F 94 19 141/82 94 11/01/18 11:23 11/01/18 11:23 11/01/18 11:23 11/01/18 11:23 11/01/18 11:23 - Other Additional findings: Constitutional: Alert, in mild respiratory distress, diaphoretic Head: Normocephalic, atraumatic, normal contour and symmetric, no masses, Heart: Normal, regular rate and rhythm, systolic murmurs Lungs: Initially on oxy mask with labored breathing, accessory muscle use and unable to complete a full sentence without needing to take another breath, BIPAP placed and increase comfort in breathing, lungs with decrease air movement bilaterally, no wheezes, rales, or rhonchi Abdomen: Soft, nondistended, nontender, and no masses palpable, no guarding or rigidity. Extremities: bilateral +1 LE edema, No clubbing, cyanosis, , radial pulse +2/4, capillary refill <2sec. Skin: Skin diaphoretic, pale, bruising on arm, no rashes, no jaundice Neurologic: alert, speech clear, thought process logical Psych: Cooperative with exam, good eye contact, cognitive function intact, Internal Medicine - CN: Reslt - Labs CBC & Chem 7: 11/01/18 06:40 11/01/18 06:40 Labs: Short CBC 10/31/18 11/01/18 Range/Units 21:37 06:40 WBC 6.8 6.1 (4.3-11.1) K/mcL Hgb 9.3 L 8.9 L (12.9-16.9) g/dL Hct 29.9 L 28.9 L (37.5-50.1) % Plt Count 133 L 124 L (140-400) K/mcL Neutrophils # 5.0 4.3 (1.6-8.9) K/mcL BMP 10/31/18 11/01/18 21:37 06:40 Sodium 134 L 136 Potassium 4.6 4.0 Chloride 87 L 89 L Carbon Dioxide 44 H* 44 H* BUN 19 19 Creatinine 1.00 0.91 Glucose 217 H 130 H Calcium 8.7 8.7 Liver Function 10/31/18 11/01/18 Range/Units 21:37 06:40 Total Bilirubin 0.5 0.5 (0.3-1.0) mg/dL Direct Bilirubin 0.1 (0.0-0.2) mg/dL AST 18 17 (13-39) Units/L ALT 23 22 (7-52) Units/L Alkaline Phosphatase 67 63 (34-104) Units/L Albumin 3.2 L 3.1 L (3.5-5.7) g/dL - ABG Interpretation ABG results: ABG ABG pH 7.39 pH Units (7.32-7.45) 11/01/18 08:56 ABG pCO2 76 mmHg (35-45) H* 11/01/18 08:56 ABG pO2 67 mmHg (85-104) L 11/01/18 08:56 ABG O2 Saturation 91 % (95-98) L 11/01/18 08:56 - Impressions Impressions Echocardiogram 10/31/18 19:49 Impressions: LVEF 70%.Normal LV chamber size, wall thickness and function. Normal right ventricular structure and function. No significant valvular dysfunction. No evidence of pulmonary hypertension. Left Ventricular Wall Motion: Rest Echo Findings All wall segments showed normal motion. Findings: Study Quality * Technically adequate exam. ECG Findings * Normal sinus rhythm. Left Ventricle * LVEF 70%. * Normal LV chamber size, wall thickness and function. * Normal left ventricular diastolic function. Right Ventricle * Normal right ventricular structure and function. Left Atrium * Normal left atrial size. Right Atrium * Normal right atrial size. Interatrial Septum * Interatrial septum not well evaluated. * No evidence of PFO by color Doppler. Aortic Valve * Trileaflet aortic valve with normal function. * No aortic stenosis. * No aortic regurgitation. Mitral Valve * Normal mitral valve structure and function. * No mitral stenosis. * No mitral regurgitation. Tricuspid Valve * Normal tricuspid valve structure and function. * No tricuspid stenosis. * Trace tricuspid regurgitation. * Unable to estimate RVSP due to lack of TR jet. * No evidence of pulmonary hypertension. Pulmonic Valve * Pulmonic valve is not well visualized. * No pulmonic stenosis. * Trace pulmonic regurgitation. Aorta * Normally sized aortic root. Pericardium * The pericardium appears normal. IVC * The IVC is not dilated. * < 50% respiratory change. Head CT 10/31/18 20:05 IMPRESSION: No acute intracranial abnormality. Mild chronic encephalomalacia both inferior frontal lobes and right anterior temporal lobe. D/ / Abbe Fonseca / Abbe Fonseca Interpreting Provider: Abbe Fonseca Consult Discharge Plan - Plan [facility]errals: [facility] [Primary Care Provider] - Palliative Quality Palliative Quality: Screen for Code Status: Yes, Screen for Goals of Care: Yes, Screen for Pain: Yes, If Pain Regimen Started, Initiate Bowel Regimen: Yes, Screen for Nausea/Vomitting: NA Code Status: 10/31/18 21:46 CODE [Resuscitation Status: Active] [RES] Routine Comment: Nurse discussed w/pts. d/t pts. AMS Resuscitation Status: Full Code <Marylin Allison - Last Filed: 11/01/18 17:18> Date of Encounter: 11/01/18 Palliative-CN HPI - Data of Consult Requesting Physician: Noel Wooten MD Primary Care Provider: [facility] - Consult Narrative History of present illness: Mr. Thompson is a 62 year old male CC: Noel Wooten MD - Time Spent with Patient Time: Total time spent is greater than 50% in coordination of care (as documented) at patient's floor/unit and/or counseling patient: Palliative Care-Exam - Constitutional Vitals: Temp Pulse Resp BP Pulse Ox 98.5 F 94 19 143/81 95 11/01/18 16:27 11/01/18 16:27 11/01/18 16:27 11/01/18 16:27 11/01/18 16:27 Internal Medicine - CN: Reslt - Labs CBC & Chem 7: 11/01/18 06:40 11/01/18 06:40 Labs: Short CBC 10/31/18 11/01/18 Range/Units 21:37 06:40 WBC 6.8 6.1 (4.3-11.1) K/mcL Hgb 9.3 L 8.9 L (12.9-16.9) g/dL Hct 29.9 L 28.9 L (37.5-50.1) % Plt Count 133 L 124 L (140-400) K/mcL Neutrophils # 5.0 4.3 (1.6-8.9) K/mcL BMP 10/31/18 11/01/18 21:37 06:40 Sodium 134 L 136 Potassium 4.6 4.0 Chloride 87 L 89 L Carbon Dioxide 44 H* 44 H* BUN 19 19 Creatinine 1.00 0.91 Glucose 217 H 130 H Calcium 8.7 8.7 Liver Function 10/31/18 11/01/18 Range/Units 21:37 06:40 Total Bilirubin 0.5 0.5 (0.3-1.0) mg/dL Direct Bilirubin 0.1 (0.0-0.2) mg/dL AST 18 17 (13-39) Units/L ALT 23 22 (7-52) Units/L Alkaline Phosphatase 67 63 (34-104) Units/L Albumin 3.2 L 3.1 L (3.5-5.7) g/dL - ABG Interpretation ABG results: ABG ABG pH 7.39 pH Units (7.32-7.45) 11/01/18 08:56 ABG pCO2 76 mmHg (35-45) H* 11/01/18 08:56 ABG pO2 67 mmHg (85-104) L 11/01/18 08:56 ABG O2 Saturation 91 % (95-98) L 11/01/18 08:56 - Impressions Impressions Echocardiogram 10/31/18 19:49 Impressions: LVEF 70%.Normal LV chamber size, wall thickness and function. Normal right ventricular structure and function. No significant valvular dysfunction. No evidence of pulmonary hypertension. Left Ventricular Wall Motion: Rest Echo Findings All wall segments showed normal motion. Findings: Study Quality * Technically adequate exam. ECG Findings * Normal sinus rhythm. Left Ventricle * LVEF 70%. * Normal LV chamber size, wall thickness and function. * Normal left ventricular diastolic function. Right Ventricle * Normal right ventricular structure and function. Left Atrium * Normal left atrial size. Right Atrium * Normal right atrial size. Interatrial Septum * Interatrial septum not well evaluated. * No evidence of PFO by color Doppler. Aortic Valve * Trileaflet aortic valve with normal function. * No aortic stenosis. * No aortic regurgitation. Mitral Valve * Normal mitral valve structure and function. * No mitral stenosis. * No mitral regurgitation. Tricuspid Valve * Normal tricuspid valve structure and function. * No tricuspid stenosis. * Trace tricuspid regurgitation. * Unable to estimate RVSP due to lack of TR jet. * No evidence of pulmonary hypertension. Pulmonic Valve * Pulmonic valve is not well visualized. * No pulmonic stenosis. * Trace pulmonic regurgitation. Aorta * Normally sized aortic root. Pericardium * The pericardium appears normal. IVC * The IVC is not dilated. * < 50% respiratory change. Head CT 10/31/18 20:05 IMPRESSION: No acute intracranial abnormality. Mild chronic encephalomalacia both inferior frontal lobes and right anterior temporal lobe. D/ / Abbe Fonseca / Abbe Fonseca Interpreting Provider: Abbe Fonseca - Attending Attestation I performed a history and physical examination of the patient and discussed his management with the resident. I reviewed the residents note and agree with the documented findings and plan of care, except as follow: Patient was seen this morning with resident, he was alert and on nasal cannula, using accessory muscles. Patient became diaphoretic and had to be put back on the BiPAP. He complained of pain and was given 1 dose of OxyContin 10 mg. Patient was then started on his oxycodone 10 mg every 6 hours as per home medication. Patient takes oxycodone at home for chronic back pain I reevaluated the patient in the afternoon, Mary was present at the bedside. She stated that patient at home at his baseline uses oxygen 4 L/m by nasal cannula and BiPAP at night. Patient is very short of breath with minimal exertion. states she brought in patient's leaving will, not yet scanned in the chart. As per her understanding, pt wants to remain full code, wants everything done if there is a chance that he will get better. He does not wish to have any long-term life support and relies on the to discontinue life support as needed. Patient and are very worried and anxious about upcoming surgery. Emotiona support provided. Palliative care will continue further goals of care discussion and advanced care planning once pt is stable after surgery. Palliative Quality Code Status: 10/31/18 21:46 CODE [Resuscitation Status: Active] [RES] Routine Comment: Nurse discussed w/pts. d/t pts. AMS Resuscitation Status: Full Code
[2018-11-01] MEDS: *HR* Heparin 5,000 UNIT/ML VIAL SQ SCH ×2 (14:01→20:32)
--- NOTE | 2018-11-01 14:16 | Internal Med Progress Note ---
Hospitalist Progress Note - Encounter Date of Encounter: 11/01/18 Time of Encounter: 08:30 - Subjective Interval History: patient was seen and examined at bedside. at bedside. I discussed plan of care and they are in agreeement understanding that he is high risk for surgery. he is complaining of hip pain , denies N/V/D, SOB, Chess pain, n/v/D. - Exam Vitals: Temp Pulse Resp BP Pulse Ox 98.1 F 94 19 141/82 94 11/01/18 11:23 11/01/18 11:23 11/01/18 11:23 11/01/18 11:23 11/01/18 11:23 Exam: General: Patient is alert, oriented, no acute distress, obese, speaks in full sentences Head: atraumatic, normocephalic, Eye: normal appearance, PERRL, no scleral icterus, no conjunctival injection ENT: mucous membranes moist, normal external ear exam Neck: normal inspection, trachea midline, full ROM, Chest: normal inspection, symmetric chest rise Respiratory: Decreased breath sounds secondary to body habitus, no crackles, no wheezing in the anterior chest. Cardiovascular: Regular rate and rhythm. s1 and s2 No clicks, rubs, gallops, or murmors. Abdomen: Bowel sounds present normoactive x-4 quadrants. Abdomen is soft, nondistended. no Epigastric tenderness. No guarding or rebound. No organomegaly noted, obese, no ascites appreciated musculoskeletal: Spontaneously moving all extremities. ROM reduced and the left hip negative fracture, able to move toes. Pulses intact Skin: warm, dry, intact. Neuro: Alert and oriented x3 (place, time, person). Has bilateral intention tremors, no focal deficit Psych: Patient's affect is normal - Assessment and Plan (1) Fracture of hip Current Visit: Yes Status: Acute Assessment and Plan: Acute fx of neck of left femur sustained s/p mechanical fall XR of the left hip shows acute, comminuted, and displaced left proximal femur fracture. No evidence of dislocation. Severe osteopenia with degenerative changes of the lower lumbar spine and bilateral hips. orthopedics on board for OR High risk for surgery due to multiple comorbidities mentioned below heparin sc for DVT prophylaxis - watch platelets Pt/OT CM / SW (2) Chronic respiratory failure with hypercapnia Current Visit: Yes Status: Acute Assessment and Plan: PCO2 ranges in the 70s to 80s avoid excessive O2 as he is a chronic retainer continue bipap home settings continue with O2 as per home settings - keep sats anywhere from 88-92 continue home inhalers Pulmonology consulted will follow recommendations (3) CHF (congestive heart failure) Current Visit: Yes Status: Chronic Assessment and Plan: continue with ASA, BB, lasix TTE 10/31: Impressions: LVEF 70%.Normal LV chamber size, wall thickness and function. Normal right ventricular structure and function. No significant valvular dysfunction. No evidence of pulmonary hypertension. (4) COPD (chronic obstructive pulmonary disease) Current Visit: Yes Status: Chronic Assessment and Plan: Hx of chronic COPD. Stable. Pt. wears 5L home O2 continuously. SOB on exam which he states is his baseline. Supplemental O2 with titration and SPO2 monitoring. Continue patient's Symbicort, scheduled DuoNeb's, inhaler, and supplemental O2 with titration and SPO2 monitoring. (5) Cirrhosis Current Visit: Yes Status: Chronic Assessment and Plan: Hx of chronic cirrhosis that pt. currently not decompensated ethanol level ordered which is <10. Ammonia 43 Continue pts. PO lactulose and rest of medications if not CI (6) Counseling regarding goals of care Current Visit: Yes Status: Acute Assessment and Plan: palliative consulted will follow recommendations (7) Anxiety and depression Current Visit: Yes Status: Chronic Assessment and Plan: Hx of chronic anxiety and depression. Continue pts. Zoloft and hydroxyzine. (8) DVT prophylaxis Current Visit: Yes Status: Acute Assessment and Plan: scds and heparin sc - Time Spent with Patient Total time spent is greater than 50% in coordination of care (as documented) at patient's floor/unit and/or counseling patient: Internal Medicine: Result - Labs CBC & Chem 7: 11/01/18 06:40 11/01/18 06:40 Labs: Short CBC 10/31/18 11/01/18 Range/Units 21:37 06:40 WBC 6.8 6.1 (4.3-11.1) K/mcL Hgb 9.3 L 8.9 L (12.9-16.9) g/dL Hct 29.9 L 28.9 L (37.5-50.1) % Plt Count 133 L 124 L (140-400) K/mcL Neutrophils # 5.0 4.3 (1.6-8.9) K/mcL BMP 10/31/18 11/01/18 21:37 06:40 Sodium 134 L 136 Potassium 4.6 4.0 Chloride 87 L 89 L Carbon Dioxide 44 H* 44 H* BUN 19 19 Creatinine 1.00 0.91 Glucose 217 H 130 H Calcium 8.7 8.7 Liver Function 10/31/18 11/01/18 Range/Units 21:37 06:40 Total Bilirubin 0.5 0.5 (0.3-1.0) mg/dL Direct Bilirubin 0.1 (0.0-0.2) mg/dL AST 18 17 (13-39) Units/L ALT 23 22 (7-52) Units/L Alkaline Phosphatase 67 63 (34-104) Units/L Albumin 3.2 L 3.1 L (3.5-5.7) g/dL - ABG Interpretation ABG results: ABG ABG pH 7.39 pH Units (7.32-7.45) 11/01/18 08:56 ABG pCO2 76 mmHg (35-45) H* 11/01/18 08:56 ABG pO2 67 mmHg (85-104) L 11/01/18 08:56 ABG O2 Saturation 91 % (95-98) L 11/01/18 08:56 - Impressions Impressions Echocardiogram 10/31/18 19:49 Impressions: LVEF 70%.Normal LV chamber size, wall thickness and function. Normal right ventricular structure and function. No significant valvular dysfunction. No evidence of pulmonary hypertension. Left Ventricular Wall Motion: Rest Echo Findings All wall segments showed normal motion. Findings: Study Quality * Technically adequate exam. ECG Findings * Normal sinus rhythm. Left Ventricle * LVEF 70%. * Normal LV chamber size, wall thickness and function. * Normal left ventricular diastolic function. Right Ventricle * Normal right ventricular structure and function. Left Atrium * Normal left atrial size. Right Atrium * Normal right atrial size. Interatrial Septum * Interatrial septum not well evaluated. * No evidence of PFO by color Doppler. Aortic Valve * Trileaflet aortic valve with normal function. * No aortic stenosis. * No aortic regurgitation. Mitral Valve * Normal mitral valve structure and function. * No mitral stenosis. * No mitral regurgitation. Tricuspid Valve * Normal tricuspid valve structure and function. * No tricuspid stenosis. * Trace tricuspid regurgitation. * Unable to estimate RVSP due to lack of TR jet. * No evidence of pulmonary hypertension. Pulmonic Valve * Pulmonic valve is not well visualized. * No pulmonic stenosis. * Trace pulmonic regurgitation. Aorta * Normally sized aortic root. Pericardium * The pericardium appears normal. IVC * The IVC is not dilated. * < 50% respiratory change. Head CT 10/31/18 20:05 IMPRESSION: No acute intracranial abnormality. Mild chronic encephalomalacia both inferior frontal lobes and right anterior temporal lobe. D/ / Abbe Fonseca / Abbe Fonseca Interpreting Provider: Abbe Fonseca Consult Discharge Plan - Plan [facility]errals: [facility] [Primary Care Provider] - (1) Fracture of hip Qualifiers: Encounter type: initial encounter Fracture type: closed Laterality: left Qualified Code(s): S72.002A - Fracture of unspecified part of neck of left femur, initial encounter for closed fracture (3) CHF (congestive heart failure) Qualifiers: Heart failure type: diastolic Heart failure chronicity: chronic Qualified Code(s): I50.32 - Chronic diastolic (congestive) heart failure (4) COPD (chronic obstructive pulmonary disease) Qualifiers: COPD type: COPD with acute exacerbation Qualified Code(s): J44.1 - Chronic obstructive pulmonary disease with (acute) exacerbation (5) Cirrhosis Qualifiers: Hepatic cirrhosis type: other cirrhosis Qualified Code(s): K74.69 - Other cirrhosis of liver
--- NOTE | 2018-11-01 14:42 | Pulmonology Consult Note ---
Date of Encounter: 11/01/18 Time of Encounter: 14:41 Assessment and Plan (1) Encounter for preoperative pulmonary examination Current Visit: Yes Status: Acute Preoperative Pulmonary Risk Assessment and Optimization Operation Directly Involves the Diaphgram: No Procedure Related Risk: Low Overall Risk of Patient:: High secondary to chronic hypoxic hypercapnic respiratory failure advanced COPD cirrhosis and partial functional status at home Post-operative complications including but not limited to pneumonia, respiratory failure requiring ventilation, and prolonged intubation requiring hospitali zation. Specific Perioperative Recommendations: Appears to be baseline respiratory st atus. Appears optimized from pulmonary standpoint but will be high risk for complications General Perioperative Pulmonary Recommendations: 1. Delay or cancel planned surgery for acute respiratory infection or exacerbation of pulmonary disease 2. Spinal or epidural anesthesia is favored over general anesthesia for patients who are at high risk for postoperative pulmonary complications 3. Optimize pain control while limiting use of sedatives and judicious use of narcotics. 4. Encourage early ambulation and use of incentive spirometry 5. Administration of bronchodilators 6. VTE prophylaxis including mechanical or chemical prophylaxis as dictated by post operative bleeding risk. 7. BiPAP in the perioperative period (2) Acute exacerbation of chronic obstructive airways disease Current Visit: No Status: Acute Unclear if patient had a COPD exacerbation on admission to the hospital or not at this point there is no wheezing on examination he appears to be at baseline status was weaned down to supplemental oxygen status off continuous noninvasive ventilation. Of plan at this point would be to the started if not already started Symbicort 160/4.52 puffs twice a day he should have scheduled duo nebs every 6 hours. (3) Acute and chronic respiratory failure Current Visit: No Status: Acute Patient presented with respiratory distress at least per record he is doing fine now has been weaned down to baseline oxygen status wean supplemental FiO2 to keep saturation around 89-92% and recommend continuation of BiPAP with naps and at night. In addition to encourage incentive spirometry early ambulation out of bed to chair after surgery to mitigate the effects of VQ mismatching from atelectasis. Thank you for the consultation pulmonary will continue to follow Qualifiers: Respiratory failure complication: hypoxia and hypercapnia Qualified Code(s): J96.21 - Acute and chronic respiratory failure with hypoxia; J96.22 - Acute and chronic respiratory failure with hypercapnia (4) Fracture of hip Current Visit: Yes Status: Acute Management poor orthopedics spinal anesthesia is recommended if possible Qualifiers: Encounter type: initial encounter Fracture type: closed Laterality: left Qualified Code(s): S72.002A - Fracture of unspecified part of neck of left femur, initial encounter for closed fracture History of Present Illness Consult date: 11/01/18 Requesting physician: Evi Tsai Reason for consult: COPD Chief complaint: Difficulty in Breathing History of present illness: 62yo M with past history of hepatitis C/EToH Cirrhosis, seizure disorder, obesity, tobacco abuse, type 2 diabetes, oxygen dependent COPD and diastolic congestive heart failure presentted [facility] ED w/CC of left hip pain r/t fall sustained when pt. fell getting out of the bathtub. Found to have left reverse obliquity intertrochanteric hip fracture. Apparently initially and admission to the hospital he was very short of breath and was placed on BiPAP for support ABG was consistent with chronic hypoxic hypercapnic respiratory failure. Pulmonary was consulted for preoperative evaluation for possible for reduction and medullary nailing of hip for stability/nursing care/convalescence. Today patient is awake and alert at bedside. States that breathing is at baseline. Denies any significant sputum production wheezing fevers or chills. His been weaned down to nasal cannula and is not in any respiratory distress. Former lifelong smoker now in remission of the last year. He follows with gas attendant Dr. Degroot at the [facility] here in [place] Past Med Surg Social Fam HX - Past Medical History Medical history: cirrhosis, CHF, COPD, coronary artery disease, diabetes, hepatitis, hyperlipidemia, hypertension, liver disease, myocardial infarction, other Additional medical history: chronic back pain, hepatitis C Psychiatric history: anxiety, depression - Past Surgical History Surgical History: cholecystectomy, orthopedic, other Additional surgical history: stent in gallbladder/liver stent, hemerrhoid surgery - Social History Smoking Status: Former smoker Packs per day: >2 PPD. Reports quitting >1 year ago Smokeless Tobacco Status: No Alcohol use: none Drug use: none - Family History Mother Race: Family Member Ethnicity: Non- Living Status: Still Living Hx Family Endocrine Disorder: Yes (DM) Father Race: Family Member Ethnicity: Non- Living Status: Still Living Hx Family Cardiac Disorders: Yes ([place], CABG) Hx Family Endocrine Disorder: Yes (DM) Medications and Allergies Cholecalciferol (Vitamin D3) [Vitamin D3] 2,000 unit PO BID 03/15/16 [History] Magnesium 400 mg PO BID 03/15/16 [History] Budesonide/Formoterol 80/4.5 [Symbicort 80/4.5] 2 puff IH BIDR #2 inhaler 03/17/16 [Rx] Cyanocobalamin (Vitamin B-12) [Vitamin B12] 1,000 mcg PO BID 04/03/17 [History] Loratadine [Allergy Relief] 10 mg PO DAILY 04/03/17 [History] Omeprazole 20 mg PO DAILY 04/03/17 [History] Aspirin 81 mg PO DAILY tab.chew 09/05/17 [Rx] Furosemide [Lasix] 20 mg PO DAILY PRN #30 tablet 12/19/17 [Rx] Oxycodone HCl [Oxaydo] 10 mg PO Q6H 02/24/18 [History] Insulin ASPART [Novolog Flexpen] 5 - 10 unit SQ TIDWM 08/09/18 [History] Insulin DETEMIR [Levemir] 30 unit SQ BID 08/09/18 [History] Ipratropium/Albuterol Sulfate [Combivent Respimat Inhal [place]] 1 puff IH Q6H PRN 08/09/18 [History] Lactulose 10 gm PO Q8HR 08/09/18 [History] Losartan [Cozaar] 25 mg PO DAILY 08/09/18 [History] Potassium Chloride [K-Tab ER] 20 meq PO DAILY 08/09/18 [History] Sertraline [Zoloft] 50 mg PO DAILY 08/09/18 [History] hydrOXYzine HCl [Hydroxyzine HCl] 25 mg PO HS PRN 08/09/18 [History] Sennosides/Docusate Sodium [Senna-Docusate Sodium Tablet] 1 tab PO HS 10/07/18 [History] Zinc [Zinc Chelated] 50 mg PO BID 10/07/18 [History] Carvedilol [Coreg] 6.25 mg PO BIDWM #60 tablet 10/12/18 [Rx] Ipratropium/Albuterol Neb [Duoneb] 3 ml IH Q6HR PRN #60 vial.neb 10/12/18 [Rx] Nebulizer Accessories [Sootheneb [id number] Adult Mask] 1 each MC Q6H PRN #1 each 10/12/18 [Rx] Sulfamethoxazole/Trimeth DS [Bactrim DS] 1 each PO BID 11/01/18 [History] Allergy/AdvReac Type Severity Reaction Status Date / Time No Known Allergies Allergy Verified 10/07/18 16:41 All Systems: The remainder of the systems were reviewed and are negative Physical Examination Vital Signs: Vital Signs, Last 4 Hours Temp Pulse Resp BP Pulse Ox 11/01/18 11:23 98.1 F 94 19 141/82 94 11/01/18 10:42 22 94 General appearance: no acute distress Eyes: nonicteric ENT: oropharynx moist Neck: supple, no lymphadenopathy Effort: normal Auscultation: bilateral: rales (faint inspiratory crackles b/l ) Cardiovascular: regular rate and rhythm Gastrointestinal: normoactive bowel sounds, soft, non-tender Integumentary: normal Extremities: no clubbing, pink and warm, pulses normal, edema (Trace b/l LE edema ) Musculoskeletal: no deformities normal mental status, non-focal exam mood appropriate Results - Laboratory Findings CBC and BMP: 11/01/18 06:40 11/01/18 06:40 ABG ABG pH 7.39 pH Units (7.32-7.45) 11/01/18 08:56 ABG pCO2 76 mmHg (35-45) H* 11/01/18 08:56 ABG pO2 67 mmHg (85-104) L 11/01/18 08:56 ABG O2 Saturation 91 % (95-98) L 11/01/18 08:56 Abnormal lab findings: Abnormal lab results RBC 3.30 M/mcL (4.19-5.50) L 11/01/18 06:40 Hgb 8.9 g/dL (12.9-16.9) L 11/01/18 06:40 Hct 28.9 % (37.5-50.1) L 11/01/18 06:40 MCH 27.0 pg (28.0-33.3) L 11/01/18 06:40 MCHC 30.8 g/dL (31.6-35.5) L 11/01/18 06:40 Plt Count 124 K/mcL (140-400) L 11/01/18 06:40 ABG pCO2 76 mmHg (35-45) H* 11/01/18 08:56 ABG pO2 67 mmHg (85-104) L 11/01/18 08:56 ABG HCO3 46 mEq/L (21-27) H 11/01/18 08:56 ABG Total CO2 48 mEq/L (20-26) H 11/01/18 08:56 ABG O2 Saturation 91 % (95-98) L 11/01/18 08:56 ABG Base Excess 18 mEq/L (-2 to 3) H 11/01/18 08:56 Chloride 89 mEq/L (98-107) L 11/01/18 06:40 Carbon Dioxide 44 mEq/L (23-29) H* 11/01/18 06:40 Glucose 130 mg/dL (70-105) H 11/01/18 06:40 POC Glucose 199 mg/dL (70-99) H 10/31/18 22:48 Hemoglobin A1c 8.2 % (-5.6) H 11/01/18 06:40 Serum Total Protein 5.6 g/dL (6.4-8.9) L 11/01/18 06:40 Albumin 3.1 g/dL (3.5-5.7) L 11/01/18 06:40 HDL Cholesterol 27 mg/dL (40-59) L 11/01/18 06:40 - Diagnostic Findings Chest x-ray: report reviewed, image reviewed - Clinical Findings Intake & Output: Intake & Output 10/31/18 11/01/18 11/01/18 23:59 07:59 15:59 Output Total 400 / 400 350 / 350 Balance -400 / -400 -350 / -350 Weight 106.3 kg Consult Discharge Plan - Plan [facility]errals: [facility] [Primary Care Provider] -
[2018-11-01] MEDS ORDERED: KETAMINE HCL 50 MG/ML SYRINGE IV ONE (16:43)
[2018-11-01] MEDS ORDERED: Dexamethasone 4 MG/ML VIAL ONE (16:45)
[2018-11-01] MEDS ORDERED: *HR* Midazolam HCl 2 MG/2 ML VIAL ONE (16:45)
[2018-11-01] MEDS ORDERED: *HR* FentaNYL (PF) 100 MCG/2 ML VIAL ONE (16:45)
[2018-11-01] MEDS ORDERED: *HR* Rocuronium Bromide 50 MG/5 ML VIAL ONE (16:45)
[2018-11-01] MEDS ORDERED: Lidocaine -MPF 2% 2 ML VIAL ONE (16:45)
[2018-11-01] MEDS ORDERED: *HR* Succinylcholine 200 MG/10 ML VIAL IVP ONE (16:45)
[2018-11-01] MEDS ORDERED: Lidocaine -MPF 4% 5 ML AMPUL ONE (16:45)
[2018-11-01] MEDS ORDERED: *HR* Propofol 200 MG/20 ML VIAL IVP ONE ×3 (16:45→18:35)
[2018-11-01] MEDS ORDERED: Ondansetron 4 MG/2 ML VIAL ONE (16:45)
--- NOTE | 2018-11-01 16:49 | Anesthesia Evaluation PreOp ---
Date of Encounter: 11/01/18 Time of Encounter: 16:50 - Past History Planned Operation: Left Hip IM Nailing Cardiac History: DE, HTN, Hyperlipidemia Pulmonary History: Smoker, COPD (Severe, History of Acute over Chronic Respiratory Failure) [employer] History: Denies Any Significant HX Other Medical History: Hepatic (Hepatitis), Diabetes Type II Alcohol Use: none Drug use: none Medications and Allergies Cholecalciferol (Vitamin D3) [Vitamin D3] 2,000 unit PO BID 03/15/16 [History] Magnesium 400 mg PO BID 03/15/16 [History] Budesonide/Formoterol 80/4.5 [Symbicort 80/4.5] 2 puff IH BIDR #2 inhaler 03/17/16 [Rx] Cyanocobalamin (Vitamin B-12) [Vitamin B12] 1,000 mcg PO BID 04/03/17 [History] Loratadine [Allergy Relief] 10 mg PO DAILY 04/03/17 [History] Omeprazole 20 mg PO DAILY 04/03/17 [History] Aspirin 81 mg PO DAILY tab.chew 09/05/17 [Rx] Furosemide [Lasix] 20 mg PO DAILY PRN #30 tablet 12/19/17 [Rx] Oxycodone HCl [Oxaydo] 10 mg PO Q6H 02/24/18 [History] Insulin ASPART [Novolog Flexpen] 5 - 10 unit SQ TIDWM 08/09/18 [History] Insulin DETEMIR [Levemir] 30 unit SQ BID 08/09/18 [History] Ipratropium/Albuterol Sulfate [Combivent Respimat Inhal [place]] 1 puff IH Q6H PRN 08/09/18 [History] Lactulose 10 gm PO Q8HR 08/09/18 [History] Losartan [Cozaar] 25 mg PO DAILY 08/09/18 [History] Potassium Chloride [K-Tab ER] 20 meq PO DAILY 08/09/18 [History] Sertraline [Zoloft] 50 mg PO DAILY 08/09/18 [History] hydrOXYzine HCl [Hydroxyzine HCl] 25 mg PO HS PRN 08/09/18 [History] Sennosides/Docusate Sodium [Senna-Docusate Sodium Tablet] 1 tab PO HS 10/07/18 [History] Zinc [Zinc Chelated] 50 mg PO BID 10/07/18 [History] Carvedilol [Coreg] 6.25 mg PO BIDWM #60 tablet 10/12/18 [Rx] Ipratropium/Albuterol Neb [Duoneb] 3 ml IH Q6HR PRN #60 vial.neb 10/12/18 [Rx] Nebulizer Accessories [Sootheneb [id number] Adult Mask] 1 each MC Q6H PRN #1 each 10/12/18 [Rx] Sulfamethoxazole/Trimeth DS [Bactrim DS] 1 each PO BID 11/01/18 [History] Allergy/AdvReac Type Severity Reaction Status Date / Time No Known Allergies Allergy Verified 10/07/18 16:41 - Meds/Allergy Pre-op Review Medications Reviewed: Yes Allergies Reviewed: Yes Beta Blockers on Current Med List: No Anesthesia Results - Labs 11/01/18 06:40 11/01/18 06:40 Laboratory Tests 10/06/18 11/01/18 11/01/18 19:10 06:40 06:40 Hgb 8.9 L Hct 28.9 L Plt Count 124 L PT 12.7 H INR 1.1 APTT 29.6 Sodium 136 Potassium 4.0 BUN 19 Creatinine 0.91 - Imaging EKG: report reviewed (SR) Additional studies: ECHO EF 70%, no pulm htn Anesthesia Exam Vital Signs/O2 Sat/Glucose, Most Current Temp Pulse Resp BP Pulse Ox 11/01/18 16:27 98.5 F 94 19 143/81 95 11/01/18 15:53 94 Height: 5'11 Weight: 234 lbs NPO (# of Hours): MN Pain Scale: 0 - HEENT Pupil (Motor): Pupils equal, EOMI Mallampati: III Teeth: Edentulous Oral Opening: Less than or equal to 3 - [employer] LOC: Oriented [employer] Motor: Normal RUE, Normal LUE, Normal RLE, Normal LLE, Normal Face [employer] Sensory: Normal: RUE, LUE, RLE, LLE, Face - Cardiac Rhythm: Regular Murmur: None JVD: No Carotid Bruit: No - Pulmonary Breath Sounds: bilateral Clear Respiratory Effort: Symmetrical Anesthesia Assess/Plan ASA Score: 4 (Severe COPD, CAD HTN DM) Level of consciousness: Cooperative, Oriented Anesthetic Plan: Spinal Autologous Blood: No Monitoring Plan: Standard Monitors Recovery Plan: PACU (Discussed SAB, possible GA, agrees to proceed)
[2018-11-01] MEDS ORDERED: *HR* Morphine Sulfate/PF 10 MG/10 ML AMPUL ONE (16:56)
[2018-11-01] MEDS ORDERED: Lidocaine -MPF 1% 5 ML AMPUL ONE (16:59)
--- NOTE | 2018-11-01 17:32 | Anesthesia Procedures ---
Date of Encounter: 11/01/18 Time of Encounter: 16:45 Procedures: Anesthesia - Epidural/Spinal Patient ID/Chart reviewed: Yes Patient examined: Yes Supplemental Oxygen: Mask Supplemental Oxygen Rate (L/min): 6 Sedation: Versed (mg): 1 (Ketamine 50 mg) Site Prep: Aseptic Technique, Sterile prep and drape, Povidone-Iodine 1% Patient position: right lateral decubitus Local Anesthetic: Lidocaine 1% Amount of Local Anesthetic used: 5 Interspace Used: L3-L4 Loss of Resistance (ABBEY): No Blood: No CSF: Yes Spinal Needle Gauge: 24 Spinal Dose: 12 mg isobaric marcaine/duramorph 300micrograms Procedure: Pt Rt Lateral, monitors placed, midline L3-4 plus CSF, isobaric marcaine with duramorph, patient tolerated procedure well
--- NOTE | 2018-11-01 19:37 | Anesthesia Evaluation Post Op ---
Date of Encounter: 11/01/18 Time of Encounter: 19:36 - Vital Signs Vital Signs: Vital Signs/O2 Sat, Most Current Temp Pulse Resp BP Pulse Ox 97.4 F L 84 12 135/53 96 11/01/18 19:27 11/01/18 19:27 11/01/18 19:27 11/01/18 19:27 11/01/18 19:27 - Lungs Lungs: Clear Ascult./Percussion - Airway Airway: Non-obstructed - Cardiovascular Regular Rate - Mental Status Mental Status: Alert & Oriented, Answers Appropriately - Pain Pain Scale: 0 Pain Scale used: Numeric (1 - 10) - Nausea Vomiting Nausea Vomiting: Not Present - Hydration Hydration: NPO, Queen catheter - Discharge PostOp Status: Transfer Patient to floor
[2018-11-01] MEDS: *HR* OxyCODONE Immed Rel 5 MG TABLET PO PRN (20:30)
[2018-11-01] MEDS: Sennosides/Docusate Sodium TABLET PO SCH (20:31)
--- NOTE | 2018-11-01 20:59 | Orthopedic Operative Note ---
Date of procedure: 11/01/18 Procedure: OPERATIVE REPORT SURGEON: Ventura Newell MD PREOPERATIVE DIAGNOSIS: Reverse obliquity intertrochanteric hip fracture POSTOPERATIVE DIAGNOSIS: Same PROCEDURE: With left hip nailing ANESTHESIA: MAC/spinal block SPECIMENS: No specimens IMPLANTS: Synthes TFN-A measuring 10 mm x 400 mm with a 100 mm lag screw LOCAL INJECTION: None PREOPERATIVE NOTE The surgical plan was reviewed with the patient. The risks, benefits, alternatives, and potential complications of this procedure were discussed with the patient including injury to veins, arteries, nerves, tendons, ligaments, and bone. Also discussed were the risks of infection, bleeding, pain, blood clots, the possible need for a blood transfusion, the possible need for further procedures, heart attack, stroke, and . Additional risks include malunion, nonunion, hardware failure, and hardware collapse. All of this was explained in simple terms, and the patient verbalized understanding and wished to proceed. Consent was given to proceed with surgery. PROCEDURE: The patient was seen in the preoperative holding area where the identify and the consent were confirmed. The left hip was marked. Final questions were answered. The patient was brought back to the operating room. A huddle was performed with the patient and all vital surgical team members confirming patient identity, the correct procedure, and the correct operative site. Spinal anesthesia was administered. The patient was placed on the traction table and the left lower extremity placed in traction and internal rotation and the right lower extremity lowered out of the way. X-rays confirmed good reduction. The operative extremity was prepped and draped in the usual sterile fashion. A surgical time out was performed immediately preceding the incision with all personnel in the operating room to confirm patient identity, the correct oper ative site and extremity, correct radiographic studies, availability of appropriate surgical equipment, and agreement on the planned procedure. A small incision was made proximal to the greater trochanter and dissection proceeded through the subcutaneous tissue and fascia. The guidewire was placed in the proximal femur. The proximal femur was opened and the ball-tipped guidewire was placed. Reaming took place up to 11.5 mm with good chatter. A 10 mm short nail was placed but when in good position it was felt to be too short to adequately stabilize the fracture. It was withdrawn and the decision was made to place a long nail. Reaming went up to 12 mm and the definitive long nail was placed. A second incision was made using the triple sleeve as a marker and dissection proceeded carefully through the subcutaneous tissue and the fascia was opened. The guidewire was drilled into the femoral head and this was overreamed and the definitive 100 mm lag screw was placed and locked statically. Instrumentation was removed. Using perfect st. croix technique and 2 small stab incisions to interlocking screws were placed distally. The wounds were copiously irrigated and the fascia was closed with 0 Vicryl stitches and the skin was closed with 3-0 Vicryl stitches and mel. Final x-rays confirmed good reduction and placement of the hardware. Sterile dressings were placed over the wounds. The patient was taken off the traction table and placed on a hospital bed in good condition. The instrument, sponge, and needle counts were correct after wound closure. POST OPERATIVE PLAN: Weight bearing as tolerated, physical therapy, heparin for DVT prophylaxis in- house. Was there an automobile mechanic assistant present: No Estimated blood loss (cc): 100
[2018-11-01] MEDS: Ipratropium/Albuterol Neb 3 ML IH SCH (22:34)
[2018-11-02] MEDS: ceFAZolin 3,000 MG in 0.9 % Sodium Chloride 100 ML IVPB SCH ×2 (01:04→08:29)
[2018-11-02] MEDS: Lactulose Oral Soln 20 GM/30 ML UDC PO SCH ×3 (01:04→16:08)
[2018-11-02] MEDS: traMADol 50 MG TABLET PO PRN ×3 (01:20→16:08)
[2018-11-02] MEDS: *HR* Heparin 5,000 UNIT/ML VIAL SQ SCH ×3 (05:40→20:52)
[2018-11-02] MEDS: *HR* OxyCODONE Immed Rel 5 MG TABLET PO PRN ×3 (05:40→19:56)
[2018-11-02 06:15] LABS: Basophils % 0.3 %; Eosinophils # 0.2 K/mcL (0.0-0.6); Hematocrit 27.5 % (37.5-50.1); Hemoglobin 8.3 g/dL (12.9-16.9); Immature Granulocytes % 0.4 % (0-4); Lymphocytes # 0.8 K/mcL (0.6-4.6); Lymphocytes % 11.6 %; Mean Corpuscular HGB Conc 30.2 g/dL (31.6-35.5); Mean Corpuscular Volume 89.6 fL (83.0-100.0); Mean Platelet Volume 9.8 fL (9.4-12.4); Monocytes # 0.4 K/mcL (0.0-1.3); Monocytes % 5.9 %; Neutrophils # 5.3 K/mcL (1.6-8.9); Platelet Count 129 K/mcL (140-400); Red Blood Count 3.07 M/mcL (4.19-5.50); Red Cell Distribution Width 13.6 % (11.5-14.5); Segmented Neutrophils % 78.8 %
[2018-11-02 06:26] LABS: VBG Ionized Calcium 1.09 mmol/L (1.15-1.35)
[2018-11-02 07:00] LABS: Alanine Aminotransferase 16 Units/L (7-52); Albumin/Globulin Ratio 1.1 (1.1-2.2); Alkaline Phosphatase 59 Units/L (34-104); Aspartate Amino Transferase 17 Units/L (13-39); BUN/Creatinine Ratio 25 (6-26); Bilirubin,Total 0.5 mg/dL (0.3-1.0); Blood Urea Nitrogen 21 mg/dL (8-23); Calcium 8.6 mg/dL (8.6-10.3); Carbon Dioxide 41 mEq/L (23-29); Chloride 92 mEq/L (98-107); Globulin 2.7 g/dL (2.4-3.5); Glucose 172 mg/dL (70-105); Osmolality,Calculated 291 (280-300); Potassium 4.5 mEq/L (3.5-5.1); Sodium 137 mEq/L (136-145); Total Protein 5.7 g/dL (6.4-8.9); eGFR For Non-African Americans > 60 (> 60)
[2018-11-02] MEDS: Ipratropium/Albuterol Neb 3 ML IH SCH ×4 (07:38→21:53)
--- NOTE | 2018-11-02 07:45 | Orthopedics Progress Note ---
Date of Encounter: 11/02/18 Time of Encounter: 07:43 Subjective Interval history: S: Minimal pain to the left hip No new complaints O: Afebrile on the vital signs are stable Hip dressings are clean, dry, and intact Minimal pain with passive motion of the left hip A: Post left hip nailing P: Queen out today Therapy for weightbearing as tolerated and mobilization Receiving heparin for DVT prophylaxis; anticipate switch to aspirin upon discharge if no contraindications I will change the dressing tomorrow Objective Vital signs: Vital Signs Temp Pulse Resp BP Pulse Ox 11/02/18 07:26 99.1 F 106 18 134/78 97 11/02/18 03:36 98.8 F 104 18 113/71 91 11/01/18 22:58 97.7 F 94 16 117/65 93 11/01/18 22:41 13 98 11/01/18 22:07 97.8 F 98 16 140/67 99 11/01/18 21:10 97.5 F L 82 16 124/74 94 11/01/18 20:37 94 11/01/18 20:35 97.6 F 82 16 125/72 95 11/01/18 19:57 97.6 F 83 16 123/71 95 11/01/18 19:37 97.6 F 79 14 133/69 95 11/01/18 19:27 97.4 F L 84 12 135/53 96 11/01/18 19:17 86 12 136/53 96 11/01/18 19:07 86 12 139/67 99 11/01/18 18:57 98 F 90 14 128/59 98 11/01/18 16:27 98.5 F 94 19 143/81 95 11/01/18 15:53 94 11/01/18 11:23 98.1 F 94 19 141/82 94 11/01/18 10:42 22 94 11/01/18 10:24 98.6 F 106 16 163/86 93 Intake and Output 11/01/18 11/01/18 11/02/18 15:59 23:59 07:59 Intake Total 340 / 340 100 / 100 Output Total 350 / 350 225 / 225 400 / 400 Balance -350 / -350 115 / 115 -300 / -300 Intake: IV Fluids 100 / 100 Ancef 3,000 MG In 0.9 % Sodium 100 / 100 Chloride 100 ML @ 200 mls/hr IVPB Q8HR [facility] Rx#:[id number] Oral 340 / 340 Output: Estimated Blood Loss 100 / 100 Catheter 350 / 350 125 / 125 400 / 400 Other: Weight 106.4 kg Blood Glucose* 146 134 157 Patient Weight 11/02/18 23:59 Weight 106.4 kg - Labs CBC & BMP: 11/02/18 05:41 11/02/18 05:41 Labs: Abnormal lab results RBC 3.07 M/mcL (4.19-5.50) L 11/02/18 05:41 Hgb 8.3 g/dL (12.9-16.9) L 11/02/18 05:41 Hct 27.5 % (37.5-50.1) L 11/02/18 05:41 MCH 27.0 pg (28.0-33.3) L 11/02/18 05:41 MCHC 30.2 g/dL (31.6-35.5) L 11/02/18 05:41 Plt Count 129 K/mcL (140-400) L 11/02/18 05:41 ABG pCO2 76 mmHg (35-45) H* 11/01/18 08:56 ABG pO2 67 mmHg (85-104) L 11/01/18 08:56 ABG HCO3 46 mEq/L (21-27) H 11/01/18 08:56 ABG Total CO2 48 mEq/L (20-26) H 11/01/18 08:56 ABG O2 Saturation 91 % (95-98) L 11/01/18 08:56 ABG Base Excess 18 mEq/L (-2 to 3) H 11/01/18 08:56 Chloride 92 mEq/L (98-107) L 11/02/18 05:41 Carbon Dioxide 41 mEq/L (23-29) H* 11/02/18 05:41 Glucose 172 mg/dL (70-105) H 11/02/18 05:41 POC Glucose 134 mg/dL (70-99) H 11/01/18 20:01 Hemoglobin A1c 8.2 % (-5.6) H 11/01/18 06:40 Venous Ioniz Calcium 1.09 mmol/L (1.15-1.35) L 11/02/18 06:21 Serum Total Protein 5.7 g/dL (6.4-8.9) L 11/02/18 05:41 Albumin 3.0 g/dL (3.5-5.7) L 11/02/18 05:41 HDL Cholesterol 27 mg/dL (40-59) L 11/01/18 06:40 Consult Discharge Plan - Plan [facility]errals: [facility] [Primary Care Provider] -
--- NOTE | 2018-11-02 08:21 | Pulmonology Progress Note ---
Date of Encounter: 11/02/18 Time of Encounter: 08:21 Assessment and Plan (1) Encounter for preoperative pulmonary examination Current Visit: Yes Status: Acute He has done fine now postoperatively recommended PTOT consultation out of bed to chair incentive spirometry and early ambulation as tolerated and if advised by orthopedics. He will need postoperative DVT prophylaxis (2) Acute exacerbation of chronic obstructive airways disease Current Visit: No Status: Acute This has resolved. Patient could return to his home bronchodilator regimen at the time of discharge. While inpatient continue 2 puffs of Symbicort twice daily and schedule bronchodilators (3) Acute and chronic respiratory failure Current Visit: No Status: Acute He has been weaned back to home FiO2 support continue BiPAP at night for sleep d isordered breathing Qualifiers: Respiratory failure complication: hypoxia and hypercapnia Qualified Code(s): J96.21 - Acute and chronic respiratory failure with hypoxia; J96.22 - Acute and chronic respiratory failure with hypercapnia (4) Fracture of hip Current Visit: Yes Status: Inactive per orthopedics. Pulmonary will sign off thank you for this consultation please call with any questions Qualifiers: Encounter type: initial encounter Fracture type: closed Laterality: left Qualified Code(s): S72.002A - Fracture of unspecified part of neck of left femur, initial encounter for closed fracture Subjective Principal diagnosis: Hip Fracture Interval history: Mr Thompson states that he woke up this morning had a low but difficulty breathing but the longer he is been up these years breathing spend his sitting up eating breakfast without any complaints except for leg pain (post op) when I spoke with him. He went through with surgical repair without untoward effect Objective PUL Vital signs: Last Vital Signs Temp 99.1 F 11/02/18 07:26 Pulse 106 11/02/18 07:26 Resp 18 11/02/18 07:26 BP 134/78 11/02/18 07:26 Pulse Ox 97 11/02/18 07:26 General appearance: no acute distress Eyes: nonicteric Effort: normal Auscultation: right: wheezes (Faint expiratory wheeze in the right lower lobe), bilateral: diminished breath sounds Cardiovascular: regular rate and rhythm Gastrointestinal: normoactive bowel sounds, soft, non-tender Integumentary: normal Extremities: no cyanosis, no edema, no clubbing Musculoskeletal: no deformities normal mental status, non-focal exam mood appropriate Results - Laboratory Findings CBC and BMP: 12/20/18 05:41 11/02/18 05:41 ABG ABG pH 7.39 pH Units (7.32-7.45) 11/01/18 08:56 ABG pCO2 76 mmHg (35-45) H* 11/01/18 08:56 ABG pO2 67 mmHg (85-104) L 11/01/18 08:56 ABG O2 Saturation 91 % (95-98) L 11/01/18 08:56 Abnormal lab findings: Abnormal lab results RBC 3.07 M/mcL (4.19-5.50) L 11/02/18 05:41 Hgb 8.3 g/dL (12.9-16.9) L 11/02/18 05:41 Hct 27.5 % (37.5-50.1) L 11/02/18 05:41 MCH 27.0 pg (28.0-33.3) L 11/02/18 05:41 MCHC 30.2 g/dL (31.6-35.5) L 11/02/18 05:41 Plt Count 129 K/mcL (140-400) L 11/02/18 05:41 ABG pCO2 76 mmHg (35-45) H* 11/01/18 08:56 ABG pO2 67 mmHg (85-104) L 11/01/18 08:56 ABG HCO3 46 mEq/L (21-27) H 11/01/18 08:56 ABG Total CO2 48 mEq/L (20-26) H 11/01/18 08:56 ABG O2 Saturation 91 % (95-98) L 11/01/18 08:56 ABG Base Excess 18 mEq/L (-2 to 3) H 11/01/18 08:56 Chloride 92 mEq/L (98-107) L 11/02/18 05:41 Carbon Dioxide 41 mEq/L (23-29) H* 11/02/18 05:41 Glucose 172 mg/dL (70-105) H 11/02/18 05:41 POC Glucose 134 mg/dL (70-99) H 11/01/18 20:01 Hemoglobin A1c 8.2 % (-5.6) H 11/01/18 06:40 Venous Ioniz Calcium 1.09 mmol/L (1.15-1.35) L 11/02/18 06:21 Serum Total Protein 5.7 g/dL (6.4-8.9) L 11/02/18 05:41 Albumin 3.0 g/dL (3.5-5.7) L 11/02/18 05:41 HDL Cholesterol 27 mg/dL (40-59) L 11/01/18 06:40 - Clinical Findings Intake & Output: Intake & Output 11/01/18 11/02/18 11/02/18 23:59 07:59 15:59 Intake Total 340 / 340 100 / 100 Output Total 225 / 225 400 / 400 Balance 115 / 115 -300 / -300 Weight 106.4 kg Consult Discharge Plan - Plan [facility]errals: [facility] [Primary Care Provider] -
[2018-11-02] MEDS: Aspirin 81 MG TAB.CHEW PO SCH (08:39)
[2018-11-02] MEDS: Loratadine 10 MG TABLET PO SCH (08:39)
[2018-11-02] MEDS: Cholecalciferol (D-3) 1,000 UNIT TABLET PO SCH (08:39)
[2018-11-02] MEDS: Magnesium Oxide 400 MG TABLET PO SCH ×2 (08:39→19:56)
[2018-11-02] MEDS: Insulin LISPRO 300 UNITS/3 ML VIAL SQ SCH ×4 (08:40→20:51)
[2018-11-02] MEDS: Cyanocobalamin (B-12) 1,000 MCG TABLET PO SCH ×2 (08:45→19:56)
[2018-11-02] MEDS: Insulin DETEMIR 100 UNIT/ML X5UNITS SQ SCH ×2 (08:45→20:52)
[2018-11-02] MEDS: Budesonide/Formoterol 80/4.5 MDI IH SCH ×2 (11:01→21:53)
--- NOTE | 2018-11-02 11:10 | Internal Med Progress Note ---
Hospitalist Progress Note - Encounter Date of Encounter: 11/02/18 Time of Encounter: 08:00 - Subjective Interval History: patient was seen and examined at bedside. He is status post surgery on 11/01. Reports that he has had no difficulty respiratory campbell post surgery. Pain is controlled, denies N/V/D, SOB, Chest pain, n/v/D. - Exam Vitals: Temp Pulse Resp BP Pulse Ox 99.1 F 106 18 134/78 97 11/02/18 07:26 11/02/18 07:26 11/02/18 07:26 11/02/18 07:26 11/02/18 07:26 Exam: General: Patient is alert, oriented, no acute distress, obese, speaks in full sentences Head: atraumatic, normocephalic, Eye: normal appearance, PERRL, no scleral icterus, no conjunctival injection ENT: mucous membranes moist, normal external ear exam Neck: normal inspection, trachea midline, full ROM, Chest: normal inspection, symmetric chest rise Respiratory: Decreased breath sounds secondary to body habitus, no crackles, no wheezing in the anterior chest. Cardiovascular: Regular rate and rhythm. s1 and s2 No clicks, rubs, gallops, or murmors. Abdomen: Bowel sounds present normoactive x-4 quadrants. Abdomen is soft, nondistended. no Epigastric tenderness. No guarding or rebound. No organomegaly noted, obese, no ascites appreciated musculoskeletal: Spontaneously moving all extremities. ROM reduced and the left hip secondary to fracture, able to move toes. Pulses intact Skin: warm, dry, intact. Neuro: Alert and oriented x3 (place, time, person). Has bilateral intention tremors, no focal deficit Psych: Patient's affect is normal - Assessment and Plan (1) Fracture of hip Current Visit: Yes Status: Inactive Assessment and Plan: Acute fx of neck of left femur S/P left hip nailing in OR 11/01/18 s/p mechanical fall pain control heparin sc for DVT prophylaxis - watch platelets Pt/OT CM / SW Vitamin D incentive spirometry XR of the left hip shows acute, comminuted, and displaced left proximal femur fracture. No evidence of dislocation. Severe osteopenia with degenerative changes of the lower lumbar spine and bilateral hips. was found High risk for surgery due to multiple comorbidities mentioned below (2) Chronic respiratory failure with hypercapnia Current Visit: Yes Status: Acute Assessment and Plan: PCO2 ranges in the 70s to 80s avoid excessive O2 as he is a chronic retainer continue bipap home settings continue with O2 as per home settings - keep sats anywhere from 88-92 continue home inhalers and Duo-nebs Q6H Pulmonology on board incentive spirometry (3) CHF (congestive heart failure) Current Visit: Yes Status: Chronic Assessment and Plan: continue with ASA, BB, lasix TTE 10/31: Impressions: LVEF 70%.Normal LV chamber size, wall thickness and function. Normal right ventricular structure and function. No significant valvular dysfunction. No evidence of pulmonary hypertension. (4) COPD (chronic obstructive pulmonary disease) Current Visit: Yes Status: Chronic Assessment and Plan: Hx of chronic COPD. Stable. Pt. wears 5L home O2 continuously. SOB on exam which he states is his baseline. Supplemental O2 with titration and SPO2 monitoring. Continue patient's Symbicort, scheduled DuoNeb's, inhaler, and supplemental O2 with titration and SPO2 monitoring. (5) Cirrhosis Current Visit: Yes Status: Chronic Assessment and Plan: Hx of chronic cirrhosis that pt. currently not decompensated ethanol level ordered which is <10. Ammonia 43 Continue pts. PO lactulose and rest of medications if not CI (6) Counseling regarding goals of care Current Visit: Yes Status: Acute Assessment and Plan: palliative recs appreciated (7) Anxiety and depression Current Visit: Yes Status: Chronic Assessment and Plan: Hx of chronic anxiety and depression. Continue pts. Zoloft and hydroxyzine. (8) DVT prophylaxis Current Visit: Yes Status: Acute Assessment and Plan: scds and heparin sc DVT prophylaxis on dischareg as per orthopedics - Time Spent with Patient Total time spent is greater than 50% in coordination of care (as documented) at patient's floor/unit and/or counseling patient: Internal Medicine: Result - Labs CBC & Chem 7: 11/02/18 05:41 11/02/18 05:41 Labs: Short CBC 11/02/18 Range/Units 05:41 WBC 6.7 (4.3-11.1) K/mcL Hgb 8.3 L (12.9-16.9) g/dL Hct 27.5 L (37.5-50.1) % Plt Count 129 L (140-400) K/mcL Neutrophils # 5.3 (1.6-8.9) K/mcL BMP 11/02/18 05:41 Sodium 137 Potassium 4.5 Chloride 92 L Carbon Dioxide 41 H* BUN 21 Creatinine 0.84 Glucose 172 H Calcium 8.6 Liver Function 11/02/18 Range/Units 05:41 Total Bilirubin 0.5 (0.3-1.0) mg/dL AST 17 (13-39) Units/L ALT 16 (7-52) Units/L Alkaline Phosphatase 59 (34-104) Units/L Albumin 3.0 L (3.5-5.7) g/dL - ABG Interpretation ABG results: ABG ABG pH 7.39 pH Units (7.32-7.45) 11/01/18 08:56 ABG pCO2 76 mmHg (35-45) H* 11/01/18 08:56 ABG pO2 67 mmHg (85-104) L 11/01/18 08:56 ABG O2 Saturation 91 % (95-98) L 11/01/18 08:56 - Impressions Impressions Fluoroscopy 11/01/18 00:00 IMPRESSION: Intraprocedural fluoroscopic spot images as above. See separate procedure report for more information. D/ / Edilberto Garcia MD / Edilberto Garcia MD Interpreting Provider: Edilberto Garcia MD Hip X-Ray 11/01/18 00:00 IMPRESSION: Intraprocedural fluoroscopic spot images as above. See separate procedure report for more information. D/ / Edilberto Garcia MD / Edilberto Garcia MD Interpreting Provider: Edilberto Garcia MD Consult Discharge Plan - Plan [facility]errals: [facility] [Primary Care Provider] - (1) Fracture of hip Qualifiers: Encounter type: initial encounter Fracture type: closed Laterality: left Qualified Code(s): S72.002A - Fracture of unspecified part of neck of left femur, initial encounter for closed fracture (3) CHF (congestive heart failure) Qualifiers: Heart failure type: diastolic Heart failure chronicity: chronic Qualified Code(s): I50.32 - Chronic diastolic (congestive) heart failure (4) COPD (chronic obstructive pulmonary disease) Qualifiers: COPD type: COPD with acute exacerbation Qualified Code(s): J44.1 - Chronic obstructive pulmonary disease with (acute) exacerbation (5) Cirrhosis Qualifiers: Hepatic cirrhosis type: other cirrhosis Qualified Code(s): K74.69 - Other ci rrhosis of liver
--- NOTE | 2018-11-02 15:24 | Palliative Progress Note ---
<Hali Sandoval - Last Filed: 11/02/18 15:18> Date of Encounter: 11/02/18 Time of Encounter: 15:18 - Assessment and plan (1) Acute exacerbation of chronic obstructive airways disease Current Visit: No Status: Acute Assessment and plan: Home oxygen requirement NC 4-5L. Currently on 5L NC and breathing comfortably. The fan has helped his breathing. Continue current management. (2) Fracture of hip Current Visit: Yes Status: Inactive Assessment and plan: POD #1, pain well controlled. Home pain control Oxycodone 10mg Q6H prn. Plan: - Tramadol 50mg Q6H prn - Oxycodone 10mg Q6H prn Qualifiers: Encounter type: initial encounter Fracture type: closed Laterality: left Qualified Code(s): S72.002A - Fracture of unspecified part of neck of left femur, initial encounter for closed fracture (3) Counseling regarding goals of care Current Visit: Yes Status: Acute Assessment and plan: brought in living will which states that he wants to be full code. Patient is doing better today with breathing and pain. was present at bedside and stated that he is short of breath at home just walking to the bathroom and becomes hypoxic down to the 80s despite wearing his oxygen while walking. He mostly sedentary due to this. Will begin to initiate hospice conversation tomorrow as patient is end stage COPD. - Time Spent With Patient Total time spent is greater than 50% in coordination of care (as documented) at patient's floor/unit and/or counseling patient: - Subjective Interval history: Mr. Thompson is a 62 year old male PMH of alcohol-related cirrhosis, CHF, COPD, CAD, diabetes, hepatitis C, HLD, HTN, liver disease, [place] with stents, anxiety, and depression who desires to be full code who presented from [facility] ED w/CC of left hip pain after fall who was found to have a L hip fracture and is POD#1. Today, patient is doing well. He state that the pain is much improved and his breathing is much better. He feels like he is back to baseline concerning his SOB and is currently on his home oxygen requirement of 5L NC. His was present and also felt like he was doing much better today. She has brought in his living will papers and he still desires to be full code. - Constitutional Vitals: Abnormal lab results RBC 3.07 M/mcL (4.19-5.50) L 11/02/18 05:41 Hgb 8.3 g/dL (12.9-16.9) L 11/02/18 05:41 Hct 27.5 % (37.5-50.1) L 11/02/18 05:41 MCH 27.0 pg (28.0-33.3) L 11/02/18 05:41 MCHC 30.2 g/dL (31.6-35.5) L 11/02/18 05:41 Plt Count 129 K/mcL (140-400) L 11/02/18 05:41 ABG pCO2 76 mmHg (35-45) H* 11/01/18 08:56 ABG pO2 67 mmHg (85-104) L 11/01/18 08:56 ABG HCO3 46 mEq/L (21-27) H 11/01/18 08:56 ABG Total CO2 48 mEq/L (20-26) H 11/01/18 08:56 ABG O2 Saturation 91 % (95-98) L 11/01/18 08:56 ABG Base Excess 18 mEq/L (-2 to 3) H 11/01/18 08:56 Chloride 92 mEq/L (98-107) L 11/02/18 05:41 Carbon Dioxide 41 mEq/L (23-29) H* 11/02/18 05:41 Glucose 172 mg/dL (70-105) H 11/02/18 05:41 POC Glucose 168 mg/dL (70-99) H 11/02/18 11:17 Hemoglobin A1c 8.2 % (-5.6) H 11/01/18 06:40 Venous Ioniz Calcium 1.09 mmol/L (1.15-1.35) L 11/02/18 06:21 Serum Total Protein 5.7 g/dL (6.4-8.9) L 11/02/18 05:41 Albumin 3.0 g/dL (3.5-5.7) L 11/02/18 05:41 HDL Cholesterol 27 mg/dL (40-59) L 11/01/18 06:40 - Additional findings Additional findings: Constitutional: Alert,laying comfortably in bed Head: Normocephalic, atraumatic, normal contour and symmetric, no masses, Heart: Normal, regular rate and rhythm, systolic murmurs Lungs: lungs with decrease air movement bilaterally, use of supraclavicular retractions, no intercostal retractions, no wheezes, rales, or rhonchi Abdomen: Soft, nondistended, nontender, and no masses palpable, no guarding or rigidity. Extremities: bilateral +1 LE edema, able to wiggle toes bilaterally, No clubbing, cyanosis, , radial pulse +2/4, capillary refill <2sec. Skin: Skin warm and dry, pale, bruising on arm, no rashes, no jaundice Neurologic: alert, speech clear, thought process logical Psych: Cooperative with exam, good eye contact, cognitive function intact, Palliative Quality Palliative Quality: Screen for Code Status: Yes, Screen for Goals of Care: Yes, Screen for Pain: Yes, If Pain Regimen Started, Initiate Bowel Regimen: Yes, Screen for Nausea/Vomitting: NA Code Status: 10/31/18 21:46 CODE [Resuscitation Status: Active] [RES] Routine Comment: Nurse discussed w/pts. d/t pts. AMS Resuscitation Status: Full Code - Labs CBC & Chem 7: 11/02/18 05:41 11/02/18 05:41 Labs: Laboratory Results - last 24 hr 11/01/18 11/01/18 11/01/18 07:01 11:22 16:23 WBC RBC Hgb Hct MCV MCH MCHC RDW Plt Count MPV Immature Gran % Seg Neutrophils % Lymphocytes % Monocytes % Eosinophils % Basophils % Neutrophils # Lymphocytes # Monocytes # Eosinophils # Basophils # Sodium Potassium Chloride Carbon Dioxide BUN Creatinine Est GFR ( Amer) Est GFR (Non-Af Amer) BUN/Creatinine Ratio Glucose POC Glucose 127 H 146 H 155 H Calculated Osmolality Calcium Venous Ioniz Calcium Total Bilirubin AST ALT Alkaline Phosphatase Serum Total Protein Albumin Globulin Albumin/Globulin Ratio 25-OH Vitamin D Total 11/01/18 11/02/18 11/02/18 20:01 05:41 05:41 WBC 6.7 RBC 3.07 L Hgb 8.3 L Hct 27.5 L MCV 89.6 MCH 27.0 L MCHC 30.2 L RDW 13.6 Plt Count 129 L MPV 9.8 Immature Gran % 0.4 Seg Neutrophils % 78.8 Lymphocytes % 11.6 Monocytes % 5.9 Eosinophils % 3.0 Basophils % 0.3 Neutrophils # 5.3 Lymphocytes # 0.8 Monocytes # 0.4 Eosinophils # 0.2 Basophils # 0.0 Sodium 137 Potassium 4.5 Chloride 92 L Carbon Dioxide 41 H* BUN 21 Creatinine 0.84 Est GFR ( Amer) > 60 Est GFR (Non-Af Amer) > 60 BUN/Creatinine Ratio 25 Glucose 172 H POC Glucose 134 H Calculated Osmolality 291 Calcium 8.6 Venous Ioniz Calcium Total Bilirubin 0.5 AST 17 ALT 16 Alkaline Phosphatase 59 Serum Total Protein 5.7 L Albumin 3.0 L Globulin 2.7 Albumin/Globulin Ratio 1.1 25-OH Vitamin D Total 11/02/18 11/02/18 11/02/18 05:41 06:21 11:17 WBC RBC Hgb Hct MCV MCH MCHC RDW Plt Count MPV Immature Gran % Seg Neutrophils % Lymphocytes % Monocytes % Eosinophils % Basophils % Neutrophils # Lymphocytes # Monocytes # Eosinophils # Basophils # Sodium Potassium Chloride Carbon Dioxide BUN Creatinine Est GFR ( Amer) Est GFR (Non-Af Amer) BUN/Creatinine Ratio Glucose POC Glucose 168 H Calculated Osmolality Calcium Venous Ioniz Calcium 1.09 L Total Bilirubin AST ALT Alkaline Phosphatase Serum Total Protein Albumin Globulin Albumin/Globulin Ratio 25-OH Vitamin D Total 34 - Impressions Impressions Fluoroscopy 11/01/18 00:00 IMPRESSION: Intraprocedural fluoroscopic spot images as above. See separate procedure report for more information. D/ / Edilberto Garcia MD / Edilberto Garcia MD Interpreting Provider: Edilberto Garcia MD Hip X-Ray 11/01/18 00:00 IMPRESSION: Intraprocedural fluoroscopic spot images as above. See separate procedure report for more information. D/ / Edilberto Garcia MD / Edilberto Garcia MD Interpreting Provider: Edilberto Garcia MD - ABG Interpretation ABG results: ABG ABG pH 7.39 pH Units (7.32-7.45) 12/19/18 08:56 ABG pCO2 76 mmHg (35-45) H* 11/01/18 08:56 ABG pO2 67 mmHg (85-104) L 11/01/18 08:56 ABG O2 Saturation 91 % (95-98) L 11/01/18 08:56 Consult Discharge Plan - Plan [facility]errals: [facility] [Primary Care Provider] - <Marylin Allison - Last Filed: 11/02/18 15:47> Date of Encounter: 11/02/18 - Time Spent With Patient Total time spent is greater than 50% in coordination of care (as documented) at patient's floor/unit and/or counseling patient: - Constitutional Vitals: Abnormal lab results RBC 3.07 M/mcL (4.19-5.50) L 11/02/18 05:41 Hgb 8.3 g/dL (12.9-16.9) L 11/02/18 05:41 Hct 27.5 % (37.5-50.1) L 11/02/18 05:41 MCH 27.0 pg (28.0-33.3) L 11/02/18 05:41 MCHC 30.2 g/dL (31.6-35.5) L 11/02/18 05:41 Plt Count 129 K/mcL (140-400) L 11/02/18 05:41 ABG pCO2 76 mmHg (35-45) H* 11/01/18 08:56 ABG pO2 67 mmHg (85-104) L 11/01/18 08:56 ABG HCO3 46 mEq/L (21-27) H 11/01/18 08:56 ABG Total CO2 48 mEq/L (20-26) H 11/01/18 08:56 ABG O2 Saturation 91 % (95-98) L 11/01/18 08:56 ABG Base Excess 18 mEq/L (-2 to 3) H 11/01/18 08:56 Chloride 92 mEq/L (98-107) L 11/02/18 05:41 Carbon Dioxide 41 mEq/L (23-29) H* 11/02/18 05:41 Glucose 172 mg/dL (70-105) H 11/02/18 05:41 POC Glucose 168 mg/dL (70-99) H 11/02/18 11:17 Hemoglobin A1c 8.2 % (-5.6) H 11/01/18 06:40 Venous Ioniz Calcium 1.09 mmol/L (1.15-1.35) L 11/02/18 06:21 Serum Total Protein 5.7 g/dL (6.4-8.9) L 11/02/18 05:41 Albumin 3.0 g/dL (3.5-5.7) L 11/02/18 05:41 HDL Cholesterol 27 mg/dL (40-59) L 11/01/18 06:40 - Attending Attestation I performed a history and physical examination of the patient and discussed his management with the resident. I reviewed the residents note and agree with the documented findings and plan of care Palliative Quality Code Status: 10/31/18 21:46 CODE [Resuscitation Status: Active] [RES] Routine Comment: Nurse discussed w/pts. d/t pts. AMS Resuscitation Status: Full Code - Labs CBC & Chem 7: 11/02/18 05:41 11/02/18 05:41 Labs: Laboratory Results - last 24 hr 11/01/18 11/01/18 11/01/18 07:01 11:22 16:23 WBC RBC Hgb Hct MCV MCH MCHC RDW Plt Count MPV Immature Gran % Seg Neutrophils % Lymphocytes % Monocytes % Eosinophils % Basophils % Neutrophils # Lymphocytes # Monocytes # Eosinophils # Basophils # Sodium Potassium Chloride Carbon Dioxide BUN Creatinine Est GFR ( Amer) Est GFR (Non-Af Amer) BUN/Creatinine Ratio Glucose POC Glucose 127 H 146 H 155 H Calculated Osmolality Calcium Venous Ioniz Calcium Total Bilirubin AST ALT Alkaline Phosphatase Serum Total Protein Albumin Globulin Albumin/Globulin Ratio 25-OH Vitamin D Total 11/01/18 11/02/18 11/02/18 20:01 05:41 05:41 WBC 6.7 RBC 3.07 L Hgb 8.3 L Hct 27.5 L MCV 89.6 MCH 27.0 L MCHC 30.2 L RDW 13.6 Plt Count 129 L MPV 9.8 Immature Gran % 0.4 Seg Neutrophils % 78.8 Lymphocytes % 11.6 Monocytes % 5.9 Eosinophils % 3.0 Basophils % 0.3 Neutrophils # 5.3 Lymphocytes # 0.8 Monocytes # 0.4 Eosinophils # 0.2 Basophils # 0.0 Sodium 137 Potassium 4.5 Chloride 92 L Carbon Dioxide 41 H* BUN 21 Creatinine 0.84 Est GFR ( Amer) > 60 Est GFR (Non-Af Amer) > 60 BUN/Creatinine Ratio 25 Glucose 172 H POC Glucose 134 H Calculated Osmolality 291 Calcium 8.6 Venous Ioniz Calcium Total Bilirubin 0.5 AST 17 ALT 16 Alkaline Phosphatase 59 Serum Total Protein 5.7 L Albumin 3.0 L Globulin 2.7 Albumin/Globulin Ratio 1.1 25-OH Vitamin D Total 11/02/18 11/02/18 11/02/18 05:41 06:21 11:17 WBC RBC Hgb Hct MCV MCH MCHC RDW Plt Count MPV Immature Gran % Seg Neutrophils % Lymphocytes % Monocytes % Eosinophils % Basophils % Neutrophils # Lymphocytes # Monocytes # Eosinophils # Basophils # Sodium Potassium Chloride Carbon Dioxide BUN Creatinine Est GFR ( Amer) Est GFR (Non-Af Amer) BUN/Creatinine Ratio Glucose POC Glucose 168 H Calculated Osmolality Calcium Venous Ioniz Calcium 1.09 L Total Bilirubin AST ALT Alkaline Phosphatase Serum Total Protein Albumin Globulin Albumin/Globulin Ratio 25-OH Vitamin D Total 34 - Impressions Impressions Fluoroscopy 11/01/18 00:00 IMPRESSION: Intraprocedural fluoroscopic spot images as above. See separate procedure report for more information. D/ / Edilberto Garcia MD / Edilberto Garcia MD Interpreting Provider: Edilberto Garcia MD Hip X-Ray 11/01/18 00:00 IMPRESSION: Intraprocedural fluoroscopic spot images as above. See separate procedure report for more information. D/ / Edilberto Garcia MD / Edilberto Garcia MD Interpreting Provider: Edilberto Garcia MD - ABG Interpretation ABG results: ABG ABG pH 7.39 pH Units (7.32-7.45) 11/01/18 08:56 ABG pCO2 76 mmHg (35-45) H* 11/01/18 08:56 ABG pO2 67 mmHg (85-104) L 11/01/18 08:56 ABG O2 Saturation 91 % (95-98) L 11/01/18 08:56
[2018-11-02] MEDS: Sennosides/Docusate Sodium TABLET PO SCH (19:56)
[2018-11-03] MEDS: Lactulose Oral Soln 20 GM/30 ML UDC PO SCH ×3 (00:46→16:38)
[2018-11-03] MEDS: Ipratropium/Albuterol Neb 3 ML IH SCH ×4 (03:50→22:35)
[2018-11-03 05:34] LABS: Basophils % 0.3 %; Eosinophils # 0.2 K/mcL (0.0-0.6); Eosinophils % 2.6 %; Hemoglobin 7.9 g/dL (12.9-16.9); Immature Granulocytes % 0.8 % (0-4); Lymphocytes # 1.1 K/mcL (0.6-4.6); Lymphocytes % 17.4 %; Mean Corpuscular HGB Conc 30.4 g/dL (31.6-35.5); Mean Corpuscular Hemoglobin 27.4 pg (28.0-33.3); Mean Corpuscular Volume 90.3 fL (83.0-100.0); Mean Platelet Volume 10.5 fL (9.4-12.4); Monocytes # 0.5 K/mcL (0.0-1.3); Monocytes % 7.5 %; Neutrophils # 4.4 K/mcL (1.6-8.9); Platelet Count 140 K/mcL (140-400); Red Blood Count 2.88 M/mcL (4.19-5.50); Red Cell Distribution Width 14.3 % (11.5-14.5); Segmented Neutrophils % 71.4 %
[2018-11-03] MEDS: *HR* OxyCODONE Immed Rel 5 MG TABLET PO PRN ×3 (05:42→20:58)
[2018-11-03] MEDS: *HR* Heparin 5,000 UNIT/ML VIAL SQ SCH ×3 (05:43→20:57)
[2018-11-03 05:56] LABS: Alanine Aminotransferase 10 Units/L (7-52); Albumin/Globulin Ratio 1.1 (1.1-2.2); Alkaline Phosphatase 56 Units/L (34-104); Aspartate Amino Transferase 17 Units/L (13-39); BUN/Creatinine Ratio 31 (6-26); Bilirubin,Total 0.5 mg/dL (0.3-1.0); Blood Urea Nitrogen 21 mg/dL (8-23); Calcium 8.7 mg/dL (8.6-10.3); Carbon Dioxide 42 mEq/L (23-29); Chloride 93 mEq/L (98-107); Globulin 2.8 g/dL (2.4-3.5); Glucose 103 mg/dL (70-105); Osmolality,Calculated 289 (280-300); Potassium 4.3 mEq/L (3.5-5.1); Sodium 138 mEq/L (136-145); Total Protein 5.8 g/dL (6.4-8.9); eGFR For Non-African Americans > 60 (> 60)
[2018-11-03] MEDS: Insulin LISPRO 300 UNITS/3 ML VIAL SQ SCH ×4 (07:37→22:34)
--- NOTE | 2018-11-03 08:35 | Orthopedics Progress Note ---
Date of Encounter: 11/03/18 Time of Encounter: 08:34 Subjective Principal diagnosis: Hip Fracture Interval history: S: Minimal pain to the left hip No new complaints O: Afebrile on the vital signs are stable Hip wound is clean, dry, and intact. Minimal pain with passive motion of the left hip A: Post left hip nailing P: Therapy for weightbearing as tolerated and mobilization Receiving heparin for DVT prophylaxis; anticipate switch to aspirin upon discharge if no contraindications Objective Vital signs: Vital Signs Temp Pulse Resp BP Pulse Ox 11/03/18 07:04 98.5 F 91 14 133/77 94 11/03/18 03:53 14 93 11/03/18 00:56 99.0 F 86 12 128/97 94 11/02/18 21:56 16 94 11/02/18 20:30 94 11/02/18 19:20 98.9 F 84 10 132/73 98 11/02/18 16:06 99 F 104 18 130/78 91 11/02/18 15:50 20 98 11/02/18 11:12 98.0 F 93 20 133/83 98 11/02/18 11:11 18 97 Intake and Output 11/02/18 11/03/18 11/03/18 23:59 07:59 15:59 Intake Total 120 / 120 Output Total 450 / 450 Balance -330 / -330 Intake: Oral 120 / 120 Output: Urine 450 / 450 Other: Meal Dinner Percent of Meal Consumed 5% Blood Glucose* 226 115 - Labs CBC & BMP: 11/03/18 04:36 11/03/18 04:36 Labs: Abnormal lab results RBC 2.88 M/mcL (4.19-5.50) L 11/03/18 04:36 Hgb 7.9 g/dL (12.9-16.9) L 11/03/18 04:36 Hct 26.0 % (37.5-50.1) L 11/03/18 04:36 MCH 27.4 pg (28.0-33.3) L 11/03/18 04:36 MCHC 30.4 g/dL (31.6-35.5) L 11/03/18 04:36 ABG pCO2 76 mmHg (35-45) H* 11/01/18 08:56 ABG pO2 67 mmHg (85-104) L 11/01/18 08:56 ABG HCO3 46 mEq/L (21-27) H 11/01/18 08:56 ABG Total CO2 48 mEq/L (20-26) H 11/01/18 08:56 ABG O2 Saturation 91 % (95-98) L 11/01/18 08:56 ABG Base Excess 18 mEq/L (-2 to 3) H 11/01/18 08:56 Chloride 93 mEq/L (98-107) L 11/03/18 04:36 Carbon Dioxide 42 mEq/L (23-29) H* 11/03/18 04:36 Creatinine 0.67 mg/dL (0.70-1.30) L 11/03/18 04:36 BUN/Creatinine Ratio 31 (6-26) H 11/03/18 04:36 POC Glucose 226 mg/dL (70-99) H 11/02/18 20:22 Hemoglobin A1c 8.2 % (-5.6) H 11/01/18 06:40 Venous Ioniz Calcium 1.09 mmol/L (1.15-1.35) L 11/02/18 06:21 Serum Total Protein 5.8 g/dL (6.4-8.9) L 11/03/18 04:36 Albumin 3.0 g/dL (3.5-5.7) L 11/03/18 04:36 HDL Cholesterol 27 mg/dL (40-59) L 11/01/18 06:40 Consult Discharge Plan - Plan Additional Instructions: USP DISCHARGE INSTRUCTIONS Dr. Osiris BAUM PERFORMED Reduction and fixation of left hip. Incision care -Daily dressing changes to the left hip with dry gauze and either paper tape or medipore tape. -Avoid soaking wound in water (no hot tubs, bathtubs, swimming pools). -May shower after 2 weeks from surgery date. Carefully wash incision with soap and water. Gently pat it dry. Don't rub the incision, or apply creams or lotions. Sit on a shower stool when showering to keep from falling. Weight bearing status -Weightbearing as tolerated to the bilateral lower extremities. Medications -Pain medication per the discharging medical doctor -Enteric coated aspirin 325 mg by mouth twice per day for 28 days from the date of the surgery. Other -Knee high ELIZABETH hose 23 hours per day -Consult physical and occupational therapy for mobilization. -Up to chair with assistance at least twice per day. -Follow up with your primary care physician to discuss testing for bone mineral density. Follow-up with Dr. Newell at the office 2 weeks from the surgery date for a post operative evaluation. Call the office at [phone] to schedule appointment. [facility]errals: [facility] [Primary Care Provider] -
[2018-11-03] MEDS: Cyanocobalamin (B-12) 1,000 MCG TABLET PO SCH ×2 (08:59→20:57)
[2018-11-03] MEDS: Magnesium Oxide 400 MG TABLET PO SCH ×2 (08:59→20:57)
[2018-11-03] MEDS: Insulin DETEMIR 100 UNIT/ML X5UNITS SQ SCH ×2 (08:59→20:57)
[2018-11-03] MEDS: Cholecalciferol (D-3) 1,000 UNIT TABLET PO SCH (08:59)
[2018-11-03] MEDS: Aspirin 81 MG TAB.CHEW PO SCH (08:59)
[2018-11-03] MEDS: Loratadine 10 MG TABLET PO SCH (08:59)
[2018-11-03] MEDS: Budesonide/Formoterol 80/4.5 MDI IH SCH ×2 (09:52→22:35)
[2018-11-03] MEDS: traMADol 50 MG TABLET PO PRN (09:59)
[2018-11-03] MEDS ORDERED: *HR* OxyCODONE Immed Rel 5 MG TABLET PO PRN (10:39)
--- NOTE | 2018-11-03 12:30 | Internal Med Progress Note ---
Hospitalist Progress Note - Encounter Date of Encounter: 11/03/18 Time of Encounter: 12:28 - Subjective Interval History: patient was seen and examined at bedside. He is status post surgery on 11/01. has no complaints other than mild hip pain while working with physical therapy Pain is controlled, denies N/V/D, SOB, Chest pain, n/v/D. - Exam Vitals: Temp Pulse Resp BP Pulse Ox 98.3 F 86 16 131/75 92 11/03/18 10:52 11/03/18 10:52 11/03/18 10:52 11/03/18 10:52 11/03/18 10:52 Exam: General: Patient is alert, oriented, no acute distress, obese, speaks in full se ntences Head: atraumatic, normocephalic, Eye: normal appearance, PERRL, no scleral icterus, no conjunctival injection ENT: mucous membranes moist, normal external ear exam Neck: normal inspection, trachea midline, full ROM, Chest: normal inspection, symmetric chest rise Respiratory: Decreased breath sounds secondary to body habitus, no crackles, no wheezing in the anterior chest. Cardiovascular: Regular rate and rhythm. s1 and s2 No clicks, rubs, gallops, or murmors. Abdomen: Bowel sounds present normoactive x-4 quadrants. Abdomen is soft, nondistended. no Epigastric tenderness. No guarding or rebound. No organomegaly noted, obese, no ascites appreciated musculoskeletal: Spontaneously moving all extremities. ROM reduced and the left hip secondary to fracture, able to move toes. Pulses intact Skin: warm, dry, intact. Neuro: Alert and oriented x3 (place, time, person). Has bilateral intention tremors, no focal deficit Psych: Patient's affect is normal - Assessment and Plan (1) Fracture of hip Current Visit: Yes Status: Inactive Assessment and Plan: Acute fx of neck of left femur S/P left hip nailing in OR 11/01/18 s/p mechanical fall pain control heparin sc for DVT prophylaxis - watch platelets Pt/OT CM / SW Vitamin D 34 incentive spirometry XR of the left hip shows acute, comminuted, and displaced left proximal femur fracture. No evidence of dislocation. Severe osteopenia with degenerative changes of the lower lumbar spine and bilateral hips. was found High risk for surgery due to multiple comorbidities mentioned below (2) Postoperative anemia Current Visit: Yes Status: Acute Assessment and Plan: baseline H/H 10-11 started the on oral iron will continue to monitor H/H closely Type and screen transfuse 1 unit if continue to trend down currently 7.9 (3) Chronic respiratory failure with hypercapnia Current Visit: Yes Status: Acute Assessment and Plan: PCO2 ranges in the 70s to 80s avoid excessive O2 as he is a chronic retainer continue bipap home settings continue with O2 as per home settings - keep sats anywhere from 88-92 continue home inhalers and Duo-nebs Q6H Pulmonology on board incentive spirometry (4) CHF (congestive heart failure) Current Visit: Yes Status: Chronic Assessment and Plan: continue with ASA, BB, lasix TTE 10/31: Impressions: LVEF 70%.Normal LV chamber size, wall thickness and function. Normal right ventricular structure and function. No significant valvular dysfunction. No evidence of pulmonary hypertension. (5) COPD (chronic obstructive pulmonary disease) Current Visit: Yes Status: Chronic Assessment and Plan: Hx of chronic COPD. Stable. Pt. wears 5L home O2 continuously. SOB on exam which he states is his baseline. Supplemental O2 with titration and SPO2 monitoring. Continue patient's Symbicort, scheduled DuoNeb's, inhaler, and supplemental O2 with titration and SPO2 monitoring. (6) Cirrhosis Current Visit: Yes Status: Chronic Assessment and Plan: Hx of chronic cirrhosis that pt. currently not decompensated ethanol level ordered which is <10. Ammonia 43 Continue pts. PO lactulose and rest of medications if not CI (7) Counseling regarding goals of care Current Visit: Yes Status: Acute Assessment and Plan: palliative recs appreciated (8) Anxiety and depression Current Visit: Yes Status: Chronic Assessment and Plan: Hx of chronic anxiety and depression. Continue pts. Zoloft and hydroxyzine. (9) DVT prophylaxis Current Visit: Yes Status: Acute Assessment and Plan: scds and heparin sc DVT prophylaxis on dischareg as per orthopedics - Time Spent with Patient Total time spent is greater than 50% in coordination of care (as documented) at patient's floor/unit and/or counseling patient: Internal Medicine: Result - Labs CBC & Chem 7: 11/03/18 04:36 11/03/18 04:36 Labs: Short CBC 11/03/18 Range/Units 04:36 WBC 6.2 (4.3-11.1) K/mcL Hgb 7.9 L (12.9-16.9) g/dL Hct 26.0 L (37.5-50.1) % Plt Count 140 (140-400) K/mcL Neutrophils # 4.4 (1.6-8.9) K/mcL BMP 11/03/18 04:36 Sodium 138 Potassium 4.3 Chloride 93 L Carbon Dioxide 42 H* BUN 21 Creatinine 0.67 L Glucose 103 Calcium 8.7 Liver Function 11/03/18 Range/Units 04:36 Total Bilirubin 0.5 (0.3-1.0) mg/dL AST 17 (13-39) Units/L ALT 10 (7-52) Units/L Alkaline Phosphatase 56 (34-104) Units/L Albumin 3.0 L (3.5-5.7) g/dL - ABG Interpretation ABG results: ABG ABG pH 7.39 pH Units (7.32-7.45) 11/01/18 08:56 ABG pCO2 76 mmHg (35-45) H* 11/01/18 08:56 ABG pO2 67 mmHg (85-104) L 11/01/18 08:56 ABG O2 Saturation 91 % (95-98) L 11/01/18 08:56 Consult Discharge Plan - Plan Additional Instructions: LONGTERM DISCHARGE INSTRUCTIONS Dr. Newell PROCEDURE PERFORMED Reduction and fixation of left hip. Incision care -Daily dressing changes to the left hip with dry gauze and either paper tape or medipore tape. -Avoid soaking wound in water (no hot tubs, bathtubs, swimming pools). -May shower after 2 weeks from surgery date. Carefully wash incision with soap and water. Gently pat it dry. Don't rub the incision, or apply creams or lotions. Sit on a shower stool when showering to keep from falling. Weight bearing status -Weightbearing as tolerated to the bilateral lower extremities. Medications -Pain medication per the discharging medical doctor -Enteric coated aspirin 325 mg by mouth twice per day for 28 days from the date of the surgery. Other -Knee high ELIZABETH hose 23 hours per day -Consult physical and occupational therapy for mobilization. -Up to chair with assistance at least twice per day. -Follow up with your primary care physician to discuss testing for bone mineral density. Follow-up with Dr. Newell at the office 2 weeks from the surgery date for a post operative evaluation. Call the office at [phone] to schedule appointment. [facility]errals: [facility] [Primary Care Provider] - (1) Fracture of hip Qualifiers: Encounter type: initial encounter Fracture type: closed Laterality: left Qualified Code(s): S72.002A - Fracture of unspecified part of neck of left femur, initial encounter for closed fracture (4) CHF (congestive heart failure) Qualifiers: Heart failure type: diastolic Heart failure chronicity: chronic Qualified Code(s): I50.32 - Chronic diastolic (congestive) heart failure (5) COPD (chronic obstructive pulmonary disease) Qualifiers: COPD type: COPD with acute exacerbation Qualified Code(s): J44.1 - Chronic obstructive pulmonary disease with (acute) exacerbation (6) Cirrhosis Qualifiers: Hepatic cirrhosis type: other cirrhosis Qualified Code(s): K74.69 - Other cirrhosis of liver
--- NOTE | 2018-11-03 13:48 | Palliative Progress Note ---
<Hali Sandoval - Last Filed: 11/03/18 15:37> Date of Encounter: 11/03/18 Time of Encounter: 13:44 - Assessment and plan (1) Acute exacerbation of chronic obstructive airways disease Current Visit: No Status: Acute Assessment and plan: Home oxygen requirement NC 4-5L. Currently on 3.5L NC and breathing comfortably. The fan has helped his breathing. Continue current management. (2) Fracture of hip Current Visit: Yes Status: Inactive Assessment and plan: POD #2, pain currently 7-8/10. Home pain control Oxycodone 10mg Q6H prn. Increased oxycodone from 10mg Q6H to Q4H early today. Will increase to Oxycodone 15mg Q4H. Improvement in pain after increase and patient was able to fall asleep. Patient still straining to have BM, currently on Senna plus, Lactulose, mag-ox. Will increase Senna plus from 1 tablet daily to BID. Plan: - Ibuprofen 600mg BID scheduled - Oxycodone 15mg Q4H prn severe pain - Tylenol 650mg PO Q6H prn - constipation: Senna plus 1 tablet BID wilma , lactulose 10mg PO Q8H, and mag-ox 400mg BID wilma Qualifiers: Encounter type: initial encounter Fracture type: closed Laterality: left Qualified Code(s): S72.002A - Fracture of unspecified part of neck of left femur, initial encounter for closed fracture (3) Counseling regarding goals of care Current Visit: Yes Status: Acute Assessment and plan: Current living will states full code. Discussed with patient the option of DNR and he would prefer to not be resuscitated, but would like him to be resuscitated. They have decided to discuss this more before making changes to his code status. He was instructed that he could change his code status at any point in time. - Time Spent With Patient Total time spent is greater than 50% in coordination of care (as documented) at patient's floor/unit and/or counseling patient: - Subjective Interval history: Mr. Thompson is a 62 year old male PMH of alcohol-related cirrhosis, CHF, COPD, CAD, diabetes, hepatitis C, HLD, HTN, liver disease, SC with stents, anxiety, and depression who desires to be full code who presented from [facility] ED w/CC of left hip pain after fall who was found to have a L hip fracture and is POD#2. Today, patient is complaining of being in pain. He stated his pain in his hip and back is a 7-8/10 at that time Oxycodone was given 2 hrs earlier. Oxycodone dose was increased, and patient's pain and sweating improved. Concerning his breathing, he feels like he is at baseline and is on 3.5L NC. Today, he had a BM for the first time in 5 days. Discussion was had with [place] about his wishes for his code status and he would prefer to not be resuscitated but wanted to talk to his before changing his code status. His was was called and we discussed what his wishes are and her wishes are that he remains full code and then she can decide at that time what to do. She wanted to discuss this more in person with him and he did too before changing his code status therefore he will remain full code. - Constitutional Vitals: Abnormal lab results RBC 2.88 M/mcL (4.19-5.50) L 11/03/18 04:36 Hgb 7.9 g/dL (12.9-16.9) L 11/03/18 04:36 Hct 26.0 % (37.5-50.1) L 11/03/18 04:36 MCH 27.4 pg (28.0-33.3) L 11/03/18 04:36 MCHC 30.4 g/dL (31.6-35.5) L 11/03/18 04:36 ABG pCO2 76 mmHg (35-45) H* 11/01/18 08:56 ABG pO2 67 mmHg (85-104) L 11/01/18 08:56 ABG HCO3 46 mEq/L (21-27) H 11/01/18 08:56 ABG Total CO2 48 mEq/L (20-26) H 11/01/18 08:56 ABG O2 Saturation 91 % (95-98) L 11/01/18 08:56 ABG Base Excess 18 mEq/L (-2 to 3) H 11/01/18 08:56 Chloride 93 mEq/L (98-107) L 11/03/18 04:36 Carbon Dioxide 42 mEq/L (23-29) H* 11/03/18 04:36 Creatinine 0.67 mg/dL (0.70-1.30) L 11/03/18 04:36 BUN/Creatinine Ratio 31 (6-26) H 11/03/18 04:36 POC Glucose 255 mg/dL (70-99) H 11/03/18 11:00 Hemoglobin A1c 8.2 % (-5.6) H 11/01/18 06:40 Venous Ioniz Calcium 1.09 mmol/L (1.15-1.35) L 11/02/18 06:21 Serum Total Protein 5.8 g/dL (6.4-8.9) L 11/03/18 04:36 Albumin 3.0 g/dL (3.5-5.7) L 11/03/18 04:36 HDL Cholesterol 27 mg/dL (40-59) L 11/01/18 06:40 - Additional findings Additional findings: Constitutional: Alert, mild acute distress and diaphoretic Head: Normocephalic, atraumatic, normal contour and symmetric, no masses, Heart: Normal, regular rate and rhythm, systolic murmurs Lungs: lungs with decrease air movement bilaterally, no intercostal retractions, no wheezes, rales, or rhonchi Abdomen: normal bowel sounds, Soft, nondistended, nontender, and no masses palpable, no guarding or rigidity. Extremities: bilateral +1 LE edema, able to wiggle toes bilaterally, No clubbing, cyanosis, , radial pulse +2/4, capillary refill <2sec. Skin: Skin clammy, pale, bruising on arm, no rashes, no jaundice Neurologic: alert, speech clear, thought process logical Psych: Cooperative with exam, good eye contact, cognitive function intact Palliative Quality Palliative Quality: Screen for Code Status: Yes, Screen for Goals of Care: Yes, Screen for Pain: Yes, If Pain Regimen Started, Initiate Bowel Regimen: Yes, Screen for Nausea/Vomitting: NA Code Status: 10/31/18 21:46 CODE [Resuscitation Status: Active] [RES] Routine Comment: Nurse discussed w/pts. d/t pts. AMS Resuscitation Status: Full Code - Labs CBC & Chem 7: 11/03/18 04:36 11/03/18 04:36 Labs: Laboratory Results - last 24 hr 11/02/18 11/02/18 11/02/18 05:41 07:30 16:04 WBC RBC Hgb Hct MCV MCH MCHC RDW Plt Count MPV Immature Gran % Seg Neutrophils % Lymphocytes % Monocytes % Eosinophils % Basophils % Neutrophils # Lymphocytes # Monocytes # Eosinophils # Basophils # Sodium Potassium Chloride Carbon Dioxide BUN Creatinine Est GFR ( Amer) Est GFR (Non-Af Amer) BUN/Creatinine Ratio Glucose POC Glucose 157 H 321 H Calculated Osmolality Calcium Total Bilirubin AST ALT Alkaline Phosphatase Serum Total Protein Albumin Globulin Albumin/Globulin Ratio 25-OH Vitamin D Total 34 11/02/18 11/03/18 11/03/18 20:22 04:36 04:36 WBC 6.2 RBC 2.88 L Hgb 7.9 L Hct 26.0 L MCV 90.3 MCH 27.4 L MCHC 30.4 L RDW 14.3 Plt Count 140 MPV 10.5 Immature Gran % 0.8 Seg Neutrophils % 71.4 Lymphocytes % 17.4 Monocytes % 7.5 Eosinophils % 2.6 Basophils % 0.3 Neutrophils # 4.4 Lymphocytes # 1.1 Monocytes # 0.5 Eosinophils # 0.2 Basophils # 0.0 Sodium 138 Potassium 4.3 Chloride 93 L Carbon Dioxide 42 H* BUN 21 Creatinine 0.67 L Est GFR ( Amer) > 60 Est GFR (Non-Af Amer) > 60 BUN/Creatinine Ratio 31 H Glucose 103 POC Glucose 226 H Calculated Osmolality 289 Calcium 8.7 Total Bilirubin 0.5 AST 17 ALT 10 Alkaline Phosphatase 56 Serum Total Protein 5.8 L Albumin 3.0 L Globulin 2.8 Albumin/Globulin Ratio 1.1 25-OH Vitamin D Total 11/03/18 11/03/18 07:21 11:00 WBC RBC Hgb Hct MCV MCH MCHC RDW Plt Count MPV Immature Gran % Seg Neutrophils % Lymphocytes % Monocytes % Eosinophils % Basophils % Neutrophils # Lymphocytes # Monocytes # Eosinophils # Basophils # Sodium Potassium Chloride Carbon Dioxide BUN Creatinine Est GFR ( Amer) Est GFR (Non-Af Amer) BUN/Creatinine Ratio Glucose POC Glucose 115 H 255 H Calculated Osmolality Calcium Total Bilirubin AST ALT Alkaline Phosphatase Serum Total Protein Albumin Globulin Albumin/Globulin Ratio 25-OH Vitamin D Total - ABG Interpretation ABG results: ABG ABG pH 7.39 pH Units (7.32-7.45) 11/01/18 08:56 ABG pCO2 76 mmHg (35-45) H* 11/01/18 08:56 ABG pO2 67 mmHg (85-104) L 11/01/18 08:56 ABG O2 Saturation 91 % (95-98) L 11/01/18 08:56 Consult Discharge Plan - Plan Additional Instructions: RESIDENTIAL DISCHARGE INSTRUCTIONS Dr. Newell PROCEDURE PERFORMED Reduction and fixation of left hip. Incision care -Daily dressing changes to the left hip with dry gauze and either paper tape or medipore tape. -Avoid soaking wound in water (no hot tubs, bathtubs, swimming pools). -May shower after 2 weeks from surgery date. Carefully wash incision with soap and water. Gently pat it dry. Don't rub the incision, or apply creams or lotions. Sit on a shower stool when showering to keep from falling. Weight bearing status -Weightbearing as tolerated to the bilateral lower extremities. Medications -Pain medication per the discharging medical doctor -Enteric coated aspirin 325 mg by mouth twice per day for 28 days from the date of the surgery. Other -Knee high ELIZABETH hose 23 hours per day -Consult physical and occupational therapy for mobilization. -Up to chair with assistance at least twice per day. -Follow up with your primary care physician to discuss testing for bone mineral density. Follow-up with Dr. Newell at the office 2 weeks from the surgery date for a post operative evaluation. Call the office at [phone] to schedule appointment. [facility]errals: [facility] Care Provider[facility] - <Marylin Allison - Last Filed: 11/03/18 16:14> Date of Encounter: 11/03/18 - Time Spent With Patient Total time spent is greater than 50% in coordination of care (as documented) at patient's floor/unit and/or counseling patient: - Constitutional Vitals: Abnormal lab results RBC 2.88 M/mcL (4.19-5.50) L 11/03/18 04:36 Hgb 7.9 g/dL (12.9-16.9) L 11/03/18 04:36 Hct 26.0 % (37.5-50.1) L 11/03/18 04:36 MCH 27.4 pg (28.0-33.3) L 11/03/18 04:36 MCHC 30.4 g/dL (31.6-35.5) L 11/03/18 04:36 ABG pCO2 76 mmHg (35-45) H* 11/01/18 08:56 ABG pO2 67 mmHg (85-104) L 11/01/18 08:56 ABG HCO3 46 mEq/L (21-27) H 11/01/18 08:56 ABG Total CO2 48 mEq/L (20-26) H 11/01/18 08:56 ABG O2 Saturation 91 % (95-98) L 11/01/18 08:56 ABG Base Excess 18 mEq/L (-2 to 3) H 11/01/18 08:56 Chloride 93 mEq/L (98-107) L 11/03/18 04:36 Carbon Dioxide 42 mEq/L (23-29) H* 11/03/18 04:36 Creatinine 0.67 mg/dL (0.70-1.30) L 11/03/18 04:36 BUN/Creatinine Ratio 31 (6-26) H 11/03/18 04:36 POC Glucose 255 mg/dL (70-99) H 11/03/18 11:00 Hemoglobin A1c 8.2 % (-5.6) H 11/01/18 06:40 Venous Ioniz Calcium 1.09 mmol/L (1.15-1.35) L 11/02/18 06:21 Serum Total Protein 5.8 g/dL (6.4-8.9) L 11/03/18 04:36 Albumin 3.0 g/dL (3.5-5.7) L 11/03/18 04:36 HDL Cholesterol 27 mg/dL (40-59) L 11/01/18 06:40 - Attending Attestation I performed a history and physical examination of the patient and discussed his management with the resident. I reviewed the residents note and agree with the documented findings and plan of care, except as follow: We met with patient, educated patient about his underlying COPD, explained to pt that he has end-stage COPD and discussed advanced care planning. Explained that CPR would not be recommended or beneficial in his case and would result in prolonging the dying process. Pt was agreeable, but asked me to speak to his . Called pt's Sheri on speaker phone and explained the condition to her. was resistant to any code status changes, and stated she would like to discuss more with pt. Pt was empowered to express his wishes. Emotional support provided. Patient is to be discharged to rehab once stable. Palliative care will follow tomorrow for pain management. Palliative Quality Code Status: 10/31/18 21:46 CODE [Resuscitation Status: Active] [RES] Routine Comment: Nurse discussed w/pts. d/t pts. AMS Resuscitation Status: Full Code - Labs CBC & Chem 7: 11/03/18 04:36 11/03/18 04:36 Labs: Laboratory Results - last 24 hr 11/02/18 11/02/18 11/02/18 07:30 16:04 20:22 WBC RBC Hgb Hct MCV MCH MCHC RDW Plt Count MPV Immature Gran % Seg Neutrophils % Lymphocytes % Monocytes % Eosinophils % Basophils % Neutrophils # Lymphocytes # Monocytes # Eosinophils # Basophils # Sodium Potassium Chloride Carbon Dioxide BUN Creatinine Est GFR ( Amer) Est GFR (Non-Af Amer) BUN/Creatinine Ratio Glucose POC Glucose 157 H 321 H 226 H Calculated Osmolality Calcium Total Bilirubin AST ALT Alkaline Phosphatase Serum Total Protein Albumin Globulin Albumin/Globulin Ratio 11/03/18 11/03/18 11/03/18 04:36 04:36 07:21 WBC 6.2 RBC 2.88 L Hgb 7.9 L Hct 26.0 L MCV 90.3 MCH 27.4 L MCHC 30.4 L RDW 14.3 Plt Count 140 MPV 10.5 Immature Gran % 0.8 Seg Neutrophils % 71.4 Lymphocytes % 17.4 Monocytes % 7.5 Eosinophils % 2.6 Basophils % 0.3 Neutrophils # 4.4 Lymphocytes # 1.1 Monocytes # 0.5 Eosinophils # 0.2 Basophils # 0.0 Sodium 138 Potassium 4.3 Chloride 93 L Carbon Dioxide 42 H* BUN 21 Creatinine 0.67 L Est GFR ( Amer) > 60 Est GFR (Non-Af Amer) > 60 BUN/Creatinine Ratio 31 H Glucose 103 POC Glucose 115 H Calculated Osmolality 289 Calcium 8.7 Total Bilirubin 0.5 AST 17 ALT 10 Alkaline Phosphatase 56 Serum Total Protein 5.8 L Albumin 3.0 L Globulin 2.8 Albumin/Globulin Ratio 1.1 11/03/18 11:00 WBC RBC Hgb Hct MCV MCH MCHC RDW Plt Count MPV Immature Gran % Seg Neutrophils % Lymphocytes % Monocytes % Eosinophils % Basophils % Neutrophils # Lymphocytes # Monocytes # Eosinophils # Basophils # Sodium Potassium Chloride Carbon Dioxide BUN Creatinine Est GFR ( Amer) Est GFR (Non-Af Amer) BUN/Creatinine Ratio Glucose POC Glucose 255 H Calculated Osmolality Calcium Total Bilirubin AST ALT Alkaline Phosphatase Serum Total Protein Albumin Globulin Albumin/Globulin Ratio - ABG Interpretation ABG results: ABG ABG pH 7.39 pH Units (7.32-7.45) 11/01/18 08:56 ABG pCO2 76 mmHg (35-45) H* 11/01/18 08:56 ABG pO2 67 mmHg (85-104) L 11/01/18 08:56 ABG O2 Saturation 91 % (95-98) L 11/01/18 08:56
[2018-11-03 14:48] LABS: HCV Quant Log NOT DETECTED log IU/mL
--- NOTE | 2018-11-03 18:27 | Electrocardiograph Report ---
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
[2018-11-03] MEDS: Sennosides/Docusate Sodium TABLET PO SCH (20:57)
[2018-11-03] MEDS: Ibuprofen 600 MG TABLET PO SCH (20:58)
[2018-11-04] MEDS: Lactulose Oral Soln 20 GM/30 ML UDC PO SCH ×2 (00:42→08:12)
[2018-11-04] MEDS: Ipratropium/Albuterol Neb 3 ML IH SCH ×2 (03:53→10:37)
[2018-11-04 05:36] LABS: Basophils % 0.6 %; Eosinophils # 0.3 K/mcL (0.0-0.6); Eosinophils % 5.5 %; Hematocrit 26.1 % (37.5-50.1); Hemoglobin 7.8 g/dL (12.9-16.9); Immature Granulocytes % 1.5 % (0-4); Lymphocytes # 1.2 K/mcL (0.6-4.6); Lymphocytes % 24.2 %; Mean Corpuscular HGB Conc 29.9 g/dL (31.6-35.5); Mean Corpuscular Hemoglobin 27.3 pg (28.0-33.3); Mean Corpuscular Volume 91.3 fL (83.0-100.0); Mean Platelet Volume 9.9 fL (9.4-12.4); Monocytes # 0.4 K/mcL (0.0-1.3); Monocytes % 8.2 %; Neutrophils # 2.9 K/mcL (1.6-8.9); Platelet Count 137 K/mcL (140-400); Red Blood Count 2.86 M/mcL (4.19-5.50); Red Cell Distribution Width 14.6 % (11.5-14.5)
[2018-11-04] MEDS: *HR* Heparin 5,000 UNIT/ML VIAL SQ SCH (05:37)
[2018-11-04] MEDS: *HR* OxyCODONE Immed Rel 5 MG TABLET PO PRN ×2 (05:42→10:47)
[2018-11-04 06:03] LABS: Alanine Aminotransferase 10 Units/L (7-52); Albumin 2.9 g/dL (3.5-5.7); Alkaline Phosphatase 51 Units/L (34-104); Aspartate Amino Transferase 18 Units/L (13-39); BUN/Creatinine Ratio 31 (6-26); Bilirubin,Total 0.6 mg/dL (0.3-1.0); Blood Urea Nitrogen 24 mg/dL (8-23); Calcium 8.7 mg/dL (8.6-10.3); Carbon Dioxide 43 mEq/L (23-29); Chloride 92 mEq/L (98-107); Globulin 2.8 g/dL (2.4-3.5); Glucose 84 mg/dL (70-105); Osmolality,Calculated 289 (280-300); Potassium 3.9 mEq/L (3.5-5.1); Sodium 138 mEq/L (136-145); Total Protein 5.7 g/dL (6.4-8.9); eGFR For Non-African Americans > 60 (> 60)
--- NOTE | 2018-11-04 06:31 | Orthopedics Progress Note ---
Date of Encounter: 11/04/18 Time of Encounter: 06:31 Subjective Principal diagnosis: Hip Fracture Interval history: Patient was seen this morning Afebrile vital signs stable. Operative extremity: Neurovascularly intact Dressing clean dry and intact Calves nontender Assessment and plan: Continue with postoperative care Stable for discharge Objective Vital signs: Vital Signs Temp Pulse Resp BP Pulse Ox 11/04/18 05:12 98.0 F 72 12 124/76 98 11/04/18 03:53 12 96 11/03/18 23:25 98.1 F 73 10 115/73 98 11/03/18 22:35 13 95 11/03/18 21:00 95 11/03/18 19:22 98.4 F 83 18 129/80 95 11/03/18 16:13 18 90 11/03/18 16:03 98.1 F 96 18 152/82 90 11/03/18 10:52 98.3 F 86 16 131/75 92 11/03/18 09:55 18 92 11/03/18 07:04 98.5 F 91 14 133/77 94 Intake and Output 11/03/18 11/03/18 11/04/18 15:59 23:59 07:59 Intake Total 290 / 290 590 / 590 0 / 0 Output Total 175 / 175 0 / 0 Balance 290 / 290 415 / 415 0 / 0 Intake: Oral 290 / 290 590 / 590 0 / 0 Output: Urine 175 / 175 0 / 0 Other: Meal Lunch Dinner Percent of Meal Consumed 95% 95% Stool Size Small Stool Consistency soft Stool Color Brown # Voids 1 Weight 104.8 kg Blood Glucose* 255 117 Patient Weight 11/04/18 23:59 Weight 104.8 kg - Labs CBC & BMP: 11/04/18 05:04 11/04/18 05:04 Labs: Abnormal lab results RBC 2.86 M/mcL (4.19-5.50) L 11/04/18 05:04 Hgb 7.8 g/dL (12.9-16.9) L 11/04/18 05:04 Hct 26.1 % (37.5-50.1) L 11/04/18 05:04 MCH 27.3 pg (28.0-33.3) L 11/04/18 05:04 MCHC 29.9 g/dL (31.6-35.5) L 11/04/18 05:04 RDW 14.6 % (11.5-14.5) H 11/04/18 05:04 Plt Count 137 K/mcL (140-400) L 11/04/18 05:04 ABG pCO2 76 mmHg (35-45) H* 11/01/18 08:56 ABG pO2 67 mmHg (85-104) L 11/01/18 08:56 ABG HCO3 46 mEq/L (21-27) H 11/01/18 08:56 ABG Total CO2 48 mEq/L (20-26) H 11/01/18 08:56 ABG O2 Saturation 91 % (95-98) L 11/01/18 08:56 ABG Base Excess 18 mEq/L (-2 to 3) H 11/01/18 08:56 Chloride 92 mEq/L (98-107) L 11/04/18 05:04 Carbon Dioxide 43 mEq/L (23-29) H* 11/04/18 05:04 BUN 24 mg/dL (8-23) H 11/04/18 05:04 BUN/Creatinine Ratio 31 (6-26) H 11/04/18 05:04 POC Glucose 211 mg/dL (70-99) H 11/03/18 16:55 Hemoglobin A1c 8.2 % (-5.6) H 11/01/18 06:40 Venous Ioniz Calcium 1.09 mmol/L (1.15-1.35) L 11/02/18 06:21 Serum Total Protein 5.7 g/dL (6.4-8.9) L 11/04/18 05:04 Albumin 2.9 g/dL (3.5-5.7) L 11/04/18 05:04 Albumin/Globulin Ratio 1.0 (1.1-2.2) L 11/04/18 05:04 HDL Cholesterol 27 mg/dL (40-59) L 11/01/18 06:40 Consult Discharge Plan - Plan Additional Instructions: [facility] DISCHARGE INSTRUCTIONS Dr. Newell PROCEDURE PERFORMED Reduction and fixation of left hip. Incision care -Daily dressing changes to the left hip with dry gauze and either paper tape or medipore tape. -Avoid soaking wound in water (no hot tubs, bathtubs, swimming pools). -May shower after 2 weeks from surgery date. Carefully wash incision with soap and water. Gently pat it dry. Don't rub the incision, or apply creams or lotions. Sit on a shower stool when showering to keep from falling. Weight bearing status -Weightbearing as tolerated to the bilateral lower extremities. Medications -Pain medication per the discharging medical doctor -Enteric coated aspirin 325 mg by mouth twice per day for 28 days from the date of the surgery. Other -Knee high ELIZABETH hose 23 hours per day -Consult physical and occupational therapy for mobilization. -Up to chair with assistance at least twice per day. -Follow up with your primary care physician to discuss testing for bone mineral density. Follow-up with Dr. Newell at the office 2 weeks from the surgery date for a post operative evaluation. Call the office at [phone] to schedule appointment. [facility]errals: [facility] [Primary Care Provider[facility] -
[2018-11-04 07:46] VITALS: BP 143/79
[2018-11-04] MEDS: Magnesium Oxide 400 MG TABLET PO SCH (08:11)
[2018-11-04] MEDS: Loratadine 10 MG TABLET PO SCH (08:11)
[2018-11-04] MEDS: Ibuprofen 600 MG TABLET PO SCH (08:11)
[2018-11-04] MEDS: Cholecalciferol (D-3) 1,000 UNIT TABLET PO SCH (08:11)
[2018-11-04] MEDS: Sennosides/Docusate Sodium TABLET PO SCH (08:11)
[2018-11-04] MEDS: Cyanocobalamin (B-12) 1,000 MCG TABLET PO SCH (08:12)
[2018-11-04] MEDS: Insulin DETEMIR 100 UNIT/ML X5UNITS SQ SCH (08:12)
[2018-11-04] MEDS: Aspirin 81 MG TAB.CHEW PO SCH (08:12)
[2018-11-04] MEDS: Insulin LISPRO 300 UNITS/3 ML VIAL SQ SCH (08:13)
--- NOTE | 2018-11-04 10:02 | Discharge Summary ---
- NOTES TO OUTPATIENT PROVIDER Notes to Outpatient Provider: please check CBC in 2-3 days Orders not resulted at time of discharge: Pending orders 11/01/18 06:40 Hepatitis C Virus Quant AM 0400 Date of Encounter: 11/04/18 Time of Encounter: 09:58 Hospital course: 62 year old man with alcohol-related cirrhosis, HF, O2 dependent COPD, CAD, diabetes mellitus, hepatitis C, HL, HTN, previous myocardial infarction greater than 1 year ago (pt. states he has stents but cannot recall how many and previous records show heart catheterization on 08/31/17), anxiety, and depression who presented from [facility] ED w/CC of left hip pain r/t fall sustained when pt. fell getting out of the bathtub. Pt. reported he uses 5L O2/NC at home continuously and just started seeing Pulmonology earlier this year d/t his COPD. He was found to have left hip fracture. # Fracture of neck of left femur left hip after mechanical fall - S/P left hip nailing in OR 11/01/18 - DVT prophylaxis was maintained with heparin sc while inpatient, and can follow orthopedics instructions (see below) for prophylaxis after discharge # Postoperative anemia - Baseline H/H 10-11, it was 9.3 on admission and 8.3 post-op, it has remained 7.8-7.9 for 2 days, without evidence of acute bleeding or hemodynamic instability thus will not transfuse at this time - oral iron was started - please check CBC in 2-3 days or prn # Chronic respiratory failure with hypercapnia PCO2 ranges in the 70s to 80s avoid excessive O2 as he is a chronic retainer continue bipap home settings continue with O2 as per home settings - keep sats anywhere from 88-92 continue home inhalers and Duo-nebs Q6H # CHF (congestive heart failure) - ASA, BB, lasix prn were continued TTE 10/31: Impressions: LVEF 70%.Normal LV chamber size, wall thickness and function. Normal right ventricular structure and function. No significant valvular dysfunction. No evidence of pulmonary hypertension. # COPD (chronic obstructive pulmonary disease) without exacerbation Hx of chronic COPD. Stable. Pt. wears 5L home O2 continuously. SOB on exam which he states is his baseline. Supplemental O2 with titration and SPO2 monitoring. Continue patient's Symbicort, scheduled DuoNeb's, inhaler, and supplemental O2 with titration and SPO2 monitoring. # IDDM Home insulin regimen was continued. # Cirrhosis Hx of chronic cirrhosis that pt. currently not decompensated ethanol level ordered which is <10. Ammonia 43 Lactulose was continued # Counseling regarding goals of care patient requested DNR-CCA on admission but altered mental sttaus was suspected. Patient's reported that his living will stated Full code. Palliative care was consulted, and after discussion deemed that patient will rmeain full code for now. # Anxiety and depression Zoloft and hydroxyzine were continued # DVT prophylaxis scds and heparin sc were continued while inpatient DVT prophylaxis on discharge as per orthopedics I called and discussed the case with [place] physician Dr. Benson on 11/04/18 who has accepted the patient ([phone]) and will graciously facilitate the transfer. Discharge discussed with: patient, nurse, functional consultant - Time Spent with Patient Total time spent providing and/or coordinating discharge services: Greater than 30 minutes - Discharge Medications Home Medications: RX: Cholecalciferol (Vitamin D3) [Vitamin D3] 2,000 unit PO BID 03/15/16 [History] RX: Magnesium 400 mg PO BID 03/15/16 [History] RX: Budesonide/Formoterol 80/4.5 [Symbicort 80/4.5] 2 puff IH BIDR #2 inhaler 03/17/16 [Rx] RX: Cyanocobalamin (Vitamin B-12) [Vitamin B12] 1,000 mcg PO BID 04/03/17 [History] RX: Loratadine [Allergy Relief] 10 mg PO DAILY 04/03/17 [History] RX: Omeprazole 20 mg PO DAILY 04/03/17 [History] RX: Aspirin 81 mg PO DAILY tab.chew 09/05/17 [Rx] RX: Furosemide [Lasix] 20 mg PO DAILY PRN #30 tablet 12/19/17 [Rx] RX: Oxycodone HCl [Oxaydo] 10 mg PO Q6H 02/24/18 [History] RX: Insulin ASPART [Novolog Flexpen] 5 - 10 unit SQ TIDWM 08/09/18 [History] RX: Insulin DETEMIR [Levemir] 30 unit SQ BID 08/09/18 [History] RX: Lactulose 10 gm PO Q8HR 08/09/18 [History] RX: Potassium Chloride [K-Tab ER] 20 meq PO DAILY 08/09/18 [History] RX: Sertraline [Zoloft] 50 mg PO DAILY 08/09/18 [History] RX: hydrOXYzine HCl [Hydroxyzine HCl] 25 mg PO HS PRN 08/09/18 [History] RX: Sennosides/Docusate Sodium [Senna-Docusate Sodium Tablet] 1 tab PO HS 10/07/18 [History] RX: Zinc [Zinc Chelated] 50 mg PO BID 10/07/18 [History] RX: Carvedilol [Coreg] 6.25 mg PO BIDWM #60 tablet 10/12/18 [Rx] RX: Ipratropium/Albuterol Neb [Duoneb] 3 ml IH Q6HR PRN #60 vial.neb 10/12/18 [Rx] RX: Acetaminophen [Tylenol] 650 mg PO Q6HR PRN tablet 11/04/18 [Rx] RX: Ferrous Sulfate 325 mg PO BIDWM tablet 11/04/18 [Rx] RX: Naloxone [Narcan] 0.4 mg IVP Q2MIN PRN inj 11/04/18 [Rx] Allergies/Adverse Reactions: Allergy/AdvReac Type Severity Reaction Status Date / Time No Known Allergies Allergy Verified 10/07/18 16:41 Date of admission: 10/31/18 20:52 Primary care physician: PCP [place] Consults: 10/31/18 20:59 Consult to Hose Mender [CONS] Routine Reason for Consult: Please assess patient for possible home needs for postdischarge planning, especially regarding rehabilitation following surgical intervention for left hip fracture. PLEASE DISCUSS POA PAPERWORK WITH PTS. . 10/31/18 21:19 Consult to Orthopedic Surgery [CONS] Routine Consulting Provider: [facility] Reason for Consult: Pt. fell and sustained fx of left femur neck. Echocardiogram ordered for surgical clearance d/t pts. hx of CHF. Pt. is slightly altered and unsure if he hit his head when he fell, so CT of the head ordered. Will do MRI if CT results warrant. Spoke w/Dr. Newell regarding pt. and plan is to do surgical intervention tomorrow. Call Completed: Yes 11/01/18 08:50 Consult to Palliative Care [CONS] Routine Comment: Consulting Provider: Palliative Care Yany Reason for Consult: goals of care Call Completed: Yes 11/01/18 12:38 Consult to Pulmonology [CONS] Routine Consulting Provider: Pulm [facility] Yany Reason for Consult: COPD, for OR today most likely will be a difficult extubation annalisa has long standing COPD with multiple comorbidities . Call Completed: Yes 11/01/18 20:29 Consult to Occupational Therapy [CONS] Routine Comment: Evaluate, develop and implement POC Reason for Consult: post hip surgery Does patient have active BEDREST order?: No Is patient medically & hemodynamically stable?: Yes Consult to Physical Therapy [CONS] Routine Comment: Evaluate, develop and implement POC Reason for Consult: post hip surgery Does patient have active BEDREST order?: No Is patient medically & hemodynamically stable?: Yes 11/02/18 07:01 Consult to Case Management [CONS] Routine Comment: Consult to Physical Therapy [CONS] Routine Comment: Evaluate, develop and implement POC Reason for Consult: dispostion Does patient have active BEDREST order?: No Is patient medically & hemodynamically stable?: Yes Patient assessed for mobility or mobilized this visit?: Yes OT [Consult to Occupational Therapy] [CONS] Routine Comment: Evaluate, develop and implement POC Reason for Consult: disposition Does patient have active BEDREST order?: No Is patient medically & hemodynamically stable?: Yes Patient assessed for mobility or mobilized this visit?: Yes Discharging clinician: Gertrudis Kapoor Anticipated date of discharge: 11/04/18 - Constitutional Vitals: Temp Pulse Resp BP Pulse Ox 97.7 F 75 18 143/79 97 11/04/18 07:44 11/04/18 07:44 11/04/18 07:44 11/04/18 07:44 11/04/18 07:44 Exam: General: Patient is alert, oriented, no acute distress, obese, speaks in full sentences Head: atraumatic, normocephalic, Chest: normal inspection, symmetric chest rise, wearing home BiPAP Respiratory: Decreased breath sounds secondary to body habitus, no crackles, no wheezing in the anterior or lateral chest. Cardiovascular: Regular rate and rhythm. s1 and s2 No clicks, rubs, gallops, or murmors. Abdomen: Abdomen is soft, nondistended. no epigastric tenderness. No guarding or rebound. Musculoskeletal: Spontaneously moving all extremities. ROM reduced and the left hip secondary to fracture, left hip incision site under bandage, clean, dry, without evidence of hematoma, no tenderness Neuro: Alert and oriented, agrees with plan to transfer to [place]. - Patient Status Disposition: Transfer Other Condition: Good - Discharge Instructions Follow [facility] With: [facility] [Primary Care Provider] - Additional Instructions: HALFWAY DISCHARGE INSTRUCTIONS Dr. Newell PROCEDURE PERFORMED Reduction and fixation of left hip. Incision care -Daily dressing changes to the left hip with dry gauze and either paper tape or medipore tape. -Avoid soaking wound in water (no hot tubs, bathtubs, swimming pools). -May shower after 2 weeks from surgery date. Carefully wash incision with soap and water. Gently pat it dry. Don't rub the incision, or apply creams or lotions. Sit on a shower stool when showering to keep from falling. Weight bearing status -Weightbearing as tolerated to the bilateral lower extremities. Medications -Pain medication per the discharging medical doctor -Enteric coated aspirin 325 mg by mouth twice per day for 28 days from the date of the surgery. Other -Knee high ELIZABETH hose 23 hours per day -Consult physical and occupational therapy for mobilization. -Up to chair with assistance at least twice per day. -Follow up with your primary care physician to discuss testing for bone mineral density. Follow-up with Dr. Newell at the office 2 weeks from the surgery date for a post operative evaluation. Call the office at [phone] to schedule appointment. - Diet and Activity Activity: other (see Orthopedics instructions) Diet: advance to your usual diet, diabetic diet, low fat, low cholesterol
[2018-11-04] MEDS: Budesonide/Formoterol 80/4.5 MDI IH SCH (10:36)
[2018-11-04 14:00] LABS: HCV Quant Interpretation NOT DETECTED (Not Detected)
== END 2018-11-04 11:04 | disposition other institution (70) | DRG 480 ==
LOC: 3NENU
PROVIDERS: ADMIT Student in an Organized Health Care Education/Training Program; ATTEND Student in an Organized Health Care Education/Training Program

== ENCOUNTER 2019-03-06 21:55 | Inpatient (IN) ==
--- NOTE | 2019-03-07 00:23 | Internal Med History&Physical ---
<Radha Gonzalez - Last Filed: 03/07/19 03:33> Date of Encounter: 03/07/19 Time of Encounter: 01:00 Internal Medicine - H&P: HPI Chief complaint: AMS Admitted From: Emergency Dept History of present illness: Mr. Thompson is a 63 year old male with medical history of COPD, diabetes, CAD/NM, CHF, seizure, cirrhosis, HCV, HTN, HLD, GERD, anxiety, depression. Denies history of stroke. Denies blood thinner other than ASA. Takes Percocet for back pain. Denies benzos. Patient presents for confusion. There is no one in room with patient and history is gathered from previous documentation and from patient. Documentation states that noticed patient acting confused 3 days ago, such as seeing pets in the house that werent there. Also reports slurred speech and right facial droop. Patient fell a few days ago but did not hit his head. Patient states hes not confused. States he was messing with his about seeing animals in the house because she was cranky and he wanted to lighten her mood. He states he notices no difficulty with speech or a facial droop. Patient states that hes been completely normal, but people treat him like theres something wrong with him. Admits constipation for 4 days. Denies chest pain, shortness of breath, numbness/tingling, focal weakness, dysphagia, confusion, hallucinations, facial droop, difficulty with speech, dysphagia, abdominal pain, nausea/vomiting, urinary changes. Patient states he doesnt know how he got bruise on left arm. When asked if it was from a fall, patient states yes, his walker got twisted and he fell backward. States he did not hit his head. Past Med Surg Social Fam HX - Past Medical History Medical history: cirrhosis, CHF, COPD, coronary artery disease, diabetes, hepat itis, hyperlipidemia, hypertension, liver disease, myocardial infarction, other Additional medical history: chronic back pain, hepatitis C Psychiatric history: anxiety, depression - Past Surgical History Surgical History: cholecystectomy, orthopedic, other Additional surgical history: stent in gallbladder/liver stent, hemerrhoid surgery - Social History Smoking Status: Former smoker Smokeless Tobacco Status: No Alcohol use: none Drug use: none - Family History Father Family Member Ethnicity: Non- Living Status: Still Living Hx Family Cardiac Disorders: Yes (NM, CABG) Hx Family Endocrine Disorder: Yes (DM) Mother Family Member Ethnicity: Non- Living Status: Still Living Hx Family Endocrine Disorder: Yes (DM) Internal Medicine - H&P: Meds RX: Cholecalciferol (Vitamin D3) [Vitamin D3] 2,000 unit PO BID 03/15/16 [History] RX: Magnesium 400 mg PO BID 03/15/16 [History] RX: Budesonide/Formoterol 80/4.5 [Symbicort 80/4.5] 2 puff IH BIDR #2 inhaler 03/17/16 [Rx] RX: Cyanocobalamin (Vitamin B-12) [Vitamin B12] 1,000 mcg PO BID 04/03/17 [History] RX: Aspirin 81 mg PO DAILY tab.chew 09/05/17 [Rx] RX: Oxycodone HCl [Oxaydo] 10 mg PO Q6H 02/24/18 [History] RX: Insulin ASPART [Novolog Flexpen] 5 - 10 unit SQ TIDWM 08/09/18 [History] RX: Insulin DETEMIR [Levemir] 30 unit SQ BID 08/09/18 [History] RX: Lactulose 10 gm PO Q8HR 08/09/18 [History] RX: Potassium Chloride [K-Tab ER] 20 meq PO DAILY 08/09/18 [History] RX: Sertraline [Zoloft] 50 mg PO DAILY 08/09/18 [History] RX: hydrOXYzine HCl [Hydroxyzine HCl] 25 mg PO HS PRN 08/09/18 [History] RX: Sennosides/Docusate Sodium [Senna-Docusate Sodium Tablet] 1 tab PO HS 10/07/18 [History] RX: Zinc [Zinc Chelated] 50 mg PO BID 10/07/18 [History] Atorvastatin Calcium [Lipitor] 80 mg PO HS 03/06/19 [History] Cetirizine HCl [Zyrtec] 10 mg PO DAILY 03/06/19 [History] Ipratropium/Albuterol Sulfate [Combivent Respimat Inhal [place]] 1 puff IH Q6H [History] Losartan [Cozaar] 25 mg PO DAILY 03/06/19 [History] Memantine [Namenda] 10 mg PO BID 03/06/19 [History] Montelukast [Singulair] 10 mg PO DAILY 03/06/19 [History] RX: Furosemide [Lasix] 40 mg PO DAILY 03/06/19 [History] RX: Omeprazole 20 mg PO DAILY 03/06/19 [History] levETIRAcetam [Keppra] 250 mg PO BID 03/06/19 [History] Allergy/AdvReac Type Severity Reaction Status Date / Time No Known Allergies Allergy Verified 10/07/18 16:41 All Systems PM: A 10-system review of systems was performed and is negative for pertinent findings except as documented above in the HPI. - Constitutional Constitutional: no anorexia, no chills - EENT Eyes: no change in vision Nose, mouth and throat: no dysphagia - Cardiovascular Cardiovascular ROS IM: no chest pain - Respiratory Respiratory: no dyspnea - Gastrointestinal Gastrointestinal: no abdominal pain - Genitourinary Genitourinary ROS male: no dysuria - Musculoskeletal Musculoskeletal ROS IM: no arthralgias - Integumentary Integumentary IM: no erythema, no rash - Neurological Neurological ROS: no focal weakness - Psychiatric Psychiatric: no hallucinations - Endocrine Endocrine IM: no cold intolerance - Hematologic/Lymphatic Hematologic/Lymphatic: no easy bleeding, no lymphadenopathy - Allergic/Immunologic Allergic/Immunologic: no itchy eyes, no uticaria - Constitutional Vitals: Temp Pulse Resp BP Pulse Ox 97.9 F 70 14 154/80 98 03/06/19 23:39 03/06/19 23:39 03/06/19 23:39 03/06/19 23:39 03/06/19 23:39 General appearance: Present: cooperative, obese Exam: no acute distress - Head Head exam: Present: atraumatic, normal inspection, normocephalic - Eye Eye exam: Present: EOMI, normal appearance, PERRL, sclera anicteric - ENT ENT exam: Present: mucous membranes dry, normal oropharynx - Neck Neck exam general surgery: Present: normal inspection - Respiratory Respiratory exam: Present: CTAB. Absent: respiratory distress, tachypnea - Cardiovascular Cardiovascular exam: Present: RRR, +S1, +S2. Absent: systolic murmur, tachycardia - GI/Abdominal GI/Abdominal exam: Present: normal bowel sounds, soft, no peritoneal signs. Absent: tenderness - Extremities Exam Extremities exam: Present: normal inspection, warm. Absent: cyanotic, pedal edema, tenderness - Neurological Exam Neurological exam: Present: alert, altered, strengths equal and symetr throughout, facial droop, speech deficit (speech is difficult to understand, but unknown if this is baseline). Absent: CN II-XII intact (right facial weakness ), motor sensory deficit, oriented X3 (not oriented to place or time ), pronater drift Additional comments: finger to nose test normal bilaterally - Psychiatric Psychiatric exam: Present: normal affect, normal mood - Skin Skin exam: Present: dry, intact, normal color, warm Additional comments: ecchymosis with abrasion on left forearm Internal Med - H&P Results - Labs CBC & Chem 7: 03/07/19 01:43 - Assessment and Plan (1) Altered mental status Current Visit: No Status: Acute Assessment and plan: Confusion for 3 days Differential: stroke, hepatic encephalopathy, medication/substance abuse, hypercapnia Bicarb is elevated >45. Baseline 40s Ammonia is elevated at 64 Urine drug screen was positive for opiates and benzos. Patient denies benzo use CXR was negative CT head was negative Echo 10/31/18 showed LVEF 70% with normal LV and RV function Carotid duplex 2017 showed left ICA severe stenosis 60-79% Start lactulose Check ABG Check echo Check carotid duplex Check MRI head Qualifiers: Altered mental status type: disorientation Qualified Code(s): R41.0 - Disorientation, unspecified (2) Cirrhosis Current Visit: No Status: Chronic Assessment and plan: History of cirrhosis and HCV Lactulose Qualifiers: Hepatic cirrhosis type: other cirrhosis Qualified Code(s): K74.69 - Other cirrhosis of liver (3) COPD (chronic obstructive pulmonary disease) Current Visit: No Status: Chronic Assessment and plan: History of COPD on 4L home oxygen Qualifiers: COPD type: COPD with acute exacerbation Qualified Code(s): J44.1 - Chronic obstructive pulmonary disease with (acute) exacerbation (4) Diabetes mellitus, type II Current Visit: No Status: Chronic Assessment and plan: History of diabetes SSI Qualifiers: Diabetes mellitus terminal make up operator insulin use: with care home use Diabetes mellitus complication status: with circulatory complication Diabetes mellitus complication detail: with other circulatory complications Qualified Code(s): E11.59 - Type 2 diabetes mellitus with other circulatory complications; Z79.4 - terminal gauger supervisor (current) use of insulin; Z79.4 - care home (current) use of insulin; Z79.4 - care home (current) use of insulin; Z79.4 - terminal gauger supervisor (current) use of insulin (5) Seizure disorder Current Visit: No Status: Chronic Assessment and plan: History of seizure Resume home med when confirmed (6) DVT prophylaxis Current Visit: No Status: Acute Assessment and plan: Heparin SQ - Time Spent With Patient Total time spent is greater than 50% in coordination of care (as documented) at patient's floor/unit and/or counseling patient: <ConnorValdemar - Last Filed: 03/07/19 05:47> Date of Encounter: 03/07/19 All Systems PM: A 10-system review of systems was performed and is negative for pertinent findings except as documented above in the HPI. - Constitutional Vitals: Temp Pulse Resp BP Pulse Ox 97.9 F 70 14 154/80 98 03/06/19 23:39 03/06/19 23:39 03/06/19 23:39 03/06/19 23:39 03/06/19 23:39 Internal Med - H&P Results - Labs CBC & Chem 7: 03/07/19 01:43 03/07/19 01:43 - Time Spent With Patient Total time spent is greater than 50% in coordination of care (as documented) at patient's floor/unit and/or counseling patient: - Attending Attestation I performed a history and physical exam of the patient and discussed management with the resident. I reviewed the resident's note and agree with the documented findings and plan of care. Bhavesh Thompson is a 63 year old man with multiple comorbidities as referenced above who was taken to [facility] by his with the report of confusion and questionable facial droop prompting evaluation for a stroke prior to his transfer here for further care. He was reluctant to seek care and even here tells me he does not know why he is here and that his worries too much. He denies any complaints. He is notably confused stating that he went to the hospital for a meeting and then found himself here. He acknowledges suffering a fall a few days ago and causing a large bruise on his left arm and lower back. Physical exam remarkable for equal strength in extremities. Possible right facial weakness seen however it is confounded with the presence of his thick forde and him saying his face has always been like that. Unfortunately his is not present to corroborate. Will admit for observation. Check an ABG to ensure CO2 retention is not playing a role. Check serum ammonia. Continue supplemental oxygen as needed. Will schedule for CTA head/neck or brain MRI in the morning. Will require discussion with his in the morning to obtain more information. TAYLOR HIGH.
[2019-03-07] MEDS ORDERED: D5% in Water 1,000 ML IVC PRN (00:49)
[2019-03-07] MEDS ORDERED: *HR* Dextrose 50 % in Water (Syg) 50 ML SYRINGE IVP PRN (00:49)
[2019-03-07] MEDS ORDERED: Dextrose Gel 15 GM/37.5 ML TUBE PO PRN ×2 (00:49)
[2019-03-07] MEDS: Insulin LISPRO 300 UNITS/3 ML VIAL SQ SCH ×5 (01:12→21:28)
[2019-03-07] MEDS ORDERED: Naloxone 0.4 MG/ML INJ IVP PRN (01:20)
[2019-03-07] MEDS ORDERED: traMADol 50 MG TABLET PO ONE (01:22)
[2019-03-07] MEDS: Lactulose Oral Soln 20 GM/30 ML UDC PO SCH ×4 (02:55→22:37)
[2019-03-07 03:12] LABS: Hemoglobin 9.3 g/dL (12.9-16.9); Immature Granulocytes % 0.2 % (0-4); Red Cell Distribution Width 14.1 % (11.5-14.5)
[2019-03-07 03:13] LABS: Lymphocytes % 26.9 %; Mean Corpuscular HGB Conc 28.2 g/dL (31.6-35.5); Mean Corpuscular Hemoglobin 25.7 pg (28.0-33.3); Mean Corpuscular Volume 91.2 fL (83.0-100.0); Mean Platelet Volume 10.5 fL (9.4-12.4); Monocytes % 8.8 %; Platelet Count 153 K/mcL (140-400); Red Blood Count 3.62 M/mcL (4.19-5.50); Segmented Neutrophils % 58.4 %
[2019-03-07 03:14] LABS: Basophils % 0.5 %; Eosinophils # 0.2 K/mcL (0.0-0.6); Eosinophils % 5.2 %; Lymphocytes # 1.2 K/mcL (0.6-4.6); Monocytes # 0.4 K/mcL (0.0-1.3); Neutrophils # 2.6 K/mcL (1.6-8.9)
[2019-03-07 03:22] LABS: ABG Base Excess 21 mEq/L (-2 to 3); ABG HCO3 51 mEq/L (21-27); ABG Oxygen Saturation 97 % (95-98); ABG PCO2 97 mmHg (35-45); ABG PH 7.33 pH Units (7.32-7.45); ABG PO2 107 mmHg (85-104); ABG TCO2 > 50 mEq/L (20-26)
[2019-03-07 03:39] LABS: BUN/Creatinine Ratio 15 (6-26); Blood Urea Nitrogen 13 mg/dL (8-23); Carbon Dioxide > 45 mEq/L (23-29); Chloride 91 mEq/L (98-107); Glucose 107 mg/dL (70-105); Osmolality,Calculated 295 (280-300); Potassium 3.8 mEq/L (3.5-5.1); Sodium 142 mEq/L (136-145); eGFR For Non-African Americans > 60 (> 60)
[2019-03-07 03:52] LABS: Estimated Average Glucose 166 mg/dl; Hemoglobin A1C 7.4 %
[2019-03-07 03:56] LABS: Platelet Estimate Normal (Normal)
[2019-03-07] MEDS ORDERED: Acetaminophen 325 MG TABLET PO PRN (04:32)
[2019-03-07] MEDS: *HR* Heparin 5,000 UNIT/ML VIAL SQ SCH ×2 (04:47→18:20)
[2019-03-07] MEDS: *HR* HYDROcodone/Acet 5/325 mg TABLET PO PRN ×3 (05:57→22:38)
[2019-03-07] MEDS ORDERED: Lactulose Oral Soln 20 GM/30 ML UDC PO SCH (09:00)
[2019-03-07] MEDS ORDERED: OXYCODONE HCL 10 MG PO PRN (10:06)
[2019-03-07] MEDS ORDERED: *HR* OxyCODONE Immed Rel 5 MG TABLET PO PRN (10:29)
[2019-03-07 14:13] LABS: ABG Base Excess 19 mEq/L (-2 to 3); ABG HCO3 50 mEq/L (21-27); ABG Oxygen Saturation 96 % (95-98); ABG PCO2 105 mmHg (35-45); ABG PH 7.29 pH Units (7.32-7.45); ABG PO2 101 mmHg (85-104); ABG TCO2 > 50 mEq/L (20-26)
[2019-03-07] MEDS ORDERED: Sennosides/Docusate Sodium TABLET PO PRN (14:22)
--- NOTE | 2019-03-07 14:44 | Internal Med Progress Note ---
Hospitalist Progress Note - Encounter Date of Encounter: 03/07/19 Time of Encounter: 14:44 - Subjective Interval History: Mr. Thompson is a 63 year old male with medical history of COPD, chronic hypoxic and hypercapneic resp failure, diabetes, CAD/[place], diastolic CHF, seizure, cirrhosis, HCV, HTN, HLD, GERD, anxiety and depression pt was brought into ER with confusion and AMS. He does have acute on hyper capneic resp failure with Ph 7.33, PCo2 97. Pt was seen and examined at bed side. He still looks very connfused and altered. He seems to be non compliance with his BiPAP at home. Counseled about it. Placed him on continuous BiPAP now here. - Exam Vitals: Temp Pulse Resp BP Pulse Ox 98.2 F 67 12 128/79 90 03/07/19 11:19 03/07/19 11:19 03/07/19 14:09 03/07/19 11:19 03/07/19 14:09 Exam: Gen: Alert, awake, Oriented to time,place and person.. Looks confused and disoriented Chest: Diminished breath sounds B/L, moderate wheezing, No crackles, No rales Heart: S1S2+ RRR No murmurs Abd: Soft, NT, BS +, No organomegaly Ext: No edema, pulses are palpable, No calf tenderness Neuro : Benign findings Skin: No rash. - Assessment and Plan (1) Acute and chronic respiratory failure with hypercapnia Current Visit: No Status: Acute Assessment and Plan: Repeat ABG now showed worsening hypercapnea with PCo2 105 Placed him on continuous BiPAP now repeat ABG in 6 hrs counseled the pt about being compliance with BiPAP (2) Acute exacerbation of chronic obstructive airways disease Current Visit: No Status: Acute Assessment and Plan: Moderate wheezing No signs of infection started him low dose IV steroids Frequent bronchodilators therapy continue on oxygen (3) Acute respiratory acidosis Current Visit: No Status: Acute (4) Altered mental status Current Visit: No Status: Acute Assessment and Plan: Mostly due to hypercapnia respiratory failure however need to rule out CVA will follow-up on Brain MRI fall precautions (5) Seizure disorder Current Visit: No Status: Chronic Assessment and Plan: Resumed home medications (6) Anxiety and depression Current Visit: No Status: Chronic Assessment and Plan: Resumed home medications (7) CHF (congestive heart failure) Current Visit: No Status: Chronic Assessment and Plan: Not in exacerbation resumed home medications (8) Chronic narcotic dependence Current Visit: Yes Status: Chronic Assessment and Plan: Continue home medication at low-dose - Time Spent with Patient Total time spent is greater than 50% in coordination of care (as documented) at patient's floor/unit and/or counseling patient: Internal Medicine: Result - Labs CBC & Chem 7: 03/07/19 01:43 03/07/19 01:43 Labs: Short CBC 03/07/19 Range/Units 01:43 WBC 4.4 (4.3-11.1) K/mcL Hgb 9.3 L (12.9-16.9) g/dL Hct 33.0 L (37.5-50.1) % Plt Count 153 (140-400) K/mcL Neutrophils # 2.6 (1.6-8.9) K/mcL BMP 03/07/19 01:43 Sodium 142 Potassium 3.8 Chloride 91 L Carbon Dioxide > 45 H* BUN 13 Creatinine 0.86 Glucose 107 H Calcium 9.0 - ABG Interpretation ABG results: ABG ABG pH 7.29 pH Units (7.32-7.45) L 03/07/19 13:56 ABG pCO2 105 mmHg (35-45) H* 03/07/19 13:56 ABG pO2 101 mmHg (85-104) 03/07/19 13:56 ABG O2 Saturation 96 % (95-98) 03/07/19 13:56 - Impressions Impressions Echocardiogram Limited Views 03/07/19 00:48 Impressions: LVEF 65-70%. Normal LV chamber size, wall thickness and systolic function. No evidence of PFO with agitated saline contrast. Left Ventricular Wall Motion: Rest Echo Findings All wall segments showed normal motion. Findings: Study Quality * Technically adequate exam. ECG Findings * Normal sinus rhythm. Left Ventricle * LVEF 65-70%. * Normal LV chamber size, wall thickness and systolic function. Interatrial Septum * No evidence of PFO with agitated saline contrast. Consult Discharge Plan - Plan [facility]errals: [facility] [Primary Care Provider] - (4) Altered mental status Qualifiers: Altered mental status type: disorientation Qualified Code(s): R41.0 - Disorientation, unspecified (7) CHF (congestive heart failure) Qualifiers: Heart failure type: diastolic Heart failure chronicity: chronic Qualified Code(s): I50.32 - Chronic diastolic (congestive) heart failure
[2019-03-07] MEDS: Budesonide/Formoterol 160/4.5 1 PUFF INH IH SCH ×2 (15:25→22:14)
[2019-03-07] MEDS: MethylPREDNISolone 40 MG/ML VIAL IVP SCH (15:30)
[2019-03-07] MEDS: Furosemide 20 MG TABLET PO SCH (15:30)
[2019-03-07] MEDS: levETIRAcetam 250 MG TABLET PO SCH (15:30)
[2019-03-07] MEDS: Aspirin 81 MG TAB.CHEW PO SCH (15:30)
[2019-03-07] MEDS: Insulin DETEMIR 100 UNIT/ML X5UNITS SQ SCH (21:26)
[2019-03-07] MEDS: (Zinc [Zinc Chelated] 50 MG) PO SCH (21:39)
[2019-03-07 22:02] LABS: ABG Base Excess 19 mEq/L (-2 to 3); ABG HCO3 50 mEq/L (21-27); ABG Oxygen Saturation 93 % (95-98); ABG PCO2 94 mmHg (35-45); ABG PH 7.33 pH Units (7.32-7.45); ABG PO2 78 mmHg (85-104); ABG TCO2 > 50 mEq/L (20-26); Blood Gas Modality NIV; Blood Gas PEEP 8 cm H2O; Blood Gas Pressure Support 14 cm H2O
[2019-03-07] MEDS: Magnesium Oxide 400 MG TABLET PO SCH (22:10)
[2019-03-07] MEDS: Cholecalciferol (D-3) 1,000 UNIT TABLET PO SCH (22:15)
[2019-03-07 22:18] LABS: ABG Base Excess 20 mEq/L (-2 to 3); ABG HCO3 50 mEq/L (21-27); ABG Oxygen Saturation 93 % (95-98); ABG PCO2 89 mmHg (35-45); ABG PH 7.36 pH Units (7.32-7.45); ABG PO2 75 mmHg (85-104); ABG TCO2 > 50 mEq/L (20-26); Blood Gas Modality BiLevel; Blood Gas PEEP 8 cm H2O
[2019-03-07] MEDS ORDERED: *HR* LORazepam 2 MG/ML VIAL IVP ONE (22:29)
--- NOTE | 2019-03-07 22:57 | Event Note ---
Date of Encounter: 03/07/19 Time of Encounter: 20:27 Alerted by respiratory therapist JO Ang that the patient had a critical CO2 94, pH 7.33, PCO2 78, HCO3 50, and SPO2 93%. Patient has been on BiPAP since 19:20. Therapist stated patient did not want to keep BiPAP on. Settings changed to AVAPS. Notified at 20:38 that pt. was now asleep and nurse will let me know when he wakes. Alerted at 21:34 that pt. was not easily arousable. Stat ABG and ammonia level ordered d/t pts. hx of liver disease. Went to see pt. while ABG was being drawn. Pt. awake but not very responsive to questions. ABG showed CO2 of 89, which was improved from previous of 94 and prior of 105 today. Ammonia 76. Alerted at 22:13 that the pt. was now refusing his medications including lactulose and had taken off his BiPAP. Went to see pt. immediately who was resting in bed. Pt. more alert and able to answer my questions. I informed the pt. that his CO2 was high and if he didn't keep the BiPAP on he ran the risk of needing intubation. I also educated the pt. on the need for his lactulose. I gave him the choice of oral or rectal lactulose. The pt. chose oral. One-time order of 0.5 mg IVP Ativan ordered to help pt. tolerate BiPAP. Pt. assured me he would wear the BiPAP. Sitter ordered. Pt. instructed to have nurse page me if he had any questions or concerns. Nurse instructed to continue monitoring the pt. very closely and alert me immediately of any adverse changes.
[2019-03-08] MEDS: MethylPREDNISolone 40 MG/ML VIAL IVP SCH ×4 (01:17→23:36)
[2019-03-08] MEDS: *HR* OxyCODONE Immed Rel 5 MG TABLET PO PRN ×2 (01:25→08:18)
[2019-03-08] MEDS: levETIRAcetam 250 MG TABLET PO SCH ×2 (01:26→14:02)
[2019-03-08 04:22] LABS: Hematocrit 34.1 % (37.5-50.1); Mean Corpuscular HGB Conc 29.3 g/dL (31.6-35.5); Mean Corpuscular Hemoglobin 25.6 pg (28.0-33.3); Mean Corpuscular Volume 87.4 fL (83.0-100.0); Mean Platelet Volume 10.2 fL (9.4-12.4); Platelet Count 171 K/mcL (140-400); Red Cell Distribution Width 13.9 % (11.5-14.5)
[2019-03-08 04:46] LABS: ABG Base Excess 18 mEq/L (-2 to 3); ABG HCO3 47 mEq/L (21-27); ABG Oxygen Saturation 92 % (95-98); ABG PCO2 84 mmHg (35-45); ABG PH 7.36 pH Units (7.32-7.45); ABG PO2 71 mmHg (85-104); ABG TCO2 50 mEq/L (20-26); Blood Gas Modality AVAPS; Blood Gas Respiration Rate 8; Blood Gas VT 480 cc
[2019-03-08 04:49] LABS: Alanine Aminotransferase 9 Units/L (7-52); Albumin 3.6 g/dL (3.5-5.7); Alkaline Phosphatase 95 Units/L (34-104); Aspartate Amino Transferase 16 Units/L (13-39); BUN/Creatinine Ratio 20 (6-26); Bilirubin,Total 0.4 mg/dL (0.3-1.0); Blood Urea Nitrogen 15 mg/dL (8-23); Calcium 9.3 mg/dL (8.6-10.3); Carbon Dioxide 44 mEq/L (23-29); Chloride 93 mEq/L (98-107); Globulin 3.5 g/dL (2.4-3.5); Glucose 210 mg/dL (70-105); Magnesium 1.8 mg/dL (1.6-2.6); Osmolality,Calculated 299 (280-300); Potassium 4.2 mEq/L (3.5-5.1); Sodium 141 mEq/L (136-145); Total Protein 7.1 g/dL (6.4-8.9); eGFR For Non-African Americans > 60 (> 60)
[2019-03-08] MEDS: *HR* Heparin 5,000 UNIT/ML VIAL SQ SCH ×2 (05:54→17:27)
[2019-03-08] MEDS: Budesonide/Formoterol 160/4.5 1 PUFF INH IH SCH ×2 (08:13→22:14)
[2019-03-08] MEDS: Insulin LISPRO 300 UNITS/3 ML VIAL SQ SCH ×4 (08:36→19:45)
[2019-03-08] MEDS: Cholecalciferol (D-3) 1,000 UNIT TABLET PO SCH (10:02)
[2019-03-08] MEDS: Cyanocobalamin (B-12) 1,000 MCG TABLET PO SCH (10:02)
[2019-03-08] MEDS: Magnesium Oxide 400 MG TABLET PO SCH ×2 (10:05→23:26)
[2019-03-08] MEDS: Insulin DETEMIR 100 UNIT/ML X5UNITS SQ SCH ×2 (10:05→23:26)
[2019-03-08] MEDS: Furosemide 20 MG TABLET PO SCH (10:05)
[2019-03-08] MEDS: Lactulose Oral Soln 20 GM/30 ML UDC PO SCH ×3 (10:06→19:43)
[2019-03-08] MEDS: (Zinc [Zinc Chelated] 50 MG) PO SCH ×2 (10:07→19:45)
[2019-03-08] MEDS: Aspirin 81 MG TAB.CHEW PO SCH (10:07)
--- NOTE | 2019-03-08 13:38 | Internal Med Progress Note ---
Hospitalist Progress Note - Encounter Date of Encounter: 03/08/19 Time of Encounter: 11:30 - Subjective Interval History: Mr. Thompson is a 63 year old male with medical history of COPD, chronic hypoxic and hypercapneic resp failure, diabetes, CAD/[place], diastolic CHF, seizure, cirrhosis, HCV, HTN, HLD, GERD, anxiety and depression pt was brought into ER with confusion and AMS. He does have acute on hyper capneic resp failure with Ph 7.33, PCo2 97. He seems to be non compliance with his BiPAP at home. Counseled about it. Pt was seen and examined at bed side. He did wear BiPAP most of the time y/d and last night. His PCo2 came down to 84, however he still looks very confused, sleepy and altered today. Will cont him on continuous BiPAP - Exam Vitals: Temp Pulse Resp BP Pulse Ox 98.4 F 67 16 123/75 92 03/08/19 11:10 03/08/19 11:10 03/08/19 11:10 03/08/19 11:10 03/08/19 11:10 Exam: Gen: Sleepy and sedative.. Looks confused and disoriented Chest: Diminished breath sounds B/L, moderate wheezing, No crackles, No rales Heart: S1S2+ RRR No murmurs Abd: Soft, NT, BS +, No organomegaly Ext: No edema, pulses are palpable, No calf tenderness Neuro : Unable to assess Skin: No rash. - Assessment and Plan (1) Acute and chronic respiratory failure with hypercapnia Current Visit: No Status: Acute Assessment and Plan: Reviewed ABG from this morning.. Ph: 7.36, P Co2- 84 Cont him on BiPAP for now repeat ABG in AM counseled the pt about being compliance with BiPAP (2) Acute exacerbation of chronic obstructive airways disease Current Visit: No Status: Acute Assessment and Plan: Moderate wheezing No signs of infection Cont him on IV steroids Solumedrol 40mg Q8Hr Frequent bronchodilators therapy continue on oxygen (3) Acute respiratory acidosis Current Visit: No Status: Acute (4) Altered mental status Current Visit: No Status: Acute Assessment and Plan: Mostly due to hypercapnia respiratory failure and hepatic encephalopathy Brain MRI is negative for Ischemia fall precautions (5) Hepatic encephalopathy Current Visit: Yes Status: Acute Assessment and Plan: Due to cirrhosis of liver Ammonia little better today However since pt still sleepy, inc Lactulose to 20mg TID (6) Seizure disorder Current Visit: No Status: Chronic Assessment and Plan: Resumed home medications (7) Anxiety and depression Current Visit: No Status: Chronic Assessment and Plan: Resumed home medications (8) CHF (congestive heart failure) Current Visit: No Status: Chronic Assessment and Plan: Not in exacerbation resumed home medications (9) Chronic narcotic dependence Current Visit: Yes Status: Chronic Assessment and Plan: Continue home medication at low-dose - Time Spent with Patient Total time spent is greater than 50% in coordination of care (as documented) at patient's floor/unit and/or counseling patient: Internal Medicine: Result - Labs CBC & Chem 7: 03/08/19 04:05 03/08/19 04:05 Labs: Short CBC 03/08/19 Range/Units 04:05 WBC 5.0 (4.3-11.1) K/mcL Hgb 10.0 L (12.9-16.9) g/dL Hct 34.1 L (37.5-50.1) % Plt Count 171 (140-400) K/mcL BMP 03/08/19 04:05 Sodium 141 Potassium 4.2 Chloride 93 L Carbon Dioxide 44 H* BUN 15 Creatinine 0.76 Glucose 210 H Calcium 9.3 Liver Function 03/08/19 Range/Units 04:05 Total Bilirubin 0.4 (0.3-1.0) mg/dL AST 16 (13-39) Units/L ALT 9 (7-52) Units/L Alkaline Phosphatase 95 (34-104) Units/L Albumin 3.6 (3.5-5.7) g/dL - ABG Interpretation ABG results: ABG ABG pH 7.36 pH Units (7.32-7.45) 03/08/19 04:36 ABG pCO2 84 mmHg (35-45) H* 03/08/19 04:36 ABG pO2 71 mmHg (85-104) L 03/08/19 04:36 ABG O2 Saturation 92 % (95-98) L 03/08/19 04:36 - Impressions Impressions Brain MRI 03/07/19 01:26 IMPRESSION: No evidence of acute intracranial abnormality or acute ischemia. Stable mild encephalomalacia involving the anterior portion of both frontal lobes. These changes are likely secondary to old trauma. D/ / 03/07/2019 15:50:09 Sebastien Campbell MD / essence Interpreting Provider: Sebastien Campbell MD Consult Discharge Plan - Plan Referrals: [facility] [Primary Care Provider] - (4) Altered mental status Qualifiers: Altered mental status type: disorientation Qualified Code(s): R41.0 - Disorientation, unspecified (8) CHF (congestive heart failure) Qualifiers: Heart failure type: diastolic Heart failure chronicity: chronic Qualified Code(s): I50.32 - Chronic diastolic (congestive) heart failure
[2019-03-08] MEDS ORDERED: *HR* OxyCODONE ER (12 HR) 10 MG TABLET PO PRN (20:28)
[2019-03-09] MEDS: levETIRAcetam 250 MG TABLET PO SCH ×2 (00:28→13:40)
[2019-03-09] MEDS: *HR* OxyCODONE ER (12 HR) 10 MG TABLET PO PRN ×2 (00:29→13:46)
[2019-03-09] MEDS: *HR* Heparin 5,000 UNIT/ML VIAL SQ SCH ×2 (05:30→17:09)
[2019-03-09 06:14] LABS: BUN/Creatinine Ratio 23 (6-26); Blood Urea Nitrogen 20 mg/dL (8-23); Calcium 9.4 mg/dL (8.6-10.3); Carbon Dioxide 45 mEq/L (23-29); Chloride 95 mEq/L (98-107); Glucose 166 mg/dL (70-105); Osmolality,Calculated 304 (280-300); Potassium 3.4 mEq/L (3.5-5.1); Sodium 144 mEq/L (136-145); eGFR For Non-African Americans > 60 (> 60)
[2019-03-09] MEDS: Insulin LISPRO 300 UNITS/3 ML VIAL SQ SCH ×4 (08:37→21:18)
[2019-03-09] MEDS: MethylPREDNISolone 40 MG/ML VIAL IVP SCH ×3 (08:38→21:24)
[2019-03-09] MEDS: Lactulose Oral Soln 20 GM/30 ML UDC PO SCH ×4 (08:38→21:14)
[2019-03-09] MEDS: Insulin DETEMIR 100 UNIT/ML X5UNITS SQ SCH ×3 (08:38→21:18)
[2019-03-09] MEDS: Aspirin 81 MG TAB.CHEW PO SCH ×2 (08:38→10:39)
[2019-03-09] MEDS: Furosemide 20 MG TABLET PO SCH (08:38)
[2019-03-09] MEDS: Magnesium Oxide 400 MG TABLET PO SCH ×3 (08:38→21:20)
[2019-03-09] MEDS: (Zinc [Zinc Chelated] 50 MG) PO SCH ×2 (08:39→21:04)
[2019-03-09] MEDS: Cholecalciferol (D-3) 1,000 UNIT TABLET PO SCH ×2 (08:42→10:39)
[2019-03-09] MEDS: Cyanocobalamin (B-12) 1,000 MCG TABLET PO SCH ×2 (08:42→10:39)
[2019-03-09] MEDS: Budesonide/Formoterol 160/4.5 1 PUFF INH IH SCH ×2 (10:37→21:02)
[2019-03-09] MEDS: *HR* HYDROcodone/Acet 5/325 mg TABLET PO PRN ×2 (10:38→18:10)
[2019-03-09 11:36] LABS: ABG Base Excess 22 mEq/L (-2 to 3); ABG HCO3 50 mEq/L (21-27); ABG Oxygen Saturation 96 % (95-98); ABG PCO2 73 mmHg (35-45); ABG PH 7.44 pH Units (7.32-7.45); ABG PO2 84 mmHg (85-104); ABG TCO2 > 50 mEq/L (20-26)
--- NOTE | 2019-03-09 13:51 | Internal Med Progress Note ---
Hospitalist Progress Note - Encounter Date of Encounter: 03/09/19 Time of Encounter: 13:00 - Subjective Interval History: Mr. Thompson is a 63 year old male with medical history of COPD, chronic hypoxic and hypercapneic resp failure, diabetes, CAD/[place], diastolic CHF, seizure, cirrhosis, HCV, HTN, HLD, GERD, anxiety and depression pt was brought into ER with confusion and AMS. He does have acute on hyper capneic resp failure with Ph 7.33, PCo2 97. He seems to be non compliance with his BiPAP at home. Counseled about it. Pt was seen and examined at bed side. He did wear BiPAP most of the time y/d and last night. His PCo2 came down to 73 now . He is more alert, awake and O x 3, however still very confused. He denied any CP. No events over night - Exam Vitals: Temp Pulse Resp BP Pulse Ox 97.8 F 68 14 141/77 96 03/09/19 10:49 03/09/19 10:49 03/09/19 10:49 03/09/19 10:49 03/09/19 10:49 Exam: Gen: A,A, O x3.. Looks confused and disoriented Chest: Diminished breath sounds B/L, moderate wheezing, No crackles, No rales Heart: S1S2+ RRR No murmurs Abd: Soft, NT, BS +, No organomegaly Ext: No edema, pulses are palpable, No calf tenderness Neuro : no focal neuro deficits..Altered mental status Skin: No rash. - Assessment and Plan (1) Acute and chronic respiratory failure with hypercapnia Current Visit: No Status: Acute Assessment and Plan: Reviewed ABG from this morning.. Ph: 7.44, P Co2- 73 seems to be at his baseline Cont him on BiPAP as needed during day time and continuous at night time counseled the pt about being compliance with BiPAP He may need to go to ECF for short term PT / OT will talk to CM / SW PT / OT eval (2) Acute exacerbation of chronic obstructive airways disease Current Visit: No Status: Acute Assessment and Plan: Moderate wheezing No signs of infection start tapering steroids Frequent bronchodilators therapy continue on oxygen (3) Acute respiratory acidosis Current Visit: No Status: Acute (4) Altered mental status Current Visit: No Status: Acute Assessment and Plan: Mostly due to hypercapnia respiratory failure and hepatic encephalopathy Brain MRI is negative for Ischemia fall precautions (5) Hepatic encephalopathy Current Visit: Yes Status: Acute Assessment and Plan: Due to cirrhosis of liver Ammonia little better today Cont Lactulose to 20mg TID (6) Seizure disorder Current Visit: No Status: Chronic Assessment and Plan: Resumed home medications (7) Anxiety and depression Current Visit: No Status: Chronic Assessment and Plan: Resumed home medications (8) CHF (congestive heart failure) Current Visit: No Status: Chronic Assessment and Plan: Not in exacerbation resumed home medications (9) Chronic narcotic dependence Current Visit: Yes Status: Chronic Assessment and Plan: Continue home medication at low-dose - Time Spent with Patient Total time spent is greater than 50% in coordination of care (as documented) at patient's floor/unit and/or counseling patient: Internal Medicine: Result - Labs CBC & Chem 7: 03/08/19 04:05 03/09/19 05:37 Labs: BMP 03/09/19 05:37 Sodium 144 Potassium 3.4 L Chloride 95 L Carbon Dioxide 45 H* BUN 20 Creatinine 0.87 Glucose 166 H Calcium 9.4 - ABG Interpretation ABG results: ABG ABG pH 7.44 pH Units (7.32-7.45) 03/09/19 11:32 ABG pCO2 73 mmHg (35-45) H* 03/09/19 11:32 ABG pO2 84 mmHg (85-104) L 03/09/19 11:32 ABG O2 Saturation 96 % (95-98) 03/09/19 11:32 Consult Discharge Plan - Plan Referrals: [facility] [Primary Care Provider] - (4) Altered mental status Qualifiers: Altered mental status type: disorientation Qualified Code(s): R41.0 - Disorientation, unspecified (8) CHF (congestive heart failure) Qualifiers: Heart failure type: diastolic Heart failure chronicity: chronic Qualified Code(s): I50.32 - Chronic diastolic (congestive) heart failure
[2019-03-10] MEDS: *HR* OxyCODONE ER (12 HR) 10 MG TABLET PO PRN ×2 (00:18→14:30)
[2019-03-10] MEDS: levETIRAcetam 250 MG TABLET PO SCH ×2 (00:18→14:30)
[2019-03-10] MEDS: *HR* Heparin 5,000 UNIT/ML VIAL SQ SCH ×2 (05:46→17:43)
[2019-03-10] MEDS: MethylPREDNISolone 40 MG/ML VIAL IVP SCH ×2 (05:46→17:43)
[2019-03-10] MEDS: *HR* HYDROcodone/Acet 5/325 mg TABLET PO PRN ×2 (06:23→17:49)
[2019-03-10 07:34] LABS: Alanine Aminotransferase 8 Units/L (7-52); Albumin 3.7 g/dL (3.5-5.7); Albumin/Globulin Ratio 1.3 (1.1-2.2); Alkaline Phosphatase 80 Units/L (34-104); Aspartate Amino Transferase 14 Units/L (13-39); BUN/Creatinine Ratio 24 (6-26); Bilirubin,Total 0.3 mg/dL (0.3-1.0); Blood Urea Nitrogen 21 mg/dL (8-23); Calcium 9.2 mg/dL (8.6-10.3); Carbon Dioxide 39 mEq/L (23-29); Chloride 96 mEq/L (98-107); Globulin 2.9 g/dL (2.4-3.5); Glucose 231 mg/dL (70-105); Osmolality,Calculated 304 (280-300); Potassium 3.8 mEq/L (3.5-5.1); Sodium 142 mEq/L (136-145); Total Protein 6.6 g/dL (6.4-8.9); eGFR For Non-African Americans > 60 (> 60)
[2019-03-10] MEDS: Budesonide/Formoterol 160/4.5 1 PUFF INH IH SCH ×2 (08:08→22:03)
[2019-03-10] MEDS: Furosemide 20 MG TABLET PO SCH (08:49)
[2019-03-10] MEDS: Cholecalciferol (D-3) 1,000 UNIT TABLET PO SCH (08:50)
[2019-03-10] MEDS: Cyanocobalamin (B-12) 1,000 MCG TABLET PO SCH (08:50)
[2019-03-10] MEDS: Lactulose Oral Soln 20 GM/30 ML UDC PO SCH ×3 (08:50→21:22)
[2019-03-10] MEDS: Aspirin 81 MG TAB.CHEW PO SCH (08:50)
[2019-03-10] MEDS: Magnesium Oxide 400 MG TABLET PO SCH ×2 (08:50→21:22)
[2019-03-10] MEDS: Insulin LISPRO 300 UNITS/3 ML VIAL SQ SCH ×4 (08:50→21:22)
[2019-03-10] MEDS: (Zinc [Zinc Chelated] 50 MG) PO SCH ×2 (08:51→21:23)
[2019-03-10] MEDS: Insulin DETEMIR 100 UNIT/ML X5UNITS SQ SCH ×2 (09:00→21:22)
[2019-03-10 09:16] LABS: Basophils % 0.2 %; Hematocrit 33.4 % (37.5-50.1); Hemoglobin 9.9 g/dL (12.9-16.9); Immature Granulocytes % 0.2 % (0-4); Lymphocytes # 0.8 K/mcL (0.6-4.6); Lymphocytes % 16.7 %; Mean Corpuscular HGB Conc 29.6 g/dL (31.6-35.5); Mean Corpuscular Hemoglobin 26.1 pg (28.0-33.3); Mean Corpuscular Volume 87.9 fL (83.0-100.0); Mean Platelet Volume 10.6 fL (9.4-12.4); Monocytes # 0.2 K/mcL (0.0-1.3); Monocytes % 3.8 %; Neutrophils # 3.7 K/mcL (1.6-8.9); Platelet Count 167 K/mcL (140-400); Red Cell Distribution Width 14.1 % (11.5-14.5); Segmented Neutrophils % 79.1 %
--- NOTE | 2019-03-10 11:51 | Internal Med Progress Note ---
Hospitalist Progress Note - Encounter Date of Encounter: 03/10/19 Time of Encounter: 11:49 - Subjective Interval History: Patient was seen and examined at bedside currently does not appear to be any respiratory distress he is on nasal cannula -he is alert and oriented to name and place following simple commands without difficulty discuss treatment plan patient verbalized understanding - Exam Vitals: Temp Pulse Resp BP Pulse Ox 97.6 F 52 14 167/80 95 03/10/19 07:02 03/10/19 07:02 03/10/19 08:08 03/10/19 07:02 03/10/19 08:08 Exam: Gen: A,A, O x3.. Looks confused and disoriented Chest: Diminished breath sounds B/L, moderate wheezing, No crackles, No rales Heart: S1S2+ RRR No murmurs Abd: Soft, NT, BS +, No organomegaly Ext: No edema, pulses are palpable, No calf tenderness Neuro : no focal neuro deficits..Altered mental status Skin: No rash. - Assessment and Plan (1) Acute exacerbation of chronic obstructive airways disease Current Visit: No Status: Acute Assessment and Plan: Lung sounds clear today No signs of infection Continue tapering steroids Frequent bronchodilators therapy continue on oxygen (2) Acute respiratory acidosis Current Visit: No Status: Acute Assessment and Plan: 1 patient has a history of respiratory failure hypercapnia-currently maintaining oxygen saturations on nasal cannula does not appear to be respiratory distress continue to monitor (3) Altered mental status Current Visit: No Status: Acute Assessment and Plan: Mostly due to hypercapnia respiratory failure and hepatic encephalopathy Brain MRI is negative for Ischemia fall precautions (4) Acute and chronic respiratory failure with hypercapnia Current Visit: No Status: Acute Assessment and Plan: Reviewed ABG from this morning.. Does not appear to be respiratory distress insular and appropriate Cont him on BiPAP as needed during day time and continuous at night time counseled the pt about being compliance with BiPAP He may need to go to ECF for short term PT / OT will talk to CM / SW PT / OT eval (5) Seizure disorder Current Visit: No Status: Chronic Assessment and Plan: Resumed home medications-no seizure activity noted (6) Anxiety and depression Current Visit: No Status: Chronic Assessment and Plan: Resumed home medications (7) CHF (congestive heart failure) Current Visit: No Status: Chronic Assessment and Plan: Not in exacerbation resumed home medications (8) Chronic narcotic dependence Current Visit: Yes Status: Chronic Assessment and Plan: Continue home medication at low-dose (9) Hepatic encephalopathy Current Visit: Yes Status: Acute Assessment and Plan: Due to cirrhosis of liver Ammonia 50 we will continue to monitor Cont Lactulose to 20mg TID - Time Spent with Patient Total time spent is greater than 50% in coordination of care (as documented) at patient's floor/unit and/or counseling patient: Internal Medicine: Result - Labs CBC & Chem 7: 03/10/19 04:12 03/10/19 04:12 Labs: Short CBC 03/10/19 Range/Units 04:12 WBC 4.7 (4.3-11.1) K/mcL Hgb 9.9 L (12.9-16.9) g/dL Hct 33.4 L (37.5-50.1) % Plt Count 167 (140-400) K/mcL Neutrophils # 3.7 (1.6-8.9) K/mcL BMP 03/10/19 04:12 Sodium 142 Potassium 3.8 Chloride 96 L Carbon Dioxide 39 H BUN 21 Creatinine 0.88 Glucose 231 H Calcium 9.2 Liver Function 03/10/19 Range/Units 04:12 Total Bilirubin 0.3 (0.3-1.0) mg/dL AST 14 (13-39) Units/L ALT 8 (7-52) Units/L Alkaline Phosphatase 80 (34-104) Units/L Albumin 3.7 (3.5-5.7) g/dL - ABG Interpretation ABG results: ABG ABG pH 7.44 pH Units (7.32-7.45) 03/09/19 11:32 ABG pCO2 73 mmHg (35-45) H* 03/09/19 11:32 ABG pO2 84 mmHg (85-104) L 03/09/19 11:32 ABG O2 Saturation 96 % (95-98) 03/09/19 11:32 Consult Discharge Plan - Plan Referrals: [facility] [Primary Care Provider] - (3) Altered mental status Qualifiers: Altered mental status type: disorientation Qualified Code(s): R41.0 - Disorientation, unspecified (7) CHF (congestive heart failure) Qualifiers: Heart failure type: diastolic Heart failure chronicity: chronic Qualified Code(s): I50.32 - Chronic diastolic (congestive) heart failure
--- NOTE | 2019-03-10 22:59 | Event Note ---
Date of Encounter: 03/10/19 Time of Encounter: 21:48 Alerted by patient's nurse ROSSANA Fragoso that patient was reporting pain and was asking for pain medication. Patient has [place] ordered every 6 hours and oxycodone ordered every 12 hours. Nurse informed patient he can only have the oxycodone every 12 hours and patient became very upset stating that is not how he takes at home. Patient last had [place] at 18:00 so next dose not due. Pt. told nurse he would call the police if he didn't get his pain medication. [facility] for altered mental status, cirrhosis, COPD, diabetes, and seizure disorder. Went to see the patient who was resting in bed. I educated the patient that he was receiving his oxycodone ER Q12HR for pain control as well as [place] Q6HR. Pt. became agitated and stated that he would leave AMA if he didn't receive his pain medication. I explained he was receiving his pain medications. He stated he needed more. Pt. continues to be slightly altered during conversation. Pt. stated that his told him they were going for a drive when she brought him here and he was "arrested" and held against his will. I stated that he was showing confusion when he was brought to the hospital and high doses of pain medication would only make this worse. I stated that I would discontinue the Q12HR ER order and replace it with Roxicodone Q6HR if this is what he preferred. He stated that this was fine. I then educated the pt. that I was protecting him from harm by carefully addressing his pain medication dosing. He stated that his [facility] doctor has been increasing his pain medication dosing and doesn't worry about the amount as I do. I explained that I was not his [facility] doctor and again was here to help him and not cause harm. Order changed. Alerted by nurse that when she took him the new dose of oxycodone, pt. refused because it wasn't high enough. Nurse instructed to hold the medication until pt. reported pain and required the medication. Nurse instructed to continue monitoring pt. very closely and alert me immediately of any adverse changes.
[2019-03-10] MEDS: *HR* OxyCODONE Immed Rel 5 MG TABLET PO PRN (23:51)
[2019-03-11] MEDS: levETIRAcetam 250 MG TABLET PO SCH ×2 (02:17→17:02)
[2019-03-11 03:41] LABS: Basophils % 0.3 %; Eosinophils % 0.2 %; Hematocrit 32.5 % (37.5-50.1); Hemoglobin 9.7 g/dL (12.9-16.9); Immature Granulocytes % 0.2 % (0-4); Lymphocytes # 1.4 K/mcL (0.6-4.6); Lymphocytes % 23.1 %; Mean Corpuscular HGB Conc 29.8 g/dL (31.6-35.5); Mean Corpuscular Hemoglobin 25.7 pg (28.0-33.3); Monocytes # 0.4 K/mcL (0.0-1.3); Monocytes % 6.9 %; Neutrophils # 4.1 K/mcL (1.6-8.9); Platelet Count 140 K/mcL (140-400); Red Blood Count 3.78 M/mcL (4.19-5.50); Red Cell Distribution Width 14.2 % (11.5-14.5); Segmented Neutrophils % 69.3 %
[2019-03-11 04:00] LABS: BUN/Creatinine Ratio 28 (6-26); Blood Urea Nitrogen 25 mg/dL (8-23); Calcium 8.7 mg/dL (8.6-10.3); Carbon Dioxide 38 mEq/L (23-29); Chloride 97 mEq/L (98-107); Glucose 208 mg/dL (70-105); Osmolality,Calculated 300 (280-300); Potassium 3.5 mEq/L (3.5-5.1); Sodium 140 mEq/L (136-145); eGFR For Non-African Americans > 60 (> 60)
[2019-03-11] MEDS: *HR* Heparin 5,000 UNIT/ML VIAL SQ SCH ×2 (05:14→17:03)
[2019-03-11] MEDS: MethylPREDNISolone 40 MG/ML VIAL IVP SCH ×2 (05:15→17:03)
[2019-03-11] MEDS: Budesonide/Formoterol 160/4.5 1 PUFF INH IH SCH ×2 (07:59→20:26)
[2019-03-11] MEDS: Insulin LISPRO 300 UNITS/3 ML VIAL SQ SCH ×4 (08:21→21:40)
[2019-03-11] MEDS: Lactulose Oral Soln 20 GM/30 ML UDC PO SCH ×3 (08:22→21:40)
[2019-03-11] MEDS: Furosemide 20 MG TABLET PO SCH (08:22)
[2019-03-11] MEDS: Cyanocobalamin (B-12) 1,000 MCG TABLET PO SCH (08:22)
[2019-03-11] MEDS: *HR* OxyCODONE Immed Rel 5 MG TABLET PO PRN ×2 (08:22→17:02)
[2019-03-11] MEDS: Aspirin 81 MG TAB.CHEW PO SCH (08:22)
[2019-03-11] MEDS: Cholecalciferol (D-3) 1,000 UNIT TABLET PO SCH (08:22)
[2019-03-11] MEDS: Magnesium Oxide 400 MG TABLET PO SCH ×2 (08:22→21:40)
[2019-03-11] MEDS: (Zinc [Zinc Chelated] 50 MG) PO SCH ×2 (08:23→21:40)
[2019-03-11] MEDS: Insulin DETEMIR 100 UNIT/ML X5UNITS SQ SCH ×2 (08:32→21:40)
--- NOTE | 2019-03-11 10:41 | Internal Med Progress Note ---
Hospitalist Progress Note - Encounter Date of Encounter: 03/11/19 Time of Encounter: 10:41 - Subjective Interval History: Patient was seen and examined at bedside patient is somewhat confused today talking about the government interfering with his pain medicine. He has his oxygen off at this time we will check an ABG - Exam Vitals: Temp Pulse Resp BP Pulse Ox 97.5 F L 59 16 179/79 94 03/11/19 07:29 03/11/19 07:29 03/11/19 07:59 03/11/19 07:29 03/11/19 07:59 Exam: Gen: A,A, O x3.. Looks confused and disoriented Chest: Diminished breath sounds B/L, moderate wheezing, No crackles, No rales Heart: S1S2+ RRR No murmurs Abd: Soft, NT, BS +, No organomegaly Ext: No edema, pulses are palpable, No calf tenderness Neuro : no focal neuro deficits..Altered mental status Skin: No rash. - Assessment and Plan (1) Acute exacerbation of chronic obstructive airways disease Current Visit: No Status: Acute Assessment and Plan: Lung sounds clear today No signs of infection Continue tapering steroids Frequent bronchodilators therapy continue on oxygen (2) Acute respiratory acidosis Current Visit: No Status: Acute Assessment and Plan: 1 patient has a history of respiratory failure hypercapnia-currently maintaining oxygen saturations on nasal cannula does not appear to be respiratory distress, however this morning he does have his oxygen off and he is confused and agitated. We will obtain ABG (3) Altered mental status Current Visit: No Status: Acute Assessment and Plan: Mostly due to hypercapnia respiratory failure and hepatic encephalopathy Brain MRI is negative for Ischemia fall precautions Ammonia level is 52 today continue with lactulose -we will check ABG (4) Acute and chronic respiratory failure with hypercapnia Current Visit: No Status: Acute Assessment and Plan: Reviewed ABG from this morning.. Does not appear to be respiratory distress -today he is confused and agitated-he did have his oxygen off - we will check ABG Cont him on BiPAP as needed during day time and continuous at night time counseled the pt about being compliance with BiPAP He may need to go to ECF for short term PT / OT will talk to CM / SW PT / OT donald (5) Seizure disorder Current Visit: No Status: Chronic Assessment and Plan: Resumed home medications-no seizure activity noted (6) Anxiety and depression Current Visit: No Status: Chronic Assessment and Plan: Resumed home medications (7) CHF (congestive heart failure) Current Visit: No Status: Chronic Assessment and Plan: Not in exacerbation resumed home medications (8) Chronic narcotic dependence Current Visit: Yes Status: Chronic Assessment and Plan: Continue home medication at low-dose (9) Hepatic encephalopathy Current Visit: Yes Status: Acute Assessment and Plan: Due to cirrhosis of liver Ammonia 52 we will continue to monitor Cont Lactulose to 20mg TID - Time Spent with Patient Total time spent is greater than 50% in coordination of care (as documented) at patient's floor/unit and/or counseling patient: Internal Medicine: Result - Labs CBC & Chem 7: 03/11/19 03:27 03/11/19 03:27 Labs: Short CBC 03/11/19 Range/Units 03:27 WBC 5.9 (4.3-11.1) K/mcL Hgb 9.7 L (12.9-16.9) g/dL Hct 32.5 L (37.5-50.1) % Plt Count 140 (140-400) K/mcL Neutrophils # 4.1 (1.6-8.9) K/mcL BMP 03/11/19 03:27 Sodium 140 Potassium 3.5 Chloride 97 L Carbon Dioxide 38 H BUN 25 H Creatinine 0.90 Glucose 208 H Calcium 8.7 - ABG Interpretation ABG results: ABG ABG pH 7.44 pH Units (7.32-7.45) 03/09/19 11:32 ABG pCO2 73 mmHg (35-45) H* 03/09/19 11:32 ABG pO2 84 mmHg (85-104) L 03/09/19 11:32 ABG O2 Saturation 96 % (95-98) 03/09/19 11:32 Consult Discharge Plan - Plan [facility]errals: [facility] [Primary Care Provider[facility] - (3) Altered mental status Qualifiers: Altered mental status type: disorientation Qualified Code(s): R41.0 - Disorientation, unspecified (7) CHF (congestive heart failure) Qualifiers: Heart failure type: diastolic Heart failure chronicity: chronic Qualified Code(s): I50.32 - Chronic diastolic (congestive) heart failure
[2019-03-11 11:19] LABS: ABG Base Excess 10 mEq/L (-2 to 3); ABG HCO3 37 mEq/L (21-27); ABG Oxygen Saturation 98 % (95-98); ABG PCO2 57 mmHg (35-45); ABG PH 7.42 pH Units (7.32-7.45); ABG PO2 100 mmHg (85-104); ABG TCO2 39 mEq/L (20-26)
[2019-03-11] MEDS: *HR* HYDROcodone/Acet 5/325 mg TABLET PO PRN (12:54)
[2019-03-12] MEDS: *HR* OxyCODONE Immed Rel 5 MG TABLET PO PRN ×3 (02:36→17:39)
[2019-03-12 03:59] LABS: Basophils % 0.4 %; Hematocrit 35.5 % (37.5-50.1); Hemoglobin 10.7 g/dL (12.9-16.9); Immature Granulocytes % 0.1 % (0-4); Lymphocytes # 1.7 K/mcL (0.6-4.6); Mean Corpuscular HGB Conc 30.1 g/dL (31.6-35.5); Mean Corpuscular Hemoglobin 25.7 pg (28.0-33.3); Mean Corpuscular Volume 85.3 fL (83.0-100.0); Mean Platelet Volume 10.1 fL (9.4-12.4); Monocytes # 0.5 K/mcL (0.0-1.3); Monocytes % 6.3 %; Platelet Count 167 K/mcL (140-400); Red Blood Count 4.16 M/mcL (4.19-5.50); Red Cell Distribution Width 14.1 % (11.5-14.5); Segmented Neutrophils % 69.2 %
[2019-03-12 04:18] LABS: BUN/Creatinine Ratio 25 (6-26); Blood Urea Nitrogen 23 mg/dL (8-23); Carbon Dioxide 37 mEq/L (23-29); Chloride 97 mEq/L (98-107); Glucose 158 mg/dL (70-105); Osmolality,Calculated 291 (280-300); Potassium 3.7 mEq/L (3.5-5.1); Sodium 137 mEq/L (136-145); eGFR For Non-African Americans > 60 (> 60)
[2019-03-12] MEDS: *HR* Heparin 5,000 UNIT/ML VIAL SQ SCH ×2 (06:01→17:39)
[2019-03-12] MEDS: MethylPREDNISolone 40 MG/ML VIAL IVP SCH (06:01)
[2019-03-12] MEDS: levETIRAcetam 250 MG TABLET PO SCH ×2 (06:01→17:39)
[2019-03-12] MEDS: Budesonide/Formoterol 160/4.5 1 PUFF INH IH SCH ×2 (08:06→20:29)
[2019-03-12] MEDS: Insulin LISPRO 300 UNITS/3 ML VIAL SQ SCH ×4 (08:32→21:41)
[2019-03-12] MEDS: Lactulose Oral Soln 20 GM/30 ML UDC PO SCH ×3 (08:32→21:41)
[2019-03-12] MEDS: Cholecalciferol (D-3) 1,000 UNIT TABLET PO SCH (08:33)
[2019-03-12] MEDS: Furosemide 20 MG TABLET PO SCH (08:33)
[2019-03-12] MEDS: Aspirin 81 MG TAB.CHEW PO SCH (08:33)
[2019-03-12] MEDS: Magnesium Oxide 400 MG TABLET PO SCH ×2 (08:33→21:42)
[2019-03-12] MEDS: Cyanocobalamin (B-12) 1,000 MCG TABLET PO SCH (08:34)
[2019-03-12] MEDS: (Zinc [Zinc Chelated] 50 MG) PO SCH ×2 (08:34→21:51)
[2019-03-12] MEDS: Insulin DETEMIR 100 UNIT/ML X5UNITS SQ SCH ×2 (08:46→21:41)
--- NOTE | 2019-03-12 12:55 | Internal Med Progress Note ---
Hospitalist Progress Note - Encounter Date of Encounter: 03/12/19 Time of Encounter: 12:57 - Subjective Interval History: Mr. Thompson is a 63 year old male with medical history of COPD, chronic hypoxic and hypercapneic resp failure, diabetes, CAD/PR, diastolic CHF, seizure, cirrhosis, HCV, HTN, HLD, GERD, anxiety and depression pt was brought into ER with confusion and AMS. He does have acute on hyper capneic resp failure with Ph 7.33, PCo2 97. He seems to be non compliance with his BiPAP at home. Counseled about it. Pt was seen and examined at bed side. He is more compliance with his BiPAP now. His PCo2 came down to 57 now . He is more alert, awake and O x 3. Less confused today. He denied any CP. No events over night - Exam Vitals: Temp Pulse Resp BP Pulse Ox 97.2 F L 83 18 163/71 97 03/12/19 11:08 03/12/19 11:08 03/12/19 11:08 03/12/19 11:08 03/12/19 11:08 Exam: Gen: A,A, O x3.. Chest: Diminished breath sounds B/L, mild wheezing, No crackles, No rales Heart: S1S2+ RRR No murmurs Abd: Soft, NT, BS +, No organomegaly Ext: No edema, pulses are palpable, No calf tenderness Neuro : no focal neuro deficits. Skin: No rash. - Assessment and Plan (1) Acute exacerbation of chronic obstructive airways disease Current Visit: No Status: Acute Assessment and Plan: No signs of infection Continue tapering steroids..switched to PO steroids Frequent bronchodilators therapy continue on oxygen (2) Acute respiratory acidosis Current Visit: No Status: Acute Assessment and Plan: Due to hypercapneic resp failure with COPD exacerbation improved (3) Altered mental status Current Visit: No Status: Acute Assessment and Plan: Mostly due to hypercapnia respiratory failure and hepatic encephalopathy Brain MRI is negative for Ischemia fall precautions improving (4) Hepatic encephalopathy Current Visit: Yes Status: Acute Assessment and Plan: Due to cirrhosis of liver Ammonia @ 47 Will continue to monitor Cont Lactulose to 20mg TID (5) Acute and chronic respiratory failure with hypercapnia Current Visit: No Status: Acute Assessment and Plan: Reviewed ABG from y/d -- PCo2 - 57 Cont him on BiPAP as needed during day time and continuous at night time counseled the pt about being compliance with BiPAP He may need to go to [facility] for short term PT / OT CM / SW working on it PT / OT eval (6) Seizure disorder Current Visit: No Status: Chronic Assessment and Plan: Resumed home medications-no seizure activity noted (7) Anxiety and depression Current Visit: No Status: Chronic Assessment and Plan: Resumed home medications (8) CHF (congestive heart failure) Current Visit: No Status: Chronic Assessment and Plan: Not in exacerbation resumed home medications (9) Chronic narcotic dependence Current Visit: Yes Status: Chronic Assessment and Plan: Continue home medication at low-dose - Time Spent with Patient Total time spent is greater than 50% in coordination of care (as documented) at patient's floor/unit and/or counseling patient: Internal Medicine: Result - Labs CBC & Chem 7: 03/12/19 03:47 03/12/19 03:47 Labs: Short CBC 03/12/19 Range/Units 03:47 WBC 7.2 (4.3-11.1) K/mcL Hgb 10.7 L (12.9-16.9) g/dL Hct 35.5 L (37.5-50.1) % Plt Count 167 (140-400) K/mcL Neutrophils # 5.0 (1.6-8.9) K/mcL BMP 03/12/19 03:47 Sodium 137 Potassium 3.7 Chloride 97 L Carbon Dioxide 37 H BUN 23 Creatinine 0.91 Glucose 158 H Calcium 9.0 - ABG Interpretation ABG results: ABG ABG pH 7.42 pH Units (7.32-7.45) 03/11/19 11:15 ABG pCO2 57 mmHg (35-45) H 03/11/19 11:15 ABG pO2 100 mmHg (85-104) 03/11/19 11:15 ABG O2 Saturation 98 % (95-98) 03/11/19 11:15 Consult Discharge Plan - Plan [facility]errals: [facility] [Primary Care Provider] - (3) Altered mental status Qualifiers: Altered mental status type: disorientation Qualified Code(s): R41.0 - Disorientation, unspecified (8) CHF (congestive heart failure) Qualifiers: Heart failure type: diastolic Heart failure chronicity: chronic Qualified Code(s): I50.32 - Chronic diastolic (congestive) heart failure
[2019-03-12] MEDS: *HR* HYDROcodone/Acet 5/325 mg TABLET PO PRN (21:42)
[2019-03-13] MEDS: *HR* Heparin 5,000 UNIT/ML VIAL SQ SCH (05:18)
[2019-03-13] MEDS: levETIRAcetam 250 MG TABLET PO SCH (05:26)
[2019-03-13] MEDS: *HR* OxyCODONE Immed Rel 5 MG TABLET PO PRN (05:37)
[2019-03-13] MEDS: Insulin LISPRO 300 UNITS/3 ML VIAL SQ SCH ×2 (07:58→11:35)
[2019-03-13] MEDS: Budesonide/Formoterol 160/4.5 1 PUFF INH IH SCH (08:20)
[2019-03-13] MEDS ORDERED: predniSONE 20 MG TABLET PO SCH (09:00)
[2019-03-13] MEDS: Magnesium Oxide 400 MG TABLET PO SCH (09:14)
[2019-03-13] MEDS: Lactulose Oral Soln 20 GM/30 ML UDC PO SCH (09:14)
[2019-03-13] MEDS: Cyanocobalamin (B-12) 1,000 MCG TABLET PO SCH (09:15)
[2019-03-13] MEDS: Cholecalciferol (D-3) 1,000 UNIT TABLET PO SCH (09:16)
[2019-03-13] MEDS: Aspirin 81 MG TAB.CHEW PO SCH (09:16)
[2019-03-13] MEDS: (Zinc [Zinc Chelated] 50 MG) PO SCH (09:16)
[2019-03-13] MEDS: Furosemide 20 MG TABLET PO SCH (09:23)
[2019-03-13] MEDS: Insulin DETEMIR 100 UNIT/ML X5UNITS SQ SCH (09:24)
[2019-03-13 11:31] VITALS: BP 144/79
--- NOTE | 2019-03-13 12:37 | Internal Med Progress Note ---
Hospitalist Progress Note - Encounter Date of Encounter: 03/13/19 Time of Encounter: 10:00 - Subjective Interval History: Mr. Thompson is a 63 year old male with medical history of COPD, chronic hypoxic and hypercapneic resp failure, diabetes, CAD/IA, diastolic CHF, seizure, cirrhosis, HCV, HTN, HLD, GERD, anxiety and depression pt was brought into ER with confusion and AMS. He does have acute on hyper capneic resp failure with Ph 7.33, PCo2 97. He seems to be non compliance with his BiPAP at home. Counseled about it. Pt was seen and examined at bed side. He is more compliance with his BiPAP now. His PCo2 came down to 57 now . He is more alert, awake and O x 3. Less confused today. He denied any CP. No events over night. - Exam Vitals: Temp Pulse Resp BP Pulse Ox 97.9 F 62 18 144/79 98 03/13/19 11:28 03/13/19 11:28 03/13/19 11:28 03/13/19 11:28 03/13/19 11:28 Exam: Gen: A,A, O x3.. Chest: Diminished breath sounds B/L, mild wheezing, No crackles, No rales Heart: S1S2+ RRR No murmurs Abd: Soft, NT, BS +, No organomegaly Ext: No edema, pulses are palpable, No calf tenderness Neuro : no focal neuro deficits. Skin: No rash. - Assessment and Plan (1) Acute exacerbation of chronic obstructive airways disease Current Visit: No Status: Acute Assessment and Plan: No signs of infection Continue tapering steroids..switched to PO steroids Frequent bronchodilators therapy continue on oxygen (2) Acute respiratory acidosis Current Visit: No Status: Acute Assessment and Plan: Due to hypercapneic resp failure with COPD exacerbation improved Need to be compliance with BiPAP (3) Altered mental status Current Visit: No Status: Acute Assessment and Plan: Mostly due to hypercapnia respiratory failure and hepatic encephalopathy Brain MRI is negative for Ischemia fall precautions improving need placement.. Unable to care for himself and is not able to care for him too. He definitely need skilled supervision care SW working on it to put him in a ECF for placement (4) Hepatic encephalopathy Current Visit: Yes Status: Acute Assessment and Plan: Due to cirrhosis of liver Improving Will continue to monitor Cont Lactulose to 20mg TID (5) Acute and chronic respiratory failure with hypercapnia Current Visit: No Status: Acute Assessment and Plan: Reviewed ABG from y/d -- PCo2 - 57 Cont him on BiPAP as needed during day time and continuous at night time counseled the pt about being compliance with BiPAP He may need to go to ECF for placement CM / SW working on it (6) Seizure disorder Current Visit: No Status: Chronic Assessment and Plan: Resumed home medications-no seizure activity noted (7) Anxiety and depression Current Visit: No Status: Chronic Assessment and Plan: Resumed home medications (8) CHF (congestive heart failure) Current Visit: No Status: Chronic Assessment and Plan: Not in exacerbation resumed home medications (9) Chronic narcotic dependence Current Visit: Yes Status: Chronic Assessment and Plan: Continue home medication at low-dose - Time Spent with Patient Total time spent is greater than 50% in coordination of care (as documented) at patient's floor/unit and/or counseling patient: Internal Medicine: Result - Labs CBC & Chem 7: 03/12/19 03:47 03/12/19 03:47 - ABG Interpretation ABG results: ABG ABG pH 7.42 pH Units (7.32-7.45) 03/11/19 11:15 ABG pCO2 57 mmHg (35-45) H 03/11/19 11:15 ABG pO2 100 mmHg (85-104) 03/11/19 11:15 ABG O2 Saturation 98 % (95-98) 03/11/19 11:15 Consult Discharge Plan - Plan [facility]errals: [facility] [Primary Care Provider] - (3) Altered mental status Qualifiers: Altered mental status type: disorientation Qualified Code(s): R41.0 - Disorientation, unspecified (8) CHF (congestive heart failure) Qualifiers: Heart failure type: diastolic Heart failure chronicity: chronic Qualified Code(s): I50.32 - Chronic diastolic (congestive) heart failure
--- NOTE | 2019-03-13 15:10 | Discharge Summary ---
- NOTES TO OUTPATIENT PROVIDER Notes to Outpatient Provider: f/u with PCP in one week. f/u with Pulmonary in 1-2 weeks. Please keep using your BiPAP daily. Date of Encounter: 03/13/19 Time of Encounter: 15:04 - Discharge Diagnosis (1) Acute exacerbation of chronic obstructive airways disease Priority: Primary Status: Acute (2) Acute respiratory acidosis Priority: Primary Status: Acute (3) Altered mental status Priority: Primary Status: Acute Qualifiers: Altered mental status type: disorientation Qualified Code(s): R41.0 - Disorientation, unspecified (4) Hepatic encephalopathy Priority: Secondary Status: Acute (5) Acute and chronic respiratory failure with hypercapnia Priority: Secondary Status: Acute (6) Seizure disorder Priority: Secondary Status: Chronic (7) Anxiety and depression Priority: Secondary Status: Chronic (8) CHF (congestive heart failure) Priority: Secondary Status: Chronic Qualifiers: Heart failure type: diastolic Heart failure chronicity: chronic Qualified Code(s): I50.32 - Chronic diastolic (congestive) heart failure (9) Chronic narcotic dependence Priority: Secondary Status: Chronic Hospital course: Mr. Thompson is a 63 year old male with medical history of COPD, chronic hypoxic and hypercapneic resp failure, diabetes, CAD/CT, diastolic CHF, seizure, cirrhosis, HCV, HTN, HLD, GERD, anxiety and depression pt was brought into ER with confusion and AMS. He does have acute on hyper capneic resp failure with Ph 7.33, PCo2 97. He seems to be non compliance with his BiPAP at home. He was admitted in the hospital and started him continuous BiPAP for 36-48 hrs, his PCo2 improved to 57. He also have acute hepatic encephalopathy with sig nificantly elevated ammonia level. Patient was given frequent lactulose and now his ammonia improved. His mentation also seems to be better now. Since he is non compliance with BiPAP at home and which lead to multiple hospitalizations hereI did recommend pt to go to ECF. Pt also evaluated by PT / OT who recommend ECF placement too. However due to some insurance issues pt's do not wanted to s end him to ECF and she wanted him to take home with home health services. I did explain to her he does need close supervision at skilled facility, however wanted to take him home only. So will d/c him home with home health services. Pt also adamant to go to [facility] and wanted to go home only. - Time Spent with Patient Total time spent providing and/or coordinating discharge services: - Discharge Medications Prescriptions: New predniSONE [PredniSONE] 40 mg PO DAILY #10 tablet Continued Cholecalciferol (Vitamin D3) [Vitamin D3] 2,000 unit PO BID Aspirin 81 mg PO DAILY tab.chew Sennosides/Docusate Sodium [Senna-Docusate Sodium Tablet] 1 tab PO HS Zinc [Zinc Chelated] 50 mg PO BID Lactulose 10 gm PO TID Magnesium Oxide [Magnesium] 400 mg PO BID Miconazole Nitrate [[place]] 1 appl TP BID Insulin ASPART [Novolog Flexpen] 10 unit SQ BID Cyanocobalamin (Vitamin B-12) [Vitamin B12] 1,000 mcg PO BID Potassium Chloride [K-Tab ER] 20 meq PO DAILY hydrOXYzine HCl [Hydroxyzine HCl] 25 mg PO HS PRN PRN Reason: sleep/anxiety Sertraline [Zoloft] 50 mg PO DAILY Insulin DETEMIR [Levemir] 30 unit SQ BID Insulin ASPART [Novolog Flexpen] 5 unit SQ QAM Montelukast [Singulair] 10 mg PO HS Memantine [Namenda] 10 mg PO BID Losartan [Cozaar] 25 mg PO DAILY levETIRAcetam [Keppra] 250 mg PO Q12H Cetirizine HCl [Zyrtec] 10 mg PO DAILY Atorvastatin Calcium [Lipitor] 40 mg PO HS Ipratropium/Albuterol Sulfate [Combivent Respimat Inhal [place]] 1 puff IH Q6H Furosemide [Lasix] 40 mg PO DAILY Omeprazole 20 mg PO DAILY Changed Oxycodone HCl [Oxycontin] 5 mg PO Q6H PRN #0 PRN Reason: CHRONIC PAIN Home Medications: Cholecalciferol (Vitamin D3) [Vitamin D3] 2,000 unit PO BID 03/15/16 [History] Cyanocobalamin (Vitamin B-12) [Vitamin B12] 1,000 mcg PO BID 04/03/17 [History] Aspirin 81 mg PO DAILY tab.chew 09/05/17 [Rx] Insulin ASPART [Novolog Flexpen] 5 unit SQ QAM 08/09/18 [History] Insulin DETEMIR [Levemir] 30 unit SQ BID 08/09/18 [History] Potassium Chloride [K-Tab ER] 20 meq PO DAILY 08/09/18 [History] Sertraline [Zoloft] 50 mg PO DAILY 08/09/18 [History] hydrOXYzine HCl [Hydroxyzine HCl] 25 mg PO HS PRN 08/09/18 [History] Sennosides/Docusate Sodium [Senna-Docusate Sodium Tablet] 1 tab PO HS 10/07/18 [History] Zinc [Zinc Chelated] 50 mg PO BID 10/07/18 [History] Atorvastatin Calcium [Lipitor] 40 mg PO HS 03/06/19 [History] Cetirizine HCl [Zyrtec] 10 mg PO DAILY 03/06/19 [History] Furosemide [Lasix] 40 mg PO DAILY 03/06/19 [History] Ipratropium/Albuterol Sulfate [Combivent Respimat Inhal [place]] 1 puff IH Q6H 03/06/19 [History] Losartan [Cozaar] 25 mg PO DAILY 03/06/19 [History] Memantine [Namenda] 10 mg PO BID 03/06/19 [History] Montelukast [Singulair] 10 mg PO HS 03/06/19 [History] Omeprazole 20 mg PO DAILY 03/06/19 [History] levETIRAcetam [Keppra] 250 mg PO Q12H 03/06/19 [History] Budesonide/Formoterol 80/4.5 [Symbicort 80/4.5] 2 puff IH BIDR #2 inhaler 03/07/19 [Rx] Insulin ASPART [Novolog Flexpen] 10 unit SQ BID 03/07/19 [History] Lactulose 10 gm PO TID 03/07/19 [History] Magnesium Oxide [Magnesium] 400 mg PO BID 03/07/19 [History] Miconazole Nitrate [[place]] 1 appl TP BID 03/07/19 [History] Oxycodone HCl [Oxycontin] 5 mg PO Q6H PRN #0 03/13/19 [Rx] predniSONE [PredniSONE] 40 mg PO DAILY #10 tablet 03/13/19 [Rx] Allergies/Adverse Reactions: Allergy/AdvReac Type Severity Reaction Status Date / Time No Known Allergies Allergy Verified 03/07/19 11:53 Date of admission: 03/08/19 18:28 [facility] care physician: [facility] Consults: 03/06/19 23:57 Consult to Caramel Candy Maker [CONS] Routine Reason for SW Consult: power of bindery machine feeder offbearer, home health 03/09/19 13:38 Consult to Occupational Therapy [CONS] Routine Comment: Evaluate, develop and implement POC Reason for Consult: WEAKNESS, POSSIBLE PLACEMENT Does patient have active BEDREST order?: No Is patient medically & hemodynamically stable?: Yes Consult to Physical Therapy [CONS] Routine Comment: Evaluate, develop and implement POC Reason for Consult: WEAKNESS, POSSIBLE PLACEMENT Does patient have active BEDREST order?: No Is patient medically & hemodynamically stable?: Yes - Constitutional Vitals: Temp Pulse Resp BP Pulse Ox 97.9 F 62 18 144/79 98 03/13/19 11:28 03/13/19 11:28 03/13/19 11:28 03/13/19 11:28 03/13/19 11:28 General appearance: Present: cooperative, A&O X 3, obese Exam: Gen: A,A, O x3.. Chest: Diminished breath sounds B/L, mild wheezing, No crackles, No rales Heart: S1S2+ RRR No murmurs Abd: Soft, NT, BS +, No organomegaly Ext: No edema, pulses are palpable, No calf tenderness Neuro : no focal neuro deficits. Skin: No rash. - Patient Status Disposition: Home Health Service Condition: Good Overall status at discharge: patient is back to baseline - Discharge Instructions Instructions: Using Oxygen at Home (DC), Chronic Obstructive Pulmonary Disease (DC), BiPAP, Finisher Card Tender (GEN), Transient Ischemic Attack, Finisher Card Tender (GEN) Follow Up With: [facility] [Primary Care Provider] - (Please call and make an appointment with in 2 weeks of discharge date. ) Vibha Fulton MD [Partnered Physician] - Additional Instructions: Follow-up appointments: If there is not an appointment listed below, please call your physician and schedule a follow-up appointment. If you have congestive heart failure and your symptoms return, make an appointment with your physician. Medication List: Carry an up to date list of medications you are taking at all time. We have given you an updated medication list including any new medications that you have been prescribed. Please provide that list to your primary provider Symptoms: If your condition changes or you experience any of the following symptoms, notify your physician immediately: Unusual or worsening pain, fever, persistent nausea and vomiting, bleeding, increase in swelling (especially in your legs), sudden weight gain, extreme dizziness, chest pain, increased drainage or redness from a wound or incision. Go to the emergency department if you experience a problem with breathing. Weights: If you have a history of swelling or shortness of breath, weigh yourself daily and notify your physician if you have a weight gain of two or more pounds in one day or 5 or more pounds in a week. If you experience any of the warning signs for stroke: Sudden numbness or weakness of the face, arm or leg; especially on one side of the body, sudden confusion, trouble speaking or understanding, sudden trouble seeing in one or both eyes, sudden trouble walking, dizziness, loss of balance or coordination, sudden sever headache with no cause; Call 911 or go to the emergency room. Stroke is a medical emergency. Some risk factors for stroke: Age, cigarette smoking, diabetes, excessive alcohol consumption, family history, high blood pressure, overweight, physical inactivity, prior stroke, heart attack, diagnosis of carotid artery stenosis or other artery disease. If you smoke, STOP: Smoking or tobacco use significantly increases your risk of heart and lung disease. Your chance of disease greatly increases if you continue to smoke. For more information, call the [place] tobacco quit line for smoking cessation 6-421-ULPK-NOW ( ) - Diet and Activity Activity: increase activity as tolerated Diet: low salt diet
--- NOTE | 2019-03-13 15:12 | Physician Discharge Referral ---
Home Health/Hosp Referral Info Transfer to: Home Health Provider in Charge Post Discharge: PCP - Diagnosis (1) Acute exacerbation of chronic obstructive airways disease Status: Acute (2) Acute respiratory acidosis Status: Acute (3) Altered mental status Status: Acute (4) Hepatic encephalopathy Status: Acute (5) Acute and chronic respiratory failure with hypercapnia Status: Acute (6) Seizure disorder Status: Chronic (7) Anxiety and depression Status: Chronic (8) CHF (congestive heart failure) Status: Chronic (9) Chronic narcotic dependence Status: Chronic - Respiratory Orders Smoking Cessation: Smoking cessation has been advised. For more information, call the [place] Tobacco Quit Line at 5-601-EFQS-NOW. - Services Needed Following services are medically necessary services: Nursing, Physical Therapy, Occupational Therapy - Transfer Medications Prescriptions: predniSONE [PredniSONE] 40 mg PO DAILY #10 tablet Home Medications: Cholecalciferol (Vitamin D3) [Vitamin D3] 2,000 unit PO BID 03/15/16 [History] Cyanocobalamin (Vitamin B-12) [Vitamin B12] 1,000 mcg PO BID 04/03/17 [History] Aspirin 81 mg PO DAILY tab.chew 09/05/17 [Rx] Insulin ASPART [Novolog Flexpen] 5 unit SQ QAM 08/09/18 [History] Insulin DETEMIR [Levemir] 30 unit SQ BID 08/09/18 [History] Potassium Chloride [K-Tab ER] 20 meq PO DAILY 08/09/18 [History] Sertraline [Zoloft] 50 mg PO DAILY 08/09/18 [History] hydrOXYzine HCl [Hydroxyzine HCl] 25 mg PO HS PRN 08/09/18 [History] Sennosides/Docusate Sodium [Senna-Docusate Sodium Tablet] 1 tab PO HS 10/07/18 [History] Zinc [Zinc Chelated] 50 mg PO BID 10/07/18 [History] Atorvastatin Calcium [Lipitor] 40 mg PO HS 03/06/19 [History] Cetirizine HCl [Zyrtec] 10 mg PO DAILY 03/06/19 [History] Furosemide [Lasix] 40 mg PO DAILY 03/06/19 [History] Ipratropium/Albuterol Sulfate [Combivent Respimat Inhal [place]] 1 puff IH Q6H 03/06/19 [History] Losartan [Cozaar] 25 mg PO DAILY 03/06/19 [History] Memantine [Namenda] 10 mg PO BID 03/06/19 [History] Montelukast [Singulair] 10 mg PO HS 03/06/19 [History] Omeprazole 20 mg PO DAILY 03/06/19 [History] levETIRAcetam [Keppra] 250 mg PO Q12H 03/06/19 [History] Budesonide/Formoterol 80/4.5 [Symbicort 80/4.5] 2 puff IH BIDR #2 inhaler 03/07/19 [Rx] Insulin ASPART [Novolog Flexpen] 10 unit SQ BID 03/07/19 [History] Lactulose 10 gm PO TID 03/07/19 [History] Magnesium Oxide [Magnesium] 400 mg PO BID 03/07/19 [History] Miconazole Nitrate [Aloe [place]] 1 appl TP BID 03/07/19 [History] Oxycodone HCl [Oxycontin] 5 mg PO Q6H PRN #0 03/13/19 [Rx] predniSONE [PredniSONE] 40 mg PO DAILY #10 tablet 03/13/19 [Rx] Allergies/Adverse Reactions: Allergy/AdvReac Type Severity Reaction Status Date / Time No Known Allergies Allergy Verified 03/07/19 11:53 Certification: Further, I certify that my clinical findings support that this patient is homebound (i.e. absences from home require considerable and taxing effort and are for medical reasons or [employer] services or infrequently or short duration when for other reasons) because: Homebound Reason: Patient requires assistance of a person or device to safely leave home Attestation: My signature below is to certify that this patient is under my care and that I, or nurse practitioner, or a physician's executive assistant working with me, has a [id number] encounter with this patient.
== END 2019-03-13 16:20 | disposition home health service (06) | DRG 189 ==
LOC: 3BNU → SUATTDRO 23:28
PROVIDERS: ADMIT Internal Medicine; ATTEND Family Medicine

== ENCOUNTER 2020-05-06 15:18 | Inpatient (IN) ==
[2020-05-06] MEDS ORDERED: Naloxone 0.4 MG/ML INJ IVP PRN (20:01)
[2020-05-06] MEDS ORDERED: *HR* Dextrose 50 % in Water (Vial) 50 ML VIAL IVP PRN (20:17)
[2020-05-06] MEDS ORDERED: D5% in Water 1,000 ML IVC PRN (20:17)
[2020-05-06] MEDS ORDERED: Dextrose Gel 15 GM/37.5 ML TUBE PO PRN ×2 (20:17)
[2020-05-06] MEDS ORDERED: Artificial Tears SOLN 15 ML BOTTLE BOTH EYES PRN (20:21)
[2020-05-06] MEDS ORDERED: Insulin LISPRO 300 UNITS/3 ML VIAL SQ SCH (20:30)
[2020-05-06] MEDS ORDERED: Isovue-370 500 ML BOTTLE IVP ONE (20:34)
[2020-05-06 20:57] LABS: ABG Base Excess 10 mEq/L (-2 to 3); ABG HCO3 32 mEq/L (21-27); ABG Oxygen Saturation 99 % (95-98); ABG PCO2 34 mmHg (35-45); ABG PH 7.58 pH Units (7.32-7.45); ABG PO2 103 mmHg (85-104); ABG TCO2 34 mEq/L (20-26)
[2020-05-06] MEDS ORDERED: Vancomycin 0 MG in 0.9 % Sodium Chloride 250 ML IVPB SCH (21:00)
[2020-05-06 21:01] LABS: ABG Base Excess 20 mEq/L (-2 to 3); ABG HCO3 45 mEq/L (21-27); ABG Oxygen Saturation 91 % (95-98); ABG PCO2 51 mmHg (35-45); ABG PH 7.55 pH Units (7.32-7.45); ABG PO2 54 mmHg (85-104); ABG TCO2 47 mEq/L (20-26); Blood Gas Modality ASSIST CONTROL; Blood Gas VT 550 cc
[2020-05-06] MEDS: FentaNYL (PF) 1,000 MCG/100 ML IV.SOLN IVC SCH (21:07)
[2020-05-06] MEDS: Albuterol 2.5 MG/3 ML NEBULIZER IH SCH (21:37)
[2020-05-06 22:27] LABS: Troponin I < 0.03 ng/mL (< 0.04)
[2020-05-06 22:41] LABS: BUN/Creatinine Ratio 21 (6-26); Blood Urea Nitrogen 17 mg/dL (8-23); Calcium 8.6 mg/dL (8.6-10.3); Carbon Dioxide 43 mEq/L (23-29); Chloride 90 mEq/L (98-107); Glucose 175 mg/dL (70-105); Magnesium 1.4 mg/dL (1.6-2.6); Osmolality,Calculated 294 (280-300); Phosphorous 1.8 mg/dL (2.7-4.5); Potassium 3.2 mEq/L (3.5-5.1); Sodium 139 mEq/L (136-145); eGFR For African Americans > 60 (> 60); eGFR For Non-African Americans > 60 (> 60)
[2020-05-06] MEDS: Chlorhexidine Rinse 15 ML MOUTHWASH MM SCH (22:45)
[2020-05-06] MEDS: levETIRAcetam 500 MG/5 ML UDC GTUBE SCH (22:45)
[2020-05-06] MEDS ORDERED: Calcium Gluconate 1gm/50mL 1 GM/50 ML BAG IVPB PRN (23:52)
[2020-05-06] MEDS ORDERED: Potassium Phosphate 44 MEQ in 0.9 % Sodium Chloride 250 ML IVPB PRN (23:52)
[2020-05-07] MEDS: Piperacillin/Tazobactam 3.375 GM in 0.9 % Sodium Chloride Mini Bag 100 ML IVPB SCH ×3 (00:37→15:59)
[2020-05-07] MEDS: *HR* Heparin 5,000 UNIT/ML VIAL SQ SCH ×3 (00:37→15:59)
[2020-05-07] MEDS: Artificial Tears SOLN 15 ML BOTTLE BOTH EYES SCH ×4 (01:05→10:34)
[2020-05-07] MEDS: Insulin LISPRO 300 UNITS/3 ML VIAL SQ SCH ×6 (01:14→19:28)
[2020-05-07] MEDS: Albuterol 2.5 MG/3 ML NEBULIZER IH SCH ×4 (03:53→21:37)
[2020-05-07 04:15] LABS: Basophils % 0.3 %; Eosinophils # 0.3 K/mcL (0.0-0.6); Eosinophils % 5.6 %; Hematocrit 31.8 % (37.5-50.1); Hemoglobin 9.5 g/dL (12.9-16.9); Immature Granulocytes % 0.2 % (0-4); Lymphocytes # 0.9 K/mcL (0.6-4.6); Lymphocytes % 14.4 %; Mean Corpuscular HGB Conc 29.9 g/dL (31.6-35.5); Mean Corpuscular Hemoglobin 26.5 pg (28.0-33.3); Mean Corpuscular Volume 88.6 fL (83.0-100.0); Mean Platelet Volume 9.8 fL (9.4-12.4); Monocytes # 0.5 K/mcL (0.0-1.3); Neutrophils # 4.2 K/mcL (1.6-8.9); Platelet Count 152 K/mcL (140-400); Red Blood Count 3.59 M/mcL (4.19-5.50); Red Cell Distribution Width 14.3 % (11.5-14.5); Segmented Neutrophils % 70.5 %; White Blood Count 5.9 K/mcL (4.3-11.1)
[2020-05-07] MEDS: FentaNYL (PF) 1,000 MCG/100 ML IV.SOLN IVC SCH (04:29)
[2020-05-07 04:30] LABS: ABG Base Excess 20 mEq/L (-2 to 3); ABG HCO3 48 mEq/L (21-27); ABG Oxygen Saturation 94 % (95-98); ABG PCO2 74 mmHg (35-45); ABG PH 7.42 pH Units (7.32-7.45); ABG PO2 73 mmHg (85-104); ABG TCO2 50 mEq/L (20-26); Blood Gas Modality ASSIST CONTROL; Blood Gas VT 550 cc
[2020-05-07 04:32] LABS: BUN/Creatinine Ratio 20 (6-26); Blood Urea Nitrogen 18 mg/dL (8-23); Calcium 8.9 mg/dL (8.6-10.3); Carbon Dioxide 43 mEq/L (23-29); Chloride 91 mEq/L (98-107); Glucose 140 mg/dL (70-105); Magnesium 2.1 mg/dL (1.6-2.6); Osmolality,Calculated 292 (280-300); Phosphorous 2.8 mg/dL (2.7-4.5); Potassium 3.6 mEq/L (3.5-5.1); Sodium 139 mEq/L (136-145); eGFR For African Americans > 60 (> 60); eGFR For Non-African Americans > 60 (> 60)
[2020-05-07] MEDS: levETIRAcetam 500 MG/5 ML UDC GTUBE SCH (07:50)
[2020-05-07] MEDS: Pantoprazole 40 MG VIAL IVP SCH (07:50)
[2020-05-07] MEDS: Chlorhexidine Rinse 15 ML MOUTHWASH MM SCH (07:50)
[2020-05-07] MEDS ORDERED: Furosemide 20 MG/2 ML VIAL IVP SCH (09:00)
[2020-05-07] MEDS ORDERED: Vancomycin 1,750 MG/517.5 ML IV.SOLN IVPB SCH (09:00)
[2020-05-07] MEDS: MethylPREDNISolone 40 MG/ML VIAL IVP SCH ×2 (11:23→17:24)
[2020-05-07] MEDS ORDERED: Haloperidol Lactate 5 MG/ML VIAL IM PRN (15:05)
[2020-05-07] MEDS ORDERED: Haloperidol Lactate 5 MG/ML VIAL IVP PRN (15:42)
[2020-05-07] MEDS: Dexmedetomidine HCl 400 MCG/100 ML MLS IVC SCH ×2 (17:23→21:25)
[2020-05-07] MEDS: levETIRAcetam 250 MG TABLET PO SCH (17:24)
[2020-05-07] MEDS: *HR* Buprenorphine HCl 2 MG SUBLINGUAL TABLET SL SCH (19:27)
[2020-05-07] MEDS: OLANZapine 5 MG TAB.RAPDIS PO SCH (19:27)
[2020-05-07] MEDS: Insulin DETEMIR 100 UNIT/ML X5UNITS SQ SCH (20:12)
[2020-05-07 21:03] LABS: Magnesium 1.8 mg/dL (1.6-2.6)
[2020-05-08] MEDS: Piperacillin/Tazobactam 3.375 GM in 0.9 % Sodium Chloride Mini Bag 100 ML IVPB SCH ×2 (00:41→08:01)
[2020-05-08] MEDS: *HR* Heparin 5,000 UNIT/ML VIAL SQ SCH ×4 (00:42→23:55)
[2020-05-08] MEDS: Dexmedetomidine HCl 400 MCG/100 ML MLS IVC SCH ×3 (00:52→07:59)
[2020-05-08] MEDS: Albuterol 2.5 MG/3 ML NEBULIZER IH SCH ×4 (03:34→21:28)
[2020-05-08] MEDS: levETIRAcetam 250 MG TABLET PO SCH ×2 (05:08→17:09)
[2020-05-08] MEDS: MethylPREDNISolone 40 MG/ML VIAL IVP SCH (05:08)
[2020-05-08 05:34] LABS: Immature Granulocytes % 0.2 % (0-4); Mean Platelet Volume 9.8 fL (9.4-12.4)
[2020-05-08 05:36] LABS: Basophils % 0.2 %; Eosinophils # 0.1 K/mcL (0.0-0.6); Eosinophils % 2.8 %; Hematocrit 29.6 % (37.5-50.1); Hemoglobin 8.9 g/dL (12.9-16.9); Lymphocytes # 1.2 K/mcL (0.6-4.6); Lymphocytes % 28.5 %; Mean Corpuscular HGB Conc 30.1 g/dL (31.6-35.5); Mean Corpuscular Hemoglobin 26.4 pg (28.0-33.3); Mean Corpuscular Volume 87.8 fL (83.0-100.0); Monocytes # 0.3 K/mcL (0.0-1.3); Monocytes % 7.9 %; Neutrophils # 2.6 K/mcL (1.6-8.9); Platelet Count 160 K/mcL (140-400); Red Blood Count 3.37 M/mcL (4.19-5.50); Red Cell Distribution Width 14.2 % (11.5-14.5); Segmented Neutrophils % 60.4 %; White Blood Count 4.3 K/mcL (4.3-11.1)
[2020-05-08 05:59] LABS: Alanine Aminotransferase 15 Units/L (7-52); Albumin 3.3 g/dL (3.5-5.7); Albumin/Globulin Ratio 1.1 (1.1-2.2); Alkaline Phosphatase 73 Units/L (34-104); Aspartate Amino Transferase 19 Units/L (13-39); BUN/Creatinine Ratio 19 (6-26); Bilirubin,Total 0.4 mg/dL (0.3-1.0); Blood Urea Nitrogen 17 mg/dL (8-23); Calcium 8.8 mg/dL (8.6-10.3); Carbon Dioxide 44 mEq/L (23-29); Chloride 91 mEq/L (98-107); Globulin 2.9 g/dL (2.4-3.5); Glucose 170 mg/dL (70-105); Magnesium 2.1 mg/dL (1.6-2.6); Osmolality,Calculated 294 (280-300); Potassium 3.3 mEq/L (3.5-5.1); Sodium 139 mEq/L (136-145); Total Protein 6.2 g/dL (6.4-8.9); eGFR For African Americans > 60 (> 60); eGFR For Non-African Americans > 60 (> 60)
[2020-05-08] MEDS: *HR* Buprenorphine HCl 2 MG SUBLINGUAL TABLET SL SCH ×2 (08:00→20:23)
[2020-05-08] MEDS: OLANZapine 5 MG TAB.RAPDIS PO SCH (08:00)
[2020-05-08] MEDS: Insulin DETEMIR 100 UNIT/ML X5UNITS SQ SCH ×2 (08:01→20:26)
[2020-05-08] MEDS: Pantoprazole 40 MG VIAL IVP SCH (08:01)
[2020-05-08] MEDS: Insulin LISPRO 300 UNITS/3 ML VIAL SQ SCH ×3 (08:02→17:10)
[2020-05-08] MEDS ORDERED: Furosemide 20 MG TABLET PO SCH (09:00)
[2020-05-08] MEDS ORDERED: Lactulose Oral Soln 20 GM/30 ML UDC PO SCH (09:00)
[2020-05-08] MEDS ORDERED: Aspirin 81 MG TAB.CHEW PO SCH (09:00)
[2020-05-08] MEDS ORDERED: Insulin Regular, Human 100 UNIT/ML SQ ONE (13:40)
[2020-05-08] MEDS ORDERED: Insulin DETEMIR 100 UNIT/ML X5UNITS SQ ONE (14:00)
[2020-05-08] MEDS ORDERED: Naloxone 0.4 MG/ML INJ IVP PRN (14:15)
[2020-05-08] MEDS ORDERED: Dextrose Gel 15 GM/37.5 ML TUBE PO PRN ×2 (14:15)
[2020-05-08] MEDS ORDERED: *HR* Dextrose 50 % in Water (Vial) 50 ML VIAL IVP PRN (14:15)
[2020-05-08] MEDS ORDERED: Insulin LISPRO 300 UNITS/3 ML VIAL SQ ONE (14:15)
[2020-05-08] MEDS ORDERED: D5% in Water 1,000 ML IVC PRN (14:15)
[2020-05-08] MEDS ORDERED: Insulin LISPRO 300 UNITS/3 ML VIAL SQ SCH ×3 (16:30→21:00)
[2020-05-08] MEDS: Lactulose Oral Soln 20 GM/30 ML UDC PO SCH (20:24)
[2020-05-09] MEDS: Albuterol 2.5 MG/3 ML NEBULIZER IH SCH ×2 (03:13→09:25)
[2020-05-09 05:15] LABS: Eosinophils % 4.9 %; Immature Granulocytes % 0.2 % (0-4); Mean Platelet Volume 9.5 fL (9.4-12.4)
[2020-05-09 05:17] LABS: Basophils % 0.2 %; Eosinophils # 0.2 K/mcL (0.0-0.6); Hematocrit 30.7 % (37.5-50.1); Hemoglobin 9.1 g/dL (12.9-16.9); Lymphocytes # 1.5 K/mcL (0.6-4.6); Lymphocytes % 31.3 %; Mean Corpuscular HGB Conc 29.6 g/dL (31.6-35.5); Mean Corpuscular Hemoglobin 26.1 pg (28.0-33.3); Mean Corpuscular Volume 88.2 fL (83.0-100.0); Monocytes # 0.3 K/mcL (0.0-1.3); Monocytes % 5.9 %; Neutrophils # 2.8 K/mcL (1.6-8.9); Platelet Count 171 K/mcL (140-400); Red Blood Count 3.48 M/mcL (4.19-5.50); Red Cell Distribution Width 14.3 % (11.5-14.5); Segmented Neutrophils % 57.5 %; White Blood Count 4.9 K/mcL (4.3-11.1)
[2020-05-09 05:31] LABS: Magnesium 1.5 mg/dL (1.6-2.6); Phosphorous 3.5 mg/dL (2.7-4.5)
[2020-05-09 05:36] LABS: BUN/Creatinine Ratio 21 (6-26); Blood Urea Nitrogen 18 mg/dL (8-23); Calcium 8.5 mg/dL (8.6-10.3); Carbon Dioxide 44 mEq/L (23-29); Chloride 93 mEq/L (98-107); Glucose 93 mg/dL (70-105); Osmolality,Calculated 294 (280-300); Potassium 3.2 mEq/L (3.5-5.1); Sodium 141 mEq/L (136-145); eGFR For African Americans > 60 (> 60); eGFR For Non-African Americans > 60 (> 60)
[2020-05-09] MEDS: levETIRAcetam 250 MG TABLET PO SCH (06:32)
[2020-05-09] MEDS: *HR* Heparin 5,000 UNIT/ML VIAL SQ SCH (08:51)
[2020-05-09] MEDS: Insulin DETEMIR 100 UNIT/ML X5UNITS SQ SCH (08:52)
[2020-05-09] MEDS: *HR* Buprenorphine HCl 2 MG SUBLINGUAL TABLET SL SCH (08:53)
[2020-05-09] MEDS: Lactulose Oral Soln 20 GM/30 ML UDC PO SCH (08:54)
[2020-05-09] MEDS ORDERED: predniSONE 20 MG TABLET PO SCH (09:00)
[2020-05-09] MEDS ORDERED: Furosemide 20 MG TABLET PO SCH (09:00)
[2020-05-09] MEDS ORDERED: Aspirin 81 MG TAB.CHEW PO SCH (09:00)
[2020-05-09] MEDS: Insulin LISPRO 300 UNITS/3 ML VIAL SQ SCH (09:06)
[2020-05-09 09:20] VITALS: BP 142/79
== END 2020-05-09 12:34 | disposition home or self-care (01) | DRG 208 ==
LOC: ICNU 19:29
PROVIDERS: ADMIT Pediatrics; ATTEND Pediatrics

== ENCOUNTER 2020-07-26 06:39 | Inpatient (IN) ==
[2020-07-26] MEDS ORDERED: Naloxone 0.4 MG/ML INJ IVP PRN (10:45)
[2020-07-26] MEDS ORDERED: Dextrose Gel 15 GM/37.5 ML TUBE PO PRN ×2 (11:01)
[2020-07-26] MEDS ORDERED: *HR* Dextrose 50 % in Water (Vial) 50 ML VIAL IVP PRN (11:01)
[2020-07-26] MEDS ORDERED: D5% in Water 1,000 ML IVC PRN (11:01)
[2020-07-26] MEDS ORDERED: Isovue-370 500 ML BOTTLE IVP ONE (11:05)
[2020-07-26] MEDS ORDERED: Ipratropium/Albuterol Neb 3 ML IH PRN (11:29)
[2020-07-26 11:31] LABS: Adenovirus Not Detected (Not Detect); Coronavirus 229E Not Detected (Not Detect); Coronavirus HKU1 Not Detected (Not Detect); Coronavirus NL63 Not Detected (Not Detect)
[2020-07-26 11:32] LABS: Bordetella Pertussis Not Detected (Not Detect); Chlamydophila pneumoniae Not Detected (Not Detect); Coronavirus OC43 Not Detected (Not Detect); Human Metapneumovirus Not Detected (Not Detect); Human Rhinovirus/Enterovirus Not Detected (Not Detect); Influenza A Subtype 2009 H1 Not Detected (Not Detect); Influenza B Not Detected (Not Detect); Mycoplasma pneumoniae Not Detected (Not Detect); Parainfluenza Virus 1 Not Detected (Not Detect); Parainfluenza Virus 2 Not Detected (Not Detect); Parainfluenza Virus 3 Not Detected (Not Detect); Parainfluenza Virus 4 Not Detected (Not Detect); Respiratory Syncytial Virus Not Detected (Not Detect); SARS-CoV-2 Not Detected (Not Detect)
[2020-07-26] MEDS ORDERED: Gadolinium Contrast Agent (WT Based) IV PRN (11:35)
[2020-07-26] MEDS: Insulin LISPRO 300 UNITS/3 ML VIAL SQ SCH ×2 (13:12→18:02)
[2020-07-26 13:33] LABS: Basophils % 0.4 %; Lymphocytes % 13.6 %
[2020-07-26 13:35] LABS: Eosinophils % 0.5 %; Hematocrit 28.2 % (37.5-50.1); Hemoglobin 7.7 g/dL (12.9-16.9); Immature Granulocytes % 0.5 % (0-4); Mean Corpuscular HGB Conc 27.3 g/dL (31.6-35.5); Mean Corpuscular Hemoglobin 24.3 pg (28.0-33.3); Mean Platelet Volume 9.4 fL (9.4-12.4); Monocytes # 0.5 K/mcL (0.0-1.3); Platelet Count 254 K/mcL (140-400); Red Blood Count 3.17 M/mcL (4.19-5.50); Red Cell Distribution Width 14.8 % (11.5-14.5); White Blood Count 7.6 K/mcL (4.3-11.1)
[2020-07-26 13:38] LABS: INR 1.1; Prothrombin Time 12.9 Seconds (9.4-12.1)
[2020-07-26 13:41] LABS: Activated Partial Thrombo Time 28.8 Seconds (26.0-36.0)
[2020-07-26 14:04] LABS: Hypochromasia Present (Not Present); Platelet Estimate Normal (Normal)
[2020-07-26 14:10] LABS: ABG Base Excess 17 mEq/L (-2 to 3); ABG HCO3 47 mEq/L (21-27); ABG Oxygen Saturation 88 % (95-98); ABG PCO2 107 mmHg (35-45); ABG PH 7.26 pH Units (7.32-7.45); ABG PO2 69 mmHg (85-104); ABG TCO2 > 50 mEq/L (20-26)
[2020-07-26 14:17] LABS: Acetaminophen < 10 mcg/mL (10-20); BUN/Creatinine Ratio 36 (6-26); Blood Urea Nitrogen 24 mg/dL (8-23); Calcium 8.5 mg/dL (8.6-10.3); Carbon Dioxide 37 mEq/L (23-29); Chloride 97 mEq/L (98-107); Ethanol < 10 mg/dL (Less than 10); Glucose 135 mg/dL (70-105); Magnesium 1.9 mg/dL (1.6-2.6); Osmolality,Calculated 298 (280-300); Phosphorous 3.7 mg/dL (2.7-4.5); Potassium 4.1 mEq/L (3.5-5.1); Salicylate < 2.5 mg/dL (15.0-30.0); Sodium 141 mEq/L (136-145); Thyroid Stimulating Hormone 0.725 mcIU/mL (0.340-5.600); Troponin I < 0.03 ng/mL (< 0.04); eGFR For African Americans > 60 (> 60); eGFR For Non-African Americans > 60 (> 60)
[2020-07-26] MEDS: levoFLOXacin 750 MG/150 ML 750 MG/150 ML BAG IVPB SCH (14:17)
[2020-07-26 17:22] LABS: ABG Base Excess 14 mEq/L (-2 to 3); ABG HCO3 43 mEq/L (21-27); ABG Oxygen Saturation 98 % (95-98); ABG PCO2 78 mmHg (35-45); ABG PH 7.35 pH Units (7.32-7.45); ABG PO2 118 mmHg (85-104); ABG TCO2 45 mEq/L (20-26)
[2020-07-26 17:28] LABS: Hematocrit 32.1 % (37.5-50.1); Hemoglobin 8.7 g/dL (12.9-16.9)
[2020-07-26 22:22] LABS: Bilirubin,Urine Negative (Negative); Blood,Urine Moderate (Negative); Clarity,Urine Clear (Clear); Color,Urine Yellow (Yellow); Glucose,Urine (UA) Normal (Normal); Ketones,Urine Negative (Negative); Leukocyte Esterase,Urine Negative (Negative); Nitrite,Urine Negative (Negative); Protein,Urine 30 mg/dL (Neg-Trace); Specific Gravity,Urine >= 1.030 (1.010-1.025); Urobilinogen,Urine Normal (Normal)
[2020-07-26 22:25] LABS: Mucus,Urine Few per lpf (None-Few); RBC,Urine 50-100 per hpf (0-3); WBC,Urine 0-3 per hpf (0-3)
[2020-07-26 22:27] LABS: Amphetamine Screen,Urine Negative ng/mL (Cutoff=1000); Barbiturate Screen,Urine Negative ng/mL (Cutoff=200); Benzodiazepines Screen,Urine Negative ng/mL (Cutoff=200); Cannabinoid Screen,Urine Negative ng/mL (Cutoff = 50); Cocaine Screen,Urine Negative ng/mL (Cutoff= 300); Opiate Screen,Urine Positive ng/mL (Cutoff=300); Phencyclidine Screen,Urine Negative ng/mL (Cutoff=25)
[2020-07-27] MEDS: Insulin LISPRO 300 UNITS/3 ML VIAL SQ SCH ×4 (00:50→17:43)
[2020-07-27 03:37] LABS: ABG Base Excess 14 mEq/L (-2 to 3); ABG HCO3 44 mEq/L (21-27); ABG Oxygen Saturation 98 % (95-98); ABG PCO2 89 mmHg (35-45); ABG PO2 118 mmHg (85-104); ABG TCO2 46 mEq/L (20-26)
[2020-07-27 03:44] LABS: Basophils % 0.4 %; Hemoglobin 8.5 g/dL (12.9-16.9)
[2020-07-27 03:46] LABS: Basophils # 0.1 K/mcL (0.0-0.2); Eosinophils % 0.3 %; Hematocrit 30.9 % (37.5-50.1); Immature Granulocytes % 0.7 % (0-4); Lymphocytes % 8.4 %; Mean Corpuscular HGB Conc 27.5 g/dL (31.6-35.5); Mean Corpuscular Hemoglobin 24.8 pg (28.0-33.3); Mean Corpuscular Volume 90.1 fL (83.0-100.0); Mean Platelet Volume 9.7 fL (9.4-12.4); Monocytes # 0.8 K/mcL (0.0-1.3); Monocytes % 6.6 %; Neutrophils # 9.7 K/mcL (1.6-8.9); Platelet Count 329 K/mcL (140-400); Red Blood Count 3.43 M/mcL (4.19-5.50); Red Cell Distribution Width 14.8 % (11.5-14.5); Segmented Neutrophils % 83.6 %; White Blood Count 11.6 K/mcL (4.3-11.1)
[2020-07-27 03:50] LABS: BUN/Creatinine Ratio 36 (6-26); Blood Urea Nitrogen 25 mg/dL (8-23); Calcium 8.8 mg/dL (8.6-10.3); Carbon Dioxide 38 mEq/L (23-29); Chloride 100 mEq/L (98-107); Glucose 115 mg/dL (70-105); Osmolality,Calculated 307 (280-300); Potassium 4.2 mEq/L (3.5-5.1); Sodium 146 mEq/L (136-145); eGFR For African Americans > 60 (> 60); eGFR For Non-African Americans > 60 (> 60)
[2020-07-27 05:22] LABS: Hypochromasia Present (Not Present)
[2020-07-27 05:23] LABS: Platelet Estimate Normal (Normal)
[2020-07-27] MEDS: levoFLOXacin 750 MG/150 ML 750 MG/150 ML BAG IVPB SCH (08:17)
[2020-07-27] MEDS ORDERED: Haloperidol Lactate 5 MG/ML VIAL IVP ONE ×2 (08:38→15:35)
[2020-07-27] MEDS ORDERED: *HR* Labetalol 20 MG/4 ML SYRINGE IVP PRN (11:02)
[2020-07-27] MEDS: Pantoprazole 40 MG VIAL IVP SCH (11:45)
[2020-07-27] MEDS: MethylPREDNISolone 40 MG/ML VIAL IVP SCH ×2 (11:45→23:24)
[2020-07-27] MEDS: Ipratropium/Albuterol Neb 3 ML IH SCH ×4 (11:57→23:05)
[2020-07-27 12:06] LABS: ABG Base Excess 16 mEq/L (-2 to 3); ABG HCO3 46 mEq/L (21-27); ABG Oxygen Saturation 97 % (95-98); ABG PCO2 98 mmHg (35-45); ABG PH 7.28 pH Units (7.32-7.45); ABG PO2 116 mmHg (85-104); ABG TCO2 49 mEq/L (20-26)
[2020-07-27] MEDS ORDERED: Vancomycin 1,750 MG/517.5 ML IV.SOLN IVPB SCH (13:00)
[2020-07-27] MEDS: Vancomycin 1,750 MG/517.5 ML IV.SOLN IVPB SCH (13:38)
[2020-07-27 15:27] LABS: ABG Base Excess 15 mEq/L (-2 to 3); ABG HCO3 44 mEq/L (21-27); ABG Oxygen Saturation 93 % (95-98); ABG PCO2 94 mmHg (35-45); ABG PH 7.28 pH Units (7.32-7.45); ABG PO2 83 mmHg (85-104); ABG TCO2 47 mEq/L (20-26)
[2020-07-27] MEDS: Piperacillin/Tazobactam 3.375 GM in 0.9 % Sodium Chloride Mini Bag 100 ML IVPB SCH (16:04)
[2020-07-27 18:33] LABS: ABG Base Excess 11 mEq/L (-2 to 3); ABG HCO3 39 mEq/L (21-27); ABG Oxygen Saturation 96 % (95-98); ABG PCO2 77 mmHg (35-45); ABG PH 7.32 pH Units (7.32-7.45); ABG PO2 91 mmHg (85-104); ABG TCO2 42 mEq/L (20-26)
[2020-07-27] MEDS: Dexmedetomidine HCl 400 MCG/100 ML MLS IVC SCH (18:45)
[2020-07-27] MEDS: Lactulose Oral Soln 20 GM/30 ML UDC PO SCH (20:16)
[2020-07-28] MEDS: Dexmedetomidine HCl 400 MCG/100 ML MLS IVC SCH ×4 (01:18→20:41)
[2020-07-28] MEDS: Insulin LISPRO 300 UNITS/3 ML VIAL SQ SCH ×6 (01:25→23:59)
[2020-07-28] MEDS: Vancomycin 1,750 MG/517.5 ML IV.SOLN IVPB SCH ×2 (02:01→13:11)
[2020-07-28] MEDS: Piperacillin/Tazobactam 3.375 GM in 0.9 % Sodium Chloride Mini Bag 100 ML IVPB SCH ×4 (02:02→23:59)
[2020-07-28] MEDS: Ipratropium/Albuterol Neb 3 ML IH SCH ×6 (03:55→23:20)
[2020-07-28] MEDS: *HR* Enoxaparin 40 MG/0.4 ML SYRINGE SQ SCH (05:45)
[2020-07-28] MEDS: Pantoprazole 40 MG VIAL IVP SCH (08:16)
[2020-07-28] MEDS: Lactulose Oral Soln 20 GM/30 ML UDC PO SCH ×2 (08:16→21:24)
[2020-07-28 08:53] LABS: Hemoglobin 7.7 g/dL (12.9-16.9)
[2020-07-28 08:55] LABS: Hematocrit 26.9 % (37.5-50.1); Immature Granulocytes % 0.5 % (0-4); Lymphocytes # 0.6 K/mcL (0.6-4.6); Lymphocytes % 10.1 %; Mean Corpuscular HGB Conc 28.6 g/dL (31.6-35.5); Mean Corpuscular Hemoglobin 24.8 pg (28.0-33.3); Mean Corpuscular Volume 86.8 fL (83.0-100.0); Mean Platelet Volume 9.6 fL (9.4-12.4); Monocytes # 0.3 K/mcL (0.0-1.3); Monocytes % 4.3 %; Neutrophils # 5.3 K/mcL (1.6-8.9); Platelet Count 255 K/mcL (140-400); Red Cell Distribution Width 14.3 % (11.5-14.5); Segmented Neutrophils % 85.1 %; White Blood Count 6.2 K/mcL (4.3-11.1)
[2020-07-28 09:17] LABS: Alanine Aminotransferase 4 Units/L (7-52); Albumin 3.1 g/dL (3.5-5.7); Albumin/Globulin Ratio 1.1 (1.1-2.2); Alkaline Phosphatase 51 Units/L (34-104); Aspartate Amino Transferase 13 Units/L (13-39); BUN/Creatinine Ratio 40 (6-26); Bilirubin,Total 0.4 mg/dL (0.3-1.0); Blood Urea Nitrogen 27 mg/dL (8-23); Calcium 8.9 mg/dL (8.6-10.3); Carbon Dioxide 41 mEq/L (23-29); Chloride 101 mEq/L (98-107); Globulin 2.8 g/dL (2.4-3.5); Glucose 233 mg/dL (70-105); Osmolality,Calculated 313 (280-300); Sodium 145 mEq/L (136-145); Total Protein 5.9 g/dL (6.4-8.9); eGFR For African Americans > 60 (> 60); eGFR For Non-African Americans > 60 (> 60)
[2020-07-28 09:58] LABS: Hypochromasia Present (Not Present); Platelet Estimate Normal (Normal)
[2020-07-28] MEDS: MethylPREDNISolone 40 MG/ML VIAL IVP SCH ×2 (09:59→21:50)
[2020-07-28 10:00] LABS: Ovalocytes 1+ (Not Present)
[2020-07-28 10:01] LABS: Anisocytosis 1+ (Not Present)
[2020-07-28 11:04] LABS: ABG Base Excess 15 mEq/L (-2 to 3); ABG HCO3 42 mEq/L (21-27); ABG Oxygen Saturation 90 % (95-98); ABG PCO2 69 mmHg (35-45); ABG PH 7.39 pH Units (7.32-7.45); ABG PO2 63 mmHg (85-104); ABG TCO2 45 mEq/L (20-26)
[2020-07-28 16:41] LABS: Hematocrit 27.6 % (37.5-50.1); Hemoglobin 7.7 g/dL (12.9-16.9)
[2020-07-28] MEDS: Budesonide/Formoterol 160/4.5 1 PUFF INH IH SCH (19:46)
[2020-07-28] MEDS ORDERED: Acetaminophen IV 1,000 MG/100 ML INFUS..BTL IVPB ONE (22:48)
[2020-07-29] MEDS: Dexmedetomidine HCl 400 MCG/100 ML MLS IVC SCH ×4 (00:44→20:07)
[2020-07-29] MEDS: Vancomycin 1,750 MG/517.5 ML IV.SOLN IVPB SCH (01:14)
[2020-07-29 03:28] LABS: INR 1.3; Prothrombin Time 15.2 Seconds (9.4-12.1)
[2020-07-29 03:36] LABS: BUN/Creatinine Ratio 29 (6-26); Blood Urea Nitrogen 21 mg/dL (8-23); Calcium 8.4 mg/dL (8.6-10.3); Carbon Dioxide 38 mEq/L (23-29); Chloride 99 mEq/L (98-107); Glucose 283 mg/dL (70-105); Osmolality,Calculated 307 (280-300); Potassium 3.8 mEq/L (3.5-5.1); Sodium 142 mEq/L (136-145); eGFR For African Americans > 60 (> 60); eGFR For Non-African Americans > 60 (> 60)
[2020-07-29 03:53] LABS: Hematocrit 28.5 % (37.5-50.1); Hemoglobin 8.1 g/dL (12.9-16.9); Immature Granulocytes % 0.2 % (0-4); Lymphocytes # 0.6 K/mcL (0.6-4.6); Lymphocytes % 11.6 %; Mean Corpuscular HGB Conc 28.4 g/dL (31.6-35.5); Mean Corpuscular Hemoglobin 24.7 pg (28.0-33.3); Mean Corpuscular Volume 86.9 fL (83.0-100.0); Mean Platelet Volume 9.6 fL (9.4-12.4); Monocytes # 0.2 K/mcL (0.0-1.3); Neutrophils # 4.2 K/mcL (1.6-8.9); Platelet Count 255 K/mcL (140-400); Red Blood Count 3.28 M/mcL (4.19-5.50); Red Cell Distribution Width 14.1 % (11.5-14.5); Segmented Neutrophils % 84.2 %
[2020-07-29 04:01] LABS: ABG Base Excess 13 mEq/L (-2 to 3); ABG HCO3 39 mEq/L (21-27); ABG Oxygen Saturation 99 % (95-98); ABG PCO2 59 mmHg (35-45); ABG PH 7.42 pH Units (7.32-7.45); ABG PO2 148 mmHg (85-104); ABG TCO2 40 mEq/L (20-26)
[2020-07-29] MEDS: Ipratropium/Albuterol Neb 3 ML IH SCH ×5 (04:02→20:13)
[2020-07-29 04:29] LABS: Anisocytosis 1+ (Not Present); Hypochromasia Present (Not Present); Platelet Estimate Normal (Normal)
[2020-07-29 04:54] LABS: Hepatitis B Surface Antigen Nonreactive (Nonreactive)
[2020-07-29 05:24] LABS: HIV-1&2 Antibody & p24 Ag Nonreactive (Nonreactive)
[2020-07-29] MEDS: *HR* Enoxaparin 40 MG/0.4 ML SYRINGE SQ SCH (05:52)
[2020-07-29] MEDS: Insulin LISPRO 300 UNITS/3 ML VIAL SQ SCH ×3 (05:53→17:38)
[2020-07-29 06:30] LABS: Hepatitis C Virus Antibody Reactive (Nonreactive)
[2020-07-29] MEDS: Budesonide/Formoterol 160/4.5 1 PUFF INH IH SCH ×2 (07:21→20:13)
[2020-07-29] MEDS: Piperacillin/Tazobactam 3.375 GM in 0.9 % Sodium Chloride Mini Bag 100 ML IVPB SCH ×2 (08:07→15:19)
[2020-07-29] MEDS: Aspirin 81 MG TAB.CHEW PO SCH (08:09)
[2020-07-29] MEDS: Lactulose Oral Soln 20 GM/30 ML UDC PO SCH ×2 (08:09→20:19)
[2020-07-29] MEDS: Pantoprazole 40 MG VIAL IVP SCH (08:10)
[2020-07-29] MEDS: MethylPREDNISolone 40 MG/ML VIAL IVP SCH ×2 (08:20→20:19)
[2020-07-29 09:47] LABS: Adenovirus Not Detected (Not Detect); Bordetella Pertussis Not Detected (Not Detect); Chlamydophila pneumoniae Not Detected (Not Detect); Coronavirus 229E Not Detected (Not Detect); Coronavirus HKU1 Not Detected (Not Detect); Coronavirus NL63 Not Detected (Not Detect); Coronavirus OC43 Not Detected (Not Detect); Human Metapneumovirus Not Detected (Not Detect); Human Rhinovirus/Enterovirus Not Detected (Not Detect); Influenza A Subtype 2009 H1 Not Detected (Not Detect); Influenza B Not Detected (Not Detect); Mycoplasma pneumoniae Not Detected (Not Detect); Parainfluenza Virus 1 Not Detected (Not Detect); Parainfluenza Virus 2 Not Detected (Not Detect); Parainfluenza Virus 3 Not Detected (Not Detect); Parainfluenza Virus 4 Not Detected (Not Detect); Respiratory Syncytial Virus Not Detected (Not Detect); SARS-CoV-2 Not Detected (Not Detect)
[2020-07-29] MEDS: hydrOXYzine pamoate 25 MG CAPSULE PO PRN (20:03)
[2020-07-29] MEDS: Insulin DETEMIR 100 UNIT/ML X5UNITS SQ SCH (20:20)
[2020-07-29] MEDS ORDERED: Insulin DETEMIR 100 UNIT/ML X5UNITS SQ SCH (21:00)
[2020-07-30] MEDS: Ipratropium/Albuterol Neb 3 ML IH SCH ×7 (00:15→23:59)
[2020-07-30] MEDS: Piperacillin/Tazobactam 3.375 GM in 0.9 % Sodium Chloride Mini Bag 100 ML IVPB SCH ×3 (00:58→15:58)
[2020-07-30 02:10] LABS: Hematocrit 28.7 % (37.5-50.1); Hemoglobin 8.4 g/dL (12.9-16.9); Immature Granulocytes % 0.3 % (0-4); Lymphocytes # 0.4 K/mcL (0.6-4.6); Lymphocytes % 11.5 %; Mean Corpuscular HGB Conc 29.3 g/dL (31.6-35.5); Mean Corpuscular Hemoglobin 24.3 pg (28.0-33.3); Mean Corpuscular Volume 83.2 fL (83.0-100.0); Mean Platelet Volume 9.4 fL (9.4-12.4); Monocytes # 0.1 K/mcL (0.0-1.3); Monocytes % 2.7 %; Neutrophils # 3.1 K/mcL (1.6-8.9); Platelet Count 228 K/mcL (140-400); Red Blood Count 3.45 M/mcL (4.19-5.50); Red Cell Distribution Width 13.9 % (11.5-14.5); Segmented Neutrophils % 85.5 %; White Blood Count 3.7 K/mcL (4.3-11.1)
[2020-07-30 02:31] LABS: BUN/Creatinine Ratio 25 (6-26); Blood Urea Nitrogen 17 mg/dL (8-23); Calcium 8.6 mg/dL (8.6-10.3); Carbon Dioxide 37 mEq/L (23-29); Chloride 94 mEq/L (98-107); Glucose 264 mg/dL (70-105); Magnesium 1.3 mg/dL (1.6-2.6); Osmolality,Calculated 297 (280-300); Potassium 3.5 mEq/L (3.5-5.1); Sodium 138 mEq/L (136-145); eGFR For African Americans > 60 (> 60); eGFR For Non-African Americans > 60 (> 60)
[2020-07-30] MEDS ORDERED: Ketorolac 30 MG/ML VIAL IVP ONE (06:34)
[2020-07-30] MEDS: Budesonide/Formoterol 160/4.5 1 PUFF INH IH SCH ×2 (07:17→19:48)
[2020-07-30] MEDS: Furosemide 40 MG TABLET PO SCH (08:07)
[2020-07-30] MEDS: Lactulose Oral Soln 20 GM/30 ML UDC PO SCH ×2 (08:07→20:22)
[2020-07-30] MEDS: Aspirin 81 MG TAB.CHEW PO SCH (08:07)
[2020-07-30] MEDS: MethylPREDNISolone 40 MG/ML VIAL IVP SCH (08:19)
[2020-07-30] MEDS: Insulin DETEMIR 100 UNIT/ML X5UNITS SQ SCH ×2 (08:19→20:21)
[2020-07-30] MEDS: Insulin LISPRO 300 UNITS/3 ML VIAL SQ SCH ×3 (08:22→16:42)
[2020-07-30] MEDS: *HR* Buprenorphine HCl 2 MG SUBLINGUAL TABLET SL SCH ×2 (10:00→17:17)
[2020-07-30] MEDS: levETIRAcetam 250 MG TABLET PO SCH (20:21)
[2020-07-30 22:54] LABS: CK-MB (CK isoenzymes) 0 % (0-4); CK-MM (CK-isoenzymes) 100 % (96-100)
[2020-07-31] MEDS: Piperacillin/Tazobactam 3.375 GM in 0.9 % Sodium Chloride Mini Bag 100 ML IVPB SCH ×4 (00:23→23:51)
[2020-07-31 01:42] LABS: Basophils % 0.2 %; Eosinophils # 0.1 K/mcL (0.0-0.6); Eosinophils % 0.8 %; Hematocrit 30.6 % (37.5-50.1); Immature Granulocytes % 0.3 % (0-4); Lymphocytes # 1.4 K/mcL (0.6-4.6); Lymphocytes % 21.1 %; Mean Corpuscular HGB Conc 29.4 g/dL (31.6-35.5); Mean Corpuscular Hemoglobin 24.4 pg (28.0-33.3); Mean Corpuscular Volume 82.9 fL (83.0-100.0); Mean Platelet Volume 9.7 fL (9.4-12.4); Monocytes # 0.4 K/mcL (0.0-1.3); Monocytes % 5.3 %; Platelet Count 260 K/mcL (140-400); Red Blood Count 3.69 M/mcL (4.19-5.50); Red Cell Distribution Width 14.4 % (11.5-14.5); Segmented Neutrophils % 72.3 %
[2020-07-31 01:47] LABS: Neutrophils # 4.8 K/mcL (1.6-8.9); White Blood Count 6.6 K/mcL (4.3-11.1)
[2020-07-31 02:08] LABS: BUN/Creatinine Ratio 33 (6-26); Blood Urea Nitrogen 25 mg/dL (8-23); Calcium 8.5 mg/dL (8.6-10.3); Carbon Dioxide 34 mEq/L (23-29); Chloride 96 mEq/L (98-107); Glucose 242 mg/dL (70-105); Magnesium 1.6 mg/dL (1.6-2.6); Osmolality,Calculated 300 (280-300); Sodium 139 mEq/L (136-145); eGFR For African Americans > 60 (> 60); eGFR For Non-African Americans > 60 (> 60)
[2020-07-31] MEDS: hydrOXYzine pamoate 25 MG CAPSULE PO PRN (03:30)
[2020-07-31] MEDS: Ipratropium/Albuterol Neb 3 ML IH SCH ×6 (03:50→23:56)
[2020-07-31] MEDS: *HR* Enoxaparin 40 MG/0.4 ML SYRINGE SQ SCH (06:34)
[2020-07-31] MEDS: Budesonide/Formoterol 160/4.5 1 PUFF INH IH SCH ×2 (07:18→20:13)
[2020-07-31 08:01] LABS: CK Total (Ck Isoenzymes) 42 U/L (20-200); CK-BB (CK isoenzymes) 0 % (0-0)
[2020-07-31] MEDS: Furosemide 40 MG TABLET PO SCH (08:18)
[2020-07-31] MEDS: Aspirin 81 MG TAB.CHEW PO SCH (08:18)
[2020-07-31] MEDS: *HR* Buprenorphine HCl 2 MG SUBLINGUAL TABLET SL SCH ×2 (08:19→17:58)
[2020-07-31] MEDS: Lactulose Oral Soln 20 GM/30 ML UDC PO SCH ×2 (08:19→21:38)
[2020-07-31] MEDS: levETIRAcetam 250 MG TABLET PO SCH ×2 (08:19→21:37)
[2020-07-31] MEDS: Insulin LISPRO 300 UNITS/3 ML VIAL SQ SCH ×3 (08:20→18:01)
[2020-07-31] MEDS: Insulin DETEMIR 100 UNIT/ML X5UNITS SQ SCH ×2 (08:20→21:44)
[2020-07-31] MEDS ORDERED: predniSONE 20 MG TABLET PO SCH (09:00)
[2020-08-01] MEDS: Ipratropium/Albuterol Neb 3 ML IH SCH ×3 (03:23→11:10)
[2020-08-01 03:58] LABS: Basophils % 0.1 %; Eosinophils # 0.1 K/mcL (0.0-0.6); Eosinophils % 1.3 %; Hematocrit 29.1 % (37.5-50.1); Hemoglobin 8.5 g/dL (12.9-16.9); Immature Granulocytes % 0.3 % (0-4); Lymphocytes # 1.5 K/mcL (0.6-4.6); Lymphocytes % 19.4 %; Mean Corpuscular HGB Conc 29.2 g/dL (31.6-35.5); Mean Corpuscular Hemoglobin 24.1 pg (28.0-33.3); Mean Corpuscular Volume 82.7 fL (83.0-100.0); Mean Platelet Volume 9.7 fL (9.4-12.4); Monocytes # 0.4 K/mcL (0.0-1.3); Monocytes % 5.3 %; Neutrophils # 5.7 K/mcL (1.6-8.9); Platelet Count 260 K/mcL (140-400); Red Blood Count 3.52 M/mcL (4.19-5.50); Red Cell Distribution Width 14.5 % (11.5-14.5); Segmented Neutrophils % 73.6 %; White Blood Count 7.7 K/mcL (4.3-11.1)
[2020-08-01 04:18] LABS: BUN/Creatinine Ratio 34 (6-26); Blood Urea Nitrogen 27 mg/dL (8-23); Calcium 8.5 mg/dL (8.6-10.3); Carbon Dioxide 37 mEq/L (23-29); Chloride 98 mEq/L (98-107); Glucose 204 mg/dL (70-105); Magnesium 1.6 mg/dL (1.6-2.6); Osmolality,Calculated 301 (280-300); Potassium 3.4 mEq/L (3.5-5.1); Sodium 140 mEq/L (136-145); eGFR For African Americans > 60 (> 60); eGFR For Non-African Americans > 60 (> 60)
[2020-08-01] MEDS: *HR* Enoxaparin 40 MG/0.4 ML SYRINGE SQ SCH (05:07)
[2020-08-01] MEDS: Budesonide/Formoterol 160/4.5 1 PUFF INH IH SCH (08:09)
[2020-08-01] MEDS ORDERED: Piperacillin/Tazobactam 3.375 GM VIAL ONE (08:29)
[2020-08-01] MEDS ORDERED: predniSONE 20 MG TABLET PO SCH (09:00)
[2020-08-01] MEDS: Aspirin 81 MG TAB.CHEW PO SCH (09:10)
[2020-08-01] MEDS: Furosemide 40 MG TABLET PO SCH (09:10)
[2020-08-01] MEDS: *HR* Buprenorphine HCl 2 MG SUBLINGUAL TABLET SL SCH (09:10)
[2020-08-01] MEDS: levETIRAcetam 250 MG TABLET PO SCH (09:15)
[2020-08-01] MEDS: Lactulose Oral Soln 20 GM/30 ML UDC PO SCH (09:15)
[2020-08-01] MEDS: Insulin LISPRO 300 UNITS/3 ML VIAL SQ SCH ×2 (09:16→12:16)
[2020-08-01] MEDS: Piperacillin/Tazobactam 3.375 GM in 0.9 % Sodium Chloride Mini Bag 100 ML IVPB SCH (09:17)
[2020-08-01] MEDS: Insulin DETEMIR 100 UNIT/ML X5UNITS SQ SCH (10:06)
[2020-08-01 14:18] VITALS: BP 114/71
== END 2020-08-01 15:42 | disposition home health service (06) | DRG 871 ==
LOC: CDU → SUATTDRO 09:37 → 2ANU 12:22 → SUATTDRO 07-27 11:34 → 2NNU 07-27 19:32 → 3NENU 07-31 09:10
PROVIDERS: ADMIT Internal Medicine; ATTEND Internal Medicine

== ENCOUNTER 2021-05-01 15:36 | Inpatient (IN) ==
[2021-05-01] MEDS ORDERED: Acetaminophen 325 MG TABLET PO PRN (19:49)
[2021-05-01] MEDS ORDERED: Ondansetron 4 MG/2 ML VIAL IVP PRN (19:49)
[2021-05-01] MEDS ORDERED: Naloxone 0.4 MG/ML INJ IVP PRN (19:49)
[2021-05-01] MEDS ORDERED: D5% in Water 1,000 ML IVC PRN (19:54)
[2021-05-01] MEDS ORDERED: Dextrose Gel 15 GM/37.5 ML TUBE PO PRN ×2 (19:54)
[2021-05-01] MEDS ORDERED: *HR* Dextrose 50 % in Water (Vial) 50 ML VIAL IVP PRN (19:54)
[2021-05-01 20:48] LABS: ABG Base Excess 22 mEq/L (-2 to 3); ABG HCO3 51 mEq/L (21-27); ABG Oxygen Saturation 94 % (95-98); ABG PCO2 93 mmHg (35-45); ABG PH 7.35 pH Units (7.32-7.45); ABG PO2 81 mmHg (85-104); ABG TCO2 > 50 mEq/L (20-26)
[2021-05-01] MEDS: Insulin LISPRO 300 UNITS/3 ML VIAL SUBQ SCH ×2 (21:06→21:54)
[2021-05-01] MEDS: Azithromycin 500 MG in 0.9 % Sodium Chloride 250 ML IVPB SCH (21:09)
[2021-05-02] MEDS ORDERED: Sennosides/Docusate Sodium TABLET PO PRN (00:47)
[2021-05-02] MEDS ORDERED: Fluticasone Propionate Nasal 50 MCG/SPRAY BOTTLE NS PRN (00:47)
[2021-05-02] MEDS: *HR* OxyCODONE Immed Rel 5 MG TABLET PO PRN (01:12)
[2021-05-02 01:59] LABS: Basophils % 0.2 %; Eosinophils % 0.5 %; Hematocrit 25.8 % (37.5-50.1); Hemoglobin 7.6 g/dL (12.9-16.9); Immature Granulocytes % 0.5 % (0-4); Lymphocytes # 0.9 K/mcL (0.6-4.6); Lymphocytes % 14.9 %; Mean Corpuscular HGB Conc 29.5 g/dL (31.6-35.5); Mean Corpuscular Hemoglobin 26.2 pg (28.0-33.3); Mean Platelet Volume 10.2 fL (9.4-12.4); Monocytes # 0.5 K/mcL (0.0-1.3); Monocytes % 7.6 %; Neutrophils # 4.5 K/mcL (1.6-8.9); Platelet Count 188 K/mcL (140-400); Red Cell Distribution Width 14.1 % (11.5-14.5); Segmented Neutrophils % 76.3 %; White Blood Count 5.9 K/mcL (4.3-11.1)
[2021-05-02 02:03] LABS: INR 1.2; Prothrombin Time 13.3 Seconds (9.4-12.1)
[2021-05-02 02:36] LABS: Estimated Average Glucose 137 mg/dl; Hemoglobin A1C 6.4 %
[2021-05-02 02:42] LABS: BUN/Creatinine Ratio 29 (6-26); Blood Urea Nitrogen 18 mg/dL (8-23); Calcium 8.5 mg/dL (8.6-10.3); Carbon Dioxide > 45 mEq/L (23-29); Chloride 89 mEq/L (98-107); Glucose 147 mg/dL (70-105); Magnesium 1.4 mg/dL (1.6-2.6); Osmolality,Calculated 295 (280-300); Potassium 3.9 mEq/L (3.5-5.1); Sodium 140 mEq/L (136-145); eGFR For African Americans > 60 (> 60); eGFR For Non-African Americans > 60 (> 60)
[2021-05-02] MEDS ORDERED: Haloperidol Lactate 5 MG/ML VIAL IVP ONE (05:40)
[2021-05-02] MEDS ORDERED: Insulin DETEMIR 100 UNIT/ML X5UNITS SUBQ SCH (09:00)
[2021-05-02] MEDS ORDERED: *HR* LORazepam 2 MG/ML VIAL IVP ONE (09:18)
[2021-05-02] MEDS: Insulin LISPRO 300 UNITS/3 ML VIAL SUBQ SCH ×4 (09:25→22:15)
[2021-05-02] MEDS: Azithromycin 500 MG in 0.9 % Sodium Chloride 250 ML IVPB SCH (09:26)
[2021-05-02] MEDS: Aspirin 81 MG TAB.CHEW PO SCH (09:27)
[2021-05-02] MEDS: Lactulose Oral Soln 20 GM/30 ML UDC PO SCH ×4 (09:27→21:00)
[2021-05-02] MEDS: Furosemide 40 MG TABLET PO SCH (09:27)
[2021-05-02] MEDS: *HR* Enoxaparin 40 MG/0.4 ML SYRINGE SQ SCH (09:27)
[2021-05-02] MEDS: levETIRAcetam 250 MG TABLET PO SCH ×2 (09:27→20:50)
[2021-05-02 09:40] LABS: VBG HCO3 47 mEq/L (21-27); VBG PCO2 84 mmHg (41-51); VBG PH 7.36 pH Units (7.32-7.42); VBG PO2 68 mmHg (25-50)
[2021-05-02] MEDS: Dexmedetomidine HCl 400 MCG/100 ML MLS IVC SCH ×3 (11:23→19:49)
[2021-05-02] MEDS ORDERED: Isovue-370 500 ML BOTTLE IVP ONE (11:30)
[2021-05-02 13:52] LABS: Hematocrit 25.9 % (37.5-50.1); Hemoglobin 7.6 g/dL (12.9-16.9)
[2021-05-02 18:50] LABS: ABG Base Excess 26 mEq/L (-2 to 3); ABG HCO3 52 mEq/L (21-27); ABG Oxygen Saturation 92 % (95-98); ABG PCO2 69 mmHg (35-45); ABG PH 7.49 pH Units (7.32-7.45); ABG PO2 63 mmHg (85-104); ABG TCO2 > 50 mEq/L (20-26); Blood Gas Pressure Support 16 cm H2O
[2021-05-02] MEDS: Melatonin 3 MG TABLET PO SCH (21:00)
[2021-05-03 01:57] LABS: Basophils % 0.2 %; Eosinophils # 0.1 K/mcL (0.0-0.6); Eosinophils % 1.3 %; Hematocrit 23.2 % (37.5-50.1); Hemoglobin 6.9 g/dL (12.9-16.9); Immature Granulocytes % 0.4 % (0-4); Lymphocytes # 1.1 K/mcL (0.6-4.6); Lymphocytes % 20.6 %; Mean Corpuscular HGB Conc 29.7 g/dL (31.6-35.5); Mean Corpuscular Hemoglobin 26.1 pg (28.0-33.3); Mean Corpuscular Volume 87.9 fL (83.0-100.0); Mean Platelet Volume 9.9 fL (9.4-12.4); Monocytes # 0.5 K/mcL (0.0-1.3); Neutrophils # 3.6 K/mcL (1.6-8.9); Platelet Count 177 K/mcL (140-400); Red Blood Count 2.64 M/mcL (4.19-5.50); Red Cell Distribution Width 14.1 % (11.5-14.5); Segmented Neutrophils % 68.5 %; White Blood Count 5.3 K/mcL (4.3-11.1)
[2021-05-03 02:18] LABS: Alanine Aminotransferase 17 Units/L (7-52); Albumin 3.1 g/dL (3.5-5.7); Albumin/Globulin Ratio 1.1 (1.1-2.2); Alkaline Phosphatase 58 Units/L (34-104); Aspartate Amino Transferase 25 Units/L (13-39); BUN/Creatinine Ratio 28 (6-26); Bilirubin,Direct 0.2 mg/dL (0.0-0.2); Bilirubin,Indirect 0.4 mg/dL (0.0-1.0); Bilirubin,Total 0.6 mg/dL (0.3-1.0); Blood Urea Nitrogen 18 mg/dL (8-23); Calcium 8.5 mg/dL (8.6-10.3); Carbon Dioxide 45 mEq/L (23-29); Chloride 90 mEq/L (98-107); Globulin 2.9 g/dL (2.4-3.5); Glucose 153 mg/dL (70-105); Osmolality,Calculated 293 (280-300); Potassium 3.5 mEq/L (3.5-5.1); Sodium 139 mEq/L (136-145); eGFR For African Americans > 60 (> 60); eGFR For Non-African Americans > 60 (> 60)
[2021-05-03] MEDS: Dexmedetomidine HCl 400 MCG/100 ML MLS IVC SCH ×4 (02:39→19:58)
[2021-05-03] MEDS: *HR* Enoxaparin 40 MG/0.4 ML SYRINGE SQ SCH (07:13)
[2021-05-03] MEDS: levETIRAcetam 250 MG TABLET PO SCH (07:13)
[2021-05-03] MEDS: Azithromycin 500 MG in 0.9 % Sodium Chloride 250 ML IVPB SCH (07:13)
[2021-05-03] MEDS: Furosemide 40 MG TABLET PO SCH (07:17)
[2021-05-03] MEDS: Lactulose Oral Soln 20 GM/30 ML UDC PO SCH ×4 (07:18→19:56)
[2021-05-03] MEDS: Pyridoxine (B-6) 50 MG TABLET PO SCH (07:18)
[2021-05-03] MEDS: Aspirin 81 MG TAB.CHEW PO SCH (07:18)
[2021-05-03] MEDS ORDERED: 0.9 % Sodium Chloride 250 ML IVC SCH (07:30)
[2021-05-03 08:15] LABS: ABG Base Excess 17 mEq/L (-2 to 3); ABG HCO3 44 mEq/L (21-27); ABG Oxygen Saturation 92 % (95-98); ABG PCO2 66 mmHg (35-45); ABG PH 7.43 pH Units (7.32-7.45); ABG PO2 64 mmHg (85-104); ABG TCO2 46 mEq/L (20-26); Blood Gas Pressure Support 6 cm H2O
[2021-05-03] MEDS ORDERED: NON-FORMULARY MEDICATION 1 EACH EACH (Lactulose [Enulose] 10 GM/15 ML Solution) PO SCH (09:00)
[2021-05-03] MEDS: *HR* OxyCODONE Immed Rel 5 MG TABLET PO PRN (11:56)
[2021-05-03] MEDS: Insulin LISPRO 300 UNITS/3 ML VIAL SUBQ SCH ×4 (12:02→21:52)
[2021-05-03] MEDS: Melatonin 3 MG TABLET PO SCH (19:57)
[2021-05-03] MEDS: Ipratropium/Albuterol Neb 3 ML IH PRN (20:20)
[2021-05-04] MEDS: Dexmedetomidine HCl 400 MCG/100 ML MLS IVC SCH ×2 (01:25→07:45)
[2021-05-04] MEDS: Ipratropium/Albuterol Neb 3 ML IH PRN (03:53)
[2021-05-04] MEDS: *HR* OxyCODONE Immed Rel 5 MG TABLET PO PRN ×3 (06:07→21:01)
[2021-05-04 06:25] LABS: VBG HCO3 47 mEq/L (21-27); VBG PCO2 73 mmHg (41-51); VBG PH 7.42 pH Units (7.32-7.42); VBG PO2 165 mmHg (25-50)
[2021-05-04 06:28] LABS: Basophils % 0.3 %; Eosinophils # 0.2 K/mcL (0.0-0.6); Eosinophils % 3.5 %; Hematocrit 26.9 % (37.5-50.1); Hemoglobin 8.3 g/dL (12.9-16.9); Immature Granulocytes % 0.3 % (0-4); Lymphocytes # 1.3 K/mcL (0.6-4.6); Lymphocytes % 19.7 %; Mean Corpuscular HGB Conc 30.9 g/dL (31.6-35.5); Mean Corpuscular Volume 87.6 fL (83.0-100.0); Monocytes # 0.6 K/mcL (0.0-1.3); Monocytes % 8.5 %; Neutrophils # 4.4 K/mcL (1.6-8.9); Platelet Count 179 K/mcL (140-400); Red Blood Count 3.07 M/mcL (4.19-5.50); Red Cell Distribution Width 14.3 % (11.5-14.5); Segmented Neutrophils % 67.7 %; White Blood Count 6.5 K/mcL (4.3-11.1)
[2021-05-04 07:12] LABS: BUN/Creatinine Ratio 32 (6-26); Blood Urea Nitrogen 20 mg/dL (8-23); Calcium 8.5 mg/dL (8.6-10.3); Carbon Dioxide 44 mEq/L (23-29); Chloride 91 mEq/L (98-107); Glucose 201 mg/dL (70-105); Osmolality,Calculated 296 (280-300); Potassium 3.6 mEq/L (3.5-5.1); Sodium 139 mEq/L (136-145); eGFR For African Americans > 60 (> 60); eGFR For Non-African Americans > 60 (> 60)
[2021-05-04] MEDS: levETIRAcetam 250 MG TABLET PO SCH (07:47)
[2021-05-04] MEDS: *HR* Enoxaparin 40 MG/0.4 ML SYRINGE SQ SCH (07:47)
[2021-05-04] MEDS: Lactulose Oral Soln 20 GM/30 ML UDC PO SCH ×4 (07:47→21:01)
[2021-05-04] MEDS: Insulin LISPRO 300 UNITS/3 ML VIAL SUBQ SCH ×4 (07:47→20:57)
[2021-05-04] MEDS: Furosemide 40 MG TABLET PO SCH (07:48)
[2021-05-04] MEDS: Pyridoxine (B-6) 50 MG TABLET PO SCH (07:48)
[2021-05-04] MEDS: Azithromycin 500 MG in 0.9 % Sodium Chloride 250 ML IVPB SCH (07:48)
[2021-05-04] MEDS: Aspirin 81 MG TAB.CHEW PO SCH (07:48)
[2021-05-04] MEDS ORDERED: Acetaminophen 325 MG TABLET PO PRN (15:08)
[2021-05-04] MEDS: Melatonin 3 MG TABLET PO SCH (21:02)
[2021-05-05] MEDS: *HR* OxyCODONE Immed Rel 5 MG TABLET PO PRN ×3 (03:19→20:22)
[2021-05-05 05:04] LABS: VBG HCO3 50 mEq/L (21-27); VBG PCO2 101 mmHg (41-51); VBG PH 7.31 pH Units (7.32-7.42); VBG PO2 98 mmHg (25-50)
[2021-05-05 05:07] LABS: Basophils % 0.5 %; Eosinophils # 0.1 K/mcL (0.0-0.6); Eosinophils % 1.4 %; Hematocrit 28.1 % (37.5-50.1); Hemoglobin 8.5 g/dL (12.9-16.9); Immature Granulocytes % 0.6 % (0-4); Lymphocytes # 0.9 K/mcL (0.6-4.6); Mean Corpuscular HGB Conc 30.2 g/dL (31.6-35.5); Mean Corpuscular Hemoglobin 27.3 pg (28.0-33.3); Mean Corpuscular Volume 90.4 fL (83.0-100.0); Mean Platelet Volume 9.5 fL (9.4-12.4); Monocytes # 0.7 K/mcL (0.0-1.3); Monocytes % 8.6 %; Neutrophils # 6.6 K/mcL (1.6-8.9); Platelet Count 250 K/mcL (140-400); Red Blood Count 3.11 M/mcL (4.19-5.50); Red Cell Distribution Width 14.6 % (11.5-14.5); Segmented Neutrophils % 77.9 %; White Blood Count 8.4 K/mcL (4.3-11.1)
[2021-05-05 05:28] LABS: Alanine Aminotransferase 15 Units/L (7-52); Albumin 3.3 g/dL (3.5-5.7); Alkaline Phosphatase 58 Units/L (34-104); Aspartate Amino Transferase 26 Units/L (13-39); BUN/Creatinine Ratio 23 (6-26); Bilirubin,Direct 0.4 mg/dL (0.0-0.2); Bilirubin,Indirect 0.7 mg/dL (0.0-1.0); Bilirubin,Total 1.1 mg/dL (0.3-1.0); Blood Urea Nitrogen 15 mg/dL (8-23); Calcium 8.7 mg/dL (8.6-10.3); Carbon Dioxide > 45 mEq/L (23-29); Chloride 91 mEq/L (98-107); Globulin 3.2 g/dL (2.4-3.5); Glucose 179 mg/dL (70-105); Magnesium 1.6 mg/dL (1.6-2.6); Osmolality,Calculated 299 (280-300); Potassium 3.8 mEq/L (3.5-5.1); Sodium 142 mEq/L (136-145); Total Protein 6.5 g/dL (6.4-8.9); eGFR For African Americans > 60 (> 60); eGFR For Non-African Americans > 60 (> 60)
[2021-05-05] MEDS: Lactulose Oral Soln 20 GM/30 ML UDC PO SCH ×4 (07:37→20:22)
[2021-05-05] MEDS: Metoprolol XL (24 HR) Succ 25 MG TAB.ER.24H PO SCH (07:37)
[2021-05-05] MEDS: Aspirin 81 MG TAB.CHEW PO SCH (07:37)
[2021-05-05] MEDS: levETIRAcetam 250 MG TABLET PO SCH (07:37)
[2021-05-05] MEDS: Pyridoxine (B-6) 50 MG TABLET PO SCH (07:37)
[2021-05-05] MEDS: Furosemide 40 MG TABLET PO SCH (07:37)
[2021-05-05] MEDS: Insulin LISPRO 300 UNITS/3 ML VIAL SUBQ SCH ×4 (07:38→20:14)
[2021-05-05] MEDS: *HR* Enoxaparin 40 MG/0.4 ML SYRINGE SQ SCH (07:38)
[2021-05-05] MEDS: Melatonin 3 MG TABLET PO SCH (20:22)
[2021-05-06 04:05] LABS: VBG HCO3 44 mEq/L (21-27); VBG PCO2 51 mmHg (41-51); VBG PH 7.55 pH Units (7.32-7.42); VBG PO2 109 mmHg (25-50)
[2021-05-06 04:23] LABS: BUN/Creatinine Ratio 28 (6-26); Blood Urea Nitrogen 16 mg/dL (8-23); Calcium 8.6 mg/dL (8.6-10.3); Carbon Dioxide 42 mEq/L (23-29); Chloride 93 mEq/L (98-107); Glucose 151 mg/dL (70-105); Magnesium 1.5 mg/dL (1.6-2.6); Osmolality,Calculated 296 (280-300); Potassium 4.2 mEq/L (3.5-5.1); Sodium 141 mEq/L (136-145); eGFR For African Americans > 60 (> 60); eGFR For Non-African Americans > 60 (> 60)
[2021-05-06 05:02] LABS: Basophils % 0.4 %; Eosinophils # 0.3 K/mcL (0.0-0.6); Eosinophils % 2.8 %; Hematocrit 30.9 % (37.5-50.1); Hemoglobin 8.9 g/dL (12.9-16.9); Immature Granulocytes % 0.4 % (0-4); Lymphocytes # 1.3 K/mcL (0.6-4.6); Lymphocytes % 14.4 %; Mean Corpuscular HGB Conc 28.8 g/dL (31.6-35.5); Mean Corpuscular Hemoglobin 26.6 pg (28.0-33.3); Mean Corpuscular Volume 92.2 fL (83.0-100.0); Mean Platelet Volume 9.9 fL (9.4-12.4); Monocytes # 0.8 K/mcL (0.0-1.3); Monocytes % 8.5 %; Neutrophils # 6.5 K/mcL (1.6-8.9); Platelet Count 273 K/mcL (140-400); Red Blood Count 3.35 M/mcL (4.19-5.50); Red Cell Distribution Width 14.8 % (11.5-14.5); Segmented Neutrophils % 73.5 %; White Blood Count 8.9 K/mcL (4.3-11.1)
[2021-05-06] MEDS: levETIRAcetam 250 MG TABLET PO SCH (07:42)
[2021-05-06] MEDS: Furosemide 40 MG TABLET PO SCH (07:42)
[2021-05-06] MEDS: Metoprolol XL (24 HR) Succ 25 MG TAB.ER.24H PO SCH (07:42)
[2021-05-06] MEDS: Lactulose Oral Soln 20 GM/30 ML UDC PO SCH ×4 (07:42→20:59)
[2021-05-06] MEDS: Aspirin 81 MG TAB.CHEW PO SCH (07:42)
[2021-05-06] MEDS: Pyridoxine (B-6) 50 MG TABLET PO SCH (07:42)
[2021-05-06] MEDS: Insulin LISPRO 300 UNITS/3 ML VIAL SUBQ SCH ×4 (07:43→20:57)
[2021-05-06] MEDS: *HR* OxyCODONE Immed Rel 5 MG TABLET PO PRN ×2 (16:40→23:51)
[2021-05-06] MEDS: Melatonin 3 MG TABLET PO SCH (21:01)
[2021-05-07] MEDS: Ipratropium/Albuterol Neb 3 ML IH PRN (00:21)
[2021-05-07 01:20] LABS: Hematocrit 29.7 % (37.5-50.1); Hemoglobin 8.9 g/dL (12.9-16.9); Mean Corpuscular Hemoglobin 27.6 pg (28.0-33.3); Mean Corpuscular Volume 92.2 fL (83.0-100.0); Mean Platelet Volume 9.8 fL (9.4-12.4); Platelet Count 251 K/mcL (140-400); Red Blood Count 3.22 M/mcL (4.19-5.50); Red Cell Distribution Width 14.9 % (11.5-14.5); White Blood Count 6.4 K/mcL (4.3-11.1)
[2021-05-07 02:03] LABS: BUN/Creatinine Ratio 25 (6-26); Blood Urea Nitrogen 16 mg/dL (8-23); Calcium 8.9 mg/dL (8.6-10.3); Carbon Dioxide > 45 mEq/L (23-29); Chloride 93 mEq/L (98-107); Glucose 216 mg/dL (70-105); Magnesium 1.4 mg/dL (1.6-2.6); Osmolality,Calculated 306 (280-300); Phosphorous 2.6 mg/dL (2.7-4.5); Potassium 3.8 mEq/L (3.5-5.1); Sodium 144 mEq/L (136-145); eGFR For African Americans > 60 (> 60); eGFR For Non-African Americans > 60 (> 60)
[2021-05-07] MEDS: Aspirin 81 MG TAB.CHEW PO SCH (08:02)
[2021-05-07] MEDS: Metoprolol XL (24 HR) Succ 25 MG TAB.ER.24H PO SCH (08:02)
[2021-05-07] MEDS: levETIRAcetam 250 MG TABLET PO SCH (08:02)
[2021-05-07] MEDS: Pyridoxine (B-6) 50 MG TABLET PO SCH (08:02)
[2021-05-07] MEDS: *HR* OxyCODONE Immed Rel 5 MG TABLET PO PRN ×3 (08:03→21:36)
[2021-05-07] MEDS: Furosemide 40 MG TABLET PO SCH (08:03)
[2021-05-07] MEDS: Lactulose Oral Soln 20 GM/30 ML UDC PO SCH ×4 (08:04→21:34)
[2021-05-07] MEDS: Insulin LISPRO 300 UNITS/3 ML VIAL SUBQ SCH ×4 (08:06→21:34)
[2021-05-07] MEDS: Melatonin 3 MG TABLET PO SCH (21:35)
[2021-05-08] MEDS ORDERED: Benzonatate 100 MG CAPSULE PO PRN (01:11)
[2021-05-08] MEDS ORDERED: Menthol 1 EACH LOZENGE PO PRN (01:11)
[2021-05-08] MEDS: *HR* OxyCODONE Immed Rel 5 MG TABLET PO PRN ×4 (04:09→23:40)
[2021-05-08 04:40] LABS: Basophils # 0.1 K/mcL (0.0-0.2); Basophils % 0.7 %; Eosinophils # 0.3 K/mcL (0.0-0.6); Hematocrit 32.1 % (37.5-50.1); Hemoglobin 9.3 g/dL (12.9-16.9); Immature Granulocytes % 0.4 % (0-4); Lymphocytes # 1.2 K/mcL (0.6-4.6); Mean Corpuscular Hemoglobin 26.6 pg (28.0-33.3); Monocytes # 0.5 K/mcL (0.0-1.3); Monocytes % 7.8 %; Neutrophils # 4.6 K/mcL (1.6-8.9); Platelet Count 257 K/mcL (140-400); Red Blood Count 3.49 M/mcL (4.19-5.50); Segmented Neutrophils % 68.1 %; White Blood Count 6.8 K/mcL (4.3-11.1)
[2021-05-08 05:10] LABS: BUN/Creatinine Ratio 27 (6-26); Blood Urea Nitrogen 16 mg/dL (8-23); Calcium 8.8 mg/dL (8.6-10.3); Carbon Dioxide > 45 mEq/L (23-29); Chloride 91 mEq/L (98-107); Glucose 190 mg/dL (70-105); Magnesium 1.7 mg/dL (1.6-2.6); Osmolality,Calculated 302 (280-300); Phosphorous 2.2 mg/dL (2.7-4.5); Potassium 3.4 mEq/L (3.5-5.1); Sodium 143 mEq/L (136-145); eGFR For African Americans > 60 (> 60); eGFR For Non-African Americans > 60 (> 60)
[2021-05-08] MEDS: Furosemide 40 MG TABLET PO SCH (07:50)
[2021-05-08] MEDS: Lactulose Oral Soln 20 GM/30 ML UDC PO SCH ×4 (07:50→20:02)
[2021-05-08] MEDS: Aspirin 81 MG TAB.CHEW PO SCH (07:51)
[2021-05-08] MEDS: Metoprolol XL (24 HR) Succ 25 MG TAB.ER.24H PO SCH (07:51)
[2021-05-08] MEDS: Pyridoxine (B-6) 50 MG TABLET PO SCH (07:52)
[2021-05-08] MEDS: Insulin LISPRO 300 UNITS/3 ML VIAL SUBQ SCH ×4 (07:52→22:59)
[2021-05-08] MEDS: levETIRAcetam 250 MG TABLET PO SCH (07:52)
[2021-05-08] MEDS: acetaZOLAMIDE 250 MG TABLET PO SCH ×3 (12:32→20:01)
[2021-05-08] MEDS: Melatonin 3 MG TABLET PO SCH (20:01)
[2021-05-08] MEDS: Insulin DETEMIR 100 UNIT/ML X5UNITS SUBQ SCH (22:58)
[2021-05-09 02:26] LABS: BUN/Creatinine Ratio 25 (6-26); Blood Urea Nitrogen 16 mg/dL (8-23); Carbon Dioxide 43 mEq/L (23-29); Chloride 95 mEq/L (98-107); Glucose 197 mg/dL (70-105); Magnesium 1.6 mg/dL (1.6-2.6); Osmolality,Calculated 299 (280-300); Phosphorous 3.5 mg/dL (2.7-4.5); Potassium 3.8 mEq/L (3.5-5.1); Sodium 141 mEq/L (136-145); eGFR For African Americans > 60 (> 60); eGFR For Non-African Americans > 60 (> 60)
[2021-05-09] MEDS: Insulin LISPRO 300 UNITS/3 ML VIAL SUBQ SCH ×4 (09:52→21:31)
[2021-05-09] MEDS: *HR* OxyCODONE Immed Rel 5 MG TABLET PO PRN ×3 (10:06→21:14)
[2021-05-09] MEDS: Lactulose Oral Soln 20 GM/30 ML UDC PO SCH ×4 (10:08→21:13)
[2021-05-09] MEDS: levETIRAcetam 250 MG TABLET PO SCH (10:08)
[2021-05-09] MEDS: Aspirin 81 MG TAB.CHEW PO SCH (10:08)
[2021-05-09] MEDS: Metoprolol XL (24 HR) Succ 25 MG TAB.ER.24H PO SCH (10:08)
[2021-05-09] MEDS: Pyridoxine (B-6) 50 MG TABLET PO SCH (10:08)
[2021-05-09] MEDS: Furosemide 40 MG TABLET PO SCH (10:14)
[2021-05-09] MEDS: Insulin DETEMIR 100 UNIT/ML X5UNITS SUBQ SCH (10:16)
[2021-05-09] MEDS: Melatonin 3 MG TABLET PO SCH (21:13)
[2021-05-10] MEDS: Insulin DETEMIR 100 UNIT/ML X5UNITS SUBQ SCH ×3 (03:16→20:31)
[2021-05-10] MEDS: *HR* OxyCODONE Immed Rel 5 MG TABLET PO PRN ×3 (04:48→20:30)
[2021-05-10] MEDS: Pyridoxine (B-6) 50 MG TABLET PO SCH (08:39)
[2021-05-10] MEDS: Lactulose Oral Soln 20 GM/30 ML UDC PO SCH ×4 (08:40→20:30)
[2021-05-10] MEDS: Aspirin 81 MG TAB.CHEW PO SCH (08:40)
[2021-05-10] MEDS: Furosemide 40 MG TABLET PO SCH (08:40)
[2021-05-10] MEDS: levETIRAcetam 250 MG TABLET PO SCH (08:40)
[2021-05-10] MEDS: Metoprolol XL (24 HR) Succ 25 MG TAB.ER.24H PO SCH (08:40)
[2021-05-10] MEDS: Insulin LISPRO 300 UNITS/3 ML VIAL SUBQ SCH ×4 (08:41→20:31)
[2021-05-10] MEDS: Dexmedetomidine HCl 400 MCG/100 ML MLS IVC SCH (19:23)
[2021-05-10] MEDS: Melatonin 3 MG TABLET PO SCH (20:30)
[2021-05-11] MEDS: Lactulose Oral Soln 20 GM/30 ML UDC PO SCH ×4 (08:07→21:58)
[2021-05-11] MEDS: Insulin LISPRO 300 UNITS/3 ML VIAL SUBQ SCH ×4 (08:07→21:44)
[2021-05-11] MEDS: Pyridoxine (B-6) 50 MG TABLET PO SCH (08:08)
[2021-05-11] MEDS: Aspirin 81 MG TAB.CHEW PO SCH (08:08)
[2021-05-11] MEDS: Furosemide 40 MG TABLET PO SCH (08:08)
[2021-05-11] MEDS: Metoprolol XL (24 HR) Succ 25 MG TAB.ER.24H PO SCH (08:09)
[2021-05-11] MEDS: *HR* OxyCODONE Immed Rel 5 MG TABLET PO PRN ×3 (08:13→21:58)
[2021-05-11] MEDS: levETIRAcetam 250 MG TABLET PO SCH (08:13)
[2021-05-11] MEDS: Insulin DETEMIR 100 UNIT/ML X5UNITS SUBQ SCH ×2 (08:14→21:58)
[2021-05-11] MEDS: Melatonin 3 MG TABLET PO SCH (21:58)
[2021-05-12] MEDS: *HR* OxyCODONE Immed Rel 5 MG TABLET PO PRN (05:23)
[2021-05-12 06:49] VITALS: BP 135/92
[2021-05-12] MEDS: levETIRAcetam 250 MG TABLET PO SCH (07:39)
[2021-05-12] MEDS: Metoprolol XL (24 HR) Succ 25 MG TAB.ER.24H PO SCH (07:39)
[2021-05-12] MEDS: Aspirin 81 MG TAB.CHEW PO SCH (07:40)
[2021-05-12] MEDS: Pyridoxine (B-6) 50 MG TABLET PO SCH (07:40)
[2021-05-12] MEDS: Furosemide 40 MG TABLET PO SCH (07:40)
[2021-05-12] MEDS: Insulin LISPRO 300 UNITS/3 ML VIAL SUBQ SCH (07:41)
[2021-05-12] MEDS: Insulin DETEMIR 100 UNIT/ML X5UNITS SUBQ SCH (07:41)
[2021-05-12] MEDS: Lactulose Oral Soln 20 GM/30 ML UDC PO SCH (07:42)
[2021-05-12] MEDS ORDERED: *HR* OxyCODONE Immed Rel 5 MG TABLET PO ONE (09:23)
== END 2021-05-12 10:20 | DRG 190 ==
LOC: 2NENU → SUATTDRO 18:24 → 2NNU 05-02 12:38 → 2NENU 05-07 11:07
PROVIDERS: ADMIT Internal Medicine; ATTEND Internal Medicine

== ENCOUNTER 2021-12-15 04:44 | Inpatient (IN) ==
[~2021-12-15 04:44] MED LIST: Naloxone 0.4 MG/ML INJ IVP PRN; Ondansetron 4 MG/2 ML VIAL IVP PRN
[2021-12-15] MEDS ORDERED: Dextrose Gel 15 GM/37.5 ML TUBE PO PRN ×2 (04:49)
[2021-12-15] MEDS ORDERED: D5% in Water 1,000 ML IVC PRN (04:49)
[2021-12-15] MEDS ORDERED: *HR* Dextrose 50 % in Water (Syg) 50 ML SYRINGE IVP PRN (04:49)
[2021-12-15] MEDS ORDERED: Ipratropium/Albuterol Neb 3 ML IH PRN (04:49)
[2021-12-15 05:25] LABS: Basophils % 0.5 %
[2021-12-15 05:26] LABS: Eosinophils # 0.1 K/mcL (0.0-0.6); Eosinophils % 1.6 %; Hemoglobin 8.5 g/dL (12.9-16.9); Immature Granulocytes % 0.5 % (0-4); Mean Corpuscular HGB Conc 28.3 g/dL (31.6-35.5); Mean Corpuscular Hemoglobin 27.9 pg (28.0-33.3); Mean Corpuscular Volume 98.4 fL (83.0-100.0); Mean Platelet Volume 9.6 fL (9.4-12.4); Monocytes # 0.2 K/mcL (0.0-1.3); Monocytes % 5.5 %; Neutrophils # 3.3 K/mcL (1.6-8.9); Platelet Count 111 K/mcL (140-400); Red Blood Count 3.05 M/mcL (4.19-5.50); Red Cell Distribution Width 15.7 % (11.5-14.5); Segmented Neutrophils % 74.9 %; White Blood Count 4.4 K/mcL (4.3-11.1)
[2021-12-15 05:32] LABS: INR 1.1; Prothrombin Time 12.3 Seconds (9.4-12.1)
[2021-12-15 05:45] LABS: Lymphocytes # 0.8 K/mcL (0.6-4.6)
[2021-12-15 05:46] LABS: Magnesium 1.7 mg/dL (1.6-2.6); Phosphorous 3.2 mg/dL (2.7-4.5)
[2021-12-15 05:48] LABS: Alanine Aminotransferase 15 Units/L (7-52); Albumin 3.7 g/dL (3.5-5.7); Albumin/Globulin Ratio 1.2 (1.1-2.2); Alkaline Phosphatase 69 Units/L (34-104); Aspartate Amino Transferase 23 Units/L (13-39); Bilirubin,Direct 0.1 mg/dL (0.0-0.2); Bilirubin,Indirect 0.2 mg/dL (0.0-1.0); Bilirubin,Total 0.3 mg/dL (0.3-1.0); Total Protein 6.7 g/dL (6.4-8.9)
[2021-12-15 05:53] LABS: BUN/Creatinine Ratio 26 (6-26); Blood Urea Nitrogen 27 mg/dL (8-23); Calcium 8.4 mg/dL (8.6-10.3); Carbon Dioxide 44 mEq/L (23-29); Chloride 100 mEq/L (98-107); Glucose 237 mg/dL (70-105); Osmolality,Calculated 307 (280-300); Potassium 3.8 mEq/L (3.5-5.1); Sodium 142 mEq/L (136-145); Troponin I 0.04 ng/mL (< 0.04); eGFR For African Americans > 60 (> 60); eGFR For Non-African Americans > 60 (> 60)
[2021-12-15 06:00] LABS: Thyroid Stimulating Hormone 3.082 mcIU/mL (0.340-5.600)
[2021-12-15 06:18] LABS: Platelet Estimate Slight Decrease (Normal)
[2021-12-15 07:50] LABS: Bilirubin,Urine Negative (Negative); Blood,Urine Negative (Negative); Clarity,Urine Clear (Clear); Color,Urine Yellow (Yellow); Glucose,Urine (UA) Normal (Normal); Hyaline Casts,Urine Few per lpf (None Seen); Ketones,Urine Negative (Negative); Leukocyte Esterase,Urine Negative (Negative); Mucus,Urine Few per lpf (None-Few); Nitrite,Urine Negative (Negative); PH,Urine 6.5 pH Units (5.0-8.0); Protein,Urine 30 mg/dL (Neg-Trace); RBC,Urine 0-3 per hpf (0-3); Specific Gravity,Urine 1.026 (1.010-1.025); Urobilinogen,Urine Normal (Normal); WBC,Urine 0-3 per hpf (0-3)
[2021-12-15] MEDS: Insulin LISPRO 300 UNITS/3 ML VIAL SUBQ SCH ×3 (08:17→17:17)
[2021-12-15 10:21] LABS: VBG HCO3 36 mEq/L (21-27); VBG PCO2 63 mmHg (41-51); VBG PH 7.37 pH Units (7.32-7.42); VBG PO2 168 mmHg (25-50)
[2021-12-15 11:15] LABS: Adenovirus Not Detected (Not Detect); Coronavirus 229E Not Detected (Not Detect); Coronavirus HKU1 Not Detected (Not Detect); Coronavirus NL63 Not Detected (Not Detect); Coronavirus OC43 Not Detected (Not Detect); Human Metapneumovirus Not Detected (Not Detect); SARS-CoV-2 Not Detected (Not Detect)
[2021-12-15 11:16] LABS: Bordetella Pertussis Not Detected (Not Detect); Chlamydophila pneumoniae Not Detected (Not Detect); Human Rhinovirus/Enterovirus Not Detected (Not Detect); Influenza A Subtype 2009 H1 Not Detected (Not Detect); Influenza B Not Detected (Not Detect); Mycoplasma pneumoniae Not Detected (Not Detect); Parainfluenza Virus 1 Not Detected (Not Detect); Parainfluenza Virus 2 Not Detected (Not Detect); Parainfluenza Virus 3 Not Detected (Not Detect); Parainfluenza Virus 4 Not Detected (Not Detect); Respiratory Syncytial Virus Not Detected (Not Detect)
[2021-12-15 12:37] LABS: Salicylate < 2.5 mg/dL (15.0-30.0)
[2021-12-15 13:39] LABS: Amphetamine Screen,Urine Negative ng/mL (Cutoff=1000); Barbiturate Screen,Urine Negative ng/mL (Cutoff=200); Benzodiazepines Screen,Urine Negative ng/mL (Cutoff=200); Cannabinoid Screen,Urine Negative ng/mL (Cutoff = 50); Cocaine Screen,Urine Negative ng/mL (Cutoff= 300); Opiate Screen,Urine Positive ng/mL (Cutoff=300); Phencyclidine Screen,Urine Negative ng/mL (Cutoff=25)
[2021-12-15] MEDS ORDERED: Furosemide 20 MG/2 ML VIAL IVP ONE (14:17)
[2021-12-15] MEDS ORDERED: Albuterol 2.5 MG/3 ML NEBULIZER IH PRN (14:17)
[2021-12-15] MEDS: MethylPREDNISolone 40 MG/ML VIAL IVP SCH (15:31)
[2021-12-15] MEDS: Ipratropium/Albuterol Neb 3 ML IH SCH ×3 (15:42→23:42)
[2021-12-16] MEDS: MethylPREDNISolone 40 MG/ML VIAL IVP SCH ×2 (00:19→08:00)
[2021-12-16 01:37] LABS: Red Cell Distribution Width 15.6 % (11.5-14.5)
[2021-12-16 01:38] LABS: Hematocrit 28.8 % (37.5-50.1); Hemoglobin 8.1 g/dL (12.9-16.9); Mean Corpuscular HGB Conc 28.1 g/dL (31.6-35.5); Mean Corpuscular Hemoglobin 26.8 pg (28.0-33.3); Mean Corpuscular Volume 95.4 fL (83.0-100.0); Mean Platelet Volume 10.5 fL (9.4-12.4); Platelet Count 112 K/mcL (140-400); Red Blood Count 3.02 M/mcL (4.19-5.50); White Blood Count 4.6 K/mcL (4.3-11.1)
[2021-12-16 01:55] LABS: BUN/Creatinine Ratio 29 (6-26); Blood Urea Nitrogen 23 mg/dL (8-23); Calcium 8.5 mg/dL (8.6-10.3); Carbon Dioxide 39 mEq/L (23-29); Chloride 100 mEq/L (98-107); Glucose 204 mg/dL (70-105); Osmolality,Calculated 306 (280-300); Potassium 3.7 mEq/L (3.5-5.1); Sodium 143 mEq/L (136-145); eGFR For African Americans > 60 (> 60); eGFR For Non-African Americans > 60 (> 60)
[2021-12-16 02:05] LABS: INR 1.1; Prothrombin Time 12.2 Seconds (9.4-12.1)
[2021-12-16 02:12] LABS: Activated Partial Thrombo Time 28.3 Seconds (26.0-36.0)
[2021-12-16] MEDS ORDERED: Acetaminophen 325 MG TABLET PO PRN (04:18)
[2021-12-16] MEDS: Ipratropium/Albuterol Neb 3 ML IH SCH ×3 (04:25→13:52)
[2021-12-16] MEDS: Insulin LISPRO 300 UNITS/3 ML VIAL SUBQ SCH ×2 (08:08→11:32)
[2021-12-16 10:51] VITALS: BP 152/66; PULSE 98; TEMP 97.9; O2SAT 98
== END 2021-12-16 14:32 | disposition hospice, inpatient (51) | DRG 189 ==
LOC: 2NENU → SUATTDRO 04:44
PROVIDERS: ADMIT Internal Medicine; ATTEND Internal Medicine